=== PATIENT | female | born 1945 | race Caucasian/White ===

== ENCOUNTER 2018-05-26 11:12 | Outpatient (REF) | payer OTHER, SELFPAY | END 2018-05-26 11:32 | LOC: NCHCN 11:12 | PROVIDERS: PCP Family Medicine; Visit Provider Family Medicine | DX: R23.8 Other skin changes (principal); Z76.89 Persons encountering health services in other specified circumstances | CPT/HCPCS: 85014; 85018 ==

== ENCOUNTER 2018-11-09 11:53 | Inpatient (IN) | payer OTHER, SELFPAY ==
[2018-11-09] VITALS (68 sets, daily range): BP systolic 92–149; BP diastolic 47–102; PULSE 81–126; RESP 2–36; TEMP 36–37.6; O2SAT 84–99
--- NOTE | 2018-11-09 12:09 | DI.CT_ITS ---
SYMPTOMS/DIAGNOSIS: COUGH, HEMOPTYSIS, HYPOXIC, ? PE OR DISSECTION CT ANGIOGRAPHY OF THE CHEST: CT angiography was performed with multi slice acquisition and multi planar and 3D reconstruction. The pulmonary arteries, as well as aorta, are well opacified with IV contrast. There is no evidence of pulmonary emboli or aortic dissection. There are atherosclerotic changes of the thoracic aorta as well as upper abdominal aorta. There is mural thrombus seen in the abdominal aortic region. No pleural or pericardial effusions are seen. There is biatrial enlargement. There is an area of spiculation peripherally in the right upper lobe measuring roughly 3 x 2.2 x 1.2 cm. There is slight adjacent pleural thickening. No additional nodules are identified. There is a right inferior hilar lymph node measuring 1.8 cm in greatest dimension and a left inferior hilar lymph node measuring 1.2 cm. There are underlying changes of mild to moderate central lobular emphysema, greatest in the upper lobes. There are multiple areas of bony sclerosis within the thoracic spine as well as at the sternomanubrial junction, which may be related to degenerative changes. The findings do not appear significantly changed when compared with the chest CT from 2013. Surgical clips are seen in the right upper quadrant. There is calcification at the proximal left internal carotid artery and severe stenosis. This was seen on a previous carotid ultrasound from 2010. IMPRESSION: Spiculated area measuring 3 cm in the right upper lobe suspicious for lung carcinoma. Mildly enlarged bilateral hilar lymph nodes are seen.
[2018-11-09] MEDS: Normal Saline 500 ML 1000 ML IV (12:10)
--- NOTE | 2018-11-09 12:11 | W.ED.GENAD ---
Discharge Plan Disposition Patient Disposition: [facility] INPATIENT Condition: Stable Discharge Details Chief Complaint: SOB Clinical Impression: Lung mass, Hypoxemia, Hemoptysis Primary Care Provider: Sherwin Ceja ED Provider: Arnulfo Gonsalves Home Meds and New Rx's Prescriptions: No Action atorvastatin [Lipitor] 80 mg Tablet 80 mg PO QPM RF: 0 cromolyn 4 % Drops 1 drp OPHTHALMIC (EYE) QID PRNRF: 0 amlodipine 2.5 mg Tablet 2.5 mg PO DAILY RF: 0 warfarin [Coumadin] 2 mg Tablet 2 mg PO DAILY RF: 0 warfarin 5 mg Tablet 5 mg PO DAILY RF: 0 albuterol sulfate [ProAir HFA] 90 mcg/actuation Hfa Aerosol Inhaler 2 puff INHALATION QID PRNRF: 0 Medical Decision Making This is a very pleasant 73-year-old female with a past medical history of A. fib on Coumadin, COPD, high cholesterol and hypertension who presents with 3 days of cough, shortness of breath and a small amount of hemoptysis. She is normally not on oxygen, she has had worsening of her symptoms over the last 24-48 hours. She went to her PCP where she was noted to be in the high 70s to low 80s, and here in the ER on arrival she was in the mid to low 80s. Physical exam demonstrates crackles and mild wheezes. Concern for potential PE with this less likely being on Coumadin, malignancy, dissection, bronchitis, Jocelyne's granulomatosis. We will evaluate for any significant abnormality, supratherapeutic INR, and significant lung pathology. 2:[address] scan has returned and shows evidence of a spiculated mass concerning for malignancy. Hemoglobin is stable, troponin normal, platelets stable, INR 2.8. Calcium is within normal limits. Patient is hemodynamically stable aside for her mild hypoxemia, she has not had any hemoptysis here during her stay. I did contact [facility] and spoke with Dr. Ding, and at this time they also do agree with the need for PET scan, E bus, and bronchoscopy however they do not currently have any bed availability. He did go back and talk to the patient about contacting the [facility] the patient has made it extremely clear that she does not want any transfer to any other facility, and that the only thing that she would be willing to do would be to stay overnight here. I made it clear to her that we do not have any definitive management capabilities and the patient understands this, she shows clear decision-making capacity, and understands the risks and benefits of this. Because of the patient's hypoxemia, I do feel the need she needs pulmonary function testing and outpatient oxygen therapy. With no evidence of preethi hemoptysis, otherwise currently stable assessment, I do think it would be reasonable but not ideal to keep her overnight for PET scan, setting up oxygen, and getting follow-up at [facility]. We have contacted [facility] and they will start this follow-up process at this time. 4:28 PM We have reached out to the [facility], they do think that they will have a room available for the patient tomorrow for further management of the patient's medical issue. We have contacted the hospitalist here and Dr Wesley has agreed to accept the patient for admission. I have extensively reviewed the treatment plan with the patient. I have addressed all patient concerns at this time. I have also discussed the plan with the admitting physician and they agree with the current assessment and plan and have agreed to assume responsibility for the patient. All parties demonstrate verbal understanding and agreement with our assessment and plan at this time. EKG 12: 02 Rate 108, atrial fibrillation, intervals normal, no significant ST elevations or depression, no T wave inversions. No significant Q waves CT ANGIOGRAPHY OF THE CHEST: CT angiography was performed with multi slice acquisition and multi planar and 3D reconstruction. The pulmonary arteries, as well as aorta, are well opacified with IV contrast. There is no evidence of pulmonary emboli or aortic dissection. There are atherosclerotic changes of the thoracic aorta as well as upper abdominal aorta. There is mural thrombus seen in the abdominal aortic region. No pleural or pericardial effusions are seen. There is biatrial enlargement. There is an area of spiculation peripherally in the right upper lobe measuring roughly 3 x 2.2 x 1.2 cm. There is slight adjacent pleural thickening. No additional nodules are identified. There is a right inferior hilar lymph node measuring 1.8 cm in greatest dimension and a left inferior hilar lymph node measuring 1.2 cm. There are underlying changes of mild to moderate central lobular emphysema, greatest in the upper lobes. There are multiple areas of bony sclerosis within the thoracic spine as well as at the sternomanubrial junction, which may be related to degenerative changes. The findings do not appear significantly changed when compared with the chest CT from 2013. Surgical clips are seen in the right upper quadrant. There is calcification at the proximal left internal carotid artery and severe stenosis. This was seen on a previous carotid ultrasound from 2010. IMPRESSION: Spiculated area measuring 3 cm in the right upper lobe suspicious for lung carcinoma. Mildly enlarged bilateral hilar lymph nodes are seen. [id number]: Total DLP = 0.00 mGy-cm HPI General Date/Time Provider Initiated Documentation: 11/09/18 12:02. HPI Narrative: 73-year-old female with a past medical history of COPD, high cholesterol, A. fib on Coumadin, and hypertension who presents today with 3 days of cough and shortness of breath. She has had associated small amount of hemoptysis with this cough over the last 3 days. She feels like there is something stuck in her chest. She denies any significant pleuritic chest pain, chest pain in general, arm neck or shoulder pain. She denies any fever or chills. She denies any history of cardiac disease, malignancy, but does have a strong history of tobacco use. She denies any history of [place] or stroke. She denies any other complaints at this time. She is not on home oxygen. She denies any fever, chills. She denies any other sick contacts. She denies any episodes like this in the past. Related Data Home Medications Medication Instructions Recorded Confirmed albuterol sulfate [ProAir HFA] 2 puff INHALATION QID PRN 11/09/18 11/09/18 amlodipine 2.5 mg PO DAILY 11/09/18 11/09/18 atorvastatin [Lipitor] 80 mg PO QPM 11/09/18 11/09/18 cromolyn 1 drp OPHTHALMIC (EYE) QID PRN 11/09/18 11/09/18 warfarin 5 mg PO DAILY 11/09/18 11/09/18 warfarin [Coumadin] 2 mg PO DAILY 11/09/18 11/09/18 Allergies Allergy/AdvReac Type Severity Reaction Status Date / Time No Known Allergies Allergy Unverified 11/09/18 12:09 General Stated Complaint: SOB BOGDAN: 2 Review of Systems Review of Systems All systems reviewed & are unremarkable except as noted in HPI and below PFSH Social History Smoking and Tabacco status: Current every day Exam Narrative Exam Narrative: 1.Const: Well-nourished, Well-developed, appearing stated age 2.Eyes: PERRL, no conjunctival injection, and symmetrical lids. 3.ENT: Atraumatic external nose and ears. Moist MM. Neck: Symmetric, trachea midline, No thyromegaly. 4.CVS: +S1/S2, No murmurs or gallops. Peripheral pulses 2+ and equal in all extremities. Brisk capillary refill in all extremities. 5.RESP: Unlabored respiratory effort. Notable crackles throughout, mild wheeze, minimal rhonchi. 6.GI: Soft, Nontender/Nondistended, No hepatosplenomegaly. No guarding or rebound. 7.MSK: Normocephalic/Atraumatic, Extremities w/o deformity or ttp No cyanosis or clubbing, Normal movement of all extremities 8.Skin: Warm, Dry. No rashes or lesions. 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 Sensation grossly intact, no focal neurologic deficits. 10.Psych: (AAO) x3. Appropriate mood and affect Course Vital Signs Pulse Oximetry 84 L 11/09/18 12:00 Temperature 37.2 C 11/09/18 12:07 Temperature Source Oral 11/09/18 12:07 Pulse 102 H 11/09/18 12:01 Respiratory Rate 25 H 11/09/18 12:01 Respiratory Effort Accessory Muscle Use 11/09/18 12:04 Blood Pressure 134/60 11/09/18 12:01 Blood Pressure Position Supine 11/09/18 12:01 Pulse Oximetry 84 L 11/09/18 12:01 Oxygen Delivery Method Room Air 11/09/18 12:01 Oxygen Flow Rate 0 11/09/18 12:01 Pain Level 0 11/09/18 12:01
--- NOTE | 2018-11-09 12:15 | ED.GENADUL_ITS ---
Discharge Plan Disposition Patient Disposition: [facility] INPATIENT Condition: Stable Discharge Details Chief Complaint: SOB Clinical Impression: Lung mass, Hypoxemia, Hemoptysis Primary Care Provider: Sherwin Ceja ED Provider: Arnulfo Gonsalves Home Meds and New Rx's Prescriptions: No Action atorvastatin [Lipitor] 80 mg Tablet 80 mg PO QPM RF: 0 cromolyn 4 % Drops 1 drp OPHTHALMIC (EYE) QID PRNRF: 0 amlodipine 2.5 mg Tablet 2.5 mg PO DAILY RF: 0 warfarin [Coumadin] 2 mg Tablet 2 mg PO DAILY RF: 0 warfarin 5 mg Tablet 5 mg PO DAILY RF: 0 albuterol sulfate [ProAir HFA] 90 mcg/actuation Hfa Aerosol Inhaler 2 puff INHALATION QID PRNRF: 0 Medical Decision Making This is a very pleasant 73-year-old female with a past medical history of A. fib on Coumadin, COPD, high cholesterol and hypertension who presents with 3 days of cough, shortness of breath and a small amount of hemoptysis. She is normally not on oxygen, she has had worsening of her symptoms over the last 24- 48 hours. She went to her PCP where she was noted to be in the high 70s to low 80s, and here in the ER on arrival she was in the mid to low 80s. Physical exam demonstrates crackles and mild wheezes. Concern for potential PE with this less likely being on Coumadin, malignancy, dissection, bronchitis, Jocelyne's granulomatosis. We will evaluate for any significant abnormality, supr atherapeutic INR, and significant lung pathology. 2:[address] scan has returned and shows evidence of a spiculated mass concerning for malignancy. Hemoglobin is stable, troponin normal, platelets stable, INR 2.8. Calcium is within normal limits. Patient is hemodynamically stable aside for her mild hypoxemia, she has not had any hemoptysis here during her stay. I did contact [facility] and spoke with Dr. Ding, and at this time they also do agree with the need for PET scan, E bus, and bronchoscopy however they do not currently have any bed availability. He did go back and talk to the patient about contacting the [facility] the patient has made it extremely clear that she does not want any transfer to any other facility, and that the only thing that she would be willing to do would be to stay overnight here. I made it clear to her that we do not have any definitive management capabilities and the patient understands this, she shows clear decision-making capacity, and understands the risks and benefits of this. Because of the patient's hypoxemia, I do feel the need she needs pulmonary function testing and outpatient oxygen therapy. With no evidence of preethi hemoptysis, otherwise currently stable assessment, I do think it would be reasonable but not ideal to keep her overnight for PET scan, setting up oxygen, and getting follow-up at [facility]. We have contacted [facility] and they will start this follow-up process at this time. 4:28 PM We have reached out to the [facility], they do think that they will have a room available for the patient tomorrow for further management of the patient's medical issue. We have contacted the hospitalist here and Dr Wesley has agreed to accept the patient for admission. I have extensively reviewed the treatment plan with the patient. I have addressed all patient concerns at this time. I have also discussed the plan with the admitting physician and they agree with the current assessment and plan and have agreed to assume responsibility for the patient. All parties demonstrate verbal understanding and agreement with our assessment and plan at this time. EKG 12: 02 Rate 108, atrial fibrillation, intervals normal, no significant ST elevations or depression, no T wave inversions. No significant Q waves CT ANGIOGRAPHY OF THE CHEST: CT angiography was performed with multi slice acquisition and multi planar and 3D reconstruction. The pulmonary arteries, as well as aorta, are well opacified with IV contrast. There is no evidence of pulmonary emboli or aortic dissection. There are atherosclerotic changes of the thoracic aorta as well as upper abdominal aorta. There is mural thrombus seen in the abdominal aortic region. No pleural or pericardial effusions are seen. There is biatrial enlargement. There is an area of spiculation peripherally in the right upper lobe measuring roughly 3 x 2.2 x 1.2 cm. There is slight adjacent pleural thickening. No additional nodules are identified. There is a right inferior hilar lymph node measuring 1.8 cm in greatest dimension and a left inferior hilar lymph node measuring 1.2 cm. There are underlying changes of mild to moderate central lobular emphysema, greatest in the upper lobes. There are multiple areas of bony sclerosis within the thoracic spine as well as at the sternomanubrial junction, which may be related to degenerative changes. The findings do not appear significantly changed when compared with the chest CT from 2013. Surgical clips are seen in the right upper quadrant. There is calcification at the proximal left internal carotid artery and severe stenosis. This was seen on a previous carotid ultrasound from 2010. IMPRESSION: Spiculated area measuring 3 cm in the right upper lobe suspicious for lung carcinoma. Mildly enlarged bilateral hilar lymph nodes are seen. [id number]: Total DLP = 0.00 mGy-cm HPI General Date/Time Provider Initiated Documentation: 11/09/18 12:02 . HPI Narrative: 73-year-old female with a past medical history of COPD, high cholesterol, A. fib on Coumadin, and hypertension who presents today with 3 days of cough and shortness of breath. She has had associated small amount of hemoptysis with this cough over the last 3 days. She feels like there is something stuck in her chest. She denies any significant pleuritic chest pain, chest pain in general, arm neck or shoulder pain. She denies any fever or chills. She denies any history of cardiac disease, malignancy, but does have a strong history of tobacco use. She denies any history of [place] or stroke. She denies any other complaints at this time. She is not on home oxygen. She denie s any fever, chills. She denies any other sick contacts. She denies any episodes like this in the past. Related Data Home Medications Medication Instructions Recorded Confirmed albuterol sulfate [ProAir HFA] 2 puff INHALATION QID PRN 11/09/18 11/09/18 amlodipine 2.5 mg PO DAILY 11/09/18 11/09/18 atorvastatin [Lipitor] 80 mg PO QPM 11/09/18 11/09/18 cromolyn 1 drp OPHTHALMIC (EYE) QID PRN 11/09/18 11/09/18 warfarin 5 mg PO DAILY 11/09/18 11/09/18 warfarin [Coumadin] 2 mg PO DAILY 11/09/18 11/09/18 Allergies Allergy/AdvReac Type Severity Reaction Status Date / Time No Known Allergies Allergy Unverified 11/09/18 12:09 General Stated Complaint: SOB BOGDAN: 2 Review of Systems Review of Systems All systems reviewed & are unremarkable except as noted in HPI and below PFSH Social History Smoking and Tabacco status: Current every day Exam Narrative Exam Narrative: 1.Const: Well-nourished, Well-developed, appearing stated age 2.Eyes: PERRL, no conjunctival injection, and symmetrical lids. 3.ENT: Atraumatic external nose and ears. Moist MM. Neck: Symmetric, trachea midline, No thyromegaly. 4.CVS: +S1/S2, No murmurs or gallops. Peripheral pulses 2+ and equal in all extremities. Brisk capillary refill in all extremities. 5.RESP: Unlabored respiratory effort. Notable crackles throughout, mild wheeze, minimal rhonchi. 6.GI: Soft, Nontender/Nondistended, No hepatosplenomegaly. No guarding or rebound. 7.MSK: Normocephalic/Atraumatic, Extremities w/o deformity or ttp No cyanosis or clubbing, Normal movement of all extremities 8.Skin: Warm, Dry. No rashes or lesions. 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 Sensation grossly intact, no focal neurologic deficits. 10.Psych: (AAO) x3. Appropriate mood and affect Course Vital Signs Pulse Oximetry 84 L 11/09/18 12:00 Temperature 37.2 C 11/09/18 12:07 Temperature Source Oral 11/09/18 12:07 Pulse 102 H 11/09/18 12:01 Respiratory Rate 25 H 11/09/18 12:01 Respiratory Effort Accessory Muscle Use 11/09/18 12:04 Blood Pressure 134/60 11/09/18 12:01 Blood Pressure Position Supine 11/09/18 12:01 Pulse Oximetry 84 L 11/09/18 12:01 Oxygen Delivery Method Room Air 11/09/18 12:01 Oxygen Flow Rate 0 11/09/18 12:01 Pain Level 0 11/09/18 12:01
[2018-11-09 12:22] LABS: Abs Immature Grans 0.02 k/cumm (0.0-0.09); Absolute Basophil Count 0.03 k/cumm (0.0-0.2); Absolute Monocyte Count 0.89 k/cumm (0.11-0.7); Absolute Neutrophil Count 5.16 k/cumm (1.2-6.7); Basophils % 0.4; HCT 47.9 % (36.0-46.0); HGB 15.8 g/dL (12.0-15.5); Immature Grans % 0.3; Lymphocytes % 20.8; Mean Corpuscular Hemoglobin 31.7 pg (27.0-33.0); Monocytes % 11.6; Neutrophils % 66.9; Platelet Count 143 x1000/uL (130-400); RBC 4.99 m/cumm (4.00-5.20); RBC Distribution Width 15.1 % (11.7-14.6)
[2018-11-09 12:45] LABS: INR 2.8 (0.9-1.1); PTT Activated 36.1 sec (21.0-31.4); Prothrombin Time 28.2 sec (9.3-11.0)
[2018-11-09 12:58] LABS: ALT 17 U/L (12-78); AST 19 U/L (15-37); Albumin 2.9 g/dL (3.4-5.0); Alkaline Phosphatase 69 U/L (46-116); Anion Gap 2.1 mmol/L (3-11); BUN 12 mg/dL (7-18); Bilirubin, Total 0.4 mg/dL (0.2-1.0); CO2 33.9 mmol/L (21.0-32.0); CREATININE 0.73 mg/dL (0.55-1.02); Calcium 8.6 mg/dL (8.5-10.1); Chloride 101 mmol/L (98-107); Glucose 121 mg/dL (70-100); Potassium 3.7 mmol/L (3.5-5.1); Sodium 137 mmol/L (136-145); Total Protein 6.4 g/dL (6.4-8.2)
[2018-11-09] MEDS: Albuterol/Ipratropium 3 ML UPD VIAL UPD ×3 (13:00→23:17)
[2018-11-09 13:04] LABS: Troponin I < 0.02 ng/mL (0.00-0.06)
[2018-11-09] MEDS: Omnipaque 350 MG/ML 100 ML BTL IV (13:38)
[2018-11-09] MEDS: methylPREDNISolone SUCC 125 MG VIAL IVP (16:35)
--- NOTE | 2018-11-09 17:56 | W.PM.HP.N ---
Date of service: 11/09/18 Time of Service: 17:56 Assessment and Plan (1) COPD (chronic obstructive pulmonary disease): Current visit: Yes Status: Chronic With worsening dyspnea, increased sputum production, hemoptysis and spiculated mass noted on CT scan. Initiate IV Levaquin, steroids, scheduled nebulizer treatments and supplemental oxygen. Encourage smoking cessation. (2) Lung mass: Current visit: Yes Status: Acute Chest CT with Spiculated area measuring 3 cm in the right upper lobe suspicious for lung carcinoma and mildly enlarged bilateral hilar lymph nodes. She has been accepted at [facility] pending bed availability. Contact [facility] tomorrow to determine if a bed is available. Treat COPD exacerbation as above. (3) Smoker: Current visit: Yes Status: Acute With approximately 50 pack year history of smoking and lung mass on CT. Encourage smoking cessation. Nicotine replacement with patch and nicotrol inhaler. (4) Atrial fibrillation: Current visit: Yes Status: Chronic INR 2.8. Hold coumadin in the setting of hemoptysis. Monitor INR. Monitor heart rate. (5) HTN (hypertension): Current visit: Yes Status: Chronic Continue amlodipine per home dose. Continue to monitor BP. (6) Hypercholesteremia: Current visit: Yes Status: Acute Continue high dose Lipitor per home dose. Her medical record indicates that she may have had a cardiac cath in 2013 at [facility]- she was transferred from the ED, there is no documentation on the chart in regard to the outcome. (7) DVT prophylaxis: Current visit: Yes Status: Acute SCDs, hold on chemical prophylaxis including coumadin in the setting of hemoptysis. (8) Discharge planning issues: Current visit: Yes Status: Acute She is a DNR/DNI. She has been accepted at [facility], she will transfer when a bed becomes available. This case was discussed with Dr. Wesley who is in agreement. History of Present Illness Chief Complaint: Shortness of breath, hemoptysis Narrative: Siomara Quinones is a very pleasant 73 year old female with a past medical history significant for COPD, hypercholesterolemia, hypertension and atrial fibrillation on Coumadin who presented to the ED after being seen in her PCP office for progressively worsening SOB, wheezing and a cough with hemoptysis x3 days. She was found to have oxygen saturations in the 70s-80s in the PCP office. In the ED, she was found to be hypoxic with oxygen saturation in the 80s as well. She was afebrile and without leukocycosis. She was referred for chest CT which showed a Spiculated area measuring 3 cm in the right upper lobe suspicious for lung carcinoma and mildly enlarged bilateral hilar lymph nodes. She received IV steroids and nebulizer treatments and was placed on oxygen. Dr. Gonsalves, emergency department attending, contacted [facility] and discussed her case with Dr. Ding who agrees that the patient does need a PET scan and bronchoscopy with biopsy, however, they do not have any beds available at this time. The [facility] was contacted and has accepted the patient, they do not have any beds open at this time, however, they expect to have bed availability tomorrow. She is admitted to the [facility] floor, she will be treated for COPD exacerbation with plans to transfer her to [facility] tomorrow when a bed becomes available. The patient denies any chest pain/pressure, palpitations, she has not been eating and drinking well for the past couple of days due to feeling poorly and a decreased appetite. She denies nausea, vomiting, diarrhea. Her bowels and bladder are functioning normally, she had a normal bowel movement today. She denies dysuria or hematuria. Denies pain, no edema. Review of Systems Review of Systems All systems reviewed & are unremarkable except as noted in HPI and below PFSH Medical History Lung mass (Acute) Smoker (Acute) Atrial fibrillation (Chronic) COPD (chronic obstructive pulmonary disease) (Chronic) HTN (hypertension) (Chronic) Family History Father Hemochromatosis Cirrhosis due to hemochromatosis Diabetes Daughter Heart disease Social History Smoking and Tabacco status: Current every day alcohol intake: never substance use type: does not use Meds Home Medications Medication Instructions Recorded Confirmed Type albuterol sulfate [ProAir HFA] 2 puff INHALATION QID PRN 11/09/18 11/09/18 History amlodipine 2.5 mg PO DAILY 11/09/18 11/09/18 History atorvastatin [Lipitor] 80 mg PO QPM 11/09/18 11/09/18 History cromolyn 1 drp OPHTHALMIC (EYE) QID PRN 11/09/18 11/09/18 History warfarin 5 mg PO DAILY 11/09/18 11/09/18 History warfarin [Coumadin] 2 mg PO DAILY 11/09/18 11/09/18 History Allergies Allergy/AdvReac Type Severity Reaction Status Date / Time No Known Allergies Allergy Unverified 11/09/18 12:09 Exam Narrative Exam Narrative: General: chronically ill appearing 73 year old female, sitting up in bed, appears to be in mild respiratory distress. HEENT: face flushed, mucous membranes slightly dry, pupils equal and round. Neck: supple, no JVD. Cardiovascular: regular rate and rhythm, no murmur appreciated over lung sounds. Respiratory: Able to speak in complete sentences, appears mildly short of breath at rest. Lung sounds diminished throughout, with rales to bilateral bases and wheezing throughout. Abdomen: + bowel sounds throughout, nontender on palpation, no masses appreciated. Extremities: well perfused without clubbing, cyanosis or edema. Results Labs : 11/09/18 12:10 11/09/18 12:35 Laboratory Results - last 24 hr 11/09/18 11/09/18 11/09/18 12:10 12:10 12:10 WBC 7.70 RBC 4.99 Hgb 15.8 H Hct 47.9 H MCV 96.0 H MCH 31.7 MCHC 33.0 RDW 15.1 H Plt Count 143 MPV 11.0 Immature Gran % 0.3 Neutrophils % 66.9 Lymphocytes % 20.8 Monocytes % 11.6 Eosinophils % 0.0 Basophils % 0.4 Absolute Neutrophils 5.16 Absolute Lymphocytes 1.60 Absolute Monocytes 0.89 H Absolute Eosinophils 0.00 Absolute Basophils 0.03 PT 28.2 H INR 2.8 H APTT 36.1 H Sodium Cancelled Potassium Cancelled Chloride Cancelled Carbon Dioxide Cancelled Anion Gap Cancelled BUN Cancelled Creatinine Cancelled Estimated GFR/1.73 m2 Cancelled Glucose Cancelled Calcium Cancelled Total Bilirubin Cancelled AST Cancelled ALT Cancelled Alkaline Phosphatase Cancelled Troponin I Total Protein Cancelled Albumin Cancelled 11/09/18 12:35 WBC RBC Hgb Hct MCV MCH MCHC RDW Plt Count MPV Immature Gran % Neutrophils % Lymphocytes % Monocytes % Eosinophils % Basophils % Absolute Neutrophils Absolute Lymphocytes Absolute Monocytes Absolute Eosinophils Absolute Basophils PT INR APTT Sodium 137 Potassium 3.7 Chloride 101 Carbon Dioxide 33.9 H Anion Gap 2.1 L BUN 12 Creatinine 0.73 Estimated GFR/1.73 m2 >= 60.00 Glucose 121 H Calcium 8.6 Total Bilirubin 0.4 AST 19 ALT 17 Alkaline Phosphatase 69 Troponin I < 0.02 Total Protein 6.4 Albumin 2.9 L Last Vital Signs Temp 37.2 C 11/09/18 12:07 Pulse 89 11/09/18 17:46 Resp 21 11/09/18 17:46 BP 108/83 11/09/18 17:46 Pulse Ox 94 L 11/09/18 17:46
--- NOTE | 2018-11-09 18:05 | HPE_ITS ---
Date of service: 11/09/18 Time of Service: 17:56 Assessment and Plan (1) COPD (chronic obstructive pulmonary disease): Current visit: Yes Status: Chronic With worsening dyspnea, increased sputum production, hemoptysis and spiculated mass noted on CT scan. Initiate IV Levaquin, steroids, scheduled nebulizer treatments and supplemental oxygen. Encourage smoking cessation. (2) Lung mass: Current visit: Yes Status: Acute Chest CT with Spiculated area measuring 3 cm in the right upper lobe suspicious for lung carcinoma and mildly enlarged bilateral hilar lymph nodes. She has been accepted at [facility] pending bed availability. Contact [facility] tomorrow to determine if a bed is available. Treat COPD exacerbation as above. (3) Smoker: Current visit: Yes Status: Acute With approximately 50 pack year history of smoking and lung mass on CT. Encourage smoking cessation. Nicotine replacement with patch and nicotrol inhaler. (4) Atrial fibrillation: Current visit: Yes Status: Chronic INR 2.8. Hold coumadin in the setting of hemoptysis. Monitor INR. Monitor heart rate. (5) HTN (hypertension): Current visit: Yes Status: Chronic Continue amlodipine per home dose. Continue to monitor BP. (6) Hypercholesteremia: Current visit: Yes Status: Acute Continue high dose Lipitor per home dose. Her medical record indicates that she may have had a cardiac cath in 2013 at [facility] [place]- she was transferred from the ED, there is no documentation on the chart in regard to the outcome. (7) DVT prophylaxis: Current visit: Yes Status: Acute SCDs, hold on chemical prophylaxis including coumadin in the setting of hemoptysis. (8) Discharge planning issues: Current visit: Yes Status: Acute She is a DNR/DNI. She has been accepted at [facility], she will transfer when a bed becomes available. This case was discussed with Dr. Wesley who is in agreement. History of Present Illness Chief Complaint: Shortness of breath, hemoptysis Narrative: Siomara Quinones is a very pleasant 73 year old female with a past medical history significant for COPD, hypercholesterolemia, hypertension and atrial fibrillation on Coumadin who presented to the ED after being seen in her PCP office for progressively worsening SOB, wheezing and a cough with hemoptysis x3 days. She was found to have oxygen saturations in the 70s-80s in the PCP office. In the ED, she was found to be hypoxic with oxygen saturation in the 80s as well. She was afebrile and without leukocycosis. She was referred for chest CT which showed a Spiculated area measuring 3 cm in the right upper lobe suspicious for lung carcinoma and mildly enlarged bilateral hilar lymph nodes. She received IV steroids and nebulizer treatments and was placed on oxygen. Dr. Gonsalves, emergency department attending, contacted [facility] [place] and discussed her case with Dr. Ding who agrees that the patient does need a PET scan and bronchoscopy with biopsy, however, they do not have any beds available at this time. The [facility] was contacted and has accepted the patient, they do not have any beds open at this time, however, they expect to have bed availability tomorrow. She is admitted to the [facility] floor, she will be treated for COPD exacerbation with plans to transfer her to [facility] tomorrow when a bed becomes available. The patient denies any chest pain/pressure, palpitations, she has not been eating and drinking well for the past couple of days due to feeling poorly and a decreased appetite. She denies nausea, vomiting, diarrhea. Her bowels and bladder are functioning normally, she had a normal bowel movement today. She denies dysuria or hematuria. Denies pain, no edema. Review of Systems Review of Systems All systems reviewed & are unremarkable except as noted in HPI and below PFSH Medical History Lung mass (Acute) Smoker (Acute) Atrial fibrillation (Chronic) COPD (chronic obstructive pulmonary disease) (Chronic) HTN (hypertension) (Chronic) Family History Father Hemochromatosis Cirrhosis due to hemochromatosis Diabetes Daughter Heart disease Social History Smoking and Tabacco status: Current every day alcohol intake: never substance use type: does not use Meds Home Medications Medication Instructions Recorded Confirmed Type albuterol sulfate [ProAir HFA] 2 puff INHALATION QID PRN 11/09/18 11/09/18 History amlodipine 2.5 mg PO DAILY 11/09/18 11/09/18 History atorvastatin [Lipitor] 80 mg PO QPM 11/09/18 11/09/18 History cromolyn 1 drp OPHTHALMIC (EYE) QID PRN 11/09/18 11/09/18 History warfarin 5 mg PO DAILY 11/09/18 11/09/18 History warfarin [Coumadin] 2 mg PO DAILY 11/09/18 11/09/18 History Allergies Allergy/AdvReac Type Severity Reaction Status Date / Time No Known Allergies Allergy Unverified 11/09/18 12:09 Exam Narrative Exam Narrative: General: chronically ill appearing 73 year old female, sitting up in bed, appears to be in mild respiratory distress. HEENT: face flushed, mucous membranes slightly dry, pupils equal and round. Neck: supple, no JVD. Cardiovascular: regular rate and rhythm, no murmur appreciated over lung sounds. Respiratory: Able to speak in complete sentences, appears mildly short of breath at rest. Lung sounds diminished throughout, with rales to bilateral bases and wheezing throughout. Abdomen: + bowel sounds throughout, nontender on palpation, no masses appreciated. Extremities: well perfused without clubbing, cyanosis or edema. Results Labs : 11/09/18 12:10 11/09/18 12:35 Laboratory Results - last 24 hr 11/09/18 11/09/18 11/09/18 12:10 12:10 12:10 WBC 7.70 RBC 4.99 Hgb 15.8 H Hct 47.9 H MCV 96.0 H MCH 31.7 MCHC 33.0 RDW 15.1 H Plt Count 143 MPV 11.0 Immature Gran % 0.3 Neutrophils % 66.9 Lymphocytes % 20.8 Monocytes % 11.6 Eosinophils % 0.0 Basophils % 0.4 Absolute Neutrophils 5.16 Absolute Lymphocytes 1.60 Absolute Monocytes 0.89 H Absolute Eosinophils 0.00 Absolute Basophils 0.03 PT 28.2 H INR 2.8 H APTT 36.1 H Sodium Cancelled Potassium Cancelled Chloride Cancelled Carbon Dioxide Cancelled Anion Gap Cancelled BUN Cancelled Creatinine Cancelled Estimated GFR/1.73 m2 Cancelled Glucose Cancelled Calcium Cancelled Total Bilirubin Cancelled AST Cancelled ALT Cancelled Alkaline Phosphatase Cancelled Troponin I Total Protein Cancelled Albumin Cancelled 11/09/18 12:35 WBC RBC Hgb Hct MCV MCH MCHC RDW Plt Count MPV Immature Gran % Neutrophils % Lymphocytes % Monocytes % Eosinophils % Basophils % Absolute Neutrophils Absolute Lymphocytes Absolute Monocytes Absolute Eosinophils Absolute Basophils PT INR APTT Sodium 137 Potassium 3.7 Chloride 101 Carbon Dioxide 33.9 H Anion Gap 2.1 L BUN 12 Creatinine 0.73 Estimated GFR/1.73 m2 >= 60.00 Glucose 121 H Calcium 8.6 Total Bilirubin 0.4 AST 19 ALT 17 Alkaline Phosphatase 69 Troponin I < 0.02 Total Protein 6.4 Albumin 2.9 L Last Vital Signs Temp 37.2 C 11/09/18 12:07 Pulse 89 11/09/18 17:46 Resp 21 11/09/18 17:46 BP 108/83 11/09/18 17:46 Pulse Ox 94 L 11/09/18 17:46
[2018-11-09] MEDS: Atorvastatin 40 MG TAB 80 MG PO (20:27)
[2018-11-09] MEDS: Normal Saline 500 ML 20 ML IV (23:16)
[2018-11-09] MEDS: Normal Saline Flush 10 ML SYR IVP (23:16)
[2018-11-09] MEDS: methylPREDNISolone SUCC 125 MG VIAL 80 MG IVP (23:17)
[2018-11-09] MEDS: LEVOFLOXACIN 750 MG/150 ML BAG 100 MG IVPB (23:17)
[2018-11-09] MEDS: Normal Saline 1,000 ML 75 ML IV (23:28)
[2018-11-10] VITALS (18 sets, daily range): BP systolic 90–118; BP diastolic 52–70; PULSE 50–128; RESP 4–24; TEMP 36–37.2; O2SAT 92–98
[2018-11-10] MEDS: Albuterol/Ipratropium 3 ML UPD VIAL UPD ×3 (06:04→17:21)
[2018-11-10 07:16] LABS: Abs Immature Grans 0.01 k/cumm (0.0-0.09); Absolute Basophil Count 0.01 k/cumm (0.0-0.2); Absolute Monocyte Count 0.12 k/cumm (0.11-0.7); Absolute Neutrophil Count 5.47 k/cumm (1.2-6.7); Basophils % 0.2; HCT 46.1 % (36.0-46.0); HGB 14.8 g/dL (12.0-15.5); Immature Grans % 0.2; Lymphocytes % 8.2; Mean Corp. HGB Concentration 32.1 g/dL (32.0-36.0); Mean Corpuscular Hemoglobin 31.7 pg (27.0-33.0); Mean Corpuscular Volume 98.7 fL (80-95); Mean Platelet Volume 11.2 fL (8.0-11.0); Neutrophils % 89.4; Platelet Count 128 x1000/uL (130-400); RBC 4.67 m/cumm (4.00-5.20); RBC Distribution Width 14.7 % (11.7-14.6); White Blood Cell Count 6.11 k/cumm (4.4-10.8)
[2018-11-10 07:25] LABS: Prothrombin Time 30.8 sec (9.3-11.0)
[2018-11-10 07:42] LABS: Anion Gap 4.1 mmol/L (3-11); BUN 17 mg/dL (7-18); CO2 33.9 mmol/L (21.0-32.0); CREATININE 0.82 mg/dL (0.55-1.02); Calcium 9.1 mg/dL (8.5-10.1); Chloride 101 mmol/L (98-107); Glucose 147 mg/dL (70-100); Magnesium 1.9 mg/dL (1.8-2.4); Potassium 4.6 mmol/L (3.5-5.1); Sodium 139 mmol/L (136-145)
[2018-11-10] MEDS: methylPREDNISolone SUCC 125 MG VIAL 80 MG IVP ×2 (08:53→16:03)
[2018-11-10] MEDS: Normal Saline Flush 10 ML SYR IVP ×3 (08:54→21:13)
[2018-11-10] MEDS: amLODIPine 2.5 MG TAB PO (09:01)
--- NOTE | 2018-11-10 11:09 | PHARADMIT ---
Admission Pharmacy Clinical Review HEMOPTYSIS, LUNG MASS, HYPOXIA Code Status DNR/DNI Current Weight Wgt- 63.4 kg Renally Cleared and Narrow Therapeutic Index Meds CrCl~52 mL/min Meds-OK QTc Value / Action Taken QTc-429 na BP Control, Fever BP- 93/52 Tmax- 36.1C Electrolytes reviewed Na-139 K+4.6 Mag- 1.9 DVT Prophylaxis No (Warfarin held INR-3.0) has SCDs Opiate Usage / Scheduled Bowel Regimen Ordered No Yes Plt/SCr for Heparin / Enoxaparin Plts- 128 SCr- 0.82 INR for Warfarin INR-3.0 H/H stable, WBC/Bands H&H- 14.8/46.1 WBC- 6.11 Antibiotic appropriateness Levaquin, Cultures and Sensitivities na Surgical ABX d/c within 24 hr na DM control / Insulin Dosing BG- 147 Heart Failure (Check EF%) (ANGEL's, B-Block, Diuretics) Norvasc, IV to PO Switch No Home Meds Reviewed Yes Home Meds Not Ordered Warfarin (held) Comments Anne-Marie Raymundo (non_formulary)
--- NOTE | 2018-11-10 14:12 | PDOC.CMIN ---
- If Service Date Differs Date of service: 11/10/18 Time of Service: 14:12 Care Management Initial Assess REASON FOR HOSPITALIZATION:: COPD, Lung Mass PAST MEDICAL HISTORY/PAST SURGICAL HISTORY:: Lung mass (Acute). Smoker (Acute). Atrial fibrillation (Chronic). COPD (chronic obstructive pulmonary disease) (Chronic). HTN (hypertension) (Chronic) PREVIOUS FUNCTIONAL STATUS/SOCIAL/FAMILY SUPPORTS:: Siomara lives alone in [facility], she states that has multiple family members locally whom are supportive. Siomara reports that she is independent at baseline, she drives, and manages ADL's. Siomara remains active at this time, and states that she continues to snowblow her driveway in the winter. CURRENT FUNCTIONAL STATUS:: Currently Siomara is sitting up in her chair eating lunch. She has multiple family members in the room offering support. ADVANCE DIRECTIVES:: On file - Shakira Quinones and Hayden Quinones are alternates. Has patient been provided with information about the portal?: Yes Did the patient sign up for the portal?: No CODE STATUS:: DNR/DNI INSURANCE COVERAGE / FINANCIAL ISSUES:: [facility] CURRENT HOME/COMMUNITY SERVICES/EQUIPMENT:: Currently Siomara has no services or medical equipment in the community. PRIMARY CARE PHYSICIAN:: Dr. Ceja POTENTIAL DISCHARGE NEEDS:: F/U appointment with PCP. F/U appointment with Tech Intern PATIENT/FAMILY EDUCATION NEEDS:: Review DC instructions, any limitations, and ongoing DC planning discussion. Discuss 'Ask Me three' ANTICIPATED BARRIERS TO DISCHARGE:: None identified at this time. TRANSPORTATION:: Via private vehicle with family PLAN:: Siomara was originally slated to transfer to [facility], however at this time [facility] is stating that they will not accept her at this time. Siomara will need to F/U with a Tech Intern at time of DC, as well as her PCP. Siomara states that she will not require services at time of DC, and her family will transport her home.
[2018-11-10] MEDS: Normal Saline 1,000 ML 75 ML IV (14:13)
--- NOTE | 2018-11-10 14:25 | INITIAL_ITS ---
- If Service Date Differs Date of service: 11/10/18 Time of Service: 14:12 Care Management Initial Assess REASON FOR HOSPITALIZATION:: COPD, Lung Mass PAST MEDICAL HISTORY/PAST SURGICAL HISTORY:: Lung mass (Acute). Smoker (Acute). Atrial fibrillation (Chronic). COPD (chronic obstructive pulmonary disease) (Chronic). HTN (hypertension) (Chronic) PREVIOUS FUNCTIONAL STATUS/SOCIAL/FAMILY SUPPORTS:: Siomara lives alone in [facility], she states that has multiple family members locally whom are supportive. Siomara reports that she is independent at baseline, she drives, and manages ADL's. Siomara remains active at this time, and states that she continues to snowblow her driveway in the winter. CURRENT FUNCTIONAL STATUS:: Currently Siomara is sitting up in her chair eating lunch. She has multiple family members in the room offering support. ADVANCE DIRECTIVES:: On file - Shakira Quinones and Hayden Quinones are alternates. Has patient been provided with information about the portal?: Yes Did the patient sign up for the portal?: No CODE STATUS:: DNR/DNI INSURANCE COVERAGE / FINANCIAL ISSUES:: [facility] CURRENT HOME/COMMUNITY SERVICES/EQUIPMENT:: Currently Siomara has no services or medical equipment in the community. PRIMARY CARE PHYSICIAN:: Dr. Ceja POTENTIAL DISCHARGE NEEDS:: F/U appointment with PCP. F/U appointment with [facility] PATIENT/FAMILY EDUCATION NEEDS:: Review DC instructions, any limitations, and ongoing DC planning discussion. Discuss 'Ask Me three' ANTICIPATED BARRIERS TO DISCHARGE:: None identified at this time. TRANSPORTATION:: Via private vehicle with family PLAN:: Siomara was originally slated to transfer to [facility], however at this time [facility] is stating that they will not accept her at this time. Siomara will need to F/U with a [facility] at time of DC, as well as her PCP. Siomara states that she will not require services at time of DC, and her family will transport her home.
--- NOTE | 2018-11-10 14:38 | CHAPLAIN ---
Siomara was in bed when I visited. She said she has had many visitors and that is tiring her out. Siomara's Zachary two years go, and until yesterday, Siomara said she thought she was doing fine. She was snowblowing her driveway two days ago. She may be transferred to [facility], but was waiting to have that confirmed. Siomara is listed as [employer] on our roster, but said she has not attended the [employer] in many years. Zachary was the school custodian at the [employer] in [facility], and Siomara said she is more affiliated with [facility], but was not interested in having me contact the [employer] for her.
--- NOTE | 2018-11-10 16:56 | PGE_ITS ---
Date of Service Date of service: 11/10/18 Time of Service: 16:38 Assessment and Plan (1) COPD (chronic obstructive pulmonary disease): Current visit: Yes Status: Chronic stable and improved. will continue scheduled duonebs, IV steroids taper as needed, and levaquin day 2/5. can have albuterol prn. wean oxygen as able, not on home oxygen (2) Lung mass: Current visit: Yes Status: Acute Chest CT with Spiculated area measuring 3 cm in the right upper lobe suspicious for lung carcinoma and mildly enlarged bilateral hilar lymph nodes. will need outpatient follow up, case discussed with hematology/oncology at [facility] who does not recommend transfer for evaluation but rather to schedule outpatient work up. (3) Smoker: Current visit: Yes Status: Acute continue nicotine replacement with patch and inhaler (4) Atrial fibrillation: Current visit: Yes Status: Chronic rate controlled. will continue to hold coumadin secondary to hemoptysis. (5) HTN (hypertension): Current visit: Yes Status: Chronic blood pressures controlled. continue amlodipine and monitor (6) Hypercholesteremia: Current visit: Yes Status: Acute on high dose lipitor, continue (7) DVT prophylaxis: Current visit: Yes Status: Acute SCD's, is fully anticoagulated on coumadin which has been placed on hold for hemoptysis. (8) Discharge planning issues: Current visit: Yes Status: Acute hoping for a discharge to home tomorrow if stable. will need to wean oxygen as she does not have home oxygen. no new services recommended. will need close and expedited follow up for further work up of suspected lung carcinoma Subjective Patient reports: no new complaints and feels better Interval history since last seen: appetite improved, drinking well. has ongoing cough but no longer raising sputum. still has oxygen requirements. states bowels and bladder functioning well. Exam Const General: cooperative, no acute distress and other (older appearing than stated age.) Nutritional Appearance: average body habitus Orientation: alert, awake and oriented x3 HENMT Mouth: oral mucosa abnormal (slightly dry) and tongue abnormal with white coating Chest Chest: normal inspection of the chest Resp Effort & Inspection: normal respiratory effort and able to speak in complete sentences Auscultation: wheezes expiratory wheezes and scattered wheezes Cardio Rate: regular rate Rhythm: regular rhythm GI Inspection: normal to inspection Palpation: soft Auscultation: normal bowel sounds Skin General skin exam: other (checks with red rash consistent with rosacea ) Neuro General: alert, awake and oriented x3 Cognition: normal cognition Speech: speech normal Extrem General: normal to inspection and full ROM Objective Objective Clinical Data: Abnormal lab results 11/10/18 11/10/18 11/10/18 Range/Units 06:50 06:50 06:50 Hct 46.1 H (36.0-46.0) % MCV 98.7 H (80-95) fL RDW 14.7 H (11.7-14.6) % Plt Count 128 L (130-400) x1000/uL MPV 11.2 H (8.0-11.0) fL Absolute Lymphocytes 0.50 L (1.2-3.4) k/cumm PT 30.8 H (9.3-11.0) sec INR 3.0 H (0.9-1.1) Carbon Dioxide 33.9 H (21.0-32.0) mmol/L Glucose 147 H (70-100) mg/dL Vital Signs Temperature 36.8 C 11/10/18 16:09 Temperature Source Tympanic 11/10/18 16:09 Pulse 105 H 11/10/18 16:09 Pulse Rhythm Irregular 11/10/18 07:30 Pulse 115 H 11/09/18 17:46 Respiratory Rate 18 11/10/18 16:09 Respiratory Effort Non-Labored 11/10/18 07:30 Respiratory Depth Normal 11/10/18 07:30 Respiratory Pattern Normal 11/10/18 07:30 Blood Pressure 105/61 11/10/18 16:09 Blood Pressure Mean 89 11/09/18 17:46 Blood Pressure Position Supine 11/09/18 12:01 Pulse Oximetry 94 L 11/10/18 16:33 Oxygen Delivery Method Nasal Cannula 11/10/18 16:33 Oxygen Flow Rate 4 11/10/18 16:33 Pain Level 0 11/10/18 07:45 Intake & Output 11/09/18 11/10/18 11/10/18 23:59 11:59 23:59 Intake Total 744 / 744 400 / 1430 1030 / 1430 Output Total 250 / 250 Balance 744 / 744 150 / 1180 1030 / 1180 Weight 64.2 kg 63.4 kg Intake: IV 504 / 504 40 / 1070 1030 / 1070 Oral 240 / 240 360 / 360 Output: Urine 250 / 250 Other: Urine Color Yellow Urine Appearance Clear Comment Void x 1 in toilet Voiding Methods Toilet Toilet Laboratory Results WBC 6.11 k/cumm (4.4-10.8) 11/10/18 06:50 RBC 4.67 m/cumm (4.00-5.20) 11/10/18 06:50 Hgb 14.8 g/dL (12.0-15.5) 11/10/18 06:50 Hct 46.1 % (36.0-46.0) H 11/10/18 06:50 MCV 98.7 fL (80-95) H 11/10/18 06:50 MCH 31.7 pg (27.0-33.0) 11/10/18 06:50 MCHC 32.1 g/dL (32.0-36.0) 11/10/18 06:50 RDW 14.7 % (11.7-14.6) H 11/10/18 06:50 Plt Count 128 x1000/uL (130-400) L 11/10/18 06:50 MPV 11.2 fL (8.0-11.0) H 11/10/18 06:50 Immature Gran % 0.2 11/10/18 06:50 Neutrophils % 89.4 11/10/18 06:50 Lymphocytes % 8.2 11/10/18 06:50 Monocytes % 2.0 11/10/18 06:50 Eosinophils % 0.0 11/10/18 06:50 Basophils % 0.2 11/10/18 06:50 Absolute Neutrophils 5.47 k/cumm (1.2-6.7) 11/10/18 06:50 Absolute Lymphocytes 0.50 k/cumm (1.2-3.4) L 11/10/18 06:50 Absolute Monocytes 0.12 k/cumm (0.11-0.7) 11/10/18 06:50 Absolute Eosinophils 0.00 k/cumm (0.0-0.7) 11/10/18 06:50 Absolute Basophils 0.01 k/cumm (0.0-0.2) 11/10/18 06:50 PT 30.8 sec (9.3-11.0) H 11/10/18 06:50 INR 3.0 (0.9-1.1) H 11/10/18 06:50 APTT 36.1 sec (21.0-31.4) H 11/09/18 12:10 Sodium 139 mmol/L (136-145) 11/10/18 06:50 Potassium 4.6 mmol/L (3.5-5.1) D 11/10/18 06:50 Chloride 101 mmol/L (98-107) 11/10/18 06:50 Carbon Dioxide 33.9 mmol/L (21.0-32.0) H 11/10/18 06:50 Anion Gap 4.1 mmol/L (3-11) 11/10/18 06:50 BUN 17 mg/dL (7-18) 11/10/18 06:50 Creatinine 0.82 mg/dL (0.55-1.02) 11/10/18 06:50 Estimated GFR/1.73 m2 >= 60.00 (mL/min/1.73m2) 11/10/18 06:50 Glucose 147 mg/dL (70-100) H 11/10/18 06:50 Calcium 9.1 mg/dL (8.5-10.1) 11/10/18 06:50 Magnesium 1.9 mg/dL (1.8-2.4) 11/10/18 06:50 Total Bilirubin 0.4 mg/dL (0.2-1.0) 11/09/18 12:35 AST 19 U/L (15-37) 11/09/18 12:35 ALT 17 U/L (12-78) 11/09/18 12:35 Alkaline Phosphatase 69 U/L (46-116) 11/09/18 12:35 Troponin I < 0.02 ng/mL (0.00-0.06) 11/09/18 12:35 Total Protein 6.4 g/dL (6.4-8.2) 11/09/18 12:35 Albumin 2.9 g/dL (3.4-5.0) L 11/09/18 12:35
[2018-11-10] MEDS: Atorvastatin 40 MG TAB 80 MG PO (20:05)
[2018-11-10] MEDS: guaiFENesin 600 MG TABCR PO (20:05)
[2018-11-10] MEDS: Metoprolol 12.5 MG TAB PO (20:28)
[2018-11-10] MEDS: LEVOFLOXACIN 750 MG/150 ML BAG 100 MG IVPB (21:13)
[2018-11-11] VITALS (19 sets, daily range): BP systolic 100–148; BP diastolic 61–89; PULSE 80–98; RESP 1–20; TEMP 36–37.1; O2SAT 87–97
[2018-11-11] MEDS: Albuterol/Ipratropium 3 ML UPD VIAL UPD ×5 (00:04→23:39)
[2018-11-11] MEDS: methylPREDNISolone SUCC 125 MG VIAL 80 MG IVP ×3 (00:05→17:09)
[2018-11-11] MEDS: Metoprolol 12.5 MG TAB PO ×3 (02:16→13:53)
[2018-11-11 07:23] LABS: Abs Immature Grans 0.04 k/cumm (0.0-0.09); Absolute Lymphocyte Count 0.64 k/cumm (1.2-3.4); Absolute Monocyte Count 0.59 k/cumm (0.11-0.7); Absolute Neutrophil Count 15.59 k/cumm (1.2-6.7); Basophils % 0.1; HCT 44.8 % (36.0-46.0); HGB 14.2 g/dL (12.0-15.5); Immature Grans % 0.2; Lymphocytes % 3.8; Mean Corp. HGB Concentration 31.7 g/dL (32.0-36.0); Mean Corpuscular Hemoglobin 31.3 pg (27.0-33.0); Mean Corpuscular Volume 98.7 fL (80-95); Mean Platelet Volume 11.3 fL (8.0-11.0); Monocytes % 3.5; Neutrophils % 92.4; Platelet Count 141 x1000/uL (130-400); RBC 4.54 m/cumm (4.00-5.20); RBC Distribution Width 14.7 % (11.7-14.6); White Blood Cell Count 16.87 k/cumm (4.4-10.8)
[2018-11-11 07:36] LABS: Absolute Basophil Count 0.02 k/cumm (0.0-0.2)
[2018-11-11 07:37] LABS: INR 2.3 (0.9-1.1); Prothrombin Time 23.6 sec (9.3-11.0)
[2018-11-11 07:40] LABS: Anion Gap 1.5 mmol/L (3-11); BUN 24 mg/dL (7-18); CO2 34.5 mmol/L (21.0-32.0); CREATININE 0.71 mg/dL (0.55-1.02); Calcium 9.4 mg/dL (8.5-10.1); Chloride 100 mmol/L (98-107); Glucose 158 mg/dL (70-100); Potassium 4.7 mmol/L (3.5-5.1); Sodium 136 mmol/L (136-145)
[2018-11-11] MEDS: guaiFENesin 600 MG TABCR PO ×2 (09:24→19:49)
[2018-11-11] MEDS: Normal Saline Flush 10 ML SYR IVP ×4 (09:24→22:02)
[2018-11-11] MEDS: amLODIPine 2.5 MG TAB PO (09:25)
--- NOTE | 2018-11-11 12:14 | PDOC.CMPRO ---
- If Service Date Differs Date of service: 11/11/18 Time of Service: 12:14 Care Management Progress Note S/O: Siomara is lying in bed this morning when this field underwriter visits, she is pleasant and receptive to discussion. Siomara continues on telemetry monitoring, as well as IV steroids, IV antibiotics, and nebs at this time. No change in DC plan. A: 73 y/o female admitted 11/09/18 for Hempotysis, Lung Mass P: Siomara will return home when medically cleared with no anticipated services. She will F/U with PCP and pulmonology at time of DC. Family to transport when ready.
--- NOTE | 2018-11-11 12:24 | CMPROGNOTE_ITS ---
- If Service Date Differs Date of service: 11/11/18 Time of Service: 12:14 Care Management Progress Note S/O: Siomara is lying in bed this morning when this proposal lead writer visits, she is pleasant and receptive to discussion. Siomara continues on telemetry monitoring, as well as IV steroids, IV antibiotics, and nebs at this time. No change in DC plan. A: 73 y/o female admitted 11/09/18 for Hempotysis, Lung Mass P: Siomara will return home when medically cleared with no anticipated services. She will F/U with PCP and pulmonology at time of DC. Family to transport when ready.
--- NOTE | 2018-11-11 17:27 | W.PM.PROGNOT ---
Date of Service Date of service: 11/11/18 Time of Service: 17:28 Assessment and Plan (1) Atrial fibrillation: Current visit: Yes Status: Chronic With RVR. Increase metoprolol. Holding coumadin in light of hemoptysis earlier on this admission. INR 2.3 (2) COPD (chronic obstructive pulmonary disease): Current visit: Yes Status: Chronic Improving. Hemoptysis has resolved. Start to taper steroids and continue to wean O2. Continue empiric levofloxacin, scheduled nebulizer treatments. Encourage smoking cessation. (3) Lung mass: Current visit: Yes Status: Acute Chest CT with Spiculated area measuring 3 cm in the right upper lobe suspicious for lung carcinoma and mildly enlarged bilateral hilar lymph nodes. Will need outpatient follow up with [facility] [place] for workup of this mass. [facility] transfer cancelled prior to me taking over service. (4) Smoker: Current visit: Yes Status: Acute With approximately 50 pack year history of smoking and lung mass on CT. Encourage smoking cessation. Nicotine replacement with patch and nicotrol inhaler. (5) HTN (hypertension): Current visit: Yes Status: Chronic Continue amlodipine per home dose. Continue to monitor BP. (6) Hypercholesteremia: Current visit: Yes Status: Acute Continue high dose Lipitor per home dose. Her medical record indicates that she may have had a cardiac cath in 2013 at [facility] [place] from the ED, there is no documentation on the chart in regard to the outcome. (7) DVT prophylaxis: Current visit: Yes Status: Acute SCDs, hold on chemical prophylaxis including coumadin in the setting of hemoptysis. (8) Discharge planning issues: Current visit: Yes Status: Acute She is a DNR/DNI. Transfer to [facility] [place] is no longer being planned. Will need outpatient follow up. (9) CHF (congestive heart failure): Current visit: Yes Status: Chronic ?rate dependent Control rate and resume diuresis. Qualifiers: Heart failure type: unspecified Heart failure chronicity: acute Qualified Code(s): I50.9 - Heart failure, unspecified Subjective Interval history since last seen: Feels a little better today. States she must go home today, but is reasonable and is willing to stay another day or two to get her heart rate under control. HR went up to 150's overnight (Afib), so the patient was initiated on low dose PO lopressor, with rates now in 90s-110's. Complains of feeling lightheaded when ambulating, but denies chest pain/pressure/palpitations. Complains of cough productive of clear sputum. Things her legs are more swollen today - she has never seen them like this. Oxygen is now at 1.5 L with O2 sats around 89-90%. Exam Narrative Exam Narrative: General: Anxious elderly female, sitting in a chair, no dyspnea while talking to me HEENT: EOMI, MMM Heart: irregularly irregular rhythm, no m/r/g Lungs: no wheezing; coarse breath sounds B GI: abdomen is soft, nontender, nondistended Extremities: Trace edema BLE's, no clubbing/cyanosis, trace pedal pulses B Objective Objective Clinical Data: Abnormal lab results 11/11/18 11/11/18 11/11/18 Range/Units 07:00 07:00 07:00 WBC 16.87 H D (4.4-10.8) k/cumm MCV 98.7 H (80-95) fL MCHC 31.7 L (32.0-36.0) g/dL RDW 14.7 H (11.7-14.6) % MPV 11.3 H (8.0-11.0) fL Absolute Neutrophils 15.59 H (1.2-6.7) k/cumm Absolute Lymphocytes 0.64 L (1.2-3.4) k/cumm PT 23.6 H D (9.3-11.0) sec INR 2.3 H D (0.9-1.1) Carbon Dioxide 34.5 H (21.0-32.0) mmol/L Anion Gap 1.5 L (3-11) mmol/L BUN 24 H (7-18) mg/dL Glucose 158 H (70-100) mg/dL Vital Signs Temperature 36.2 C L 11/11/18 12:00 Temperature Source Tympanic 11/11/18 12:00 Pulse 92 H 11/11/18 16:44 Pulse Rhythm Irregular 11/11/18 16:55 Pulse 115 H 11/09/18 17:46 Respiratory Rate 20 11/11/18 12:00 Respiratory Effort Non-Labored 11/11/18 14:25 Respiratory Depth Normal 11/11/18 14:25 Respiratory Pattern Normal 11/11/18 14:25 Blood Pressure 124/76 11/11/18 12:00 Blood Pressure Mean 89 11/09/18 17:46 Blood Pressure Position Supine 11/09/18 12:01 Pulse Oximetry 95 11/11/18 12:00 Oxygen Delivery Method Nasal Cannula 11/11/18 12:00 Oxygen Flow Rate 2 11/11/18 12:00 Pain Level 0 11/11/18 12:00 Comment 11/11/18 11:50 Intake & Output 11/10/18 11/11/18 11/11/18 23:59 11:59 23:59 Intake Total 1583.75 / 2133.75 890 / 1520 630 / 1520 Balance 1583.75 / 1883.75 890 / 1520 630 / 1520 Weight 66.8 kg Intake: IV 1343.75 / 1533.75 40 / 190 150 / 190 Oral 240 / 600 850 / 1330 480 / 1330 Other: Urine Appearance Clear Comment Void x 1 in toilet Voiding Methods Toilet Toilet Laboratory Results WBC 16.87 k/cumm (4.4-10.8) H D 11/11/18 07:00 RBC 4.54 m/cumm (4.00-5.20) 11/11/18 07:00 Hgb 14.2 g/dL (12.0-15.5) 11/11/18 07:00 Hct 44.8 % (36.0-46.0) 11/11/18 07:00 MCV 98.7 fL (80-95) H 11/11/18 07:00 MCH 31.3 pg (27.0-33.0) 11/11/18 07:00 MCHC 31.7 g/dL (32.0-36.0) L 11/11/18 07:00 RDW 14.7 % (11.7-14.6) H 11/11/18 07:00 Plt Count 141 x1000/uL (130-400) 11/11/18 07:00 MPV 11.3 fL (8.0-11.0) H 11/11/18 07:00 Immature Gran % 0.2 11/11/18 07:00 Neutrophils % 92.4 11/11/18 07:00 Lymphocytes % 3.8 11/11/18 07:00 Monocytes % 3.5 11/11/18 07:00 Eosinophils % 0.0 11/11/18 07:00 Basophils % 0.1 11/11/18 07:00 Absolute Neutrophils 15.59 k/cumm (1.2-6.7) H 11/11/18 07:00 Absolute Lymphocytes 0.64 k/cumm (1.2-3.4) L 11/11/18 07:00 Absolute Monocytes 0.59 k/cumm (0.11-0.7) 11/11/18 07:00 Absolute Eosinophils 0.00 k/cumm (0.0-0.7) 11/11/18 07:00 Absolute Basophils 0.02 k/cumm (0.0-0.2) 11/11/18 07:00 PT 23.6 sec (9.3-11.0) H D 11/11/18 07:00 INR 2.3 (0.9-1.1) H D 11/11/18 07:00 APTT 36.1 sec (21.0-31.4) H 11/09/18 12:10 Sodium 136 mmol/L (136-145) 11/11/18 07:00 Potassium 4.7 mmol/L (3.5-5.1) 11/11/18 07:00 Chloride 100 mmol/L (98-107) 11/11/18 07:00 Carbon Dioxide 34.5 mmol/L (21.0-32.0) H 11/11/18 07:00 Anion Gap 1.5 mmol/L (3-11) L 11/11/18 07:00 BUN 24 mg/dL (7-18) H 11/11/18 07:00 Creatinine 0.71 mg/dL (0.55-1.02) 11/11/18 07:00 Estimated GFR/1.73 m2 >= 60.00 (mL/min/1.73m2) 11/11/18 07:00 Glucose 158 mg/dL (70-100) H 11/11/18 07:00 Calcium 9.4 mg/dL (8.5-10.1) 11/11/18 07:00 Magnesium 1.9 mg/dL (1.8-2.4) 11/10/18 06:50 Total Bilirubin 0.4 mg/dL (0.2-1.0) 11/09/18 12:35 AST 19 U/L (15-37) 11/09/18 12:35 ALT 17 U/L (12-78) 11/09/18 12:35 Alkaline Phosphatase 69 U/L (46-116) 11/09/18 12:35 Troponin I < 0.02 ng/mL (0.00-0.06) 11/09/18 12:35 Total Protein 6.4 g/dL (6.4-8.2) 11/09/18 12:35 Albumin 2.9 g/dL (3.4-5.0) L 11/09/18 12:35
--- NOTE | 2018-11-11 17:37 | PGE_ITS ---
Date of Service Date of service: 11/11/18 Time of Service: 17:28 Assessment and Plan (1) Atrial fibrillation: Current visit: Yes Status: Chronic With RVR. Increase metoprolol. Holding coumadin in light of hemoptysis earlier on this admission. INR 2.3 (2) COPD (chronic obstructive pulmonary disease): Current visit: Yes Status: Chronic Improving. Hemoptysis has resolved. Start to taper steroids and continue to wean O2. Continue empiric levofloxacin, scheduled nebulizer treatments. Encourage smoking cessation. (3) Lung mass: Current visit: Yes Status: Acute Chest CT with Spiculated area measuring 3 cm in the right upper lobe suspicious for lung carcinoma and mildly enlarged bilateral hilar lymph nodes. Will need outpatient follow up with [facility] for workup of this mass. [facility] transfer cancelled prior to me taking over service. (4) Smoker: Current visit: Yes Status: Acute With approximately 50 pack year history of smoking and lung mass on CT. Encourage smoking cessation. Nicotine replacement with patch and nicotrol inhaler. (5) HTN (hypertension): Current visit: Yes Status: Chronic Continue amlodipine per home dose. Continue to monitor BP. (6) Hypercholesteremia: Current visit: Yes Status: Acute Continue high dose Lipitor per home dose. Her medical record indicates that [place] may [place] [facility] [place], there is no documentation on the chart in regard to the outcome. (7) DVT prophylaxis: Current visit: Yes Status: Acute SCDs, hold on chemical prophylaxis including coumadin in the setting of hemoptysis. (8) Discharge planning issues: Current visit: Yes Status: Acute She is a DNR/DNI. Transfer to [facility] is no longer being planned. Will need outpatient follow up. (9) CHF (congestive heart failure): Current visit: Yes Status: Chronic ?rate dependent Control rate and resume diuresis. Qualifiers: Heart failure type: unspecified Heart failure chronicity: acute Qualified Code(s): I50.9 - Heart failure, unspecified Subjective Interval history since last seen: Feels a little better today. States she must go home today, but is reasonable and is willing to stay another day or two to get her heart rate under control. HR went up to 150's overnight (Afib), so the patient was initiated on low dose PO lopressor, with rates now in 90s-110's. Complains of feeling lightheaded when ambulating, but denies chest pain/pressure/palpitations. Complains of cough productive of clear sputum. Things her legs are more swollen today - she has never seen them like this. Oxygen is now at 1.5 L with O2 sats around 89-90%. Exam Narrative Exam Narrative: General: Anxious elderly female, sitting in a chair, no dyspnea while talking to me HEENT: EOMI, MMM Heart: irregularly irregular rhythm, no m/r/g Lungs: no wheezing; coarse breath sounds B GI: abdomen is soft, nontender, nondistended Extremities: Trace edema BLE's, no clubbing/cyanosis, trace pedal pulses B Objective Objective Clinical Data: Abnormal lab results 11/11/18 11/11/18 11/11/18 Range/Units 07:00 07:00 07:00 WBC 16.87 H D (4.4-10.8) k/cumm MCV 98.7 H (80-95) fL MCHC 31.7 L (32.0-36.0) g/dL RDW 14.7 H (11.7-14.6) % MPV 11.3 H (8.0-11.0) fL Absolute Neutrophils 15.59 H (1.2-6.7) k/cumm Absolute Lymphocytes 0.64 L (1.2-3.4) k/cumm PT 23.6 H D (9.3-11.0) sec INR 2.3 H D (0.9-1.1) Carbon Dioxide 34.5 H (21.0-32.0) mmol/L Anion Gap 1.5 L (3-11) mmol/L BUN 24 H (7-18) mg/dL Glucose 158 H (70-100) mg/dL Vital Signs Temperature 36.2 C L 11/11/18 12:00 Temperature Source Tympanic 11/11/18 12:00 Pulse 92 H 11/11/18 16:44 Pulse Rhythm Irregular 11/11/18 16:55 Pulse 115 H 11/09/18 17:46 Respiratory Rate 20 11/11/18 12:00 Respiratory Effort Non-Labored 11/11/18 14:25 Respiratory Depth Normal 11/11/18 14:25 Respiratory Pattern Normal 11/11/18 14:25 Blood Pressure 124/76 11/11/18 12:00 Blood Pressure Mean 89 11/09/18 17:46 Blood Pressure Position Supine 11/09/18 12:01 Pulse Oximetry 95 11/11/18 12:00 Oxygen Delivery Method Nasal Cannula 11/11/18 12:00 Oxygen Flow Rate 2 11/11/18 12:00 Pain Level 0 11/11/18 12:00 Comment 11/11/18 11:50 Intake & Output 11/10/18 11/11/18 11/11/18 23:59 11:59 23:59 Intake Total 1583.75 / 2133.75 890 / 1520 630 / 1520 Balance 1583.75 / 1883.75 890 / 1520 630 / 1520 Weight 66.8 kg Intake: IV 1343.75 / 1533.75 40 / 190 150 / 190 Oral 240 / 600 850 / 1330 480 / 1330 Other: Urine Appearance Clear Comment Void x 1 in toilet Voiding Methods Toilet Toilet Laboratory Results WBC 16.87 k/cumm (4.4-10.8) H D 11/11/18 07:00 RBC 4.54 m/cumm (4.00-5.20) 11/11/18 07:00 Hgb 14.2 g/dL (12.0-15.5) 11/11/18 07:00 Hct 44.8 % (36.0-46.0) 11/11/18 07:00 MCV 98.7 fL (80-95) H 11/11/18 07:00 MCH 31.3 pg (27.0-33.0) 11/11/18 07:00 MCHC 31.7 g/dL (32.0-36.0) L 11/11/18 07:00 RDW 14.7 % (11.7-14.6) H 11/11/18 07:00 Plt Count 141 x1000/uL (130-400) 11/11/18 07:00 MPV 11.3 fL (8.0-11.0) H 11/11/18 07:00 Immature Gran % 0.2 11/11/18 07:00 Neutrophils % 92.4 11/11/18 07:00 Lymphocytes % 3.8 11/11/18 07:00 Monocytes % 3.5 11/11/18 07:00 Eosinophils % 0.0 11/11/18 07:00 Basophils % 0.1 11/11/18 07:00 Absolute Neutrophils 15.59 k/cumm (1.2-6.7) H 11/11/18 07:00 Absolute Lymphocytes 0.64 k/cumm (1.2-3.4) L 11/11/18 07:00 Absolute Monocytes 0.59 k/cumm (0.11-0.7) 11/11/18 07:00 Absolute Eosinophils 0.00 k/cumm (0.0-0.7) 11/11/18 07:00 Absolute Basophils 0.02 k/cumm (0.0-0.2) 11/11/18 07:00 PT 23.6 sec (9.3-11.0) H D 11/11/18 07:00 INR 2.3 (0.9-1.1) H D 11/11/18 07:00 APTT 36.1 sec (21.0-31.4) H 11/09/18 12:10 Sodium 136 mmol/L (136-145) 11/11/18 07:00 Potassium 4.7 mmol/L (3.5-5.1) 11/11/18 07:00 Chloride 100 mmol/L (98-107) 11/11/18 07:00 Carbon Dioxide 34.5 mmol/L (21.0-32.0) H 11/11/18 07:00 Anion Gap 1.5 mmol/L (3-11) L 11/11/18 07:00 BUN 24 mg/dL (7-18) H 11/11/18 07:00 Creatinine 0.71 mg/dL (0.55-1.02) 11/11/18 07:00 Estimated GFR/1.73 m2 >= 60.00 (mL/min/1.73m2) 11/11/18 07:00 Glucose 158 mg/dL (70-100) H 11/11/18 07:00 Calcium 9.4 mg/dL (8.5-10.1) 11/11/18 07:00 Magnesium 1.9 mg/dL (1.8-2.4) 11/10/18 06:50 Total Bilirubin 0.4 mg/dL (0.2-1.0) 11/09/18 12:35 AST 19 U/L (15-37) 11/09/18 12:35 ALT 17 U/L (12-78) 11/09/18 12:35 Alkaline Phosphatase 69 U/L (46-116) 11/09/18 12:35 Troponin I < 0.02 ng/mL (0.00-0.06) 11/09/18 12:35 Total Protein 6.4 g/dL (6.4-8.2) 11/09/18 12:35 Albumin 2.9 g/dL (3.4-5.0) L 11/09/18 12:35
[2018-11-11] MEDS: Metoprolol 12.5 MG TAB 25 MG PO ×2 (18:00→23:39)
[2018-11-11] MEDS: Furosemide 20 MG/2 ML VIAL IVP (18:01)
[2018-11-11] MEDS: Atorvastatin 40 MG TAB 80 MG PO (19:49)
[2018-11-11] MEDS: LEVOFLOXACIN 750 MG/150 ML BAG 100 MG IVPB (22:02)
[2018-11-12] VITALS (18 sets, daily range): BP systolic 90–121; BP diastolic 61–81; PULSE 79–150; RESP 1–20; TEMP 36.3–37; O2SAT 88–94
[2018-11-12] MEDS: methylPREDNISolone SUCC 125 MG VIAL 60 MG IVP ×2 (01:55→09:54)
[2018-11-12] MEDS: Normal Saline Flush 10 ML SYR IVP ×5 (01:55→21:59)
[2018-11-12] MEDS: Albuterol/Ipratropium 3 ML UPD VIAL UPD ×4 (06:11→23:28)
[2018-11-12 07:03] LABS: Abs Immature Grans 0.02 k/cumm (0.0-0.09); Absolute Basophil Count 0.01 k/cumm (0.0-0.2); Absolute Lymphocyte Count 0.61 k/cumm (1.2-3.4); Basophils % 0.1; HCT 45.5 % (36.0-46.0); HGB 14.5 g/dL (12.0-15.5); Immature Grans % 0.2; Lymphocytes % 4.6; Mean Corp. HGB Concentration 31.9 g/dL (32.0-36.0); Mean Corpuscular Hemoglobin 31.4 pg (27.0-33.0); Mean Corpuscular Volume 98.5 fL (80-95); Mean Platelet Volume 10.9 fL (8.0-11.0); Monocytes % 2.3; Neutrophils % 92.8; Platelet Count 166 x1000/uL (130-400); RBC 4.62 m/cumm (4.00-5.20); White Blood Cell Count 13.31 k/cumm (4.4-10.8)
[2018-11-12 07:12] LABS: Absolute Monocyte Count 0.31 k/cumm (0.11-0.7); Absolute Neutrophil Count 12.35 k/cumm (1.2-6.7)
[2018-11-12 07:18] LABS: INR 1.7 (0.9-1.1); Prothrombin Time 17.1 sec (9.3-11.0)
[2018-11-12 07:32] LABS: Anion Gap 1.7 mmol/L (3-11); BUN 24 mg/dL (7-18); CO2 35.3 mmol/L (21.0-32.0); CREATININE 0.76 mg/dL (0.55-1.02); Calcium 9.5 mg/dL (8.5-10.1); Chloride 102 mmol/L (98-107); Glucose 153 mg/dL (70-100); Magnesium 2.2 mg/dL (1.8-2.4); NT-proBNP 4587 pg/mL; Potassium 5.1 mmol/L (3.5-5.1); Sodium 139 mmol/L (136-145); Troponin I 0.03 ng/mL (0.00-0.06)
[2018-11-12] MEDS: guaiFENesin 600 MG TABCR PO ×2 (07:56→19:22)
[2018-11-12] MEDS: Metoprolol 12.5 MG TAB 25 MG PO (10:30)
[2018-11-12] MEDS: Metoprolol 25 MG TAB PO ×3 (14:15→23:28)
--- NOTE | 2018-11-12 14:18 | CMPROGNOTE_ITS ---
- If Service Date Differs Date of service: 11/12/18 Time of Service: 14:17 Care Management Progress Note S/O:Siomara is doing well when this curriculum writer visits this morning. She states that she would like to return home, and wanted to return home yesterday. Discussed that as Siomara is still requiring oxygen at this time RT will be working with her to try to get her onto room air. No change in DC plan. A: 73 y/o female admitted 11/09/18 for Hempotysis, Lung Mass P: Siomara will return home when medically cleared with no anticipated services. She will F/U with PCP and pulmonology at time of DC. Family to transport when ready.
[2018-11-12] MEDS: Furosemide 20 MG/2 ML VIAL IVP (16:45)
[2018-11-12] MEDS: Docusate Sodium 100 MG CAP PO (16:46)
[2018-11-12] MEDS: Pantoprazole 40 MG TABCR PO (16:46)
--- NOTE | 2018-11-12 17:41 | PGE_ITS ---
Date of Service Date of service: 11/12/18 Time of Service: 16:30 Assessment and Plan (1) Atrial fibrillation: Current visit: Yes Status: Chronic With RVR. Metoprolol was increased to 25 mg PO Q6 hrs last night; this am, there was a report of hypotension of 94/63 - we do not know if it was manual; lopressor was held, but then given again when HR spiked to 120's. Continue lopressor 25 mg PO q6 hours. I have ordered an echo and am questioning whether the lung mass might be triggering her rapid rate. Consider a cardiology consult if having difficulty titrating meds. Continue to hold coumadin (hemoptysis on presentation). (2) CHF (congestive heart failure): Current visit: Yes Status: Chronic ?rate dependent Control rate; continue lasix. Checking echo. Qualifiers: Heart failure type: unspecified Heart failure chronicity: acute Qualified Code(s): I50.9 - Heart failure, unspecified (3) COPD (chronic obstructive pulmonary disease): Current visit: Yes Status: Chronic Improving. Hemoptysis has resolved. Continue steroid taper and continue to wean O2. Continue empiric levofloxacin, scheduled nebulizer treatments. Encourage smoking cessation. (4) Lung mass: Current visit: Yes Status: Acute Chest CT with Spiculated area measuring 3 cm in the right upper lobe suspicious for lung carcinoma and mildly enlarged bilateral hilar lymph nodes. Will need outpatient follow up with [facility] for workup of this mass. [facility] transfer cancelled prior to me taking over service. (5) Smoker: Current visit: Yes Status: Acute With approximately 50 pack year history of smoking and lung mass on CT. Encourage smoking cessation. Nicotine replacement with patch and nicotrol inhaler. (6) HTN (hypertension): Current visit: Yes Status: Chronic Amlodipine d/c'ed as we now need the BP to titrate lopressor up. (7) Hypercholesteremia: Current visit: Yes Status: Acute Continue high dose Lipitor per home dose. Her medical record indicates that she may have had a cardiac cath in 2013 at [facility] [place]- she was transferred from the ED, there is no documentation on the chart in regard to the outcome. (8) DVT prophylaxis: Current visit: Yes Status: Acute SCDs, hold on chemical prophylaxis including coumadin in the setting of hemoptysis. (9) Discharge planning issues: Current visit: Yes Status: Acute She is a DNR/DNI. Transfer to [facility] is no longer being planned. Will need outpatient follow up. Subjective Interval history since last seen: States her breathing is a little bit better. She cannot feel any chest pain or palpitations today, but now does mention having occasional L-sided chest ache like a tootheache at home, sometimes when she is laying down, sometimes when she is crocheting. She is not sure if this is caused by any sort of movement. She denies dizziness, nausea, vomiting. Complains of belching and constipation. Thinks her leg swelling is a little bit better, but that her legs are still more swollen than they are normally. On tele, her HR had been going up to 120's. Exam Narrative Exam Narrative: General: Anxious elderly female, sitting in a chair, no dyspnea while talking to me HEENT: EOMI, MMM Heart: irregularly irregular rhythm, no m/r/g Lungs: no wheezing; coarse breath sounds B - improved GI: abdomen is firm; nontender, nondistended Extremities: Trace edema BLE's, slight improvement; no clubbing/cyanosis, trace pedal pulses B Objective Objective Clinical Data: Abnormal lab results 11/12/18 11/12/18 11/12/18 Range/Units 06:40 06:40 06:40 WBC 13.31 H (4.4-10.8) k/cumm MCV 98.5 H (80-95) fL MCHC 31.9 L (32.0-36.0) g/dL RDW 15.0 H (11.7-14.6) % Absolute Neutrophils 12.35 H (1.2-6.7) k/cumm Absolute Lymphocytes 0.61 L (1.2-3.4) k/cumm PT 17.1 H D (9.3-11.0) sec INR 1.7 H D (0.9-1.1) Carbon Dioxide 35.3 H (21.0-32.0) mmol/L Anion Gap 1.7 L (3-11) mmol/L BUN 24 H (7-18) mg/dL Glucose 153 H (70-100) mg/dL NT-Pro-B Natriuret Pep 4587 H ( - 299) pg/mL Vital Signs Temperature 36.7 C 11/12/18 15:32 Temperature Source Tympanic 11/12/18 15:32 Pulse 91 H 11/12/18 15:32 Pulse Rhythm Irregular 11/12/18 10:10 Pulse 115 H 11/09/18 17:46 Respiratory Rate 18 11/12/18 15:32 Respiratory Effort Non-Labored 11/12/18 10:10 Respiratory Depth Normal 11/12/18 10:10 Respiratory Pattern Normal 11/12/18 10:10 Blood Pressure 121/81 11/12/18 15:32 Blood Pressure Mean 89 11/09/18 17:46 Blood Pressure Position Supine 11/09/18 12:01 Pulse Oximetry 91 L 11/12/18 15:32 Oxygen Delivery Method Nasal Cannula 11/12/18 15:32 Oxygen Flow Rate 1 11/12/18 15:32 Pain Level 0 11/12/18 07:40 Comment 11/12/18 10:04 Intake & Output 11/11/18 11/12/18 11/12/18 23:59 11:59 23:59 Intake Total 1020 / 1910 600 / 600 Output Total 1600 / 1600 900 / 1700 800 / 1700 Balance -580 / 310 -300 / -1100 -800 / -1100 Weight 66.2 kg Intake: IV 300 / 340 Oral 720 / 1570 600 / 600 Output: Urine 1600 / 1600 900 / 1700 800 / 1700 Other: Urine Color Pale Yellow Yellow Urine Appearance Clear Clear Clear Urine Odor None Normal Normal Comment Hat previously not in toilet to measure volume. Pt states she has voided 3-4 times since noon. Voiding Methods Toilet Toilet Toilet Laboratory Results WBC 13.31 k/cumm (4.4-10.8) H 11/12/18 06:40 RBC 4.62 m/cumm (4.00-5.20) 11/12/18 06:40 Hgb 14.5 g/dL (12.0-15.5) 11/12/18 06:40 Hct 45.5 % (36.0-46.0) 11/12/18 06:40 MCV 98.5 fL (80-95) H 11/12/18 06:40 MCH 31.4 pg (27.0-33.0) 11/12/18 06:40 MCHC 31.9 g/dL (32.0-36.0) L 11/12/18 06:40 RDW 15.0 % (11.7-14.6) H 11/12/18 06:40 Plt Count 166 x1000/uL (130-400) 11/12/18 06:40 MPV 10.9 fL (8.0-11.0) 11/12/18 06:40 Immature Gran % 0.2 11/12/18 06:40 Neutrophils % 92.8 11/12/18 06:40 Lymphocytes % 4.6 11/12/18 06:40 Monocytes % 2.3 11/12/18 06:40 Eosinophils % 0.0 11/12/18 06:40 Basophils % 0.1 11/12/18 06:40 Absolute Neutrophils 12.35 k/cumm (1.2-6.7) H 11/12/18 06:40 Absolute Lymphocytes 0.61 k/cumm (1.2-3.4) L 11/12/18 06:40 Absolute Monocytes 0.31 k/cumm (0.11-0.7) 11/12/18 06:40 Absolute Eosinophils 0.00 k/cumm (0.0-0.7) 11/12/18 06:40 Absolute Basophils 0.01 k/cumm (0.0-0.2) 11/12/18 06:40 PT 17.1 sec (9.3-11.0) H D 11/12/18 06:40 INR 1.7 (0.9-1.1) H D 11/12/18 06:40 APTT 36.1 sec (21.0-31.4) H 11/09/18 12:10 Sodium 139 mmol/L (136-145) 11/12/18 06:40 Potassium 5.1 mmol/L (3.5-5.1) 11/12/18 06:40 Chloride 102 mmol/L (98-107) 11/12/18 06:40 Carbon Dioxide 35.3 mmol/L (21.0-32.0) H 11/12/18 06:40 Anion Gap 1.7 mmol/L (3-11) L 11/12/18 06:40 BUN 24 mg/dL (7-18) H 11/12/18 06:40 Creatinine 0.76 mg/dL (0.55-1.02) 11/12/18 06:40 Estimated GFR/1.73 m2 >= 60.00 (mL/min/1.73m2) 11/12/18 06:40 Glucose 153 mg/dL (70-100) H 11/12/18 06:40 Calcium 9.5 mg/dL (8.5-10.1) 11/12/18 06:40 Magnesium 2.2 mg/dL (1.8-2.4) 11/12/18 06:40 Total Bilirubin 0.4 mg/dL (0.2-1.0) 11/09/18 12:35 AST 19 U/L (15-37) 11/09/18 12:35 ALT 17 U/L (12-78) 11/09/18 12:35 Alkaline Phosphatase 69 U/L (46-116) 11/09/18 12:35 Troponin I 0.03 ng/mL (0.00-0.06) 11/12/18 06:40 NT-Pro-B Natriuret Pep 4587 pg/mL (-299) H 11/12/18 06:40 Total Protein 6.4 g/dL (6.4-8.2) 11/09/18 12:35 Albumin 2.9 g/dL (3.4-5.0) L 11/09/18 12:35
[2018-11-12] MEDS: methylPREDNISolone SUCC 125 MG VIAL 40 MG IVP (18:08)
[2018-11-12] MEDS: Atorvastatin 40 MG TAB 80 MG PO (19:22)
[2018-11-12] MEDS: LEVOFLOXACIN 750 MG/150 ML BAG 100 MG IVPB (21:58)
[2018-11-13] VITALS (14 sets, daily range): BP systolic 110–122; BP diastolic 60–71; PULSE 80–154; RESP 2–20; TEMP 36.1–36.4; O2SAT 90–93
[2018-11-13] MEDS: methylPREDNISolone SUCC 125 MG VIAL 40 MG IVP ×3 (02:24→17:19)
[2018-11-13] MEDS: Normal Saline Flush 10 ML SYR IVP ×4 (02:25→17:19)
[2018-11-13] MEDS: Metoprolol 25 MG TAB PO ×4 (05:50→22:23)
[2018-11-13] MEDS: Albuterol/Ipratropium 3 ML UPD VIAL UPD ×3 (05:50→23:44)
[2018-11-13 07:18] LABS: Abs Immature Grans 0.06 k/cumm (0.0-0.09); Absolute Basophil Count 0.01 k/cumm (0.0-0.2); Absolute Lymphocyte Count 0.65 k/cumm (1.2-3.4); Absolute Monocyte Count 0.46 k/cumm (0.11-0.7); Absolute Neutrophil Count 10.05 k/cumm (1.2-6.7); Basophils % 0.1; HCT 46.8 % (36.0-46.0); HGB 15.1 g/dL (12.0-15.5); Immature Grans % 0.5; Lymphocytes % 5.8; Mean Corp. HGB Concentration 32.3 g/dL (32.0-36.0); Mean Corpuscular Hemoglobin 31.5 pg (27.0-33.0); Mean Corpuscular Volume 97.7 fL (80-95); Mean Platelet Volume 11.4 fL (8.0-11.0); Monocytes % 4.1; Neutrophils % 89.5; Platelet Count 180 x1000/uL (130-400); RBC 4.79 m/cumm (4.00-5.20); White Blood Cell Count 11.23 k/cumm (4.4-10.8)
[2018-11-13 07:36] LABS: Anion Gap 0.3 mmol/L (3-11); BUN 27 mg/dL (7-18); CO2 41.7 mmol/L (21.0-32.0); Calcium 9.3 mg/dL (8.5-10.1); Chloride 100 mmol/L (98-107); Cholesterol 124 mg/dL (50-200); Glucose 148 mg/dL (70-100); HDL Cholesterol 42 mg/dL (40-60); LDL CHOLESTEROL 66 mg/dL (<100); Magnesium 1.9 mg/dL (1.8-2.4); Potassium 4.7 mmol/L (3.5-5.1); Sodium 142 mmol/L (136-145); Triglyceride 83 mg/dL (30-150)
[2018-11-13] MEDS: Pantoprazole 40 MG TABCR PO (07:48)
[2018-11-13] MEDS: guaiFENesin 600 MG TABCR PO ×2 (07:48→19:13)
[2018-11-13] MEDS: Docusate Sodium 100 MG CAP PO (07:48)
--- NOTE | 2018-11-13 12:29 | MERGE_ITS ---
*[facility]* *[facility]* [address] [place] [address] Date of study: 11/13/2018 Transthoracic Echocardiography M-mode, complete 2D, complete spectral Doppler, and color Doppler *STUDY CONCLUSIONS* Summary: 1. Left ventricle: The cavity size was normal. Systolic function was normal. The estimated ejection fraction was 60-65%. The study was not technically sufficient to allow evaluation of LV diastolic dysfunction due to atrial fibrillation. There was no evidence of elevated ventricular filling pressure by Doppler parameters. 2. Mitral valve: There was mild regurgitation. 3. Left atrium: The atrium was severely dilated. 4. Right ventricle: The cavity size was mildly dilated. Systolic function was normal. 5. Right atrium: The atrium was severely dilated. 6. Atrial septum: No defect or patent foramen ovale was identified. 7. Tricuspid valve: There was moderate regurgitation. 8. Pulmonic valve: There was moderate regurgitation. 9. Pulmonary arteries: Pulmonary systolic pressure was in the range of 45mm Hg to 55mm Hg. 10. Inferior vena cava: The vessel was patent and normal in size. The respirophasic diameter changes were in the normal range (greater than or equal to 50%), consistent with normal central venous pressure. *PATIENT PRESENTATION* Height: 160cm ((63in) ) S/D Pressure: 110 / 71 Weight: 65.8kg ((144.7lb) ) BSA: 1.72m^2 Test start time: 12:30 PM. Test stop time: 01:15 PM. PERFORMING Unknown PERFORMING [facility] MIXER SLAGMAN RT Viry (R)(CT), RDCS CONSULTING Sherwin Ceja Yelena A REFERRING Kogan, Yelena A *PROCEDURE DATA* Procedure information: The patient was identified by two identifiers. This study was interpreted by [facility]. Pertinent images and digital data are archived for permanent storage and are available for subsequent review. No prior study was available for comparison. Study status: Routine. Transthoracic echocardiography. M-mode, complete 2D, complete spectral Doppler, and color Doppler. A Transthoracic Echocardiogram was performed. Scanning was performed from the parasternal, apical, subcostal, and suprasternal notch acoustic windows. Images were obtained using an [id number] cardiac ultrasound machine. Image quality was adequate. Study completion: The patient tolerated the procedure well. History: PMH: Afib. *CARDIAC ANATOMY* Left ventricle: The cavity size was normal. Systolic function was normal. The estimated ejection fraction was 60-65%. The study was not technically sufficient to allow evaluation of LV diastolic dysfunction due to atrial fibrillation. There was no evidence of elevated ventricular filling pressure by Doppler parameters. Aortic valve: Trileaflet. Doppler: There was no stenosis. There was no regurgitation. VTI ratio of LVOT to aortic valve: 0.63. Valve area (VTI): 1.8cm^2. Indexed valve area (VTI): 1cm^2/m^2. Peak velocity ratio of LVOT to aortic valve: 0.67. Valve area (Vmax): 1.9cm^2. Indexed valve area (Vmax): 1.1cm^2/m^2. Mean velocity ratio of LVOT to aortic valve: 0.69. Valve area (Vmean): 1.9cm^2. Indexed valve area (Vmean): 1.1cm^2/m^2. Mean gradient (S): 3.2mm Hg. Peak gradient (S): 6.1mm Hg. Aorta: Aortic root: The aortic root was normal in size. Ascending aorta: The ascending aorta was normal in size. Mitral valve: Doppler: There was no evidence for stenosis. There was mild regurgitation. Valve area by pressure half-time: 5.6cm^2. Indexed valve area by pressure half-time: 3.3cm^2/m^2. Peak gradient (D): 4.4mm Hg. Left atrium: The atrium was severely dilated. Atrial septum: No defect or patent foramen ovale was identified. Right ventricle: The cavity size was mildly dilated. Systolic function was normal. Pulmonic valve: Doppler: There was no evidence for stenosis. There was moderate regurgitation. Peak gradient (S): 2.3mm Hg. Tricuspid valve: Doppler: There was moderate regurgitation. Pulmonary artery: Poorly visualized. Pulmonary systolic pressure was in the range of 45mm Hg to 55mm Hg. Right atrium: The atrium was severely dilated. Pericardium: There was no pericardial effusion. Systemic veins: Inferior vena cava: Well visualized. The vessel was patent and normal in size. The respirophasic diameter changes were in the normal range (greater than or equal to 50%), consistent with normal central venous pressure. Baseline ECG: Atrial fibrillation. Measurements Left ventricle Value Reference LV ID, ED, PLAX 4.6 cm 3.5 - 6.0 LV ID, ES, PLAX 3.3 cm 2.1 - 4.0 LV PW thickness, ED, PLAX 0.9 cm LV end-diastolic volume, 1-p A2C 48 ml LV ejection fraction, 1-p A2C 55 % LV end-diastolic volume, 1-p A4C 44 ml LV ejection fraction, 1-p A4C 59 % LV e', lateral 0.122 m/sec LV E/e', lateral 9 LV e', medial 0.096 m/sec LV E/e', medial 11 LV e', average 0.109 m/sec LV E/e', average 10 Ventricular septum Value Reference IVS thickness, ED, PLAX 1.2 cm LVOT Value Reference LVOT ID, A-P 1.9 cm LVOT area 2.8 cm^2 LVOT peak velocity, S 0.83 m/sec LVOT mean velocity, S 0.59 m/sec LVOT VTI, S 14.5 cm LVOT peak gradient, S 2.7 mm Hg LVOT mean gradient, S 1.6 mm Hg Stroke volume (SV), LVOT DP 40 ml Stroke index (SV/bsa), LVOT DP 23 ml/m^2 Aortic valve Value Reference Aortic valve peak velocity, S 1.2 m/sec Aortic valve mean velocity, S 0.85 m/sec Aortic valve VTI, S 23.0 cm Aortic mean gradient, S 3.2 mm Hg Aortic peak gradient, S 6.1 mm Hg VTI ratio, LVOT/AV 0.63 Aortic valve area, VTI 1.8 cm^2 Velocity ratio, peak, LVOT/AV 0.67 Aortic valve area, peak velocity 1.9 cm^2 Velocity ratio, mean, LVOT/AV 0.69 Aortic valve area, mean velocity 1.9 cm^2 Aortic valve area/bsa, mean velocity 1.1 cm^2/m^2 Aorta Value Reference Aortic root ID, ED 2.9 cm Ascending aorta ID, A-P, S 2.9 cm Left atrium Value Reference LA ID, A-P, ES 3.9 cm LA ID/bsa, A-P (H) 2.3 cm/m^2 <=2.2 LA area, ES, A4C (H) 25 cm^2 8.8 - 23.4 LA area, ES, A2C 22 cm^2 LA volume/bsa, ES, 1-p A4C 50 ml/m^2 LA volume, ES, 2-p 70 ml LA volume/bsa, ES, 2-p 41 ml/m^2 LA/aortic root ratio 1.36 Mitral valve Value Reference Mitral E-wave peak velocity 1.05 m/sec Mitral deceleration time (L) 135 ms 150 - 230 Mitral pressure half-time 39 ms Mitral peak gradient, D 4.4 mm Hg Mitral valve area, PHT, DP 5.6 cm^2 Tricuspid valve Value Reference Tricuspid regurg peak velocity 3.4 m/sec Tricuspid peak RV-RA gradient 45.7 mm Hg Right atrium Value Reference RA area, ES, A4C (H) 24.9 cm^2 8.3 - 19.5 Pulmonic valve Value Reference Pulmonic peak gradient, S 2.3 mm Hg Legend: (L) and (H) tc values outside specified reference range. I have personally reviewed the images and have reviewed and edited the reported findings. Electronically signed by Patrick Dawson MD 11/13/2018 14:45
--- NOTE | 2018-11-13 14:49 | PDOC.CMPRO ---
- If Service Date Differs Date of service: 11/13/18 Time of Service: 14:49 Care Management Progress Note S/O: Siomara is lying in bed when this movie writer visits this morning. She states that she is hopeful to be able to return home soon, as she wants to be back with her dog. Siomara reports that her family is helping to care for her dog while she is hospitalized. She will have a Cardiology consult today. A: 73 y/o female admitted 11/09/18 for Hempotysis, Lung Mass P: Siomara will return home when medically cleared with no anticipated services. She will F/U with PCP and pulmonology at time of DC. Family to transport when ready.
--- NOTE | 2018-11-13 15:22 | CHAPLAIN ---
Sioamra was sitting up visiting with her son when I stopped in. She is hoping to go home because she doesn't like sitting around here. She said at home she walks up and down her stairs for exercise and she is missing that. Her son seemed to be very supportive.
[2018-11-13] MEDS: Furosemide 20 MG/2 ML VIAL IVP (15:51)
--- NOTE | 2018-11-13 19:00 | W.PM.PROGNOT ---
Date of Service Date of service: 11/13/18 Time of Service: 15:50 Assessment and Plan (1) Atrial fibrillation: Current visit: Yes Status: Chronic With RVR, rate hard to control. Cardizem 30 mg PO Q8 hours added. Continue lopressor 25 mg PO q6 hours. Change albuterol to xopenex. Continue to hold coumadin (hemoptysis on presentation). (2) CHF (congestive heart failure): Current visit: Yes Status: Chronic EF 60-65%, unclear if she has diastolic dysfunction; ?rate dependent Control rate; continue lasix. Qualifiers: Heart failure type: unspecified Heart failure chronicity: acute Qualified Code(s): I50.9 - Heart failure, unspecified (3) COPD (chronic obstructive pulmonary disease): Current visit: Yes Status: Chronic Improving. Hemoptysis has resolved. Continue steroid taper and continue to wean O2. Continue empiric levofloxacin, scheduled nebulizer treatments. Encourage smoking cessation. (4) Lung mass: Current visit: Yes Status: Acute Chest CT with Spiculated area measuring 3 cm in the right upper lobe suspicious for lung carcinoma and mildly enlarged bilateral hilar lymph nodes. Will need outpatient follow up with [facility] for workup of this mass. [facility] transfer cancelled prior to mt taking over service. (5) Smoker: Current visit: Yes Status: Acute With approximately 50 pack year history of smoking and lung mass on CT. Encourage smoking cessation. Nicotine replacement with patch and nicotrol inhaler. (6) HTN (hypertension): Current visit: Yes Status: Chronic Amlodipine d/c'ed as we now need the BP to titrate lopressor up. (7) Hypercholesteremia: Current visit: Yes Status: Acute Continue high dose Lipitor per home dose. Her medical record indicates that she may have had a cardiac cath in 2013 at [facility] [place]- she was transferred from the ED, there is no documentation on the chart in regard to the outcome. (8) DVT prophylaxis: Current visit: Yes Status: Acute SCDs, hold on chemical prophylaxis including coumadin in the setting of hemoptysis. (9) Discharge planning issues: Current visit: Yes Status: Acute She is a DNR/DNI. Transfer to [facility] is no longer being planned. Will need outpatient follow up with oncology, cardiology, etc. Subjective Interval history since last seen: Ms Quinones is not feeling better today. Her wheezing and cough are a little bit worse as is her shortness of breath. Her heart rate has been in 120's-150's on tele. She denies dizziness, chest pain, palpitations, nausea, vomiting. Exam Narrative Exam Narrative: General: Anxious elderly female, sitting in a chair, no dyspnea while talking to me HEENT: EOMI, MMM Heart: irregularly irregular rhythm, no m/r/g Lungs: wheezing on expiration B GI: abdomen is firm; nontender, nondistended Extremities: Trace edema BLE's, slight improvement; no clubbing/cyanosis, trace pedal pulses B Objective Objective Clinical Data: Abnormal lab results 11/13/18 11/13/18 Range/Units 06:45 06:45 WBC 11.23 H (4.4-10.8) k/cumm Hct 46.8 H (36.0-46.0) % MCV 97.7 H (80-95) fL RDW 15.0 H (11.7-14.6) % MPV 11.4 H (8.0-11.0) fL Absolute Neutrophils 10.05 H (1.2-6.7) k/cumm Absolute Lymphocytes 0.65 L (1.2-3.4) k/cumm Carbon Dioxide 41.7 H (21.0-32.0) mmol/L Anion Gap 0.3 L (3-11) mmol/L BUN 27 H (7-18) mg/dL Glucose 148 H (70-100) mg/dL Vital Signs Temperature 36.3 C L 11/13/18 15:35 Temperature Source Tympanic 11/13/18 15:35 Pulse 80 11/13/18 15:35 Pulse Rhythm Irregular 11/13/18 09:25 Pulse 115 H 11/09/18 17:46 Respiratory Rate 18 11/13/18 15:35 Respiratory Effort Non-Labored 11/13/18 09:25 Respiratory Depth Normal 11/13/18 09:25 Respiratory Pattern Normal 11/13/18 09:25 Blood Pressure 113/66 11/13/18 15:35 Blood Pressure Mean 89 11/09/18 17:46 Blood Pressure Position Supine 11/09/18 12:01 Pulse Oximetry 91 L 11/13/18 15:35 Oxygen Delivery Method Nasal Cannula 11/13/18 15:35 Oxygen Flow Rate 1 11/13/18 15:35 Pain Level 0 11/13/18 11:45 Comment 11/12/18 10:04 Intake & Output 11/12/18 11/13/18 11/13/18 23:59 11:59 23:59 Intake Total 1320 / 1920 930 / 1170 240 / 1170 Output Total 1700 / 2600 1300 / 3200 1900 / 3200 Balance -380 / -680 -370 / -2030 -1660 / -2030 Weight 65.2 kg Intake: IV 150 / 150 10 Oral 1170 / 1770 920 / 1160 240 / 1160 Output: Urine 1700 / 2600 1300 / 3200 1900 / 3200 Other: Urine Color Yellow Yellow Yellow Urine Appearance Clear Clear Clear Urine Odor Normal Voiding Methods Toilet Toilet Toilet Laboratory Results WBC 11.23 k/cumm (4.4-10.8) H 11/13/18 06:45 RBC 4.79 m/cumm (4.00-5.20) 11/13/18 06:45 Hgb 15.1 g/dL (12.0-15.5) 11/13/18 06:45 Hct 46.8 % (36.0-46.0) H 11/13/18 06:45 MCV 97.7 fL (80-95) H 11/13/18 06:45 MCH 31.5 pg (27.0-33.0) 11/13/18 06:45 MCHC 32.3 g/dL (32.0-36.0) 11/13/18 06:45 RDW 15.0 % (11.7-14.6) H 11/13/18 06:45 Plt Count 180 x1000/uL (130-400) 11/13/18 06:45 MPV 11.4 fL (8.0-11.0) H 11/13/18 06:45 Immature Gran % 0.5 11/13/18 06:45 Neutrophils % 89.5 11/13/18 06:45 Lymphocytes % 5.8 11/13/18 06:45 Monocytes % 4.1 11/13/18 06:45 Eosinophils % 0.0 11/13/18 06:45 Basophils % 0.1 11/13/18 06:45 Absolute Neutrophils 10.05 k/cumm (1.2-6.7) H 11/13/18 06:45 Absolute Lymphocytes 0.65 k/cumm (1.2-3.4) L 11/13/18 06:45 Absolute Monocytes 0.46 k/cumm (0.11-0.7) 11/13/18 06:45 Absolute Eosinophils 0.00 k/cumm (0.0-0.7) 11/13/18 06:45 Absolute Basophils 0.01 k/cumm (0.0-0.2) 11/13/18 06:45 PT 17.1 sec (9.3-11.0) H D 11/12/18 06:40 INR 1.7 (0.9-1.1) H D 11/12/18 06:40 APTT 36.1 sec (21.0-31.4) H 11/09/18 12:10 Sodium 142 mmol/L (136-145) 11/13/18 06:45 Potassium 4.7 mmol/L (3.5-5.1) 11/13/18 06:45 Chloride 100 mmol/L (98-107) 11/13/18 06:45 Carbon Dioxide 41.7 mmol/L (21.0-32.0) H 11/13/18 06:45 Anion Gap 0.3 mmol/L (3-11) L 11/13/18 06:45 BUN 27 mg/dL (7-18) H 11/13/18 06:45 Creatinine 0.80 mg/dL (0.55-1.02) 11/13/18 06:45 Estimated GFR/1.73 m2 >= 60.00 (mL/min/1.73m2) 11/13/18 06:45 Glucose 148 mg/dL (70-100) H 11/13/18 06:45 Calcium 9.3 mg/dL (8.5-10.1) 11/13/18 06:45 Magnesium 1.9 mg/dL (1.8-2.4) 11/13/18 06:45 Total Bilirubin 0.4 mg/dL (0.2-1.0) 11/09/18 12:35 AST 19 U/L (15-37) 11/09/18 12:35 ALT 17 U/L (12-78) 11/09/18 12:35 Alkaline Phosphatase 69 U/L (46-116) 11/09/18 12:35 Troponin I 0.03 ng/mL (0.00-0.06) 11/12/18 06:40 NT-Pro-B Natriuret Pep 4587 pg/mL (-299) H 11/12/18 06:40 Total Protein 6.4 g/dL (6.4-8.2) 11/09/18 12:35 Albumin 2.9 g/dL (3.4-5.0) L 11/09/18 12:35 Triglycerides 83 mg/dL (30-150) 11/13/18 06:45 Total Cholesterol 124 mg/dL (50-200) 11/13/18 06:45 LDL Cholesterol Direct 66 mg/dL (<100) 11/13/18 06:45 HDL Cholesterol 42 mg/dL (40-60) 11/13/18 06:45 Echo; 1. Left ventricle: The cavity size was normal. Systolic function was normal. The estimated ejection fraction was 60-65%. The study was not technically sufficient to allow evaluation of LV diastolic dysfunction due to atrial fibrillation. There was no evidence of elevated ventricular filling pressure by Doppler parameters. 2. Mitral valve: There was mild regurgitation. 3. Left atrium: The atrium was severely dilated. 4. Right ventricle: The cavity size was mildly dilated. Systolic function was normal. 5. Right atrium: The atrium was severely dilated. 6. Atrial septum: No defect or patent foramen ovale was identified. 7. Tricuspid valve: There was moderate regurgitation. 8. Pulmonic valve: There was moderate regurgitation. 9. Pulmonary arteries: Pulmonary systolic pressure was in the range of 45mm Hg to 55mm Hg. 10. Inferior vena cava: The vessel was patent and normal in size. The respirophasic diameter changes were in the normal range (greater than or equal to 50%), consistent with normal central venous pressure.
[2018-11-13] MEDS: Atorvastatin 40 MG TAB 80 MG PO (19:13)
[2018-11-13] MEDS: LEVOFLOXACIN 750 MG/150 ML BAG 100 MG IVPB (22:23)
[2018-11-14] VITALS (18 sets, daily range): BP systolic 97–123; BP diastolic 60–75; PULSE 60–123; RESP 2–24; TEMP 36.5–36.8; O2SAT 86–98
[2018-11-14] MEDS: Normal Saline Flush 10 ML SYR IVP ×3 (01:18→18:21)
[2018-11-14] MEDS: methylPREDNISolone SUCC 125 MG VIAL 60 MG IVP ×2 (01:18→10:31)
[2018-11-14] MEDS: Metoprolol 25 MG TAB PO ×4 (05:28→23:31)
[2018-11-14] MEDS: Albuterol/Ipratropium 3 ML UPD VIAL UPD ×3 (05:28→17:40)
--- NOTE | 2018-11-14 05:35 | DI.RAD_ITS ---
SYMPTOM/DIAGNOSIS: F/U EXAC OF COPD AND PNEUMONIA PORTABLE AP CHEST: Comparison is made with chest CT dated 11/09/18. The heart is mildly enlarged, unchanged. Vague density is seen projecting over the right clavicle consistent with the mass seen on previous CT. No new infiltrate, effusion or pulmonary edema is seen. IMPRESSION: Right upper lobe mass versus infiltrate, unchanged. No new abnormalities.
[2018-11-14 07:23] LABS: Abs Immature Grans 0.09 k/cumm (0.0-0.09); Absolute Basophil Count 0.01 k/cumm (0.0-0.2); Absolute Monocyte Count 0.36 k/cumm (0.11-0.7); Absolute Neutrophil Count 10.11 k/cumm (1.2-6.7); Basophils % 0.1; HCT 46.6 % (36.0-46.0); HGB 15.2 g/dL (12.0-15.5); Immature Grans % 0.8; Lymphocytes % 5.4; Mean Corp. HGB Concentration 32.6 g/dL (32.0-36.0); Mean Corpuscular Hemoglobin 31.5 pg (27.0-33.0); Mean Corpuscular Volume 96.5 fL (80-95); Mean Platelet Volume 11.6 fL (8.0-11.0); Monocytes % 3.2; Neutrophils % 90.5; Platelet Count 174 x1000/uL (130-400); RBC 4.83 m/cumm (4.00-5.20); RBC Distribution Width 14.9 % (11.7-14.6); White Blood Cell Count 11.17 k/cumm (4.4-10.8)
[2018-11-14] MEDS: Pantoprazole 40 MG TABCR PO (07:39)
[2018-11-14] MEDS: guaiFENesin 600 MG TABCR PO ×2 (07:39→19:28)
[2018-11-14] MEDS: Docusate Sodium 100 MG CAP PO (07:39)
[2018-11-14 07:45] LABS: Anion Gap 2.4 mmol/L (3-11); BUN 25 mg/dL (7-18); CO2 38.6 mmol/L (21.0-32.0); CREATININE 0.74 mg/dL (0.55-1.02); Calcium 9.1 mg/dL (8.5-10.1); Chloride 99 mmol/L (98-107); Glucose 157 mg/dL (70-100); Magnesium 2.2 mg/dL (1.8-2.4); Potassium 4.4 mmol/L (3.5-5.1); Sodium 140 mmol/L (136-145)
--- NOTE | 2018-11-14 09:16 | PDOC.CMPRO ---
- If Service Date Differs Date of service: 11/14/18 Time of Service: 09:16 Care Management Progress Note S/O:CM met with patient at the bedside she is alert and engaged. She continues to be monitored on telemetry. She is not ready for discharge today medications are being adjusted to control heart rate. Jessica states she does not want to go to [facility] for consult of treatment. She intends to go to [facility] and request a referral be faxed to pulmonoligist at [facility]. Jessica states she does not have any appointments scheduled at [facility] and does not want to travel there. CM will fax discharge summary and referral to [facility]. Jessica developed chest pain when CM in the room she states the pain is in her left side of her chest. CM reported the pain to [facility]. A: 73 y/o female admitted 11/09/18 for Hempotysis, Lung Mass P: Siomara will return home when medically cleared with no anticipated services. She will F/U with PCP and pulmonology at [facility]. Family vs RCT transport at time of discharge.
--- NOTE | 2018-11-14 09:17 | CMPROGNOTE_ITS ---
- If Service Date Differs Date of service: 11/14/18 Time of Service: 09:16 Care Management Progress Note S/O:CM met with patient at the bedside she is alert and engaged. She continues to be monitored on telemetry. She is not ready for discharge today medications are being adjusted to control heart rate. Jessica states she does not want to go to [facility] for consult of treatment. She intends to go to [facility] and request a referral be faxed to pulmonoligist at [facility]. Jessica states she does not have any aliya ointments scheduled at [facility] and does not want to travel there. CM will fax discharge summary and referral to [facility]. Jessica developed chest pain when CM in the room she states the pain is in her left side of her chest. CM reported the pain to [facility]. A: 73 y/o female admitted 11/09/18 for Hempotysis, Lung Mass P: Siomara will return home when medically cleared with no anticipated services. She will F/U with PCP and pulmonology at [facility]. Family vs RCT transport at time of discharge.
[2018-11-14] MEDS: Furosemide 20 MG/2 ML VIAL IVP (15:00)
[2018-11-14] MEDS: hydrOXYzine HCL 25 MG TAB PO (15:00)
[2018-11-14] MEDS: methylPREDNISolone SUCC 40 MG VIAL IVP (18:20)
--- NOTE | 2018-11-14 18:50 | W.PM.PROGNOT ---
Date of Service Date of service: 11/14/18 Time of Service: 14:20 Assessment and Plan (1) Atrial fibrillation: Current visit: Yes Status: Chronic With RVR, rate hard to control. Cardizem increased to 60 Q 6 hrs with holding parameters. Continue lopressor 25 mg PO q6 hours. Change albuterol to xopenex. Continue to hold coumadin (hemoptysis on presentation). (2) CHF (congestive heart failure): Current visit: Yes Status: Chronic EF 60-65%, unclear if she has diastolic dysfunction; ?rate dependent Control rate; continue lasix. Qualifiers: Heart failure type: unspecified Heart failure chronicity: acute Qualified Code(s): I50.9 - Heart failure, unspecified (3) COPD (chronic obstructive pulmonary disease): Current visit: Yes Status: Chronic Improving. Hemoptysis has resolved. Continue steroid taper and continue to wean O2. Levofloxacin d/c'ed; make scheduled nebulizer treatments prn. Encourage smoking cessation. (4) Lung mass: Current visit: Yes Status: Acute Chest CT with Spiculated area measuring 3 cm in the right upper lobe suspicious for lung carcinoma and mildly enlarged bilateral hilar lymph nodes. Will need outpatient follow up with [facility] for workup of this mass. [facility] transfer cancelled prior to me taking over service. (5) Smoker: Current visit: Yes Status: Acute With approximately 50 pack year history of smoking and lung mass on CT. Encourage smoking cessation. Nicotine replacement with patch and nicotrol inhaler. (6) HTN (hypertension): Current visit: Yes Status: Chronic Amlodipine d/c'ed as we now need the BP to titrate lopressor and cardizem up. (7) Hypercholesteremia: Current visit: Yes Status: Acute Continue high dose Lipitor per home dose. Her medical record indicates that she may have [place] [facility], there is no documentation on the chart in regard to the outcome. (8) DVT prophylaxis: Current visit: Yes Status: Acute SCDs, hold on chemical prophylaxis including coumadin in the setting of hemoptysis. (9) Discharge planning issues: Current visit: Yes Status: Acute She is a DNR/DNI. Transfer to [facility] is no longer being planned. Will need outpatient follow up with oncology, cardiology, etc. Hoping to be able to discharge patient home tomorrow. Subjective Interval history since last seen: Remains in rapid Afib/flutter with HR up to 130's. States legs are less swollen and breathing is better. Continues to require oxygen, saturating 88% on RA. Denies dizziness, chest pain, nausea, vomiting. Cannot wait to get home. Exam Narrative Exam Narrative: General: Anxious elderly female, sitting in a chair, no dyspnea while talking to me HEENT: EOMI, MMM Heart: irregularly irregular rhythm, no m/r/g Lungs: improved wheezing on expiration B GI: abdomen is firm; nontender, nondistended Extremities: Trace edema BLE's, improved; no clubbing/cyanosis, trace pedal pulses B Objective Objective Clinical Data: Abnormal lab results 11/14/18 11/14/18 Range/Units 06:28 06:28 WBC 11.17 H (4.4-10.8) k/cumm Hct 46.6 H (36.0-46.0) % MCV 96.5 H (80-95) fL RDW 14.9 H (11.7-14.6) % MPV 11.6 H (8.0-11.0) fL Absolute Neutrophils 10.11 H (1.2-6.7) k/cumm Absolute Lymphocytes 0.60 L (1.2-3.4) k/cumm Carbon Dioxide 38.6 H (21.0-32.0) mmol/L Anion Gap 2.4 L (3-11) mmol/L BUN 25 H (7-18) mg/dL Glucose 157 H (70-100) mg/dL Vital Signs Temperature 36.5 C 11/14/18 16:36 Temperature Source Skin 11/14/18 16:36 Pulse 94 H 11/14/18 18:19 Pulse Rhythm Irregular 11/14/18 07:56 Pulse 115 H 11/09/18 17:46 Respiratory Rate 20 11/14/18 16:36 Respiratory Effort Pursed Lip 11/14/18 07:56 Respiratory Depth Deep 11/14/18 07:56 Respiratory Pattern Irregular 11/14/18 07:56 Blood Pressure 101/68 11/14/18 18:19 Blood Pressure Mean 89 11/09/18 17:46 Blood Pressure Position Supine 11/09/18 12:01 Pulse Oximetry 91 L 11/14/18 16:36 Oxygen Delivery Method Nasal Cannula 11/14/18 16:36 Oxygen Flow Rate 1 11/14/18 16:36 Pain Level 0 11/14/18 08:18 Comment 11/14/18 09:58 Intake & Output 11/13/18 11/14/18 11/14/18 23:59 11:59 23:59 Intake Total 240 / 1170 0 / 1989 1180 / 1989 Output Total 1900 / 3200 1350 / 1900 550 / 1900 Balance -1660 / -540 / 90 630 / 90 Weight 64.7 kg Intake: IV 150 / 150 Oral 240 / 1160 660 / 1840 1180 / 1840 Output: Urine 1900 / 3200 1350 / 1900 550 / 1900 Other: Urine Color Yellow Pale Yellow Yellow Urine Appearance Clear Clear Clear Urine Odor None Normal Voiding Methods Toilet Toilet Toilet Laboratory Results WBC 11.17 k/cumm (4.4-10.8) H 11/14/18 06:28 RBC 4.83 m/cumm (4.00-5.20) 11/14/18 06:28 Hgb 15.2 g/dL (12.0-15.5) 11/14/18 06:28 Hct 46.6 % (36.0-46.0) H 11/14/18 06:28 MCV 96.5 fL (80-95) H 11/14/18 06:28 MCH 31.5 pg (27.0-33.0) 11/14/18 06:28 MCHC 32.6 g/dL (32.0-36.0) 11/14/18 06:28 RDW 14.9 % (11.7-14.6) H 11/14/18 06:28 Plt Count 174 x1000/uL (130-400) 11/14/18 06:28 MPV 11.6 fL (8.0-11.0) H 11/14/18 06:28 Immature Gran % 0.8 11/14/18 06:28 Neutrophils % 90.5 11/14/18 06:28 Lymphocytes % 5.4 11/14/18 06:28 Monocytes % 3.2 11/14/18 06:28 Eosinophils % 0.0 11/14/18 06:28 Basophils % 0.1 11/14/18 06:28 Absolute Neutrophils 10.11 k/cumm (1.2-6.7) H 11/14/18 06:28 Absolute Lymphocytes 0.60 k/cumm (1.2-3.4) L 11/14/18 06:28 Absolute Monocytes 0.36 k/cumm (0.11-0.7) 11/14/18 06:28 Absolute Eosinophils 0.00 k/cumm (0.0-0.7) 11/14/18 06:28 Absolute Basophils 0.01 k/cumm (0.0-0.2) 11/14/18 06:28 PT 17.1 sec (9.3-11.0) H D 11/12/18 06:40 INR 1.7 (0.9-1.1) H D 11/12/18 06:40 APTT 36.1 sec (21.0-31.4) H 11/09/18 12:10 Sodium 140 mmol/L (136-145) 11/14/18 06:28 Potassium 4.4 mmol/L (3.5-5.1) 11/14/18 06:28 Chloride 99 mmol/L (98-107) 11/14/18 06:28 Carbon Dioxide 38.6 mmol/L (21.0-32.0) H 11/14/18 06:28 Anion Gap 2.4 mmol/L (3-11) L 11/14/18 06:28 BUN 25 mg/dL (7-18) H 11/14/18 06:28 Creatinine 0.74 mg/dL (0.55-1.02) 11/14/18 06:28 Estimated GFR/1.73 m2 >= 60.00 (mL/min/1.73m2) 11/14/18 06:28 Glucose 157 mg/dL (70-100) H 11/14/18 06:28 Calcium 9.1 mg/dL (8.5-10.1) 11/14/18 06:28 Magnesium 2.2 mg/dL (1.8-2.4) 11/14/18 06:28 Total Bilirubin 0.4 mg/dL (0.2-1.0) 11/09/18 12:35 AST 19 U/L (15-37) 11/09/18 12:35 ALT 17 U/L (12-78) 11/09/18 12:35 Alkaline Phosphatase 69 U/L (46-116) 11/09/18 12:35 Troponin I 0.03 ng/mL (0.00-0.06) 11/12/18 06:40 NT-Pro-B Natriuret Pep 4587 pg/mL (-299) H 11/12/18 06:40 Total Protein 6.4 g/dL (6.4-8.2) 11/09/18 12:35 Albumin 2.9 g/dL (3.4-5.0) L 11/09/18 12:35 Triglycerides 83 mg/dL (30-150) 11/13/18 06:45 Total Cholesterol 124 mg/dL (50-200) 11/13/18 06:45 LDL Cholesterol Direct 66 mg/dL (<100) 11/13/18 06:45 HDL Cholesterol 42 mg/dL (40-60) 11/13/18 06:45
--- NOTE | 2018-11-14 18:55 | PGE_ITS ---
Date of Service Date of service: 11/14/18 Time of Service: 14:20 Assessment and Plan (1) Atrial fibrillation: Current visit: Yes Status: Chronic With RVR, rate hard to control. Cardizem increased to 60 Q 6 hrs with holding parameters. Continue lopressor 25 mg PO q6 hours. Change albuterol to xopenex. Continue to hold coumadin (hemoptysis on presentation). (2) CHF (congestive heart failure): Current visit: Yes Status: Chronic EF 60-65%, unclear if she has diastolic dysfunction; ?rate dependent Control rate; continue lasix. Qualifiers: Heart failure type: unspecified Heart failure chronicity: acute Qualified Code(s): I50.9 - Heart failure, unspecified (3) COPD (chronic obstructive pulmonary disease): Current visit: Yes Status: Chronic Improving. Hemoptysis has resolved. Continue steroid taper and continue to wean O2. Levofloxacin d/c'ed; make scheduled nebulizer treatments prn. Encourage smoking cessation. (4) Lung mass: Current visit: Yes Status: Acute Chest CT with Spiculated area measuring 3 cm in the right upper lobe suspicious for lung carcinoma and mildly enlarged bilateral hilar lymph nodes. Will need outpatient follow up with [facility] for workup of this mass. [facility] transfer cancelled prior to me taking over service. (5) Smoker: Current visit: Yes Status: Acute With approximately 50 pack year history of smoking and lung mass on CT. Encourage smoking cessation. Nicotine replacement with patch and nicotrol inhaler. (6) HTN (hypertension): Current visit: Yes Status: Chronic Amlodipine d/c'ed as we now need the BP to titrate lopressor and cardizem up. (7) Hypercholesteremia: Current visit: Yes Status: Acute Continue high dose Lipitor per home dose. Her medical record indicates that she may have [place] [facility] [place], there is no documentation on the chart in regard to the outcome. (8) DVT prophylaxis: Current visit: Yes Status: Acute SCDs, hold on chemical prophylaxis including coumadin in the setting of hemoptysis. (9) Discharge planning issues: Current visit: Yes Status: Acute She is a DNR/DNI. Transfer to [facility] is no longer being planned. Will need outpatient follow up with oncology, cardiology, etc. Hoping to be able to discharge patient home tomorrow. Subjective Interval history since last seen: Remains in rapid Afib/flutter with HR up to 130's. States legs are less swollen and breathing is better. Continues to require oxygen, saturating 88% on RA. Denies dizziness, chest pain, nausea, vomiting. Cannot wait to get home. Exam Narrative Exam Narrative: General: Anxious elderly female, sitting in a chair, no dyspnea while talking to me HEENT: EOMI, MMM Heart: irregularly irregular rhythm, no m/r/g Lungs: improved wheezing on expiration B GI: abdomen is firm; nontender, nondistended Extremities: Trace edema BLE's, improved; no clubbing/cyanosis, trace pedal pulses B Objective Objective Clinical Data: Abnormal lab results 11/14/18 11/14/18 Range/Units 06:28 06:28 WBC 11.17 H (4.4-10.8) k/cumm Hct 46.6 H (36.0-46.0) % MCV 96.5 H (80-95) fL RDW 14.9 H (11.7-14.6) % MPV 11.6 H (8.0-11.0) fL Absolute Neutrophils 10.11 H (1.2-6.7) k/cumm Absolute Lymphocytes 0.60 L (1.2-3.4) k/cumm Carbon Dioxide 38.6 H (21.0-32.0) mmol/L Anion Gap 2.4 L (3-11) mmol/L BUN 25 H (7-18) mg/dL Glucose 157 H (70-100) mg/dL Vital Signs Temperature 36.5 C 11/14/18 16:36 Temperature Source Skin 11/14/18 16:36 Pulse 94 H 11/14/18 18:19 Pulse Rhythm Irregular 11/14/18 07:56 Pulse 115 H 11/09/18 17:46 Respiratory Rate 20 11/14/18 16:36 Respiratory Effort Pursed Lip 11/14/18 07:56 Respiratory Depth Deep 11/14/18 07:56 Respiratory Pattern Irregular 11/14/18 07:56 Blood Pressure 101/68 11/14/18 18:19 Blood Pressure Mean 89 11/09/18 17:46 Blood Pressure Position Supine 11/09/18 12:01 Pulse Oximetry 91 L 11/14/18 16:36 Oxygen Delivery Method Nasal Cannula 11/14/18 16:36 Oxygen Flow Rate 1 11/14/18 16:36 Pain Level 0 11/14/18 08:18 Comment 11/14/18 09:58 Intake & Output 11/13/18 11/14/18 11/14/18 23:59 11:59 23:59 Intake Total 240 / 1170 0 / 1989 1180 / 1989 Output Total 1900 / 3200 1350 / 1900 550 / 1900 Balance -1660 / -540 / 90 630 / 90 Weight 64.7 kg Intake: IV 150 / 150 Oral 240 / 1160 660 / 1840 1180 / 1840 Output: Urine 1900 / 3200 1350 / 1900 550 / 1900 Other: Urine Color Yellow Pale Yellow Yellow Urine Appearance Clear Clear Clear Urine Odor None Normal Voiding Methods Toilet Toilet Toilet Laboratory Results WBC 11.17 k/cumm (4.4-10.8) H 11/14/18 06:28 RBC 4.83 m/cumm (4.00-5.20) 11/14/18 06:28 Hgb 15.2 g/dL (12.0-15.5) 11/14/18 06:28 Hct 46.6 % (36.0-46.0) H 11/14/18 06:28 MCV 96.5 fL (80-95) H 11/14/18 06:28 MCH 31.5 pg (27.0-33.0) 11/14/18 06:28 MCHC 32.6 g/dL (32.0-36.0) 11/14/18 06:28 RDW 14.9 % (11.7-14.6) H 11/14/18 06:28 Plt Count 174 x1000/uL (130-400) 11/14/18 06:28 MPV 11.6 fL (8.0-11.0) H 11/14/18 06:28 Immature Gran % 0.8 11/14/18 06:28 Neutrophils % 90.5 11/14/18 06:28 Lymphocytes % 5.4 11/14/18 06:28 Monocytes % 3.2 11/14/18 06:28 Eosinophils % 0.0 11/14/18 06:28 Basophils % 0.1 11/14/18 06:28 Absolute Neutrophils 10.11 k/cumm (1.2-6.7) H 11/14/18 06:28 Absolute Lymphocytes 0.60 k/cumm (1.2-3.4) L 11/14/18 06:28 Absolute Monocytes 0.36 k/cumm (0.11-0.7) 11/14/18 06:28 Absolute Eosinophils 0.00 k/cumm (0.0-0.7) 11/14/18 06:28 Absolute Basophils 0.01 k/cumm (0.0-0.2) 11/14/18 06:28 PT 17.1 sec (9.3-11.0) H D 11/12/18 06:40 INR 1.7 (0.9-1.1) H D 11/12/18 06:40 APTT 36.1 sec (21.0-31.4) H 11/09/18 12:10 Sodium 140 mmol/L (136-145) 11/14/18 06:28 Potassium 4.4 mmol/L (3.5-5.1) 11/14/18 06:28 Chloride 99 mmol/L (98-107) 11/14/18 06:28 Carbon Dioxide 38.6 mmol/L (21.0-32.0) H 11/14/18 06:28 Anion Gap 2.4 mmol/L (3-11) L 11/14/18 06:28 BUN 25 mg/dL (7-18) H 11/14/18 06:28 Creatinine 0.74 mg/dL (0.55-1.02) 11/14/18 06:28 Estimated GFR/1.73 m2 >= 60.00 (mL/min/1.73m2) 11/14/18 06:28 Glucose 157 mg/dL (70-100) H 11/14/18 06:28 Calcium 9.1 mg/dL (8.5-10.1) 11/14/18 06:28 Magnesium 2.2 mg/dL (1.8-2.4) 11/14/18 06:28 Total Bilirubin 0.4 mg/dL (0.2-1.0) 11/09/18 12:35 AST 19 U/L (15-37) 11/09/18 12:35 ALT 17 U/L (12-78) 11/09/18 12:35 Alkaline Phosphatase 69 U/L (46-116) 11/09/18 12:35 Troponin I 0.03 ng/mL (0.00-0.06) 11/12/18 06:40 NT-Pro-B Natriuret Pep 4587 pg/mL (-299) H 11/12/18 06:40 Total Protein 6.4 g/dL (6.4-8.2) 11/09/18 12:35 Albumin 2.9 g/dL (3.4-5.0) L 11/09/18 12:35 Triglycerides 83 mg/dL (30-150) 11/13/18 06:45 Total Cholesterol 124 mg/dL (50-200) 11/13/18 06:45 LDL Cholesterol Direct 66 mg/dL (<100) 11/13/18 06:45 HDL Cholesterol 42 mg/dL (40-60) 11/13/18 06:45
[2018-11-14] MEDS: Atorvastatin 40 MG TAB 80 MG PO (19:29)
[2018-11-15] VITALS (12 sets, daily range): BP systolic 116–145; BP diastolic 65–72; PULSE 71–115; RESP 20; TEMP 36.4–37; O2SAT 87–95
[2018-11-15] MEDS: Normal Saline Flush 10 ML SYR IVP ×3 (01:37→17:17)
[2018-11-15] MEDS: methylPREDNISolone SUCC 40 MG VIAL IVP ×3 (01:37→17:17)
[2018-11-15] MEDS: Pantoprazole 40 MG TABCR PO (06:46)
[2018-11-15 07:03] LABS: Abs Immature Grans 0.16 k/cumm (0.0-0.09); Absolute Basophil Count 0.02 k/cumm (0.0-0.2); Absolute Eosinophil Count 0.02 k/cumm (0.0-0.7); Absolute Lymphocyte Count 0.72 k/cumm (1.2-3.4); Absolute Monocyte Count 0.41 k/cumm (0.11-0.7); Absolute Neutrophil Count 9.47 k/cumm (1.2-6.7); Basophils % 0.2; Eosinophils % 0.2; HCT 46.9 % (36.0-46.0); HGB 15.4 g/dL (12.0-15.5); Immature Grans % 1.5; Lymphocytes % 6.7; Mean Corp. HGB Concentration 32.8 g/dL (32.0-36.0); Mean Corpuscular Hemoglobin 31.4 pg (27.0-33.0); Mean Corpuscular Volume 95.7 fL (80-95); Mean Platelet Volume 11.1 fL (8.0-11.0); Monocytes % 3.8; Neutrophils % 87.6; Platelet Count 176 x1000/uL (130-400); RBC Distribution Width 14.9 % (11.7-14.6)
[2018-11-15 07:07] LABS: Anion Gap 0.7 mmol/L (3-11); BUN 31 mg/dL (7-18); CO2 43.3 mmol/L (21.0-32.0); CREATININE 0.81 mg/dL (0.55-1.02); Calcium 9.2 mg/dL (8.5-10.1); Chloride 97 mmol/L (98-107); Glucose 149 mg/dL (70-100); Magnesium 2.4 mg/dL (1.8-2.4); Potassium 4.8 mmol/L (3.5-5.1); Sodium 141 mmol/L (136-145)
[2018-11-15] MEDS: guaiFENesin 600 MG TABCR PO ×2 (09:16→19:28)
[2018-11-15] MEDS: Metoprolol CR 100 MG TABCR PO (11:58)
[2018-11-15 12:25] LABS: Troponin I 0.02 ng/mL (0.00-0.06)
--- NOTE | 2018-11-15 12:52 | W.CARDCONSUL ---
Date of service: 11/15/18 Time of Service: 12:52 Assessment and Plan (1) Atrial fibrillation: Current visit: Yes Status: Chronic Atrial fibrillation with heart rates in the 100's. Asymptomatic. Oral anti-correlation interrupted because of hemoptysis hence no role for mandaen of sinus rhythm at the moment. Reasonable blood pressure, no evidence of overt heart failure or angina. Intensify rate control to achieve resting heart rate of less than 110 beats per minutes ideally in the 70s-90s. Maximum daily dose metoprolol succinate 200 mg daily. Maximum daily dose diltiazem extended release 480 mg daily. Divided daily dose up into morning and evening. Resume oral anticoagulation once safe. History of Present Illness Chief Complaint: Afib with RVR Narrative: 73-year-old woman with ongoing tobacco use, COPD, carotid artery disease, hypertension, hypercholesterolemia and atrial fibrillation. Patient currently admitted because of hypoxic respiratory failure and hemoptysis. Found to have a lung mass concerning for cancer; outpatient pulmonary evaluation for biopsy has been arranged for. Patient is in atrial fibrillation with heart rates ranging from the 100's. She is not aware of the arrhythmia. She does not have documented weekly INRs for the last 4 weeks. Anti-coagulation has been stopped because of hemoptysis. Echocardiogram notable for an EF of 60-65%, diastolic dysfunction, mild mitral regurgitation, mild RV dysfunction, moderate tricuspid regurgitation moderate pulmonic regurgitation and pulmonary hypertension in the range of 45-55 mmHg. Prior to this visit patient did not experience any cardiac symptoms. She was able to perform ADLs and light to moderate housework without cardiopulmonary limitations. Shortness of breath has improved now that she is on oxygen. She has had no recurrent hemoptysis. She denies chest pain, palpitations, edema, syncope, focal deficits, claudication, GI or symptoms. Allergies and medications reviewed. [facility] reviewed; pertinent history as mentioned HPI. Social history: One pack per day smoker, quit the day of admission. No alcohol. Family history: No premature coronary artery disease. DATA: Available records including laboratory studies reviewed. EKGs, telemetry and echocardiogram independently visualized. Consults Consult date: 11/15/18 Requesting physician: Eneida Sahu Review of Systems Review of Systems ROS: 10 point ROS was performed; all pertinent positives as mentioned in HPI, all others negative. [facility] Medical History Lung mass (Acute) Smoker (Acute) Atrial fibrillation (Chronic) COPD (chronic obstructive pulmonary disease) (Chronic) HTN (hypertension) (Chronic) Family History Father Hemochromatosis Cirrhosis due to hemochromatosis Diabetes Daughter Heart disease Social History Smoking and Tabacco status: Current every day alcohol intake: never substance use type: does not use Exam Narrative Exam Narrative: General: pleasant, no acute distress, wearing oxygen HEENT: Anicteric, mucus membranes moist Neck: Supple, normal JVP, brisk carotid upstrokes, no bruits Chest: Non-tender Lungs: Bronchial breath sounds and scattered expiratory wheezes throughout Cardiac: Tachycardic, irregular rhythm, normal S1S2, no murmurs Abdomen: Soft, non-tender, bowel sounds present Extremities: No clubbing, cyanosis or edema, equal pulses in all 4 extremities Skin: Warm and dry, no rashes Neuro: Alert and oriented x3, grossly intact Results Last Vital Signs Temp 36.5 C 11/15/18 07:34 Pulse 110 H 11/15/18 11:59 Resp 20 11/15/18 11:59 BP 141/72 H 11/15/18 11:59 Pulse Ox 88 L 11/15/18 11:59 Labs : 11/15/18 06:30 11/15/18 06:30 Laboratory Results - last 24 hr 11/15/18 11/15/18 06:30 06:30 WBC 10.80 RBC 4.90 Hgb 15.4 Hct 46.9 H MCV 95.7 H MCH 31.4 MCHC 32.8 RDW 14.9 H Plt Count 176 MPV 11.1 H Immature Gran % 1.5 Neutrophils % 87.6 Lymphocytes % 6.7 Monocytes % 3.8 Eosinophils % 0.2 Basophils % 0.2 Absolute Neutrophils 9.47 H Absolute Lymphocytes 0.72 L Absolute Monocytes 0.41 Absolute Eosinophils 0.02 Absolute Basophils 0.02 Sodium 141 Potassium 4.8 Chloride 97 L Carbon Dioxide 43.3 H Anion Gap 0.7 L BUN 31 H Creatinine 0.81 Estimated GFR/1.73 m2 >= 60.00 Glucose 149 H Calcium 9.2 Magnesium 2.4 Troponin I 0.02
--- NOTE | 2018-11-15 12:57 | CCONE_ITS ---
Date of service: 11/15/18 Time of Service: 12:52 Assessment and Plan (1) Atrial fibrillation: Current visit: Yes Status: Chronic Atrial fibrillation with heart rates in the 100's. Asymptomatic. Oral anti-correlation interrupted because of hemoptysis hence no role for orthodoxy of sinus rhythm at the moment. Reasonable blood pressure, no evidence of overt heart failure or angina. Intensify rate control to achieve resting heart rate of less than 110 beats per minutes ideally in the 70s-90s. Maximum daily dose metoprolol succinate 200 mg daily. Maximum daily dose diltiazem extended release 480 mg daily. Divided daily dose up into morning and evening. Resume oral anticoagulation once safe. History of Present Illness Chief Complaint: Afib with RVR Narrative: 73-year-old woman with ongoing tobacco use, COPD, carotid artery disease, hypertension, hypercholesterolemia and atrial fibrillation. Patient currently admitted because of hypoxic respiratory failure and hemoptysis. Found to have a lung mass concerning for cancer; outpatient pulmonary evaluation for biopsy has been arranged for. Patient is in atrial fibrillation with heart rates ranging from the 100's. She is not aware of the arrhythmia. She does not have documented weekly INRs for the last 4 weeks. Anti-coagulation has been stopped because of hemoptysis. Echocardiogram notable for an EF of 60-65%, diastolic dysfunction, mild mitral regurgitation, mild RV dysfunction, moderate tricuspid regurgitation moderate pulmonic regurgitation and pulmonary hypertension in the range of 45-55 mmHg. Prior to this visit patient did not experience any cardiac symptoms. She was able to perform ADLs and light to moderate housework without cardiopulmonary limitations. Shortness of breath has improved now that she is on oxygen. She has had no recurrent hemoptysis. She denies chest pain, palpitations, edema, syncope, focal deficits, claudication, GI or symptoms. Allergies and medications reviewed. [facility] reviewed; pertinent history as mentioned HPI. Social history: One pack per day smoker, quit the day of admission. No alcohol. Family history: No premature coronary artery disease. DATA: Available records including laboratory studies reviewed. EKGs, telemetry and echocardiogram independently visualized. Consults Consult date: 11/15/18 Requesting physician: Eneida Sahu Review of Systems Review of Systems ROS: 10 point ROS was performed; all pertinent positives as mentioned in HPI, all others negative. [facility] Medical History Lung mass (Acute) Smoker (Acute) Atrial fibrillation (Chronic) COPD (chronic obstructive pulmonary disease) (Chronic) HTN (hypertension) (Chronic) Family History Father Hemochromatosis Cirrhosis due to hemochromatosis Diabetes Daughter Heart disease Social History Smoking and Tabacco status: Current every day alcohol intake: never substance use type: does not use Exam Narrative Exam Narrative: General: pleasant, no acute distress, wearing oxygen HEENT: Anicteric, mucus membranes moist Neck: Supple, normal JVP, brisk carotid upstrokes, no bruits Chest: Non-tender Lungs: Bronchial breath sounds and scattered expiratory wheezes throughout Cardiac: Tachycardic, irregular rhythm, normal S1S2, no murmurs Abdomen: Soft, non-tender, bowel sounds present Extremities: No clubbing, cyanosis or edema, equal pulses in all 4 extremities Skin: Warm and dry, no rashes Neuro: Alert and oriented x3, grossly intact Results Last Vital Signs Temp 36.5 C 11/15/18 07:34 Pulse 110 H 11/15/18 11:59 Resp 20 11/15/18 11:59 BP 141/72 H 11/15/18 11:59 Pulse Ox 88 L 11/15/18 11:59 Labs : 11/15/18 06:30 11/15/18 06:30 Laboratory Results - last 24 hr 11/15/18 11/15/18 06:30 06:30 WBC 10.80 RBC 4.90 Hgb 15.4 Hct 46.9 H MCV 95.7 H MCH 31.4 MCHC 32.8 RDW 14.9 H Plt Count 176 MPV 11.1 H Immature Gran % 1.5 Neutrophils % 87.6 Lymphocytes % 6.7 Monocytes % 3.8 Eosinophils % 0.2 Basophils % 0.2 Absolute Neutrophils 9.47 H Absolute Lymphocytes 0.72 L Absolute Monocytes 0.41 Absolute Eosinophils 0.02 Absolute Basophils 0.02 Sodium 141 Potassium 4.8 Chloride 97 L Carbon Dioxide 43.3 H Anion Gap 0.7 L BUN 31 H Creatinine 0.81 Estimated GFR/1.73 m2 >= 60.00 Glucose 149 H Calcium 9.2 Magnesium 2.4 Troponin I 0.02
--- NOTE | 2018-11-15 14:17 | PDOC.CMPRO ---
- If Service Date Differs Date of service: 11/15/18 Time of Service: 14:17 Care Management Progress Note S/O: Siomara is sitting up in her chair when this automatic typewriter inspector visits this morning, she is receptive to discussion. Siomara continues on telemetry monitoring at this time. She will have a exercise oximetry done today. Siomara reports that she wants to return home, and that she is tired of being hospitalized at this time. A: 73 y/o female admitted 11/09/18 for Hempotysis, Lung Mass P: Siomara will return home when medically cleared with no anticipated services. She will F/U with PCP and pulmonology at [facility]. Family vs RCT transport at time of discharge.
[2018-11-15] MEDS: Atorvastatin 40 MG TAB 80 MG PO (19:28)
--- NOTE | 2018-11-15 19:54 | W.PM.PROGNOT ---
Date of Service Date of service: 11/15/18 Time of Service: 14:30 Assessment and Plan (1) Atrial fibrillation: Current visit: Yes Status: Chronic Rate finally controlled on toprol xl 100 mg PO daily and cardizem 60 mg PO Q 8 hrs Convert cardizem to long acting. Suspect patient can be discharged home tomorrow on these 2 medications without anticoagulation, should rate remain controlled. (2) CHF (congestive heart failure): Current visit: Yes Status: Chronic EF 60-65%, unclear if she has diastolic dysfunction; ?rate dependent Control rate; continue lasix. Qualifiers: Heart failure type: unspecified Heart failure chronicity: acute Qualified Code(s): I50.9 - Heart failure, unspecified (3) COPD (chronic obstructive pulmonary disease): Current visit: Yes Status: Chronic Improving. Hemoptysis has resolved. Continue steroid taper and continue to wean O2. Levofloxacin d/c'ed; make scheduled nebulizer treatments prn. Encourage smoking cessation. (4) Lung mass: Current visit: Yes Status: Acute Chest CT with Spiculated area measuring 3 cm in the right upper lobe suspicious for lung carcinoma and mildly enlarged bilateral hilar lymph nodes. Will need outpatient follow up - but would like to follow up with [facility] [place], which we will arrange. (5) Smoker: Current visit: Yes Status: Acute With approximately 50 pack year history of smoking and lung mass on CT. Encourage smoking cessation. Nicotine replacement with patch and nicotrol inhaler. (6) HTN (hypertension): Current visit: Yes Status: Chronic Amlodipine d/c'ed as we now need the BP to titrate lopressor and cardizem up. (7) Hypercholesteremia: Current visit: Yes Status: Acute Continue high dose Lipitor per home dose. Her medical record indicates that she may have had a cardiac cath in 2013 at [facility] [place]- she was transferred from the ED, there is no documentation on the chart in regard to the outcome. (8) DVT prophylaxis: Current visit: Yes Status: Acute SCDs, hold on chemical prophylaxis including coumadin in the setting of hemoptysis. (9) Discharge planning issues: Current visit: Yes Status: Acute She is a DNR/DNI. Will need outpatient follow up with pulmonary, oncology, cardiology, etc. Hoping to be able to discharge patient home tomorrow. Subjective Interval history since last seen: Feels better today. States that the cough is still productive, but very little comes out. She is no longer requiring oxygen. She is now rate controlled on telemetry. She denies dizziness, chest pain, shortness of breath, nausea, vomiting. She would really like to go home tomorrow. Exam Narrative Exam Narrative: General: Anxious elderly female, sitting in a chair, no dyspnea while talking to me HEENT: EOMI, MMM Heart: irregularly irregular rhythm, no m/r/g, rate is better controlled today Lungs: improved wheezing on expiration B GI: abdomen is firm; nontender, nondistended Extremities: Trace edema BLE's, improved; no clubbing/cyanosis, trace pedal pulses B Objective Objective Clinical Data: Abnormal lab results 11/15/18 11/15/18 Range/Units 06:30 06:30 Hct 46.9 H (36.0-46.0) % MCV 95.7 H (80-95) fL RDW 14.9 H (11.7-14.6) % MPV 11.1 H (8.0-11.0) fL Absolute Neutrophils 9.47 H (1.2-6.7) k/cumm Absolute Lymphocytes 0.72 L (1.2-3.4) k/cumm Chloride 97 L (98-107) mmol/L Carbon Dioxide 43.3 H (21.0-32.0) mmol/L Anion Gap 0.7 L (3-11) mmol/L BUN 31 H (7-18) mg/dL Glucose 149 H (70-100) mg/dL Vital Signs Temperature 36.7 C 11/15/18 19:00 Temperature Source Temporal Artery Scan 11/15/18 19:00 Pulse 82 11/15/18 19:00 Pulse Rhythm Irregular 11/15/18 07:40 Pulse 115 H 11/09/18 17:46 Respiratory Rate 20 11/15/18 19:00 Respiratory Effort Non-Labored 11/15/18 07:40 Respiratory Depth Normal 11/15/18 07:40 Respiratory Pattern Normal 11/15/18 07:40 Blood Pressure 116/66 11/15/18 19:00 Blood Pressure Mean 89 11/09/18 17:46 Blood Pressure Position Supine 11/09/18 12:01 Pulse Oximetry 93 L 11/15/18 19:00 Oxygen Delivery Method Room Air 11/15/18 19:00 Oxygen Flow Rate 0 11/15/18 19:00 Fraction of Inspired Oxygen (FIO2) 1 11/14/18 20:32 Pain Level 0 11/15/18 15:45 Comment 11/15/18 11:59 Intake & Output 11/14/18 11/15/18 11/15/18 23:59 11:59 23:59 Intake Total 1450 / 2260 1710 / 2960 1250 / 2960 Output Total 1400 / 2750 1700 / 2425 725 / 2425 Balance 50 / -490 10 / 535 525 / 535 Weight 63.8 kg Intake: IV 30 / 180 30 / 30 Oral 1420 / 2080 1680 / 2930 1250 / 2930 Output: Urine 1400 / 2750 1700 / 2425 725 / 2425 Other: Urine Color Yellow Yellow Yellow Urine Appearance Clear Clear Clear Urine Odor Normal Normal Voiding Methods Toilet Toilet Toilet Laboratory Results WBC 10.80 k/cumm (4.4-10.8) 11/15/18 06:30 RBC 4.90 m/cumm (4.00-5.20) 11/15/18 06:30 Hgb 15.4 g/dL (12.0-15.5) 11/15/18 06:30 Hct 46.9 % (36.0-46.0) H 11/15/18 06:30 MCV 95.7 fL (80-95) H 11/15/18 06:30 MCH 31.4 pg (27.0-33.0) 11/15/18 06:30 MCHC 32.8 g/dL (32.0-36.0) 11/15/18 06:30 RDW 14.9 % (11.7-14.6) H 11/15/18 06:30 Plt Count 176 x1000/uL (130-400) 11/15/18 06:30 MPV 11.1 fL (8.0-11.0) H 11/15/18 06:30 Immature Gran % 1.5 11/15/18 06:30 Neutrophils % 87.6 11/15/18 06:30 Lymphocytes % 6.7 11/15/18 06:30 Monocytes % 3.8 11/15/18 06:30 Eosinophils % 0.2 11/15/18 06:30 Basophils % 0.2 11/15/18 06:30 Absolute Neutrophils 9.47 k/cumm (1.2-6.7) H 11/15/18 06:30 Absolute Lymphocytes 0.72 k/cumm (1.2-3.4) L 11/15/18 06:30 Absolute Monocytes 0.41 k/cumm (0.11-0.7) 11/15/18 06:30 Absolute Eosinophils 0.02 k/cumm (0.0-0.7) 11/15/18 06:30 Absolute Basophils 0.02 k/cumm (0.0-0.2) 11/15/18 06:30 PT 17.1 sec (9.3-11.0) H D 11/12/18 06:40 INR 1.7 (0.9-1.1) H D 11/12/18 06:40 APTT 36.1 sec (21.0-31.4) H 11/09/18 12:10 Sodium 141 mmol/L (136-145) 11/15/18 06:30 Potassium 4.8 mmol/L (3.5-5.1) 11/15/18 06:30 Chloride 97 mmol/L (98-107) L 11/15/18 06:30 Carbon Dioxide 43.3 mmol/L (21.0-32.0) H 11/15/18 06:30 Anion Gap 0.7 mmol/L (3-11) L 11/15/18 06:30 BUN 31 mg/dL (7-18) H 11/15/18 06:30 Creatinine 0.81 mg/dL (0.55-1.02) 11/15/18 06:30 Estimated GFR/1.73 m2 >= 60.00 (mL/min/1.73m2) 11/15/18 06:30 Glucose 149 mg/dL (70-100) H 11/15/18 06:30 Calcium 9.2 mg/dL (8.5-10.1) 11/15/18 06:30 Magnesium 2.4 mg/dL (1.8-2.4) 11/15/18 06:30 Total Bilirubin 0.4 mg/dL (0.2-1.0) 11/09/18 12:35 AST 19 U/L (15-37) 11/09/18 12:35 ALT 17 U/L (12-78) 11/09/18 12:35 Alkaline Phosphatase 69 U/L (46-116) 11/09/18 12:35 Troponin I 0.02 ng/mL (0.00-0.06) 11/15/18 06:30 NT-Pro-B Natriuret Pep 4587 pg/mL (-299) H 11/12/18 06:40 Total Protein 6.4 g/dL (6.4-8.2) 11/09/18 12:35 Albumin 2.9 g/dL (3.4-5.0) L 11/09/18 12:35 Triglycerides 83 mg/dL (30-150) 11/13/18 06:45 Total Cholesterol 124 mg/dL (50-200) 11/13/18 06:45 LDL Cholesterol Direct 66 mg/dL (<100) 11/13/18 06:45 HDL Cholesterol 42 mg/dL (40-60) 11/13/18 06:45
[2018-11-16] VITALS (8 sets, daily range): BP systolic 100–120; BP diastolic 58–64; PULSE 66–85; RESP 16–20; TEMP 35–36.5; O2SAT 87–93
[2018-11-16] MEDS: Pantoprazole 40 MG TABCR PO (06:37)
[2018-11-16] MEDS: Normal Saline Flush 10 ML SYR IVP (07:23)
[2018-11-16 07:51] LABS: HCT 50.8 % (36.0-46.0); HGB 16.7 g/dL (12.0-15.5); Mean Corp. HGB Concentration 32.9 g/dL (32.0-36.0); Mean Corpuscular Hemoglobin 31.1 pg (27.0-33.0); Mean Corpuscular Volume 94.6 fL (80-95); Mean Platelet Volume 11.3 fL (8.0-11.0); Platelet Count 235 x1000/uL (130-400); RBC 5.37 m/cumm (4.00-5.20); RBC Distribution Width 14.8 % (11.7-14.6); White Blood Cell Count 15.02 k/cumm (4.4-10.8)
[2018-11-16 08:00] LABS: Anion Gap 1.4 mmol/L (3-11); BUN 30 mg/dL (7-18); CO2 39.6 mmol/L (21.0-32.0); CREATININE 0.77 mg/dL (0.55-1.02); Chloride 98 mmol/L (98-107); Glucose 123 mg/dL (70-100); Magnesium 2.4 mg/dL (1.8-2.4); Potassium 4.6 mmol/L (3.5-5.1); Sodium 139 mmol/L (136-145)
[2018-11-16 08:26] LABS: Absolute Neutrophil Count 13.22 k/cumm (1.2-6.7)
[2018-11-16 08:27] LABS: Absolute Lymphocyte Count 1.05 k/cumm (1.2-3.4); Absolute Monocyte Count 0.75 k/cumm (0.11-0.7); Atypical Lymphocytes % 1; Diff Comment Manual Differential; RBC Morphology Normal
[2018-11-16] MEDS: predniSONE 20 MG TAB 40 MG PO (08:44)
[2018-11-16] MEDS: Furosemide 20 MG TAB PO (08:44)
[2018-11-16] MEDS: guaiFENesin 600 MG TABCR PO (08:44)
[2018-11-16] MEDS: Metoprolol CR 100 MG TABCR PO (08:45)
--- NOTE | 2018-11-16 11:39 | DI.RAD_ITS ---
SYMPTOMS/DIAGNOSIS: WORSENING LEUKOCYTOSIS, F/U PNEUMONIA PORTABLE AP CHEST: Comparison 11/14/18. Comparison CT scan is 11/09/18. The opacity seen in the right upper lobe appears stable consistent with a spiculated mass seen on the CT scan from 11/09/18. No infiltrates, effusions or pneumothoraces are identified. The heart is mildly enlarged and unchanged. IMPRESSION: Stable right upper lobe opacity seen on chest x-ray and CT scans from October and November 2018. No new infiltrates, effusions or pneumothoraces are identified.
--- NOTE | 2018-11-16 13:03 | PDOC.CMDIS ---
- If Service Date Differs Date of service: 11/16/18 Time of Service: 13:03 LACE Index Scoring Tool - Questions: Length of Stay (in days): 7 - 13 Acuity (Admit via E.D.?): Yes Comorbidities: Chronic Pulmonary Disease, Any Tumor E.D. Visits: 1 - Answers: Total Score: 14 Risk of Readmission: High Risk Care Management Discharge Reason for Hospitalization: COPD, Lung Mass Discharge Plan: Siomara will return home today with no services. She will F/U with PCP and pointer helper outpatient. Siomara's family to transport today. Patient/Family Education Needs: Review DC instructions, any limitations, and ongoing DC planning discussion. Discuss 'Ask Me Three'
--- NOTE | 2018-11-16 13:08 | CMDISCH_ITS ---
- If Service Date Differs Date of service: 11/16/18 Time of Service: 13:03 LACE Index Scoring Tool - Questions: Length of Stay (in days): 7 - 13 Acuity (Admit via E.D.?): Yes Comorbidities: Chronic Pulmonary Disease, Any Tumor E.D. Visits: 1 - Answers: Total Score: 14 Risk of Readmission: High Risk Care Management Discharge Reason for Hospitalization: COPD, Lung Mass Discharge Plan: Siomara will return home today with no services. She will F/U with PCP and ground equipment mechanic outpatient. Siomara's family to transport today. Patient/Family Education Needs: Review DC instructions, any limitations, and ongoing DC planning discussion. Discuss 'Ask Me Three'
[2018-11-16 13:28] LABS: Bilirubin Negative (Negative); Blood Negative (Negative); Clarity Clear; Glucose Negative (Negative); Ketones Negative (Negative); Leukocyte Esterase Negative (Negative); Nitrite Negative (Negative); Specific Gravity <= 1.005 (1.005-1.025); Urobilinogen 0.2 EU/dL (Up TO 0.2); pH 5.5 (5-8)
--- NOTE | 2018-11-16 14:49 | W.PM.DS.N ---
Date of service: 11/16/18 Time of Service: 14:50 DS: Diagnosis Discharge Diagnosis (1) Atrial fibrillation: Status: Chronic (2) CHF (congestive heart failure): Status: Chronic (3) COPD (chronic obstructive pulmonary disease): Status: Chronic (4) Lung mass: Status: Acute (5) Smoker: Status: Acute (6) HTN (hypertension): Status: Chronic (7) Hypercholesteremia: Status: Acute (8) Hemoptysis: Status: Resolved Discharge Plan Disposition Patient Disposition: HOME Condition: Stable Discharge Details Reason For Visit: HEMOPTYSIS, LUNG MASS, HYPOXIA Admit Date/Time: 11/09/18 16:30 Admit Provider: Adam Wesley Attending Provider: Adam Wesley Primary Care Provider: Sherwin Ceja [facility] Course Hospital Course: Ms Quinones is 73 year old female with PMHx of COPD, Afib previously on coumadin, hypertension, hypercholesterolemia, admitted to [facility] on 11/09/18 with hemoptysis, acute exacerbation of COPD and a new diagnosis of 3 cm RUL lung mass. She did have hypoxia, which resolved by the time of discharge, and patient's ambulatory pulse oximetry remains >90% on room air. There was no evidence of pneumonia on her lung imagine (either CXR or CT of the chest). Hemoptysis was self-limited and resolved with cessation of coumadin. Her Afib did go into rapid ventricular response and had features of Aflutter as well. It was eventually controlled with combination of metoprolol and cardizem, long acting version of which she was able to tolerate prior to discharge. She is currently on toprol XL 100 mg and cardizem CD 180 mg. She did go into CHF on this admission, likely rate dependent, as her EF is 60-65% on echo and it is unclear if she has a diastolic dysfunction. She was diuresed and is euvolemic at the time of discharge, but will receive a prescription for prn lasix. Her anticoagulation remains on hold. She finished her antibiotics and will finish her steroid taper at home. She will need to follow up with pulmonology at [facility] [place] for further workup of her lung mass. (Initially, the patient was pre-accepted to [facility] pending bed availability, but as her condition improved, this transfer was cancelled, and she would like to pursue her workup at [facility] [place] at this time). She is medically stable for discharge with HR in the 70-80 range, continued mild rhonchi, counseling on tobacco cessation. She is to follow up with her PCP as well as with cardiology. Home Meds and New Rx's Prescriptions: New diltiazem HCl 180 mg Capsule,Extended Release 24hr 180 mg PO DAILY Qty: 30 RF: 0 furosemide 20 mg Tablet 20 mg PO Q OTHER DAY PRN (Reason: edema) Qty: 10 RF: 0 guaifenesin [Mucinex] 600 mg Tablet Extended Release 12hr 600 mg PO BID PRN PRN (Reason: cough) Qty: 30 RF: 0 prednisone 20 mg Tablet See Rx Instructions .ROUTE .COMPLEX Qty: 14 RF: 0 metoprolol succinate 100 mg Tablet Extended Release 24 Hr 100 mg PO DAILY Qty: 30 RF: 0 pantoprazole 40 mg Tablet,Delayed Release (Dr/Ec) 40 mg PO DAILY@0730 Qty: 30 RF: 0 hydroxyzine HCl 25 mg Tablet 25 mg PO QID PRN PRN (Reason: anxiety) Qty: 30 RF: 0 ipratropium-albuterol 0.5 mg-3 mg(2.5 mg base)/3 mL Solution For Nebulization 3 ml UPD Q6H PRN PRN (Reason: shortness of breath or wheezing) Qty: 180 RF: 0 Continued atorvastatin [Lipitor] 80 mg Tablet 80 mg PO QPM RF: 0 cromolyn 4 % Drops 1 drp OPHTHALMIC (EYE) QID PRNRF: 0 amlodipine 2.5 mg Tablet 2.5 mg PO DAILY RF: 0 warfarin 5 mg Tablet 5 mg PO DAILY RF: 0 albuterol sulfate [ProAir HFA] 90 mcg/actuation Hfa Aerosol Inhaler 2 puff INHALATION QID PRNRF: 0 Discontinued warfarin [Coumadin] 2 mg Tablet 2 mg PO DAILY RF: 0 Discharge Instructions Instructions: Atrial Fibrillation (DC), Chronic Bronchitis (DC), Hemoptysis (GEN) Additional Instructions: Finish your steroid taper as prescribed. Return to the hospital with any fever, any more bleeding, chest pain, shortness of breath. Do not take NSAIDs (advil, aleve, aspirin). Do not take warfarin/coumadin. Follow up with PCP, pulmonary, and cardiology. Stand Alone Forms: Nursing Discharge Form Referrals: PULMONOLOGY,[facility] [place] [OTHER] - Jonathon Barron MD [MD CONSULTING PHYSICIAN] - Sherwin Ceja [Primary Care Provider] - 12/01/18 2:30 pm Activity:: Activity as Tolerated Equipment/Supplies:: nebulizer machine Diet:: As Tolerated Exam Narrative Exam Narrative: General: Anxious elderly female, sitting in a chair, no dyspnea while talking to me HEENT: EOMI, MMM Heart: irregularly irregular rhythm, no m/r/g Lungs: improved wheezing on expiration B GI: abdomen is firm; nontender, nondistended Extremities: No BLE's, improved; no clubbing/cyanosis, trace pedal pulses B DS: Data Vitals/I&O Vitals and I&O: Vital Signs Temperature 36.4 C L 11/16/18 11:12 Temperature Source Tympanic 11/16/18 11:12 Pulse 67 11/16/18 11:12 Pulse Rhythm Irregular 11/16/18 07:30 Pulse 115 H 11/09/18 17:46 Respiratory Rate 20 11/16/18 11:12 Respiratory Effort 11/16/18 07:30 Respiratory Depth Shallow 11/16/18 07:30 Respiratory Pattern Normal 11/16/18 07:30 Blood Pressure 118/58 L 11/16/18 11:12 Blood Pressure Mean 89 11/09/18 17:46 Blood Pressure Position Supine 11/09/18 12:01 Pulse Oximetry 92 L 11/16/18 11:12 Oxygen Delivery Method Room Air 11/16/18 11:12 Oxygen Flow Rate 0 11/16/18 11:12 Fraction of Inspired Oxygen (FIO2) 1 11/14/18 20:32 Pain Level 0 11/16/18 03:40 Comment 11/16/18 03:40 Intake & Output 11/15/18 11/16/18 11/16/18 23:59 11:59 23:59 Intake Total 1250 / 2960 900 / 1000 100 / 1000 Output Total 725 / 2425 550 / 550 Balance 525 / 535 350 / 450 100 / 450 Weight 64.9 kg Intake: Oral 1250 / 2930 900 / 1000 100 / 1000 Output: Urine 725 / 2425 550 / 550 Other: Urine Color Yellow Yellow Urine Appearance Clear Clear Urine Odor Normal Voiding Methods Toilet Toilet Completed studies during hospitalization [Text1]: CTA chest 11/09/18: Spiculated area measuring 3 cm in the right upper lobe suspicious for lung carcinoma. Mildly enlarged bilateral hilar lymph nodes are seen. Echo 11/13/18: 1. Left ventricle: The cavity size was normal. Systolic function was normal. The estimated ejection fraction was 60-65%. The study was not technically sufficient to allow evaluation of LV diastolic dysfunction due to atrial fibrillation. There was no evidence of elevated ventricular filling pressure by Doppler parameters. 2. Mitral valve: There was mild regurgitation. 3. Left atrium: The atrium was severely dilated. 4. Right ventricle: The cavity size was mildly dilated. Systolic function was normal. 5. Right atrium: The atrium was severely dilated. 6. Atrial septum: No defect or patent foramen ovale was identified. 7. Tricuspid valve: There was moderate regurgitation. 8. Pulmonic valve: There was moderate regurgitation. 9. Pulmonary arteries: Pulmonary systolic pressure was in the range of 45mm Hg to 55mm Hg. 10. Inferior vena cava: The vessel was patent and normal in size. The respirophasic diameter changes were in the normal range (greater than or equal to 50%), consistent with normal central venous pressure. CXR 11/14/18, 11/16/18: Right upper lobe mass versus infiltrate, unchanged. No new abnormalities. Labs on day of discharge: Labs from last 24 hours 11/16/18 11/16/18 11/16/18 13:15 07:06 07:06 WBC 15.02 H D RBC 5.37 H Hgb 16.7 H Hct 50.8 H MCV 94.6 MCH 31.1 MCHC 32.9 RDW 14.8 H Plt Count 235 MPV 11.3 H Immature Gran % 0.0 Neutrophils % 86.0 Band Neutrophils % 2.0 Lymphocytes % 6.0 Atypical Lymphs % 1 Monocytes % 5.0 Eosinophils % 0.0 Basophils % 0.0 Absolute Neutrophils 13.22 H Absolute Lymphocytes 1.05 L Absolute Monocytes 0.75 H Absolute Eosinophils 0.00 Absolute Basophils 0.00 Differential Comment Manual differential RBC Morphology Normal Sodium 139 Potassium 4.6 Chloride 98 Carbon Dioxide 39.6 H Anion Gap 1.4 L BUN 30 H Creatinine 0.77 Estimated GFR/1.73 m2 >= 60.00 Glucose 123 H Calcium 9.0 Magnesium 2.4 Urine Color Yellow Urine Clarity Clear Urine pH 5.5 Ur Specific [place] <= 1.005 Urine Protein Negative Urine Ketones Negative Urine Blood Negative Urine Nitrite Negative Urine Bilirubin Negative Urine Urobilinogen 0.2 Ur Leukocyte Esterase Negative Urine Glucose Negative [facility] Medical History Lung mass (Acute) Smoker (Acute) Atrial fibrillation (Chronic) COPD (chronic obstructive pulmonary disease) (Chronic) HTN (hypertension) (Chronic) Family History Father Hemochromatosis Cirrhosis due to hemochromatosis Diabetes Daughter Heart disease Social History Smoking and Tabacco status: Current every day alcohol intake: never substance use type: does not use
--- NOTE | 2018-11-16 14:55 | DSE_ITS ---
Date of service: 11/16/18 Time of Service: 14:50 DS: Diagnosis Discharge Diagnosis (1) Atrial fibrillation: Status: Chronic (2) CHF (congestive heart failure): Status: Chronic (3) COPD (chronic obstructive pulmonary disease): Status: Chronic (4) Lung mass: Status: Acute (5) Smoker: Status: Acute (6) HTN (hypertension): Status: Chronic (7) Hypercholesteremia: Status: Acute (8) Hemoptysis: Status: Resolved Discharge Plan Disposition Patient Disposition: HOME Condition: Stable Discharge Details Reason For Visit: HEMOPTYSIS, LUNG MASS, HYPOXIA Admit Date/Time: 11/09/18 16:30 Admit Provider: Adam Wesley Attending Provider: Adam Wesley Primary Care Provider: Sherwin Ceja [facility] Hospital Course Hospital Course: Ms Quinones is 73 year old female with PMHx of COPD, Afib previously on coumadin, hypertension, hypercholesterolemia, admitted to [facility] on 11/09/18 with hemoptysis, acute exacerbation of COPD and a new diagnosis of 3 cm RUL lung mass. She did have hypoxia, which resolved by the time of discharge, and patient's ambulatory pulse oximetry remains >90% on room air. There was no evidence of pneumonia on her lung imagine (either CXR or CT of the chest). Hemoptysis was self-limited and resolved with cessation of coumadin. Her Afib did go into rapid ventricular response and had features of Aflutter as well. It was eventually controlled with combination of metoprolol and cardizem, long acting version of which she was able to tolerate prior to discharge. She is currently on toprol XL 100 mg and cardizem CD 180 mg. She did go into CHF on this admission, likely rate dependent, as her EF is 60-65% on echo and it is unclear if she has a diastolic dysfunction. She was diuresed and is euvolemic at the time of discharge, but will receive a prescription for prn lasix. Her anticoagulation remains on hold. She finished her antibiotics and will finish her steroid taper at home. She will need to follow up with pulmonology at [facility] for further workup of her lung mass. (Initially, the patient was pre-accepted to [facility] pending bed availability, but as her condition improved, this transfer was cancelled, and she would like to pursue her workup at [facility] at this time). She is medically stable for discharge with HR in the 70-80 range, continued mild rhonchi, counseling on tobacco cessation. She is to follow up with her PCP as well as with cardiology. Home Meds and New Rx's Prescriptions: New diltiazem HCl 180 mg Capsule,Extended Release 24hr 180 mg PO DAILY Qty: 30 RF: 0 furosemide 20 mg Tablet 20 mg PO Q OTHER DAY PRN (Reason: edema) Qty: 10 RF: 0 guaifenesin [Mucinex] 600 mg Tablet Extended Release 12hr 600 mg PO BID PRN PRN (Reason: cough) Qty: 30 RF: 0 prednisone 20 mg Tablet See Rx Instructions .ROUTE .COMPLEX Qty: 14 RF: 0 metoprolol succinate 100 mg Tablet Extended Release 24 Hr 100 mg PO DAILY Qty: 30 RF: 0 pantoprazole 40 mg Tablet,Delayed Release (Dr/Ec) 40 mg PO DAILY@0730 Qty: 30 RF: 0 hydroxyzine HCl 25 mg Tablet 25 mg PO QID PRN PRN (Reason: anxiety) Qty: 30 RF: 0 ipratropium-albuterol 0.5 mg-3 mg(2.5 mg base)/3 mL Solution For Nebulization 3 ml UPD Q6H PRN PRN (Reason: shortness of breath or wheezing) Qty: 180 RF: 0 Continued atorvastatin [Lipitor] 80 mg Tablet 80 mg PO QPM RF: 0 cromolyn 4 % Drops 1 drp OPHTHALMIC (EYE) QID PRNRF: 0 amlodipine 2.5 mg Tablet 2.5 mg PO DAILY RF: 0 warfarin 5 mg Tablet 5 mg PO DAILY RF: 0 albuterol sulfate [ProAir HFA] 90 mcg/actuation Hfa Aerosol Inhaler 2 puff INHALATION QID PRNRF: 0 Discontinued warfarin [Coumadin] 2 mg Tablet 2 mg PO DAILY RF: 0 Discharge Instructions Instructions: Atrial Fibrillation (DC), Chronic Bronchitis (DC), Hemoptysis (GEN) Additional Instructions: Finish your steroid taper as prescribed. Return to the hospital with any fever, any more bleeding, chest pain, shortness of breath. Do not take NSAIDs (advil, aleve, aspirin). Do not take warfarin/coumadin. Follow up with PCP, pulmonary, and cardiology. Stand Alone Forms: Nursing Discharge Form Referrals: PULMONOLOGY,[facility] [OTHER] - Jonathon Barron MD [MD CONSULTING PHYSICIAN] - Sherwin Ceja [Primary Care Provider] - 12/01/18 2:30 pm Activity:: Activity as Tolerated Equipment/Supplies:: nebulizer machine Diet:: As Tolerated Exam Narrative Exam Narrative: General: Anxious elderly female, sitting in a chair, no dyspnea while talking to me HEENT: EOMI, MMM Heart: irregularly irregular rhythm, no m/r/g Lungs: improved wheezing on expiration B GI: abdomen is firm; nontender, nondistended Extremities: No BLE's, improved; no clubbing/cyanosis, trace pedal pulses B DS: Data Vitals/I&O Vitals and I&O: Vital Signs Temperature 36.4 C L 11/16/18 11:12 Temperature Source Tympanic 11/16/18 11:12 Pulse 67 11/16/18 11:12 Pulse Rhythm Irregular 11/16/18 07:30 Pulse 115 H 11/09/18 17:46 Respiratory Rate 20 11/16/18 11:12 Respiratory Effort 11/16/18 07:30 Respiratory Depth Shallow 11/16/18 07:30 Respiratory Pattern Normal 11/16/18 07:30 Blood Pressure 118/58 L 11/16/18 11:12 Blood Pressure Mean 89 11/09/18 17:46 Blood Pressure Position Supine 11/09/18 12:01 Pulse Oximetry 92 L 11/16/18 11:12 Oxygen Delivery Method Room Air 11/16/18 11:12 Oxygen Flow Rate 0 11/16/18 11:12 Fraction of Inspired Oxygen (FIO2) 1 11/14/18 20:32 Pain Level 0 11/16/18 03:40 Comment 11/16/18 03:40 Intake & Output 11/15/18 11/16/18 11/16/18 23:59 11:59 23:59 Intake Total 1250 / 2960 900 / 1000 100 / 1000 Output Total 725 / 2425 550 / 550 Balance 525 / 535 350 / 450 100 / 450 Weight 64.9 kg Intake: Oral 1250 / 2930 900 / 1000 100 / 1000 Output: Urine 725 / 2425 550 / 550 Other: Urine Color Yellow Yellow Urine Appearance Clear Clear Urine Odor Normal Voiding Methods Toilet Toilet Completed studies during hospitalization [Text1]: CTA chest 11/09/18: Spiculated area measuring 3 cm in the right upper lobe suspicious for lung carcinoma. Mildly enlarged bilateral hilar lymph nodes are seen. Echo 11/13/18: 1. Left ventricle: The cavity size was normal. Systolic function was normal. The estimated ejection fraction was 60-65%. The study was not technically sufficient to allow evaluation of LV diastolic dysfunction due to atrial fibrillation. There was no evidence of elevated ventricular filling pressure by Doppler parameters. 2. Mitral valve: There was mild regurgitation. 3. Left atrium: The atrium was severely dilated. 4. Right ventricle: The cavity size was mildly dilated. Systolic function was normal. 5. Right atrium: The atrium was severely dilated. 6. Atrial septum: No defect or patent foramen ovale was identified. 7. Tricuspid valve: There was moderate regurgitation. 8. Pulmonic valve: There was moderate regurgitation. 9. Pulmonary arteries: Pulmonary systolic pressure was in the range of 45mm Hg to 55mm Hg. 10. Inferior vena cava: The vessel was patent and normal in size. The respirophasic diameter changes were in the normal range (greater than or equal to 50%), consistent with normal central venous pressure. CXR 11/14/18, 11/16/18: Right upper lobe mass versus infiltrate, unchanged. No new abnormalities. Labs on day of discharge: Labs from last 24 hours 11/16/18 11/16/18 11/16/18 13:15 07:06 07:06 WBC 15.02 H D RBC 5.37 H Hgb 16.7 H Hct 50.8 H MCV 94.6 MCH 31.1 MCHC 32.9 RDW 14.8 H Plt Count 235 MPV 11.3 H Immature Gran % 0.0 Neutrophils % 86.0 Band Neutrophils % 2.0 Lymphocytes % 6.0 Atypical Lymphs % 1 Monocytes % 5.0 Eosinophils % 0.0 Basophils % 0.0 Absolute Neutrophils 13.22 H Absolute Lymphocytes 1.05 L Absolute Monocytes 0.75 H Absolute Eosinophils 0.00 Absolute Basophils 0.00 Differential Comment Manual differential RBC Morphology Normal Sodium 139 Potassium 4.6 Chloride 98 Carbon Dioxide 39.6 H Anion Gap 1.4 L BUN 30 H Creatinine 0.77 Estimated GFR/1.73 m2 >= 60.00 Glucose 123 H Calcium 9.0 Magnesium 2.4 Urine Color Yellow Urine Clarity Clear Urine pH 5.5 Ur Specific Platter <= 1.005 Urine Protein Negative Urine Ketones Negative Urine Blood Negative Urine Nitrite Negative Urine Bilirubin Negative Urine Urobilinogen 0.2 Ur Leukocyte Esterase Negative Urine Glucose Negative [facility] Medical History Lung mass (Acute) Smoker (Acute) Atrial fibrillation (Chronic) COPD (chronic obstructive pulmonary disease) (Chronic) HTN (hypertension) (Chronic) Family History Father Hemochromatosis Cirrhosis due to hemochromatosis Diabetes Daughter Heart disease Social History Smoking and Tabacco status: Current every day alcohol intake: never substance use type: does not use
== END 2018-11-16 16:25 | disposition home or self-care (01) | DRG 190 ==
LOC: ER 17:08 → MS 18:02
PROVIDERS: Nurse Practitioner; Nurse Practitioner Acute Care; Admitting Provider Internal Medicine; Emergency Provider Student in an Organized Health Care Education/Training Program; PCP Family Medicine; Visit Provider Internal Medicine
DX: J44.1 Chronic obstructive pulmonary disease with (acute) exacerbation (principal); I50.33 Acute on chronic diastolic (congestive) heart failure; R04.2 Hemoptysis; D68.32 Hemorrhagic disorder due to extrinsic circulating anticoagulants; R91.8 Other nonspecific abnormal finding of lung field; T45.515A Adverse effect of anticoagulants, initial encounter; Z79.01 Long term (current) use of anticoagulants; I48.91 Unspecified atrial fibrillation; F17.210 Nicotine dependence, cigarettes, uncomplicated; R59.0 Localized enlarged lymph nodes; E78.00 Pure hypercholesterolemia, unspecified; I08.3 Combined rheumatic disorders of mitral, aortic and tricuspid valves
CPT/HCPCS: 36415; 71275; 80048; 80053; 80061; 83721; 93005; 93306; 94618; 94640; 96361; 96374; 99222; 99223; 99232; 99233; 99239; 99254; 99285; 71045; 81003; 83735; 83880; 84484; 85025; 85610; 85730; 87070; 87205; 93010; J1941; J1956; J2930; J3490; J7512; J7620

== ENCOUNTER → 2018-11-15 12:28 | Outpatient (BNVA) | payer OTHER, SELFPAY | PROVIDERS: PCP Family Medicine; Visit Provider Student in an Organized Health Care Education/Training Program | DX: R69 Illness, unspecified (principal) ==

== ENCOUNTER 2018-12-07 00:31 | Outpatient (CLI) | payer OTHER, SELFPAY ==
--- NOTE | 2018-12-07 14:54 | DI.CT_ITS ---
SYMPTOM/DIAGNOSIS: F93.89, F/U ABNL FINDINGS ON XRAY, SPICULATED AREA MEASURING [address] CM[address] RUL CHEST CT: CT examination of the chest was performed without contrast administration. Images obtained through the upper abdomen show somewhat nodular appearance of the left adrenal gland which is nonspecific and probably unchanged from previous CT of 11/09/18. The previously described spiculated 3 cm. right apical mass identified on the previous examination is again seen and is grossly unchanged in appearance in comparison with the previous study. There is a new right pleural effusion and tiny left pleural effusion is present as well. There are new areas of poorly defined nodularity seen in the left lower lobe posteriorly, the largest measuring up to about 6 mm. in diameter and these were not present on previous examination. Additionally, lingular, poorly defined area of nodularity is present which was not present on the previous examination. No new right lung mass is seen. Right hilar node measures about 17 mm. in diameter and was questionably present on the previous examination. Aortopulmonary window yue enlargement is more easily seen than on the previous examination although this may have been present previously. Pretracheal node measures roughly 19 mm. in greatest diameter and appears to have increased in size since the previous examination. There is sclerosis of the medial end of the right clavicle which is a nonspecific finding and is probably old, clavicle xrays of 02/2014 showed a similar appearance. Thoracic spine has somewhat mottled bony appearance, the possibility of metastatic disease not excluded on the basis of this examination, you may wish to consider obtaining a bone scan or thoracic spine MRI for further evaluation. No gross supraclavicular or axillary adenopathy identified. Visualized portions of the liver, spleen and pancreas are unremarkable. Heterogeneous appearance of the thyroid noted consistent with multi nodular goiter. CONCLUSION: 1. No gross interval change in size of approximately 3 cm. spiculated, irregular right apical lung mass. 2. New bilateral pleural effusions, right greater than left. 3. Multiple new intrapulmonary nodules in the left lung. 4. Apparent interval increase in mediastinal adenopathy as described.
== END 2018-12-07 00:51 ==
PROVIDERS: PCP Family Medicine; Visit Provider Internal Medicine
DX: R91.1 Solitary pulmonary nodule (principal); J90 Pleural effusion, not elsewhere classified
CPT/HCPCS: 71250

== ENCOUNTER 2018-12-08 14:22 | Outpatient (CLI) | payer OTHER, SELFPAY ==
[2018-12-08 15:07] LABS: Abs Immature Grans 0.04 k/cumm (0.0-0.09); Absolute Basophil Count 0.02 k/cumm (0.0-0.2); Absolute Eosinophil Count 0.15 k/cumm (0.0-0.7); Absolute Monocyte Count 0.59 k/cumm (0.11-0.7); Absolute Neutrophil Count 3.24 k/cumm (1.2-6.7); Basophils % 0.3; Eosinophils % 2.5; HCT 43.5 % (36.0-46.0); HGB 14.2 g/dL (12.0-15.5); Immature Grans % 0.7; Mean Corp. HGB Concentration 32.6 g/dL (32.0-36.0); Mean Corpuscular Hemoglobin 31.5 pg (27.0-33.0); Mean Corpuscular Volume 96.5 fL (80-95); Mean Platelet Volume 9.6 fL (8.0-11.0); Monocytes % 9.9; Neutrophils % 54.6; Platelet Count 301 x1000/uL (130-400); RBC 4.51 m/cumm (4.00-5.20); RBC Distribution Width 15.4 % (11.7-14.6); White Blood Cell Count 5.94 k/cumm (4.4-10.8)
[2018-12-08 15:17] LABS: Prothrombin Time 9.9 sec (9.3-11.0)
[2018-12-08 15:58] LABS: CREATININE 0.64 mg/dL (0.55-1.02)
== END 2018-12-08 14:42 ==
PROVIDERS: PCP Family Medicine; Visit Provider Internal Medicine
DX: R93.89 Abnormal findings on diagnostic imaging of other specified body structures (principal)
CPT/HCPCS: 36415; 82565; 85025; 85610

== ENCOUNTER → 2018-12-13 13:43 | Outpatient (BNVA) | payer OTHER, SELFPAY | PROVIDERS: PCP Family Medicine; Visit Provider Student in an Organized Health Care Education/Training Program | DX: R69 Illness, unspecified (principal) ==

== ENCOUNTER 2018-12-13 13:51 | Outpatient (CLI) | payer OTHER, SELFPAY | END 2018-12-13 14:11 | PROVIDERS: PCP Family Medicine; Visit Provider Student in an Organized Health Care Education/Training Program | DX: I48.91 Unspecified atrial fibrillation (principal); E78.00 Pure hypercholesterolemia, unspecified; I11.0 Hypertensive heart disease with heart failure; I40.9 Acute myocarditis, unspecified; I65.23 Occlusion and stenosis of bilateral carotid arteries; I27.20 Pulmonary hypertension, unspecified | CPT/HCPCS: 99204; 99214; 93005; 93010 ==

== ENCOUNTER 2019-01-09 00:37 | Outpatient (CLI) | payer OTHER, SELFPAY ==
[2019-01-09] MEDS: Gadoterate meglumine 20 ML VIAL 13 ML IVP (09:46)
[2019-01-09] MEDS: Normal Saline Flush 10 ML SYR IVP (09:47)
--- NOTE | 2019-01-09 10:15 | DI.MRI_ITS ---
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 On the FLAIR and T 2 weighted images, there are several scattered tiny foci of hyperintense T 2 signal within the white matter. These areas show no enhancement. These likely reflect small vessel ischemic disease. The ventricles and sulci are consistent with the patient's age. There is no acute midline shift or mass effect. The diffusion weighted images have a normal appearance. No intracranial hemorrhage is present. No intracranial mass or enhancing lesion is identified. No mass or abnormal enhancement is seen in the region of the internal auditory canals or cerebellar pontine angles. There is a normal flow void in the [place] of Self. The pituitary gland appears grossly unremarkable. The visualized paranasal sinuses are clear. IMPRESSION: 1. No evidence of an intracranial mass or enhancing lesion to suggest intracranial metastatic disease. 2. No evidence of an acute infarct. 3. Foci of hyperintense signal seen within the white matter most likely reflecting small vessel ischemic disease.
== END 2019-01-09 00:57 ==
PROVIDERS: PCP Family Medicine; Visit Provider Internal Medicine
DX: C34.90 Malignant neoplasm of unspecified part of unspecified bronchus or lung (principal); R42 Dizziness and giddiness; R51 Headache; I67.9 Cerebrovascular disease, unspecified
CPT/HCPCS: 70553

== ENCOUNTER → 2019-03-14 11:37 | Outpatient (BNVA) | payer OTHER, SELFPAY | PROVIDERS: PCP Family Medicine; Visit Provider Student in an Organized Health Care Education/Training Program | DX: I48.2 Chronic atrial fibrillation (principal); E78.00 Pure hypercholesterolemia, unspecified; I11.0 Hypertensive heart disease with heart failure; I50.32 Chronic diastolic (congestive) heart failure; I77.1 Stricture of artery; J44.9 Chronic obstructive pulmonary disease, unspecified; F17.210 Nicotine dependence, cigarettes, uncomplicated | CPT/HCPCS: 99215 ==

== ENCOUNTER 2019-05-31 00:24 | Outpatient (CLI) | payer OTHER, SELFPAY ==
[2019-05-31 13:08] LABS: CREATININE 0.82 mg/dL (0.55-1.02)
[2019-05-31] MEDS: Omnipaque 350 MG/ML 100 ML BTL IJ (13:38)
--- NOTE | 2019-05-31 13:39 | DI.CT_ITS ---
EXAM: CT CHEST W CLINICAL HISTORY: RUL LUNG CA,C34.11,RESTAGING EXAM,S/P TREATMENT TECHNIQUE: Imaging Protocol: Axial computed tomography images with coronal and sagittal reformatted images were created and reviewed CONTRAST MATERIAL: Intravenous: Omnipaque 350 Contrast volume:structured data in ml Contrast route:I V - Oral: No COMPARISON: ABD PELVIS WITH CONTRAST from 03/17/2017 CT CHEST WO from 12/07/2018 FINDINGS: Tracheobronchial tree: Patent where visualized. Mediastinum and Shameka: The previously noted right hilar lymph node has decreased in size. The pretrac heal lymph node is stable in size. No new of thoracic adenopathy is appreciated. There are again se en multiple nodules within the thyroid gland which appear stable. Pulmonary parenchyma: The spiculated right upper lobe arm mass currently measures 1.5 cm x 1 cm. Thi s compares to 2.1 by 1.2 cm using similar measuring techniques. The nodules previously seen in the l eft lingula and left lower lobe are no longer visualized. No new pulmonary nodules are present. Pleura: No effusion or pneumothorax. Heart/Aorta: Thoracic aorta non-dilated. The heart is not dilated. Coronary artery calcifications are present. No pericardial effusion is present. Upper abdomen: Unremarkable. There are unchanged areas of sclerosis seen in the bones which appears stable. Metastases cannot be excluded. IMPRESSION: 1. Interval decrease in size of right upper lobe pulmonary mass. 2. Interval resolution of the pleural effusions and pulmonary nodules. 3. Interval decrease in size of thoracic adenopathy. DATA REPOSITORY: All CT scans at this facility are submitted to the National Radiology Data Registry (NRDR) Dose Index Registry (DIR) with the [employer] (ACR). RADIATION OPTIMIZATION: All CT scans at this facility use at least one of these dose optimization te chniques: automated exposure control; mA and/or kV adjustment per patient size (includes targeted exa ms where dose is matched to clinical indication); or iterative reconstruction.
== END 2019-05-31 00:44 ==
PROVIDERS: Thoracic Surgery (Cardiothoracic Vascular Surgery); PCP Family Medicine; Visit Provider Radiology Radiation Oncology
DX: C34.11 Malignant neoplasm of upper lobe, right bronchus or lung (principal)
CPT/HCPCS: 36415; 71260; 82565; J3490

== ENCOUNTER 2019-09-14 09:22 | Outpatient (CLI) | payer OTHER, SELFPAY ==
[2019-09-14 09:56] LABS: Abs Immature Grans 0.01 k/cumm (0.0-0.09); Absolute Basophil Count 0.03 k/cumm (0.0-0.2); Absolute Eosinophil Count 0.06 k/cumm (0.0-0.7); Absolute Lymphocyte Count 1.27 k/cumm (1.2-3.4); Absolute Monocyte Count 0.48 k/cumm (0.11-0.7); Absolute Neutrophil Count 4.57 k/cumm (1.2-6.7); Basophils % 0.5; Eosinophils % 0.9; HCT 47.4 % (36.0-46.0); HGB 15.6 g/dL (12.0-15.5); Immature Grans % 0.2 %; Lymphocytes % 19.8; Mean Corp. HGB Concentration 32.9 g/dL (32.0-36.0); Mean Corpuscular Hemoglobin 31.6 pg (27.0-33.0); Mean Corpuscular Volume 96.1 fL (80-95); Mean Platelet Volume 10.5 fL (8.0-11.0); Monocytes % 7.5; Neutrophils % 71.1; Platelet Count 169 x1000/uL (130-400); RBC 4.93 m/cumm (4.00-5.20); RBC Distribution Width 15.4 % (11.7-14.6); White Blood Cell Count 6.42 k/cumm (4.4-10.8)
[2019-09-14 10:18] LABS: ALT 20 U/L (14-59); AST 15 U/L (15-37); Albumin 3.4 g/dL (3.4-5.0); Alkaline Phosphatase 85 U/L (46-116); Anion Gap 2.7 mmol/L (3-11); BUN 8 mg/dL (7-18); Bilirubin, Total 0.6 mg/dL (0.2-1.0); CO2 35.3 mmol/L (21.0-32.0); CREATININE 0.68 mg/dL (0.55-1.02); Calcium 9.3 mg/dL (8.5-10.1); Chloride 104 mmol/L (98-107); Glucose 123 mg/dL (74-106); Potassium 4.7 mmol/L (3.5-5.1); Sodium 142 mmol/L (136-145); Total Protein 6.6 g/dL (6.4-8.2)
== END 2019-09-14 09:42 ==
PROVIDERS: PCP Family Medicine; Visit Provider Nurse Practitioner
DX: C34.11 Malignant neoplasm of upper lobe, right bronchus or lung (principal)
CPT/HCPCS: 36415; 80053; 85025

== ENCOUNTER → 2019-09-21 09:56 | Outpatient (BNVA) | payer OTHER, SELFPAY | PROVIDERS: PCP Family Medicine; Referring Provider Family Medicine; Visit Provider Internal Medicine Cardiovascular Disease | DX: I50.32 Chronic diastolic (congestive) heart failure (principal); I48.2 Chronic atrial fibrillation; I65.29 Occlusion and stenosis of unspecified carotid artery; I11.0 Hypertensive heart disease with heart failure; J44.9 Chronic obstructive pulmonary disease, unspecified; F17.210 Nicotine dependence, cigarettes, uncomplicated | CPT/HCPCS: 99204; 99215 ==

== ENCOUNTER 2019-09-25 01:30 | Outpatient (CLI) | payer OTHER, SELFPAY ==
--- NOTE | 2019-09-25 13:45 | DI.CT_ITS ---
EXAM: CT CHEST WO CLINICAL HISTORY: MALIGNANT NEOPLASM UPPER LOBE RT LUNG, ASSESS FOR DISEASE PROGRESSION. TECHNIQUE: Imaging protocol: Axial computed tomography images were obtained and coronal and sagittal reformatted images were created and reviewed. COMPARISON: CT CHEST W from 05/31/2019 FINDINGS: Tracheobronchial tree: Patent where visualized. Mediastinum and Shameka: No change in the mediastinal adenopathy. Pulmonary parenchyma: There has been no change in size of the right upper lobe pulmonary mass. Centr ilobular emphysematous changes are seen in the lungs. There is again seen scarring in the left lingu la. No new pulmonary nodules or infiltrates are present. Pleura: No effusion or pneumothorax. Heart: The heart is not dilated. Coronary artery calcifications are present. No pericardial effusion is seen. Aorta: Atherosclerosis. No aneurysmal dilatation. Upper abdomen: Status post cholecystectomy. 3 cm abdominal aortic aneurysm. Lymph nodes: Stable. Bones:Stable sclerotic foci. Thyroid: Stable thyroid nodules IMPRESSION: No significant change in appearance of this CT scan of the chest since 05/31/2019 DATA REPOSITORY: All CT scans at this facility are submitted to the National Radiology Data Registry (NRDR) Dose Index Registry (DIR) with the [employer] (ACR). RADIATION OPTIMIZATION: All CT scans at this facility use at least one of these dose optimization te chniques: automated exposure control; mA and/or kV adjustment per patient size (includes targeted exa ms where dose is matched to clinical indication); or iterative reconstruction.
== END 2019-09-25 01:50 ==
PROVIDERS: PCP Family Medicine; Visit Provider Nurse Practitioner
DX: C34.11 Malignant neoplasm of upper lobe, right bronchus or lung (principal); R59.0 Localized enlarged lymph nodes; I71.4 Abdominal aortic aneurysm, without rupture
CPT/HCPCS: 71250

== ENCOUNTER 2020-02-13 13:17 | Outpatient (REF) | payer OTHER, SELFPAY ==
--- NOTE | 2020-02-13 09:15 | SKI_PTH ---
PATIENT: Siomara Quinones LOC: [facility] U#:[id number] AGE/SX: 74/F ROOM: RE02/13/[address]: Sherwin Ceja : 1945 BED: DIS: 02/13/2020 SPEC #: [id number] RECD: 02/13/20 14:52 STATUS: OLIVIA ONEIL #: [id number] HODA: 02/13/20 09:[address]: Sherwin Ceja DEPT: Surgical Specimen RECD BY: Malissa Waldron Tissues: 1 - SKIN BIOPSY(SHAVE/PUNCH) Procedures: SKIN LEVEL 4 Comments: [id number]
== END 2020-02-13 13:37 ==
LOC: NCHCN 13:17
PROVIDERS: PCP Family Medicine; Visit Provider Family Medicine
DX: C44.629 Squamous cell carcinoma of skin of left upper limb, including shoulder (principal)
CPT/HCPCS: 88305

== ENCOUNTER 2020-02-21 01:31 | Outpatient (CLI) | payer OTHER, SELFPAY ==
--- NOTE | 2020-02-21 | DI.CT_ITS ---
EXAM: CT CHEST W CLINICAL HISTORY: NON-SMALL CELL LUNG CA, C34.90,PAIN RT SHOULDER/AXILLA/CHEST WALL,[id number] TECHNIQUE: Imaging Protocol: Axial computed tomography images with coronal and sagittal reformatted images were created and reviewed CONTRAST MATERIAL: Intravenous: Omnipaque 350 Contrast volume:70 mL. COMPARISON: CT CT CHEST WO from 09/25/2019 FINDINGS: Tracheobronchial tree: Patent where visualized. Mediastinum and Shameka: No dominant adenopathy or fluid collection. Pulmonary parenchyma: Centrilobular emphysema. There has been no change in the right upper lobe pulm onary mass. Stable scarring in the left lingula. No new pulmonary infiltrates or nodules. Pleura: No effusion or pneumothorax. Heart: Cardiomegaly. Mild coronary artery calcification. No pericardial effusion. Aorta: Thoracic aorta non-dilated. Atherosclerosis. Upper abdomen: Stable nodularity of the left adrenal gland. Status post cholecystectomy. Lymph nodes: Within normal limits. Bones: Sclerotic foci are again seen in the bones. No acute fracture or subluxation. IMPRESSION: No change in appearance of the CT scan of the chest since 09/25/2019. RADIATION DOSE DELIVERED: 426.42mGy.cm Total DLP DATA REPOSITORY: All CT scans at this facility are submitted to the National Radiology Data Registry (NRDR) Dose Index Registry (DIR) with the [employer] (ACR). RADIATION OPTIMIZATION: All CT scans at this facility use at least one of these dose optimization te chniques: automated exposure control; mA and/or kV adjustment per patient size (includes targeted exa ms where dose is matched to clinical indication); or iterative reconstruction.
[2020-02-21] MEDS: Omnipaque 350 MG/ML 100 ML BTL IJ (14:20)
[2020-02-21] MEDS: Normal Saline - Diluent 50 ML VIAL IV (14:21)
[2020-02-21] MEDS: Normal Saline Flush 10 ML SYR IVP (14:22)
== END 2020-02-21 01:51 ==
PROVIDERS: PCP Family Medicine; Visit Provider Family Medicine
DX: M25.511 Pain in right shoulder (principal); C34.11 Malignant neoplasm of upper lobe, right bronchus or lung; J43.8 Other emphysema
CPT/HCPCS: 71260; 82565; J3490

== ENCOUNTER → 2020-03-18 09:32 | Outpatient (BNVA) | payer OTHER, SELFPAY | PROVIDERS: PCP Family Medicine; Referring Provider Family Medicine; Visit Provider Internal Medicine Cardiovascular Disease | DX: I48.20 Chronic atrial fibrillation, unspecified (principal); I11.0 Hypertensive heart disease with heart failure; J44.9 Chronic obstructive pulmonary disease, unspecified; F17.210 Nicotine dependence, cigarettes, uncomplicated; I50.9 Heart failure, unspecified | CPT/HCPCS: 99214 ==

== ENCOUNTER 2020-07-03 02:14 | Outpatient (CLI) | payer OTHER, SELFPAY ==
--- NOTE | 2020-07-03 | DI.US_ITS ---
EXAM: US THYROID CLINICAL HISTORY: F/U MULTINODULAR GOITER, NODULE, E04.2. TECHNIQUE: Ultrasound thyroid performed using standard protocol. COMPARISON: US CAROTID ULTRASOUND from 07/30/2011 US RIGHT BREAST ULTRASOUND from 09/19/2013 US CAROTID ULTRASOUND from 03/31/2015 US THYROID ULTRASOUND from 01/24/[address] CHEST W from 02/21/2020 FINDINGS: ISTHMUS: 5 mm RIGHT LOBE: Size: 4.4 x 2.5 x 1.9 cm Echogenicity: Heterogeneous Vascularity: Normal. Nodules: Numerous. Largest nodule at the lower pole measures 2.1 cm in greatest dimension. It appea rs unchanged in appearance. LEFT LOBE: Size: 5.0 x 2.2 x 1.9 cm Echogenicity: Heterogeneous Vascularity: Normal. Nodules: Numerous. The largest at the lower pole measures 2.2 cm in greatest dimension. It does not appear significantly changed in appearance. OTHER FINDINGS: None. IMPRESSION: Stable appearance of multinodular thyroid. Two largest nodules are TI-RADS category 3. DATA REPOSITORY:
== END 2020-07-03 02:34 ==
PROVIDERS: PCP Family Medicine; Visit Provider Family Medicine
DX: E04.2 Nontoxic multinodular goiter (principal)
CPT/HCPCS: 76536

== ENCOUNTER 2020-08-25 00:55 | Outpatient (CLI) | payer OTHER, SELFPAY ==
--- NOTE | 2020-08-25 13:46 | DI.CT_ITS ---
EXAM: CT CHEST WO CLINICAL HISTORY: H/O RUL LUNG CA,C34.11,S/P TREATMENT, ? STATUS OF DISEASE. TECHNIQUE: Multi planar reconstructions were performed. CONTRAST MATERIAL: None COMPARISON: CT CT CHEST W from 02/21/2020 FINDINGS: CHEST: LUNGS:. Spiculated nodule in the lateral aspect of the sub apical right upper lobe exhibits minimal if any significant change.. No new significant right lung findings nor pleural effusion. g no new si gnificant focal findings in the opposite-left lung. Infiltrate in the lingular segment is unchanged. No pleural effusions no new focal findings in the trachea and mainstem bronchi. MEDIASTINUM: No new obvious hilar nor mediastinal adenopathy, realizing the limitations of a non few study. Abnormal thyroid which contains calcified and noncalcified nodules bilaterally, similar to e previous study.. CARDIAC: Heart size is normal. There is no pericardial effusion.Caliber of the thoracic aorta is 3.4 centimetres. VISUALIZED UPPER ABDOMEN:There are no significant adrenal masses. Upper most aspect of the dilated a bdominal aorta is noted, measuring diameter of 2.8 centimetres. The gallbladder surgically absent. OSSEOUS: Stable sclerotic foci.. IMPRESSION: 1. As above but without significant change when compared to the prior CT scan of September 2019 and Feb. 2. Aortic findings as above, also stable. 3. No pleural effusions. RADIATION DOSE DELIVERED: 460.93mGy.cm Total DLP DATA REPOSITORY: All CT scans at this facility are submitted to the National Radiology Data Registry (NRDR) Dose Index Registry (DIR) with the [employer] (ACR). RADIATION OPTIMIZATION: All CT scans at this facility use at least one of these dose optimization te chniques: automated exposure control; mA and/or kV adjustment per patient size (includes targeted exa ms where dose is matched to clinical indication); or iterative reconstruction.
== END 2020-08-25 01:15 ==
PROVIDERS: PCP Family Medicine; Visit Provider Nurse Practitioner Family
DX: C34.11 Malignant neoplasm of upper lobe, right bronchus or lung (principal); E04.2 Nontoxic multinodular goiter; I77.811 Abdominal aortic ectasia
CPT/HCPCS: 71250

== ENCOUNTER → 2020-09-11 08:55 | Outpatient (BNVA) | payer OTHER, SELFPAY | PROVIDERS: PCP Family Medicine; Referring Provider Family Medicine; Visit Provider Internal Medicine Cardiovascular Disease | DX: I48.21 Permanent atrial fibrillation (principal); I11.0 Hypertensive heart disease with heart failure; J44.9 Chronic obstructive pulmonary disease, unspecified; F17.210 Nicotine dependence, cigarettes, uncomplicated; Z79.01 Long term (current) use of anticoagulants; I50.9 Heart failure, unspecified | CPT/HCPCS: 99213 ==

== ENCOUNTER 2020-09-15 17:13 | Outpatient (REF) | payer OTHER, SELFPAY ==
[2020-09-15 18:57] LABS: Anion Gap 3.1 mmol/L (3-11); BUN 11 mg/dL (7-18); CO2 33.9 mmol/L (21.0-32.0); CREATININE 0.65 mg/dL (0.55-1.02); Calcium 9.3 mg/dL (8.5-10.1); Chloride 103 mmol/L (98-107); Glucose 95 mg/dL (74-106); Potassium 4.4 mmol/L (3.5-5.1); Sodium 140 mmol/L (136-145)
== END 2020-09-15 17:33 ==
LOC: NCHCN 17:13
PROVIDERS: PCP Family Medicine; Visit Provider Family Medicine
DX: I10 Essential (primary) hypertension (principal)
CPT/HCPCS: 80048

== ENCOUNTER 2021-01-13 01:26 | Outpatient (CLI) | payer OTHER, SELFPAY ==
--- NOTE | 2021-01-13 | DI.CT_ITS ---
Exam(s) CT CHEST W EXAM: CT CHEST W CLINICAL HISTORY: H/O LUNG CA,S/P TREATMENT,? STATUS OF DISEASE TECHNIQUE: Imaging Protocol: Axial computed tomography images with coronal and sagittal reformatted images were created and reviewed CONTRAST MATERIAL: Intravenous: Omnipaque 350 Contrast volume:70 mL. COMPARISON: CT CT CHEST WO from 08/25/2020 FINDINGS: Tracheobronchial tree: Patent where visualized. Mediastinum and Shameka: No dominant adenopathy or fluid collection. Stable thyroid nodules. Pulmonary parenchyma: Stable spiculated nodule in the lateral aspect of the right lung apex. Mild ce ntrilobular emphysematous changes. Stable scarring in the left lingula. No acute focal consolidatin g infiltrates. No new pulmonary nodules are present. Pleura: No effusion or pneumothorax. Heart: Cardiomegaly. Mild coronary artery calcification. No pericardial effusion. Aorta: Thoracic aorta non-dilated. Atherosclerosis. Upper abdomen: A 3.2 cm infrarenal abdominal aortic aneurysm is incompletely imaged on the upper abd ominal views. Status post cholecystectomy. Lymph nodes: Within normal limits. Bones: Stable osseous findings in the thoracic spine and sternum. Soft tissues: Unremarkable. IMPRESSION: 1. Stable area of spiculation in the right lung apex. 2. 3.2 cm infrarenal abdominal aortic aneurysm incompletely imaged. 3. Stable centrilobular emphysema and left lingular scarring. Incidental Findings RADIATION DOSE DELIVERED: 411.09mGy.cm Total DLP DATA REPOSITORY: All CT scans at this facility are submitted to the National Radiology Data Registry (NRDR) Dose Index Registry (DIR) with the [employer] (ACR). RADIATION OPTIMIZATION: All CT scans at this facility use at least one of these dose optimization te chniques: automated exposure control; mA and/or kV adjustment per patient size (includes targeted exa ms where dose is matched to clinical indication); or iterative reconstruction.
[2021-01-13 09:48] LABS: CREATININE 0.7 mg/dL (0.55-1.02)
[2021-01-13] MEDS: Normal Saline - Diluent 50 ML VIAL IV (10:47)
[2021-01-13] MEDS: Omnipaque 350 MG/ML 100 ML BTL IJ (10:47)
[2021-01-13] MEDS: Normal Saline Flush 10 ML SYR IVP (10:48)
== END 2021-01-13 01:46 ==
PROVIDERS: PCP Family Medicine; Visit Provider Nurse Practitioner Family
DX: R91.8 Other nonspecific abnormal finding of lung field (principal); I71.4 Abdominal aortic aneurysm, without rupture; J43.8 Other emphysema; J98.4 Other disorders of lung; C34.11 Malignant neoplasm of upper lobe, right bronchus or lung; Z01.812 Encounter for preprocedural laboratory examination
CPT/HCPCS: 71260; 82565; J3490

== ENCOUNTER 2021-03-18 16:10 | Outpatient (REF) | payer OTHER, SELFPAY ==
[2021-03-18 16:04] LABS: HGB 16.4 g/dL (11.2-15.7); MCH 31.2 pg (27.0-33.0); MCHC 31.5 % (32.0-36.0); MCV 98.9 fL (80-95); MPV 11.5 fL (8.0-11.0); Platelet Count 169 10^3/uL (130-400); RBC 5.26 10^6/uL (3.93-5.22); RDW 15.1 % (11.7-14.6); RDW-SD 55.4 fL; WBC 6.21 10^3/uL (4.4-10.8)
[2021-03-18 16:06] LABS: TSH (W/Ref FT4) 0.91 uIU/mL (0.36-3.74)
== END 2021-03-18 16:11 | disposition home or self-care (01) ==
LOC: NCHCN 16:10
PROVIDERS: PCP Family Medicine; Visit Provider Family Medicine
DX: E04.2 Nontoxic multinodular goiter (principal); R53.83 Other fatigue
CPT/HCPCS: 85027; 84443

== ENCOUNTER → 2021-04-24 03:18 | Outpatient (CLI) | payer OTHER, SELFPAY ==
--- NOTE | 2021-04-24 | DI.US_ITS ---
Exam(s) US THYROID EXAM: US THYROID CLINICAL HISTORY: MULTI NODULAR THYROID GOITER,E04.2,F/U 2 NODULES. TECHNIQUE: Ultrasound thyroid performed using standard protocol. COMPARISON: US US THYROID from 07/03/2020 FINDINGS: ISTHMUS: 13 mm RIGHT LOBE: Size: 5 x 2.5 x 2.3 cm Echogenicity: Normal. Vascularity: Normal. Nodules: There is a multinodular right lobe of the thyroid gland. The largest on the right measures 2.7 x 2.1 cm. Comparing the prior examination images it is unchanged in size. [facility] are all stable in size and appearance. There are punctate echogenic foci seen in several of the nodules. This was present on prior examinations. This does make them TI-RADS level 4 nodules. LEFT LOBE: Size: 4.8 x 2.2 x 1.9 cm Echogenicity: Normal. Vascularity: Normal. Nodules: Multiple thyroid nodules. The largest measures 2.5 x 2.1 cm. Using similar techniques on t he prior examination there has been no significant change in size. This is a TI-RADS level 3 nodule. OTHER FINDINGS: None. IMPRESSION: There has been no change in appearance or size of the nodules in the thyroid gland since 07/03/2020. DATA REPOSITORY:
== END ==
PROVIDERS: PCP Family Medicine; Visit Provider Family Medicine
DX: E04.2 Nontoxic multinodular goiter (principal)
CPT/HCPCS: 76536

== ENCOUNTER 2021-08-17 15:11 | Observation (INO) | payer MEDICARE, SELFPAY ==
[2021-08-17] VITALS (25 sets, daily range): BP systolic 117–150; BP diastolic 64–86; PULSE 64–81; RESP 8–25; TEMP 36.6–36.7; O2SAT 81–100
--- NOTE | 2021-08-17 15:00 | RT.EKG_ITS ---
APPROVED REPORT Exam: Resting ECG Reason for Exam: sob Patient Location: E HR:77 bpm ECG Measurements Heart Rate 77 AXIS ID [id number] P [id number] QRSd 79 QRS 102 QT 391 T 9 QTc 444 Conclusion Atrial fibrillation...V-rate 60- 85, irreg A-activity Anterior infarct, old...Q >40mS, abnormal ST-T, V2-V5
--- NOTE | 2021-08-17 15:30 | ED.GENADUL_ITS ---
Discharge Plan Disposition Patient Disposition: [facility] INPATIENT Condition: Stable Discharge Details Chief Complaint: SOB Clinical Impression: COPD (chronic obstructive pulmonary disease), Hypoxia, Shortness of breath Primary Care Provider: Sherwin Ceja ED Provider: Patrick Tamez Home Meds and New Rx's Prescriptions: No Action Xarelto 20 mg tablet 20 mg PO QPM Qty: 30 RF: 11 diltiazem HCl 120 mg capsule,extended release 24hr 120 mg PO DAILY RF: 0 lisinopril 10 mg tablet 5 mg PO DAILY RF: 0 atorvastatin [Lipitor] 80 mg Tablet 80 mg PO QPM RF: 0 albuterol sulfate [ProAir HFA] 90 mcg/actuation Hfa Aerosol Inhaler 2 puff INHALATION QID PRNRF: 0 ipratropium-albuterol 0.5 mg-3 mg(2.5 mg base)/3 mL Solution For Nebulization 3 ml UPD Q6H PRN PRN (Reason: shortness of breath or wheezing) Qty: 180 RF: 0 Medical Decision Making 76 yo female with hx of copd and smoker, afib, htn, who comes in with ems who comes in with shortness of breath for 2-3 days and cough. She states when she does have a cough she feels some discomfort in the anterior chest. She has had her vaccinations including booster for covid. She denies fevers, chills, abdominal pain. She was noted to be 84% on room air and on 4L [place] is 98%. She has diffuse wheezing on exam in both lung moses, no jvd, no murmurs, no leg swelling or calf tenderness. I suspect her symptoms could be due to her copd, will treat with neb and solumedrol. Will also evaluate for possible cardiac etiology with ecg and troponin. Given her hypoxia will obtain CTA to evaluate for PE vs pneumonia and also obtain covid test labs unremarkable, covid negative, CTA shows no PE though does have small bilateral pleural effusions, consolidation in right lower lobe and cardiomegaly. She is still requiring oxygen and was very dyspneic going to the commode. Will treat with lasix, ceftriaxone/azithromycin and discuss with hospitalist about admission Differential Diagnosis Differential Diagnosis: copd, pe, pneumonia, nstemi Medical Records Medical records reviewed: Yes I reviewed the patient's medical records. Imaging Data Radiologic Study: Attestation: I personally reviewed and interpreted this imaging study as follows: Imaging: CT Scan Radiologist's impression: IMPRESSION: 1. No pulmonary embolism identified 2. Small bilateral pleural effusions 3. Consolidation and volume loss in the right lower lobe posteriorly 4. Cardiomegaly with right atrial enlargement, progressed since 01/13/2021 5. New prominent right hilar lymph node. Lab Data Lab results reviewed: Yes I reviewed the patient's lab results. ECG Data Attestation: I personally reviewed and interpreted this ECG (s) as follows: Prior ECG tracings: available for review Interpretation: afib rate of [address] t wave ischemic findings HPI General Mode of arrival: EMS . Date/Time Provider Initiated Documentation: 08/17/21 15:13 . Limitations to Documentation: no limitations . Information obtained by: patient . History of Present Illness 76 year old F presents to the emergency department with the chief complaint of shortness of breath, described as moderate, Patient started experiencing this day(s) (3) and it has been constant. Rest improves symptom(s), Movement worsens symptoms . Patient notes cough. Patient did receive the following treatments prior to arrival, none Related Data Home Medications Medication Instructions Recorded Confirmed albuterol sulfate [ProAir HFA] 2 puff INHALATION QID PRN 11/09/18 08/17/21 atorvastatin [Lipitor] 80 mg PO QPM 11/09/18 08/17/21 ipratropium-albuterol 3 ml UPD Q6H PRN PRN #180 ml 11/16/18 08/17/21 rivaroxaban 20 mg tablet 20 mg PO QPM #30 tab 03/14/19 08/17/21 diltiazem HCl 120 mg 120 mg PO DAILY 09/21/19 08/17/21 capsule,extended release 24 hr lisinopril 10 mg tablet 5 mg PO DAILY tab 03/18/20 08/17/21 Previous Rx's Medication Instructions Recorded ipratropium-albuterol 3 ml UPD Q6H PRN PRN #180 ml 11/16/18 rivaroxaban 20 mg tablet 20 mg PO QPM #30 tab 03/14/19 Allergies Allergy/AdvReac Type Severity Reaction Status Date / Time No Known Allergies Allergy Unverified 08/17/21 15:25 General Stated Complaint: SOB BOGDAN: 2 Review of Systems All systems reviewed & are unremarkable except as noted in HPI and below Constitutional Constitutional: Denies chills and Denies fever(s) ENT Ears, Nose, Mouth, and Throat: Denies change in voice Cardiovascular Cardiovascular: Denies chest pain Gastrointestinal Gastrointestinal: Denies abdominal pain, Denies nausea and Denies vomiting Musculoskeletal Musculoskeletal: Denies joint swelling Psychiatric Psychiatric: Denies depression [facility] Active Problem List (Updated 08/17/21 @ 19:00 by Patrick Tamez MD) Hypoxia (Acute) Shortness of breath (Acute) CHF (congestive heart failure) (Chronic) DVT prophylaxis (Acute) Discharge planning issues (Acute) HTN (hypertension) (Chronic) Atrial fibrillation (Chronic) Smoker (Acute) COPD (chronic obstructive pulmonary disease) (Chronic) Lung mass (Acute) Medical History Atrial fibrillation COPD (chronic obstructive pulmonary disease) HTN (hypertension) Hypercholesteremia Lung cancer Lung mass Smoker Family History Father Hemochromatosis Cirrhosis due to hemochromatosis Diabetes Daughter Heart disease [place] in 40s Social History Smoking/Tobacco Use Status: Current every day Tobacco Type: cigarettes Years smoked: 50 Quit status: considering quitting Counseling given: patient declined Smoking risk assessment performed?: Yes Alcohol Intake: never Drug use: Never Substance use type: does not use What type of physical activity do you participate in: none Exam Const General: no acute distress Orientation: alert HENMT Head: normal to inspection Ears: external ears normal General nose exam: external nose normal Mouth: moist mucous membranes Eyes General: appearance normal, both eyes and all related structures Neck Neck: normal visual inspection Resp Effort & Inspection: audible wheezes and cough Cardio Rate: regular rate Skin General skin exam: no rashes or lesions noted Neuro General: patient alert and patient oriented x3 Extrem General: normal to inspection Psych Mental Status: mental status grossly normal Course Vital Signs Vital signs: Vital Signs Temperature 36.6 C 08/17/21 15:22 Pulse 72 08/17/21 15:22 Respiratory Rate 21 08/17/21 15:22 Blood Pressure 150/86 H 08/17/21 15:22 Pulse Oximetry 84 L 08/17/21 15:22 Temperature 36.6 C 08/17/21 15:22 Temperature Source Skin 08/17/21 15:22 Pulse 72 08/17/21 15:22 Respiratory Rate 21 08/17/21 15:22 Respiratory Effort 08/17/21 15:22 Blood Pressure 150/86 H 08/17/21 15:22 Blood Pressure Position Supine 08/17/21 15:22 Pulse Oximetry 99 08/17/21 15:29 Oxygen Delivery Method Nasal Cannula 08/17/21 15:29 Oxygen Flow Rate 3 08/17/21 15:29 Lab/Test Results Lab/Test Results: 08/17/21 15:29 Blood Blood Culture - Pending 08/17/21 15:29 Blood Blood Culture - Pending
--- NOTE | 2021-08-17 15:30 | DI.CT_ITS ---
Exam(s) CT CHEST PE CTA EXAM: CT CHEST PE CTA CLINICAL HISTORY: dyspnea and hypoxia. TECHNIQUE: Imaging Protocol: Axial CT angiography was performed with multi-slice acquisition and mu lti-planar and/or 3D reconstructions. CONTRAST MATERIAL: Intravenous: Omnipaque 350 Contrast volume:75 mL COMPARISON: US US THYROID from 07/03/[address] CHEST W from 01/13/2021 FINDINGS: Tracheobronchial tree: Patent where visualized. Pulmonary parenchyma: No consolidation or dominant measurable mass. Mild centrilobular emphysematous changes. There is mild diffuse interstitial thickening. There are small bilateral pleural effusions with subjacent infiltrates. These are new. There is again seen scarring and/or atelectasis in the left lingula. There is persistent spiculation in the lateral aspect of the right upper lobe. Pulmonary Arteries: No evidence of filling defect to suggest pulmonary emboli. Mediastinum and Shameka: No dominant adenopathy or fluid collection. The esophagus is unremarkable. The re is a stable right hilar lymph node. Visualized thyroid gland: There is a multinodular thyroid gland. The largest nodule visualized measu res 1.5 cm. The patient has had a prior thyroid ultrasound from 07/03/2020 which showed multinodular thyroid gland. Pleura: New small bilateral pleural effusions. No pneumothorax. Heart: Cardiomegaly. Coronary artery calcification. No pericardial effusion. Aorta: Thoracic aorta non-dilated. No evidence of dissection. Atherosclerosis. Upper abdomen: Unremarkable. Contrast is seen in the IVC. Soft tissues: Unremarkable. Bones: Within normal limits for the patient's age.No change in appearance of the thoracic spine. IMPRESSION: 1. No evidence of pulmonary embolism, thoracic aortic dissection or aneurysm. 2. Cardiomegaly, bilateral pleural effusions and interstitial prominence suspicious for congestive he art failure. Please correlate clinically. 3. Subjacent infiltrate in the lower lobes bilaterally which may represent atelectasis. Pneumonia can not be entirely excluded. RADIATION DOSE DELIVERED: 270.1mGy.cm Total DLP DATA REPOSITORY: All CT scans at this facility are submitted to the National Radiology Data Registry (NRDR) Dose Index Registry (DIR) with the [employer] (ACR). RADIATION OPTIMIZATION: All CT scans at this facility use at least one of these dose optimization te chniques: automated exposure control; mA and/or kV adjustment per patient size (includes targeted exa ms where dose is matched to clinical indication); or iterative reconstruction.
[2021-08-17 15:44] LABS: BE (Venous) 10 mmol/L (-2-3); HCO3 (Venous) 36 mmol/L (23-28); O2 Sat (Venous) 83 %; TCO2 (Venous) 32 mmol/L (24-29); pO2 (Venous) 51 mmHg
[2021-08-17 15:47] LABS: Abs Immature Grans 0.03 10^3/uL (0.0-0.06); Absolute Basophil Count 0.06 10^3/uL (0.0-0.2); Absolute Eosinophil Count 0.04 10^3/uL (0.0-0.7); Absolute Lymphocyte Count 1.56 10^3/uL (1.2-3.4); Absolute Monocyte Count 0.68 10^3/uL (0.1-0.8); Absolute Neutrophil Count 4.02 10^3/uL (1.2-6.7); Basophils % 0.9; Eosinophils % 0.6; HCT 49.2 % (36.0-46.0); HGB 15.7 g/dL (11.2-15.7); Immature Grans % 0.5; Lymphocytes % 24.4; MCH 31.6 pg (27.0-33.0); MCHC 31.9 % (32.0-36.0); Monocytes % 10.6; Nucleated RBC 0 %; Platelet Count 176 10^3/uL (130-400); RBC 4.97 10^6/uL (3.93-5.22); RDW 16.2 % (11.7-14.6); WBC 6.39 10^3/uL (4.4-10.8)
[2021-08-17 15:48] LABS: pCO2 (Venous) 73 mmHg (41-51)
[2021-08-17 16:01] LABS: Source Nasal/Nares
[2021-08-17] MEDS: methylPREDNISolone SUCC 125 MG VIAL IVP (16:15)
[2021-08-17 16:16] LABS: ALT 30 U/L (14-59); AST 22 U/L (15-37); Albumin 3.2 g/dL (3.4-5.0); Alkaline Phosphatase 106 U/L (46-116); Anion Gap 3.4 mmol/L (3-11); BUN 12 mg/dL (7-18); Bilirubin, Total 0.5 mg/dL (0.2-1.0); CO2 34.6 mmol/L (21.0-32.0); CREATININE 0.6 mg/dL (0.55-1.02); Calcium 8.7 mg/dL (8.5-10.1); Chloride 103 mmol/L (98-107); Glucose 103 mg/dL (74-106); Magnesium 2.1 mg/dL (1.8-2.4); Potassium 4.3 mmol/L (3.5-5.1); Sodium 141 mmol/L (136-145); Total Protein 6.8 g/dL (6.4-8.2)
[2021-08-17 16:17] LABS: Troponin I < 0.05 ng/mL (<0.06)
[2021-08-17] MEDS: Normal Saline Flush 10 ML SYR IVP ×2 (16:17→19:31)
[2021-08-17 16:25] LABS: NT-proBNP 4065 pg/mL (<300); TSH (W/Ref FT4) 2.02 uIU/mL (0.36-3.74)
[2021-08-17] MEDS: Albuterol/Ipratropium 3 ML UPD VIAL UPD (16:33)
[2021-08-17 17:07] LABS: INR 1.3 (0.9-1.1); PTT Activated 28.5 sec (21.0-27.5); Prothrombin Time 13.4 sec (9.3-11.0)
[2021-08-17 17:20] LABS: COVID-19 PCR Negative (Negative)
[2021-08-17] MEDS: Omnipaque 350 MG/ML 100 ML BTL IJ (17:21)
--- NOTE | 2021-08-17 18:34 | DI.VRAD_ITS ---
PROCEDURE INFORMATION: Exam: CTA Chest With Contrast Exam date and time: 08/17/2021 3:39 PM Age: 76 years old Clinical indication: Dyspnea and other: Hypoxia; Patient HX: Dyspnea, hypoxia TECHNIQUE: Imaging protocol: Computed tomographic angiography of the chest with contrast. 3D rendering (Not supervised by radiologist): MIP and/or 3D reconstructed images were created by the technologist. COMPARISON: CT chest PE CTA 11/09/2018 1:24 PM FINDINGS: Pulmonary arteries: Normal. No pulmonary emboli. Aorta: Unremarkable. No aortic aneurysm. No aortic dissection. Thyroid: Stable multinodular thyroid and a 1.6 cm calcified left thyroid nodule. Lungs: Diffuse bilateral interstitial prominence likely due to edema.. Mild diffuse bronchial wall thickening. Area of consolidation in the right lung base posterolaterally. Dependent atelectasis in both lungs. Volume loss in the lingula. Pleural spaces: Stable focal scarring with pleural thickening and and pulmonary retraction in the right apex. Changes of emphysema. Small bilateral pleural effusions. Heart: Cardiomegaly. Enlarged right atrium. Lymph nodes: Prominent right hilar lymph node measuring approximately 1.8 cm best seen axial series 4, image 32. 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 Soft tissues: Unremarkable. Other findings: Vascular calcifications. IMPRESSION: 1. No pulmonary embolism identified 2. Small bilateral pleural effusions 3. Consolidation and volume loss in the right lower lobe posteriorly 4. Cardiomegaly with right atrial enlargement, progressed since 01/13/2021 5. New prominent right hilar lymph node. Dictated and Authenticated by: Bety Walton MD. Ordering:DONOVAN Nguyen MD
--- NOTE | 2021-08-17 19:17 | HPE_ITS ---
Date of service: 08/17/21 Time of Service: 19:17 Assessment and Plan Assessment and plan (1) COPD (chronic obstructive pulmonary disease): Status: Chronic Assessment and plan: COPD exacerbation, with also apparent pneumonia (though w/o fever or leukocytosis). Modest respiratory insufficiency by VBG (t celso no priors), but clinically she appears much improved regardless. Will continue steroids, updrafts and abx. May also be an element of CHF by BNP and small pleural effusions, but clinically this appears not to be a substantial factor and I don't think will need to push diuresis further at present moment. 1. COPD/pneumonia: as above 2. CHF: as above 3. AF: rate control and DOAC as is 4. HTN: CCB and ANGEL as is Reviewed ADs, requests DNR History of Present Illness History of Present Illness Chief Complaint: SOB Narrative: 76 female with h/o COPD, continues to smoke, CHF, AF -- here with 3 days of cough productive of clear sputum (with occ blood streaking) and LAMBERT. No CP, no ankle swelling, no orthopnea. In ER findings of note for RA sats in 80s, no fever, diffuse wheezing; no leukocytosis; and CTA neg PE but with RLL consolidation along with small pleural effusions. COVID negative. VBG shows pH 7.30, pCO2 70; BNP 4065. Patient given Steroids, updrafts, Lasix 20 IV, and Rocephin/Zithro. Initially stated she wanted to leave but then agrees to stay. I was asked to evaluate for admission. Patient states she is feeling much better, though has not been up to ambulate. States she is willing to stay for one night. Review of Systems All systems reviewed & are unremarkable except as noted in HPI and below PFSH Active Problem List Hypoxia (Acute) Shortness of breath (Acute) CHF (congestive heart failure) (Chronic) DVT prophylaxis (Acute) Discharge planning issues (Acute) HTN (hypertension) (Chronic) Atrial fibrillation (Chronic) Smoker (Acute) COPD (chronic obstructive pulmonary disease) (Chronic) Lung mass (Acute) Medical History Atrial fibrillation COPD (chronic obstructive pulmonary disease) HTN (hypertension) Hypercholesteremia Lung cancer Lung mass Smoker Family History Father Hemochromatosis Cirrhosis due to hemochromatosis Diabetes Daughter Heart disease [place] in 40s Social History Smoking/Tobacco Use Status: Current every day Tobacco Type: cigarettes Years smoked: 50 Quit status: considering quitting Counseling given: patient declined Smoking risk assessment performed?: Yes Alcohol Intake: never Drug use: Never Substance use type: does not use What type of physical activity do you participate in: none Meds Allergies and Home Medications Allergies Allergy/AdvReac Type Severity Reaction Status Date / Time No Known Allergies Allergy Unverified 08/17/21 15:25 Home Medications Medication Instructions Recorded Confirmed Type albuterol sulfate [ProAir HFA] 2 puff INHALATION QID PRN 11/09/18 08/17/21 History atorvastatin [Lipitor] 80 mg PO QPM 11/09/18 08/17/21 History ipratropium-albuterol 3 ml UPD Q6H PRN PRN #180 ml 11/16/18 08/17/21 Rx rivaroxaban 20 mg tablet 20 mg PO QPM #30 tab 03/14/19 08/17/21 Rx diltiazem HCl 120 mg 120 mg PO DAILY 09/21/19 08/17/21 History capsule,extended release 24 hr lisinopril 10 mg tablet 5 mg PO DAILY tab 03/18/20 08/17/21 History Exam Narrative Exam Narrative: 129/76, 78, 36.6, 17, 87% RA (initially, 97% 2L during visit. I turn down to 1L and sat 94%). HEENT atraumatic; neck supple; lungs diminished, scattered wheeze, rales right base; heart irr/irr; abdomen soft and NT; extremities w/o edema; neuro Ox3, lucid, moves all 4s Results Labs Result diagrams: 08/17/21 14:57 08/17/21 14:57 Labs: Laboratory Results - last 24 hr 08/17/21 08/17/21 08/17/21 14:57 14:57 14:57 WBC RBC Hgb Hct MCV MCH MCHC RDW Plt Count MPV Immature Gran % Neutrophils % Lymphocytes % Monocytes % Eosinophils % Basophils % Nucleated RBC % Absolute Neutrophils Absolute Lymphocytes Absolute Monocytes Absolute Eosinophils Absolute Basophils PT INR APTT VBG pH 7.30 L VBG pCO2 73 H* VBG pO2 51 VBG HCO3 36 H VBG Total CO2 32 H VBG O2 Saturation 83 VBG Base Excess 10 H Sodium 141 Potassium 4.3 Chloride 103 Carbon Dioxide 34.6 H Anion Gap 3.4 BUN 12 Creatinine 0.6 Estimated GFR/1.73 m2 >= 60.00 Glucose 103 Calcium 8.7 Magnesium 2.1 Total Bilirubin 0.5 AST 22 ALT 30 Alkaline Phosphatase 106 Troponin I < 0.05 NT-Pro-B Natriuret Pep 4065 H Total Protein 6.8 Albumin 3.2 L TSH 2.02 COVID-19 Source SARS-CoV-2 (PCR) 08/17/21 08/17/21 08/17/21 14:57 15:40 16:40 WBC 6.39 RBC 4.97 Hgb 15.7 Hct 49.2 H MCV 99.0 H MCH 31.6 MCHC 31.9 L RDW 16.2 H Plt Count 176 MPV 11.0 Immature Gran % 0.5 Neutrophils % 63.0 Lymphocytes % 24.4 Monocytes % 10.6 Eosinophils % 0.6 Basophils % 0.9 Nucleated RBC % 0 Absolute Neutrophils 4.02 Absolute Lymphocytes 1.56 Absolute Monocytes 0.68 Absolute Eosinophils 0.04 Absolute Basophils 0.06 PT 13.4 H INR 1.3 H APTT 28.5 H VBG pH VBG pCO2 VBG pO2 VBG HCO3 VBG Total CO2 VBG O2 Saturation VBG Base Excess Sodium Potassium Chloride Carbon Dioxide Anion Gap BUN Creatinine Estimated GFR/1.73 m2 Glucose Calcium Magnesium Total Bilirubin AST ALT Alkaline Phosphatase Troponin I NT-Pro-B Natriuret Pep Total Protein Albumin TSH COVID-19 Source Nasal/Nares SARS-CoV-2 (PCR) Negative Last Vital Signs Temp 36.6 C 08/17/21 15:22 Pulse 78 08/17/21 18:02 Resp 17 08/17/21 18:02 BP 129/76 08/17/21 18:02 Pulse Ox 87 L 08/17/21 18:06
[2021-08-17] MEDS: Furosemide 20 MG/2 ML VIAL IVP (19:27)
[2021-08-17] MEDS: cefTRIAXone 2 GM/50 ML BAG IVPB (19:31)
[2021-08-17] MEDS: AZITHROMYCIN 500 MG in Normal Saline 250 ML 250 MG IVPB (19:32)
[2021-08-17 19:34] LABS: Troponin I < 0.05 ng/mL (<0.06)
[2021-08-18] MEDS: methylPREDNISolone SUCC 40 MG VIAL IVP ×2 (00:10→08:27)
[2021-08-18 00:11] VITALS: RESP 2
[2021-08-18] MEDS: Normal Saline Flush 10 ML SYR IVP ×2 (00:11→08:28)
[2021-08-18] MEDS: Albuterol/Ipratropium 3 ML UPD VIAL UPD ×3 (00:11→12:07)
[2021-08-18 00:41] VITALS: RESP 2
[2021-08-18 05:23] VITALS: BP 131/74; PULSE 74; RESP 20; TEMP 36.2; O2SAT 90
[2021-08-18 05:29] VITALS: RESP 2; RESP 4
[2021-08-18 08:12] VITALS: BP 105/62; PULSE 71; RESP 17; TEMP 36.9; O2SAT 95
[2021-08-18] MEDS: Lisinopril 10 MG TAB 5 MG PO (08:15)
[2021-08-18] MEDS: dilTIAZem CD 120 MG CAPCR PO (08:15)
[2021-08-18 12:07] VITALS: O2SAT 95
--- NOTE | 2021-08-18 13:41 | DSE_ITS ---
Date of service: 08/18/21 Time of Service: 13:41 DS: Diagnosis Discharge Diagnosis (1) COPD (chronic obstructive pulmonary disease): Status: Chronic Discharge Plan Disposition Patient Disposition: AGAINST MEDICAL ADVICE Condition: Stable Discharge Details Reason For Visit: COPD Admit Date/Time: 08/17/21 19:36 Admit Provider: Hayden Corcoran Attending Provider: Hayden Corcoran Primary Care Provider: Sherwin Ceja [facility] Hospital Course Hospital Course: This is a 76 yo female with history of COPD and smoker, atrial fibrillation anticoagulated on xarelto, hypertension, who comes to the ED at [facility] via EMS with c/o shortness of breath for 2-3 days and cough. She has had her vaccinations including booster for covid, her PCR is negative. She was noted to be 84% on room air and on 4L [place] is 98%. Her work up also included a CTA to evaluate for PE vs pneumonia. Her labs were unremarkable, covid negative, CTA shows no PE though does have small bilateral pleural effusions, consolidation in right lower lobe and cardiomegaly. She was still requiring oxygen and was very dyspneic with activity. She received lasix, ceftriaxone/azithromycin in addition to steriods and was admitted to hospitalist services for observation. overnight she remained stable and felt much improved. She was weaned off her oxygen while at rest but with ambulation was desatting into the 70's. She qualifies for home oxygen but adamantly refused to have respiratory set it up upon discharge. I did evaluate her after hearing this and she was able to tell me how her walk test went, desatting, and what the effects of hypoxia were and the recommendations to have home oxygen and ongoing hospitalization for now. She is alert and oriented and demonstrates capacity, and able to verbalize risks and benefits and still declines oxygen and further hospitalization. Her prescriptions have been called into [facility]. She is being discharged to home against medical advice. Dr Sahu notified of her AMA departure. Home Meds and New Rx's Prescriptions: New prednisone 20 mg tablet 40 mg PO DAILY Qty: 10 RF: 0 azithromycin 250 mg tablet 250 mg PO DAILY 4 Days Qty: 4 RF: 0 cefpodoxime 200 mg tablet 200 mg PO BID Qty: 7 RF: 0 Continued Xarelto 20 mg tablet 20 mg PO QPM Qty: 30 RF: 11 diltiazem HCl 120 mg capsule,extended release 24hr 120 mg PO DAILY RF: 0 lisinopril 10 mg tablet 5 mg PO DAILY RF: 0 atorvastatin [Lipitor] 80 mg Tablet 80 mg PO QPM RF: 0 albuterol sulfate [ProAir HFA] 90 mcg/actuation Hfa Aerosol Inhaler 2 puff INHALATION QID PRNRF: 0 ipratropium-albuterol 0.5 mg-3 mg(2.5 mg base)/3 mL Solution For Nebulization 3 ml UPD Q6H PRN PRN (Reason: shortness of breath or wheezing) Qty: 180 RF: 0 Discharge Instructions Instructions: COPD (Chronic Obstructive Pulmonary Disease) (DC) Additional Instructions: continue your antibiotics as directed. you need a dose of both tonight. complete prescription as prescribed even if you feel better drink 6-8 glasses of water to stay well hydrated. return for new or worsening symptoms. You qualify for home oxygen, which you decline at this time. Without adequate oxygen your organs can be damaged. The organs most affected by hypoxia (low oxygen levels) are the brain, the heart, and the liver. If the hypoxia or low oxygen is severe, irreversible damage can begin within as little four minutes of the onset. Coma, seizures, and may occur in severe cases. Chronic, milder hypoxia can also cause damage to the major organs of the body. You are leaving against advice as your oxygen levels are not safe for discharge at this time. you have been provided a pulse oximeter, please check sats daily and when short of breath and report sustained sats below 88% stop smoking. Referrals: Sherwin Ceja [Primary Care Provider] - Activity:: Activity as Tolerated Equipment/Supplies:: No Equipment Needed Diet:: As Tolerated Discharge Orders Discharge Orders: Discharge Order (Routine); Ordered 08/18/21 Ordered By: Tanesha Corral Discharge Data Discharge Date/Time-TO BE ENTERED AT DEPARTURE: 08/18/21 15:13 DS: Summary Time Spent with Patient providing and/or coordinating discharge services: Greater than 30 minutes Status at Discharge Functional status at discharge: independent ambulation Overall status at discharge: patient is not back to baseline Mental Status: mental status grossly normal Speech and Movement: speech and movement normal Mood: congruent mood Affect: normal affect Exam Const General: cooperative, frail appearing and ill appearing (older than stated age) chronically Nutritional Appearance: thin Other: face with significant [place] HENMT Head: normal to inspection, normocephalic and atraumatic Mouth: moist mucous membranes abnormal (slightly dry) Resp Effort & Inspection: abnormal respiratory effort (dyspneic with activity. ) and cough Quality of cough: wet Auscultation: wheezes (diminished througout) Cardio Rate: regular rate Rhythm: regular rhythm Neuro General: patient alert, patient awake, patient oriented x3 and not confused Psych Appearance: grossly normal Mental Status: mental status grossly normal Speech and Movement: speech and movement normal Mood: congruent mood Affect: normal affect Attitude: cooperative Thought Process: normal Thought Content: normal Insight: fair Judgment: fair DS: Data Vitals/I&O Vitals and I&O: Vital Signs Temperature 36.9 C 08/18/21 08:12 Temperature Source Tympanic 08/18/21 08:12 Pulse 71 08/18/21 08:12 Pulse Rhythm Irregular 08/18/21 08:40 Pulse 79 08/17/21 20:00 Respiratory Rate 17 08/18/21 08:12 Respiratory Effort Non-Labored 08/18/21 08:40 Respiratory Depth Normal 08/18/21 08:40 Respiratory Pattern Normal 08/18/21 08:40 Blood Pressure 105/62 08/18/21 08:12 Blood Pressure Mean 95 08/17/21 19:00 Blood Pressure Position Supine 08/17/21 15:22 Pulse Oximetry 95 08/18/21 12:07 Oxygen Delivery Method Nasal Cannula 08/18/21 12:07 Oxygen Flow Rate 1 08/18/21 12:07 Pain Level 0 08/18/21 08:12 Intake & Output 08/17/21 08/18/21 08/18/21 23:59 11:59 23:59 Intake Total 520 / 520 820 / 820 Output Total 300 / 300 550 / 550 Balance 220 / 220 270 / 270 Weight 61.235 kg Intake: IV 320 / 320 20 / 20 Oral 200 / 200 800 / 800 Output: Urine 300 / 300 550 / 550 Other: Urine Color Yellow Yellow Urine Appearance Clear Clear Urine Odor Normal Normal Stool Size Moderate Voiding Methods Toilet Toilet Data Completed and Pending Labs on day of discharge: Labs from last 24 hours 08/17/21 08/17/21 08/17/21 19:00 16:40 15:40 WBC RBC Hgb Hct MCV MCH MCHC RDW Plt Count MPV Immature Gran % Neutrophils % Lymphocytes % Monocytes % Eosinophils % Basophils % Nucleated RBC % Absolute Neutrophils Absolute Lymphocytes Absolute Monocytes Absolute Eosinophils Absolute Basophils PT 13.4 H INR 1.3 H APTT 28.5 H VBG pH VBG pCO2 VBG pO2 VBG HCO3 VBG Total CO2 VBG O2 Saturation VBG Base Excess Sodium Potassium Chloride Carbon Dioxide Anion Gap BUN Creatinine Estimated GFR/1.73 m2 Glucose Calcium Magnesium Total Bilirubin AST ALT Alkaline Phosphatase Troponin I < 0.05 NT-Pro-B Natriuret Pep Total Protein Albumin TSH Urine Color Urine Clarity Urine pH Ur Specific [place] Urine Protein Urine Ketones Urine Blood Urine Nitrite Urine Bilirubin Urine Urobilinogen Ur Leukocyte Esterase Urine Glucose COVID-19 Source Nasal/Nares SARS-CoV-2 (PCR) Negative 08/17/21 08/17/21 08/17/21 15:35 14:57 14:57 WBC 6.39 RBC 4.97 Hgb 15.7 Hct 49.2 H MCV 99.0 H MCH 31.6 MCHC 31.9 L RDW 16.2 H Plt Count 176 MPV 11.0 Immature Gran % 0.5 Neutrophils % 63.0 Lymphocytes % 24.4 Monocytes % 10.6 Eosinophils % 0.6 Basophils % 0.9 Nucleated RBC % 0 Absolute Neutrophils 4.02 Absolute Lymphocytes 1.56 Absolute Monocytes 0.68 Absolute Eosinophils 0.04 Absolute Basophils 0.06 PT INR APTT VBG pH VBG pCO2 VBG pO2 VBG HCO3 VBG Total CO2 VBG O2 Saturation VBG Base Excess Sodium Potassium Chloride Carbon Dioxide Anion Gap BUN Creatinine Estimated GFR/1.73 m2 Glucose Calcium Magnesium Total Bilirubin AST ALT Alkaline Phosphatase Troponin I NT-Pro-B Natriuret Pep 4065 H Total Protein Albumin TSH 2.02 Urine Color Pending Urine Clarity Pending Urine pH Pending Ur Specific [place] Pending Urine Protein Pending Urine Ketones Pending Urine Blood Pending Urine Nitrite Pending Urine Bilirubin Pending Urine Urobilinogen Pending Ur Leukocyte Esterase Pending Urine Glucose Pending COVID-19 Source SARS-CoV-2 (PCR) 08/17/21 08/17/21 14:57 14:57 WBC RBC Hgb Hct MCV MCH MCHC RDW Plt Count MPV Immature Gran % Neutrophils % Lymphocytes % Monocytes % Eosinophils % Basophils % Nucleated RBC % Absolute Neutrophils Absolute Lymphocytes Absolute Monocytes Absolute Eosinophils Absolute Basophils PT INR APTT VBG pH 7.30 L VBG pCO2 73 H* VBG pO2 51 VBG HCO3 36 H VBG Total CO2 32 H VBG O2 Saturation 83 VBG Base Excess 10 H Sodium 141 Potassium 4.3 Chloride 103 Carbon Dioxide 34.6 H Anion Gap 3.4 BUN 12 Creatinine 0.6 Estimated GFR/1.73 m2 >= 60.00 Glucose 103 Calcium 8.7 Magnesium 2.1 Total Bilirubin 0.5 AST 22 ALT 30 Alkaline Phosphatase 106 Troponin I < 0.05 NT-Pro-B Natriuret Pep Total Protein 6.8 Albumin 3.2 L TSH Urine Color Urine Clarity Urine pH Ur Specific [place] Urine Protein Urine Ketones Urine Blood Urine Nitrite Urine Bilirubin Urine Urobilinogen Ur Leukocyte Esterase Urine Glucose COVID-19 Source SARS-CoV-2 (PCR) 08/17/21 16:30 Blood Blood Culture - Pending 08/17/21 16:40 Blood Blood Culture - Pending Preliminary micro results at discharge 08/17/21 16:30 Blood Culture - Pending Blood 08/17/21 16:40 Blood Culture - Pending Blood [facility] Active Problem List Hypoxia (Acute) Shortness of breath (Acute) CHF (congestive heart failure) (Chronic) DVT prophylaxis (Acute) Discharge planning issues (Acute) HTN (hypertension) (Chronic) Atrial fibrillation (Chronic) Smoker (Acute) COPD (chronic obstructive pulmonary disease) (Chronic) Lung mass (Acute) Medical History Atrial fibrillation COPD (chronic obstructive pulmonary disease) HTN (hypertension) Hypercholesteremia Lung cancer Lung mass Smoker Family History Father Hemochromatosis Cirrhosis due to hemochromatosis Diabetes Daughter Heart disease [place] in 40s Social History Smoking/Tobacco Use Status: Current every day Tobacco Type: cigarettes Years smoked: 50 Quit status: considering quitting Counseling given: patient declined Smoking risk assessment performed?: Yes Alcohol Intake: never Drug use: Never Substance use type: does not use What type of physical activity do you participate in: none
[2021-08-18 14:24] LABS: Procalcitonin < 0.1 ng/mL
--- NOTE | 2021-08-18 15:52 | RESPIRATORY ---
RT performed exercise oximetry test on patient. Patient normally does not use any O2 at home. During walk, pt did a total of about 350 feet and desaturated to 78% on room air. Nurse and provider were made aware of results. Pt was made aware of her need for O2 therapy and the benefits it could provide her. O2 setup in the home was refused at this time. RT advised patient that if she changed her mind in the future, she could contact her PCP to set up oxygen therapy in the home, and that they could perform a similar test to this to qualify her with a [employer]. Pt was understanding of this.
--- NOTE | 2021-08-18 18:30 | PDOC.CMPRO ---
- If Service Date Differs Date of service: 08/18/21 Time of Service: 18:31 Care Management Progress Note S/O: Siomara was sitting up in her chair when CM met with her. She reported that she is feeling much better today and is hoping to return home. She stated that she is expecting to be discharged today. She told CM that she lives alone, as her years ago, but she has family that visits often, especially her grand daughter, who is looking after her two pugs today. She stated that she has two children, seven grand children, and five great grand children. She is retired, but worked several different occupations over the years, keeping busy. She reported that she is independent at baseline, and is able to care for herself, declining home health services. Later, LEATHA was informed that Siomara was leaving AMA. CM met with Siomara again, to determine if her needs are being met at [facility]. She stated that she is not interested in home O2 (which was recommended by RT), and she feels that she is well enough to be home. Siomara left AMA, but stated that she would return if she felt it necessary. A: Siomara is a 76 year old female admitted to [facility] on 08/17/21 for COPD. P: Siomara left AMA today. Her grand daughter picked her up via private vehicle. She will follow up with her PCP and discharge plan of care.
== END 2021-08-18 15:13 | disposition left against medical advice (07) ==
LOC: ER 19:44 → MS 08-18 10:51
PROVIDERS: Nurse Practitioner Acute Care; Admitting Provider General Practice; Emergency Provider Emergency Medicine; PCP Family Medicine; Visit Provider General Practice
DX: J44.0 Chronic obstructive pulmonary disease with (acute) lower respiratory infection (principal); J44.1 Chronic obstructive pulmonary disease with (acute) exacerbation; J18.9 Pneumonia, unspecified organism; Z66 Do not resuscitate; I11.0 Hypertensive heart disease with heart failure; I50.9 Heart failure, unspecified; I48.91 Unspecified atrial fibrillation; F17.210 Nicotine dependence, cigarettes, uncomplicated; R09.02 Hypoxemia; E78.00 Pure hypercholesterolemia, unspecified; C34.90 Malignant neoplasm of unspecified part of unspecified bronchus or lung; Z20.822 Contact with and (suspected) exposure to COVID-19
CPT/HCPCS: 36415; 71275; 80053; 82805; 84145; 87040; 87635; 93005; 94640; 96365; 96368; 96375; 99285; 81003; 83735; 83880; 84443; 84484; 85025; 85610; 85730; 93010; 99217; 99219; G0378; J0456; J1941; J2930; J3490; J7620

== ENCOUNTER 2021-08-19 17:06 | Inpatient (IN) | payer MEDICARE, SELFPAY ==
[2021-08-19] VITALS (25 sets, daily range): BP systolic 48–174; BP diastolic 20–78; PULSE 72–93; RESP 2–43; TEMP 36.9–37; O2SAT 86–100
--- NOTE | 2021-08-19 17:21 | ED.GENADUL_ITS ---
Discharge Plan Disposition Patient Disposition: [facility] INPATIENT Condition: Stable Discharge Details Clinical Impression: Acute exacerbation of chronic obstructive pulmonary disease, Hypoxia, Acute exacerbation of congestive heart failure, Requires supplemental oxygen Admit Date/Time: 08/19/21 18:53 Admit Provider: Maninder Haskins Attending Provider: Maninder Haskins Primary Care Provider: Sherwin Ceja ED Provider: Karin Brooks Discharge Data Discharge Date/Time-TO BE ENTERED AT DEPARTURE: 08/19/21 20:56 Medical Decision Making 76-year-old female with a history of atrial fibrillation on Xarelto, COPD, CHF, hypertension, hyperlipidemia, chronic tobacco smoker presents after referred from the [facility] office for worsening dyspnea on exertion and hypoxia with oxygen saturation mid 70s on room air. Patient was admitted 2 days ago for COPD/CHF exacerbation and possible pneumonia but must on the floor yesterday AMA and declined oxygen for home. Patient states she does not recall declining oxygen for home. Her oxygen sat uration here is mid 80s on room air, increases to 93% on 2 L. She has wet breath sounds and diffuse wheezing and crackles throughout. No lower extremity edema. Patient reports that she is a full code. Differential diagnosis includes COPD versus CHF exacerbation, worsening pneumonia, coronavirus. Will place an IV, screening labs, check x-ray, Covid swab and give duo nebs, steroids and Lasix an d reassess. Labs and imaging reviewed. White blood cell count 11. Hemoglobin 16. Potassium 5.2. Troponin negative. BNP 2778 which is decreased compared to 4065 two days ago. Chest x-ray notes small bilateral pleural effusions. EKG noted a rate of 83, A. fib, no STEMI and no significant change from previous. Lasix will likely help with hyperkalemia. As there are no EKG changes, do not see an additional treatment for hypokalemia. Case discussed with hospitalist who accepts patient for admission for neb, steroids and as she is requiring supplemental oxygen and likely will require oxygen for home. Medical Records Medical records reviewed: Yes I reviewed the patient's medical records. Imaging Data Radiologic Study: Radiologist's impression: XR Chest Exam date and time: 08/19/2021 5:39 PM Age: 76 years old Clinical indication: Patient HX: Cough; SOB TECHNIQUE: Imaging protocol: XR of the chest. Views: 2 views. COMPARISON: CT CHEST PE CTA 08/17/2021 5:22 PM FINDINGS: Lungs: Band like opacity left mid lung likely represent atelectasis or scar. No convincing consolidation. Pleural spaces: Small bilateral pleural effusions. No pneumothorax. Heart/Mediastinum: Cardiomediastinal silhouette within normal limits. Bones/joints: Osteopenia. No acute displaced fracture. IMPRESSION: Small bilateral pleural effusions. Lab Data Lab results reviewed: Yes I reviewed the patient's lab results. Labs: Laboratory Tests Range/Units 08/19/21 08/19/21 08/19/21 17:45 17:48 17:48 WBC (4.4-10.8) 10^3/uL 11.74 H RBC (3.93-5.22) 10^6/uL 5.25 H Hgb (11.2-15.7) g/dL 16.0 H Hct (36.0-46.0) % 51.6 H MCV (80-95) fL 98.3 H MCH (27.0-33.0) pg 30.5 MCHC (32.0-36.0) % 31.0 L RDW (11.7-14.6) % 16.1 H Plt Count (130-400) 10^3/uL 190 MPV (8.0-11.0) fL 10.4 Immature Gran % 0.3 Neutrophils % 93.9 Lymphocytes % 3.2 Monocytes % 2.4 Eosinophils % 0.1 Basophils % 0.1 Nucleated RBC % % 0 Absolute Neutrophils (1.2-6.7) 10^3/uL 11.02 H Absolute Lymphocytes (1.2-3.4) 10^3/uL 0.38 L Absolute Monocytes (0.1-0.8) 10^3/uL 0.28 Absolute Eosinophils (0.0-0.7) 10^3/uL 0.01 Absolute Basophils (0.0-0.2) 10^3/uL 0.01 Sodium (136-145) mmol/L 137 Potassium (3.5-5.1) mmol/L 5.2 H D Chloride (98-107) mmol/L 98 Carbon Dioxide (21.0-32.0) mmol/L 38.3 H Anion Gap (3-11) mmol/L 0.7 L BUN (7-18) mg/dL 27 H D Creatinine (0.55-1.02) mg/dL 0.7 Estimated GFR/1.73 m2 (mL/min/1.73m2) >= 60.00 Glucose (74-106) mg/dL 124 H Calcium (8.5-10.1) mg/dL 9.3 Magnesium (1.8-2.4) mg/dL 2.3 Total Bilirubin (0.2-1.0) mg/dL 0.6 AST (15-37) U/L 18 ALT (14-59) U/L 25 Alkaline Phosphatase (46-116) U/L 95 Troponin I (<0.06) ng/mL < 0.05 NT-Pro-B Natriuret Pep (<300) pg/mL 2778 H Total Protein (6.4-8.2) g/dL 7.1 Albumin (3.4-5.0) g/dL 3.7 COVID-19 Source Nasal/Nares ECG Data Attestation: I personally reviewed and interpreted this ECG (s) as follows: Interpretation: Rate of 83, A. fib, no STEMI. No significant change from previous. HPI General Mode of arrival: ambulatory . Date/Time Provider Initiated Documentation: 08/19/21 17:06 . Limitations to Documentation: no limitations . Information obtained by: patient . HPI Narrative: Patient is a 76-year-old female with a history of atrial fibrillation on Xarelto, CHF, COPD, smoker presents for reevaluation per Dr. Ceja for shortness of breath after she left AMA from the floor yesterday for a COPD/CHF exacerbation and possible pneumonia. Dr. Ceja reported that her O2 sat was 76 on room air in the office and 70s on room air at home. Her Covid was negative at that time. Her CT chest was negative for PE but did note bilateral pleural effusions suspicious for chf and a questionable RLL pneumonia. Patient states she thought she was feeling better yesterday so she left AMA. She states she does not recall being offered oxygen upon leaving AMA but the discharge summary notes that patient declined oxygen for home. She was sent with 2 antibiotic prescriptions and a steroid prescription which she states she has been taking. She states her shortness of breath is worse with exertion. She admits to a productive cough which is occasionally blood-tinged. She denies any fever and states she has had a normal appetite. Patient states she has been unable to smoke any cigarettes for the past 4 days. Related Data Home Medications Medication Instructions Recorded Confirmed albuterol sulfate [ProAir HFA] 2 puff INHALATION QID PRN 11/09/18 08/19/21 atorvastatin [Lipitor] 80 mg PO QPM 11/09/18 08/19/21 ipratropium-albuterol 3 ml UPD Q6H PRN PRN #180 ml 11/16/18 08/19/21 rivaroxaban 20 mg tablet 20 mg PO QPM #30 tab 03/14/19 08/19/21 diltiazem HCl 120 mg 120 mg PO DAILY 09/21/19 08/19/21 capsule,extended release 24 hr lisinopril 10 mg tablet 5 mg PO DAILY tab 03/18/20 08/19/21 azithromycin 250 mg PO DAILY 4 Days #4 tab 08/18/21 08/19/21 prednisone 40 mg PO DAILY #10 tab 08/18/21 08/19/21 cefpodoxime 200 mg PO BID #14 tab 08/21/21 furosemide [Lasix] 20 mg PO DAILY@1400 #30 tab 08/21/21 pantoprazole 40 mg PO DAILY@0730 #30 tab 08/21/21 Previous Rx's Medication Instructions Recorded ipratropium-albuterol 3 ml UPD Q6H PRN PRN #180 ml 11/16/18 rivaroxaban 20 mg tablet 20 mg PO QPM #30 tab 03/14/19 azithromycin 250 mg PO DAILY 4 Days #4 tab 08/18/21 prednisone 40 mg PO DAILY #10 tab 08/18/21 cefpodoxime 200 mg PO BID #14 tab 08/21/21 furosemide [Lasix] 20 mg PO DAILY@1400 #30 tab 08/21/21 pantoprazole 40 mg PO DAILY@0730 #30 tab 08/21/21 Allergies Allergy/AdvReac Type Severity Reaction Status Date / Time No Known Allergies Allergy Unverified 08/19/21 18:05 General Stated Complaint: RespSymp BOGDAN: 2 Review of Systems All systems reviewed & are unremarkable except as noted in HPI and below Constitutional Constitutional: Reports as per HPI, Denies chills and Denies fever(s) Eyes Eyes: Denies blurry vision ENT Ears, Nose, Mouth, and Throat: Denies dizziness, Denies sore throat and Denies throat swelling Cardiovascular Cardiovascular: Denies chest pain and Reports dyspnea Respiratory Respiratory: Reports cough and Reports dyspnea Gastrointestinal Gastrointestinal: Denies abdominal pain, Denies diarrhea and Denies vomiting Genitourinary Genitourinary: Denies hematuria and Denies dysuria Musculoskeletal Musculoskeletal: Denies back pain and Denies numbness Integumentary/Breasts Skin/Breast: Denies lesions and Denies rash Neurologic Neurologic: Denies dizziness, Denies localized weakness and Denies numbness Allergic/Immunologic Allergic/Immunologic: Denies throat swelling PFSH Medical History Atrial fibrillation COPD (chronic obstructive pulmonary disease) HTN (hypertension) Hypercholesteremia Lung cancer Lung mass Smoker Family History Father Hemochromatosis Cirrhosis due to hemochromatosis Diabetes Daughter Heart disease [place] in 40s Social History Smoking/Tobacco Use Status: Current every day Tobacco Type: cigarettes Years smoked: 50 Quit status: considering quitting Counseling given: patient declined Smoking risk assessment performed?: Yes Alcohol Intake: never Drug use: Never Substance use type: does not use What type of physical activity do you participate in: none Do you feel safe at home: Yes Do you feel safe in your relationship?: Yes Exam Const General: cooperative and no acute distress HENMT Head: normal to inspection Face and sinus: normal facial exam Mouth: mucous membranes dry Eyes General: appearance normal, both eyes and all related structures Pupils: PERRL EOM: EOM intact bilaterally Neck Neck: normal visual inspection and No submandibular swelling Lymphatic: no lymphadenopathy noted Chest Chest: normal inspection of the chest and no tenderness Resp Effort & Inspection: normal respiratory effort and able to speak in complete sentences Auscultation: crackles bilaterally throughout, rhonchi upper bilaterally and lower bilaterally and wheezes expiratory wheezes and inspiratory wheezes Cardio Rate: regular rate Rhythm: regular rhythm GI Inspection: normal to inspection Palpation: soft, not firm, not rigid and nontender Auscultation: no hypoactive bowel sounds Skin General skin exam: no rashes or lesions noted Neuro General: patient alert, patient awake and patient oriented x3 Cognition: normal cognition Speech: speech normal Motor: muscle tone normal throughout Sensory Exam: no sensory deficits noted Extrem General: normal to inspection, full ROM, capillary refill normal, no calf tenderness bilaterally and no edema Psych Appearance: grossly normal Mental Status: mental status grossly normal Speech and Movement: speech and movement normal Affect: normal affect Course Vital Signs Vital signs: Vital Signs Temperature 98.6 F 08/19/21 17:14 Pulse 87 08/19/21 17:14 Blood Pressure 174/67 H 08/19/21 17:14 Pulse Oximetry 86 L 08/19/21 17:14 Temperature 98.6 F 08/19/21 17:14 Temperature Source Temporal Artery Scan 08/19/21 17:14 Pulse 87 08/19/21 17:14 Blood Pressure 174/67 H 08/19/21 17:14 Blood Pressure Position Sitting 08/19/21 17:14 Pulse Oximetry 86 L 08/19/21 17:14 Oxygen Delivery Method Room Air 08/19/21 17:14 Oxygen Flow Rate 0 08/19/21 17:14 Pain Level 0 08/19/21 17:14
--- NOTE | 2021-08-19 17:30 | DI.RAD_ITS ---
Exam(s) XR CHEST 2V PA LATERAL EXAM: XR CHEST 2V PA LATERAL CLINICAL HISTORY: cough, sob, r/o acute disease. TECHNIQUE: 2D digital imaging was performed. COMPARISON: CR XR PORTABLE CHEST AP from 11/16/2018 FINDINGS: There is mild cardiomegaly again noted. Calcified aortic arch again noted. No mediastinal widening. Right lung is clear. Platelike atelectasis noted in the mid left lung field. Also blunting of both costophrenic angles consistent with small bilateral pleural effusions, not previously present. IMPRESSION: Small bilateral pleural effusions.Platelike atelectasis in the mid left lung, more so than previous. DATA REPOSITORY: RADIATION DOSE DELIVERED:
--- NOTE | 2021-08-19 17:45 | RT.EKG_ITS ---
APPROVED REPORT Exam: Resting ECG Reason for Exam: shortness of breath Patient Location: E HR:83 bpm ECG Measurements Heart Rate 83 AXIS WI [id number] P [id number] QRSd 75 QRS 84 QT 384 T 27 QTc 453 Conclusion Atrial fibrillation...V-rate 72- 99, irreg A-activity Anterior infarct, old...Q >40mS, abnormal ST-T, V2-V5. Afib. No significant change from previous. No STEMI. I have reviewed and interpreted ECG and agree with software generated interpretation.
[2021-08-19 17:53] LABS: Source Nasal/Nares
[2021-08-19 18:05] LABS: Abs Immature Grans 0.03 10^3/uL (0.0-0.06); Absolute Basophil Count 0.01 10^3/uL (0.0-0.2); Absolute Eosinophil Count 0.01 10^3/uL (0.0-0.7); Absolute Lymphocyte Count 0.38 10^3/uL (1.2-3.4); Absolute Monocyte Count 0.28 10^3/uL (0.1-0.8); Basophils % 0.1; Eosinophils % 0.1; HCT 51.6 % (36.0-46.0); Immature Grans % 0.3; Lymphocytes % 3.2; MCH 30.5 pg (27.0-33.0); MCV 98.3 fL (80-95); MPV 10.4 fL (8.0-11.0); Monocytes % 2.4; Neutrophils % 93.9; Nucleated RBC 0 %; Platelet Count 190 10^3/uL (130-400); RBC 5.25 10^6/uL (3.93-5.22); RDW 16.1 % (11.7-14.6); WBC 11.74 10^3/uL (4.4-10.8)
[2021-08-19 18:07] LABS: Absolute Neutrophil Count 11.02 10^3/uL (1.2-6.7)
[2021-08-19 18:22] LABS: ALT 25 U/L (14-59); AST 18 U/L (15-37); Albumin 3.7 g/dL (3.4-5.0); Alkaline Phosphatase 95 U/L (46-116); Anion Gap 0.7 mmol/L (3-11); BUN 27 mg/dL (7-18); Bilirubin, Total 0.6 mg/dL (0.2-1.0); CO2 38.3 mmol/L (21.0-32.0); CREATININE 0.7 mg/dL (0.55-1.02); Calcium 9.3 mg/dL (8.5-10.1); Chloride 98 mmol/L (98-107); Glucose 124 mg/dL (74-106); Magnesium 2.3 mg/dL (1.8-2.4); NT-proBNP 2778 pg/mL (<300); Potassium 5.2 mmol/L (3.5-5.1); Sodium 137 mmol/L (136-145); Total Protein 7.1 g/dL (6.4-8.2)
[2021-08-19] MEDS: Furosemide 40 MG/4 ML VIAL IVP (18:23)
[2021-08-19 18:24] LABS: Troponin I < 0.05 ng/mL (<0.06)
[2021-08-19] MEDS: Albuterol/Ipratropium 3 ML UPD VIAL UPD ×2 (18:24→21:40)
[2021-08-19] MEDS: methylPREDNISolone SUCC 125 MG VIAL IVP (18:26)
--- NOTE | 2021-08-19 18:27 | DI.VRAD_ITS ---
PROCEDURE INFORMATION: Exam: XR Chest Exam date and time: 08/19/2021 5:39 PM Age: 76 years old Clinical indication: Patient HX: Cough; SOB TECHNIQUE: Imaging protocol: XR of the chest. Views: 2 views. COMPARISON: CT CHEST PE CTA 08/17/2021 5:22 PM FINDINGS: Lungs: Band like opacity left mid lung likely represent atelectasis or scar. No convincing consolidation. Pleural spaces: Small bilateral pleural effusions. No pneumothorax. Heart/Mediastinum: Cardiomediastinal silhouette within normal limits. Bones/joints: Osteopenia. No acute displaced fracture. IMPRESSION: Small bilateral pleural effusions. Dictated and Authenticated by: Holden Burnett MD. Ordering:SREE Frazier MD
[2021-08-19 20:28] LABS: COVID-19 PCR Negative (Negative)
[2021-08-19] MEDS: Azithromycin 250 MG TAB PO (20:37)
--- NOTE | 2021-08-19 21:00 | W.PM.HP.N ---
Date of service: 08/19/21 Time of Service: 21:00 Assessment and Plan Assessment and plan (1) Acute exacerbation of chronic obstructive pulmonary disease: Status: Acute Assessment and plan: Exacerbated by ongoing smoking and possibly pneumonia. Cont antibiotics initiated during recent admission; azithromycin 250mg daily and cefpodoxime 200mg BID. Duonebs Q6H and prn nebulized albuterol. Given solumedrol 125mg IV in the ED. Cont prednisone 40mg po daily starting in the AM. Consider LABB/steroid combination. (2) Acute exacerbation of congestive heart failure: Status: Acute Assessment and plan: Improved NTProBNP compared to 08/17/21. Given lasix 40mg IV in the ED. Will cont 40mg daily for short term with decision to be made to continue or not. . Low NA diet. Echocardiogram ordered. Last Echo in [facility] records was on 11/13/18: EF of 60-65%. Mild mitral regurgitation. Severely dilated R and L atrium. Pulmonary systolic pressure in the range of 45mmHg to 55mmHg (3) Acute respiratory failure with hypoxia and hypercapnia: Status: Acute Assessment and plan: Requiring supplemental O2 particularly with exertion. Monitor and admust. (4) HTN (hypertension): Status: Chronic Assessment and plan: On Diltiazem and Lisinopril. Hold lisinopril for short run d/t mild hyperkalemia. Hyperkalemia not noted at last admission. Will likely lower with diuretic. Monitor. Qualifiers: Hypertension type: essential hypertension Qualified Code(s): I10 - Essential (primary) hypertension (5) Atrial fibrillation: Status: Chronic Assessment and plan: Rate controlled on Diltiazem. Cont Xarelto for AC. Telemetry. Qualifiers: Atrial fibrillation type: permanent Qualified Code(s): I48.2 - Chronic atrial fibrillation (6) Smoker: Status: Acute Assessment and plan: NIcotine replacement offered. Encourage cessation. (7) Hyperkalemia: Status: Acute Assessment and plan: No previous hyperkalemia noted in [facility] records. LIkely will respond to lasix. Monitor. (8) Weakness of both legs: Status: Acute Assessment and plan: Concerning for PAD. Recommend outpt w/u beginning with REHANA's. Risk factors for atherosclerotic disease; smoking, HTN. Nuc Med stress test in 2014; No perfusion defects. Stress ECG was borderline. Repeat Nuc Med stress testing would be appropriate as well. History of Present Illness History of Present Illness Chief Complaint: Shortness of breath Narrative: This is a 76 yo female with a PMH of COPD, tobacco abuse disorder, atrial fibrillation on Xarelto, HFpEF, HTN. She poresented to the ED from her PCP, Dr. Ceja's officefor ongoing shortness of breath. She was admitted to [facility] on 08/17/21 for COPD/CHF exacerbations as well as possible pneumonia. She left AMA but was given prescriptions for prednisone and antibiotics. In Dr Ceja's office her RA O2 saturations was 76% which coincided with what she reported from home. Her previous workup included a negative COVID test and a CT chest that was negative for pulmonary emboli. She did have bilateral pleural effusions and a questionable RLL pneumonia. She reportedly refused home O2. Her resting O2 saturations were normal but with activity it decreased into the 70's. In the ED at time of this presentation her O2 saturations on RA were in the mid 80's. On 2L her sat. increaed to 93%. She was noted to have diffuse wheezes and crackles throughout. No pedal edema noted. WBC count of 11.0. Troponin neg. BNP 2778; down from 4065 2 days prior. CXR showed small bilateral pleural effusions. EKG showed afib with rate in the 80's. K elevated at 5.2. Oral lasix, nebulizer txs and IV solumedrol 125mg administered. She denied CP/palpitations, sputum, N/V/abd pain. No fever/chills/joint or muscle aches. She does report easily fatiguable BLEs; has to stop and rest periodically when ambulating. Review of Systems All systems reviewed & are unremarkable except as noted in HPI and below [facility] Active Problem List (Updated 08/19/21 @ 21:35 by Maninder Haskins MD) Weakness of both legs (Acute) Hyperkalemia (Acute) Acute respiratory failure with hypoxia and hypercapnia (Acute) Acute exacerbation of chronic obstructive pulmonary disease (Acute) Hypoxia (Acute) Acute exacerbation of congestive heart failure (Acute) Requires supplemental oxygen (Acute) Hypoxia (Acute) Shortness of breath (Acute) CHF (congestive heart failure) (Chronic) DVT prophylaxis (Acute) Discharge planning issues (Acute) HTN (hypertension) (Chronic) Atrial fibrillation (Chronic) Smoker (Acute) COPD (chronic obstructive pulmonary disease) (Chronic) Lung mass (Acute) Medical History Atrial fibrillation COPD (chronic obstructive pulmonary disease) HTN (hypertension) Hypercholesteremia Lung cancer Lung mass Smoker Family History Father Hemochromatosis Cirrhosis due to hemochromatosis Diabetes Daughter Heart disease [place] in 40s Social History Smoking/Tobacco Use Status: Current every day Tobacco Type: cigarettes Years smoked: 50 Quit status: considering quitting Counseling given: patient declined Smoking risk assessment performed?: Yes Alcohol Intake: never Drug use: Never Substance use type: does not use What type of physical activity do you participate in: none Do you feel safe at home: Yes Do you feel safe in your relationship?: Yes Meds Allergies and Home Medications Allergies Allergy/AdvReac Type Severity Reaction Status Date / Time No Known Allergies Allergy Unverified 08/19/21 18:05 Home Medications Medication Instructions Recorded Confirmed Type albuterol sulfate [ProAir HFA] 2 puff INHALATION QID PRN 11/09/18 08/19/21 History atorvastatin [Lipitor] 80 mg PO QPM 11/09/18 08/19/21 History ipratropium-albuterol 3 ml UPD Q6H PRN PRN #180 ml 11/16/18 08/19/21 Rx rivaroxaban 20 mg tablet 20 mg PO QPM #30 tab 03/14/19 08/19/21 Rx diltiazem HCl 120 mg 120 mg PO DAILY 09/21/19 08/19/21 History capsule,extended release 24 hr lisinopril 10 mg tablet 5 mg PO DAILY tab 03/18/20 08/19/21 History azithromycin 250 mg PO DAILY 4 Days #4 tab 08/18/21 08/19/21 Rx cefpodoxime 200 mg PO BID #7 tab 08/18/21 08/19/21 Rx prednisone 40 mg PO DAILY #10 tab 08/18/21 08/19/21 Rx Exam Narrative Exam Narrative: Somewhat frail appearing female sitting on edge of bed. Pleasant and conversant. Const General: cooperative, no acute distress and not diaphoretic Nutritional Appearance: average body habitus Orientation: alert and oriented x3 HENMT Head: normocephalic and atraumatic Ears: hearing grossly normal bilaterally Mouth: oral mucosae normal Eyes Sclera: sclerae normal Pupils: PERRL Neck Neck: normal visual inspection and no JVD Resp Effort & Inspection: normal respiratory effort Auscultation: wheezes expiratory wheezes (Coarse) Cardio Rate: regular rate Rhythm: abnormal rhythm irregularly irregular GI Palpation: soft and nontender Skin General skin exam: no rashes or lesions noted Extrem General: no pedal edema, no calf tenderness and cyanosis (distal lower exts/feet) Psych Appearance: grossly normal Mental Status: mental status grossly normal Speech and Movement: speech and movement normal Affect: normal affect Results Labs Result diagrams: 08/19/21 17:48 08/19/21 17:48 Labs: Laboratory Results - last 24 hr 08/19/21 08/19/21 08/19/21 17:45 17:48 17:48 WBC 11.74 H RBC 5.25 H Hgb 16.0 H Hct 51.6 H MCV 98.3 H MCH 30.5 MCHC 31.0 L RDW 16.1 H Plt Count 190 MPV 10.4 Immature Gran % 0.3 Neutrophils % 93.9 Lymphocytes % 3.2 Monocytes % 2.4 Eosinophils % 0.1 Basophils % 0.1 Nucleated RBC % 0 Absolute Neutrophils 11.02 H Absolute Lymphocytes 0.38 L Absolute Monocytes 0.28 Absolute Eosinophils 0.01 Absolute Basophils 0.01 Sodium 137 Potassium 5.2 H D Chloride 98 Carbon Dioxide 38.3 H Anion Gap 0.7 L BUN 27 H D Creatinine 0.7 Estimated GFR/1.73 m2 >= 60.00 Glucose 124 H Calcium 9.3 Magnesium 2.3 Total Bilirubin 0.6 AST 18 ALT 25 Alkaline Phosphatase 95 Troponin I < 0.05 NT-Pro-B Natriuret Pep 2778 H Total Protein 7.1 Albumin 3.7 COVID-19 Source Nasal/Nares SARS-CoV-2 (PCR) Negative Last Vital Signs Temp 37.0 C 08/19/21 17:14 Pulse 75 08/19/21 20:16 Resp 23 08/19/21 20:16 BP 138/58 L 08/19/21 20:16 Pulse Ox 98 08/19/21 20:16
[2021-08-19] MEDS: Cefpodoxime 200 MG TAB PO (22:09)
[2021-08-20] VITALS (11 sets, daily range): BP systolic 99–134; BP diastolic 63–79; PULSE 50–81; RESP 1–18; TEMP 36–36.9; O2SAT 84–96
[2021-08-20] MEDS: Albuterol/Ipratropium 3 ML UPD VIAL UPD ×4 (04:19→21:11)
[2021-08-20 07:45] LABS: Abs Immature Grans 0.02 10^3/uL (0.0-0.06); Absolute Basophil Count 0.01 10^3/uL (0.0-0.2); Absolute Lymphocyte Count 0.33 10^3/uL (1.2-3.4); Absolute Monocyte Count 0.17 10^3/uL (0.1-0.8); Absolute Neutrophil Count 7.41 10^3/uL (1.2-6.7); Basophils % 0.1; HCT 52.1 % (36.0-46.0); HGB 16.1 g/dL (11.2-15.7); Immature Grans % 0.3; Lymphocytes % 4.2; MCH 30.8 pg (27.0-33.0); MCHC 30.9 % (32.0-36.0); MCV 99.6 fL (80-95); MPV 11.1 fL (8.0-11.0); Monocytes % 2.1; Neutrophils % 93.3; Nucleated RBC 0 %; Platelet Count 179 10^3/uL (130-400); RBC 5.23 10^6/uL (3.93-5.22); RDW-SD 59.7 fL; WBC 7.94 10^3/uL (4.4-10.8)
[2021-08-20] MEDS: Furosemide 40 MG/4 ML VIAL IVP (08:10)
[2021-08-20] MEDS: predniSONE 20 MG TAB 40 MG PO (08:10)
[2021-08-20] MEDS: Azithromycin 250 MG TAB PO (08:10)
[2021-08-20 08:21] LABS: Anion Gap 0.4 mmol/L (3-11); BUN 25 mg/dL (7-18); CO2 41.6 mmol/L (21.0-32.0); CREATININE 0.6 mg/dL (0.55-1.02); Calcium 9.1 mg/dL (8.5-10.1); Chloride 98 mmol/L (98-107); Glucose 127 mg/dL (74-106); Potassium 4.9 mmol/L (3.5-5.1); Sodium 140 mmol/L (136-145)
--- NOTE | 2021-08-20 08:30 | DI.US_ITS ---
APPROVED REPORT EXAM: Comprehensive 2D, Doppler, and color-flow Echocardiogram Patient Location: In-Patient Pharmacist Hospital: [facility] ([facility]) Indications: CHF, Acute respiratory failure Other Information Study Quality: Adequate Conclusion Normal left ventricular wall thickness and chamber size. Estimated ejection fraction is 60%. There are no segmental wall motion abnormalities The right ventricle is mildly dilated. Right ventricular systolic function appears normal The left atrium is mildly to moderately dilated. The right atrium is severely dilated. Trileaflet aortic valve without stenosis or regurgitation Mild mitral annular calcification. Mild mitral regurgitation Normal tricuspid valve with moderate regurgitation. Estimated right ventricular systolic pressure is 63 mmHg Normal pulmonic valve with moderate regurgitation Wall motion Left Ventricle The left ventricle is normal size. The left ventricular systolic function is normal. The left ventric ular ejection fraction is within the normal range. There is normal left ventricular wall thickness. T here is normal LV segmental wall motion. There is no ventricular septal defect visualized. LVEF is 60 %. Right Ventricle Right ventricle is mildly dilated. The right ventricular systolic function is normal. The RVSP is 62. 7 mmHg. Atria Left atrium is mild to moderately dilated. Right atrium is severely dilated. The interatrial septum i s intact with no evidence for an atrial septal defect. Aortic Valve The aortic valve is normal in structure. Aortic valve is trileaflet. There is no aortic valvular sten osis. No aortic regurgitation is present. Mitral Valve Mild mitral annular calcification. No evidence of mitral valve stenosis. Mild mitral regurgitation. Tricuspid Valve The tricuspid valve is normal in structure. There is no tricuspid valve stenosis. Moderate tricuspid regurgitation. Pulmonic Valve The pulmonary valve is normal in structure. There is no pulmonic valvular stenosis. Moderate pulmonic regurgitation. Great Vessels The aortic root is normal in size. The ascending aorta is normal in size. Aortic arch is not well vis ualized. The IVC collapses <50% with inspiration. Pericardium There is no pericardial effusion. 2D Dimensions IVSD d PLAX 0.89 cm F: 0.6-1.0 LV Vol A2C d MOD 70.5 mL LVPW d PLAX 0.88 cm F: 0.6 - 1.0 LV Vol A4C d MOD 76.6 mL LVID d PLAX 4.52 cm F: 3.8 - 5.2 LA vol/ BSA A2C s A-L 39.2 mL/m2 LVDs 3.05 cm F: 2.2 - 3.5 LA vol/ BSA A4C s A-L 56.7 mL/m2 Ao Root d 2.54 cm F: 2.7 - 3.3 LA Vol/ BSA Biplane s A-L 50.8 mL/m2 RA Area A4C 21.19 cm2 LA Area A4C s MOD 26.93 cm2 RA Vol/ BSA A4C s A-L 41.7 mL/m2 LA Area A2C s MOD 20.76 cm2 Ao Asc Diam d 3.09 cm F: 2.3 - 3.1 LV EF A4C MOD 61.9 % LV EF Teichholz 60.1 % LV EF A2C MOD 60.5 % LVEF (Lanier's) 59.72 % F: 54 - 74 LV EF Biplane MOD 59.7 % LV Volume 59.29 mL F: 46 - 106 SV 43.79 mL LV Volume Index 36.59 mL/m2 F: 29 - 61 SV Index 27.02 mL/m2 LV Vol Biplane MOD 73.3 mL FS 31.90 % M-Mode TAPSE 1.59 cm (M/F) >1.7 LV Diastology MV E' medial 0.106 (>0.07 m/s) MV E Vmax 1.04 (0.4-1.3 m/s) LV E/e MED 9.70 (<14) MV E' lateral 0.097 (>0.1 m/s) LV E/e LAT 10.70 (<14) MV E/E' medial 9.75 MV E/E' lateral 10.73 Aortic Valve LVOT Area 2.97 cm2 AoV Area Vmax 2.17 cm2 LVOT Vmax 0.87 m/s AoV Area/ BSA (Vmax) 1.34 cm2/m2 LVOT Mean Bismark. 0.49 m/s TAMMIE Mean Bismark. 1.81 cm2 LVOT Peak Grad 3.1 mmHg TAMMIE Mean [place]. Index 1.12 cm2/m2 LVOT Mean Grad 1.2 mmHg LVOT VTI 0.135 m LVOT Diam s 1.90 cm AoV Vmax 1.20 m/s Velocity Ratio 0.72 AoV Mean [place]. 0.80 m/s AoV Peak Grad 5.7 mmHg LVOT SV 40.06 mL AoV Mean Grad 3.0 mmHg AoV VTI 0.261 m AoV Area VTI 1.53 cm2 AoV Area/ BSA (VTI) 0.95 cm/m2 Mitral Valve MV DT 186 (160-240 msec) MV PHT 54 msec MV Area PHT 4.07 cm2 MV VTI 0.202 m MV Area VTI 1.98 (4.0-6.0 cm2) Pulmonary Valve PV Vmax 0.83 (0.5-1.5 m/s) RVOT Peak Gr. 1.55 mmHg PV Peak Grad 2.8 mmHg RVOT Mean Gr. 0.75 mmHg PV Mean Grad 1.4 mmHg RVOT VTI 0.136 m PV VTI 0.176 m RVOT Vmax 0.62 m/s Tricuspid Valve TR Peak Grad 54.6 mmHg TR Vmax 3.70 m/s RA Pressure 8.00 mmHg RVSP (TR) 62.7 mmHg
--- NOTE | 2021-08-20 08:59 | INITIAL_ITS ---
- If Service Date Differs Date of service: 08/20/21 Time of Service: 08:59 Care Management Initial Assess REASON FOR HOSPITALIZATION:: Acute respiratory failure, CHF PAST MEDICAL HISTORY/PAST SURGICAL HISTORY:: Active Problem List (Updated 08/19/21 @ 21:35 by Maninder Haskins MD). Weakness of both legs (Acute). Hyperkalemia (Acute). Acute respiratory failure with hypoxia and hypercapnia (Acute). Acute exacerbation of chronic obstructive pulmonary disease (Acute). Hypoxia (Acute). Acute exacerbation of congestive heart failure (Acute). Requires supplemental oxygen (Acute). Hypoxia (Acute). Shortness of breath (Acute). CHF (congestive heart failure) (Chronic). DVT prophylaxis (Acute). Discharge planning issues (Acute). HTN (hypertension) (Chronic). Atrial fibrillation (Chronic). Smoker (Acute). COPD (chronic obstructive pulmonary disease) (Chronic). Lung mass (Acute). Medical History. Atrial fibrillation. COPD (chronic obstructive pulmonary disease). HTN (hypertension). Hypercholesteremia. Lung cancer. Lung mass. Smoker PREVIOUS FUNCTIONAL STATUS/SOCIAL/FAMILY SUPPORTS:: Siomara lives alone in [facility]. She is independent at baseline and drives. Her grandson and granddaughter live closeby and are supportive of her healthcare needs. CURRENT FUNCTIONAL STATUS:: Siomara was lying in bed when CM met with her. She was pleasant and easily engaged in conversation. She reported that she was just here on Tuesday but needed to leave AMA after becoming anxious. She did not want home oxygen at that time, but now recognises that she needs it. Per patient RT is working on getting her home O2 supplies through [facility] [place]. ADVANCE DIRECTIVES:: On file. HCA is yoli Quinones Has patient been provided with info about the portal/API?: Yes Did the patient sign up for the portal?: No CODE STATUS:: Full Code INSURANCE COVERAGE / FINANCIAL ISSUES:: AARP/UN.HLTH [employer] Replacement. CMR CURRENT HOME/COMMUNITY SERVICES/EQUIPMENT:: None at this time. PRIMARY CARE PHYSICIAN:: Dr. Sherwin Ceja POTENTIAL DISCHARGE NEEDS:: [place] [facility]2, through [facility] [place] PATIENT/FAMILY EDUCATION NEEDS:: Review discharge instructions, limitations and plan to follow up with community providers. ask me three. TRANSPORTATION:: Via private vehicle with family. PLAN:: Anticipate Siomara will be discharged home with [place] [facility] when medically cleared by provider. She will transport via private vehicle with family. She will follow up with her community providers and discharge plan of care as prescribed.
[2021-08-20] MEDS: Normal Saline Flush 10 ML SYR IVP ×2 (09:42→14:53)
[2021-08-20] MEDS: Cefpodoxime 200 MG TAB PO ×2 (09:42→19:34)
--- NOTE | 2021-08-20 09:44 | IN_ITS ---
Date of service: 08/20/21 Time of Service: 09:44 PT Notes Visit Reasons: Acute Respiratory Failure,Congestive Heart Failure Physical Therapy Inpatient Initial Evaluation Date: 08/20/2021 Referring Doctor: Eneida Sahu MD PT Orders: PT CONSULT: Limited ABility Precautions: Fall. Standard. Activity as tolerated. Patient Profile/Admitting Diagnosis: Patient is a 76-year-old female who presented to the ED on 08/19/2021 due to increasing shortness of breath and decreased activity tolerance. She is diagnosed with COPD exacerbation, CHF exacerbation, acute respiratory failure, hypertension, atrial fibrillation, hyperkalemia, weakness of B LE. PMHX: Active Problem List (Updated 08/17/21 @ 19:00 by Patrick Tamez MD) Hypoxia (Acute) Shortness of breath (Acute) CHF (congestive heart failure) (Chronic) DVT prophylaxis (Acute) Discharge planning issues (Acute) HTN (hypertension) (Chronic) Atrial fibrillation (Chronic) Smoker (Acute) COPD (chronic obstructive pulmonary disease) (Chronic) Lung mass (Acute) Medical History (Updated 08/17/21 @ 19:00 by Patrick Tamez MD) Atrial fibrillation COPD (chronic obstructive pulmonary disease) HTN (hypertension) Hypercholesteremia Lung cancer Lung mass Smoker Social History/Home Situation: Lives alone in a private home with 4 steps and a 1 rail. Independent with all activities of daily living with all aspects of ADLs, rarely uses her single point cane. Has 13 steps to her basement. Equipment Owned/DME: SPC Subjective: Wanted to try and see how she walks using no assistive device first and see if having a walker will be needed. Firm that she has been able to manage home alone without an assitive device. Objective: General Observation: Seated on chair. On 2L of oxygen/minute continuous. Bluish/purplish discoloration in face. Mental Status: Alert and oriented as to person, place, time, and purpose. Able to pay attention, focus, and respond appropriately. Pain: 0/10 Vital Signs: Desaturated to 83% on 2L, PT needed to increase oxygen supplementation to 4L/min to stay above 88% with plethysmograph reading well. ROM: Right Upper Extremity: Shoulder Flexion WFL. Shoulder abduction WFL. Elbow flexion WFL. Wrist flexion WFL. Functional opening and closing of hand WFL. Left Upper Extremity: Shoulder Flexion WFL. Shoulder abduction WFL. Elbow flexion WFL. Wrist flexion WFL. Functional opening and closing of hand WFL. Right Lower Extremity: Hip flexion WFL. Hip abduction WFL. Knee flexion WFL. Ankle dorsiflexion WFL. Ankle plantarflexion WFL. Left Lower Extremity: Hip flexion WFL. Hip abduction WFL. Knee flexion WFL. Ankle dorsiflexion WFL. Ankle plantarflexion WFL. Strength: Right Upper Extremity: Shoulder flexors 4-/5. Shoulder abductors 4-/5. Elbow flexors 4-/5. Elbow extensors 4-/5. Wardrobe Specialty Worker strong. Left Upper Extremity: Shoulder flexors 4-/5. Shoulder abductors 4-/5. Elbow flexors 4-/5. Elbow extensors 4-/5. Wardrobe Specialty Worker strong. Right Lower Extremity: Hip flexors 4/5. Hip abductors 4/5. Knee flexors 5/5. Knee extensors 4/5. Ankle dorsiflexors 4/5. Ankle plantarflexors 4/5. Left Lower Extremity: Hip flexors 4/5. Hip abductors 4/5. Knee flexors 5/5. Knee extensors 4/5. Ankle dorsiflexors 4/5. Ankle plantarflexors 4/5. Bed Mobility/Transfers: Rolling independent Supine to sit independent Sit to supine independent Sit to stand independent Stand to sit independent Bed to reclining chair supervision Gait: Instructed patient with level surface ambulation of 230 feet requiring stand by assist. Cynthia decreased. Mild path deviation with patient stating that she has walked this far since admission. Holding onto wall and rails along the way. Desaturated to 83% on 2L needing increase of oxygen supplementation to 4L to maintain oxygen level above 88%. Balance: Static Sitting: Normal Dynamic Sitting: Normal Static Standing: Good Dynamic Standing: Fair Special Tests: Mobility Limitations Standardized Measure [facility] AM-PAC 6 clicks Basic Mobility Inpatient Short Form: Raw Score: 22 CMS Score: 21% deficit 4-Stage Balance Test: Unable to maintain all three positions for 10 seconds but is able to put feet together for 10 seconds. Informed Consent/Education: Patient was instructed in purpose of PT consult and plan of care. Agreeable to proceed with established PT POC to achieve personal goals. Assessment: Agreeable to trying out the cane this afternoon to see how stable she will be and how much her oxygen saturation will be helped with the added energy conservation device. Patient presents with clinical signs and symptoms consistent with current/admitting diagnoses that have resulted to mobility limitations, gait instability, generalized weakness, and overall ADL decline as demonstrated by the following impairment level findings: 1. Impaired standing balance 2. Impaired activity tolerance 3. Shortness of breath Impairments are contributing to the following functional limitations: 1. Decline in bed mobility skills 2. Decline in transfer skills 3. Difficulty with ambulation without assistive device and physical assistance 4. Increased completion time for mobility ADL performance 5. Increased risk for falls 6. Difficulty with managing steps alone safely Patient is assessed [place] a 97402 moderate complexity based on the following: History: 76-year-old female with past medical history as indicated above Examination: Demonstrable impairment in strength, balance, and mobility level with underlying impairments and functional limitations as exhibited above as well as deficit score of 21% utilizing the [facility] Mobility Inpatient Short Form Presentation: Evolving Decision Makin moderate complexity Goals: Goals X1 week 1. Supine-Sit independent 2. Sit-Supine independent 3. Sit-Stand independent 4. Stand-Sit independent with no AD 5. Bed-Chair independent with no AD 6. Chair-Bed independent with no AD 7. Independent gait on level surface with use of no AD for at least 500 feet without report of pain nor dyspnea 8. Independent stair negotiation while holding onto 1 rail for at least 15 steps without report of pain nor dyspnea 9. Independent with home exercise program 10. Good static and dynamic standing balance/tolerance Plan of Care/Treatment Plan: 1-2x/day, 7 days/week x 1 week. Plan of care has been reviewed with the [employer] providing the service under Physical Therapy direction. Initiate Physical Therapy intervention for pain management as needed, strengthening, bed mobility, transfers, gait, stairs, balance training, and use of assistive device. DISCHARGE RECOMMENDATIONS: [X] Home with no services. Home when medically cleared by hospitalist. Reinforced use of SPC to conserve energy and increase stability of walking by reducing dependence on mark and furnitures at home. [] Home with services [specify] [] Home with outpatient PT [] [] SNF for continued rehabilitation [] [] Senior Care Care [] [] SNF versus LTC based on ability to participate and progress [] TREATMENT CODE/TIME: 23484 x 20 minutes, 45086 x 9 minutes beginning at 9:44 AM. Thank you for the opportunity to participate in the care of this patient. Andressa Cartagena PT, DPT, CLT [facility] [place], [place]
--- NOTE | 2021-08-20 11:56 | PHA.REVIEW ---
Pharmacy Admission Review - Admission Clinical Review Weakness of both legs (Acute) Hyperkalemia (Acute) Acute respiratory failure with hypoxia and hypercapnia (Acute) Acute exacerbation of chronic obstructive pulmonary disease (Acute) Hypoxia (Acute) Acute exacerbation of congestive heart failure (Acute) Requires supplemental oxygen (Acute) Smoker (Acute) No Known Allergies Allergy (Unverified 08/19/21 18:05) Resuscitation Status Full Code Height 5 ft 3 in Weight 56.8 kg - Renal Dosing Renal Dosing: BUN 25 mg/dL (7-18) H 08/20/21 07:10 Creatinine 0.6 mg/dL (0.55-1.02) 08/20/21 07:10 Medications needing adjustments: Reviewed (SCr: 0.6, CrCl~51.03mL/min. All medications dosed appropriately.) - Anticoagulation Anticoagulation: Hgb 16.1 g/dL (11.2-15.7) H 08/20/21 07:15 Hct 52.1 % (36.0-46.0) H 08/20/21 07:15 Plt Count 179 10^3/uL (130-400) 08/20/21 07:15 Creatinine 0.6 mg/dL (0.55-1.02) 08/20/21 07:10 Therapeutic Anticoagulation: Reviewed Medications: Rivaroxaban (Rivaroxaban 20mg daily (continued from home)) - Opiate Usage Evaluate Pain Scale/Pains Meds: N/A - Relevant Labs Sodium 140 mmol/L (136-145) 08/20/21 07:10 Potassium 4.9 mmol/L (3.5-5.1) 08/20/21 07:10 Chloride 98 mmol/L (98-107) 08/20/21 07:10 Magnesium 2.3 mg/dL (1.8-2.4) 08/19/21 17:48 Electrolytes, C-Reactive P, ESR: Reviewed (Potassium was high on admission (5.2), Lisinopril held, Furosemide IVP - now 4.9.) - DM Control DM Control: Glucose 127 mg/dL (74-106) H 08/20/21 07:10 Insulin Dosing: N/A - Heart Failure/PR Heart Failure/PR: Troponin I < 0.05 ng/mL (<0.06) 08/19/21 17:48 NT-Pro-B Natriuret Pep 2778 pg/mL (<300) H 08/19/21 17:48 EF%, ANGEL's, B-Blockers, Diuretics: Reviewed (EF 60-65%. Furosemide 40mg IVP daily, Lisinopril 5mg daily (held currently due to hyperkalemia).) - BP Control BP Control: Blood Pressure 120/73 Blood Pressure 108/70 If elevated: Reviewed (Blood pressure elevated.) - Qtc Review If Elevated: N/A (QTc 453 on admission.) - IV to PO Switch IV Medications: Reviewed - Home Meds Home Med List reviewed: Intervened (Diltiazem CD 120mg daily not ordered.) - Current meds Current Medication Order Review: Reviewed - Comments Comments/Follow Ups: Continue to monitor potassium, vitals, labs and for medication changes. Antibiotic Activity - Pharmacy Antibiotic Review Pharmacy Antibiotic Activity: Reviewed, no change (Azithromycin 250mg daily and Cefpodoxime 200mg BID continued from last discharge on 08/17/21.)
--- NOTE | 2021-08-20 14:53 | W.PM.PROGNOT ---
Date of Service Date of service: 08/20/21 Time of Service: 14:53 Assessment and Plan Assessment and plan (1) Acute exacerbation of chronic obstructive pulmonary disease: Status: Acute Assessment and plan: Exacerbated by ongoing smoking and possibly pneumonia. Cont antibiotics initiated during recent admission; azithromycin 250mg daily and cefpodoxime 200mg BID. Duonebs Q6H and prn nebulized albuterol. Given solumedrol 125mg IV in the ED. Cont prednisone 40mg po daily starting in the AM. Consider LABB/steroid combination. (2) Acute exacerbation of congestive heart failure: Status: Acute Assessment and plan: Improved NTProBNP compared to 08/17/21. Given lasix 40mg IV in the ED. Will cont 40mg daily for short term with decision to be made to continue or not. . Low NA diet. Echocardiogram ordered. Last Echo in [facility] records was on 11/13/18: EF of 60-65%. Mild mitral regurgitation. Severely dilated R and L atrium. Pulmonary systolic pressure in the range of 45mmHg to 55mmHg (3) Acute respiratory failure with hypoxia and hypercapnia: Status: Acute Assessment and plan: Requiring supplemental O2 particularly with exertion. Monitor and admust. (4) HTN (hypertension): Status: Chronic Assessment and plan: On Diltiazem and Lisinopril. Hold lisinopril for short run d/t mild hyperkalemia. Hyperkalemia not noted at last admission. Will likely lower with diuretic. Monitor. Qualifiers: Hypertension type: essential hypertension Qualified Code(s): I10 - Essential (primary) hypertension (5) Atrial fibrillation: Status: Chronic Assessment and plan: Rate controlled on Diltiazem. Cont Xarelto for AC. Telemetry. Qualifiers: Atrial fibrillation type: permanent Qualified Code(s): I48.2 - Chronic atrial fibrillation (6) Smoker: Status: Acute Assessment and plan: NIcotine replacement offered. Encourage cessation. (7) Hyperkalemia: Status: Acute Assessment and plan: No previous hyperkalemia noted in [facility] records. LIkely will respond to lasix. Monitor. (8) Weakness of both legs: Status: Acute Assessment and plan: Concerning for PAD. Recommend outpt w/u beginning with REHANA's. Risk factors for atherosclerotic disease; smoking, HTN. Nuc Med stress test in 2014; No perfusion defects. Stress ECG was borderline. Repeat Nuc Med stress testing would be appropriate as well. (9) Discharge planning issues: Status: Acute Assessment and plan: plan to discharge to home on oxygen case management following discussed with Dr Sahu Subjective Subjective Patient reports: no new complaints, feels better, tolerating liquids well, tolerating a regular diet, shortness of breath and afebrile Exam Const General: cooperative and no acute distress HENMT Head: normal to inspection Face and sinus: normal facial exam Mouth: mucous membranes dry Eyes General: appearance normal, both eyes and all related structures Pupils: PERRL EOM: EOM intact bilaterally Neck Neck: normal visual inspection Chest Chest: normal inspection of the chest Resp Effort & Inspection: normal respiratory effort and able to speak in complete sentences Auscultation: crackles bilaterally throughout and wheezes expiratory wheezes and inspiratory wheezes Cardio Rate: regular rate Rhythm: regular rhythm GI Inspection: normal to inspection Palpation: soft and nontender Auscultation: no hypoactive bowel sounds Skin General skin exam: no rashes or lesions noted Neuro General: patient alert, patient awake and patient oriented x3 Cognition: normal cognition Speech: speech normal Motor: muscle tone normal throughout Sensory Exam: no sensory deficits noted Extrem General: normal to inspection, full ROM, capillary refill normal, no calf tenderness bilaterally and no edema Psych Appearance: grossly normal Mental Status: mental status grossly normal Speech and Movement: speech and movement normal Affect: normal affect Objective Last Vital Signs Temp 36.9 C 08/20/21 12:11 Pulse 78 08/20/21 12:11 Resp 17 08/20/21 12:11 BP 105/63 08/20/21 12:11 Pulse Ox 92 08/20/21 12:11 Laboratory Results - last 24 hr 08/19/21 08/19/21 08/19/21 17:45 17:48 17:48 WBC 11.74 H RBC 5.25 H Hgb 16.0 H Hct 51.6 H MCV 98.3 H MCH 30.5 MCHC 31.0 L RDW 16.1 H Plt Count 190 MPV 10.4 Immature Gran % 0.3 Neutrophils % 93.9 Lymphocytes % 3.2 Monocytes % 2.4 Eosinophils % 0.1 Basophils % 0.1 Nucleated RBC % 0 Absolute Neutrophils 11.02 H Absolute Lymphocytes 0.38 L Absolute Monocytes 0.28 Absolute Eosinophils 0.01 Absolute Basophils 0.01 Sodium 137 Potassium 5.2 H D Chloride 98 Carbon Dioxide 38.3 H Anion Gap 0.7 L BUN 27 H D Creatinine 0.7 Estimated GFR/1.73 m2 >= 60.00 Glucose 124 H Calcium 9.3 Magnesium 2.3 Total Bilirubin 0.6 AST 18 ALT 25 Alkaline Phosphatase 95 Troponin I < 0.05 NT-Pro-B Natriuret Pep 2778 H Total Protein 7.1 Albumin 3.7 COVID-19 Source Nasal/Nares SARS-CoV-2 (PCR) Negative 08/20/21 08/20/21 07:10 07:15 WBC 7.94 D RBC 5.23 H Hgb 16.1 H Hct 52.1 H MCV 99.6 H MCH 30.8 MCHC 30.9 L RDW 16.0 H Plt Count 179 MPV 11.1 H Immature Gran % 0.3 Neutrophils % 93.3 Lymphocytes % 4.2 Monocytes % 2.1 Eosinophils % 0.0 Basophils % 0.1 Nucleated RBC % 0 Absolute Neutrophils 7.41 H Absolute Lymphocytes 0.33 L Absolute Monocytes 0.17 Absolute Eosinophils 0.00 Absolute Basophils 0.01 Sodium 140 Potassium 4.9 Chloride 98 Carbon Dioxide 41.6 H Anion Gap 0.4 L BUN 25 H Creatinine 0.6 Estimated GFR/1.73 m2 >= 60.00 Glucose 127 H Calcium 9.1 Magnesium Total Bilirubin AST ALT Alkaline Phosphatase Troponin I NT-Pro-B Natriuret Pep Total Protein Albumin COVID-19 Source SARS-CoV-2 (PCR)
--- NOTE | 2021-08-20 15:25 | PT.INTREAT ---
Date of service: 08/20/21 Time of Service: 12:43 PT Notes Visit Reasons: Acute Respiratory Failure,Congestive Heart Failure Inpatient Physical Therapy Treatment Note [facility] Date: 08/20/2021 PRECAUTIONS: Monitor SaO2 SUBJECTIVE: Siomara is pleasant and agreeable to participating in PT. She states that she has agreed to stay one more night. She reports that she has been transferring and ambulating independently in her room all day and that she feels safe doing so. OBJECTIVE: PAIN: No c/o pain BED MOBILITY/TRANSFERS Supine-sit: I with HOB flat Sit-supine: I with HOB flat Sit-stand: I Stand-sit: I Bed-Chair: I Chair-bed: I GAIT Assistive Device: Quadcane No AD Weight bearing: Full Assist: S with quadcane I without AD Distance: 200' with quadcane 650' without AD Deviation: Mild SOB STAIRS: Up/down 9x4 and 6x6 using U rail and a step-over pattern independently ASSESSMENT: Patient tolerated session without complaint. She demonstrates independence with ambulation over level surface without use of assistive device. She ambulates on 2L O2 without signs of SOB. PLAN: Patient is cleared to be independent within her room. Discharge from PT services as patient is at functional baseline. TREATMENT CODE/TIME: 25 minutes; [id number] x2 (12:43)
[2021-08-20] MEDS: dilTIAZem CD 120 MG CAPCR PO (16:41)
--- NOTE | 2021-08-20 16:56 | CHAPLAIN ---
Siomara was sitting up in the recliner when I visited. She was here a day or two ago, and then readmitted last night for more shortness of breath. She lives at home with a granddaughter and greatgranddaughter. Her , Zachary, a few years ago of lung cancer, and Siomara took care of him at home on hospice. I will continue to visit.
[2021-08-20] MEDS: Atorvastatin 40 MG TAB 80 MG PO (19:34)
[2021-08-20] MEDS: Rivaroxaban 10 MG TABLET 20 MG PO (19:34)
[2021-08-21] VITALS (7 sets, daily range): BP systolic 100–135; BP diastolic 65–75; PULSE 74–99; RESP 1–24; TEMP 36.4–36.8; O2SAT 84–95
[2021-08-21] MEDS: Albuterol/Ipratropium 3 ML UPD VIAL UPD ×2 (03:40→10:13)
[2021-08-21 07:45] LABS: Anion Gap -0.9 mmol/L (3-11); BUN 28 mg/dL (7-18); CO2 41.9 mmol/L (21.0-32.0); CREATININE 0.7 mg/dL (0.55-1.02); Calcium 9.1 mg/dL (8.5-10.1); Chloride 99 mmol/L (98-107); Glucose 97 mg/dL (74-106); Magnesium 2.4 mg/dL (1.8-2.4); Potassium 4.4 mmol/L (3.5-5.1); Sodium 140 mmol/L (136-145)
[2021-08-21] MEDS: dilTIAZem CD 120 MG CAPCR PO (08:30)
[2021-08-21] MEDS: predniSONE 20 MG TAB 40 MG PO (08:30)
[2021-08-21] MEDS: Azithromycin 250 MG TAB PO (08:30)
[2021-08-21] MEDS: Cefpodoxime 200 MG TAB PO (08:30)
[2021-08-21] MEDS: Furosemide 40 MG/4 ML VIAL IVP (08:31)
[2021-08-21] MEDS: Normal Saline Flush 10 ML SYR IVP (08:31)
--- NOTE | 2021-08-21 08:52 | PT.INDS ---
Date of service: 08/21/21 Time of Service: 08:52 PT Notes Visit Reasons: Acute Respiratory Failure,Congestive Heart Failure Physical Therapy Inpatient Initial Evaluation Date: 08/20/2021 Referring Doctor: Eneida Sahu MD PT Orders: PT CONSULT: Limited ABility Precautions: Fall. Standard. Activity as tolerated. Patient Profile/Admitting Diagnosis: Patient is a 76-year-old female who presented to the ED on 08/19/2021 due to increasing shortness of breath and decreased activity tolerance. She is diagnosed with COPD exacerbation, CHF exacerbation, acute respiratory failure, hypertension, atrial fibrillation, hyperkalemia, weakness of B LE. PMHX: Active Problem List (Updated 08/17/21 @ 19:00 by Patrick aTmez MD) Hypoxia (Acute) Shortness of breath (Acute) CHF (congestive heart failure) (Chronic) DVT prophylaxis (Acute) Discharge planning issues (Acute) HTN (hypertension) (Chronic) Atrial fibrillation (Chronic) Smoker (Acute) COPD (chronic obstructive pulmonary disease) (Chronic) Lung mass (Acute) Medical History (Updated 08/17/21 @ 19:00 by Patrick Tamez MD) Atrial fibrillation COPD (chronic obstructive pulmonary disease) HTN (hypertension) Hypercholesteremia Lung cancer Lung mass Smoker Social History/Home Situation: [] Equipment Owned/DME: [] Subjective: [] Objective: [] General Observation: [] Mental Status: Alert and oriented as to person, place, time, and purpose. Able to pay attention, focus, and respond appropriately. Pain: []/10 in [] [] Vital Signs: [] ROM: Right Upper Extremity: Shoulder Flexion WFL. Shoulder abduction WFL. Elbow flexion WFL. Wrist flexion WFL. Functional opening and closing of hand WFL. Left Upper Extremity: Shoulder Flexion WFL. Shoulder abduction WFL. Elbow flexion WFL. Wrist flexion WFL. Functional opening and closing of hand WFL. Right Lower Extremity: Hip flexion WFL. Hip abduction WFL. Knee flexion WFL. Ankle dorsiflexion WFL. Ankle plantarflexion WFL. Left Lower Extremity: Hip flexion WFL. Hip abduction WFL. Knee flexion WFL. Ankle dorsiflexion WFL. Ankle plantarflexion WFL. Strength: Right Upper Extremity: Shoulder flexors 5/5. Shoulder abductors 5/5. Elbow flexors 5/5. Elbow extensors 5/5. Spreader Operator strong. Left Upper Extremity: Shoulder flexors 5/5. Shoulder abductors 5/5. Elbow flexors 5/5. Elbow extensors 5/5. Spreader Operator strong. Right Lower Extremity: Hip flexors 5/5. Hip abductors 5/5. Knee flexors 5/5. Knee extensors 5/5. Ankle dorsiflexors 5/5. Ankle plantarflexors 5/5. Left Lower Extremity: Hip flexors 5/5. Hip abductors 5/5. Knee flexors 5/5. Knee extensors 5/5. Ankle dorsiflexors 5/5. Ankle plantarflexors 5/5. Bed Mobility/Transfers: Rolling with [] cues for safe/correct technique Supine to sit with [] cues for safe/correct technique Sit to supine with [] cues for safe/correct technique Sit to stand with [] with [] cues for safe/correct technique Stand to sit with [] with [] cues for safe/correct technique Bed to bedside commode with [] with [] cues for safe/correct technique Bedside commode to bed with [] with [] cues for safe/correct technique Bed to reclining chair with [] with [] cues for safe/correct technique Reclining chair to bed with [] with [] cues for safe/correct technique Gait: Instructed patient with level surface ambulation of [] feet requiring [] assist. Cynthia []. Step height []. Step length []. Balance: Static Sitting: [] Dynamic Sitting: [] Static Standing: [] Dynamic Standing: [] Special Tests: Mobility Limitations [facility] Basic Mobility Inpatient Short Form: Raw Score: [] CMS Score: []% deficit Informed Consent/Education: Patient was instructed in purpose of PT consult and plan of care. Agreeable to proceed with established PT POC to achieve personal goals. Assessment: Patient presents with clinical signs and symptoms consistent with current/admitting diagnoses that have resulted to mobility limitations, gait instability, generalized weakness, and overall ADL decline as demonstrated by the following impairment level findings: 1. Decreased strength to [] [] major muscle groups 2. Impaired sitting/standing balance 3. Impaired activity tolerance 4. Limitation of joint range of motion in [] 5. Shortness of breath 6. Swelling Impairments are contributing to the following functional limitations: 1. Decline in bed mobility skills 2. Decline in transfer skills 3. Difficulty with ambulation without assistive device and physical assistance 4. Increased completion time for mobility ADL performance 5. Increased risk for falls 6. Difficulty with managing steps alone safely Patient is assessed as a [] complexity based on the following: History: []-year-old [] with past medical history as indicated above Examination: Demonstrable impairment in strength, balance, and mobility level with underlying impairments and functional limitations as exhibited above as well as deficit score of []% utilizing the [facility] Mobility Inpatient Short Form Presentation: [] Decision Making: [] complexity Goals: Goals X1 week 1. Supine-Sit independent 2. Sit-Supine independent 3. Sit-Stand independent 4. Stand-Sit independent with [] 5. Bed-Chair independent with [] 6. Chair-Bed independent with [] 7. Independent gait on level surface with use of [] for at least [] feet without report of pain nor dyspnea 8. Independent stair negotiation while holding onto [] rails for at least [] steps without report of pain nor dyspnea 9. Independent with home exercise program 10. Good static and dynamic standing balance/tolerance Plan of Care/Treatment Plan: 1-2x/day, 7 days/week x 1 week. Plan of care has been reviewed with the MANAGER MASSAGE DEPARTMENT providing the service under Physical Therapy direction. Initiate Physical Therapy intervention for pain management as needed, strengthening, bed mobility, transfers, gait, stairs, balance training, and use of assistive device. DISCHARGE RECOMMENDATIONS: [] TREATMENT CODE/TIME: [] Thank you for the opportunity to participate in the care of this patient. Andressa Cartagena PT, DPT, CLT [facility] [place], [place]
--- NOTE | 2021-08-21 09:07 | CMPROGNOTE_ITS ---
- If Service Date Differs Date of service: 08/21/21 Time of Service: 09:07 Care Management Progress Note S/O: Siomara remains inpatient, CM continues to follow. A: 76 year old female admitted to [facility] P: Siomara will be discharged home with new Home O2-coordinated by RT when medically cleared by provider. She will transport via private vehicle with family. She will follow up with her community providers and discharge plan of care as prescribed.
--- NOTE | 2021-08-21 09:30 | INDS_ITS ---
Date of service: 08/20/21 Time of Service: 09:31 PT Notes Visit Reasons: Acute Respiratory Failure,Congestive Heart Failure Physical Therapy Inpatient Discharge Summary Date: 08/21/2021 Dates of Service: 08/20/2021 only This is a clinical summary of care provided for the duration of dates listed above. No charge was made in the completion of this documentation. Referring Doctor: Eneida Sahu MD PT Orders: PT CONSULT: Limited ABility Precautions: Fall. Standard. Activity as tolerated. Patient Profile/Admitting Diagnosis: Patient is a 76-year-old female who presented to the ED on 08/19/2021 due to increasing shortness of breath and decreased activity tolerance. She is diagnosed with COPD exacerbation, CHF exacerbation, acute respiratory failure, hypertension, atrial fibrillation, hyperkalemia, weakness of B LE. PMHX: Active Problem List (Updated 08/17/21 @ 19:00 by Patrick Tamez MD) Hypoxia (Acute) Shortness of breath (Acute) CHF (congestive heart failure) (Chronic) DVT prophylaxis (Acute) Discharge planning issues (Acute) HTN (hypertension) (Chronic) Atrial fibrillation (Chronic) Smoker (Acute) COPD (chronic obstructive pulmonary disease) (Chronic) Lung mass (Acute) Medical History (Updated 08/17/21 @ 19:00 by Patrick Tamez MD) Atrial fibrillation COPD (chronic obstructive pulmonary disease) HTN (hypertension) Hypercholesteremia Lung cancer Lung mass Smoker Social History/Home Situation: Lives alone in a private home with 4 steps and a 1 rail. Independent with all activities of daily living with all aspects of ADLs, rarely uses her single point cane. Has 13 steps to her basement. Equipment Owned/DME: SPC Subjective: NT. See most recent SYSTEMS ADMINISTRATOR notes. Objective: General Observation: NT. See most recent SYSTEMS ADMINISTRATOR notes. Mental Status: NT. See most recent SYSTEMS ADMINISTRATOR notes. Pain: NT. See most recent SYSTEMS ADMINISTRATOR notes. Vital Signs: NT. See most recent SYSTEMS ADMINISTRATOR notes. ROM: Right Upper Extremity: Shoulder Flexion WFL. Shoulder abduction WFL. Elbow flexion WFL. Wrist flexion WFL. Functional opening and closing of hand WFL. Left Upper Extremity: Shoulder Flexion WFL. Shoulder abduction WFL. Elbow flexion WFL. Wrist flexion WFL. Functional opening and closing of hand WFL. Right Lower Extremity: Hip flexion WFL. Hip abduction WFL. Knee flexion WFL. Ankle dorsiflexion WFL. Ankle plantarflexion WFL. Left Lower Extremity: Hip flexion WFL. Hip abduction WFL. Knee flexion WFL. Ankle dorsiflexion WFL. Ankle plantarflexion WFL. Strength: Right Upper Extremity: Shoulder flexors 4-/5. Shoulder abductors 4-/5. Elbow flexors 4-/5. Elbow extensors 4-/5. Clinical Data Programmer strong. Left Upper Extremity: Shoulder flexors 4-/5. Shoulder abductors 4-/5. Elbow flexors 4-/5. Elbow extensors 4-/5. Clinical Data Programmer strong. Right Lower Extremity: Hip flexors 4/5. Hip abductors 4/5. Knee flexors 5/5. Knee extensors 4/5. Ankle dorsiflexors 4/5. Ankle plantarflexors 4/5. Left Lower Extremity: Hip flexors 4/5. Hip abductors 4/5. Knee flexors 5/5. Knee extensors 4/5. Ankle dorsiflexors 4/5. Ankle plantarflexors 4/5. Bed Mobility/Transfers: Rolling independent Supine to sit independent Sit to supine independent Sit to stand independent Stand to sit independent Bed to reclining chair independent Gait: Able to walk independently without AD for up to 600 feet with minimal shortness of breath that subsided with rest. Stairs: Up and down 9 x4 inch steps and 6 x 6 inch steps while holding onto unilateral rail with step-over step pattern independently. Balance: Static Sitting: Normal Dynamic Sitting: Normal Static Standing: Good Dynamic Standing: Fair Assessment: Patient performed significantly better for SYSTEMS ADMINISTRATOR during the afternoon session using no assistive device with no increase in shortness of breath. Patient did not appear to need the single point cane nor did she need to hold onto mark/rails like she did earlier in the morning. Patient is discontinued from skilled services at independent level using no assistive device. Patient is agreeable and is confident about going home with no services at this time. Goals: Goals X1 week 1. Supine-Sit independent MET 2. Sit-Supine independent MET 3. Sit-Stand independent MET 4. Stand-Sit independent with no AD MET 5. Bed-Chair independent with no AD MET 6. Chair-Bed independent with no AD MET 7. Independent gait on level surface with use of no AD for at least 500 feet without report of pain nor dyspnea MET 8. Independent stair negotiation while holding onto 1 rail for at least 15 steps without report of pain nor dyspnea MET 9. Independent with home exercise program MET 10. Good static and dynamic standing balance/tolerance MET DISCHARGE RECOMMENDATIONS: [X] Home with no services. Home when medically cleared by hospitalist. Reinforced use of SPC to conserve energy and increase stability of walking by reducing dependence on mark and furnitures at home. [] Home with services [specify] [] Home with outpatient PT [] [] SNF for continued rehabilitation [] [] Fixed Route Bus Operator Care [] [] SNF versus LTC based on ability to participate and progress [] TREATMENT CODE/TIME: [place] Thank you for the opportunity to participate in the care of this patient. Andressa Cartagena PT, DPT, CLT [facility] [place], [place]
[2021-08-21] MEDS: Pantoprazole 40 MG TABCR PO (10:13)
--- NOTE | 2021-08-21 12:52 | W.PM.DS.N ---
Date of service: 08/21/21 Time of Service: 12:54 DS: Diagnosis Discharge Diagnosis (1) Acute exacerbation of chronic obstructive pulmonary disease: Start date: 08/21/21 Start time: 12:54 Status: Acute Asessment and Plan: Improved. Requiring oxygen, 3 liters with activity and 2 litters at rest. She is agreeable to wear the oxygen at home. She has also agreed to palliative care consult with outpatient visit Will need follow up with PCP in [address] Montanez for respriatory failure Complete antibiotics and steroids Oxygen will be set up at home she is agreeable to plan, If she does not wear oxygen she will fail at home. (2) Acute exacerbation of congestive heart failure: Start date: 08/21/21 Start time: 13:08 Status: Acute Asessment and Plan: Lasix PO Improved NTProBNP compared to 08/17/21. Given lasix 40mg IV in the ED. Will cont 40mg daily for short term with decision to be made to continue or not. . Low NA diet. Conclusion Normal left ventricular wall thickness and chamber size. Estimated ejection fraction is 60%. There are no segmental wall motion abnormalities The right ventricle is mildly dilated. Right ventricular systolic function appears normal The left atrium is mildly to moderately dilated. The right atrium is severely dilated. Trileaflet aortic valve without stenosis or regurgitation Mild mitral annular calcification. Mild mitral regurgitation Normal tricuspid valve with moderate regurgitation. Estimated right ventricular systolic pressure is 63 mmHg Normal pulmonic valve with moderate regurgitation (3) Acute respiratory failure with hypoxia and hypercapnia: Start date: 08/21/21 Start time: 13:10 Status: Resolved Asessment and Plan: Severe PHTN with COPD requires oxygen at all times. As above (4) HTN (hypertension): Start date: 08/21/21 Start time: 13:11 Status: Chronic Asessment and Plan: On Diltiazem and Lisinopril. Hold lisinopril for short run d/t mild hyperkalemia. Hyperkalemia not noted at last admission. resolved at this time. Will likely lower with diuretic. Will resume on discharge and start lasix (5) Atrial fibrillation: Start date: 08/21/21 Start time: 13:12 Status: Chronic Asessment and Plan: NSR at this time. continue dilt (6) Smoker: Start date: 08/21/21 Start time: 13:13 Status: Acute Asessment and Plan: Recommend smoking cessation escpecially in setting of oxygen use. Discussed with patient. (7) Hyperkalemia: Start date: 08/21/21 Start time: 13:13 Status: Resolved Asessment and Plan: Likely in setting of diuretics (8) Weakness of both legs: Start date: 08/21/21 Start time: 13:13 Status: Acute Asessment and Plan: This is likely due to hypoxia as she stated that she needed to rest several times while doing simple tasks PT evaluated and does not feel she meets criteria for services. discussed with Dr. Sahu Discharge Plan Disposition Patient Disposition: HOME Condition: Stable Discharge Details Reason For Visit: Acute Respiratory Failure,Congestive Heart Failure Admit Date/Time: 08/19/21 18:53 Admit Provider: Maninder Haskins Attending Provider: Maninder Haskins Primary Care Provider: Sherwin Ceja [facility] Hospital Course: This is a 76 yo female with a PMH of COPD, tobacco abuse disorder, atrial fibrillation on Xarelto, HFpEF, HTN. She presented to the ED from her PCP, Dr. Ceja's office d/t ongoing shortness of breath. She was admitted to [facility] on 08/17/21 for COPD/CHF exacerbations as well as possible pneumonia. She left AMA but was given prescriptions for prednisone and antibiotics. In Dr Ceja's office her RA O2 saturations was 76% which coincided with what she reported from home. Her previous workup included a negative COVID test and a CT chest that was negative for pulmonary emboli. She did have bilateral pleural effusions and a questionable RLL pneumonia. She reportedly refused home O2. Her resting O2 saturations were normal but with activity it decreased into the 70's. In the ED at time of this presentation her O2 saturations on RA were in the mid 80's. On 2L her sat. increaed to 93%. She was noted to have diffuse wheezes and crackles throughout. No pedal edema noted. WBC count of 11.0. Troponin neg. BNP 2778; down from 4065 2 days prior. CXR showed small bilateral pleural effusions. EKG showed afib with rate in the 80's. K elevated at 5.2. Oral lasix, nebulizer txs and IV solumedrol 125mg administered. Over course of treatment oxygen needs improved however she is still requiring oxygen, she likely will need life long, oxygen. She has diminished lung sounds. she was treated with antibiotics and steroids. she worked with PT they don't recommend any services she is being sent home with Palliative consult, oxygen and antibiotics. BC negative. Continue IS and Acapella Home Meds and New Rx's Prescriptions: New cefpodoxime 200 mg Tablet 200 mg PO BID Qty: 14 RF: 0 pantoprazole 40 mg Tablet,Delayed Release (Dr/Ec) 40 mg PO DAILY@0730 Qty: 30 RF: 0 furosemide [Lasix] 20 mg tablet 20 mg PO DAILY@1400 Qty: 30 RF: 0 Continued Xarelto 20 mg tablet 20 mg PO QPM Qty: 30 RF: 11 diltiazem HCl 120 mg capsule,extended release 24hr 120 mg PO DAILY RF: 0 lisinopril 10 mg tablet 5 mg PO DAILY RF: 0 prednisone 20 mg tablet 40 mg PO DAILY Qty: 10 RF: 0 azithromycin 250 mg tablet 250 mg PO DAILY 4 Days Qty: 4 RF: 0 atorvastatin [Lipitor] 80 mg Tablet 80 mg PO QPM RF: 0 albuterol sulfate [ProAir HFA] 90 mcg/actuation Hfa Aerosol Inhaler 2 puff INHALATION QID PRNRF: 0 ipratropium-albuterol 0.5 mg-3 mg(2.5 mg base)/3 mL Solution For Nebulization 3 ml UPD Q6H PRN PRN (Reason: shortness of breath or wheezing) Qty: 180 RF: 0 Discontinued cefpodoxime 200 mg tablet 200 mg PO BID Qty: 7 RF: 0 Discharge Instructions Instructions: Using Oxygen at Home (DC), Hypoxia (GEN), How Your Lungs Work (DC), Chronic Lung Disease and Infection Prevention (DC) Additional Instructions: Continue azithromycin from home and steroids. I have increased you cefpodoxime this is an increase so a new script Continue to use oxygen at all times 2 liters at rest and 3 liter with amblation F/u with PCP as scheduled F/u with our store lead Dr. Nelson Continue to use your incentive spirometer and acapella Stand Alone Forms: Nursing Discharge Form Activity:: Activity as Tolerated Equipment/Supplies:: Oxygen (L/min Below) Diet:: Low Sodium Discharge Orders Discharge Orders: Discharge Order (Routine); Ordered 08/21/21 Ordered By: Caroline Curiel DS: Summary Time Spent with Patient providing and/or coordinating discharge services: Greater than 30 minutes Status at Discharge Functional status at discharge: independent ambulation Overall status at discharge: patient is not back to baseline Mental Status: mental status grossly normal Speech and Movement: speech and movement normal Mood: congruent mood Affect: normal affect Exam Narrative Exam Narrative: Somewhat frail appearing female sitting on edge of bed. Pleasant and conversant. Const General: cooperative, no acute distress and not diaphoretic Nutritional Appearance: average body habitus Orientation: alert and oriented x3 HENMT Head: normal to inspection, normocephalic and atraumatic Ears: hearing grossly normal bilaterally Face and sinus: normal facial exam Mouth: oral mucosae normal and mucous membranes dry Eyes General: appearance normal, both eyes and all related structures Sclera: sclerae normal Pupils: PERRL EOM: EOM intact bilaterally Neck Neck: normal visual inspection and no JVD Lymphatic: no lymphadenopathy noted Chest Chest: normal inspection of the chest Resp Effort & Inspection: normal respiratory effort and able to speak in complete sentences Auscultation: diminished lung sounds Cardio Rate: regular rate Rhythm: regular rhythm GI Inspection: normal to inspection Palpation: soft and nontender Auscultation: no hypoactive bowel sounds Skin General skin exam: no rashes or lesions noted Neuro General: patient alert, patient awake and patient oriented x3 Cognition: normal cognition Speech: speech normal Motor: muscle tone normal throughout Sensory Exam: no sensory deficits noted Extrem General: normal to inspection, full ROM, capillary refill normal, no pedal edema, no calf tenderness, no calf tenderness bilaterally, cyanosis (distal lower exts/feet) and no edema Psych Appearance: grossly normal Mental Status: mental status grossly normal Speech and Movement: speech and movement normal Mood: congruent mood Affect: normal affect DS: Data Vitals/I&O Vitals and I&O: Vital Signs Temperature 36.4 C L 08/21/21 11:37 Temperature Source Tympanic 08/21/21 11:37 Pulse 85 08/21/21 11:37 Pulse Rhythm Irregular 08/21/21 10:19 Pulse 74 08/19/21 20:16 Respiratory Rate 18 08/21/21 11:37 Respiratory Effort 08/21/21 10:19 Respiratory Depth Normal 08/21/21 10:19 Respiratory Pattern Normal 08/21/21 10:19 Blood Pressure 108/67 08/21/21 11:37 Blood Pressure Mean 80 08/19/21 20:16 Blood Pressure Position Sitting 08/19/21 17:14 Pulse Oximetry 90 L 08/21/21 11:37 Oxygen Delivery Method Nasal Cannula 08/21/21 11:37 Oxygen Flow Rate 2 08/21/21 11:37 Pain Level 0 08/21/21 11:37 Intake & Output 08/20/21 08/21/21 08/21/21 23:59 11:59 23:59 Intake Total 240 / 600 510 / 510 Output Total 1250 / 2150 2375 / 2375 Balance -1010 / -1550 -1865 / -1865 Weight 56.8 kg Intake: IV Oral 240 / 600 500 / 500 Output: Urine 1250 / 2150 2375 / 2375 Other: Urine Color Pale Pale Yellow Yellow Urine Appearance Clear Clear Urine Odor None Normal Voiding Methods Toilet Toilet Data Completed and Pending Completed studies during hospitalization [Text1]: Exam(s) XR CHEST 2V PA LATERAL EXAM: XR CHEST 2V PA LATERAL CLINICAL HISTORY: cough, sob, r/o acute disease. TECHNIQUE: 2D digital imaging was performed. COMPARISON: CR XR PORTABLE CHEST AP from 11/16/2018 FINDINGS: There is mild cardiomegaly again noted. Calcified aortic arch again noted. No mediastinal widening. Right lung is clear. Platelike atelectasis noted in the mid left lung field. Also blunting of both costophrenic angles consistent with small bilateral pleural effusions, not previously present. IMPRESSION: Small bilateral pleural effusions.Platelike atelectasis in the mid left lung, more so than previous. DATA REPOSITORY: RADIATION DOSE DELIVERED: Ordered By: Karin Brooks DO CC: Exam(s) XR CHEST 2V PA LATERAL EXAM: XR CHEST 2V PA LATERAL CLINICAL HISTORY: cough, sob, r/o acute disease. TECHNIQUE: 2D digital imaging was performed. COMPARISON: CR XR PORTABLE CHEST AP from 11/16/2018 FINDINGS: There is mild cardiomegaly again noted. Calcified aortic arch again noted. No mediastinal widening. Right lung is clear. Platelike atelectasis noted in the mid left lung field. Also blunting of both costophrenic angles consistent with small bilateral pleural effusions, not previously present. IMPRESSION: Small bilateral pleural effusions.Platelike atelectasis in the mid left lung, more so than previous. DATA REPOSITORY: RADIATION DOSE DELIVERED: Ordered By: Karin Brooks DO EXAM: Comprehensive 2D, Doppler, and color-flow Echocardiogram Patient Location: In-Patient Cath Lab Radiology Technician: Shaylee Lorenzana RDCS (AE) Indications: CHF, Acute respiratory failure Other Information Study Quality: Adequate Conclusion Normal left ventricular wall thickness and chamber size. Estimated ejection fraction is 60%. There are no segmental wall motion abnormalities The right ventricle is mildly dilated. Right ventricular systolic function appears normal The left atrium is mildly to moderately dilated. The right atrium is severely dilated. Trileaflet aortic valve without stenosis or regurgitation Mild mitral annular calcification. Mild mitral regurgitation Normal tricuspid valve with moderate regurgitation. Estimated right ventricular systolic pressure is 63 mmHg Normal pulmonic valve with moderate regurgitation CC: Dictated By: Rene Sampson M.D. 08/20/21805 <Electronically signed by Rene Sampson M.D. in [place]> 08/20/21805 Transcribed By: Rene Sampson MD This is privileged, confidential information intended only for the provider named. Any use or distribution by any person other than this provider is strictly prohibited. If you receive this report in error, please notify us immediately at [phone] and return the original report to us at the address above. Thank-you. Dictated By: Rene Sampson M.D. 08/20/21805 <Electronically signed by Rnee Sampson M.D. in [place]> 08/20/21805 Transcribed By: Rene Sampson MD This is privileged, confidential information intended only for the provider named. Any use or distribution by any person other than this provider is strictly prohibited. If you receive this report in error, please notify us immediately at [phone] and return the original report to us at the address above. Thank-you. Labs on day of discharge: Labs from last 24 hours 08/21/21 07:00 Sodium 140 Potassium 4.4 Chloride 99 Carbon Dioxide 41.9 H Anion Gap -0.9 L BUN 28 H Creatinine 0.7 Estimated GFR/1.73 m2 >= 60.00 Glucose 97 Calcium 9.1 Magnesium 2.4 PFSH All Active Problems Weakness of both legs (Acute) Acute exacerbation of chronic obstructive pulmonary disease (Acute) Hypoxia (Acute) Acute exacerbation of congestive heart failure (Acute) Requires supplemental oxygen (Acute) Hypoxia (Acute) Shortness of breath (Acute) CHF (congestive heart failure) (Chronic) DVT prophylaxis (Acute) Discharge planning issues (Acute) HTN (hypertension) (Chronic) Atrial fibrillation (Chronic) Smoker (Acute) COPD (chronic obstructive pulmonary disease) (Chronic) Lung mass (Acute) Medical History Atrial fibrillation COPD (chronic obstructive pulmonary disease) HTN (hypertension) Hypercholesteremia Lung cancer Lung mass Smoker Family History Father Hemochromatosis Cirrhosis due to hemochromatosis Diabetes Daughter Heart disease [place] in 40s Social History Smoking/Tobacco Use Status: Current every day Tobacco Type: cigarettes Years smoked: 50 Quit status: considering quitting Counseling given: patient declined Smoking risk assessment performed?: Yes Alcohol Intake: never Drug use: Never Substance use type: does not use What type of physical activity do you participate in: none Do you feel safe at home: Yes Do you feel safe in your relationship?: Yes
--- NOTE | 2021-08-21 14:09 | PDOC.CMDIS ---
LACE Index Scoring Tool - Questions: Length of Stay (in days): 2 Acuity (Admit via E.D.?): Yes Comorbidities: Congestive Heart Failure, Chronic Pulmonary Disease E.D. Visits: 2 - Answers: Total Score: 12 Risk of Readmission: High Risk Care Management Discharge Reason for Hospitalization: Acute respiratory failure, CHF Discharge Plan: Siomara will be discharged home with new Home O2-coordinated by RT when medically cleared by provider. She will transport via private vehicle with family. She will follow up with her community providers and discharge plan of care as prescribed. Patient/Family Education Needs: Review discharge instructions, discuss Ask Me Three. Services Needed at Discharge: Oxygen Therapy
== END 2021-08-21 14:37 | disposition home or self-care (01) | DRG 193 ==
LOC: ER 19:21 → MS 20:45
PROVIDERS: Internal Medicine; Admitting Provider Family Medicine; Emergency Provider Physician Assistant; PCP Family Medicine; Visit Provider Family Medicine
DX: J18.9 Pneumonia, unspecified organism (principal); J96.02 Acute respiratory failure with hypercapnia; I50.33 Acute on chronic diastolic (congestive) heart failure; J44.0 Chronic obstructive pulmonary disease with (acute) lower respiratory infection; I48.21 Permanent atrial fibrillation; J44.1 Chronic obstructive pulmonary disease with (acute) exacerbation; I11.0 Hypertensive heart disease with heart failure; F17.210 Nicotine dependence, cigarettes, uncomplicated; Z79.01 Long term (current) use of anticoagulants; I34.0 Nonrheumatic mitral (valve) insufficiency; E87.5 Hyperkalemia; R53.1 Weakness; Z20.822 Contact with and (suspected) exposure to COVID-19
CPT/HCPCS: 36415; 80048; 80053; 87635; 93005; 93306; 94618; 94640; 96374; 96375; 97162; 97530; 99285; 71046; 83735; 83880; 84484; 85025; 93010; 94667; 99223; 99233; 99238; J1940; J2930; J7512; J7620

== ENCOUNTER 2021-08-22 19:43 | Inpatient (IN) | payer MEDICARE, SELFPAY ==
[2021-08-22] VITALS (40 sets, daily range): BP systolic 103–154; BP diastolic 43–88; PULSE 69–106; RESP 7–27; TEMP 36.8; O2SAT 81–100
--- NOTE | 2021-08-22 20:00 | RT.EKG_ITS ---
APPROVED REPORT Exam: Resting ECG Reason for Exam: sob Patient Location: E HR:91 bpm ECG Measurements Heart Rate 91 AXIS VA [id number] P [id number] QRSd 78 QRS 72 QT 365 T 2 QTc 449 Conclusion Atrial fibrillation...V-rate 83- 97, irreg A-activity Anterior infarct, old...Q >40mS, abnormal ST-T, V2-V5 There are no significant changes compared to prior EKG performed on 08/19/2021 at 18:30.
--- NOTE | 2021-08-22 20:00 | ED.GENADUL_ITS ---
Discharge Plan Disposition Patient Disposition: [facility] INPATIENT Condition: Serious Discharge Details Clinical Impression: Acute exacerbation of chronic obstructive pulmonary disease, Acute and chronic respiratory failure ([id number]) Primary Care Provider: Sherwin Ceja ED Provider: Diomedes Valdes [place] Meds and New Rx's Prescriptions: No Action Xarelto 20 mg tablet 20 mg PO QPM Qty: 30 RF: 11 diltiazem HCl 120 mg capsule,extended release 24hr 120 mg PO DAILY RF: 0 lisinopril 10 mg tablet 5 mg PO DAILY RF: 0 prednisone 20 mg tablet 40 mg PO DAILY Qty: 10 RF: 0 atorvastatin [Lipitor] 80 mg Tablet 80 mg PO QPM RF: 0 albuterol sulfate [ProAir HFA] 90 mcg/actuation Hfa Aerosol Inhaler 2 puff INHALATION QID PRNRF: 0 ipratropium-albuterol 0.5 mg-3 mg(2.5 mg base)/3 mL Solution For Nebulization 3 ml UPD Q6H PRN PRN (Reason: shortness of breath or wheezing) Qty: 180 RF: 0 cefpodoxime 200 mg Tablet 200 mg PO BID Qty: 14 RF: 0 pantoprazole 40 mg Tablet,Delayed Release (Dr/Ec) 40 mg PO DAILY@0730 Qty: 30 RF: 0 furosemide [Lasix] 20 mg tablet 20 mg PO DAILY@1400 Qty: 30 RF: 0 Medical Decision Making Patient returns to the hospital with worsening shortness of breath despite oxygen, inhaler, steroids, antibiotics, Lasix. She has diffuse wheezing and rhonchi with prolonged expiratory phase. IV established. Continues on 3 L nasal cannula oxygen. Received DuoNeb treatment in route. Will give 5 mg albuterol nebs here. Repeat laboratory studies. Venous gas ordered. Noncontrast CT scan of chest ordered. EKG rate controlled A. fib unchanged from previous. Patient's laboratory studies significant for worsening PCO2 on venous gas. However, she is a chronic retainer as her bicarb is in the mid 40s and pH is 7.31. Troponin negative. BNP continues to trend down. CT chest shows no infiltrate. She has significant air trapping and small airway disease. She has diffuse calcifications through her arterial system. Due to her worsening PCO2 will trial her on BiPAP. Will discuss with hospitalist for ICU admission. Patient is tolerating the BiPAP. Will receive inline neb of albuterol. Should have repeat VBG in about 4 hours to see if BiPAP is helping at all. Medical Records Medical records reviewed: Yes I reviewed the patient's medical records. Lab Data Lab results reviewed: Yes I reviewed the patient's lab results. ECG Data Attestation: I personally reviewed and interpreted this ECG (s) as follows: Prior ECG tracings: available for review Interpretation: See EKG HPI General Mode of arrival: EMS . Date/Time Provider Initiated Documentation: 08/22/21 19:44 . Limitations to Documentation: no limitations . Information obtained by: patient, RN notes reviewed and old records reviewed . HPI Narrative: Patient presents to the ED with worsening shortness of breath despite discharge from hospital yesterday for same. She was discharged home on oxygen, steroids, antibiotics and with albuterol inhaler. She was diagnosed with COPD exacerbation, CHF, possible pneumonia. She reports she has not been smoking since being home. She has been wearing her oxygen as required. She feels that her breathing is getting worse. She denies fever. She did have chest pain earlier. She called EMS this evening to bring her back to the hospital. Related Data Home Medications Medication Instructions Recorded Confirmed albuterol sulfate [ProAir HFA] 2 puff INHALATION QID PRN 11/09/18 08/22/21 atorvastatin [Lipitor] 80 mg PO QPM 11/09/18 08/22/21 ipratropium-albuterol 3 ml UPD Q6H PRN PRN #180 ml 11/16/18 08/19/21 rivaroxaban 20 mg tablet 20 mg PO QPM #30 tab 03/14/19 08/22/21 diltiazem HCl 120 mg 120 mg PO DAILY 09/21/19 08/22/21 capsule,extended release 24 hr lisinopril 10 mg tablet 5 mg PO DAILY tab 03/18/20 08/22/21 prednisone 40 mg PO DAILY #10 tab 08/18/21 08/22/21 cefpodoxime 200 mg PO BID #14 tab 08/21/21 08/22/21 furosemide [Lasix] 20 mg PO DAILY@1400 #30 tab 08/21/21 08/22/21 pantoprazole 40 mg PO DAILY@0730 #30 tab 08/21/21 08/22/21 Previous Rx's Medication Instructions Recorded ipratropium-albuterol 3 ml UPD Q6H PRN PRN #180 ml 11/16/18 rivaroxaban 20 mg tablet 20 mg PO QPM #30 tab 03/14/19 prednisone 40 mg PO DAILY #10 tab 08/18/21 cefpodoxime 200 mg PO BID #14 tab 08/21/21 furosemide [Lasix] 20 mg PO DAILY@1400 #30 tab 08/21/21 pantoprazole 40 mg PO DAILY@0730 #30 tab 08/21/21 Allergies Allergy/AdvReac Type Severity Reaction Status Date / Time No Known Allergies Allergy Unverified 08/22/21 21:02 General Stated Complaint: RespSymp BOGDAN: 2 Review of Systems Narrative: 06/25 Review of Systems completed and is negative except as stated above in HPI (Systems reviewed: Const, Eyes, ENT, Resp, CV, GI, , MSK, Skin, Neuro) PFSH All Active Problems (Updated 08/22/21 @ 23:13 by Diomedes Valdes MD) Acute and chronic respiratory failure ([id number]) (Acute) Weakness of both legs (Acute) Acute exacerbation of chronic obstructive pulmonary disease (Acute) Hypoxia (Acute) Acute exacerbation of congestive heart failure (Acute) Requires supplemental oxygen (Acute) Hypoxia (Acute) Shortness of breath (Acute) CHF (congestive heart failure) (Chronic) DVT prophylaxis (Acute) Discharge planning issues (Acute) HTN (hypertension) (Chronic) Atrial fibrillation (Chronic) Smoker (Acute) COPD (chronic obstructive pulmonary disease) (Chronic) Medical History Atrial fibrillation COPD (chronic obstructive pulmonary disease) HTN (hypertension) Hypercholesteremia Lung cancer Lung mass Smoker Surgical History S/P appendectomy S/P cholecystectomy S/P hysterectomy Family History Father Hemochromatosis Cirrhosis due to hemochromatosis Diabetes Daughter Heart disease [place] in 40s Social History Smoking/Tobacco Use Status: Current every day Tobacco Type: cigarettes Years smoked: 50 Quit status: considering quitting Counseling given: patient declined Smoking risk assessment performed?: Yes Alcohol Intake: never Drug use: Never Substance use type: does not use What type of physical activity do you participate in: none Do you feel safe at home: Yes Do you feel safe in your relationship?: Yes Exam Narrative Exam Narrative: Const: Frail elderly female in NAD. HEENT: NC/AT. Normal facial exam. Eyes: Normal conjunctiva and sclera. Neck: Supple. Trachea midline. Lungs: Tachypneic with increased work of breathing and prolonged expiratory phase. Diffuse wheezing and rhonchi throughout. Cor: Irregularly irregular with murmur at apex. Good radial pulses. GI: Soft. NT/ND. No guarding or rebound. Back: No CVAT Neuro: A+O x 3. Normal speech, mentation, gait. Cranial nerves II - XII grossly intact. No gross motor or sensory deficit. Ext: No C/C/E. Skin: Warm and dry without rash. Dusky appearance. Course Vital Signs Vital signs: Vital Signs Temperature 98.2 F 08/22/21 19:45 Pulse 97 H 08/22/21 19:45 Respiratory Rate 20 08/22/21 19:45 Blood Pressure 134/63 08/22/21 19:45 Pulse Oximetry 88 L 08/22/21 19:45 Temperature 98.2 F 08/22/21 19:45 Temperature Source Skin 08/22/21 19:45 Pulse 97 H 08/22/21 19:45 Respiratory Rate 20 08/22/21 19:45 Respiratory Effort 08/22/21 19:52 Respiratory Depth Normal 08/22/21 19:52 Blood Pressure 134/63 08/22/21 19:45 Blood Pressure Position Sitting 08/22/21 19:45 Pulse Oximetry 88 L 08/22/21 19:45 Oxygen Delivery Method Nasal Cannula 08/22/21 19:45 Oxygen Flow Rate 3 08/22/21 19:45 Pain Level 0 08/22/21 19:45 Critical Care Time Critical Care Time Critical Care Time: Yes Total Critical Care Time: 45 Attestation: Upon my evaluation, this patient had a high probability of imminent or life- threatening deterioration, which required my direct attention, intervention, and personal management. I have personally provided 45 minutes of critical care time exclusive of time spent on separately billable procedures. Time includes review of laboratory data, radiology results, discussion with consultants, and monitoring for potential decompensation. Interventions were performed as documented above.
--- NOTE | 2021-08-22 20:00 | DI.CT_ITS ---
Exam(s) CT CHEST WO EXAM: CT CHEST WO CLINICAL HISTORY: worsening SOB. TECHNIQUE: Imaging protocol: Axial computed tomography images were obtained and coronal and sagittal reformatted images were created and reviewed. COMPARISON: CT CT CHEST PE CTA from 08/17/2021 FINDINGS: The examination is limited due to patient motion artifact. Tracheobronchial tree: Patent where visualized. Pulmonary parenchyma: The spiculation in the lateral aspect of the right upper lobe appears stable. The atelectasis or infiltrate in the left lingula has improved. The basilar infiltrates and intersti tial edema has largely resolved. No architectural distortion. Mediastinum and Shameka: No dominant adenopathy or fluid collection. Stable mediastinal lymph nodes are noted. Thyroid gland: There is again seen a multinodular thyroid gland which is stable. Pleura: The pleural effusions have resolved. No pneumothorax. Heart: Cardiomegaly. Coronary artery calcifications. No pericardial effusion. Aorta: Thoracic aorta non-dilated. Atherosclerosis. Upper abdomen: Status post cholecystectomy. Lymph nodes: Please see above. Soft tissues: Unremarkable. Bones:Within normal limits for the patient's age. IMPRESSION: 1. Improved appearance of the CT scan of the chest since 08/17/2021. 2. Improved interstitial infiltrates and resolved pleural effusions. RADIATION DOSE DELIVERED: 454.32mGy.cm Total DLP 454.32mGy.cm Total DLP DATA REPOSITORY: All CT scans at this facility are submitted to the National Radiology Data Registry (NRDR) Dose Index Registry (DIR) with the [employer] (ACR). RADIATION OPTIMIZATION: All CT scans at this facility use at least one of these dose optimization te chniques: automated exposure control; mA and/or kV adjustment per patient size (includes targeted exa ms where dose is matched to clinical indication); or iterative reconstruction.
[2021-08-22 21:23] LABS: COVID-19 PCR Negative (Negative); Influenza A PCR Negative (Negative); Influenza B PCR Negative (Negative); RSV PCR Negative (Negative)
[2021-08-22 21:34] LABS: HCO3 (Venous) 50 mmol/L (23-28); O2 Sat (Venous) 68 %; TCO2 (Venous) 44 mmol/L (24-29); pH (Venous) 7.31 (7.31-7.41); pO2 (Venous) 39 mmHg
[2021-08-22 21:35] LABS: BE (Venous) > 15 mmol/L (-2-3); pCO2 (Venous) 98 mmHg (41-51)
[2021-08-22 21:39] LABS: Abs Immature Grans 0.02 10^3/uL (0.0-0.06); Absolute Basophil Count 0.01 10^3/uL (0.0-0.2); Absolute Eosinophil Count 0.04 10^3/uL (0.0-0.7); Absolute Lymphocyte Count 0.79 10^3/uL (1.2-3.4); Absolute Monocyte Count 1.06 10^3/uL (0.1-0.8); Absolute Neutrophil Count 6.86 10^3/uL (1.2-6.7); Basophils % 0.1; Eosinophils % 0.5; HCT 52.4 % (36.0-46.0); HGB 15.8 g/dL (11.2-15.7); Immature Grans % 0.2; MCH 30.7 pg (27.0-33.0); MCHC 30.2 % (32.0-36.0); MCV 101.9 fL (80-95); MPV 10.6 fL (8.0-11.0); Monocytes % 12.1; Neutrophils % 78.1; Nucleated RBC 0 %; Platelet Count 154 10^3/uL (130-400); RBC 5.14 10^6/uL (3.93-5.22); RDW 15.6 % (11.7-14.6); RDW-SD 59.5 fL; WBC 8.78 10^3/uL (4.4-10.8)
[2021-08-22] MEDS: Albuterol 2.5 MG/3 ML INH SOLN VIAL 5 MG UPD (21:45)
[2021-08-22 21:54] LABS: BUN 23 mg/dL (7-18); CREATININE 0.6 mg/dL (0.55-1.02); Calcium 8.7 mg/dL (8.5-10.1); Chloride 100 mmol/L (98-107); Glucose 138 mg/dL (74-106); NT-proBNP 1127 pg/mL (<300); Potassium 4.5 mmol/L (3.5-5.1); Sodium 140 mmol/L (136-145)
[2021-08-22 21:55] LABS: CO2 > 45.0 mmol/L (21.0-32.0); Troponin I < 0.05 ng/mL (<0.06)
--- NOTE | 2021-08-22 22:21 | DI.VRAD_ITS ---
PROCEDURE INFORMATION: Exam: CT Chest Without Contrast; Diagnostic Exam date and time: 08/22/2021 8:16 PM Age: 76 years old Clinical indication: Cough TECHNIQUE: Imaging protocol: Diagnostic computed tomography of the chest without contrast. 3D rendering (Not supervised by radiologist): MIP and/or 3D reconstructed images were created by the technologist. COMPARISON: CT CHEST PE CTA 08/17/2021 5:22 PM FINDINGS: Thyroid: Calcified mass seen within the left thyroid lobe small calcified masses present within the right thyroid lobe and isthmus unchanged compared to prior study.There has been a cholecystectomy. Lungs: There is scarring with spiculated mass seen within the right upper lobe of the lung unchanged compared 08/17/2021. There is heterogeneous attenuation of the pulmonary parenchyma, consistent with air trapping from underlying small airways disease. [id number] centrilobular emphysematous changes are present. Mild diffuse interstitial thickening/scarring present. Pleural spaces: No pneumothorax. No pleural effusion. Heart: There is moderate atherosclerotic calcification of the coronary arteries. Aorta: The aorta demonstrates severe atherosclerotic calcification .The peripheral vasculature demonstrates diffuse marked atherosclerotic calcification. Chronic appearing aortic dissection seen within the proximal abdominal aorta unchanged compared to prior study Lymph nodes: Unremarkable. No enlarged lymph nodes. Bones/joints: The skeletal structures and soft tissues show no evidence of fracture or other acute processes Soft tissues: The soft tissues of the extrathoracic region are unremarkable. Other findings: The upper abdominal viscera are unremarkable.. IMPRESSION: 1. There is heterogeneous attenuation of the pulmonary parenchyma, consistent with air trapping from underlying small airways disease. 2. No significant change compared to 08/17/2021. Dictated and Authenticated by: Vincent Lozada MD. Ordering:ANEL Hercules MD
[2021-08-22] MEDS: LORazepam 2 MG/ML VIAL 0.5 MG IVP (23:11)
[2021-08-22] MEDS: Albuterol 2.5 MG/3 ML INH SOLN VIAL (23:15)
[2021-08-22] MEDS: methylPREDNISolone SUCC 125 MG VIAL IVP (23:53)
[2021-08-23] VITALS (49 sets, daily range): BP systolic 94–129; BP diastolic 43–71; PULSE 63–92; RESP 4–23; TEMP 36.1–36.8; O2SAT 74–97
[2021-08-23 00:12] LABS: HCO3 48 mmol/L (22-26); pH 7.35 (7.35-7.45); pO2 52 mmHg (80-105); sO2 85 % (95-98); tCO2 42 mmol/L (23-27)
[2021-08-23 00:14] LABS: BE > 15 mmol/L (-2-3); FIO2 40 %; Site Right Radial; pCO2 86 mmHg (35-45)
--- NOTE | 2021-08-23 01:07 | W.PM.HP.N ---
Date of service: 08/23/21 Time of Service: 01:30 Assessment and Plan Assessment and plan (1) Acute on chronic respiratory failure with hypoxia and hypercapnia: Status: Acute Assessment and plan: Multifactorial, due to COPD exacerbation as well as cor pulmonale. The patient is improving on BiPAP - her pH is now 7.35, up from 7.30. Continue BiPAP. Treat COPD exacerbation (steroids, scheduled/prn nebs, add symbicort). Diurese. Monitor I/O's and daily weights. While the preliminary ready of the CT does not specifically say fluid overload, clinically she sounds like she has it. (2) Acute exacerbation of chronic obstructive pulmonary disease: Status: Acute Assessment and plan: As above Procalcitonin is negative and cough is nonproductive - no role for abx. Obtain pulmonology and palliative care consults. (3) Acute respiratory acidosis: Status: Acute Assessment and plan: As above. Consider adding a few doses of acetazolamide. (4) Cor pulmonale: Status: Acute Assessment and plan: Diurese. RVSP on echo 08/20/21 was 62.7 mmHg. (5) Pulmonary hypertension: Assessment and plan: As above Would benefit from pulmonology consult (6) Atrial fibrillation: Status: Chronic Assessment and plan: Continue home regimen Qualifiers: Atrial fibrillation type: permanent Qualified Code(s): I48.2 - Chronic atrial fibrillation (7) DVT prophylaxis: Status: Acute Assessment and plan: On therapeutic xarelto (8) Discharge planning issues: Status: Acute Assessment and plan: Full code per my discussion with the patient. Admit to the ICU. Total Critical Care time 60 minutes. 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 She reports a nonproductive cough. While the ED note documented chest pain earlier in the day at home, the patient denies this to me, stating that she just couldn't breathe. Our interview is limited due to the patient being on BiPAP. She does state that her granddaughter filled the prescriptions for only some of her medications, but that she did not fill her inhaler. The patient was found to be rhonchorous, hypoxic and hypercapnic by VBG/ABG. She was placed on BIPAP. Hospitalist admission to the ICU was requested. The patient is reporting pain from the BiPAP mask, but her breathing is better. She is currently on BiPAP 08/16 with FiO2 of 40%, saturating in low 90s. The patient stated in the ED as well as in her conversation with me that she would like to be to full code. Review of Systems All systems reviewed & are unremarkable except as noted in HPI and below PFSH All Active Problems (Updated 08/23/21 @ 01:30 by Eneida Sahu MD) Acute respiratory acidosis (Acute) Acute on chronic respiratory failure with hypoxia and hypercapnia (Acute) Cor pulmonale (Acute) Acute and chronic respiratory failure ([id number]) (Acute) Weakness of both legs (Acute) Acute exacerbation of chronic obstructive pulmonary disease (Acute) Hypoxia (Acute) Acute exacerbation of congestive heart failure (Acute) Requires supplemental oxygen (Acute) Hypoxia (Acute) Shortness of breath (Acute) CHF (congestive heart failure) (Chronic) DVT prophylaxis (Acute) Discharge planning issues (Acute) HTN (hypertension) (Chronic) Atrial fibrillation (Chronic) Smoker (Acute) COPD (chronic obstructive pulmonary disease) (Chronic) Medical History Atrial fibrillation Chronic respiratory failure with hypoxia and hypercapnia COPD (chronic obstructive pulmonary disease) HTN (hypertension) Hypercholesteremia Lung cancer Lung mass Pulmonary hypertension Smoker Surgical History S/P appendectomy S/P cholecystectomy S/P hysterectomy Family History Father Hemochromatosis Cirrhosis due to hemochromatosis Diabetes Daughter Heart disease MT in 40s Social History Smoking/Tobacco Use Status: Current every day Tobacco Type: cigarettes Years smoked: 50 Quit status: considering quitting Counseling given: patient declined Smoking risk assessment performed?: Yes Alcohol Intake: never Drug use: Never Substance use type: does not use What type of physical activity do you participate in: none Do you feel safe at home: Yes Do you feel safe in your relationship?: Yes Meds Allergies and Home Medications Allergies Allergy/AdvReac Type Severity Reaction Status Date / Time No Known Allergies Allergy Unverified 08/22/21 21:02 Home Medications Medication Instructions Recorded Confirmed Type albuterol sulfate [ProAir HFA] 2 puff INHALATION QID PRN 11/09/18 08/22/21 History atorvastatin [Lipitor] 80 mg PO QPM 11/09/18 08/22/21 History ipratropium-albuterol 3 ml UPD Q6H PRN PRN #180 ml 11/16/18 08/19/21 Rx rivaroxaban 20 mg tablet 20 mg PO QPM #30 tab 03/14/19 08/22/21 Rx diltiazem HCl 120 mg 120 mg PO DAILY 09/21/19 08/22/21 History capsule,extended release 24 hr lisinopril 10 mg tablet 5 mg PO DAILY tab 03/18/20 08/22/21 History prednisone 40 mg PO DAILY #10 tab 08/18/21 08/22/21 Rx cefpodoxime 200 mg PO BID #14 tab 08/21/21 08/22/21 Rx furosemide [Lasix] 20 mg PO DAILY@1400 #30 tab 08/21/21 08/22/21 Rx pantoprazole 40 mg PO DAILY@0730 #30 tab 08/21/21 08/22/21 Rx Exam Narrative Exam Narrative: General: Anxious frail elderly female who is on BiPAP, restless, A&Ox3 Neurological: A&Ox3, no focal deficits Psychiatric: Restless Skin: visible skin hyperpigmented, intact HEENT: Atraumatic, normocephalic, EOMI, Unable to examine mucuous membranes due to the patient being on BiPAP, no submandibular or cervical lymphadenopathy, no goiter or JVD Cardiovascular: irregularly irregular rhythm, no m/r/g Lungs: Rhonchi and rales throughout B lung moses Gastrointestinal: soft, nontender, nondistended Genitourinary: deferred Extremities: trace edema at B ankles, +1 pedal pulse B Results Imaging Additional studies: EKG: HR 91, Afib, no acute ischemia CTA chest :1. There is heterogeneous attenuation of the pulmonary parenchyma, consistent with air trapping from underlying small airways disease. 2. No significant change compared to 08/17/2021. Labs Result diagrams: 08/22/21 21:25 08/22/21 21:25 Labs: Laboratory Results - last 24 hr 08/22/21 08/22/21 08/22/21 20:00 20:00 20:25 WBC Cancelled RBC Cancelled Hgb Cancelled Hct Cancelled MCV Cancelled MCH Cancelled MCHC Cancelled RDW Cancelled Plt Count Cancelled MPV Cancelled Immature Gran % Cancelled Neutrophils % Cancelled Band Neutrophils % Cancelled Lymphocytes % Cancelled Atypical Lymphs % Cancelled Monocytes % Cancelled Eosinophils % Cancelled Basophils % Cancelled Metamyelocytes % Cancelled Myelocytes % Cancelled Promyelocytes % Cancelled Other Cells % Cancelled Nucleated RBC % Cancelled Absolute Neutrophils Cancelled Absolute Lymphocytes Cancelled Absolute Monocytes Cancelled Absolute Eosinophils Cancelled Absolute Basophils Cancelled RBC Morphology Cancelled Polychromasia Cancelled Hypochromasia Cancelled Poikilocytosis Cancelled Basophilic Stippling Cancelled Anisocytosis Cancelled Microcytosis Cancelled Macrocytosis Cancelled Spherocytes Cancelled Tear Drop Cells Cancelled Ovalocytes Cancelled Stomatocytes Cancelled [place] Bodies Cancelled [place] Cells/Echinocytes Cancelled Acanthocytes (Spur) Cancelled Schistocytes Cancelled ABG Sample Site ABG pH ABG pCO2 ABG pO2 ABG HCO3 ABG Total CO2 ABG O2 Saturation ABG Base Excess VBG pH VBG pCO2 VBG pO2 VBG HCO3 VBG Total CO2 VBG O2 Saturation VBG Base Excess Oxygen Liter Flow FiO2 Sodium Cancelled Potassium Cancelled Chloride Cancelled Carbon Dioxide Cancelled Anion Gap Cancelled BUN Cancelled Creatinine Cancelled Estimated GFR/1.73 m2 Cancelled Glucose Cancelled Calcium Cancelled Troponin I NT-Pro-B Natriuret Pep Cancelled COVID-19 Source NASOPHARYX SARS-CoV-2 (PCR) Negative Influenza Type A (PCR) Negative Influenza Type B (PCR) Negative RSV (PCR) Negative 08/22/21 08/22/21 08/22/21 20:30 20:40 20:40 WBC Cancelled RBC Cancelled Hgb Cancelled Hct Cancelled MCV Cancelled MCH Cancelled MCHC Cancelled RDW Cancelled Plt Count Cancelled MPV Cancelled Immature Gran % Cancelled Neutrophils % Cancelled Band Neutrophils % Cancelled Lymphocytes % Cancelled Atypical Lymphs % Cancelled Monocytes % Cancelled Eosinophils % Cancelled Basophils % Cancelled Metamyelocytes % Cancelled Myelocytes % Cancelled Promyelocytes % Cancelled Other Cells % Cancelled Nucleated RBC % Cancelled Absolute Neutrophils Cancelled Absolute Lymphocytes Cancelled Absolute Monocytes Cancelled Absolute Eosinophils Cancelled Absolute Basophils Cancelled RBC Morphology Cancelled Polychromasia Cancelled Hypochromasia Cancelled Poikilocytosis Cancelled Basophilic Stippling Cancelled Anisocytosis Cancelled Microcytosis Cancelled Macrocytosis Cancelled Spherocytes Cancelled Tear Drop Cells Cancelled Ovalocytes Cancelled Stomatocytes Cancelled [place] Bodies Cancelled [place] Cells/Echinocytes Cancelled Acanthocytes (Spur) Cancelled Schistocytes Cancelled ABG Sample Site ABG pH ABG pCO2 ABG pO2 ABG HCO3 ABG Total CO2 ABG O2 Saturation ABG Base Excess VBG pH Cancelled VBG pCO2 Cancelled VBG pO2 Cancelled VBG HCO3 Cancelled VBG Total CO2 Cancelled VBG O2 Saturation Cancelled VBG Base Excess Cancelled Oxygen Liter Flow FiO2 Sodium Cancelled Potassium Cancelled Chloride Cancelled Carbon Dioxide Cancelled Anion Gap Cancelled BUN Cancelled Creatinine Cancelled Estimated GFR/1.73 m2 Cancelled Glucose Cancelled Calcium Cancelled Troponin I Cancelled NT-Pro-B Natriuret Pep Cancelled COVID-19 Source SARS-CoV-2 (PCR) Influenza Type A (PCR) Influenza Type B (PCR) RSV (PCR) 08/22/21 08/22/21 08/22/21 20:40 21:25 21:25 WBC 8.78 RBC 5.14 Hgb 15.8 H Hct 52.4 H MCV 101.9 H MCH 30.7 MCHC 30.2 L RDW 15.6 H Plt Count 154 MPV 10.6 Immature Gran % 0.2 Neutrophils % 78.1 Band Neutrophils % Lymphocytes % 9.0 Atypical Lymphs % Monocytes % 12.1 Eosinophils % 0.5 Basophils % 0.1 Metamyelocytes % Myelocytes % Promyelocytes % Other Cells % Nucleated RBC % 0 Absolute Neutrophils 6.86 H Absolute Lymphocytes 0.79 L Absolute Monocytes 1.06 H Absolute Eosinophils 0.04 Absolute Basophils 0.01 RBC Morphology Polychromasia Hypochromasia Poikilocytosis Basophilic Stippling Anisocytosis Microcytosis Macrocytosis Spherocytes Tear Drop Cells Ovalocytes Stomatocytes [place] Bodies [place] Cells/Echinocytes Acanthocytes (Spur) Schistocytes ABG Sample Site ABG pH ABG pCO2 ABG pO2 ABG HCO3 ABG Total CO2 ABG O2 Saturation ABG Base Excess VBG pH Cancelled VBG pCO2 Cancelled VBG pO2 Cancelled VBG HCO3 Cancelled VBG Total CO2 Cancelled VBG O2 Saturation Cancelled VBG Base Excess Cancelled Oxygen Liter Flow FiO2 Sodium 140 Potassium 4.5 Chloride 100 Carbon Dioxide > 45.0 H Anion Gap -5.20646 L BUN 23 H Creatinine 0.6 Estimated GFR/1.73 m2 >= 60.00 Glucose 138 H Calcium 8.7 Troponin I < 0.05 NT-Pro-B Natriuret Pep 1127 H COVID-19 Source SARS-CoV-2 (PCR) Influenza Type A (PCR) Influenza Type B (PCR) RSV (PCR) 08/22/21 08/23/21 21:25 00:09 WBC RBC Hgb Hct MCV MCH MCHC RDW Plt Count MPV Immature Gran % Neutrophils % Band Neutrophils % Lymphocytes % Atypical Lymphs % Monocytes % Eosinophils % Basophils % Metamyelocytes % Myelocytes % Promyelocytes % Other Cells % Nucleated RBC % Absolute Neutrophils Absolute Lymphocytes Absolute Monocytes Absolute Eosinophils Absolute Basophils RBC Morphology Polychromasia Hypochromasia Poikilocytosis Basophilic Stippling Anisocytosis Microcytosis Macrocytosis Spherocytes Tear Drop Cells Ovalocytes Stomatocytes [place] Bodies [place]ley Cells/Echinocytes Acanthocytes (Spur) Schistocytes ABG Sample Site Right Radial ABG pH 7.35 ABG pCO2 86 H* ABG pO2 52 L ABG HCO3 48 H ABG Total CO2 42 H ABG O2 Saturation 85 L ABG Base Excess > 15 H VBG pH 7.31 VBG pCO2 98 H* VBG pO2 39 VBG HCO3 50 H VBG Total CO2 44 H VBG O2 Saturation 68 VBG Base Excess > 15 H Oxygen Liter Flow BIPAP 12/5 FiO2 40 Sodium Potassium Chloride Carbon Dioxide Anion Gap BUN Creatinine Estimated GFR/1.73 m2 Glucose Calcium Troponin I NT-Pro-B Natriuret Pep COVID-19 Source SARS-CoV-2 (PCR) Influenza Type A (PCR) Influenza Type B (PCR) RSV (PCR) Last Vital Signs Temp 36.8 C 08/22/21 19:45 Pulse 71 08/23/21 00:40 Resp 18 08/23/21 00:40 BP 137/52 L 08/22/21 21:37 Pulse Ox 91 L 08/23/21 00:40
[2021-08-23 01:30] LABS: Troponin I < 0.05 ng/mL (<0.06)
[2021-08-23] MEDS: Furosemide 40 MG/4 ML VIAL IVP ×3 (01:43→16:44)
[2021-08-23] MEDS: Normal Saline Flush 10 ML SYR IVP ×5 (01:44→20:00)
[2021-08-23] MEDS: LORazepam 2 MG/ML VIAL 0.5 MG IVP (01:44)
[2021-08-23] MEDS: Albuterol/Ipratropium 3 ML UPD VIAL UPD ×2 (07:22→17:55)
[2021-08-23] MEDS: methylPREDNISolone SUCC 125 MG VIAL 60 MG IVP ×2 (08:09→16:44)
[2021-08-23] MEDS: Pantoprazole 40 MG TABCR PO (08:19)
[2021-08-23] MEDS: Budesonide/Formoterol 80/4.5 6.9 GM 60 PUFF INH IH ×2 (08:30→20:00)
--- NOTE | 2021-08-23 08:33 | INITIAL_ITS ---
- If Service Date Differs Date of service: 08/23/21 Time of Service: 16:27 Care Management Initial Assess REASON FOR HOSPITALIZATION:: Acute on chronic combined respiratory failure, COPD PAST MEDICAL HISTORY/PAST SURGICAL HISTORY:: Afib, CHF, chronic respiratory failure with hypoxia and hypercapnia, COPD, HTN, lung cancer, lung mass, pulmonary hypertension, current smoker, appendectomy, cholecystectomy, hysterectomy PREVIOUS FUNCTIONAL STATUS/SOCIAL/FAMILY SUPPORTS:: Siomara resides alone in [facility]. She is independent at baseline with ADLS and transports herself. This is her third admission to [facility] this month and she now has home O2. Her grandson and granddaughter live closeby and are supportive of her healthcare needs. CURRENT FUNCTIONAL STATUS:: Siomara is on BIPAP when CM attempts to meet with her, which makes discussion difficult at this time. CM will continue to follow. ADVANCE DIRECTIVES:: On file at [facility]: agent Bulmaro Quinones. Has patient been provided with info about the portal/API?: Yes Did the patient sign up for the portal?: No CODE STATUS:: Full Code INSURANCE COVERAGE / FINANCIAL ISSUES:: AARP/[email or web address] [employer]. CMR CURRENT HOME/COMMUNITY SERVICES/EQUIPMENT:: Home O2 PRIMARY CARE PHYSICIAN:: Sherwin Ceja POTENTIAL DISCHARGE NEEDS:: Discussion re: re-admissions, potential for increased services. PATIENT/FAMILY EDUCATION NEEDS:: Review discharge instructions, discuss Ask Me Three. ANTICIPATED BARRIERS TO DISCHARGE:: None identifed. TRANSPORTATION:: Via private vehicle with family. PLAN:: Siomara will discharge home with resumption of home O2 when medically cleared by provider. She will transport via private vehicle with family. She will follow up with her community providers and discharge plan of care as prescribed. Readmission - Within the Past 30 Days Yes or No: Y - Date of First Admission Date of 1st Admission: 08/17/21 (Left AMA. Re-admit 08/19-08/21) - Date of this Admission Date of Admission: 08/22/21 This admission was: Through ED - Office Visit Since 1st Admission Have you seen your PCP in the office since discharge?: No Had an appointment Been Scheduled?: No - Speicalist Appointments Have you seen any other specialist since your 1st Admission?: No Date you saw the Specialist: Pulmonology scheduled 10/23/21 - I. Interview patient and/or Family Have you had trouble purchasing/ or taking medication?: Yes Describe barriers fpr purchasing or taking medication: She does state that her granddaughter filled the prescriptions for only some of her medications, but that she did not fill her inhaler. Have you had trouble with getting meals at home?: No Did you feel ready for discharge when you left the last time: Yes Were services received that you thought were set up on disch: Yes What services were received?: Home O2 Did you call your physician beore you came to the ED?: No (SOB ) How do you think you became sick enough to come back?: Worsening SOB - ED visits How many ED visits in the past 12 months: 3 (Since 08/17/21) - Assessment for Readmission Summary of readmission circumstances, based upon interviews: Left AMA 08/18 she attributes to anxiety, refused O2. DC'd again 08/21, re-admitted 08/22 with acute exacerbation of chronic obstructive pulmonary disease, Acute and chronic respiratory failure ([id number]) Patient's laboratory studies significant for worsening PCO2 on venous gas. However, she is a chronic retainer as her bicarb is in the mid 40s and pH is 7.31. Patient returns to the hospital with worsening shortness of breath despite oxygen, inhaler, steroids, antibiotics, Lasix. She has diffuse wheezing and rhonchi with prolonged expiratory phase. IV established. Continues on 3 L nasal cannula oxygen. Received DuoNeb treatment in route. Will give 5 mg albuterol nebs here. The patient was found to be rhonchorous, hypoxic and hypercapnic by VBG/ABG. She was placed on BIPAP. Hospitalist admission to the ICU was requested. The patient is reporting pain from the BiPAP mask, but her breathing is better. She is currently on BiPAP 12/5 with FiO2 of 40%, saturating in low 90s. Smoker with lung mass, lung cancer, hx of non-compliance, AMA discharge, did not fill prescription for inhaler per report.
--- NOTE | 2021-08-23 08:36 | NUR.NOTE ---
Patient taken off BIPAP so that neb could be given, inhaler could be given, medications could be given and breakfast could be eaten.Nursing Note:
--- NOTE | 2021-08-23 09:08 | NUR.NOTE ---
RN offers to get patient out of bed. Patient is quite tired. Patient will be allowed to sleep for awhile and rest. RN will get patient to chair in a couple of hours. Telephonic updates given to family members.Nursing Note:
[2021-08-23 10:18] LABS: HCO3 (Venous) 48 mmol/L (23-28); O2 Sat (Venous) 81 %; TCO2 (Venous) 43 mmol/L (24-29); pH (Venous) 7.35 (7.31-7.41); pO2 (Venous) 47 mmHg
[2021-08-23 10:20] LABS: BE (Venous) > 15 mmol/L (-2-3)
[2021-08-23 10:21] LABS: Abs Immature Grans 0.02 10^3/uL (0.0-0.06); Absolute Lymphocyte Count 0.18 10^3/uL (1.2-3.4); Absolute Monocyte Count 0.05 10^3/uL (0.1-0.8); HCT 51.4 % (36.0-46.0); HGB 15.7 g/dL (11.2-15.7); Immature Grans % 0.3; Lymphocytes % 3.1; MCH 30.6 pg (27.0-33.0); MCHC 30.5 % (32.0-36.0); MCV 100.2 fL (80-95); MPV 10.8 fL (8.0-11.0); Monocytes % 0.9; Neutrophils % 95.7; Nucleated RBC 0 %; RBC 5.13 10^6/uL (3.93-5.22); RDW 15.3 % (11.7-14.6); RDW-SD 57.6 fL; WBC 5.85 10^3/uL (4.4-10.8)
[2021-08-23 10:24] LABS: pCO2 (Venous) 88 mmHg (41-51)
[2021-08-23 10:25] LABS: Platelet Count 123 10^3/uL (130-400)
[2021-08-23 10:28] LABS: BUN 21 mg/dL (7-18); CREATININE 0.8 mg/dL (0.55-1.02); Calcium 8.7 mg/dL (8.5-10.1); Chloride 97 mmol/L (98-107); Glucose 184 mg/dL (74-106); Magnesium 2.1 mg/dL (1.8-2.4); Potassium 4.2 mmol/L (3.5-5.1); Sodium 141 mmol/L (136-145)
[2021-08-23 10:29] LABS: CO2 > 45.0 mmol/L (21.0-32.0)
[2021-08-23] MEDS: Rivaroxaban 10 MG TABLET 20 MG PO (20:00)
[2021-08-24] VITALS (10 sets, daily range): BP systolic 98–126; BP diastolic 60–76; PULSE 72–85; RESP 4–18; TEMP 36.2–36.8; O2SAT 89–92
[2021-08-24] MEDS: methylPREDNISolone SUCC 125 MG VIAL 60 MG IVP ×2 (01:27→09:20)
[2021-08-24] MEDS: Normal Saline Flush 10 ML SYR IVP ×3 (01:29→20:31)
[2021-08-24] MEDS: Albuterol/Ipratropium 3 ML UPD VIAL UPD ×2 (01:30→05:05)
[2021-08-24] MEDS: Milk of Magnesia 30 ML CUP PO (05:05)
[2021-08-24 07:37] LABS: pH (Venous) 7.43 (7.31-7.41)
[2021-08-24 07:38] LABS: BE (Venous) 27 mmol/L (-2-3); HCO3 (Venous) 51 mmol/L (23-28); O2 Sat (Venous) 91 %; TCO2 (Venous) > 50 mmol/l (24-29); pO2 (Venous) 63 mmHg
[2021-08-24 07:40] LABS: pCO2 (Venous) 77 mmHg (41-51)
--- NOTE | 2021-08-24 07:49 | PCNE_ITS ---
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 She reports a nonproductive cough. While the ED note documented chest pain earlier in the day at home, the patient denies this to me, stating that she just couldn't breathe. Our interview is limited due to the patient being on BiPAP. She does state that her granddaughter filled the prescriptions for only some of her medications, but that she did not fill her inhaler. The patient was found to be rhonchorous, hypoxic and hypercapnic by VBG/ABG. She was placed on BIPAP. Hospitalist admission to the ICU was requested. The patient is reporting pain from the BiPAP mask, but her breathing is better. She is currently on BiPAP 08/16 with FiO2 of 40%, saturating in low 90s. The patient stated in the ED as well as in her conversation with me that she would like to be to full code Interim Hx: Siomara stated that after returning to the hospital 3 times in the last week due to shortness of breath she thought she should stay and see what could be done so that she could feel better and remain at home. She was happy because her son Monie rodrigues from [place] did come to visit. She does have a granddaughter who helps her. She is looking forward to getting home and being with her dogs. Staff states that she did well with the BiPAP. She feels it is all she needs to go home his oxygen. Siomara states that she is presently retired. 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 She said recently she use the snowblower to clear her driveway/sidewalk due to the recent snow. She says she is fine at home, can take care of herself, and is looking forward to going back. She continues to smoke. She states that on the most recent admission her legs became very very weak and she became lightheaded. She came to the emergency room because of her increasing shortness of breath. She has had longstanding COPD and CHF. She really did not think that she wanted CPR. She knows she does not want to be intubated and in the ICU. She wants to talk to her son Hayden about this Consults Consult date: 08/24/21 Requesting physician: Eneida Sahu Assessment and Plan Assessment and plan (1) Acute on chronic respiratory failure with hypoxia and hypercapnia: Status: Acute (2) Acute exacerbation of congestive heart failure: Status: Acute (3) Requires supplemental oxygen: Status: Acute (4) Atrial fibrillation: Status: Chronic Qualifiers: Atrial fibrillation type: permanent Qualified Code(s): I48.2 - Chronic atrial fibrillation (5) Smoker: Status: Acute (6) Pulmonary hypertension: Status: Acute (7) Palliative care patient: Status: Acute Assessment and plan: 76-year-old woman with hypercapnic hypoxia, nonsmall cell lung cancer, pulmonary hypertension and congestive heart failure. Although I talked to her about going home with a trilogy machine, she kept telling me that all she needed was supplemental oxygen. She was absolutely certain that she did not need anything but oxygen. I talked to her about her high CO2, she again reiterated that all she needs is oxygen. I did explain that I thought that she would be going home with another machine so that she could better ventilate and keep her oxygen and carbon dioxide level better regulated. She again insisted that all she needed was oxygen. We did discuss CODE STATUS. She did not understand what CPR was initially. She did state that she does not want to be intubated and put into an ICU. She was fairly clear that she did not want extraordinary means of keeping her alive. She was very happy with her care up until this point. She wanted to discuss with her son Hayden regarding her choices of CPR versus DNR. It was decided that I left her the POLST form and recommended that we get together in the future after she has had a chance to talk with Hayden. She was in agreement with this plan. She very much wants to get back to her dogs. Atrial fibrillation?continue on the Xarelto Pneumonia continue with the Zithromax Nonsmall cell lung cancer?uncertain about the present or future treatment at this nak you very much for this consult. I will follow up out patient regarding code status. It would probably be best if her son Hayden was on the phone with us. Review of Systems Narrative: Siomara states that she feels better and wants to go home. She said she has what she needs at home and does have help through her granddaughter. She has been walking around her room and feels strong. She has no chest pain no shortness of breath is considerably less PFSH All Active Problems (Updated 08/24/21 @ 11:28 by Leigha Newton MD) NSCLC of right lung (Acute) Palliative care patient (Acute) Pulmonary hypertension (Acute) Acute respiratory acidosis (Acute) Acute on chronic respiratory failure with hypoxia and hypercapnia (Acute) Cor pulmonale (Acute) Acute and chronic respiratory failure ([id number]) (Acute) Weakness of both legs (Acute) Acute exacerbation of chronic obstructive pulmonary disease (Acute) Hypoxia (Acute) Acute exacerbation of congestive heart failure (Acute) Requires supplemental oxygen (Acute) Hypoxia (Acute) Shortness of breath (Acute) CHF (congestive heart failure) (Chronic) DVT prophylaxis (Acute) Discharge planning issues (Acute) HTN (hypertension) (Chronic) Atrial fibrillation (Chronic) Smoker (Acute) COPD (chronic obstructive pulmonary disease) (Chronic) Medical History Atrial fibrillation Chronic respiratory failure with hypoxia and hypercapnia COPD (chronic obstructive pulmonary disease) HTN (hypertension) Hypercholesteremia Lung cancer Lung mass Pulmonary hypertension Smoker Surgical History S/P appendectomy S/P cholecystectomy S/P hysterectomy Family History Father Hemochromatosis Cirrhosis due to hemochromatosis Diabetes Daughter Heart disease [place] in 40s Social History Smoking/Tobacco Use Status: Current every day Tobacco Type: cigarettes Years sm oked: 50 Quit status: considering quitting Counseling given: patient declined Smoking risk assessment performed?: Yes Alcohol Intake: never Drug use: Never Substance use type: does not use What type of physical activity do you participate in: none Do you feel safe at home: Yes Do you feel safe in your relationship?: Yes Exam Narrative Exam Narrative: She is sitting on her bed. She has oxygen nearby. She is speaking in complete sentences. Her heart is regular. Her abdomen soft nontender. She does not have any lower extremity edema Results Last Vital Signs Temp 97.2 F L 08/24/21 07:43 Pulse 85 08/24/21 07:43 Resp 16 08/24/21 07:43 BP 110/65 08/24/21 07:43 Pulse Ox 91 L 08/24/21 07:43 Laboratory Tests 08/22/21 08/23/21 08/23/21 21:25 10:10 10:10 WBC 5.85 D Hct 51.4 H VBG pH VBG pCO2 98 H* Carbon Dioxide > 45.0 H Creatinine 0.8 08/24/21 07:23 WBC Hct VBG pH 7.43 H VBG pCO2 77 H* Carbon Dioxide Creatinine CT Scan INDINGS: The examination is limited due to patient motion artifact. Tracheobronchial tree: Patent where visualized. Pulmonary parenchyma: The spiculation in the lateral aspect of the right upper lobe appears stable. The atelectasis or infiltrate in the left lingula has improved. The basilar infiltrates and interstitial edema has largely resolved. No architectural distortion. Mediastinum and Shameka: No dominant adenopathy or fluid collection. Stable med iastinal lymph nodes are noted. Thyroid gland: There is again seen a multinodular thyroid gland which is stable. Pleura: The pleural effusions have resolved. No pneumothorax. Heart: Cardiomegaly. Coronary artery calcifications. No pericardial effusion. Aorta: Thoracic aorta non-dilated. Atherosclerosis. Upper abdomen: Status post cholecystectomy. Lymph nodes: Please see above. Soft tissues: Unremarkable. Bones:Within normal limits for the patient's age. IMPRESSION: 1. Improved appearance of the CT scan of the chest since 08/17/2021. 2. Improved interstitial infiltrates and resolved pleural effusions. ECHO Conclusion Normal left ventricular wall thickness and chamber size. Estimated ejection fraction is 60%. There are no segmental wall motion abnormalities The right ventricle is mildly dilated. Right ventricular systolic function appears normal The left atrium is mildly to moderately dilated. The right atrium is severely dilated. Trileaflet aortic valve without stenosis or regurgitation Mild mitral annular calcification. Mild mitral regurgitation Normal tricuspid valve with moderate regurgitation. Estimated right ventricular systolic pressure is 63 mmHg Normal pulmonic valve with moderate regurgitation Labs Result diagrams: 08/23/21 10:10 08/23/21 10:10 Labs: Laboratory Results - last 24 hr 08/23/21 08/23/21 08/23/21 10:10 10:10 10:10 WBC 5.85 D RBC 5.13 Hgb 15.7 Hct 51.4 H MCV 100.2 H MCH 30.6 MCHC 30.5 L RDW 15.3 H Plt Count 123 L MPV 10.8 Immature Gran % 0.3 Neutrophils % 95.7 Lymphocytes % 3.1 Monocytes % 0.9 Eosinophils % 0.0 Basophils % 0.0 Nucleated RBC % 0 Absolute Neutrophils 5.60 Absolute Lymphocytes 0.18 L Absolute Monocytes 0.05 L Absolute Eosinophils 0.00 Absolute Basophils 0.00 VBG pH 7.35 VBG pCO2 88 H* VBG pO2 47 VBG HCO3 48 H VBG Total CO2 43 H VBG O2 Saturation 81 VBG Base Excess > 15 H Sodium 141 Potassium 4.2 Chloride 97 L Carbon Dioxide > 45.0 H Anion Gap BUN 21 H Creatinine 0.8 Estimated GFR/1.73 m2 >= 60.00 Glucose 184 H Calcium 8.7 Magnesium 2.1 08/24/21 07:23 WBC RBC Hgb Hct MCV MCH MCHC RDW Plt Count MPV Immature Gran % Neutrophils % Lymphocytes % Monocytes % Eosinophils % Basophils % Nucleated RBC % Absolute Neutrophils Absolute Lymphocytes Absolute Monocytes Absolute Eosinophils Absolute Basophils VBG pH 7.43 H VBG pCO2 77 H* VBG pO2 63 VBG HCO3 51 H VBG Total CO2 > 50 H VBG O2 Saturation 91 VBG Base Excess 27 H Sodium Potassium Chloride Carbon Dioxide Anion Gap BUN Creatinine Estimated GFR/1.73 m2 Glucose Calcium Magnesium
[2021-08-24] MEDS: Furosemide 40 MG/4 ML VIAL IVP (09:20)
[2021-08-24] MEDS: Pantoprazole 40 MG TABCR PO (09:21)
--- NOTE | 2021-08-24 09:32 | W.PULMCON ---
General Date Of Service Date of service: 08/24/21 Time of Service: 08:15 Reason for Consult: Hypercapnic respiratory failure COPD exacerbation Assessment and Plan Assessment and plan (1) Pulmonary hypertension: Status: Acute (2) Acute on chronic respiratory failure with hypoxia and hypercapnia: Status: Acute (3) Acute exacerbation of chronic obstructive pulmonary disease: Status: Acute (4) Smoker: Status: Acute (5) Atrial fibrillation: Status: Chronic Qualifiers: Atrial fibrillation type: permanent Qualified Code(s): I48.2 - Chronic atrial fibrillation (6) NSCLC of right lung: Status: Acute Assessment and plan: This is a 76 yo female with pHTN, COPD, NSCLC and chronic hypoxic and hypercapnic respiratory failure admitted for a COPD exacerbation and respiratory failure. She has had multiple admissions necessitating BiPAP use. It is medically necessary and beneficial that SHE receive NIV via Trilogy VALENTÍN for outpatient usage due to her chronic respiratory failure with hypoxia secondary to severe COPD. Shakira experiences on going periods of shortness of breath, lethargy, frequent hospitalizations and an overall poor quality of life and her disease process will inevitability worsen. A traditional PAP of BiPAP would not be the most effective device in treating her current chronic issues, TOMASA is not an underlying cause contributing to any of her current complex chronic respiratory issues. Trilogy VALENTÍN will allow for two different NIV prescriptions one to use during the day/wakefulness (MPV) and one to use when sleeping (AVAPS-AE), both of these modes are only found within the Trilogy VALENT[facility]N NIV device. AVAPS-AE will assist her with meeting the demands of a tidal volume and minute ventilation by allowing a longer expiratory time reducing the effects of flow limitation and air trapping, decrease her current work of breathing, decrease CO2 retention, increase her oxygenation and most importantly improve her current quality of life. Mouth piece ventilation (MPV) will allow the patient to Sip and Puff breaths during the daytime periods when she finds herself short of breath and needing extra support. It is medically necessary that she use the NIV via the [employer] VALENTÍN up to 24 hours daily (MPV/AVAPS-AE). The Trilogy operates on a battery so she can use the therapy uninterrupted for medical appointments or even during power outages as a lapse in use may lead to life threatening consequences. Acute on chronic hypoxic and hypercapnic respiratory failure - will work on getting NIV home therapy for her COPD Exacerbation - change IV methylpred to 40mg prednisone daily with the following taper: - 40mg for 7 days, 30mg for 5 days, 20mg for 3 days, 10mg for 3 days, 5mg for 3 days - recommend 5 day course of azithromycin - recommend Symbicort 80-4.5 2 puffs bid - recommend Spiriva 2.5 1 puff daily - recommend albuterol prn - smoking cessation NSCLC - continue to follow with radiation oncology at [facility] History of Present Illness Narrative: This is a 76-year-old female with a history of right upper lobe non-small cell lung cancer status post 5 doses of radiation, smoking (50 pack years), COPD (FEV1 45%) and pulmonary hypertension (RVSP 63mmHg) who has been admitted several times for COPD exacerbation in the last couple of weeks. She was only using albuterol prn at home for management of her COPD. She does continue to smoke but states she has quit 1 week ago. She required BiPAP during this hospitalization for her exacerbation and was also treated with steroids, nebulizers and Symbicort. She last saw heme/onc 1 year ago and per report she was stable with no active signs of malignancy. She was recommended to return to their clinic in 4 months but instead has been following with radiation oncology, with her last visit being 01/22/21 via telehealth. She has also seen Dr. Hooks in the past, with their last visit in 2019. At that time she was supposed to be on Trelegy. Today she is feeling much better since her admission. She feels as though her breathing has improved. We spent a significant amount of time discussing treatment options to keep her out of the hospital, and she is agreeable to getting a mask to wear at night time. Review of imaging and data: Chest CT 08/22/21 IMPRESSION: 1. Improved appearance of the CT scan of the chest since 08/17/2021. 2. Improved interstitial infiltrates and resolved pleural effusions. TTE 08/20/21 Conclusion Normal left ventricular wall thickness and chamber size. Estimated ejection fraction is 60%. There are no segmental wall motion abnormalities The right ventricle is mildly dilated. Right ventricular systolic function appears normal The left atrium is mildly to moderately dilated. The right atrium is severely dilated. Trileaflet aortic valve without stenosis or regurgitation Mild mitral annular calcification. Mild mitral regurgitation Normal tricuspid valve with moderate regurgitation. Estimated right ventricular systolic pressure is 63 mmHg Normal pulmonic valve with moderate regurgitation Chest CT 12/07/18: 3cm spiculated RUL mass New bilateral effusion R>L, multiple new intrapulmonary nodules in left lung, increase in mediastinal LAD PET 12/18/18: Spiculated hypermetabolic 3cm RUL mass. Right hilar and mediastinal lymph nodes demonstrate intermediate avidity. 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 EBUS 01/22/19 4R, 4L, 7, 11R - no carcinoma seen VQ 01/30/19: RUL perfusion 29% of total lung perfusion. Review of Systems All systems reviewed & are unremarkable except as noted in HPI and below PFSH All Active Problems (Updated 08/24/21 @ 11:28 by Leigha Newton MD) NSCLC of right lung (Acute) Palliative care patient (Acute) Pulmonary hypertension (Acute) Acute respiratory acidosis (Acute) Acute on chronic respiratory failure with hypoxia and hypercapnia (Acute) Cor pulmonale (Acute) Acute and chronic respiratory failure ([id number]) (Acute) Weakness of both legs (Acute) Acute exacerbation of chronic obstructive pulmonary disease (Acute) Hypoxia (Acute) Acute exacerbation of congestive heart failure (Acute) Requires supplemental oxygen (Acute) Hypoxia (Acute) Shortness of breath (Acute) CHF (congestive heart failure) (Chronic) DVT prophylaxis (Acute) Discharge planning issues (Acute) HTN (hypertension) (Chronic) Atrial fibrillation (Chronic) Smoker (Acute) COPD (chronic obstructive pulmonary disease) (Chronic) Medical History Atrial fibrillation Chronic respiratory failure with hypoxia and hypercapnia COPD (chronic obstructive pulmonary disease) HTN (hypertension) Hypercholesteremia Lung cancer Lung mass Pulmonary hypertension Smoker Surgical History S/P appendectomy S/P cholecystectomy S/P hysterectomy Family History Father Hemochromatosis Cirrhosis due to hemochromatosis Diabetes Daughter Heart disease [place] in 40s Social History Smoking/Tobacco Use Status: Current every day Tobacco Type: cigarettes Years smoked: 50 Quit status: considering quitting Counseling given: patient declined Smoking risk assessment performed?: Yes Alcohol Intake: never Drug use: Never Substance use type: does not use What type of physical activity do you participate in: none Do you feel safe at home: Yes Do you feel safe in your relationship?: Yes Visit Medication and Allergies Active Medications Generic Name Dose Route Start Last Admin Trade Name Freq PRN Reason Stop Dose Admin Acetaminophen 0 mg 08/22/21 23:34 Acetaminophen 325 Mg Tab PO Q4H PRN PRN Al Hydrox/Mg Hydrox/Simethicone 30 ml 08/22/21 23:34 Mylanta Suspension 30 Ml Cup PO Q2H PRN PRN Albuterol Sulfate 2.5 mg 08/22/21 23:34 Albuterol 2.5 Mg/3 Ml Inh Soln Vial UPD Q2H PRN PRN Albuterol/Ipratropium 3 ml 08/23/21 06:00 08/24/21 05:05 Albuterol/Ipratropium 3 Ml Upd Vial UPD 3 ml Q6H MAURA Administration Budesonide/Formoterol Fumarate 2 puff 08/23/21 08:30 08/23/21 20:00 Budesonide/Formoterol 80/4.5 6.9 Gm 60 Puff Inh IH 2 puffs BID MAURA Administration Device 1 each 08/22/21 23:45 Inhaler, Assist Device DIRECTED MAURA Dimethicone/Zinc Oxide 0 gm 08/22/21 23:34 Curt Protect Cream 142 Gm Tube TP PRN PRN Docusate Sodium 100 mg 08/22/21 23:34 Docusate Sodium 100 Mg Cap PO TID PRN PRN Furosemide 40 mg 08/23/21 08:00 08/24/21 09:20 Furosemide 40 Mg/4 Ml Vial IVP 40 mg BID@0800,1600 MAURA Administration Sodium Chloride 500 mls @ 0 mls/hr 08/22/21 20:13 Saline 500ml Bag IV PRN PRN As Directed Sodium Chloride 50 mls @ 0 mls/hr 08/23/21 10:36 Saline 50ml Bag IVPB PRN PRN As Directed IV Miscellaneous Supplies 1 each 08/22/21 20:15 Iv Access IV DIRECTED MAURA Lorazepam 0.5 mg 08/23/21 01:04 08/23/21 01:44 Lorazepam 2 Mg/Ml Vial IVP 0.5 mg Q4H PRN PRN Administration Magnesium Hydroxide 30 ml 08/22/21 23:34 08/24/21 05:05 Milk Of Magnesia 30 Ml Cup PO 30 ml DAILY PRN PRN Administration Methylprednisolone Sodium Succinate 60 mg 08/23/21 08:00 08/24/21 09:20 Methylprednisolone Succ 125 Mg Vial IVP 60 mg Q8H MAUAR Administration Pantoprazole Sodium 40 mg 08/23/21 07:30 08/24/21 09:21 Pantoprazole 40 Mg Tabcr PO 40 mg DAILY@0730 MAURA Administration Rivaroxaban 20 mg 08/23/21 20:00 08/23/21 20:00 Rivaroxaban 10 Mg Tablet PO 20 mg QPM MAURA Administration Sodium Chloride 0 ml 08/22/21 20:13 08/23/21 20:00 Normal Saline Flush 10 Ml Syr IVP 10 ml PRN PRN Administration Sodium Chloride 0 ml 08/23/21 10:45 08/24/21 01:29 Normal Saline Flush 10 Ml Syr IVP 10 ml Q8H MAURA Administration Allergies No Known Allergies Allergy (Unverified 08/22/21 21:02) Exam Const General: no acute distress Nutritional Appearance: well nourished [facility] Head: normocephalic Ears: external ears normal and no periauricular adenopathy General nose exam: nasal mucous membranes and turbinates normal Face and sinus: sinuses nontender Mouth: oropharynx normal and moist mucous membranes Teeth and gingiva: dentition normal Eyes General: appearance normal, both eyes and all related structures Pupils: PERRL Neck Neck: normal visual inspection and no lymphadenopathy Chest Chest: normal inspection of the chest Resp Effort & Inspection: normal respiratory effort Auscultation: abnormal I/E ratio, diminished lung sounds, no rales, no rhonchi and no wheezes Cardio Rate: regular rate Rhythm: regular rhythm Heart Sounds: S1 normal, S2 normal and no murmurs Pulses: radial pulses present bilaterally GI Inspection: normal to inspection Palpation: soft Skin General skin exam: no rashes or lesions noted Neuro General: patient alert, patient awake and patient oriented x3 Extrem General: no clubbing, cyanosis or edema Psych Mental Status: mental status grossly normal Affect: normal affect Attitude: cooperative Results Last Vital Signs Temp 36.2 C L 08/24/21 07:43 Pulse 85 08/24/21 07:43 Resp 16 08/24/21 07:43 BP 110/65 08/24/21 07:43 Pulse Ox 91 L 08/24/21 07:43 Labs Result diagrams: 08/23/21 10:10 08/23/21 10:10 Labs: Laboratory Results - last 24 hr 08/23/21 08/23/21 08/23/21 10:10 10:10 10:10 WBC 5.85 D RBC 5.13 Hgb 15.7 Hct 51.4 H MCV 100.2 H MCH 30.6 MCHC 30.5 L RDW 15.3 H Plt Count 123 L MPV 10.8 Immature Gran % 0.3 Neutrophils % 95.7 Lymphocytes % 3.1 Monocytes % 0.9 Eosinophils % 0.0 Basophils % 0.0 Nucleated RBC % 0 Absolute Neutrophils 5.60 Absolute Lymphocytes 0.18 L Absolute Monocytes 0.05 L Absolute Eosinophils 0.00 Absolute Basophils 0.00 VBG pH 7.35 VBG pCO2 88 H* VBG pO2 47 VBG HCO3 48 H VBG Total CO2 43 H VBG O2 Saturation 81 VBG Base Excess > 15 H Sodium 141 Potassium 4.2 Chloride 97 L Carbon Dioxide > 45.0 H Anion Gap BUN 21 H Creatinine 0.8 Estimated GFR/1.73 m2 >= 60.00 Glucose 184 H Calcium 8.7 Magnesium 2.1 08/24/21 07:23 WBC RBC Hgb Hct MCV MCH MCHC RDW Plt Count MPV Immature Gran % Neutrophils % Lymphocytes % Monocytes % Eosinophils % Basophils % Nucleated RBC % Absolute Neutrophils Absolute Lymphocytes Absolute Monocytes Absolute Eosinophils Absolute Basophils VBG pH 7.43 H VBG pCO2 77 H* VBG pO2 63 VBG HCO3 51 H VBG Total CO2 > 50 H VBG O2 Saturation 91 VBG Base Excess 27 H Sodium Potassium Chloride Carbon Dioxide Anion Gap BUN Creatinine Estimated GFR/1.73 m2 Glucose Calcium Magnesium
--- NOTE | 2021-08-24 10:55 | PDOC.CMPRO ---
- If Service Date Differs Date of service: 08/24/21 Time of Service: 10:55 Care Management Progress Note S/O: Siomara was lying in bed visiting with her son when CM met with her. Siomara shared that she was recently discharged from our facility (on 08/21/21) and returned to [facility] ED the following day complaining of worsening shortness of breath. Pulmonary is currently working on getting NIV VALENT[facility]N home therapy for her. Palliative consult is ordered. CM will continue to support discharge planning needs. A: 76 year old female admitted to [facility] on 08/22/21 for Acute on chronic combined respiratory failure, COPD P: Anticipate Siomara will be discharged home with new [facility] services when medically cleared by provider. Pulmonology is working on getting her NIV VALENT[facility]N home therapy. She will transport via private vehicle with family. She will follow up with her community providers and discharge plan of care as prescribed.
[2021-08-24] MEDS: Budesonide/Formoterol 80/4.5 6.9 GM 60 PUFF INH IH ×2 (11:26→20:31)
--- NOTE | 2021-08-24 12:20 | W.PM.PROGNOT ---
Date of Service Date of service: 08/24/21 Time of Service: 12:20 Assessment and Plan Assessment and plan (1) Acute on chronic respiratory failure with hypoxia and hypercapnia: Status: Acute Assessment and plan: Multifactorial, due to COPD exacerbation as well as cor pulmonale. The patient is improving on BiPAP - her pH is now 7.43 on VBG. Pulmonary evaluated. Trilogy VALENTÍN device ordered. Treat COPD exacerbation (steroids, scheduled/prn nebs, symbicort, spiriva). Azithromycin x 5 days. Diuresed well. Wt is down. Monitor I/O's and daily weights. (2) Atrial fibrillation: Status: Chronic Assessment and plan: Continue home regimen Qualifiers: Atrial fibrillation type: permanent Qualified Code(s): I48.2 - Chronic atrial fibrillation (3) Smoker: Status: Acute Assessment and plan: Smoking cessation highly recommended. (4) Pulmonary hypertension: Status: Acute Assessment and plan: Est RVSP of 63mmHg Controlling COPD/hypoxia and smoking cessation. (5) Palliative care patient: Status: Acute Assessment and plan: Will continue to follow her as outpt given her significant chronic conditions. (6) Acute exacerbation of chronic obstructive pulmonary disease: Status: Acute Assessment and plan: See Resp failure Subjective Subjective Patient reports: no new complaints, feels better and afebrile; denies nausea and vomiting Interval history since last seen: Did well on BiPAP overnight Feels more rested. Exam Narrative Exam Narrative: General: Anxious frail elderly female who is on BiPAP, restless, A&Ox3 Neurological: A&Ox3, no focal deficits Psychiatric: Restless Skin: visible skin hyperpigmented, intact HEENT: Atraumatic, normocephalic, EOMI, Unable to examine mucuous membranes due to the patient being on BiPAP, no submandibular or cervical lymphadenopathy, no goiter or JVD Cardiovascular: irregularly irregular rhythm, no m/r/g Lungs: Rhonchi and rales throughout B lung moses Gastrointestinal: soft, nontender, nondistended Genitourinary: deferred Extremities: trace edema at B ankles, +1 pedal pulse B Const General: cooperative, disheveled and frail appearing Orientation: alert and oriented x3 Neck Neck: full ROM and no JVD Resp Effort & Inspection: normal respiratory effort Auscultation: clear to auscultation bilaterally and diminished lung sounds Cardio Rate: regular rate Rhythm: abnormal rhythm irregularly irregular GI Palpation: soft and nontender Skin General skin exam: no rashes or lesions noted Extrem General: no pedal edema and no calf tenderness Psych Appearance: grossly normal Mental Status: mental status grossly normal Affect: anxious affect Objective Last Vital Signs Temp 36.4 C L 08/24/21 10:55 Pulse 77 08/24/21 10:55 Resp 18 08/24/21 10:55 BP 107/69 08/24/21 10:55 Pulse Ox 91 L 08/24/21 11:30 Laboratory Results - last 24 hr 08/24/21 07:23 VBG pH 7.43 H VBG pCO2 77 H* VBG pO2 63 VBG HCO3 51 H VBG Total CO2 > 50 H VBG O2 Saturation 91 VBG Base Excess 27 H
[2021-08-24] MEDS: Rivaroxaban 10 MG TABLET 20 MG PO (20:30)
[2021-08-24] MEDS: LORazepam 0.5 MG TAB PO (20:31)
[2021-08-24] MEDS: Docusate Sodium 100 MG CAP PO (20:31)
[2021-08-24] MEDS: Acetaminophen 325 MG TAB PO (20:31)
[2021-08-25] VITALS (8 sets, daily range): BP systolic 105–125; BP diastolic 55–78; PULSE 67–87; RESP 4–20; TEMP 36–36.9; O2SAT 90–93
--- NOTE | 2021-08-25 07:18 | PGE_ITS ---
Assessment and Plan Assessment and plan (1) Pulmonary hypertension: Status: Acute (2) Acute on chronic respiratory failure with hypoxia and hypercapnia: Status: Acute (3) Acute exacerbation of chronic obstructive pulmonary disease: Status: Acute (4) Smoker: Status: Acute (5) Atrial fibrillation: Status: Chronic Qualifiers: Atrial fibrillation type: permanent Qualified Code(s): I48.2 - Chronic atrial fibrillation (6) NSCLC of right lung: Status: Acute Assessment and plan: This is a 76 yo female with pHTN, COPD, NSCLC and chronic hypoxic and hypercapnic respiratory failure admitted for a COPD exacerbation and respiratory failure. She has had multiple admissions necessitating BiPAP use. It is medically necessary and beneficial that she receive NIV via Trilogy VALENTÍN for outpatient usage due to her chronic respiratory failure with hypoxia secondary to severe COPD. The Rx for the device has been submitted and we are waiting for it to be set up with her. I believe this will prevent her readmissions and help with many of her chronic issues. Acute on chronic hypoxic and hypercapnic respiratory failure - will work on getting NIV home therapy for her COPD Exacerbation - prednisone 40mg for 7 days, 30mg for 5 days, 20mg for 3 days, 10mg for 3 days, 5mg for 3 days - recommend 5 day course of azithromycin - recommend Symbicort 80-4.5 2 puffs bid - recommend Spiriva 2.5 1 puff daily - recommend albuterol prn - smoking cessation NSCLC - continue to follow with radiation oncology at [facility] Date Of Service Date of service: 08/25/21 Time of Service: 07:18 Requesting physician: Eneida Sahu Subjective Note Note: Siomara says she is doing well today and feels as though her breathing is much improved. She is anxious to return home. We did discuss getting the trilogy EPO for her to prevent her from requiring readmission and help with her mortality given her complex pulmonary diseases. With me she understands the potential benefits of this machine and is willing to use it. Exam Const General: no acute distress Nutritional Appearance: well nourished [facility] Head: normocephalic Ears: external ears normal and no periauricular adenopathy General nose exam: nasal mucous membranes and turbinates normal Face and sinus: sinuses nontender Mouth: oropharynx normal and moist mucous membranes Teeth and gingiva: dentition normal Eyes General: appearance normal, both eyes and all related structures Pupils: PERRL Neck Neck: normal visual inspection and no lymphadenopathy Chest Chest: normal inspection of the chest Resp Effort & Inspection: normal respiratory effort Auscultation: abnormal I/E ratio, diminished lung sounds, no rales, no rhonchi and no wheezes Cardio Rate: regular rate Rhythm: regular rhythm Heart Sounds: S1 normal, S2 normal and no murmurs Pulses: radial pulses present bilaterally GI Inspection: normal to inspection Palpation: soft Skin General skin exam: no rashes or lesions noted Neuro General: patient alert, patient awake and patient oriented x3 Extrem General: no clubbing, cyanosis or edema Psych Mental Status: mental status grossly normal Affect: normal affect Attitude: cooperative Objective Last Vital Signs Temp 36.5 C 08/25/21 03:21 Pulse 75 08/25/21 03:21 Resp 18 08/25/21 03:21 BP 125/74 08/25/21 03:21 Pulse Ox 92 08/25/21 03:21 Laboratory Results - last 24 hr 08/24/21 07:23 VBG pH 7.43 H VBG pCO2 77 H* VBG pO2 63 VBG HCO3 51 H VBG Total CO2 > 50 H VBG O2 Saturation 91 VBG Base Excess 27 H Results Medications Medications: Active Medications Generic Name Dose Route Start Last Admin Trade Name Freq PRN Reason Stop Dose Admin Acetaminophen 0 mg 08/22/21 23:34 08/24/21 20:31 Acetaminophen 325 Mg Tab PO 650 mg Q4H PRN PRN Administration Al Hydrox/Mg Hydrox/Simethicone 30 ml 08/22/21 23:34 Mylanta Suspension 30 Ml Cup PO Q2H PRN PRN Albuterol Sulfate 2.5 mg 08/22/21 23:34 Albuterol 2.5 Mg/3 Ml Inh Soln Vial UPD Q2H PRN PRN Albuterol/Ipratropium 3 ml 08/24/21 10:28 Albuterol/Ipratropium 3 Ml Upd Vial UPD Q6H PRN PRN Azithromycin 250 mg 08/25/21 08:30 Azithromycin 250 Mg Tab PO DAILY MAURA Budesonide/Formoterol Fumarate 2 puff 08/23/21 08:30 08/24/21 20:31 Budesonide/Formoterol 80/4.5 6.9 Gm 60 Puff Inh IH 2 puffs BID MAURA Administration Device 1 each 08/22/21 23:45 Inhaler, Assist Device MC DIRECTED MAURA Dimethicone/Zinc Oxide 0 gm 08/22/21 23:34 Curt Protect Cream 142 Gm Tube TP PRN PRN Docusate Sodium 100 mg 08/22/21 23:34 08/24/21 20:31 Docusate Sodium 100 Mg Cap PO 100 mg TID PRN PRN Administration Furosemide 40 mg 08/25/21 08:30 Furosemide 40 Mg/4 Ml Vial IVP DAILY MAURA Sodium Chloride 500 mls @ 0 mls/hr 08/22/21 20:13 Saline 500ml Bag IV PRN PRN As Directed Sodium Chloride 50 mls @ 0 mls/hr 08/23/21 10:36 Saline 50ml Bag IVPB PRN PRN As Directed IV Miscellaneous Supplies 1 each 08/22/21 20:15 Iv Access IV DIRECTED [facility] Lorazepam 0.5 mg 08/24/21 20:08 08/24/21 20:31 Lorazepam 0.5 Mg Tab PO 0.5 mg QID PRN PRN Administration Magnesium Hydroxide 30 ml 08/22/21 23:34 08/24/21 05:05 Milk Of Magnesia 30 Ml Cup PO 30 ml DAILY PRN PRN Administration Pantoprazole Sodium 40 mg 08/23/21 07:30 08/24/21 09:21 Pantoprazole 40 Mg Tabcr PO 40 mg DAILY@0730 MAURA Administration Prednisone 40 mg 08/25/21 08:30 Prednisone 20 Mg Tab PO DAILY [facility] Rivaroxaban 20 mg 08/23/21 20:00 08/24/21 20:30 Rivaroxaban 10 Mg Tablet PO 20 mg QPM MAURA Administration Sodium Chloride 0 ml 08/22/21 20:13 08/23/21 20:00 Normal Saline Flush 10 Ml Syr IVP 10 ml PRN PRN Administration Tiotropium [place] 2 puff 08/25/21 08:30 Tiotropium [place]-Respimat 10 Puff Inh IH DAILY [facility] Allergies No Known Allergies Allergy (Unverified 08/22/21 21:02) Labs Result Diagrams: 08/23/21 10:10 08/25/21 07:25 Labs: Laboratory Tests Range/Units 08/22/21 08/22/21 08/22/21 20:00 20:00 20:25 WBC Cancelled RBC Cancelled Hgb Cancelled Hct Cancelled MCV Cancelled MCH Cancelled MCHC Cancelled RDW Cancelled Plt Count Cancelled MPV Cancelled Immature Gran % Cancelled Neutrophils % Cancelled Band Neutrophils % Cancelled Lymphocytes % Cancelled Atypical Lymphs % Cancelled Monocytes % Cancelled Eosinophils % Cancelled Basophils % Cancelled Metamyelocytes % Cancelled Myelocytes % Cancelled Promyelocytes % Cancelled Other Cells % Cancelled Nucleated RBC % Cancelled Absolute Neutrophils Cancelled Absolute Lymphocytes Cancelled Absolute Monocytes Cancelled Absolute Eosinophils Cancelled Absolute Basophils Cancelled RBC Morphology Cancelled Polychromasia Cancelled Hypochromasia Cancelled Poikilocytosis Cancelled Basophilic Stippling Cancelled Anisocytosis Cancelled Microcytosis Cancelled Macrocytosis Cancelled Spherocytes Cancelled Tear Drop Cells Cancelled Ovalocytes Cancelled Stomatocytes Cancelled [place] Bodies Cancelled Charley Cells/Echinocytes Cancelled Acanthocytes (Spur) Cancelled Schistocytes Cancelled ABG Sample Site ABG pH (7.35-7.45) ABG pCO2 (35-45) mmHg ABG pO2 (80-105) mmHg ABG HCO3 (22-26) mmol/L ABG Total CO2 (23-27) mmol/L ABG O2 Saturation (95-98) % ABG Base Excess (-2-3) mmol/L VBG pH VBG pCO2 VBG pO2 VBG HCO3 VBG Total CO2 VBG O2 Saturation VBG Base Excess Oxygen Liter Flow L FiO2 % Sodium Cancelled Potassium Cancelled Chloride Cancelled Carbon Dioxide Cancelled Anion Gap Cancelled BUN Cancelled Creatinine Cancelled Estimated GFR/1.73 m2 Cancelled Glucose Cancelled Calcium Cancelled Magnesium (1.8-2.4) mg/dL Troponin I NT-Pro-B Natriuret Pep Cancelled COVID-19 Source NASOPHARYX SARS-CoV-2 (PCR) (Negative) Negative Influenza Type A (PCR) (Negative) Negative Influenza Type B (PCR) (Negative) Negative RSV (PCR) (Negative) Negative Range/Units 08/22/21 08/22/21 08/22/21 20:30 20:40 20:40 WBC Cancelled RBC Cancelled Hgb Cancelled Hct Cancelled MCV Cancelled MCH Cancelled MCHC Cancelled RDW Cancelled Plt Count Cancelled MPV Cancelled Immature Gran % Cancelled Neutrophils % Cancelled Band Neutrophils % Cancelled Lymphocytes % Cancelled Atypical Lymphs % Cancelled Monocytes % Cancelled Eosinophils % Cancelled Basophils % Cancelled Metamyelocytes % Cancelled Myelocytes % Cancelled Promyelocytes % Cancelled Other Cells % Cancelled Nucleated RBC % Cancelled Absolute Neutrophils Cancelled Absolute Lymphocytes Cancelled Absolute Monocytes Cancelled Absolute Eosinophils Cancelled Absolute Basophils Cancelled RBC Morphology Cancelled Polychromasia Cancelled Hypochromasia Cancelled Poikilocytosis Cancelled Basophilic Stippling Cancelled Anisocytosis Cancelled Microcytosis Cancelled Macrocytosis Cancelled Spherocytes Cancelled Tear Drop Cells Cancelled Ovalocytes Cancelled Stomatocytes Cancelled [place] Bodies Cancelled Charley Cells/Echinocytes Cancelled Acanthocytes (Spur) Cancelled Schistocytes Cancelled ABG Sample Site ABG pH (7.35-7.45) ABG pCO2 (35-45) mmHg ABG pO2 (80-105) mmHg ABG HCO3 (22-26) mmol/L ABG Total CO2 (23-27) mmol/L ABG O2 Saturation (95-98) % ABG Base Excess (-2-3) mmol/L VBG pH Cancelled VBG pCO2 Cancelled VBG pO2 Cancelled VBG HCO3 Cancelled VBG Total CO2 Cancelled VBG O2 Saturation Cancelled VBG Base Excess Cancelled Oxygen Liter Flow L FiO2 % Sodium Cancelled Potassium Cancelled Chloride Cancelled Carbon Dioxide Cancelled Anion Gap Cancelled BUN Cancelled Creatinine Cancelled Estimated GFR/1.73 m2 Cancelled Glucose Cancelled Calcium Cancelled Magnesium (1.8-2.4) mg/dL Troponin I Cancelled NT-Pro-B Natriuret Pep Cancelled COVID-19 Source SARS-CoV-2 (PCR) (Negative) Influenza Type A (PCR) (Negative) Influenza Type B (PCR) (Negative) RSV (PCR) (Negative) Range/Units 08/22/21 08/22/21 08/22/21 20:40 21:25 21:25 WBC 8.78 RBC 5.14 Hgb 15.8 H Hct 52.4 H MCV 101.9 H MCH 30.7 MCHC 30.2 L RDW 15.6 H Plt Count 154 MPV 10.6 Immature Gran % 0.2 Neutrophils % 78.1 Band Neutrophils % Lymphocytes % 9.0 Atypical Lymphs % Monocytes % 12.1 Eosinophils % 0.5 Basophils % 0.1 Metamyelocytes % Myelocytes % Promyelocytes % Other Cells % Nucleated RBC % 0 Absolute Neutrophils 6.86 H Absolute Lymphocytes 0.79 L Absolute Monocytes 1.06 H Absolute Eosinophils 0.04 Absolute Basophils 0.01 RBC Morphology Polychromasia Hypochromasia Poikilocytosis Basophilic Stippling Anisocytosis Microcytosis Macrocytosis Spherocytes Tear Drop Cells Ovalocytes Stomatocytes [place] Bodies [place] Cells/Echinocytes Acanthocytes (Spur) Schistocytes ABG Sample Site ABG pH (7.35-7.45) ABG pCO2 (35-45) mmHg ABG pO2 (80-105) mmHg ABG HCO3 (22-26) mmol/L ABG Total CO2 (23-27) mmol/L ABG O2 Saturation (95-98) % ABG Base Excess (-2-3) mmol/L VBG pH Cancelled VBG pCO2 Cancelled VBG pO2 Cancelled VBG HCO3 Cancelled VBG Total CO2 Cancelled VBG O2 Saturation Cancelled VBG Base Excess Cancelled Oxygen Liter Flow L FiO2 % Sodium 140 Potassium 4.5 Chloride 100 Carbon Dioxide > 45.0 H Anion Gap -5.33489 L BUN 23 H Creatinine 0.6 Estimated GFR/1.73 m2 >= 60.00 Glucose 138 H Calcium 8.7 Magnesium (1.8-2.4) mg/dL Troponin I < 0.05 NT-Pro-B Natriuret Pep 1127 H COVID-19 Source SARS-CoV-2 (PCR) (Negative) Influenza Type A (PCR) (Negative) Influenza Type B (PCR) (Negative) RSV (PCR) (Negative) Range/Units 08/22/21 08/23/21 08/23/21 21:25 00:09 01:00 WBC RBC Hgb Hct MCV MCH MCHC RDW Plt Count MPV Immature Gran % Neutrophils % Band Neutrophils % Lymphocytes % Atypical Lymphs % Monocytes % Eosinophils % Basophils % Metamyelocytes % Myelocytes % Promyelocytes % Other Cells % Nucleated RBC % Absolute Neutrophils Absolute Lymphocytes Absolute Monocytes Absolute Eosinophils Absolute Basophils RBC Morphology Polychromasia Hypochromasia Poikilocytosis Basophilic Stippling Anisocytosis Microcytosis Macrocytosis Spherocytes Tear Drop Cells Ovalocytes Stomatocytes [place] Bodies [place] Cells/Echinocytes Acanthocytes (Spur) Schistocytes ABG Sample Site Right Radial ABG pH (7.35-7.45) 7.35 ABG pCO2 (35-45) mmHg 86 H* ABG pO2 (80-105) mmHg 52 L ABG HCO3 (22-26) mmol/L 48 H ABG Total CO2 (23-27) mmol/L 42 H ABG O2 Saturation (95-98) % 85 L ABG Base Excess (-2-3) mmol/L > 15 H VBG pH 7.31 VBG pCO2 98 H* VBG pO2 39 VBG HCO3 50 H VBG Total CO2 44 H VBG O2 Saturation 68 VBG Base Excess > 15 H Oxygen Liter Flow L BIPAP 12/5 FiO2 % 40 Sodium Potassium Chloride Carbon Dioxide Anion Gap BUN Creatinine Estimated GFR/1.73 m2 Glucose Calcium Magnesium (1.8-2.4) mg/dL Troponin I < 0.05 NT-Pro-B Natriuret Pep COVID-19 Source SARS-CoV-2 (PCR) (Negative) Influenza Type A (PCR) (Negative) Influenza Type B (PCR) (Negative) RSV (PCR) (Negative) Range/Units 08/23/21 08/23/21 08/23/21 10:10 10:10 10:10 WBC 5.85 D RBC 5.13 Hgb 15.7 Hct 51.4 H MCV 100.2 H MCH 30.6 MCHC 30.5 L RDW 15.3 H Plt Count 123 L MPV 10.8 Immature Gran % 0.3 Neutrophils % 95.7 Band Neutrophils % Lymphocytes % 3.1 Atypical Lymphs % Monocytes % 0.9 Eosinophils % 0.0 Basophils % 0.0 Metamyelocytes % Myelocytes % Promyelocytes % Other Cells % Nucleated RBC % 0 Absolute Neutrophils 5.60 Absolute Lymphocytes 0.18 L Absolute Monocytes 0.05 L Absolute Eosinophils 0.00 Absolute Basophils 0.00 RBC Morphology Polychromasia Hypochromasia Poikilocytosis Basophilic Stippling Anisocytosis Microcytosis Macrocytosis Spherocytes Tear Drop Cells Ovalocytes Stomatocytes [place] Bodies Charley Cells/Echinocytes Acanthocytes (Spur) Schistocytes ABG Sample Site ABG pH (7.35-7.45) ABG pCO2 (35-45) mmHg ABG pO2 (80-105) mmHg ABG HCO3 (22-26) mmol/L ABG Total CO2 (23-27) mmol/L ABG O2 Saturation (95-98) % ABG Base Excess (-2-3) mmol/L VBG pH 7.35 VBG pCO2 88 H* VBG pO2 47 VBG HCO3 48 H VBG Total CO2 43 H VBG O2 Saturation 81 VBG Base Excess > 15 H Oxygen Liter Flow L FiO2 % Sodium 141 Potassium 4.2 Chloride 97 L Carbon Dioxide > 45.0 H Anion Gap BUN 21 H Creatinine 0.8 Estimated GFR/1.73 m2 >= 60.00 Glucose 184 H Calcium 8.7 Magnesium (1.8-2.4) mg/dL 2.1 Troponin I NT-Pro-B [facility] [place] COVID-19 Source SARS-CoV-2 (PCR) (Negative) Influenza Type A (PCR) (Negative) Influenza Type B (PCR) (Negative) RSV (PCR) (Negative) Range/Units 08/24/21 07:23 WBC RBC Hgb Hct MCV MCH MCHC RDW Plt Count MPV Immature Gran % Neutrophils % Band Neutrophils % Lymphocytes % Atypical Lymphs % Monocytes % Eosinophils % Basophils % Metamyelocytes % Myelocytes % Promyelocytes % Other Cells % Nucleated RBC % Absolute Neutrophils Absolute Lymphocytes Absolute Monocytes Absolute Eosinophils Absolute Basophils RBC Morphology Polychromasia Hypochromasia Poikilocytosis Basophilic Stippling Anisocytosis Microcytosis Macrocytosis Spherocytes Tear Drop Cells Ovalocytes Stomatocytes [place] Bodies Charley Cells/Echinocytes Acanthocytes (Spur) Schistocytes ABG Sample Site ABG pH (7.35-7.45) ABG pCO2 (35-45) mmHg ABG pO2 (80-105) mmHg ABG HCO3 (22-26) mmol/L ABG Total CO2 (23-27) mmol/L ABG O2 Saturation (95-98) % ABG Base Excess (-2-3) mmol/L VBG pH 7.43 H VBG pCO2 77 H* VBG pO2 63 VBG HCO3 51 H VBG Total CO2 > 50 H VBG O2 Saturation 91 VBG Base Excess 27 H Oxygen Liter Flow L FiO2 % Sodium Potassium Chloride Carbon Dioxide Anion Gap BUN Creatinine Estimated GFR/1.73 m2 Glucose Calcium Magnesium (1.8-2.4) mg/dL Troponin I NT-Pro-B [facility] Pep COVID-19 Source SARS-CoV-2 (PCR) (Negative) Influenza Type A (PCR) (Negative) Influenza Type B (PCR) (Negative) RSV (PCR) (Negative)
[2021-08-25 08:20] LABS: BUN 32 mg/dL (7-18); CREATININE 0.6 mg/dL (0.55-1.02); Calcium 8.9 mg/dL (8.5-10.1); Chloride 94 mmol/L (98-107); Glucose 92 mg/dL (74-106); Potassium 4.6 mmol/L (3.5-5.1); Sodium 138 mmol/L (136-145)
[2021-08-25 08:22] LABS: CO2 > 45.0 mmol/L (21.0-32.0)
--- NOTE | 2021-08-25 09:44 | CMPROGNOTE_ITS ---
- If Service Date Differs Date of service: 08/25/21 Time of Service: 09:44 Care Management Progress Note S/O: Siomara was lying in bed when CM met with her. She was pleasant and easily engaged in conversation. She is hopeful that her NIV equipment will be delivered soon so she can discharge home sometime tomorrow. Siomara shared that she was recently discharged from our facility (on 08/21/21) and returned to [facility] ED the following day complaining of worsening shortness of breath. Pulmonary is currently working on getting NIV VALENTÍN home therapy for her. Palliative consult is ordered. CM will continue to support discharge planning needs. A: 76 year old female admitted to [facility] on 08/22/21 for Acute on chronic combined respiratory failure, COPD P: Anticipate Siomara will be discharged home with new [facility] services when medically cleared by provider. Pulmonology is working on getting her NIV VALENTÍN home therapy. She will transport via private vehicle with family. She will follow up with her community providers and discharge plan of care as prescribed.
[2021-08-25] MEDS: Furosemide 40 MG/4 ML VIAL IVP (10:35)
[2021-08-25] MEDS: Azithromycin 250 MG TAB PO (10:36)
[2021-08-25] MEDS: predniSONE 20 MG TAB 40 MG PO (10:36)
[2021-08-25] MEDS: Pantoprazole 40 MG TABCR PO (10:36)
[2021-08-25] MEDS: Budesonide/Formoterol 80/4.5 6.9 GM 60 PUFF INH IH ×2 (10:57→19:45)
--- NOTE | 2021-08-25 14:35 | W.PM.PROGNOT ---
Date of Service Date of service: 08/25/21 Time of Service: 14:35 Assessment and Plan Assessment and plan (1) Acute on chronic respiratory failure with hypoxia and hypercapnia: Status: Acute Assessment and plan: Multifactorial, due to COPD exacerbation as well as cor pulmonale. The patient is improving Pulmonary evaluated. Trilogy VALENTÍN device (NIV) ordered. Treat COPD exacerbation (scheduled/prn nebs, symbicort, spiriva). High dose steroid taper. Bactrim daily while on high dose steroid of 20mg or >. Azithromycin x 5 days. Diuresed well. Wt is down. Monitor I/O's and daily weights. (2) Atrial fibrillation: Status: Chronic Assessment and plan: Continue home regimen Qualifiers: Atrial fibrillation type: permanent Qualified Code(s): I48.2 - Chronic atrial fibrillation (3) Smoker: Status: Acute Assessment and plan: Smoking cessation highly recommended. (4) Pulmonary hypertension: Status: Acute Assessment and plan: Est RVSP of 63mmHg Controlling COPD/hypoxia and smoking cessation. (5) Palliative care patient: Status: Acute Assessment and plan: Will continue to follow her as outpt given her significant chronic conditions. (6) Acute exacerbation of chronic obstructive pulmonary disease: Status: Acute Assessment and plan: See Resp failure Subjective Subjective Patient reports: no new complaints, feels better and afebrile; denies nausea and vomiting Interval history since last seen: Pt is equivocal on whether she thinks she will use the NIV (Acapella) that has been ordered. Waiting for it to be delivered so it can first be used here so she can be assisted in it's use. Exam Const General: cooperative, disheveled and frail appearing Orientation: alert and oriented x3 Neck Neck: full ROM and no JVD Resp Effort & Inspection: normal respiratory effort Auscultation: clear to auscultation bilaterally, abnormal I/E ratio and diminished lung sounds Cardio Rate: regular rate Rhythm: abnormal rhythm irregularly irregular GI Palpation: soft and nontender Skin General skin exam: no rashes or lesions noted Extrem General: no pedal edema and no calf tenderness Psych Appearance: grossly normal Mental Status: mental status grossly normal Affect: anxious affect Objective Last Vital Signs Temp 36.6 C 08/25/21 12:00 Pulse 76 08/25/21 12:00 Resp 20 08/25/21 12:00 BP 112/71 08/25/21 12:00 Pulse Ox 90 L 08/25/21 12:00 Laboratory Results - last 24 hr 08/22/21 08/25/21 21:25 07:25 Sodium 138 Potassium 4.6 Chloride 94 L Carbon Dioxide > 45.0 H Anion Gap BUN 32 H D Creatinine 0.6 Estimated GFR/1.73 m2 >= 60.00 Glucose 92 D Calcium 8.9
[2021-08-25] MEDS: Normal Saline Flush 10 ML SYR IVP (19:44)
[2021-08-25] MEDS: Albuterol/Ipratropium 3 ML UPD VIAL UPD (19:45)
[2021-08-25] MEDS: Rivaroxaban 10 MG TABLET 20 MG PO (19:46)
[2021-08-25] MEDS: Acetaminophen 325 MG TAB PO (19:46)
[2021-08-25] MEDS: LORazepam 0.5 MG TAB PO (19:47)
[2021-08-26] VITALS (7 sets, daily range): BP systolic 94–143; BP diastolic 56–83; PULSE 66–84; RESP 4–20; TEMP 36–36.6; O2SAT 90–91
[2021-08-26] MEDS: predniSONE 20 MG TAB 40 MG PO (07:47)
[2021-08-26] MEDS: Azithromycin 250 MG TAB PO (07:47)
[2021-08-26] MEDS: Pantoprazole 40 MG TABCR PO (07:47)
[2021-08-26] MEDS: Sulfameth/Trimeth DS TAB 1 TAB PO (07:47)
[2021-08-26] MEDS: Tiotropium Bromide-Respimat 10 PUFF INH 2 PUFF IH (08:22)
[2021-08-26] MEDS: Budesonide/Formoterol 80/4.5 6.9 GM 60 PUFF INH IH ×2 (08:22→20:09)
[2021-08-26] MEDS: Normal Saline Flush 10 ML SYR IVP (10:03)
[2021-08-26] MEDS: Furosemide 40 MG TAB PO (10:22)
--- NOTE | 2021-08-26 10:44 | PDOC.CMPRO ---
- If Service Date Differs Date of service: 08/26/21 Time of Service: 10:44 Care Management Progress Note S/O: Siomara was lying in bed when CM met with her. She is getting frustrated in regards to the length of her stay and wants to be home. Her pulmonary equipment has not arrived yet. She shared with CM that she is willing to wait for the equipment one more night but will be leaving tomorrow with or without it. CM will continue to support discharge planning needs. A: 76 year old female admitted to [facility] on 08/22/21 for Acute on chronic combined respiratory failure, COPD P: Anticipate Siomara will be discharged home with new [facility] services when medically cleared by provider. Pulmonology is working on getting her NIV VALENTÍN home therapy, however it needed to be ordered and has not arrived yet. She will transport via private vehicle with family. She will follow up with her community providers and discharge plan of care as prescribed.
--- NOTE | 2021-08-26 13:43 | W.PM.PROGNOT ---
Date of Service Date of service: 08/26/21 Time of Service: 13:44 Assessment and Plan Assessment and plan (1) Acute on chronic respiratory failure with hypoxia and hypercapnia: Status: Acute Assessment and plan: Multifactorial, due to COPD exacerbation as well as cor pulmonale. The patient is improving Pulmonary evaluated. Trilogy VALENTÍN device (NIV) ordered. Treat COPD exacerbation (scheduled/prn nebs, symbicort, spiriva). High dose steroid taper. Bactrim daily while on high dose steroid of 20mg or >. Azithromycin x 5 days. Diuresed well. Wt is down. Monitor I/O's and daily weights. (2) Atrial fibrillation: Status: Chronic Assessment and plan: Continue home regimen Qualifiers: Atrial fibrillation type: permanent Qualified Code(s): I48.2 - Chronic atrial fibrillation (3) Smoker: Status: Acute Assessment and plan: Smoking cessation highly recommended. (4) Pulmonary hypertension: Status: Acute Assessment and plan: Est RVSP of 63mmHg Controlling COPD/hypoxia and smoking cessation. (5) Palliative care patient: Status: Acute Assessment and plan: Will continue to follow her as outpt given her significant chronic conditions. (6) Acute exacerbation of chronic obstructive pulmonary disease: Status: Acute Assessment and plan: See Resp failure Subjective Subjective Patient reports: no new complaints, shortness of breath (Improved, but still with exertion. ) and afebrile; denies diarrhea, nausea and vomiting Interval history since last seen: Pt voices frustration that she may not leave today; waiting for delivery of NVI device. Exam Const General: cooperative, frail appearing and other (Appears more rested. Less anxious. ) Orientation: alert and oriented x3 Neck Neck: full ROM and no JVD Resp Effort & Inspection: normal respiratory effort Auscultation: clear to auscultation bilaterally, abnormal I/E ratio and diminished lung sounds Cardio Rate: regular rate Rhythm: abnormal rhythm irregularly irregular GI Palpation: soft and nontender Skin General skin exam: no rashes or lesions noted Extrem General: no pedal edema and no calf tenderness Psych Appearance: grossly normal Mental Status: mental status grossly normal Affect: anxious affect Objective Last Vital Signs Temp 36.6 C 08/26/21 11:10 Pulse 73 08/26/21 11:10 Resp 20 08/26/21 11:10 BP 104/58 L 08/26/21 11:10 Pulse Ox 91 L 08/26/21 11:10
[2021-08-26] MEDS: Rivaroxaban 10 MG TABLET 20 MG PO (20:10)
[2021-08-26] MEDS: Albuterol/Ipratropium 3 ML UPD VIAL UPD (20:10)
[2021-08-26] MEDS: Acetaminophen 325 MG TAB PO (20:10)
[2021-08-27 03:08] VITALS: BP 125/76; PULSE 76; RESP 18; TEMP 36.3; O2SAT 91
--- NOTE | 2021-08-27 07:21 | W.PM.DS.N ---
Date of service: 08/27/21 Time of Service: 07:21 DS: Diagnosis Discharge Diagnosis (1) Acute on chronic respiratory failure with hypoxia and hypercapnia: Status: Acute (2) Atrial fibrillation: Status: Chronic (3) Smoker: Status: Acute (4) Pulmonary hypertension: Status: Acute (5) Palliative care patient: Status: Acute (6) Acute exacerbation of chronic obstructive pulmonary disease: Status: Acute Discharge Plan Disposition Patient Disposition: HOME W/HOME HEALTH SERVICE Condition: Improving Discharge Details Reason For Visit: Acute on Chronic Combined Respiratory Failure,COPD Admit Date/Time: 08/22/21 23:35 Admit Provider: Eneida Sahu Attending Provider: Eneida Sahu 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 ED the following day complaining of worsening shortness of breath. She reports a nonproductive cough. While the ED note documented chest pain earlier in the day at home, the patient denies this to me, stating that she just couldn't breathe. Our interview is limited due to the patient being on BiPAP. She does state that her granddaughter filled the prescriptions for only some of her medications, but that she did not fill her inhaler. The patient was found to be rhonchorous, hypoxic and hypercapnic by VBG/ABG. She was placed on BIPAP. Hospitalist admission to the ICU was requested. The patient is reporting pain from the BiPAP mask, but her breathing is better. She is currently on BiPAP 08/16 with FiO2 of 40%, saturating in low 90s. The patient stated in the ED as well as in her conversation with me that she would like to be to full code. The COPD exacerbation component of her current illness treated with steroids, nebs and Symbicort and Spiriva. Azithromax 250mg po daily administered. Pulmonary medicine consulted. Her echocardiogram on 08/20/21 showed a RVSP of 62.7 %. Given her chronic CO2 retention and improvement with BiPAP, a NIV device for home therapy was ordered and will be delivered to her home upon d/c with a company quality audit representative there to instruct her on it's use. Smoking cessation encouraged. She will continue a long prednisone taper of 40 mg daily for 7 days (initiated in the hospital) then 30mg daily for 5 days, 20mg for 3 days, 10 mg daily for 3 days then 5 g daily for 3 days. Home Health nursing for assistance with medications and new NIV device. F/U with PCP in 1-2 weeks. Appt being scheduled for f/u with Dr Newton, pulmonary medicine. Home Meds and New Rx's Prescriptions: New azithromycin 250 mg Tablet 250 mg PO DAILY Qty: 2 RF: 0 budesonide-formoterol [Symbicort] 80-4.5 mcg/actuation Hfa Aerosol Inhaler 2 puff inhalation BID Qty: 10.2 RF: 0 sulfamethoxazole-trimethoprim 800-160 mg Tablet 1 tab PO DAILY Qty: 14 RF: 0 Spiriva Respimat 2.5 mcg/actuation Mist 2 puff inhalation DAILY Qty: 4 RF: 0 Inhaler, Assist Devices [Pocket Chamber] 1 ea miscellaneous DIRECTED Qty: 0 RF: 0 prednisone 10 mg tablet See Rx Instructions .ROUTE .COMPLEX Qty: 42 RF: 0 Continued Xarelto 20 mg tablet 20 mg PO QPM Qty: 30 RF: 11 diltiazem HCl 120 mg capsule,extended release 24hr 120 mg PO DAILY RF: 0 lisinopril 10 mg tablet 5 mg PO DAILY RF: 0 atorvastatin [Lipitor] 80 mg Tablet 80 mg PO QPM RF: 0 albuterol sulfate [ProAir HFA] 90 mcg/actuation Hfa Aerosol Inhaler 2 puff INHALATION QID PRNRF: 0 ipratropium-albuterol 0.5 mg-3 mg(2.5 mg base)/3 mL Solution For Nebulization 3 ml UPD Q6H PRN PRN (Reason: shortness of breath or wheezing) Qty: 180 RF: 0 pantoprazole 40 mg Tablet,Delayed Release (Dr/Ec) 40 mg PO DAILY@0730 Qty: 30 RF: 0 furosemide [Lasix] 20 mg tablet 20 mg PO DAILY@1400 Qty: 30 RF: 0 Discontinued prednisone 20 mg tablet 40 mg PO DAILY Qty: 10 RF: 0 cefpodoxime 200 mg Tablet 200 mg PO BID Qty: 14 RF: 0 Discharge Instructions Instructions: COPD (Chronic Obstructive Pulmonary Disease) (DC), Acute Respiratory Failure (GEN) Stand Alone Forms: Nursing Discharge Form Referrals: Leigha Newton MD [ [facility] STAFF PHYSICIAN] - 09/30/21 2:00 pm Sherwin Ceja [Primary Care Provider] - (Please call to make a follow up appointment) Activity:: Activity as Tolerated Equipment/Supplies:: NIV has been delivered. Diet:: Low Sodium Discharge Orders Discharge Orders: Discharge Order (Routine); Ordered 08/27/21 Ordered By: Maninder Haskins Discharge Data Discharge Date/Time-TO BE ENTERED AT DEPARTURE: 08/27/21 09:09 DS: Summary Time Spent with Patient providing and/or coordinating discharge services: Greater than 30 minutes Status at Discharge Functional status at discharge: independent ambulation Overall status at discharge: patient is back to baseline Mental Status: mental status grossly normal Speech and Movement: speech and movement normal Mood: congruent mood Affect: normal affect and anxious affect Exam Narrative Exam Narrative: General: Anxious frail elderly female who is on BiPAP, restless, A&Ox3 Neurological: A&Ox3, no focal deficits Psychiatric: Restless Skin: visible skin hyperpigmented, intact HEENT: Atraumatic, normocephalic, EOMI, Unable to examine mucuous membranes due to the patient being on BiPAP, no submandibular or cervical lymphadenopathy, no goiter or JVD Cardiovascular: irregularly irregular rhythm, no m/r/g Lungs: Rhonchi and rales throughout B lung moses Gastrointestinal: soft, nontender, nondistended Genitourinary: deferred Extremities: trace edema at B ankles, +1 pedal pulse B Const General: cooperative, frail appearing and other (Appears more rested. Less anxious. ) Orientation: alert and oriented x3 Neck Neck: full ROM and no JVD Resp Effort & Inspection: normal respiratory effort Auscultation: clear to auscultation bilaterally, abnormal I/E ratio and diminished lung sounds Cardio Rate: regular rate Rhythm: abnormal rhythm irregularly irregular GI Palpation: soft and nontender Skin General skin exam: no rashes or lesions noted Extrem General: no pedal edema and no calf tenderness Psych Appearance: grossly normal Mental Status: mental status grossly normal Speech and Movement: speech and movement normal Mood: congruent mood Affect: normal affect and anxious affect DS: Data Vitals/I&O Vitals and I&O: Vital Signs Temperature 36.3 C L 08/27/21 03:08 Temperature Source Skin 08/27/21 03:08 Pulse 76 08/27/21 03:08 Pulse Rhythm Regular 08/27/21 05:56 Pulse 80 08/23/21 06:10 Respiratory Rate 18 08/27/21 03:08 Respiratory Effort Non-Labored 08/27/21 05:56 Respiratory Depth Normal 08/27/21 05:56 Respiratory Pattern Normal 08/27/21 05:56 Blood Pressure 125/76 08/27/21 03:08 Blood Pressure Mean 82 08/23/21 08:39 Blood Pressure Position Sitting 08/23/21 08:39 Pulse Oximetry 91 L 08/27/21 03:08 Oxygen Delivery Method Nasal Cannula 08/27/21 03:08 Oxygen Flow Rate 1 08/27/21 03:08 Fraction of Inspired Oxygen (FIO2) 40 08/23/21 20:05 Pain Level 0 08/27/21 03:08 Comment 08/24/21 19:33 Intake & Output 08/26/21 08/26/21 08/27/21 11:59 23:59 11:59 Intake Total 480 / 840 360 / 840 240 / 240 Output Total 750 / 1525 775 / 1525 650 / 650 Balance -270 / -685 -415 / -685 -410 / -410 Weight 54.5 kg Intake: Oral 480 / 840 360 / 840 240 / 240 Output: Urine 750 / 1525 775 / 1525 650 / 650 Other: Urine Color Dark Jennifer Light Jennifer Yellow Urine Appearance Cloudy Clear Cloudy PFSH All Active Problems NSCLC of right lung (Acute) Palliative care patient (Acute) Pulmonary hypertension (Acute) Acute respiratory acidosis (Acute) Acute on chronic respiratory failure with hypoxia and hypercapnia (Acute) Cor pulmonale (Acute) Acute and chronic respiratory failure ([id number]) (Acute) Weakness of both legs (Acute) Acute exacerbation of chronic obstructive pulmonary disease (Acute) Hypoxia (Acute) Acute exacerbation of congestive heart failure (Acute) Requires supplemental oxygen (Acute) Hypoxia (Acute) Shortness of breath (Acute) CHF (congestive heart failure) (Chronic) DVT prophylaxis (Acute) Discharge planning issues (Acute) HTN (hypertension) (Chronic) Atrial fibrillation (Chronic) Smoker (Acute) COPD (chronic obstructive pulmonary disease) (Chronic) Medical History Atrial fibrillation Chronic respiratory failure with hypoxia and hypercapnia COPD (chronic obstructive pulmonary disease) HTN (hypertension) Hypercholesteremia Lung cancer Lung mass Pulmonary hypertension Smoker Surgical History S/P appendectomy S/P cholecystectomy S/P hysterectomy Family History Father Hemochromatosis Cirrhosis due to hemochromatosis Diabetes Daughter Heart disease DC in 40s Social History Smoking/Tobacco Use Status: Current every day Tobacco Type: cigarettes Years smoked: 50 Quit status: considering quitting Counseling given: patient declined Smoking risk assessment performed?: Yes Alcohol Intake: never Drug use: Never Substance use type: does not use What type of physical activity do you participate in: none Do you feel safe at home: Yes Do you feel safe in your relationship?: Yes
[2021-08-27] MEDS: Budesonide/Formoterol 80/4.5 6.9 GM 60 PUFF INH IH (07:36)
[2021-08-27] MEDS: Tiotropium Bromide-Respimat 10 PUFF INH 2 PUFF IH (07:36)
[2021-08-27] MEDS: predniSONE 20 MG TAB 40 MG PO (07:51)
[2021-08-27] MEDS: Sulfameth/Trimeth DS TAB 1 TAB PO (07:51)
[2021-08-27] MEDS: Pantoprazole 40 MG TABCR PO (07:51)
[2021-08-27] MEDS: Azithromycin 250 MG TAB PO (07:51)
--- NOTE | 2021-08-27 08:20 | PDOC.CMPRO ---
- If Service Date Differs Date of service: 08/27/21 Time of Service: 08:20 Care Management Progress Note S/O: Siomara us getting frustrated in regards to the length of her stay and wants to be home. Her pulmonary equipment has not arrived yet. She shared with CM that she wants to leave today with or without her equipment. CM will continue to support discharge planning needs. A: 76 year old female admitted to [facility] on 08/22/21 for Acute on chronic combined respiratory failure, COPD P: Anticipate Siomara will be discharged home with new [facility] services when medically cleared by provider. Pulmonology is working on getting her NIV VALENTÍN home therapy, however it needed to be ordered and has not arrived yet. She will transport via private vehicle with family. She will follow up with her community providers and discharge plan of care as prescribed.
[2021-08-27 08:26] VITALS: BP 128/85; PULSE 66; RESP 18; TEMP 36.6; O2SAT 90
--- NOTE | 2021-08-27 08:55 | PDOC.HHF2F_ITS ---
Home Health Certification Home Health Certification: 1. Encounter Date and Reason I certify that Siomara Quinones was seen by Maninder Haskins MD on 08/27/21 and that I had a [id number] encounter with this patient that meets the physician face to face encounter requirements. 2. Clinical Findings Supporting Skilled Need and Homebound Status I certify that home health services are medically necessary, include either intermittent prison and/or physical/speech therapy, and that this pa tient is homebound in that absences from the home require considerable and taxing effort and are infrequent or of short duration, or are attributable to the need to receive medical care. [X] (a) Attached documentation from encounter provides clinical findings supporting skilled need and homebound status (including what assistance patient requires to leave the home). The encounter with the patient was in whole, or in part, for the following medical condition, which is the primary reason for home health care: Acute on Chronic Combined Respiratory Failure,COPD Prison: Physical Therapy: Speech Therapy: Homebound: 3. Certification and Authentication I certify that I composed the above information based on my clinical judgement relating to this patient's medical condition and, if applicable, clinical findings communicated to me by the NPP or inpatient physician who performed the Home Health Referral. All further orders will be obtained through (Community Based Physician - PCP)
--- NOTE | 2021-08-27 08:57 | PDOC.HHF2F_ITS ---
Home Health Certification Home Health Certification: 1. Encounter Date and Reason I certify that Siomara Quinones was seen by Maninder Haskins MD on 08/27/21 and that I had a [id number]-biic encounter with this patient that meets the physician face to face encounter requirements. 2. Clinical Findings Supporting Skilled Need and Homebound Status I certify that home health services are medically necessary, include either intermittent nursing home and/or physical/speech therapy, and that this pa tient is homebound in that absences from the home require considerable and taxing effort and are infrequent or of short duration, or are attributable to the need to receive medical care. [X] (a) Attached documentation from encounter provides clinical findings supporting skilled need and homebound status (including what assistance patient requires to leave the home). The encounter with the patient was in whole, or in part, for the following medical condition, which is the primary reason for home health care: Acute on Chronic Combined Respiratory Failure,COPD Alf:Monitor medications; new medications prescribed. Monitor use of new Non-invasive ventilation device. Physical Therapy: Speech Therapy: Homebound:Requires assistance out side of the home d/t acute and chronic conditions. 3. Certification and Authentication I certify that I composed the above information based on my clinical judgement relating to this patient's medical condition and, if applicable, clinical findings communicated to me by the NPP or inpatient physician who performed the Home Health Referral. All further orders will be obtained through Sherwin Ceja (Community Based Physician - PCP)
--- NOTE | 2021-08-27 09:18 | RESPIRATORY ---
Pt was discharged home today on home O2 with [employer], as well as a new VALENTÍN setup with [employer]. Pt was told about the process as well as the $150 copay for the VALENTÍN machine. Pt was informed that the [employer] RT will be arriving at her house around noon to help setup the machine and walk the patient through operation, use, and trouble-shooting. Pt is agreeable and understands the plan.
--- NOTE | 2021-08-27 15:23 | PDOC.CMDIS ---
- If Service Date Differs Date of service: 08/27/21 Time of Service: 15:23 LACE Index Scoring Tool - Questions: Length of Stay (in days): 4 - 6 Acuity (Admit via E.D.?): Yes Comorbidities: Congestive Heart Failure, Chronic Pulmonary Disease, Any Tumor E.D. Visits: 3 - Answers: Total Score: 15 Risk of Readmission: High Risk Care Management Discharge Reason for Hospitalization: Acute on chronic combined respiratory failure, COPD Discharge Plan: Discharge home with new [facility] RN services via private vehicle with family. New NIV device was delivered prior to discharge. Siomara will follow up with her PCP, Pulmonology and discharge plan of care as prescribed. Patient/Family Education Needs: Review discharge instructions, limitations and plan to follow up with community providers. ask me three. Services Needed at Discharge: Home Health Care Services ([facility] RN, CM notified.)
== END 2021-08-27 09:09 | disposition home health service (06) | DRG 189 ==
LOC: ER 08-23 00:27 → ICU 08-23 00:41 → MS 08-23 10:14
PROVIDERS: Family Medicine; Admitting Provider Internal Medicine; Emergency Provider Emergency Medicine; PCP Family Medicine; Visit Provider Internal Medicine
DX: J96.21 Acute and chronic respiratory failure with hypoxia (principal); J44.1 Chronic obstructive pulmonary disease with (acute) exacerbation; E87.2 Acidosis; I48.20 Chronic atrial fibrillation, unspecified; C34.91 Malignant neoplasm of unspecified part of right bronchus or lung; J96.22 Acute and chronic respiratory failure with hypercapnia; I27.81 Cor pulmonale (chronic); F17.210 Nicotine dependence, cigarettes, uncomplicated; I27.29 Other secondary pulmonary hypertension; Z79.01 Long term (current) use of anticoagulants; I50.9 Heart failure, unspecified; I11.0 Hypertensive heart disease with heart failure; R53.1 Weakness; E78.00 Pure hypercholesterolemia, unspecified
CPT/HCPCS: 36415; 51702; 71250; 80048; 82805; 87637; 93005; 94640; 96374; 96375; 99291; 36600; 83735; 83880; 84484; 85025; 93010; 94660; 99232; 99233; 99239; J1940; J2060; J2930; J7512; J7613; J7620

== ENCOUNTER 2021-09-16 19:37 | Outpatient (REF) | payer MEDICARE, SELFPAY ==
[2021-09-16 19:33] LABS: HGB 14.5 g/dL (11.2-15.7); MCH 30.3 pg (27.0-33.0); MCHC 31.5 % (32.0-36.0); MCV 96.2 fL (80-95); Platelet Count 157 10^3/uL (130-400); RBC 4.78 10^6/uL (3.93-5.22); RDW 14.9 % (11.7-14.6); RDW-SD 53.4 fL
== END 2021-09-16 19:38 | disposition home or self-care (01) ==
LOC: NCHCN 19:37
PROVIDERS: PCP Family Medicine; Visit Provider Family Medicine
DX: D69.6 Thrombocytopenia, unspecified (principal)
CPT/HCPCS: 85027

== ENCOUNTER 2022-02-15 10:38 | Outpatient (REF) | payer MEDICARE, SELFPAY ==
[2022-02-15 16:20] LABS: BUN 15 mg/dL (7-18); Calcium 8.9 mg/dL (8.5-10.1); Chloride 101 mmol/L (98-107); Glucose 133 mg/dL (74-106); Potassium 4.6 mmol/L (3.5-5.1); Sodium 141 mmol/L (136-145)
== END 2022-02-15 10:39 | disposition home or self-care (01) ==
LOC: NCHCN 10:38
PROVIDERS: PCP Family Medicine; Visit Provider Family Medicine
DX: I10 Essential (primary) hypertension (principal)
CPT/HCPCS: 80048

== ENCOUNTER 2022-02-26 00:08 | Outpatient (CLI) | payer MEDICARE, SELFPAY ==
--- NOTE | 2022-02-26 | DI.CT_ITS ---
Exam(s) CT CHEST WO EXAM: CT CHEST WO CLINICAL HISTORY: LUNG CANCER C34.11 ASSESS TREATMENT RESPONSE TECHNIQUE: COMPARISON: CT CT CHEST WO from 08/22/2021 FINDINGS: Noncontrast CT examination of the chest was performed. Current examination is compared with prior ex amination of August 22, 2021. Images obtained through the upper abdomen show some prominence of the left adrenal gland, this is not ideally visualized. Additional evaluation with adrenal MRI may be considered if clinically indicate d. There is new left hydronephrosis. There is note again made of an abdominal aortic aneurysm measuring about 33 millimeters in diameter. Areas of pleural thickening in the right lung apex are grossly unchanged from prior examination. The re are markedly increased areas of patchy consolidative opacity in the left upper lobe adjacent to th e inner lobar fissure and peripheral ground-glass opacity is noted in the left lung apex, these findi ngs are new. Minimal new streaky opacities may also be present in the left lower lobe at the lung ba se. There is no gross mediastinal adenopathy. No pleural effusion or pneumothorax. The IMPRESSION: New left hydronephrosis, of unexplained etiology. Abdominal and pelvic CT suggested for further eval uation. Question left adrenal mass, adrenal MRI may be obtained if clinically indicated. Multiple areas of new opacity in the left lung, infectious process versus metastatic disease. RADIATION DOSE DELIVERED: 442.16mGy.cm Total DLP !Error CTDIvol RADIATION OPTIMIZATION: All CT scans at this facility use at least one of these dose optimization te chniques: automated exposure control; mA and/or kV adjustment per patient size (includes targeted exa ms where dose is matched to clinical indication); or iterative reconstruction.
--- OUTSIDE RECORDS SUMMARY | 2022-02-26 00:10 | XMS_ITS ---
:1945 Author Care Team Providers Name Role Phone DR. ZANA MANJARREZ Primary Care Provider [phone] DR. ZANA MANJARREZ Referring Provider [phone] Allergies Code Code System Name Reaction Severity Status Onset NKDA ? Medications Name Status Start Date Stop Date ? ? amlodipine 2.5 mg tablet Active ? Not michell ilable Take 1 tablet every day by oral route. atorvastatin 80 mg tablet Active ? Not av ailable Take 1 tablet every day by oral route. Cromolyn Sodium (Ophth) 4 % eye solution Active ? Not available INSTILL 1-2 DROPS INTO AFFECTED EYE(S) BY OPHTHALMIC ROUTE 4 TIMES PER DAY PRN ProAir HFA 90 mcg/actuation aerosol inhaler Active ? Not available Inhale 2 puffs every 4 hours by inhalation route as needed. warfarin 2 mg tablet Active ? Not availab le Take 1 tablet every day by oral route. warfarin 5 mg tablet Completed ? 03/22/2018 Take 0.5 tablets every day by oral route. Problems Name Status Onset Date Source ? Multinodular Goiter Active ? ? Vitamin D Deficiency Active ? ? Hyperlipidemia Active ? ? Chronic Anxiety Active ? ? Tobacco Dependence Syndrome Active ? ? Chronic Depression Active ? ? Allergic Conjunctivitis Active ? ? Hypertensive Disorder Active ? ? Atrial Fibrillation Active ? ? Peripheral Arterial Occlusive Disease Active ? ? Chronic Obstructive Lung Disease Active ? ? Gastroesophageal Reflux Disease Active ? ? Notes: anticoagulatoin management Procedures Date Name Performed by ? ? Egd Information not avai lable ? Appendectomy Information not avai lable ? Hysterectomy Information not avai lable ? Cholecystectomy Information not avai lable 12/22/2018 US, Thyroid Xray [facility] [address] [place], [place] [address] (Work Place) Results Lab Results None recorded. Past Encounters None recorded. Social History Tobacco Smoking Status Current Every Day Smoker Notes: 1 p pd Vaccine List None recorded. Plan of Care Reminders Provider Appointments None recorded. ? ? Lab None recorded. ? ? Referral None recorded. ? ? Procedures None recorded. ? ? Surgeries None recorded. ? ? Imaging None recorded. ? ? Vitals Height Weight BMI Blood Pressure 162.56 cm 64.41 kg 24.4 kg/m2 100/64 mm[Hg]
== END 2022-02-26 00:28 ==
LOC: DI 00:08
PROVIDERS: PCP Family Medicine; Visit Provider Nurse Practitioner Family
DX: C34.11 Malignant neoplasm of upper lobe, right bronchus or lung (principal); N13.30 Unspecified hydronephrosis; R91.8 Other nonspecific abnormal finding of lung field
CPT/HCPCS: 71250; 80053

== ENCOUNTER 2022-02-26 14:12 | Outpatient (CLI) | payer MEDICARE, SELFPAY ==
[2022-02-26 14:20] LABS: ALT 9 U/L (14-59); AST 9 U/L (15-37); Albumin 3.1 g/dL (3.4-5.0); Alkaline Phosphatase 93 U/L (46-116); Anion Gap 4.9 mmol/L (3-11); BUN 18 mg/dL (7-18); Bilirubin, Total 0.6 mg/dL (0.2-1.0); CO2 32.1 mmol/L (21.0-32.0); Calcium 9.2 mg/dL (8.5-10.1); Chloride 102 mmol/L (98-107); Glucose 108 mg/dL (74-106); Potassium 4.1 mmol/L (3.5-5.1); Sodium 139 mmol/L (136-145); Total Protein 6.7 g/dL (6.4-8.2)
== END 2022-02-26 14:13 | disposition home or self-care (01) ==
LOC: LBO 14:17
PROVIDERS: PCP Family Medicine; Visit Provider Nurse Practitioner Family
DX: C34.11 Malignant neoplasm of upper lobe, right bronchus or lung (principal)
CPT/HCPCS: 36415; 80053

== ENCOUNTER 2022-03-16 09:58 | Outpatient (REF) | payer MEDICARE, SELFPAY ==
[2022-03-16 10:17] LABS: Source Nasal/Nares
[2022-03-16 16:45] LABS: COVID-19 PCR Negative (Negative)
== END 2022-03-16 09:59 | disposition home or self-care (01) ==
LOC: LBN 09:58
PROVIDERS: PCP Family Medicine; Visit Provider Student in an Organized Health Care Education/Training Program
DX: Z20.822 Contact with and (suspected) exposure to COVID-19 (principal); Z01.818 Encounter for other preprocedural examination
CPT/HCPCS: 87635

== ENCOUNTER 2022-03-19 06:07 | Day surgery (SDC) | payer MEDICARE, SELFPAY ==
[2022-03-19] VITALS (19 sets, daily range): BP systolic 72–131; BP diastolic 42–80; PULSE 50–71; RESP 14–20; TEMP 36.1–36.5; O2SAT 83–97; BMI 21.9
--- NOTE | 2022-03-19 06:06 | ANES.PREOP_ITS ---
General Info Date of Service Date Performed: 03/19/22 Height: 5 ft 2.99 in Weight: 56.245 kg Body Mass Index (BMI): 21.9 Surgical Procedure: Operation Date: 03/19/22 07:40 Proposed Procedure Side Surgeon p Bronchoscopy Leigha Newton MD Meds Allergies and Home Medications Allergies Allergy/AdvReac Type Severity Reaction Status Date / Time No Known Allergies Allergy Unverified 03/19/22 06:39 Home Medication Medication Instructions Recorded albuterol sulfate 90 mcg/actuation 2 puff inhalation QID PRN 11/09/18 aerosol inhaler (ProAir HFA) atorvastatin 80 mg tablet (Lipitor) 80 mg PO QPM 11/09/18 ipratropium 0.5 mg-albuterol 3 mg 3 ml UPD Q6H PRN PRN shortness of 11/16/18 (2.5 mg base)/3 mL nebulization breath or wheezing #180 mL soln rivaroxaban 20 mg tablet (Xarelto) 20 mg PO QPM #30 tabs 03/14/19 diltiazem HCl 120 mg 120 mg PO HS 09/21/19 capsule,extended release 24 hr Inhaler, Assist Devices [Pocket 1 ea miscellaneous DIRECTED ##0 08/27/21 Chamber] tiotropium 2.5 mcg-olodaterol 2.5 2 spray inhalation DAILY 03/17/22 mcg/actuation mist for inhalation (Stiolto Respimat) Current Visit Medications: Current Medications Generic Name Dose Route Start Last Admin Trade Name Freq PRN Reason Stop Dose Admin IV Miscellaneous Supplies 1 each 03/19/22 06:00 Iv Access IV 04/17/22 23:59 DIRECTED MAURA Sodium Chloride 0 ml 03/19/22 06:00 Normal Saline Flush 10 Ml Syr IV 04/17/22 23:59 PRN PRN Sodium Chloride 0 ml 03/19/22 06:00 Normal Saline 10 Ml Vial IJ 04/17/22 23:59 DIRECTED PRN Sterile Water 0 ml 03/19/22 06:00 Water,Injection,Sterile 10 Ml Vial IJ 04/17/22 23:59 DIRECTED PRN PFSH Active Problems Active Problems: Problem Status Onset Code Encounter for screening for COVID-19 Z11.52 Respiratory failure with hypoxia and hypercapnia J96.91, J96.92 NSCLC of right lung C34.91 Palliative care patient Z51.5 Pulmonary hypertension I27.20 Cor pulmonale I27.81 Weakness of both legs R29.898 Hypoxia R09.02 Requires supplemental oxygen Z99.81 Hypoxia R09.02 Shortness of breath R06.02 CHF (congestive heart failure) I50.9 Hemoptysis R04.2 DVT prophylaxis Discharge planning issues Z02.9 HTN (hypertension) I10 Atrial fibrillation I48.91 Smoker F17.200 COPD (chronic obstructive pulmonary disease) J44.9 Medical History Medical History Acute and chronic respiratory failure ([id number]) Acute exacerbation of chronic obstructive pulmonary disease Acute exacerbation of congestive heart failure Acute on chronic respiratory failure with hypoxia and hypercapnia Acute respiratory acidosis Acute respiratory failure with hypoxia and hypercapnia Atrial fibrillation Chronic respiratory failure with hypoxia and hypercapnia COPD (chronic obstructive pulmonary disease) HTN (hypertension) Hypercholesteremia Lung cancer Lung mass Pulmonary hypertension Smoker Surgical History Surgical History S/P appendectomy S/P cholecystectomy S/P hysterectomy Tobacco Smoking/Tobacco Use Status: Current every day Tobacco Type: cigarettes Years smoked: 50 Counseling given: patient declined Alcohol Alcohol Intake: never Substance Use Substance use: Never Substance use type: does not use Vital Signs and Lab Results Lab Results Blood Type / Crossmatch: No Data to Display Complete Blood Count: No Data to Display Complete Metabolic Panel: Sodium Level 139 mmol/L (136-145) 02/26/22 13:55 Potassium Level 4.1 mmol/L (3.5-5.1) 02/26/22 13:55 Chloride Level 102 mmol/L (98-107) 02/26/22 13:55 Carbon Dioxide Level 32.1 mmol/L (21.0-32.0) H 02/26/22 13:55 Blood Urea Nitrogen 18 mg/dL (7-18) 02/26/22 13:55 Creatinine 1.0 mg/dL (0.55-1.02) 02/26/22 13:55 Estimated GFR/1.73 m2 54.20 (mL/min/1.73m2) 02/26/22 13:55 Calcium Level 9.2 mg/dL (8.5-10.1) 02/26/22 13:55 Albumin 3.1 g/dL (3.4-5.0) L 02/26/22 13:55 Glucose Level 108 mg/dL (74-106) H 02/26/22 13:55 Liver Function Panel: Alanine Aminotransferase (ALT/SGPT) 9 U/L (14-59) L 02/26/22 13 :55 Aspartate Amino Transf (AST/SGOT) 9 U/L (15-37) L 02/26/22 13:5 5 Coagulation Panel: No Data to Display Cardiac Panel: No Data to Display Arterial Blood Gas: No Data to Display Venous Blood Gas: No Data to Display Pancreas Panel: No Data to Display Thyroid Panel: No Data to Display Infectious Disease: Coronavirus (COVID-19)(PCR) Negative (Negative) 03/16/22 09:30 Coronavirus 2019 Source Nasal/Nares 03/16/22 09:30 Blood Cultures: No Data to Display Toxicology Panel: No Data to Display Imaging and Studies Imaging and Studies Study information below may be from another EMR and interpreted by another provider. Please see original notes in EMR for more complete details. EKG Summary: 08/2021: a fib, old AMI. Stress Test Summary: 2015: normal. LVEF 65% Echocardiogram Summary: 08/2021: LVEF 60%, RVfxn normal, LA mod dilation, right atrium severe dilation. mild MR. moderate TR. RSVP 63 mmhg. moderate MO. Carotid Artery Summary:: 2015: critical left ICA. Anesthesia Assessment and Plan Anesthesia History Personal History: No History of Anesthesia Complications Family History: No Family History of Anesthesia Complications Exercise Tolerance Exercise Tolerance: Metabolic Equivalents>4 Cardiac & Pulmonary Exam Cardiac Exam: Normal S1/S2 Heart Sounds Pulmonary Exam: Clear Bilateral Breath Sounds Implantable Cardiac Device Does patient have a Pacemaker or an ICD?: No Airway Exam Known Difficult Airway: No Mallampati Class: 3 Mouth Opening: Narrow (< 3cm) Thyromental Distance: Less than 3 cm Neck Range of Motion: Full ROM Neck Circumference: Normal Teeth Condition: Edentulous ASA Classification ASA Score: ASA 3 Emergency Case?: No NPO Status NPO Status: NPO Clears >2 hours, Solids >8 hours Anesthesia Plan Resuscitation Status: Full Code Anesthesia Technique: MAC Anesthesia Airway Planned: Natural Airway Monitors Used: Standard Monitors Preoperative Comments:: 76 yo female with complicated medical history for bronch. Sig PMHx: COPD/pHTN/smoker, NSCLC, chronic hypoxic and hypercapnic respiratory failure, HTN, afib (dilt/ribaroxaban - held due to hemoptysis)). Discussed plan of primary topical for her anesthesia for the bronch with a small amount of sedation. she understands and agrees to the plan.
[2022-03-19] MEDS: Lactated Ringers 1,000 ML 30 ML IV (07:32)
[2022-03-19] MEDS: Lidocaine 1% Pres-Free 30 ML VIAL (08:05)
[2022-03-19] MEDS: Lidocaine 2% Multi-Dose 50 ML VIAL (08:05)
--- NOTE | 2022-03-19 08:23 | PAPNONF_PTH ---
PATIENT: Siomara Quinones LOC: [facility] U#:[id number] AGE/SX: 76/F ROOM: RE03/19/[address]: Leigha Newton MD : 1945 BED: DIS: 03/19/2022 SPEC #: [id number] RECD: 03/19/22 08:58 STATUS: OLIVIA REEstefania #: [id number] HODA: 03/19/22 08:[address]: Leigha Newton DEPT: [facility] Cytology RECD BY: Demetria Maxwell ENTERED: 03/19/22 09:00 SP TYPE: PAPGRECIA GARCIA DR: Sherwin Ceja Tissues: 1 - BODY FLUID CYTO(NOT S/U/N/EM)[facility] 2 - BODY FLUID CYTO(NOT S/U/N/EM)[facility] Procedures: BODY FLUID CYTO(NOT SPU/UR/NIP/ENDOM)[facility] Comments: [id number] (REFRIGERATED)
--- NOTE | 2022-03-19 09:10 | W.PM.OP ---
Date of service: 03/19/22 Time of Service: 07:45 Operative Note Operative Note PRE-OP DIAGNOSIS: Pulmonary infiltrate POST-OP DIAGNOSIS: same PROCEDURE: Flexible Bronchoscopy Refer to Anesthesia Record Procedure Description: Bronchoscopy Indication:Known lung cancer with ner pulmonary consolidations Procedure performed: Flexible bronchoscopy with BAL and bronchial washings Sedation plan: Conscious sedation Medications used: see anesthesia record Informed consent was obtained after the risks and benefits or the procedure were discussed. The patient?s nasal passage was numbed with 2% topical lidocaine using cotton swabs. The patient also gurgled 2% lidocaine twice. A proper and complete OR compliant time out was performed. The therapeutic 6.2mm Olympus bronchoscope was inserted through the left nares and the vocal cords were visualized. The vocal cords were normal in appearance and normal in function. 3cc of 2% topical lidocaine was used to anesthetize the vocal cords. The bronchoscope was inserted into the airways, were 4cc in total of 1% topical lidocaine was used the anesthetize the airways. The trachea was midline and without lesion or injury. The mucosa appeared normal and there were no signs of tracheomalacia. The koko was sharp. All bronchial subsegments were visualized within each lobe and showed normal appearance with minimal secretions, with the exception of the lingula take off which was erythematous in nature with thick white secretions present. The secretions were suctioned where able. A bronchoalveolar lavage was performed in the lingula. A total of 120 cc of saline was administered with a return of 15 cc. The fluid was slightly cloudy in appearance with cellular debris mixed with some blood. The BAL was technically challenging due to easy collapsibility with application of small amount of negative pressure. After the BAL there was further irritation tothe airways with some oozing. I treated this with 10cc of cold normal saline which resolved the bleeding. The bronchoscope was then removed and the case terminated. The patient was taken to PACU in stable condition. Samples collected:BAL and bronchial washings Testing ordered:cytopathology, bacterial and fungal cultures, cell diff. Complications:None The findings are consistent with a pneumonia on exam and so will send a Rx for an antibiotic (Augmentin) for treatment. Leigha Newton MD Pulmonary & Critical Care Medicine
[2022-03-19] MEDS: Albuterol 2.5 MG/3 ML INH SOLN VIAL (12:18)
[2022-03-21 13:55] LABS: Gram Smear Result Neutrophils Present
[2022-03-23 08:51] LABS: Lymphocytes Fluid Relative 6 %; Mono/Macrophage Fluid Relative 9 %; Neutrophils Fluid Relative 85 %
--- NOTE | 2022-03-23 11:01 | W.ANESPOSTOP ---
Postoperative Evaluation Date, Time and Location Date Performed: 03/23/22 Time Performed: 11:01 Patient Location: Day Surgery Unit Vital Signs Most Recent Imported Vital Signs: Most Recent Vital Signs Temp Pulse Resp BP Pulse Ox 36.2 C L 71 18 108/61 88 L 03/19/22 09:22 03/19/22 12:42 03/19/22 12:42 03/19/22 12:42 03/19/22 12:42 Pain Score Most Recent Pain Score: Most Recent Pain Score Pain Level 0 03/19/22 09:22 Assessment Mental Status: Other Airway and Respiratory Function: Other Cardiovascular Function: Other Hydration Status: Adequately Hydrated Nausea & Vomiting: No Nausea or Vomiting Pain: Other Peripheral Nerve Block: Other Postoperative Comments:: Please refer to 03/20/22 @ 3142 for actual post op note,
[2022-04-16 12:34] LABS: Fungus Smear No Fungi Seen
[2022-04-16 12:38] LABS: Fungus Smear No Fungi Seen
== END 2022-03-19 13:40 | disposition home or self-care (01) ==
PROVIDERS: PCP Family Medicine; Visit Provider Student in an Organized Health Care Education/Training Program
PROC: 0BJ08ZZ Inspection of Tracheobronchial Tree, Via Natural or Artificial Opening Endoscopic (ICD-10-PCS; CPT 31622; principal; 2022-03-19 07:30)
DX: C34.91 Malignant neoplasm of unspecified part of right bronchus or lung (principal); J44.9 Chronic obstructive pulmonary disease, unspecified; F17.210 Nicotine dependence, cigarettes, uncomplicated; Z79.899 Other long term (current) drug therapy; R84.6 Abnormal cytological findings in specimens from respiratory organs and thorax
CPT/HCPCS: 31624; 80162; 87070; 87077; 87102; 87186; 87205; 87206; 88104; J2250; J2405; J3010; J7613

== ENCOUNTER 2022-03-19 15:53 | Inpatient (IN) | payer MEDICARE, SELFPAY ==
[2022-03-19] VITALS (38 sets, daily range): BP systolic 96–160; BP diastolic 41–144; PULSE 61–102; RESP 16–30; TEMP 36.3–37.2; O2SAT 67–97
--- NOTE | 2022-03-19 15:45 | RT.EKG_ITS ---
APPROVED REPORT Exam: Resting ECG Reason for Exam: DYSPNEA Patient Location: E HR:77 bpm ECG Measurements Heart Rate 77 AXIS MN [id number] P [id number] QRSd 77 QRS 12 QT 377 T -7 QTc 426 Conclusion Atrial fibrillation...V-rate 63- 84, irreg A-activity Ventricular premature complex...V complex w/ short R-R interval Probable anterior infarct, age indeterminate...Q >35mS, T neg, V2-V5 sinus rhythm, 1st degree av block, normal axis, non inschemic
--- NOTE | 2022-03-19 16:00 | DI.RAD_ITS ---
Exam(s) XR PORTABLE CHEST AP EXAM: XR PORTABLE CHEST AP CLINICAL HISTORY: bronch today, concern for pneumothorax TECHNIQUE: 2D digital imaging was performed. COMPARISON: CR,XR XR CHEST 2V PA LATERAL from 08/19/2021 FINDINGS: LUNGS: Infiltrate left lower lobe. Scarring right upper lobe. No effusion or pneumothorax. HEART: Normal. No pneumomediastinum. AORTA: Calcified BONES: Unremarkable for age. Soft tissues: Unremarkable. IMPRESSION: Left lower lobe pneumonia. DATA REPOSITORY: RADIATION DOSE DELIVERED:
[2022-03-19 16:33] LABS: Abs Immature Grans 0.04 10^3/uL (0.0-0.06); Absolute Lymphocyte Count 0.85 10^3/uL (1.2-3.4); Absolute Monocyte Count 0.64 10^3/uL (0.1-0.8); Basophils % 0.4; Eosinophils % 0.1; HCT 44.3 % (36.0-46.0); HGB 14.1 g/dL (11.2-15.7); Immature Grans % 0.3; Lymphocytes % 6.2; MCH 30.9 pg (27.0-33.0); MCHC 31.8 % (32.0-36.0); MCV 97 fL (80-95); Monocytes % 4.7; Neutrophils % 88.3; Platelet Count 235 10^3/uL (130-400); RBC 4.56 10^6/uL (3.93-5.22); RDW 15.9 % (11.7-14.6); RDW-SD 57.5 fL; WBC 13.71 10^3/uL (4.4-10.8)
[2022-03-19 16:35] LABS: Absolute Basophil Count 0.05 10^3/uL (0.0-0.2); Absolute Eosinophil Count 0.01 10^3/uL (0.0-0.7); Absolute Neutrophil Count 12.11 10^3/uL (1.2-6.7)
--- NOTE | 2022-03-19 16:45 | DI.CT_ITS ---
Exam(s) CT CHEST PE CTA EXAM: CT CHEST PE CTA CLINICAL HISTORY: bronch today, hypoxia; pneumo v hemo v PE. TECHNIQUE: Imaging Protocol: CT angiography of the chest was performed using pulmonary embolus kiara col. Multi planar reconstructions were performed. CONTRAST MATERIAL: Intravenous: Omnipaque 350 Contrast volume: 100 cc COMPARISON: CT CT CHEST WO from 02/26/2022 FINDINGS: Study performed 03/19/2022 submitted to me for interpretation on today's date, Tuesday03/22/2022. Fi rst read by [facility] on 03/19/2022. CHEST: PULMONARY ARTERIES: There is an intra arterial filling defect in the right upper lobe sub apical ruth on. LUNGS: Nodular infiltrate the anterior segment of the left upper lobe again noted. Also on the prese nt study is increased infiltrate in the apical posterior segment of the left upper lobe. This extend s down to involve the entire lingular segment. Also involves the basal segments of the left lower lo be and there is a small left pleural effusion now evident. In the opposite-right lung there is pleur al based infiltrate in the sub apical right upper lobe again noted. No new right lung infiltrate. N o pleural effusion on the right side MEDIASTINUM: There is no hilar nor mediastinal adenopathy. 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 The largest calcified nodule is in the left lobe. CARDIAC: Cardiomegaly. There is no pericardial effusion. Ventricular ratio is 1: 1. Minimal reflux of contrast into the intrahepatic IVC. No prominent shift of the interventricular septum evident.Ca liber of the ascending thoracic aorta is upper normal. Diameter of the aortic arch is upper normal. Diameter of the descending thoracic aorta is upper normal. There is no evidence of aortic dissectio n. Lowermost images of this study reveal an abdominal aortic aneurysm which exhibits diameter of 3.3 cm but not completely included in the field of view of this chest study. PARTIALLY VISUALIZED UPPERMOST ABDOMEN: Abdominal aortic aneurysm. Gallbladder surgically absent. N o splenomegaly. Left kidney may be hydronephrotic. Only small amount of fluid in the field of view. OSSEOUS: Sclerotic involvement of the right sided pedicle of T7 vertebral body. Similar but lesser f inding seen above this in the T5-6 level.. IMPRESSION: 1. Subtle suggestion of subsegmental pulmonary emboli within the right upper lobe.. 2. Increased confluent infiltrate in the left upper lobe apical posterior segment and extending down to involve the entire lingular segment. Also small left pleural effusion now evident. 3. Unchanged lateral infiltrate in the right upper lobe, possibly chronic scarring. 4. There is mild cardiomegaly and right ventricular to left ventricular ratio is 1.0, mildly elevate d. RADIATION DOSE DELIVERED: 286.68mGy.cm Total DLP DATA REPOSITORY: All CT scans at this facility are submitted to the National Radiology Data Registry (NRDR) Dose Index Registry (DIR) with the [employer] (A[employer]). RADIATION OPTIMIZATION: All CT scans at this facility use at least one of these dose optimization te chniques: automated exposure control; mA and/or kV adjustment per patient size (includes targeted exa ms where dose is matched to clinical indication); or iterative reconstruction.
--- NOTE | 2022-03-19 16:47 | ED.GENADUL_ITS ---
Discharge Plan Disposition Patient Disposition: [facility] INPATIENT Condition: Fair Discharge Details Chief Complaint: RespSymp Clinical Impression: Pulmonary emboli, Pneumonia Primary Care Provider: Sherwin Ceja ED Provider: Maninder Martinez Home Meds and New Rx's Prescriptions: No Action Xarelto 20 mg tablet 20 mg PO QPM Qty: 30 11RF Rx Instructions: must administer with evening meal diltiazem HCl 120 mg capsule,extended release 24hr 120 mg PO HS atorvastatin [Lipitor] 80 mg Tablet 80 mg PO QPM albuterol sulfate [ProAir HFA] 90 mcg/actuation Hfa Aerosol Inhaler 2 puff INHALATION QID PRN ipratropium-albuterol 0.5 mg-3 mg(2.5 mg base)/3 mL Solution For Nebulization 3 ml UPD Q6H PRN PRN (Reason: shortness of breath or wheezing) Qty: 180 0RF Inhaler, Assist Devices [Pocket Chamber] 1 ea miscellaneous DIRECTED Qty: 0 0RF Stiolto Respimat 2.5-2.5 mcg/actuation mist 2 spray INHALATION DAILY Label Comments: Inhale 2 puff as directed once a day Medical Decision Making 76-year-old female active lung cancer, history of COPD, presents with shortness of breath and left-sided chest pain, underwent bronchioloalveolar lavage earlier this morning, likely underlying pneumonia, must consider pneumothorax versus hemothorax versus PE versus effusion versus less likely ACS or aortic pathology. Screening labs imaging nebs, oxygenation went from the 70s to the mid 90s on 3 L nasal cannula. Close reassessment of symptomatology disposition admission likely 19: 20 persistent pneumonia, evidence of bilateral subsegmental PE, one-to-one RV LV ratio however patient does have a history of pulmonary hypertension, currently stable, still on supplemental O2, spoke with waterway traffic checker Dr. Richards who is okay with patient restarting her Xarelto. We will admit for close observation of respiratory status. HPI General Date/Time Provider Initiated Documentation: 03/19/22 16:00 . HPI Narrative: 76-year-old female history of COPD, lung cancer, recent bronchial alveolar lavage this morning discharged from PACU, presents with left-sided chest pain and shortness of breath oxygen saturations in the mid 70s at home. There is left-sided chest pain worse with breathing. Related Data Home Medications Medication Instructions Recorded Confirmed albuterol sulfate 90 mcg/actuation 2 puff inhalation QID PRN 11/09/18 03/19/22 aerosol inhaler (ProAir HFA) atorvastatin 80 mg tablet (Lipitor) 80 mg PO QPM 11/09/18 03/19/22 ipratropium 0.5 mg-albuterol 3 mg 3 ml UPD Q6H PRN PRN shortness of 11/16/18 03/19/22 (2.5 mg base)/3 mL nebulization breath or wheezing #180 mL soln rivaroxaban 20 mg tablet (Xarelto) 20 mg PO QPM #30 tabs 03/14/19 03/19/22 diltiazem HCl 120 mg 120 mg PO HS 09/21/19 03/19/22 capsule,extended release 24 hr Inhaler, Assist Devices [Pocket 1 ea miscellaneous DIRECTED ##0 08/27/21 03/19/22 Chamber] tiotropium 2.5 mcg-olodaterol 2.5 2 spray inhalation DAILY 03/17/22 03/19/22 mcg/actuation mist for inhalation (Stiolto Respimat) Previous Rx's Medication Instructions Recorded ipratropium 0.5 mg-albuterol 3 mg 3 ml UPD Q6H PRN PRN shortness of 11/16/18 (2.5 mg base)/3 mL nebulization breath or wheezing #180 mL soln rivaroxaban 20 mg tablet (Xarelto) 20 mg PO QPM #30 tabs 03/14/19 Inhaler, Assist Devices [Pocket 1 ea miscellaneous DIRECTED ##0 08/27/21 Chamber] Allergies Allergy/AdvReac Type Severity Reaction Status Date / Time No Known Allergies Allergy Unverified 03/19/22 16:10 General Stated Complaint: RespSymp BOGDAN: 2 Review of Systems Narrative: Review of Systems Constitutional: negative Eyes: negative ENT: negative Cardiovascular: Left-sided chest discomfort Respiratory: Shortness of breath Gastrointestinal: negative : negative Musculoskeletal: negative Skin: negative Neurologic: negative Psych: negative PFSH All Active Problems (Updated 03/19/22 @ 19:24 by Maninder Martinez MD) Pulmonary emboli (Chronic) Pneumonia (Acute) Encounter for screening for COVID-19 (Acute) Respiratory failure with hypoxia and hypercapnia (Acute) NSCLC of right lung (Acute) Palliative care patient (Acute) Pulmonary hypertension (Acute) Cor pulmonale (Acute) Weakness of both legs (Acute) Hypoxia (Acute) Requires supplemental oxygen (Acute) Hypoxia (Acute) Shortness of breath (Acute) CHF (congestive heart failure) (Chronic) Hemoptysis (Acute) DVT prophylaxis (Acute) Discharge planning issues (Acute) HTN (hypertension) (Chronic) Atrial fibrillation (Chronic) Smoker (Acute) COPD (chronic obstructive pulmonary disease) (Chronic) Medical History Acute and chronic respiratory failure ([id number]) Acute exacerbation of chronic obstructive pulmonary disease Acute exacerbation of congestive heart failure Acute on chronic respiratory failure with hypoxia and hypercapnia Acute respiratory acidosis Acute respiratory failure with hypoxia and hypercapnia Atrial fibrillation Chronic respiratory failure with hypoxia and hypercapnia COPD (chronic obstructive pulmonary disease) HTN (hypertension) Hypercholesteremia Lung cancer Lung mass Pulmonary hypertension Smoker Surgical History S/P appendectomy S/P cholecystectomy S/P hysterectomy Family History Father Hemochromatosis Cirrhosis due to hemochromatosis Diabetes Daughter Heart disease [place] in 40s Social History Smoking/Tobacco Use Status: Current every day Tobacco Type: cigarettes Years smoked: 50 Quit status: considering quitting Counseling given: patient declined Smoking risk assessment performed?: Yes Alcohol Intake: never Drug use: Never Substance use type: does not use What type of physical activity do you participate in: none Do you feel safe at home: Yes Do you feel safe in your relationship?: Yes Additional Social history: lives alone Exam Narrative Exam Narrative: Physical Examination General: alert, awake, cooperative, resting comfortably, no acute distress HEENT: normocephalic, atraumatic; PERRL, EOM intact, conjunctiva normal; no nasal discharge; moist mucous membranes, oral and pharyngeal mucosa normal, tolerating secretions Neck: supple, trachea midline; full ROM Chest: normal to inspection, no chest wall crepitus Respiratory: normal respiratory effort, speaking in full sentences, slight crackles bilaterally, present lung sounds on the left however less clear than on the right, no chest wall crepitus Cardiac: regular rate, regular rhythm, S1S2 intact, no murmurs rubs or gallops GI: abdomen soft, non-tender, non-distended; no palpable mass or hepatosplenomegaly Skin: no lesions, rashes or trauma appreciated Neuro: AAOx3, normal speech, moving all extremities Psych: Appropriate mood and affect Course Vital Signs Vital signs: Vital Signs Temperature 36.3 C L 03/19/22 15:58 Pulse 79 03/19/22 15:58 Respiratory Rate 24 03/19/22 15:58 Blood Pressure 117/48 L 03/19/22 15:58 Pulse Oximetry 80 L 03/19/22 15:58 Temperature 36.3 C L 03/19/22 15:58 Temperature Source Temporal Artery Scan 03/19/22 15:58 Pulse 79 03/19/22 15:58 Respiratory Rate 24 03/19/22 15:58 Respiratory Effort 03/19/22 16:08 Respiratory Depth Normal 03/19/22 16:07 Blood Pressure 117/48 L 03/19/22 15:58 Blood Pressure Position Sitting 03/19/22 15:58 Pulse Oximetry 97 03/19/22 16:24 Oxygen Delivery Method Nasal Cannula 03/19/22 16:24 Oxygen Flow Rate 3 03/19/22 16:24 Lab/Test Results Lab/Test Results: Laboratory Tests Range/Units 03/19/22 16:22 WBC (4.4-10.8) 10^3/uL 13.71 H RBC (3.93-5.22) 10^6/uL 4.56 Hgb (11.2-15.7) g/dL 14.1 Hct (36.0-46.0) % 44.3 MCV (80-95) fL 97 H MCH (27.0-33.0) pg 30.9 MCHC (32.0-36.0) % 31.8 L RDW (11.7-14.6) % 15.9 H Plt Count (130-400) 10^3/uL 235 MPV (8.0-11.0) fL 10.0 Immature Gran % 0.3 Neutrophils % 88.3 Lymphocytes % 6.2 Monocytes % 4.7 Eosinophils % 0.1 Basophils % 0.4 Nucleated RBC % (0.0-0.3) % 0.0 Absolute Neutrophils (1.2-6.7) 10^3/uL 12.11 H Absolute Lymphocytes (1.2-3.4) 10^3/uL 0.85 L Absolute Monocytes (0.1-0.8) 10^3/uL 0.64 Absolute Eosinophils (0.0-0.7) 10^3/uL 0.01 Absolute Basophils (0.0-0.2) 10^3/uL 0.05
[2022-03-19 16:51] LABS: ALT 14 U/L (14-59); AST 17 U/L (15-37); Albumin 3.4 g/dL (3.4-5.0); Alkaline Phosphatase 110 U/L (46-116); Anion Gap 6.8 mmol/L (3-11); BUN 17 mg/dL (7-18); Bilirubin, Total 0.5 mg/dL (0.2-1.0); CO2 34.2 mmol/L (21.0-32.0); CREATININE 0.8 mg/dL (0.55-1.02); Calcium 8.9 mg/dL (8.5-10.1); Chloride 96 mmol/L (98-107); Glucose 124 mg/dL (74-106); Potassium 4.1 mmol/L (3.5-5.1); Sodium 137 mmol/L (136-145); Total Protein 7.2 g/dL (6.4-8.2)
[2022-03-19 16:52] LABS: PTT Activated 23.8 sec (21.0-27.5); Prothrombin Time 10.4 sec (9.3-11.0)
[2022-03-19] MEDS: Ipratropium 0.5 MG/2.5 ML UPD VIAL UPD (17:00)
[2022-03-19] MEDS: Levalbuterol 1.25 MG/3 ML UPD VIAL UPD (17:14)
[2022-03-19] MEDS: Omnipaque 350 MG/ML 100 ML BTL 60 ML IJ (18:04)
[2022-03-19 18:13] LABS: NT-proBNP 3391 pg/mL (<300)
[2022-03-19 18:20] LABS: Troponin I < 50 ng/L (<or=60)
[2022-03-19] MEDS: Ketorolac 15 MG/ML VIAL IVP (18:33)
--- NOTE | 2022-03-19 18:53 | DI.VRAD_ITS ---
PROCEDURE INFORMATION: Exam: CTA Chest With Contrast Exam date and time: 03/19/2022 5:53 PM Age: 76 years old Clinical indication: Other: Bronch today, hypoxia, pneumo v hemo v pe TECHNIQUE: Imaging protocol: Computed tomographic angiography of the chest with contrast. 3D rendering (Not supervised by radiologist): MIP and/or 3D reconstructed images were created by the technologist. Contrast material: 350; Contrast volume: 60 ml; Contrast route: INTRAVENOUS (IV); COMPARISON: 02/26/2022. FINDINGS: Pulmonary arteries: There are subsegmental acute pulmonary emboli within the apical segment of the right upper lobe on images 144 and 119, series 7. There is also a subsegmental pulmonary embolism within the superior segment of the left lower lobe on image 275, series 7. Aorta: There is a partially imaged fusiform abdominal aortic aneurysm measuring at least 3.2 x 3.5 cm, without clear change from prior study. There is moderate to severe atherosclerotic calcification throughout the thoracic aorta without evidence for aneurysm or dissection. Thyroid: Again noted are multiple small heterogeneous low-dense thyroid lesions, some which contain calcifications, without clear change. Lungs: There is increased patchy and confluent airspace opacity within the left upper lobe, mostly within the lingular segment as well as the posterior aspect of the apicoposterior segment, with mild surrounding ground-glass opacity, suggesting pneumonia. There is increased basilar left lower lobe airspace opacity as well, some of which represents atelectasis but cannot exclude pneumonia in this region. Again noted is focal wedge-shaped lateral apical right upper lobe opacity around image 90, series 7, suggesting chronic scarring/atelectasis. There is also increased atelectasis within the base of the right lower lobe posteriorly. There is increased mucous plugging within the bronchus intermedius as well as within the lingular segment of the left upper lobe and within the left lower lobe. Pleural spaces: There is a small freely layering left pleural effusion which is increased in size since prior study. The pleural fluid demonstrates simple fluid attenuation. Heart: There is mild cardiomegaly. The right ventricular to left ventricular ratio is 1.0, which is mildly elevated. Lymph nodes: There are scattered prominent subcentimeter mediastinal and hilar lymph nodes, unchanged, likely reactive. Liver: There is a sub cm low-dense lesion within the left hepatic lobe which is too small to characterize but likely represents a benign cyst or biliary hamartoma. Gallbladder and bile ducts: There has been a cholecystectomy. Adrenal glands: There is diffuse bilateral nonspecific mild adrenal enlargement, suggesting hyperplasia. Kidneys and ureters: Again noted is [id number] left hydronephrosis, without clear change, although only the upper pole the left kidney is imaged on this exam, limiting evaluation. Bones/joints: Unremarkable. No acute fracture. Soft tissues: Unremarkable. IMPRESSION: 1. Three acute subsegmental pulmonary emboli. 2. The right ventricular to left ventricular ratio is 1.0, which is mildly elevated suggesting mild right heart strain. 3. Increased patchy and confluent airspace opacity within the left upper lobe with regions of surrounding ground-glass opacity, suggesting pneumonia. 4. Increased airspace opacity within the base of the left lower lobe, most of which likely represents atelectasis. 5. Increased mucous plugging within the central airways as described above. 6. Increased small freely layering simple left pleural effusion. 7. Mild cardiomegaly. 8. [id number] left hydronephrosis, as on prior study, only partially imaged on this exam. Findings suggest obstructive process involving the left ureter or bladder. Further evaluation with abdominopelvic CT could be obtained. 9. Multiple small low-dense thyroid lesions, stable since prior study. Recommend further evaluation with thyroid ultrasound. COMMENT: THIS REPORT CONTAINS FINDINGS THAT MAY BE CRITICAL TO PATIENT CARE. The exam findings were verbally communicated by me to Maninder Martinez via telephone conference at 6:50 PM EDT on 03/19/2022. The findings were acknowledged and understood. Dictated and Authenticated by: hSerwin Morris MD. Ordering:GEO Dickens MD
[2022-03-19 20:33] LABS: Source Nasal/Nares
[2022-03-19 21:22] LABS: COVID-19 PCR Negative (Negative)
--- NOTE | 2022-03-19 22:26 | HPE_ITS ---
Date of service: 03/19/22 Time of Service: 22:26 Assessment and Plan Assessment and plan (1) Pneumonia: Status: Acute Assessment and plan: Bronchoscopy findings consistent with pneumonia, also seen more clearly on imaging. No antibiotics started in the ED. Will treat with ceftriaxone and doxycycline. BAL already done today with cultures pendings. (2) Pulmonary emboli: Status: Chronic Assessment and plan: New pulmonary emboli, with possible strain on CT scan. We are resuming rivar oxaban therapy (on this rather than apixaban as she is able to afford it as outpatient). Hemoptysis may get worse but we will monitor. (3) Atrial fibrillation: Status: Chronic Assessment and plan: Rate control with diltiazam. She is resuming anticoagulation. Unfortunately there is a possible interaction of these two meds that can increase rivaroxaban. We could consider transition to beta surinder retirement. Qualifiers: Atrial fibrillation type: permanent Qualified Code(s): I48.2 - Chronic atrial fibrillation (4) Smoker: Status: Acute Assessment and plan: Contemplative. Can use NRT prn. encouraged. (5) COPD (chronic obstructive pulmonary disease): Status: Chronic Assessment and plan: Continue outpatient inhalers (she didn't like Trelegy but is using stiolto). I don't think she is having an exacerbation right now so I did not start steroids. (6) NSCLC of right lung: Status: Acute Assessment and plan: The had been quiescent, but some new concerning findings on CT in February. Cytology was sent from BAL. PET pending, but with hydronephrosis we should get CT A/P now. (7) DVT prophylaxis: Status: Acute Assessment and plan: on rivaroxaban (8) Cor pulmonale: Status: Acute Assessment and plan: As above no signs of CHF now on exam. Monitor. (9) Hydronephrosis: Status: Acute Assessment and plan: unclear etiology, but concern for obstruction. Get CT A/P. (10) Discharge planning issues: Status: Acute Assessment and plan: STable on medical floor. SHe is a palliative patient so will consult. History of Present Illness History of Present Illness Chief Complaint: chest pain after bronchoscopy Narrative: 76 yo F with COPD, smoker, NSC lung cancer, and history of HFpEF with cor pulmonale, and Afib who had a diagnostic bronchoscopy with bronchioaviolar lav age this morning with Dr. Newton. She returned to the hospital in the afternoon with new left sided chest pain and worse shortness of breath and O2 saturations in the mid 70s at home. She felt okay immediately after her bronchoscopy, was hungry and went home. While at home developed left sided l ower chest to flank pain that radiated up to the left shoulder. It is associated with some shortness of breath. No dizziness, fever, diaphoresis, nausea, or syncope. She does have some blood in sputum, but this has been chronic. Bronchoscopy was done to evaluated new infiltrates seen on 02/26/22 that were not present on imaging 08/2021. She was felt too high risk for transbronchial biopsy but had bronchioaviolar lavage. Findings were consistent with infection and cytology and cultures were sent. Dr. Newton prescribed Augmentin but the patient had not picked it up. Of note, she had been off her rivaroxaban that she takes for chronic atrial fibrillation since her 03/04/[address] Newton, due to concern of hemoptysis and pending bronchoscopy. Review of Systems Constitutional Constitutional: Denies chills, Denies fever(s), Denies headache(s), Reports lethargy, Denies weakness and Reports weight loss (slow weight loss) Eyes Eyes: Denies change in vision and Denies irritation ENT Ears, Nose, Mouth, and Throat: Denies dysphagia, Denies dizziness, Denies headache(s), Denies nasal congestion, Denies nasal discharge and Denies sore throat Cardiovascular Cardiovascular: Denies lightheadedness, Denies palpitations and Denies orthopnea Respiratory Respiratory: Reports hemoptysis, Reports excessive phlegm production and Reports wheezing Gastrointestinal Gastrointestinal: Denies abdominal pain, Denies constipation, Denies dysphagia, Denies heartburn, Denies diarrhea and Denies vomiting Genitourinary Genitourinary: Denies hematuria, Denies dysuria and Denies urinary incontinence Integumentary/Breasts Skin/Breast: Denies rash and Denies skin ulcer Neurologic Neurologic: Denies dizziness, Denies headache(s), Denies sensory deficit and Denies weakness Psychiatric Psychiatric: Denies mood swings Endocrine Endocrine: Denies palpitations Hematologic/Lymphatic Hematologic/Lymphatic: Denies easy bleeding Allergic/Immunologic Allergic/Immunologic: Reports wheezing [facility] Active Problems (Updated 03/19/22 @ 23:26 by Sherwin Ceja) Hydronephrosis (Acute) Pulmonary emboli (Chronic) Pneumonia (Acute) Respiratory failure with hypoxia and hypercapnia (Acute) NSCLC of right lung (Acute) Palliative care patient (Acute) Pulmonary hypertension (Acute) Cor pulmonale (Acute) Weakness of both legs (Acute) Hypoxia (Acute) Requires supplemental oxygen (Acute) Hypoxia (Acute) Shortness of breath (Acute) CHF (congestive heart failure) (Chronic) Hemoptysis (Acute) DVT prophylaxis (Acute) Discharge planning issues (Acute) HTN (hypertension) (Chronic) Atrial fibrillation (Chronic) Smoker (Acute) COPD (chronic obstructive pulmonary disease) (Chronic) Medical History Acute and chronic respiratory failure ([id number]) Acute exacerbation of chronic obstructive pulmonary disease Acute exacerbation of congestive heart failure Acute on chronic respiratory failure with hypoxia and hypercapnia Acute respiratory acidosis Acute respiratory failure with hypoxia and hypercapnia Atrial fibrillation Chronic respiratory failure with hypoxia and hypercapnia COPD (chronic obstructive pulmonary disease) HTN (hypertension) Hypercholesteremia Lung cancer Lung mass Pulmonary hypertension Smoker Surgical History S/P appendectomy S/P cholecystectomy S/P hysterectomy Family History (Updated 03/19/22 @ 23:17 by Sherwin Ceja) Father Hemochromatosis Cirrhosis due to hemochromatosis Diabetes Daughter Heart disease [place] in 40s Social History (Updated 03/19/22 @ 23:16 by Sherwin Ceja) Smoking/Tobacco Use Status: Current every day Tobacco Type: cigarettes Years smoked: 50 Quit status: considering quitting Counseling given: patient declined Smoking risk assessment performed?: Yes Alcohol Intake: never Drug use: Never Substance use type: does not use What type of physical activity do you participate in: none Do you feel safe at home: Yes Do you feel safe in your relationship?: Yes Additional Social history: lives alone, but a lot of family in the area. of lung cancer Meds Allergies and Home Medications Allergies Allergy/AdvReac Type Severity Reaction Status Date / Time No Known Allergies Allergy Unverified 03/19/22 16:10 Home Medications Medication Instructions Recorded Confirmed Type albuterol sulfate 90 mcg/actuation 2 puff inhalation QID PRN 11/09/18 03/19/22 History aerosol inhaler (ProAir HFA) atorvastatin 80 mg tablet (Lipitor) 80 mg PO QPM 11/09/18 03/19/22 History ipratropium 0.5 mg-albuterol 3 mg 3 ml UPD Q6H PRN PRN shortness of 11/16/18 03/19/22 Rx (2.5 mg base)/3 mL nebulization breath or wheezing #180 mL soln rivaroxaban 20 mg tablet (Xarelto) 20 mg PO QPM #30 tabs 03/14/19 03/19/22 Rx diltiazem HCl 120 mg 120 mg PO HS 09/21/19 03/19/22 History capsule,extended release 24 hr Inhaler, Assist Devices [Pocket 1 ea miscellaneous DIRECTED ##0 08/27/21 03/19/22 Rx Chamber] tiotropium 2.5 mcg-olodaterol 2.5 2 spray inhalation DAILY 03/17/22 03/19/22 History mcg/actuation mist for inhalation (Stiolto Respimat) Exam Narrative Exam Narrative: GEN: Alert and oriented, pleasant and cooperative, gives linear history. No acute distress at rest, though appears tired. HEENT: Head atraumatic. Conjunctiva clear, no icterus. PEERL, EOMI. no rhinorrhea. MMM, OP benign. Neck is supple with no masses or lymphadenopathy, trachea midline LUNGS: diffuse course breath sounds with rhochi of varying intensities in peripheral lung field. Breath sounds audible throughout. Mildly increased effort, on 5L via NC. CV: irregularly irregular with no murmurs, gallops, or rubs. ABD: +BS, soft, NT/ND EXT: no cyanosis, clubbing, or edema. legs not tender to palpation MSK: No joint redness or swelling NEURO: CN 2-12 grossly intact. Normal movement of 4 extremities. Normal speech and coordination SKIN: Somewhat flushed in the face, but no rashs or open wounds. PSYCH: normal mood and affect Results Imaging Chest x-ray: report reviewed (Left lower lobe pneumonia. ) CT scan - chest: report reviewed (IMPRESSION: 1. Three acute subsegmental pulmonary emboli. 2. The right ventricular to left ventricular ratio is 1.0, which is mildly elevated suggesting mild right heart strain. 3. Increased patchy and confluent airspace opacity within the left upper lobe with regions of surrou nding ground-glass opa) Labs Result diagrams: 03/19/22 16:22 03/19/22 16:22 Labs: Laboratory Results - last 24 hr 03/19/22 03/19/22 03/19/22 16:22 16:22 16:22 WBC 13.71 H RBC 4.56 Hgb 14.1 Hct 44.3 MCV 97 H MCH 30.9 MCHC 31.8 L RDW 15.9 H Plt Count 235 MPV 10.0 Immature Gran % 0.3 Neutrophils % 88.3 Lymphocytes % 6.2 Monocytes % 4.7 Eosinophils % 0.1 Basophils % 0.4 Nucleated RBC % 0.0 Absolute Neutrophils 12.11 H Absolute Lymphocytes 0.85 L Absolute Monocytes 0.64 Absolute Eosinophils 0.01 Absolute Basophils 0.05 PT 10.4 INR 1.0 APTT 23.8 Sodium 137 Potassium 4.1 Chloride 96 L Carbon Dioxide 34.2 H Anion Gap 6.8 BUN 17 Creatinine 0.8 Estimated GFR/1.73 m2 >= 60.00 Glucose 124 H Calcium 8.9 Total Bilirubin 0.5 AST 17 ALT 14 Alkaline Phosphatase 110 Troponin I NT-Pro-B Natriuret Pep Total Protein 7.2 Albumin 3.4 COVID-19 Source SARS-CoV-2 (PCR) 03/19/22 03/19/22 03/19/22 16:22 16:22 20:30 WBC RBC Hgb Hct MCV MCH MCHC RDW Plt Count MPV Immature Gran % Neutrophils % Lymphocytes % Monocytes % Eosinophils % Basophils % Nucleated RBC % Absolute Neutrophils Absolute Lymphocytes Absolute Monocytes Absolute Eosinophils Absolute Basophils PT INR APTT Sodium Potassium Chloride Carbon Dioxide Anion Gap BUN Creatinine Estimated GFR/1.73 m2 Glucose Calcium Total Bilirubin AST ALT Alkaline Phosphatase Troponin I < 50 NT-Pro-B Natriuret Pep 3391 H Total Protein Albumin COVID-19 Source Nasal/Nares SARS-CoV-2 (PCR) Negative Last Vital Signs Temp 37.2 C 03/19/22 21:02 Pulse 97 H 03/19/22 21:02 Resp 16 03/19/22 21:02 BP 107/68 03/19/22 21:02 Pulse Ox 90 L 03/19/22 21:02
[2022-03-20] VITALS (9 sets, daily range): BP systolic 105–126; BP diastolic 64–75; PULSE 65–93; RESP 4–23; TEMP 36.6–37.4; O2SAT 91–97
[2022-03-20] MEDS: cefTRIAXone 2 GM/50 ML BAG IVPB ×2 (00:27→23:24)
[2022-03-20] MEDS: DOXYCYCLINE 100 MG in Normal Saline 100 ML IVPB ×3 (00:34→21:31)
[2022-03-20] MEDS: Rivaroxaban 10 MG TABLET 20 MG PO (00:44)
--- NOTE | 2022-03-20 07:00 | DI.CT_ITS ---
Exam(s) CT ABDOMEN PELVIS W EXAM: CT ABDOMEN PELVIS W CLINICAL HISTORY: lung cancer, new hydronephrosis left, adrenal mass TECHNIQUE: Imaging Protocol: Axial computed tomography images with coronal and sagittal reformatted images were created and reviewed CONTRAST MATERIAL: Intravenous: Omnipaque 350 Contrast volume:80 mL Oral: No COMPARISON: CT ABD PELVIS WITH CONTRAST from 03/08/[address] chest PE CTA from 11/09/[address] CHEST PE CTA from 03/19/2022 FINDINGS: ABDOMEN: Lung Bases: There has been no change in appearance of the lung bases compared to the CT scan from the day prior. Liver: Normal density. No discrete mass is identified. There is a simple cyst tiny cyst in the left lobe of the liver. Portal, Superior Mesenteric, and Splenic Veins: Unremarkable. Gallbladder and Biliary Tract: Status post cholecystectomy. Mild dilatation of the bile ducts is not ed. This is likely reflective of the post cholecystectomy state. Pancreas: Normal density, no abnormal calcifications or inflammatory process. Spleen: Normal. Adrenals: There is mild nodularity of the left adrenal gland. This was present on the CT examination from 2018. The right adrenal gland is unremarkable. Kidneys: Normal size, contour and axis. No calculi are seen. There is hydronephrosis on the left wit h a delayed nephrogram. There is a of left renal cysts. There is confluency soft tissue in the left retroperitoneal region measuring approximately 4.3 x 2.0 cm. Appears to encase the left ureter caus ing hydronephrosis. It began just above the level of the aortic bifurcation and extends to the level of the iliac bifurcation. It abuts a portion of the descending colon. Abdominal Aorta: There is a 3.3 cm infrarenal abdominal aortic aneurysm. Extensive atherosclerosis i s present. No acute dissection is identified. Bowel: No obstruction or bowel wall thickening. No evidence of appendicitis. There is a moderate tirso unt of stool throughout the colon. There is colonic diverticulosis, but no evidence of acute diverti culitis. Peritoneal Cavity: There is a small amount of free fluid in the pelvis. No free air. Lymph Nodes: Within normal limits. Bones: Within normal limits for the patient's age. Soft Tissues: Unremarkable. PELVIS: Bladder: Symmetric distention, no gross wall thickening. Reproductive Organs: Status post hysterectomy. Lymph Nodes: Within normal limits. Bones: Within normal limits for the patient's age. IMPRESSION: 1. Pulmonary findings which appears stable compared to the CT scan from the day prior. 2. Nodular thickening of the left adrenal gland without discrete mass. 3. Moderate left hydronephrosis which appears to be caused by compliant soft tissue mass in the left retroperitoneal space. Adenopathy, spasm such as a sarcoma or neoplasm related to the adjacent desce nding colon should be considered. 4. Infrarenal abdominal aortic aneurysm. RADIATION DOSE DELIVERED: 949.48mGy.cm Total DLP DATA REPOSITORY: All CT scans at this facility are submitted to the National Radiology Data Registry (NRDR) Dose Index Registry (DIR) with the [employer] (A[employer]). RADIATION OPTIMIZATION: All CT scans at this facility use at least one of these dose optimization te chniques: automated exposure control; mA and/or kV adjustment per patient size (includes targeted exa ms where dose is matched to clinical indication); or iterative reconstruction.
[2022-03-20] MEDS: Tiotropium/Olodaterol 10 PUFF INHALER 2 PUFF IH (08:26)
--- NOTE | 2022-03-20 08:43 | W.ANESPOSTOP ---
Postoperative Evaluation Date, Time and Location Date Performed: 03/19/22 Time Performed: 13:00 Patient Location: Day Surgery Unit Vital Signs Most Recent Imported Vital Signs: Most Recent Vital Signs Temp Pulse Resp BP Pulse Ox 36.8 C 93 H 20 106/64 91 L 03/20/22 07:25 03/20/22 07:25 03/20/22 07:25 03/20/22 07:25 03/20/22 07:25 Pain Score Most Recent Pain Score: Most Recent Pain Score Pain Level [Left Posterior 4 03/20/22 01:51 Back] Pain Level 0 03/20/22 01:51 Assessment Mental Status: Awake (Alert & Oriented to Patient Baseline) Airway and Respiratory Function: Other Cardiovascular Function: Hemodynamically Stable Hydration Status: Adequately Hydrated Nausea & Vomiting: No Nausea or Vomiting Pain: Pt. Denies Any Pain Peripheral Nerve Block: Patient did not receive a nerve block Postoperative Comments:: Decreased SPO2 while in DSU, neb was ordered, cough/deep breathing/IS was encouraged. Pt states she feels good. DSU RNs discussed with
[2022-03-20] MEDS: Omnipaque 350 MG/ML 100 ML BTL 60 ML IJ (09:51)
--- NOTE | 2022-03-20 10:22 | DI.VRAD_ITS ---
PROCEDURE INFORMATION: Exam: CT Abdomen And Pelvis With Contrast Exam date and time: 03/20/2022 9:44 AM Age: 76 years old Clinical indication: Other: Lung cancer, new hydronephrosis left, adrenal mass TECHNIQUE: Imaging protocol: Computed tomography of the abdomen and pelvis with contrast. Contrast material: OMNIPAQUE 350; Contrast volume: 80 ml; Contrast route: INTRAVENOUS (IV); COMPARISON: US AAA SCREENING 03/31/2015 2:57 PM FINDINGS: Lungs: There is left basilar atelectasis. Pleural spaces: There is a small left pleural effusion. Liver: Normal. No mass. Gallbladder and bile ducts: There are clips in the gallbladder fossa, post cholecystectomy. Pancreas: Normal. Spleen: Normal. No splenomegaly. Adrenal glands: There is nodular thickening of the left adrenal gland to 1.2 cm, with no discrete mass. The right adrenal gland is normal. Kidneys and ureters: There is a 7 mm upper pole right renal cyst. There is moderate left hydronephrosis, with a delayed nephrogram. Stomach and bowel: Unremarkable. No obstruction. No mucosal thickening. Appendix: The appendix is not visualized. Intraperitoneal space: Unremarkable. No free air. No significant fluid collection. Retroperitoneal space: There is confluent soft tissue density in the left retroperitoneal space in the pelvis, approximately where the left common iliac artery divides, measuring 4.3 x 2.0 cm, possibly confluent lymphadenopathy. Vasculature: There is an infrarenal abdominal aortic aneurysm, 3.3 cm in diameter, which does not extend to the iliac arteries. Lymph nodes: As above. A 2.9 x 1.7 cm soft tissue density in the left pelvis may represent the residual left ovary or enlarged lymph node. Urinary bladder: Unremarkable as visualized. Reproductive: The uterus is surgically absent. Bones/joints: Unremarkable. No acute fracture. Soft tissues: Unremarkable. IMPRESSION: 1. Small left pleural effusion. 2. Nodular thickening of the left adrenal gland. 3. Moderate left hydronephrosis. 4. Confluent 4.3 cm soft tissue density in the left retroperitoneal pelvis, possibly confluent lymphadenopathy. 5. 3.3 cm infrarenal abdominal aortic aneurysm. Follow-up imaging in 3 years is recommended. 6. Subcentimeter right renal cyst. No further follow-up is recommended. 7. Post cholecystectomy, hysterectomy. Dictated and Authenticated by: Yunier Grant MD. Ordering:ASHLEY Courtney MD
[2022-03-20] MEDS: Normal Saline 500 ML 30 ML IV (10:23)
--- NOTE | 2022-03-20 13:34 | PDOC.CMIN ---
- If Service Date Differs Date of service: 03/20/22 Time of Service: 13:37 Care Management Initial Assess REASON FOR HOSPITALIZATION:: PE, Pneumonia PAST MEDICAL HISTORY/PAST SURGICAL HISTORY:: All Active Problems. Hydronephrosis (Acute). Pulmonary emboli (Chronic). Pneumonia (Acute). Respiratory failure with hypoxia and hypercapnia (Acute). NSCLC of right lung (Acute). Palliative care patient (Acute). Pulmonary hypertension (Acute). Cor pulmonale (Acute). Weakness of both legs (Acute). Hypoxia (Acute). Requires supplemental oxygen (Acute). Hypoxia (Acute). Shortness of breath (Acute). CHF (congestive heart failure) (Chronic). Hemoptysis (Acute). DVT prophylaxis (Acute). Discharge planning issues (Acute). HTN (hypertension) (Chronic). Atrial fibrillation (Chronic). Smoker (Acute). COPD (chronic obstructive pulmonary disease) (Chronic). Medical History. Acute and chronic respiratory failure ([id number]). Acute exacerbation of chronic obstructive pulmonary disease. Acute exacerbation of congestive heart failure. Acute on chronic respiratory failure with hypoxia and hypercapnia. Acute respiratory acidosis. Acute respiratory failure with hypoxia and hypercapnia. Atrial fibrillation. Chronic respiratory failure with hypoxia and hypercapnia. COPD (chronic obstructive pulmonary disease). HTN (hypertension). Hypercholesteremia. Lung cancer. Lung mass. Pulmonary hypertension. Smoker. Surgical History. S/P appendectomy. S/P cholecystectomy. S/P hysterectomy PREVIOUS FUNCTIONAL STATUS/SOCIAL/FAMILY SUPPORTS:: Siomara resides alone in [facility]. She is independent at baseline with ADLS and transports herself. Her grandson and granddaughter live closeby and are supportive of her healthcare needs. CURRENT FUNCTIONAL STATUS:: Siomara was sitting up in her chair when CM met with her. She stated that she is feeling a little better today. She reported that she is not on O2 at home, and is hoping to wean off of it prior to discharge. She stated that although she lives alone, she has a lot of support from family who live nearby. Her grand daughter visits her at home every day. She reports that she is still very independent, drives and completes all ADL's independently. She does not anticipate the need for services upon discharge. CM will continue to follow. ADVANCE DIRECTIVES:: On file at [facility]: agent Bulmaro Quinones. Shakira and Hayden Quinones listed as alternates. Has patient been provided with info about the portal/API?: Yes Did the patient sign up for the portal?: No CODE STATUS:: Full Code INSURANCE COVERAGE / FINANCIAL ISSUES:: AARP/[id number].HLTH Mc[employer] Replacement CURRENT HOME/COMMUNITY SERVICES/EQUIPMENT:: None PRIMARY CARE PHYSICIAN:: Sherwin Ceja POTENTIAL DISCHARGE NEEDS:: Discussion re: re-admissions, potential for increased services. PATIENT/FAMILY EDUCATION NEEDS:: Review discharge instructions, discuss Ask Me Three. ANTICIPATED BARRIERS TO DISCHARGE:: None identified. TRANSPORTATION:: Via private vehicle with family. PLAN:: Siomara will discharge home when medically cleared by provider. She will transport via private vehicle with family. She will follow up with her community providers and discharge plan of care as prescribed. CM will continue to follow.
--- NOTE | 2022-03-20 15:33 | PGE_ITS ---
Date of Service Date of service: 03/20/22 Time of Service: 15:33 Assessment and Plan Assessment and plan (1) Pneumonia: Status: Acute Assessment and plan: Bronchoscopy findings consistent with pneumonia, also seen more clearly on imaging. Cont. ceftriaxone and doxycycline. BAL performed but d/t small amount of fluid collected, no culture was able to be obtained. (2) Pulmonary emboli: Status: Chronic Assessment and plan: New pulmonary emboli, with possible strain on CT scan. We are resuming rivaroxaban therapy (on this rather than apixaban as she is able to afford it as outpatient). Scant amount of blood-tinged sputum; no preethi hemopysis since admission. Echo to assess for heart strain. (3) Atrial fibrillation: Status: Chronic Assessment and plan: Rate control with diltiazam. She is resuming anticoagulation. Unfortunately there is a possible interaction of these two meds that can increase rivaroxaban. We could consider transition to beta [facility] senior living. Qualifiers: Atrial fibrillation type: permanent Qualified Code(s): I48.2 - Chronic atrial fibrillation (4) Smoker: Status: Acute Assessment and plan: Contemplative. Can use NRT prn. encouraged. (5) COPD (chronic obstructive pulmonary disease): Status: Chronic Assessment and plan: Continue outpatient inhalers (she didn't like Trelegy but is using stiolto). (6) NSCLC of right lung: Status: Acute Assessment and plan: The had been quiescent, but some new concerning findings on CT in February. Cytology was sent from BAL. PET pending, but with hydronephrosis. CT abd/pelvis: Moderate left hydronephrosis which appears to be caused by compliant soft tissue mass in the left retroperitoneal space.? Adenopathy, spasm such as a sarcoma or neoplasm related to the adjacent descending colon should be considered. (7) DVT prophylaxis: Status: Acute Assessment and plan: on rivaroxaban (8) Cor pulmonale: Status: Acute Assessment and plan: As above no signs of CHF now on exam. Monitor. (9) Hydronephrosis: Status: Acute Assessment and plan: See above. (10) Discharge planning issues: Status: Acute Assessment and plan: STable on medical floor. SHe is a palliative patient so will consult. Subjective Subjective Patient reports: no new complaints, tolerating a regular diet (Poor appetite) and shortness of breath; denies nausea or vomiting Interval history since last seen: Intermittent cough with small amount of sputum; blood tinged at times. Exam Narrative Exam Narrative: Sitting in chair with NC in place. Granddaughter is present. Const General: cooperative and no acute distress Nutritional Appearance: thin Orientation: alert and oriented x3 HENMT Head: normal to inspection and normocephalic Eyes General: appearance normal, both eyes and all related structures Sclera: sclerae normal Resp Effort & Inspection: normal respiratory effort Auscultation: diminished lung sounds and rhonchi Cardio Rhythm: abnormal rhythm irregularly irregular Extrem General: no pedal edema and no calf tenderness Psych Appearance: grossly normal Mental Status: mental status grossly normal Speech and Movement: speech clear Mood: congruent mood Affect: normal affect Objective Last Vital Signs Temp 36.8 C 03/20/22 07:25 Pulse 93 H 03/20/22 07:25 Resp 20 03/20/22 07:25 BP 106/64 03/20/22 07:25 Pulse Ox 91 L 03/20/22 07:25 Laboratory Results - last 24 hr 03/19/22 03/19/22 03/19/22 16:22 16:22 16:22 WBC 13.71 H RBC 4.56 Hgb 14.1 Hct 44.3 MCV 97 H MCH 30.9 MCHC 31.8 L RDW 15.9 H Plt Count 235 MPV 10.0 Immature Gran % 0.3 Neutrophils % 88.3 Lymphocytes % 6.2 Monocytes % 4.7 Eosinophils % 0.1 Basophils % 0.4 Nucleated RBC % 0.0 Absolute Neutrophils 12.11 H Absolute Lymphocytes 0.85 L Absolute Monocytes 0.64 Absolute Eosinophils 0.01 Absolute Basophils 0.05 PT 10.4 INR 1.0 APTT 23.8 Sodium 137 Potassium 4.1 Chloride 96 L Carbon Dioxide 34.2 H Anion Gap 6.8 BUN 17 Creatinine 0.8 Estimated GFR/1.73 m2 >= 60.00 Glucose 124 H Calcium 8.9 Total Bilirubin 0.5 AST 17 ALT 14 Alkaline Phosphatase 110 Troponin I NT-Pro-B Natriuret Pep Total Protein 7.2 Albumin 3.4 COVID-19 Source SARS-CoV-2 (PCR) 03/19/22 03/19/22 03/19/22 16:22 16:22 20:30 WBC RBC Hgb Hct MCV MCH MCHC RDW Plt Count MPV Immature Gran % Neutrophils % Lymphocytes % Monocytes % Eosinophils % Basophils % Nucleated RBC % Absolute Neutrophils Absolute Lymphocytes Absolute Monocytes Absolute Eosinophils Absolute Basophils PT INR APTT Sodium Potassium Chloride Carbon Dioxide Anion Gap BUN Creatinine Estimated GFR/1.73 m2 Glucose Calcium Total Bilirubin AST ALT Alkaline Phosphatase Troponin I < 50 NT-Pro-B Natriuret Pep 3391 H Total Protein Albumin COVID-19 Source Nasal/Nares SARS-CoV-2 (PCR) Negative
[2022-03-20] MEDS: Atorvastatin 40 MG TAB 80 MG PO (19:42)
[2022-03-20] MEDS: Albuterol/Ipratropium 3 ML UPD VIAL UPD (19:43)
[2022-03-20] MEDS: Normal Saline Flush 10 ML SYR IVP ×2 (19:43→21:31)
[2022-03-20] MEDS: dilTIAZem CD 120 MG CAPCR PO (21:30)
[2022-03-21] VITALS (10 sets, daily range): BP systolic 104–139; BP diastolic 60–78; PULSE 75–89; RESP 1–24; TEMP 36.4–37.1; O2SAT 90–96
[2022-03-21] MEDS: Albuterol/Ipratropium 3 ML UPD VIAL UPD ×3 (00:45→21:39)
[2022-03-21 06:49] LABS: Abs Immature Grans 0.05 10^3/uL (0.0-0.06); Absolute Basophil Count 0.02 10^3/uL (0.0-0.2); Absolute Eosinophil Count 0.01 10^3/uL (0.0-0.7); Absolute Monocyte Count 0.93 10^3/uL (0.1-0.8); Absolute Neutrophil Count 8.48 10^3/uL (1.2-6.7); Basophils % 0.2; Eosinophils % 0.1; HCT 37.6 % (36.0-46.0); HGB 11.9 g/dL (11.2-15.7); Immature Grans % 0.5; Lymphocytes % 8.7; MCH 30.8 pg (27.0-33.0); MCHC 31.6 % (32.0-36.0); MCV 97 fL (80-95); MPV 10.8 fL (8.0-11.0); Neutrophils % 81.5; Platelet Count 160 10^3/uL (130-400); RBC 3.86 10^6/uL (3.93-5.22); RDW 15.7 % (11.7-14.6); WBC 10.39 10^3/uL (4.4-10.8)
[2022-03-21] MEDS: Tiotropium/Olodaterol 10 PUFF INHALER 2 PUFF IH (07:41)
[2022-03-21] MEDS: Doxycycline Hyclate 100 MG CAP PO ×2 (10:11→20:15)
--- NOTE | 2022-03-21 14:15 | W.PM.PROGNOT ---
Date of Service Date of service: 03/21/22 Time of Service: 14:15 Assessment and Plan Assessment and plan (1) Pneumonia: Status: Acute Assessment and plan: Bronchoscopy findings consistent with pneumonia, also seen more clearly on imaging. Cont. ceftriaxone and doxycycline. BAL performed but d/t small amount of fluid collected, no culture was able to be obtained. Improving resp status. Still requiring supplemental O2 but decreased need from 3L to 2L. (2) Pulmonary emboli: Status: Chronic Assessment and plan: New pulmonary emboli, with possible strain on CT scan. Resumed rivaroxaban therapy (on this rather than apixaban as she is able to afford it as outpatient). Scant amount of blood-tinged sputum; no preethi hemopysis since admission. Echo to assess for heart strain. (3) Atrial fibrillation: Status: Chronic Assessment and plan: Rate control with diltiazam. She has resumed anticoagulation. Unfortunately there is a possible interaction of these two meds that can increase rivaroxaban. 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 Qualifiers: Atrial fibrillation type: permanent Qualified Code(s): I48.2 - Chronic atrial fibrillation (4) Smoker: Status: Acute Assessment and plan: Contemplative. Can use NRT prn. encouraged. (5) COPD (chronic obstructive pulmonary disease): Status: Chronic Assessment and plan: Continue outpatient inhalers (she didn't like Trelegy but is using stiolto). (6) NSCLC of right lung: Status: Acute Assessment and plan: The had been quiescent, but some new concerning findings on CT in February. Cytology was sent from BAL. Outpt PET scan per recent pulmonary note; in 2 mos from time of that visit in February. CT abd/pelvis: Moderate left hydronephrosis which appears to be caused by soft tissue mass in the left retroperitoneal space.? Adenopathy, spasm such as a sarcoma or neoplasm related to the adjacent descending colon should be considered. (7) DVT prophylaxis: Status: Acute Assessment and plan: on rivaroxaban (8) Cor pulmonale: Status: Acute Assessment and plan: As above no signs of CHF now on exam. Monitor. (9) Hydronephrosis: Status: Acute Assessment and plan: See above. (10) Discharge planning issues: Status: Acute Assessment and plan: Stable on medical floor. SHe is a palliative patient so will consult. Subjective Subjective Patient reports: feels better, tolerating a regular diet, shortness of breath (with activity) and afebrile; denies nausea or vomiting Interval history since last seen: No longer experiencing left sided pleuritic pain. Cough improved. Scant sputum at times. Exam Narrative Exam Narrative: Lying in bed. Converts to a sitting position on side of bed readily w/o difficulty. Const General: cooperative and no acute distress Nutritional Appearance: thin Orientation: alert and oriented x3 HENMT Head: normal to inspection and normocephalic Eyes General: appearance normal, both eyes and all related structures Sclera: sclerae normal Resp Effort & Inspection: normal respiratory effort Auscultation: clear to auscultation bilaterally and diminished lung sounds Cardio Rhythm: abnormal rhythm irregularly irregular Extrem General: no pedal edema and no calf tenderness Psych Appearance: grossly normal Mental Status: mental status grossly normal Speech and Movement: speech clear Mood: congruent mood Affect: normal affect Objective Last Vital Signs Temp 37.1 C 03/21/22 12:05 Pulse 88 03/21/22 12:05 Resp 20 03/21/22 12:05 BP 123/60 03/21/22 12:05 Pulse Ox 92 03/21/22 13:16 Laboratory Results - last 24 hr 03/21/22 06:24 WBC 10.39 RBC 3.86 L Hgb 11.9 D Hct 37.6 MCV 97 H MCH 30.8 MCHC 31.6 L RDW 15.7 H Plt Count 160 MPV 10.8 Immature Gran % 0.5 Neutrophils % 81.5 Lymphocytes % 8.7 Monocytes % 9.0 Eosinophils % 0.1 Basophils % 0.2 Nucleated RBC % 0.0 Absolute Neutrophils 8.48 H Absolute Lymphocytes 0.90 L Absolute Monocytes 0.93 H Absolute Eosinophils 0.01 Absolute Basophils 0.02
[2022-03-21] MEDS: Rivaroxaban 10 MG TABLET 20 MG PO (16:53)
[2022-03-21] MEDS: Normal Saline Flush 10 ML SYR IVP (20:15)
[2022-03-21] MEDS: Atorvastatin 40 MG TAB 80 MG PO (20:15)
[2022-03-21] MEDS: dilTIAZem CD 120 MG CAPCR PO (21:32)
[2022-03-21] MEDS: cefTRIAXone 2 GM/50 ML BAG IVPB (23:18)
[2022-03-21] MEDS: Normal Saline 500 ML 30 ML IV (23:19)
[2022-03-22] MEDS: Tiotropium/Olodaterol 10 PUFF INHALER 2 PUFF IH (07:53)
--- NOTE | 2022-03-22 08:00 | DI.US_ITS ---
APPROVED REPORT EXAM: Comprehensive 2D, Doppler, and color-flow Echocardiogram Patient Location: In-Patient Room/Bed: 214 Passenger Service Agent: Shaylee Lorenzana RDCS (AE) Indications: Pulmonary Embolism Other Information Study Quality: Adequate Conclusion Normal left ventricular chamber size and wall thickness. Estimated ejection fraction is 60%. Wall m otion is normal Normal right ventricular size and systolic function Both atria are moderately dilated The aortic valve is trileaflet and mildly sclerotic without stenosis or regurgitation Mild mitral annular calcification. Mild to moderate mitral regurgitation Normal tricuspid valve with mild to moderate regurgitation. Estimated right ventricular systolic pre ssure is 58 mmHg, severe pulmonary hypertension Wall motion Left Ventricle The left ventricle is normal size. The left ventricular systolic function is normal. The left ventric ular ejection fraction is within the normal range. There is normal left ventricular wall thickness. T here is normal LV segmental wall motion. There is no ventricular septal defect visualized. LVEF is 60 %. Right Ventricle The right ventricle is normal size. The right ventricular systolic function is normal. The RVSP is 58 .2mmHg. Atria Left atrium is moderately dilated. Right atrium is moderately dilated. The interatrial septum is inta ct with no evidence for an atrial septal defect. Aortic Valve The aortic valve is mildly sclerotic Aortic valve is trileaflet. There is no aortic valvular stenosis . No aortic regurgitation is present. Mitral Valve Mild mitral annular calcification. No evidence of mitral valve stenosis. Mild to moderate mitral regu rgitation. Tricuspid Valve The tricuspid valve is normal in structure. There is no tricuspid valve stenosis. Mild to moderate tr icuspid regurgitation. Pulmonic Valve The pulmonary valve is normal in structure. There is no pulmonic valvular stenosis. Moderate pulmonic regurgitation. Great Vessels The aortic root is normal in size. The ascending aorta is normal in size. Aortic arch is normal in ca liber. IVC is normal in size and collapses >50% with inspiration. Pericardium There is no pericardial effusion. 2D Dimensions IVSD d PLAX 1.04 cm F: 0.6-1.0 LV Vol A2C d MOD 101.0 mL LVPW d PLAX 1.04 cm F: 0.6 - 1.0 LV Vol A4C d MOD 64.1 mL LVID d PLAX 4.62 cm F: 3.8 - 5.2 LA vol/ BSA A2C s A-L 66.5 mL/m2 LVDs 3.15 cm F: 2.2 - 3.5 LA vol/ BSA A4C s A-L 47.2 mL/m2 Ao Root d 2.76 cm F: 2.7 - 3.3 LA Vol/ BSA Biplane s A-L 56.8 mL/m2 RA Area A4C 22.58 cm2 LA Area A4C s MOD 24.09 cm2 RA Vol/ BSA A4C s A-L 47.0 mL/m2 LA Area A2C s MOD 28.19 cm2 Ao Asc Diam d 3.19 cm F: 2.3 - 3.1 LV EF A4C MOD 60.4 % LV EF Teichholz 59.1 % LV EF A2C MOD 59.6 % LVEF (Lanier's) 59.66 % F: 54 - 74 LV EF Biplane MOD 59.7 % LV Volume 67.65 mL F: 46 - 106 SV 49.42 mL LV Volume Index 43.08 mL/m2 F: 29 - 61 SV Index 31.31 mL/m2 LV Vol Biplane MOD 82.8 mL FS 31.25 % M-Mode TAPSE 1.52 cm (M/F) >1.7 LV Diastology MV E' medial 0.109 (>0.07 m/s) MV E Vmax 1.31 (0.4-1.3 m/s) LV E/e MED 12.05 (<14) MV E' lateral 0.110 (>0.1 m/s) LV E/e LAT 11.90 (<14) MV E/E' medial 12.07 MV E/E' lateral 11.94 Aortic Valve LVOT Area 2.97 cm2 AoV Area Vmax 2.50 cm2 LVOT Vmax 1.09 m/s AoV Area/ BSA (Vmax) 1.59 cm2/m2 LVOT Mean [place]. 0.63 m/s TAMMIE Mean [place]. 2.10 cm2 LVOT Peak Grad 4.8 mmHg TAMMIE Mean [place]. Index 1.33 cm2/m2 LVOT Mean Grad 2.0 mmHg LVOT VTI 0.193 m LVOT Diam s 1.90 cm AoV Vmax 1.30 m/s Velocity Ratio 0.83 AoV Mean [place]. 0.89 m/s AoV Peak Grad 6.7 mmHg LVOT SV 57.48 mL AoV Mean Grad 3.5 mmHg AoV VTI 0.259 m AoV Area VTI 2.22 cm2 AoV Area/ BSA (VTI) 1.41 cm/m2 Mitral Valve MV DT 91 (160-240 msec) MR Vmax 5.11 m/s MV PHT 26 msec MR VTI 1.617 m MV Area PHT 8.37 cm2 MR Peak Grad 104.4 mmHg MV VTI 0.305 m MR Mean Grad 75.5 mmHg MV Area VTI 1.89 (4.0-6.0 cm2) Pulmonary Valve PV Vmax 0.99 (0.5-1.5 m/s) RVOT Peak Gr. 1.47 mmHg PV Peak Grad 3.9 mmHg RVOT Mean Gr. 0.65 mmHg PV Mean Grad 1.7 mmHg RVOT VTI 0.102 m PV VTI 0.164 m RVOT Vmax 0.61 m/s Tricuspid Valve TR Peak Grad 55.2 mmHg TR Vmax 3.72 m/s RA Pressure 3.00 mmHg RVSP (TR) 58.2 mmHg
[2022-03-22 08:49] VITALS: BP 113/68; PULSE 87; RESP 20; TEMP 36.6; O2SAT 92
--- NOTE | 2022-03-22 08:54 | PUCON_ITS ---
General Date Of Service Date of service: 03/22/22 Time of Service: 08:54 Reason for Consult: PE, COPD, s/p bronch, NSCLC Assessment and Plan Assessment and plan (1) Pulmonary emboli: Status: Chronic (2) Pneumonia: Status: Acute (3) Respiratory failure with hypoxia and hypercapnia: Status: Acute (4) NSCLC of right lung: Status: Acute (5) Pulmonary hypertension: Status: Acute (6) Hemoptysis: Status: Acute (7) COPD (chronic obstructive pulmonary disease): Status: Chronic Assessment and plan: This is a 76 yo woman well known to me with COPD, active smoking, NSCLC (thought to be in remission) and recently diagnosed pneumonia who is admitted for subsegmental PE's. She is improving with therapies but is still requiring oxygen. She has been restarted on Xarelto and still does have some blood streaked sputum but not preethi hemoptysis. She should continue on the Xarelto. She was started on ceftriaxone and doxy when admitted (I had sent a Rx for Augmentin after the bronchoscopy). Unfortunately a soft tissue density was found in the left retroperitoneal pelvis that will need further assessment. VIRGILIO pneumonia - can give a total of 10 days of antibiotics - can switch to Augmentin on discharge - await BAL results - minimal sample collected COPD - continue Stiolto - prn albuterol Hypoxic and hypercapnic respiratory failure - refused Trilogy in past - on O2 now - would recommend sending home with O2 and I will reassess in the future NSCLC - will order for a PET scan to be done given soft tissue density seen Subsegmental PE - continue Xarelto - constinue to monitor hemoptysis - echo TBD today History of Present Illness Narrative: This is a 76 yo woman with COPD (still smoking), chronic hypercapnic respiratory failure (refuses Trilogy) and NSCLC thought to be in remission who is admitted for PE. I completed a bronchoscopy on her to assess a new area of nodular infiltrates and after returning home developed sharp left sided chest pains and hypoxis (to 70's). I instructed her to go to the ED. My concern was for a PNX given her story but she instead was found to have PE. I held her Xarelto in the setting of hemoptysis that was worsening and unfortunately she was found to have subsegmental PE's. She also had her abdomen scanned which found a soft tissue density that seemed to be causing hydronephrosis. Today she is feeling well and anxious to go home. She is planned for an echo this morning. She is still requiring oxygen and so I did discuss this with her (she has refused oxygen therapy in the past). She does not want home O2, but I told her this may be just for a month or two and then we could potentially get rid of it. She seemed agreeable to this. She continues to cough up white to yellow sputum with blood streaking (but less than she previously was). Review of Systems All systems reviewed & are unremarkable except as noted in HPI and below PFSH All Active Problems (Updated 03/19/22 @ 23:26 by Sherwin Ceja) Hydronephrosis (Acute) Pulmonary emboli (Chronic) Pneumonia (Acute) Respiratory failure with hypoxia and hypercapnia (Acute) NSCLC of right lung (Acute) Palliative care patient (Acute) Pulmonary hypertension (Acute) Cor pulmonale (Acute) Weakness of both legs (Acute) Hypoxia (Acute) Requires supplemental oxygen (Acute) Hypoxia (Acute) Shortness of breath (Acute) CHF (congestive heart failure) (Chronic) Hemoptysis (Acute) DVT prophylaxis (Acute) Discharge planning issues (Acute) HTN (hypertension) (Chronic) Atrial fibrillation (Chronic) Smoker (Acute) COPD (chronic obstructive pulmonary disease) (Chronic) Medical History Acute and chronic respiratory failure ([id number]) Acute exacerbation of chronic obstructive pulmonary disease Acute exacerbation of congestive heart failure Acute on chronic respiratory failure with hypoxia and hypercapnia Acute respiratory acidosis Acute respiratory failure with hypoxia and hypercapnia Atrial fibrillation Chronic respiratory failure with hypoxia and hypercapnia COPD (chronic obstructive pulmonary disease) HTN (hypertension) Hypercholesteremia Lung cancer Lung mass Pulmonary hypertension Smoker Surgical History S/P appendectomy S/P cholecystectomy S/P hysterectomy Family History (Updated 03/19/22 @ 23:17 by Sherwin Ceja) Father Hemochromatosis Cirrhosis due to hemochromatosis Diabetes Daughter Heart disease [place] in 40s Social History (Updated 03/19/22 @ 23:16 by Sherwin Ceja) Smoking/Tobacco Use Status: Current every day Tobacco Type: cigarettes Years smoked: 50 Quit status: considering quitting Counseling given: patient declined Smoking risk assessment performed?: Yes Alcohol Intake: never Drug use: Never Substance use type: does not use What type of physical activity do you participate in: none Do you feel safe at home: Yes Do you feel safe in your relationship?: Yes Additional Social history: lives alone, but a lot of family in the area. of lung cancer Visit Medication and Allergies Active Medications Generic Name Dose Route Start Last Admin Trade Name Freq PRN Reason Stop Dose Admin Acetaminophen 325 - 650 mg 03/19/22 22:18 Acetaminophen 325 Mg Tab PO Q4H PRN PRN Albuterol Sulfate 2 puff 03/19/22 22:24 Albuterol Hfa 8 Gm 60 Puff Inh IH QID PRN PRN Albuterol/Ipratropium 3 ml 03/19/22 22:24 03/21/22 21:39 Albuterol/Ipratropium 3 Ml Upd Vial UPD 3 ml Q6H PRN PRN Administration shortness of breath or wheezing Atorvastatin Calcium 80 mg 03/20/22 20:00 03/21/22 20:15 Atorvastatin 40 Mg Tab PO 80 mg QPM MAURA Administration Device 1 each 03/19/22 23:00 Inhaler, Assist Device MC DIRECTED MAURA Diltiazem HCl 120 mg 03/20/22 22:00 03/21/22 21:32 Diltiazem Cd 120 Mg Capcr PO 120 mg HS MAURA Administration Dimethicone/Zinc Oxide 0 gm 03/19/22 22:18 Curt Protect Cream 142 Gm Tube TP PRN PRN Doxycycline Hyclate 100 mg 03/21/22 09:20 03/21/22 20:15 Doxycycline Hyclate 100 Mg Cap PO 100 mg BID MAURA Administration Sodium Chloride 500 mls @ 0 mls/hr 03/19/22 19:18 03/21/22 23:50 Saline 500ml Bag IV 0 mls/hr PRN PRN Infusion As Directed Ceftriaxone Sodium/Dextrose 2 gm in 50 mls @ 100 mls/hr 03/20/22 22:00 03/21/22 23:50 Rocephin IVPB Infused Q24H MAURA Infusion IV Miscellaneous Supplies 1 each 03/19/22 19:30 Iv Access IV DIRECTED MAURA Rivaroxaban 20 mg 03/21/22 17:00 03/21/22 16:53 Rivaroxaban 10 Mg Tablet PO 20 mg DAILY@1700 MAURA Administration Sodium Chloride 250 ml 03/19/22 18:15 03/20/22 09:45 Normal Saline 250 Ml Bag IJ 50 ml DIRECTED MAURA Administration Sodium Chloride 0 ml 03/19/22 19:18 03/21/22 20:15 Normal Saline Flush 10 Ml Syr IVP 10 ml PRN PRN Administration Tiotropium [place]/Olodaterol 2 puff 03/20/22 08:30 03/22/22 07:53 Tiotropium/Olodaterol 10 Puff Inhaler IH 2 puffs DAILY MAURA Administration Allergies No Known Allergies Allergy (Unverified 03/19/22 16:10) Exam Narrative Exam Narrative: Gen: NAD, normal respiratory effort, well-nourished HENT: PERRL Chest: No respiratory distress, normal appearance of chest, diffuse wet crackles that clear and migrate with cough, no wheezes, normal inspiratory effort Heart: regular rate and rhythym, no murmurs, rubs or gallops Abdomen: Non-distended, soft, non tender Extremities: No clubbing, edema, cyanosis, rashes Neuro: AAOx3 , non focal Psych: cooperative, appropriate mental affect Results Last Vital Signs Temp 36.6 C 03/22/22 08:49 Pulse 87 03/22/22 08:49 Resp 20 03/22/22 08:49 BP 113/68 03/22/22 08:49 Pulse Ox 92 03/22/22 08:49 Labs Result diagrams: 03/21/22 06:24 03/19/22 16:[address] scan report/results: report reviewed CT scan - chest: report reviewed and image reviewed
[2022-03-22] MEDS: Doxycycline Hyclate 100 MG CAP PO (08:59)
--- NOTE | 2022-03-22 09:28 | W.PM.DS.N ---
Date of service: 03/22/22 Time of Service: 09:28 DS: Diagnosis Discharge Diagnosis (1) Pneumonia: Status: Acute (2) Pulmonary emboli: Status: Chronic (3) Atrial fibrillation: Status: Chronic (4) Smoker: Status: Acute (5) COPD (chronic obstructive pulmonary disease): Status: Chronic (6) NSCLC of right lung: Status: Acute (7) DVT prophylaxis: Status: Acute (8) Cor pulmonale: Status: Acute (9) Hydronephrosis: Status: Acute (10) Discharge planning issues: Status: Acute Discharge Plan Disposition Patient Disposition: HOME Condition: Fair Discharge Details Reason For Visit: PE, Pneumonia Admit Date/Time: 03/19/22 19:18 Admit Provider: Sherwin Ceja Attending Provider: Sherwin Ceja Primary Care Provider: Sherwin Ceja [facility] Hospital Course: This is a 76 yo F with COPD, smoker, NSC lung cancer, and history of HFpEF with cor pulmonale, and Afib who had a diagnostic bronchoscopy with bronchioaviolar lavage the morning of admission with Dr. Newton.? She returned to the hospital in the afternoon with new left sided chest pain and worse shortness of breath and O2 saturations in the mid 70s at home.? She felt okay immediately after her bronchoscopy, was hungry and went home.? While at home developed left sided lower chest to flank pain that radiated up to the left shoulder.? It is associated with some shortness of breath.? No dizziness, fever, diaphoresis, nausea, or syncope.? She does have some blood in sputum, but this has been chronic.? Bronchoscopy was done to evaluated new infiltrates seen on 02/26/22 that were not present on imaging 08/2021.? She was felt too high risk for transbronchial biopsy but had bronchioaviolar lavage.? Findings were consistent with infection and cytology and cultures were sent.? Dr. Newton prescribed Augmentin but the patient had not picked it up. ED evaluation showed an elevated WBC count of 13. CTA chest showed bilateral subsegmental pulmonary emboli and possible right heart strain. Of note, she had been off her rivaroxaban that she takes for chronic atrial fibrillation since her 03/04/[address] Newton, due to concern of hemoptysis and pending bronchoscopy. ? Rocephin and doxycycline initiated. She was started back on her Rivaroxaban. On day of discharge her BAL culture results were available and showed strep pneumoniae resistant to ceftriaxone; susceptible to penicillin. She continued to require supplemental O2 and will d/c with home O2. A PET scan will be arranged by Dr Newton to evaluate for concerns of metastatic cancer; findings of hydronephrosis that appears to be related to a soft density noted on imaging. Echocardiogram performed on day of discharge; result pending at the time. Follow up with PCP in 1-2 weeks. Follow up with Dr Newton as per her recommendation. Home Meds and New Rx's Prescriptions: New doxycycline hyclate 100 mg Capsule 100 mg PO BID Qty: 5 0RF amoxicillin-pot clavulanate 875-125 mg tablet 1 tab PO BID Qty: 10 0RF Rx Instructions: First dose the night of 03/22/22 guaifenesin 600 mg tablet extended release 12hr 600 mg PO BID Qty: 30 0RF Continued Xarelto 20 mg tablet 20 mg PO QPM Qty: 30 11RF Rx Instructions: must administer with evening meal diltiazem HCl 120 mg capsule,extended release 24hr 120 mg PO HS atorvastatin [Lipitor] 80 mg Tablet 80 mg PO QPM albuterol sulfate [ProAir HFA] 90 mcg/actuation Hfa Aerosol Inhaler 2 puff INHALATION QID PRN ipratropium-albuterol 0.5 mg-3 mg(2.5 mg base)/3 mL Solution For Nebulization 3 ml UPD Q6H PRN PRN (Reason: shortness of breath or wheezing) Qty: 180 0RF Inhaler, Assist Devices [Pocket Chamber] 1 ea miscellaneous DIRECTED Qty: 0 0RF Stiolto Respimat 2.5-2.5 mcg/actuation mist 2 spray INHALATION DAILY Label Comments: Inhale 2 puff as directed once a day Discharge Instructions Instructions: Community Acquired Pneumonia (DC) Stand Alone Forms: Nursing Discharge Form Referrals: Leigha Newton MD [ [facility] STAFF PHYSICIAN] - 04/16/22 2:00 pm Sherwin Ceja [Primary Care Provider] - 03/29/22 1:30 pm Activity:: Activity as Tolerated Equipment/Supplies:: Oxygen (L/min Below) Diet:: Resume usual home diet Discharge Orders Discharge Orders: Discharge Order (Routine); Ordered 03/22/22 Ordered By: Maninder Haskins DS: Summary Time Spent with Patient providing and/or coordinating discharge services: Greater than 30 minutes Status at Discharge Functional status at discharge: independent ambulation Overall status at discharge: patient is progressing back to baseline Mental Status: mental status grossly normal Speech and Movement: speech clear Mood: congruent mood Affect: normal affect Exam Narrative Exam Narrative: Lying in bed. Converts to a sitting position on side of bed readily w/o difficulty. Const General: cooperative and no acute distress Nutritional Appearance: thin Orientation: alert and oriented x3 HENMT Head: normal to inspection and normocephalic Eyes General: appearance normal, both eyes and all related structures Sclera: sclerae normal Resp Effort & Inspection: normal respiratory effort Auscultation: diminished lung sounds and rales (lessen with cough) Cardio Rhythm: abnormal rhythm irregularly irregular Extrem General: no pedal edema and no calf tenderness Psych Appearance: grossly normal Mental Status: mental status grossly normal Speech and Movement: speech clear Mood: congruent mood Affect: normal affect DS: Data Vitals/I&O Vitals and I&O: Vital Signs Temperature 36.6 C 03/22/22 08:49 Temperature Source Tympanic 03/22/22 08:49 Pulse 87 03/22/22 08:49 Pulse Rhythm Irregular 03/22/22 09:16 Pulse 84 03/19/22 20:16 Respiratory Rate 20 03/22/22 08:49 Respiratory Effort 03/22/22 09:16 Respiratory Depth Normal 03/22/22 09:16 Respiratory Pattern Normal 03/22/22 09:16 Blood Pressure 113/68 03/22/22 08:49 Blood Pressure Mean 52 03/19/22 20:16 Blood Pressure Position Sitting 03/19/22 15:58 Pulse Oximetry 92 03/22/22 08:49 Oxygen Delivery Method Nasal Cannula 03/22/22 08:49 Oxygen Flow Rate 2 03/22/22 08:49 Pain Level 0 03/22/22 08:49 Comment 03/21/22 13:16 Intake & Output 03/21/22 03/21/22 03/22/22 11:59 23:59 11:59 Intake Total 540 / 1774.5 1234.5 / 1774.5 Output Total 1050 / 2450 1400 / 2450 500 / 500 Balance -510 / -675.5 -165.5 / -675.5 -500 / -500 Weight 56.4 kg Intake: IV 50 / 554.5 504.5 / 554.5 Oral 490 / 1220 730 / 1220 Output: Urine 1050 / 2450 1400 / 2450 500 / 500 Other: Urine Color Yellow Yellow Dark Jennifer Urine Appearance Clear Clear Clear Urine Odor Normal Normal Comment two voids. Voiding Methods Toilet Toilet Toilet PFS All Active Problems Hydronephrosis (Acute) Pulmonary emboli (Chronic) Pneumonia (Acute) Respiratory failure with hypoxia and hypercapnia (Acute) NSCLC of right lung (Acute) Palliative care patient (Acute) Pulmonary hypertension (Acute) Cor pulmonale (Acute) Weakness of both legs (Acute) Hypoxia (Acute) Requires supplemental oxygen (Acute) Hypoxia (Acute) Shortness of breath (Acute) CHF (congestive heart failure) (Chronic) Hemoptysis (Acute) DVT prophylaxis (Acute) Discharge planning issues (Acute) HTN (hypertension) (Chronic) Atrial fibrillation (Chronic) Smoker (Acute) COPD (chronic obstructive pulmonary disease) (Chronic) Medical History Acute and chronic respiratory failure ([id number]) Acute exacerbation of chronic obstructive pulmonary disease Acute exacerbation of congestive heart failure Acute on chronic respiratory failure with hypoxia and hypercapnia Acute respiratory acidosis Acute respiratory failure with hypoxia and hypercapnia Atrial fibrillation Chronic respiratory failure with hypoxia and hypercapnia COPD (chronic obstructive pulmonary disease) HTN (hypertension) Hypercholesteremia Lung cancer Lung mass Pulmonary hypertension Smoker Surgical History S/P appendectomy S/P cholecystectomy S/P hysterectomy Family History Father Hemochromatosis Cirrhosis due to hemochromatosis Diabetes Daughter Heart disease DC in 40s Social History Smoking/Tobacco Use Status: Current every day Tobacco Type: cigarettes Years smoked: 50 Quit status: considering quitting Counseling given: patient declined Smoking risk assessment performed?: Yes Alcohol Intake: never Drug use: Never Substance use type: does not use What type of physical activity do you participate in: none Do you feel safe at home: Yes Do you feel safe in your relationship?: Yes Additional Social history: lives alone, but a lot of family in the area. of lung cancer
--- NOTE | 2022-03-22 09:46 | RESPIRATORY ---
Respiratory Therapist found patient on room air with an SpO2 of 72%. Patient was placed back on 2lpm of oxygen and was able to recover to 90% after two minutes.
[2022-03-22] MEDS: Amoxicillin 875/Clav. 125 TAB PO (10:27)
[2022-03-22 13:44] VITALS: O2SAT 89
--- NOTE | 2022-03-22 16:15 | PDOC.CMDIS ---
- If Service Date Differs Date of service: 03/22/22 Time of Service: 16:15 LACE Index Scoring Tool - Questions: Length of Stay (in days): 3 Acuity (Admit via E.D.?): Yes Comorbidities: Congestive Heart Failure, Chronic Pulmonary Disease, Any Tumor E.D. Visits: 4 - Answers: Total Score: 15 Risk of Readmission: High Risk Care Management Discharge Reason for Hospitalization: PE, Pneumonia Discharge Plan: Siomara will discharge home when medically cleared by provider. She will transport via private vehicle with family. She will follow up with her community providers and discharge plan of care as prescribed. Patient/Family Education Needs: Review discharge instructions, discuss Ask Me Three.
== END 2022-03-22 13:41 | disposition home or self-care (01) | DRG 175 ==
LOC: ER 19:24 → MS 20:43
PROVIDERS: Family Medicine; Admitting Provider Family Medicine; Emergency Provider Emergency Medicine; PCP Family Medicine; Visit Provider Family Medicine
DX: I26.09 Other pulmonary embolism with acute cor pulmonale (principal); J13 Pneumonia due to Streptococcus pneumoniae; J96.01 Acute respiratory failure with hypoxia; J96.22 Acute and chronic respiratory failure with hypercapnia; I48.21 Permanent atrial fibrillation; J44.0 Chronic obstructive pulmonary disease with (acute) lower respiratory infection; C34.91 Malignant neoplasm of unspecified part of right bronchus or lung; I50.32 Chronic diastolic (congestive) heart failure; N13.30 Unspecified hydronephrosis; R04.2 Hemoptysis; I11.0 Hypertensive heart disease with heart failure; F17.210 Nicotine dependence, cigarettes, uncomplicated; R53.1 Weakness
CPT/HCPCS: 36415; 71275; 80053; 87635; 93005; 93306; 94640; 96374; 99285; 71045; 74177; 83880; 84484; 85025; 85610; 85730; 93010; 99232; 99233; 99239; J1885; J3490; J7614; J7620; J7644

== ENCOUNTER 2022-05-18 19:45 | Outpatient (REF) | payer MEDICARE, SELFPAY ==
[2022-05-18 19:14] LABS: Abs Immature Grans 0.02 10^3/uL (0.0-0.06); Absolute Basophil Count 0.04 10^3/uL (0.0-0.2); Absolute Eosinophil Count 0.05 10^3/uL (0.0-0.7); Absolute Lymphocyte Count 0.81 10^3/uL (1.2-3.4); Absolute Monocyte Count 0.75 10^3/uL (0.1-0.8); Absolute Neutrophil Count 6.81 10^3/uL (1.2-6.7); Basophils % 0.5; Eosinophils % 0.6; HGB 13.9 g/dL (11.2-15.7); Immature Grans % 0.2; Lymphocytes % 9.6; MCH 30.3 pg (27.0-33.0); MCHC 33.9 % (32.0-36.0); MCV 89 fL (80-95); MPV 10.6 fL (8.0-11.0); Monocytes % 8.8; Neutrophils % 80.3; Platelet Count 215 10^3/uL (130-400); RBC 4.59 10^6/uL (3.93-5.22); RDW 14.4 % (11.7-14.6); RDW-SD 47.2 fL; WBC 8.48 10^3/uL (4.4-10.8)
== END 2022-05-18 19:46 | disposition home or self-care (01) ==
LOC: NCHCN 19:45
PROVIDERS: PCP Family Medicine; Visit Provider Family Medicine
DX: R53.83 Other fatigue (principal); K68.9 Other disorders of retroperitoneum; Z79.01 Long term (current) use of anticoagulants
CPT/HCPCS: 85025

== ENCOUNTER 2022-05-19 14:49 | Outpatient (REF) | payer MEDICARE, SELFPAY ==
[2022-05-19 22:46] LABS: Anion Gap 9.3 mmol/L (3-11); BUN 63 mg/dL (7-18); CO2 26.7 mmol/L (21.0-32.0); Calcium 8.9 mg/dL (8.5-10.1); Chloride 101 mmol/L (98-107); Estimated GFR 7.94 (mL/min/1.73m2); Glucose 107 mg/dL (74-106); Potassium 4.9 mmol/L (3.5-5.1); Sodium 137 mmol/L (136-145)
[2022-05-19 23:30] LABS: CREATININE 5.3 mg/dL (0.55-1.02)
== END 2022-05-19 14:50 | disposition home or self-care (01) ==
LOC: LBN 14:49
PROVIDERS: PCP Family Medicine; Visit Provider Family Medicine
DX: R10.30 Lower abdominal pain, unspecified (principal); R31.9 Hematuria, unspecified; N13.30 Unspecified hydronephrosis
CPT/HCPCS: 80048

== ENCOUNTER 2022-05-20 00:19 | Inpatient (IN) | payer MEDICARE, SELFPAY ==
[2022-05-20] VITALS (126 sets, daily range): BP systolic 114–165; BP diastolic 59–92; PULSE 49–93; RESP 9–31; TEMP 36.2–36.7; O2SAT 88–99; BMI 20.9
[2022-05-20 01:09] LABS: Abs Immature Grans 0.02 10^3/uL (0.0-0.06); Absolute Basophil Count 0.06 10^3/uL (0.0-0.2); Absolute Eosinophil Count 0.12 10^3/uL (0.0-0.7); Absolute Lymphocyte Count 0.95 10^3/uL (1.2-3.4); Absolute Monocyte Count 0.67 10^3/uL (0.1-0.8); Absolute Neutrophil Count 6.26 10^3/uL (1.2-6.7); Basophils % 0.7; Eosinophils % 1.5; HCT 34.8 % (36.0-46.0); HGB 11.7 g/dL (11.2-15.7); Immature Grans % 0.2; Lymphocytes % 11.8; MCH 30.5 pg (27.0-33.0); MCHC 33.6 % (32.0-36.0); MCV 91 fL (80-95); MPV 10.1 fL (8.0-11.0); Monocytes % 8.3; Neutrophils % 77.5; Platelet Count 173 10^3/uL (130-400); RBC 3.84 10^6/uL (3.93-5.22); RDW 14.6 % (11.7-14.6); RDW-SD 48.2 fL; WBC 8.08 10^3/uL (4.4-10.8)
[2022-05-20 01:23] LABS: ALT 11 U/L (14-59); AST 15 U/L (15-37); Albumin 3.1 g/dL (3.4-5.0); Alkaline Phosphatase 78 U/L (46-116); Anion Gap 8.3 mmol/L (3-11); BUN 64 mg/dL (7-18); Bilirubin, Total 0.5 mg/dL (0.2-1.0); CO2 25.7 mmol/L (21.0-32.0); Calcium 8.8 mg/dL (8.5-10.1); Chloride 101 mmol/L (98-107); Estimated GFR 7.43 (mL/min/1.73m2); Glucose 101 mg/dL (74-106); Sodium 135 mmol/L (136-145); Total Protein 6.6 g/dL (6.4-8.2)
[2022-05-20 01:23] LABS: Bilirubin Small (Negative); Blood Large (Negative); Clarity Cloudy (Clear); Glucose Negative (Negative); Ketones Negative (Negative); Leukocyte Esterase Negative (Negative); Nitrite Negative (Negative); Specific Gravity 1.015 (1.005-1.025); Urobilinogen 0.2 EU/dL (Up TO 0.2)
[2022-05-20 01:29] LABS: CREATININE 5.6 mg/dL (0.55-1.02)
--- NOTE | 2022-05-20 01:30 | DI.CT_ITS ---
Exam(s) CT RENAL COLIC WO EXAM: CT RENAL COLIC WO CLINICAL HISTORY: nell, known obstructive process, worsening cr. TECHNIQUE: Imaging Protocol: Axial computed tomography images with coronal and sagittal reformatted images were created and reviewed. COMPARISON: CT CT ABDOMEN PELVIS W from 03/20/2022 CT,PT NM PET CT STANDARD SKULL BASE TO MID-THIGH from 04/29/2022 FINDINGS: ABDOMEN: Lung Bases: There is a persistent small to moderate size left pleural effusion. Liver: Normal density. No measurable mass. Gallbladder and biliary tract: Status post cholecystectomy. No significant biliary ductal dilatation . Pancreas: Normal density, no abnormal calcifications or inflammatory process. Spleen: Normal. Kidneys: Normal size, contour and axis.No nephrolithiasis. There is marked bilateral hydronephrosis. The dilatation extends into the pelvis just proximal to the ureter. This is unchanged compared to the CT-PET examination from 04/29/2022. No masses seen. Adrenal glands: No mass is seen. Lymph nodes: There is again seen a retroperitoneal soft tissue at the level of the pelvic inlet which appears to encase both the right and left ureters. Abdominal Aorta: There is again seen a 3.3 x 3.5 cm infrarenal abdominal aortic aneurysm. Extensive atherosclerosis is present. PELVIS: Bladder:Symmetric distention, no gross wall thickening. Bowel: No obstruction or bowel wall thickening. No evidence of appendicitis. There is diverticulosis seen in the colon but no evidence of acute diverticulitis. Peritoneal cavity: There is a small amount of pelvic ascites. No free air. Reproductive organs: Status post hysterectomy. Bones: Unchanged appearance of the bones. Soft Tissues: Within normal limits. IMPRESSION: 1. Persistent bilateral hydronephrosis which appears to be secondary to the retroperitoneal soft tiss ue compression/encasing both ureters. This was present on the PET-CT from 04/29/2022. This may repre sent fibrosis or confluency adenopathy. 2. Stable 3.3 x 3.5 cm infrarenal abdominal aortic aneurysm. 3. Small amount of pelvic ascites. RADIATION DOSE DELIVERED: 516.44mGy.cm Total DLP DATA REPOSITORY: All CT scans at this facility are submitted to the National Radiology Data Registry (NRDR) Dose Index Registry (DIR) with the [employer] ([employer]). RADIATION OPTIMIZATION: All CT scans at this facility use at least one of these dose optimization te chniques: automated exposure control; mA and/or kV adjustment per patient size (includes targeted exa ms where dose is matched to clinical indication); or iterative reconstruction.
[2022-05-20 01:33] LABS: C & S Indicated? No; RBC >50 HPF (0-2)
--- NOTE | 2022-05-20 01:41 | W.ED.GENAD ---
Discharge Plan Disposition Patient Disposition: [facility] INPATIENT Condition: Serious Discharge Details Chief Complaint: GenMedical Clinical Impression: LORENE (acute kidney injury), Hydronephrosis, Extrinsic ureteral obstruction Primary Care Provider: Sherwin Ceja ED Provider: Ky Mccormick Home Meds and New Rx's Prescriptions: No Action Xarelto 20 mg tablet 20 mg PO QPM Qty: 30 11RF Rx Instructions: must administer with evening meal diltiazem HCl 120 mg capsule,extended release 24hr 120 mg PO HS atorvastatin [Lipitor] 80 mg Tablet 80 mg PO QPM albuterol sulfate [ProAir HFA] 90 mcg/actuation Hfa Aerosol Inhaler 2 puff INHALATION QID PRN ipratropium-albuterol 0.5 mg-3 mg(2.5 mg base)/3 mL Solution For Nebulization 3 ml UPD Q6H PRN PRN (Reason: shortness of breath or wheezing) Qty: 180 0RF Inhaler, Assist Devices [Pocket Chamber] 1 ea miscellaneous DIRECTED Qty: 0 0RF Stiolto Respimat 2.5-2.5 mcg/actuation mist 2 spray INHALATION DAILY Label Comments: Inhale 2 puff as directed once a day guaifenesin 600 mg tablet extended release 12hr 600 mg PO BID PRN Medical Decision Making 149??77-year-old female with multiple medical problems here with increased fatigue and decreased appetite, found to have retroperitoneal mass causing obstructive urinary process, now with acute kidney injury and significant elevation of creatinine from baseline of 0.8 in March to now 5.6. Plan to obtain CT of the abdomen pelvis to assess for progression of disease and acute surgical process. Patient has plan for outpatient stenting scheduled 05/28/2022 at [facility]. I called [facility] transfer center to request emergent transfer and this was denied due to capacity. Spoke with hospitalist on-call, Dr. Richards, she recommends empiric treatment with Zosyn and to discuss potential transfer with [facility] given complexity of disease. --CT of the abdomen pelvis was interpreted by radiology: I called [facility] transfer center to request transfer, awaiting callback. [phone]--I received call from [facility] transfer center - they refuse to accept patient in transfer secondary to capacity. I called and spoke with Dr. Richards, updated her as to the ED course, she will admit the patient and request bridging orders be placed to the ICU. Lab Data Lab results reviewed: Yes I reviewed the patient's lab results. Labs: Laboratory Tests Range/Units 05/20/22 05/20/22 05/20/22 01:03 01:03 01:20 WBC (4.4-10.8) 10^3/uL 8.08 RBC (3.93-5.22) 10^6/uL 3.84 L Hgb (11.2-15.7) g/dL 11.7 D Hct (36.0-46.0) % 34.8 L MCV (80-95) fL 91 MCH (27.0-33.0) pg 30.5 MCHC (32.0-36.0) % 33.6 RDW (11.7-14.6) % 14.6 Plt Count (130-400) 10^3/uL 173 MPV (8.0-11.0) fL 10.1 Immature Gran % 0.2 Neutrophils % 77.5 Lymphocytes % 11.8 Monocytes % 8.3 Eosinophils % 1.5 Basophils % 0.7 Nucleated RBC % (0.0-0.3) % 0.0 Absolute Neutrophils (1.2-6.7) 10^3/uL 6.26 Absolute Lymphocytes (1.2-3.4) 10^3/uL 0.95 L Absolute Monocytes (0.1-0.8) 10^3/uL 0.67 Absolute Eosinophils (0.0-0.7) 10^3/uL 0.12 Absolute Basophils (0.0-0.2) 10^3/uL 0.06 Sodium (136-145) mmol/L 135 L Potassium (3.5-5.1) mmol/L 5.0 Chloride (98-107) mmol/L 101 Carbon Dioxide (21.0-32.0) mmol/L 25.7 Anion Gap (3-11) mmol/L 8.3 BUN (7-18) mg/dL 64 H Creatinine (0.55-1.02) mg/dL 5.6 H* Est GFR (CKD-EPI 2020) (mL/min/1.73m2) 7.43 Glucose (74-106) mg/dL 101 Calcium (8.5-10.1) mg/dL 8.8 Total Bilirubin (0.2-1.0) mg/dL 0.5 AST (15-37) U/L 15 ALT (14-59) U/L 11 L Alkaline Phosphatase (46-116) U/L 78 Total Protein (6.4-8.2) g/dL 6.6 Albumin (3.4-5.0) g/dL 3.1 L Urine Color (Yellow) Red Urine Clarity (Clear) Cloudy Urine pH (5-8) 6.0 Ur Specific Townsend (1.005-1.025) 1.015 Urine Protein (Negative) mg/dL 100 H Urine Ketones (Negative) mg/dL Negative Urine Blood (Negative) Large H Urine Nitrite (Negative) Negative Urine Bilirubin (Negative) Small H Urine Urobilinogen (Up TO 0.2) EU/dL 0.2 Ur Leukocyte Esterase (Negative) Negative Urine RBC (0-2) HPF >50 H Urine WBC (0-5) HPF Ur Epithelial Cells (Negative) HPF Urine Crystals (Negative) HPF Urine Bacteria (Negative) HPF Urine Mucus (Negative) Ur Culture Indicated? No Urine Glucose (Negative) mg/dL Negative HPI General Mode of arrival: ambulatory. Date/Time Provider Initiated Documentation: 05/20/22 00:53. Limitations to Documentation: no limitations. Information obtained by: patient and family. HPI Narrative: 77-year-old female with multiple medical problems including history of atrial fibrillation, COPD, hypertension, hypercholesterolemia, lung cancer in remission, found to have obstructive mass in the left adnexal area on CT 03/20/2022, referred to [facility] urology with plan for renal stenting to be performed on 05/28/2022. Patient had seen her PCP this week for increased fatigue and decreased appetite, had routine labs done earlier today that demonstrate acute kidney injury with significant elevation of her creatinine to 5 from a baseline of less than 1. Patient does does note pink urine intermittently over the last month and more continuously over the past few days. Symptoms are moderate with no modifiers. She denies associated dysuria. No fever. She does have some associated right lower abdominal/pelvic pain. Patient is continuing to make urine. Related Data Home Medications Medication Instructions Recorded Confirmed albuterol sulfate 90 mcg/actuation 2 puff inhalation QID PRN 11/09/18 05/20/22 aerosol inhaler (ProAir HFA) atorvastatin 80 mg tablet (Lipitor) 80 mg PO QPM 11/09/18 05/20/22 ipratropium 0.5 mg-albuterol 3 mg 3 ml UPD Q6H PRN PRN shortness of 11/16/18 05/20/22 (2.5 mg base)/3 mL nebulization breath or wheezing #180 mL soln rivaroxaban 20 mg tablet (Xarelto) 20 mg PO QPM #30 tabs 03/14/19 05/20/22 diltiazem HCl 120 mg 120 mg PO HS 09/21/19 05/20/22 capsule,extended release 24 hr Inhaler, Assist Devices [Pocket 1 ea miscellaneous DIRECTED ##0 08/27/21 04/16/22 Chamber] tiotropium 2.5 mcg-olodaterol 2.5 2 spray inhalation DAILY 03/17/22 05/20/22 mcg/actuation mist for inhalation (Stiolto Respimat) guaifenesin 600 mg tablet, 600 mg PO BID PRN 05/20/22 05/20/22 extended release 12 hr Previous Rx's Medication Instructions Recorded ipratropium 0.5 mg-albuterol 3 mg 3 ml UPD Q6H PRN PRN shortness of 11/16/18 (2.5 mg base)/3 mL nebulization breath or wheezing #180 mL soln rivaroxaban 20 mg tablet (Xarelto) 20 mg PO QPM #30 tabs 03/14/19 Inhaler, Assist Devices [Pocket 1 ea miscellaneous DIRECTED ##0 08/27/21 Chamber] Allergies Allergy/AdvReac Type Severity Reaction Status Date / Time No Known Allergies Allergy Unverified 05/20/22 00:32 General Stated Complaint: GenMedical BOGDAN: 3 Review of Systems All systems reviewed & are unremarkable except as noted in HPI and below Constitutional Constitutional: Denies fever(s), Reports lethargy and Reports poor appetite Cardiovascular Cardiovascular: Denies dyspnea Respiratory Respiratory: Denies dyspnea Gastrointestinal Gastrointestinal: Reports as per HPI Genitourinary Genitourinary: Reports as per HPI PFSH All Active Problems (Updated 05/20/22 @ 05:20 by Ky Mccormick MD) LORENE (acute kidney injury) (Acute) Hydronephrosis (Acute) Extrinsic ureteral obstruction (Acute) AAA (abdominal aortic aneurysm) (Acute) Bilateral hydronephrosis (Acute) Hydronephrosis (Acute) Pulmonary emboli (Chronic) Pneumonia (Acute) Respiratory failure with hypoxia and hypercapnia (Acute) NSCLC of right lung (Acute) Palliative care patient (Acute) Pulmonary hypertension (Acute) Cor pulmonale (Acute) Weakness of both legs (Acute) Hypoxia (Acute) Requires supplemental oxygen (Acute) Hypoxia (Acute) Shortness of breath (Acute) CHF (congestive heart failure) (Chronic) Hemoptysis (Acute) HTN (hypertension) (Chronic) Atrial fibrillation (Chronic) Smoker (Acute) COPD (chronic obstructive pulmonary disease) (Chronic) Medical History Acute and chronic respiratory failure ([id number]) Acute exacerbation of chronic obstructive pulmonary disease Acute exacerbation of congestive heart failure Acute on chronic respiratory failure with hypoxia and hypercapnia Acute respiratory acidosis Acute respiratory failure with hypoxia and hypercapnia Atrial fibrillation Chronic respiratory failure with hypoxia and hypercapnia COPD (chronic obstructive pulmonary disease) HTN (hypertension) Hypercholesteremia Lung cancer Lung mass Pulmonary hypertension Smoker Surgical History S/P appendectomy S/P cholecystectomy S/P hysterectomy Family History Father Hemochromatosis Cirrhosis due to hemochromatosis Diabetes Daughter Heart disease MO in 40s Social History Smoking/Tobacco Use Status: Current-Occasional Tobacco Type: cigarettes Years smoked: 50 Quit status: considering quitting Counseling given: patient declined Smoking risk assessment performed?: Yes Alcohol Intake: never Drug use: Never Substance use type: does not use What type of physical activity do you participate in: none Do you feel safe at home: Yes Do you feel safe in your relationship?: Yes Additional Social history: lives alone, but a lot of family in the area. of lung cancer Exam Const General: cooperative and no acute distress HENMT Mouth: moist mucous membranes Eyes Conjunctivae: normal conjunctivae Sclera: normal sclerae Neck Neck: trachea midline Resp Auscultation: clear to auscultation bilaterally, no rales, no rhonchi and no wheezes Cardio Rate: regular rate and not tachycardic Rhythm: regular rhythm GI Palpation: soft, not firm, no guarding, no masses, not rigid and tender in the RUQ (rt suprapubic); with no rebound tenderness Skin General skin exam: no rashes or lesions noted Neuro General: patient alert, patient awake, patient oriented x3 and tone normal Extrem General: no edema Psych Appearance: grossly normal Mental Status: mental status grossly normal Speech and Movement: speech and movement normal Course Vital Signs Vital signs: Vital Signs Temperature 36.7 C 05/20/22 00:28 Pulse 70 05/20/22 00:28 Respiratory Rate 22 05/20/22 00:28 Blood Pressure 150/73 H 05/20/22 00:28 Pulse Oximetry 95 05/20/22 00:28 Temperature 36.7 C 05/20/22 00:28 Temperature Source Skin 05/20/22 00:28 Pulse 61 05/20/22 01:15 Pulse 57 L 05/20/22 01:20 Respiratory Rate 22 05/20/22 01:20 Respiratory Effort 05/20/22 00:35 Respiratory Depth Normal 05/20/22 00:35 Respiratory Pattern Normal 05/20/22 00:35 Blood Pressure 145/75 H 05/20/22 01:15 Blood Pressure Mean 92 05/20/22 01:15 Blood Pressure Position Supine 05/20/22 00:28 Pulse Oximetry 96 05/20/22 01:20 Oxygen Delivery Method Room Air 05/20/22 00:28 Oxygen Flow Rate 0 05/20/22 00:28 Pain Level 0 05/20/22 00:28 Lab/Test Results Lab/Test Results: Laboratory Tests Range/Units 05/20/22 05/20/22 05/20/22 01:03 01:03 01:20 WBC (4.4-10.8) 10^3/uL 8.08 RBC (3.93-5.22) 10^6/uL 3.84 L Hgb (11.2-15.7) g/dL 11.7 D Hct (36.0-46.0) % 34.8 L MCV (80-95) fL 91 MCH (27.0-33.0) pg 30.5 MCHC (32.0-36.0) % 33.6 RDW (11.7-14.6) % 14.6 Plt Count (130-400) 10^3/uL 173 MPV (8.0-11.0) fL 10.1 Immature Gran % 0.2 Neutrophils % 77.5 Lymphocytes % 11.8 Monocytes % 8.3 Eosinophils % 1.5 Basophils % 0.7 Nucleated RBC % (0.0-0.3) % 0.0 Absolute Neutrophils (1.2-6.7) 10^3/uL 6.26 Absolute Lymphocytes (1.2-3.4) 10^3/uL 0.95 L Absolute Monocytes (0.1-0.8) 10^3/uL 0.67 Absolute Eosinophils (0.0-0.7) 10^3/uL 0.12 Absolute Basophils (0.0-0.2) 10^3/uL 0.06 Sodium (136-145) mmol/L 135 L Potassium (3.5-5.1) mmol/L 5.0 Chloride (98-107) mmol/L 101 Carbon Dioxide (21.0-32.0) mmol/L 25.7 Anion Gap (3-11) mmol/L 8.3 BUN (7-18) mg/dL 64 H Creatinine (0.55-1.02) mg/dL 5.6 H* Est GFR (CKD-EPI 2020) (mL/min/1.73m2) 7.43 Glucose (74-106) mg/dL 101 Calcium (8.5-10.1) mg/dL 8.8 Total Bilirubin (0.2-1.0) mg/dL 0.5 AST (15-37) U/L 15 ALT (14-59) U/L 11 L Alkaline Phosphatase (46-116) U/L 78 Total Protein (6.4-8.2) g/dL 6.6 Albumin (3.4-5.0) g/dL 3.1 L Urine Color (Yellow) Red Urine Clarity (Clear) Cloudy Urine pH (5-8) 6.0 Ur Specific Townsend (1.005-1.025) 1.015 Urine Protein (Negative) mg/dL 100 H Urine Ketones (Negative) mg/dL Negative Urine Blood (Negative) Large H Urine Nitrite (Negative) Negative Urine Bilirubin (Negative) Small H Urine Urobilinogen (Up TO 0.2) EU/dL 0.2 Ur Leukocyte Esterase (Negative) Negative Urine RBC (0-2) HPF >50 H Urine WBC (0-5) HPF Ur Epithelial Cells (Negative) HPF Urine Crystals (Negative) HPF Urine Bacteria (Negative) HPF Urine Mucus (Negative) Ur Culture Indicated? No Urine Glucose (Negative) mg/dL Negative
[2022-05-20] MEDS: PIPERACILLIN/TAZO 3.375 GM in Normal Saline 50 ML IVPB (01:47)
--- NOTE | 2022-05-20 03:51 | DI.VRAD_ITS ---
PROCEDURE INFORMATION: Exam: CT Abdomen And Pelvis Without Contrast Exam date and time: 05/20/2022 1:53 AM Age: 77 years old Clinical indication: Other: Foreign, known obstructive process, worsening CR; Prior surgery; Surgery date: 6+ months; Surgery type: Appendectomy, cholecystectomy TECHNIQUE: Imaging protocol: Computed tomography of the abdomen and pelvis without contrast. Radiation optimization: All CT scans at this facility use at least one of these dose optimization techniques: automated exposure control; mA and/or kV adjustment per patient size (includes targeted exams where dose is matched to clinical indication); or iterative reconstruction. COMPARISON: 1. PT NM PET CT STANDARD SKULL BASE TO MID-THIGH 04/29/2022 9:[address] Abdomen/Pelvis With Contrast 03/20/2022 9:00 AM FINDINGS: Lungs: Mild left basilar atelectatic changes. Pleural spaces: There is a small left pleural effusion. Liver: Normal size and homogeneous density. In the left liver lobe, there is a 5 mm hypodensity, too small to characterize.. Gallbladder and bile ducts: There has been a cholecystectomy. There is no evidence of biliary ductal dilation. Pancreas: Normal size and homogeneous density. No ductal dilation. Spleen: Normal. No splenomegaly. Adrenal glands: There is a poorly delineated nodule left adrenal consistent with metastatic disease. Kidneys and ureters: There is severe bilateral hydronephrosis, worse than on 03/20/2022. No renal or ureteral calculi identified. There is vascular calcification in the left kidney. There is increased soft tissue density in the retroperitoneum at the level of the pelvic inlet that may be secondary to fibrosis or confluent adenopathy. This is causing extrinsic compression of the ureters. Stomach and bowel: Thickening of the gastric wall that may be secondary to gastritis or underdistension. There are multiple air-fluid levels in small bowel and colon without significant distention or is a zone of transition, suggestive of a diarrheal state. Appendix: No evidence of appendicitis. Intraperitoneal space: There is no evidence of free air in the peritoneal cavity. No fluid collections identified. Vasculature: There is a calcified aneurysm of the infrarenal abdominal aorta measuring 3.4 cm in diameter with calcified mural thrombus. Lymph nodes: Possible confluent retroperitoneal lymph nodes versus fibrosis. Urinary bladder: The bladder is moderately distended. There is thickening of the bladder wall. Reproductive: Unremarkable as visualized. Bones/joints: There is diffuse osseous demineralization. Mottled appearance of multiple vertebral bodies is suspicious for metastatic disease. Soft tissues: Anasarca of the abdominal wall and mesentery. IMPRESSION: 1. Interval worsening of bilateral hydronephrosis without obstructive calculi. Findings are likely secondary to extrinsic compression of the ureters by retroperitoneal tissue that may represent fibrosis or confluent adenopathy. 2. Thickening of the gastric wall that may be secondary to gastritis or underdistension. 3. 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 4. Fluid throughout the small bowel and colon without significant distention suggestive of a diarrheal state. 5. Diffuse mottling of the visualized vertebral bodies suggesting metastatic disease versus diffuse osseous demineralization. 6. Additional non emergent findings as above. Dictated and Authenticated by: Ozzy Steel MD. Ordering:EZEQUIEL Mcpherson MD
[2022-05-20 04:11] LABS: Source Nasal/Nares
[2022-05-20 04:47] LABS: COVID-19 PCR Negative (Negative)
--- NOTE | 2022-05-20 07:02 | HPE_ITS ---
Date of service: 05/20/22 Time of Service: 05:30 Assessment and Plan Assessment and plan (1) Acute renal failure: Status: Acute Assessment and plan: This is obstructive in etiology and is largely due to extrinsic compression from this retroperitoneal fibrosis versus mass versus confluent adenopathy. This has worened since prior imaging in March. Her creatinine has acutely worsened since her April labs at [facility] [place] [place]. She is still producing urine but it does seem as though she more urgently needs stenting to relieve the obstruction than previously planned as an outpatient. Transfer to [facility] [place] [place] was refused overnight despite her being established there and planned for procedure. - no need for IVF - NPO for now given possible pending procedure - Urology consultation - monitor urine output (2) Bilateral hydronephrosis: Status: Acute Assessment and plan: Again extrinsic compression. We will have Dr. Go see the patient and see if he thinks he can stent her here. Of note, she is anticoagulated on Xarelto for recent PE, but in my opinion this can be held short term to facilitate this proc edure if needed. Additionally she has significant pulmonary hypertension and would be high risk for general anesthesia. That being said I did bronch her earlier this sumemr with conscious sedation and she tolerated the procedure well. - Urology consultation - planned for OR for stent placement today (3) Extrinsic ureteral obstruction: Status: Acute Assessment and plan: As above (4) Pulmonary emboli: Status: Chronic Assessment and plan: - Xarelto held for now - would restart this tomorrow if bleeding is at a reasonable risk (5) Pulmonary hypertension: Status: Acute Assessment and plan: Chronic - discussed sedation plan with anesthesia (6) COPD (chronic obstructive pulmonary disease): Status: Chronic Assessment and plan: - conitnue home Stiolto, prn albuterol and nebs (7) Anemia: Status: Chronic Assessment and plan: Will closely monitor Hb (8) Retroperitoneal mass: Status: Acute Assessment and plan: Will need further work up - biopsies etc when patient is more stable -IgG4 ordered (9) AAA (abdominal aortic aneurysm): Status: Acute (10) Aortic mural thrombus: Status: Acute Assessment and plan: A total of 90 minutes was spent on critical care with this patient including discussing care with patient, nursing, consultants and other medical staff, coordination of care, review of chart and documentation. History of Present Illness Narrative: This is a 77 yo female with a history of RUL NSCLC, COPD with a 50 pack year smoking history, recent PE on Xarelto who is admitted for acute renal failure. The past few months of her course has been somewhat active: 02/17/22 - lung cancer screening CT finds new opacity in left lung, infection versus metastatic disease, new left hydronephrosis 03/04/22 - I recommend holding Xarelto for worsening hemoptysis and we plan for bronchoscopy and future PET scan as I believe this to be infection in the lungs 03/19/22 - bronchoscopy performed, impression is pneumonia - I prescribe Augmentin. Patient goes home but clinically has chest pain and dyspnea - I have her return to ED - she is found to have PE - restarted on Xarelto. CT chest again notes hydro, CT abdo/pelvis obtain and verifies this hydronephrosis 03/22/22 - discharged home on home Xarelto and Augmentin 04/29/22 - called by [facility] [place] [place] radiology about PET scan results - development of severe bilateral hydronephrosis and possible retroperitoneal fibrosis as well as a CT urogram showing severe but not complete obstruction. Patients PCP was out of office and [facility] urology was on vacation so I called [facility] [place] [place] urology and discussed urgency and case with them Her Cr at the time was not overly elevated and the patient was asymptomatic so plan for short term outpatient follow up was made. 05/10/22 - Patient sees [facility] [place] [place] urology: Cr 1.07, she is now having gross hematuria. Plan is made for cystoscopy with bilateral RPG's, stent placement, possible ureteroscopy with biopsy and ureteral washing. This procedure was scheduled for 05/28/22 05/18/22 - Calls to [facility] [place] [place] urology stating Siomara is having more weakness, loss of appetite, weight loss, much more blood in urine. Instructed to get blood work with PCP. This is completed, which prompts ED trip given very elevated creatinine. On my assessment today Jessica is feeling well. Her breathing is at baseline. She is tired and weak. She has lost weight in the last 6 months - used to be 135lbs, now 118lbs. She has some mild low abdominal pain, but no back pain. She endorses alot of blood in her urine to the point of needing to her a pad. Review of Systems All systems reviewed & are unremarkable except as noted in HPI and below PFSH All Active Problems (Updated 05/20/22 @ 07:57 by Leigha Newton MD) Aortic mural thrombus (Acute) Retroperitoneal mass (Acute) Anemia (Chronic) Bilateral hydronephrosis (Acute) Acute renal failure (Acute) Extrinsic ureteral obstruction (Acute) AAA (abdominal aortic aneurysm) (Acute) Pulmonary emboli (Chronic) Pneumonia (Acute) Respiratory failure with hypoxia and hypercapnia (Acute) NSCLC of right lung (Acute) Palliative care patient (Acute) Pulmonary hypertension (Acute) Cor pulmonale (Acute) Weakness of both legs (Acute) Hypoxia (Acute) Requires supplemental oxygen (Acute) Hypoxia (Acute) Shortness of breath (Acute) CHF (congestive heart failure) (Chronic) HTN (hypertension) (Chronic) Atrial fibrillation (Chronic) Smoker (Acute) COPD (chronic obstructive pulmonary disease) (Chronic) Medical History Acute and chronic respiratory failure ([id number]) Acute exacerbation of chronic obstructive pulmonary disease Acute exacerbation of congestive heart failure Acute on chronic respiratory failure with hypoxia and hypercapnia Acute respiratory acidosis Acute respiratory failure with hypoxia and hypercapnia LORENE (acute kidney injury) Atrial fibrillation Bilateral hydronephrosis Chronic respiratory failure with hypoxia and hypercapnia COPD (chronic obstructive pulmonary disease) Hemoptysis HTN (hypertension) Hydronephrosis Hydronephrosis Hypercholesteremia Lung cancer Lung mass Pulmonary hypertension Smoker Surgical History S/P appendectomy S/P cholecystectomy S/P hysterectomy Family History Father Hemochromatosis Cirrhosis due to hemochromatosis Diabetes Daughter Heart disease [place] in 40s Social History Smoking/Tobacco Use Status: Current-Occasional Tobacco Type: cigarettes Years smoked: 50 Quit status: considering quitting Counseling given: patient declined Smoking risk assessment performed?: Yes Alcohol Intake: never Drug use: Never Substance use type: does not use What type of physical activity do you participate in: none Do you feel safe at home: Yes Do you feel safe in your relationship?: Yes Additional Social history: lives alone, but a lot of family in the area. of lung cancer Meds Allergies and Home Medications Allergies Allergy/AdvReac Type Severity Reaction Status Date / Time No Known Allergies Allergy Unverified 05/20/22 00:32 Home Medications Medication Instructions Recorded Confirmed Type albuterol sulfate 90 mcg/actuation 2 puff inhalation QID PRN 11/09/18 05/20/22 History aerosol inhaler (ProAir HFA) atorvastatin 80 mg tablet (Lipitor) 80 mg PO QPM 11/09/18 05/20/22 History ipratropium 0.5 mg-albuterol 3 mg 3 ml UPD Q6H PRN PRN shortness of 11/16/18 05/20/22 Rx (2.5 mg base)/3 mL nebulization breath or wheezing #180 mL soln rivaroxaban 20 mg tablet (Xarelto) 20 mg PO QPM #30 tabs 03/14/19 05/20/22 Rx diltiazem HCl 120 mg 120 mg PO HS 09/21/19 05/20/22 History capsule,extended release 24 hr Inhaler, Assist Devices [Pocket 1 ea miscellaneous DIRECTED ##0 08/27/21 04/16/22 Rx Chamber] tiotropium 2.5 mcg-olodaterol 2.5 2 spray inhalation DAILY 03/17/22 05/20/22 History mcg/actuation mist for inhalation (Stiolto Respimat) guaifenesin 600 mg tablet, 600 mg PO BID PRN 05/20/22 05/20/22 History extended release 12 hr Exam Narrative Exam Narrative: Gen: NAD, normal respiratory effort, well-nourished HENT: PERRL, nasal turbinates normal without erythema or inflammation, moist oral mucosa, Mallampati 2, No LAD or JVD Chest: No respiratory distress, normal appearance of chest, clear to auscultation bilaterally, no crackles or wheezes, normal inspiratory effort Heart: regular rate and rhythym, no murmurs, rubs or gallops Abdomen: Non-distended, soft, mild lower abdominal tenderness Extremities: No clubbing, edema, cyanosis, rashes Neuro: AAOx3 , non focal Psych: cooperative, appropriate mental affect Results Labs Result diagrams: 05/20/22 01:03 05/20/22 01:03 Labs: Laboratory Results - last 24 hr 05/20/22 05/20/22 05/20/22 01:03 01:03 01:20 WBC 8.08 RBC 3.84 L Hgb 11.7 D Hct 34.8 L MCV 91 MCH 30.5 MCHC 33.6 RDW 14.6 Plt Count 173 MPV 10.1 Immature Gran % 0.2 Neutrophils % 77.5 Lymphocytes % 11.8 Monocytes % 8.3 Eosinophils % 1.5 Basophils % 0.7 Nucleated RBC % 0.0 Absolute Neutrophils 6.26 Absolute Lymphocytes 0.95 L Absolute Monocytes 0.67 Absolute Eosinophils 0.12 Absolute Basophils 0.06 Sodium 135 L Potassium 5.0 Chloride 101 Carbon Dioxide 25.7 Anion Gap 8.3 BUN 64 H Creatinine 5.6 H* Est GFR (CKD-EPI 2020) 7.43 Glucose 101 Calcium 8.8 Total Bilirubin 0.5 AST 15 ALT 11 L Alkaline Phosphatase 78 Total Protein 6.6 Albumin 3.1 L Urine Color Red Urine Clarity Cloudy Urine pH 6.0 Ur Specific [place] 1.015 Urine Protein 100 H Urine Ketones Negative Urine Blood Large H Urine Nitrite Negative Urine Bilirubin Small H Urine Urobilinogen 0.2 Ur Leukocyte Esterase Negative Urine RBC >50 H Urine WBC Ur Epithelial Cells Urine Crystals Urine Bacteria Urine Mucus Ur Culture Indicated? No Urine Glucose Negative COVID-19 Source SARS-CoV-2 (PCR) 05/20/22 04:09 WBC RBC Hgb Hct MCV MCH MCHC RDW Plt Count MPV Immature Gran % Neutrophils % Lymphocytes % Monocytes % Eosinophils % Basophils % Nucleated RBC % Absolute Neutrophils Absolute Lymphocytes Absolute Monocytes Absolute Eosinophils Absolute Basophils Sodium Potassium Chloride Carbon Dioxide Anion Gap BUN Creatinine Est GFR (CKD-EPI 2020) Glucose Calcium Total Bilirubin AST ALT Alkaline Phosphatase Total Protein Albumin Urine Color Urine Clarity Urine pH Ur Specific [place] Urine Protein Urine Ketones Urine Blood Urine Nitrite Urine Bilirubin Urine Urobilinogen Ur Leukocyte Esterase Urine RBC Urine WBC Ur Epithelial Cells Urine Crystals Urine Bacteria Urine Mucus Ur Culture Indicated? Urine Glucose COVID-19 Source Nasal/Nares SARS-CoV-2 (PCR) Negative Last Vital Signs Temp 36.7 C 05/20/22 06:35 Pulse 57 L 05/20/22 06:35 Resp 25 H 05/20/22 06:35 BP 149/74 H 05/20/22 06:35 Pulse Ox 93 05/20/22 06:35
--- NOTE | 2022-05-20 08:15 | DI.RAD_ITS ---
Exam(s) XR RETROGRADE IN OR EXAM: XR RETROGRADE IN OR CLINICAL HISTORY: Acute renal failure TECHNIQUE: 2D and realtime digital imaging was performed. CONTRAST MATERIAL: Refer to procedure report. COMPARISON: No exams were available for comparison FINDINGS: Fluoroscopy was provided for Dr. Go during the performance of a retrograde evaluation of the ekta l collecting system.. Please refer to the procedure report for complete details. Ka,r=4.2 mGy IMPRESSION: RADIATION DOSE DELIVERED:
--- NOTE | 2022-05-20 08:41 | PDOC.CMIN ---
- If Service Date Differs Date of service: 05/20/22 Time of Service: 08:41 Care Management Initial Assess REASON FOR HOSPITALIZATION:: Bilateral hydronephrosis, Acute renal failure, Extrinsic ureteral obstruction PAST MEDICAL HISTORY/PAST SURGICAL HISTORY:: All Active Problems (Updated 05/20/22 @ 07:57 by Leigha Newton MD). Aortic mural thrombus (Acute). Retroperitoneal mass (Acute). Anemia (Chronic). Bilateral hydronephrosis (Acute). Acute renal failure (Acute). Extrinsic ureteral obstruction (Acute). AAA (abdominal aortic aneurysm) (Acute). Pulmonary emboli (Chronic). Pneumonia (Acute). Respiratory failure with hypoxia and hypercapnia (Acute). NSCLC of right lung (Acute). Palliative care patient (Acute). Pulmonary hypertension (Acute). Cor pulmonale (Acute). Weakness of both legs (Acute). Hypoxia (Acute). Requires supplemental oxygen (Acute). Hypoxia (Acute). Shortness of breath (Acute). CHF (congestive heart failure) (Chronic). HTN (hypertension) (Chronic). Atrial fibrillation (Chronic). Smoker (Acute). COPD (chronic obstructive pulmonary disease) (Chronic). Medical History. Acute and chronic respiratory failure ([id number]). Acute exacerbation of chronic obstructive pulmonary disease. Acute exacerbation of congestive heart failure. Acute on chronic respiratory failure with hypoxia and hypercapnia. Acute respiratory acidosis. Acute respiratory failure with hypoxia and hypercapnia. LORENE (acute kidney injury). Atrial fibrillation. Bilateral hydronephrosis. Chronic respiratory failure with hypoxia and hypercapnia. COPD (chronic obstructive pulmonary disease). Hemoptysis. HTN (hypertension). Hydronephrosis. Hydronephrosis. Hypercholesteremia. Lung cancer. Lung mass. Pulmonary hypertension. Smoker. Surgical History . S/P appendectomy. S/P cholecystectomy. S/P hysterectomy PREVIOUS FUNCTIONAL STATUS/SOCIAL/FAMILY SUPPORTS:: Siomara is and lives in [facility] alone with her 2 dogs. Her Granddaughter Yolette is taking care of them during her admission. Siomara identifies Yolette as being her primary support and point person to contact. Siomara is retired, drives and is independent at baseline. CURRENT FUNCTIONAL STATUS:: Simoara was lying in bed when CM met with her. She is alert, oriented and easy to engage in conversation. She met with Dr. Go this morning and is planning on going to the OR soon. Per Siomara she has been experiencing pelvic discomfort for a few weeks, she denies pain at this time. ADVANCE DIRECTIVES:: On File, [facility] is [facility] Shakira Ferris David Nelson Has patient been provided with info about the portal/API?: Yes Did the patient sign up for the portal?: No CODE STATUS:: Full Code INSURANCE COVERAGE / FINANCIAL ISSUES:: AARP/Medicare CURRENT HOME/COMMUNITY SERVICES/EQUIPMENT:: Social Security PRIMARY CARE PHYSICIAN:: Sherwin Ceja PATIENT/FAMILY EDUCATION NEEDS:: Review discharge instructions, limitations, medications and plan to follow up with community providers. ask me three. TRANSPORTATION:: Via private vehicle with family. PLAN:: Anticipate, Siomara will discharge home via private vehicle with family when medically ready. She will follow up with her community providers and discharge plan of care as prescribed. New services will be ordered, if needed. CM will continue to support discharge planning.
--- NOTE | 2022-05-20 08:53 | UCONE_ITS ---
Date of service: 05/20/22 Time of Service: 08:53 Assessment and Plan Assessment and plan (1) Bilateral hydronephrosis: Status: Acute Assessment and plan: We will plan to arrange cystoscopy with bilateral retrograde pyelogram and place bilateral ureteral stents to unblock her kidneys. If I am unable to place stents in a retrograde manner, we will likely need to have nephrostomy tubes placed by interventional radiology. (2) Smoker: Status: Acute (3) Gross hematuria: Status: Acute History of Present Illness History of Present Illness Chief Complaint: Bilateral hydronephrosis Narrative: This is a 77-year-old woman who was identified as having bilateral hydronephrosis on a CT urogram last month. She has had intermittent gross hematuria and has been a smoker over the years. She was seen by the urology service at [facility]. Her renal function was relative ly normal with a creatinine of 1.07 ng/mL she was scheduled for an elective cystoscopy with bilateral stent placement. She presented to our emergency department with anorexia nausea and vomiting. She has progressive weight loss. Her serum creatinine has risen to 5.6 ng/mL. A repeat noncontrast CT scan shows persistent bilateral hydronephrosis. There were no available beds at our tertiary care centers, so she was admitted to our intensive care unit overnight. I have been asked to see her regarding stent placement. [facility] All Active Problems (Updated 05/20/22 @ 09:00 by Marquise Go MD) Gross hematuria (Acute) Aortic mural thrombus (Acute) Retroperitoneal mass (Acute) Anemia (Chronic) Bilateral hydronephrosis (Acute) Acute renal failure (Acute) Extrinsic ureteral obstruction (Acute) AAA (abdominal aortic aneurysm) (Acute) Pulmonary emboli (Chronic) Pneumonia (Acute) Respiratory failure with hypoxia and hypercapnia (Acute) NSCLC of right lung (Acute) Palliative care patient (Acute) Pulmonary hypertension (Acute) Cor pulmonale (Acute) Weakness of both legs (Acute) Hypoxia (Acute) Requires supplemental oxygen (Acute) Hypoxia (Acute) Shortness of breath (Acute) CHF (congestive heart failure) (Chronic) HTN (hypertension) (Chronic) Atrial fibrillation (Chronic) Smoker (Acute) COPD (chronic obstructive pulmonary disease) (Chronic) Medical History Acute and chronic respiratory failure ([id number]) Acute exacerbation of chronic obstructive pulmonary disease Acute exacerbation of congestive heart failure Acute on chronic respiratory failure with hypoxia and hypercapnia Acute respiratory acidosis Acute respiratory failure with hypoxia and hypercapnia LORENE (acute kidney injury) Atrial fibrillation Bilateral hydronephrosis Chronic respiratory failure with hypoxia and hypercapnia COPD (chronic obstructive pulmonary disease) Hemoptysis HTN (hypertension) Hydronephrosis Hydronephrosis Hypercholesteremia Lung cancer Lung mass Pulmonary hypertension Smoker Surgical History S/P appendectomy S/P cholecystectomy S/P hysterectomy Family History Father Hemochromatosis Cirrhosis due to hemochromatosis Diabetes Daughter Heart disease CT in 40s Social History Smoking/Tobacco Use Status: Current-Occasional Tobacco Type: cigarettes Years smoked: 50 Quit status: considering quitting Counseling given: patient declined Smoking risk assessment performed?: Yes Alcohol Intake: never Drug use: Never Substance use type: does not use What type of physical activity do you participate in: none Do you feel safe at home: Yes Do you feel safe in your relationship?: Yes Additional Social history: lives alone, but a lot of family in the area. of lung cancer Exam Narrative Exam Narrative: He is a frail appearing woman. She does not appear septic or toxic Her vital signs are documented elsewhere She is not short of breath at rest Her abdomen is soft with no massd She is awake and alert Results Last Vital Signs Temp 36.3 C L 05/20/22 07:47 Pulse 66 05/20/22 07:47 Resp 9 L 05/20/22 07:47 BP 153/78 H 05/20/22 07:47 Pulse Ox 93 05/20/22 07:47 Labs Result diagrams: 05/20/22 01:03 05/20/22 01:03 Labs: Laboratory Results - last 24 hr 05/20/22 05/20/22 05/20/22 01:03 01:03 01:20 WBC 8.08 RBC 3.84 L Hgb 11.7 D Hct 34.8 L MCV 91 MCH 30.5 MCHC 33.6 RDW 14.6 Plt Count 173 MPV 10.1 Immature Gran % 0.2 Neutrophils % 77.5 Lymphocytes % 11.8 Monocytes % 8.3 Eosinophils % 1.5 Basophils % 0.7 Nucleated RBC % 0.0 Absolute Neutrophils 6.26 Absolute Lymphocytes 0.95 L Absolute Monocytes 0.67 Absolute Eosinophils 0.12 Absolute Basophils 0.06 Sodium 135 L Potassium 5.0 Chloride 101 Carbon Dioxide 25.7 Anion Gap 8.3 BUN 64 H Creatinine 5.6 H* Est GFR (CKD-EPI 2020) 7.43 Glucose 101 Calcium 8.8 Total Bilirubin 0.5 AST 15 ALT 11 L Alkaline Phosphatase 78 Total Protein 6.6 Albumin 3.1 L Urine Color Red Urine Clarity Cloudy Urine pH 6.0 Ur Specific [place] 1.015 Urine Protein 100 H Urine Ketones Negative Urine Blood Large H Urine Nitrite Negative Urine Bilirubin Small H Urine Urobilinogen 0.2 Ur Leukocyte Esterase Negative Urine RBC >50 H Urine WBC Ur Epithelial Cells Urine Crystals Urine Bacteria Urine Mucus Ur Culture Indicated? No Urine Glucose Negative COVID-19 Source SARS-CoV-2 (PCR) 05/20/22 04:09 WBC RBC Hgb Hct MCV MCH MCHC RDW Plt Count MPV Immature Gran % Neutrophils % Lymphocytes % Monocytes % Eosinophils % Basophils % Nucleated RBC % Absolute Neutrophils Absolute Lymphocytes Absolute Monocytes Absolute Eosinophils Absolute Basophils Sodium Potassium Chloride Carbon Dioxide Anion Gap BUN Creatinine Est GFR (CKD-EPI 2020) Glucose Calcium Total Bilirubin AST ALT Alkaline Phosphatase Total Protein Albumin Urine Color Urine Clarity Urine pH Ur Specific [place] Pos Urine Protein Urine Ketones Urine Blood Urine Nitrite Urine Bilirubin Urine Urobilinogen Ur Leukocyte Esterase Urine RBC Urine WBC Ur Epithelial Cells Urine Crystals Urine Bacteria Urine Mucus Ur Culture Indicated? Urine Glucose COVID-19 Source Nasal/Nares SARS-CoV-2 (PCR) Negative
--- NOTE | 2022-05-20 09:22 | W.ANESPRE ---
General Info Date of Service Date Performed: 05/20/22 Height: 5 ft 3 in Weight: 53.7 kg Body Mass Index (BMI): 20.9 Surgical Procedure: Operation Date: 05/20/22 11:10 Proposed Procedure Side Surgeon p Cystoscopy/Retrograde/Stent Placement Bilateral Marquise Go MD Meds Allergies and Home Medications Allergies Allergy/AdvReac Type Severity Reaction Status Date / Time No Known Allergies Allergy Unverified 05/20/22 00:32 Home Medication Medication Instructions Recorded albuterol sulfate 90 mcg/actuation 2 puff inhalation QID PRN 11/09/18 aerosol inhaler (ProAir HFA) atorvastatin 80 mg tablet (Lipitor) 80 mg PO QPM 11/09/18 ipratropium 0.5 mg-albuterol 3 mg 3 ml UPD Q6H PRN PRN shortness of 11/16/18 (2.5 mg base)/3 mL nebulization breath or wheezing #180 mL soln rivaroxaban 20 mg tablet (Xarelto) 20 mg PO QPM #30 tabs 03/14/19 diltiazem HCl 120 mg 120 mg PO HS 09/21/19 capsule,extended release 24 hr Inhaler, Assist Devices [Pocket 1 ea miscellaneous DIRECTED ##0 08/27/21 Chamber] tiotropium 2.5 mcg-olodaterol 2.5 2 spray inhalation DAILY 03/17/22 mcg/actuation mist for inhalation (Stiolto Respimat) guaifenesin 600 mg tablet, 600 mg PO BID PRN 05/20/22 extended release 12 hr Current Visit Medications: Current Medications Generic Name Dose Route Start Last Admin Trade Name Freq PRN Reason Stop Dose Admin Acetaminophen 650 mg 05/20/22 06:49 Acetaminophen 650 Mg Supp VT Q4H PRN PRN Albuterol Sulfate 2 puff 05/20/22 07:30 Albuterol Hfa 8 Gm 60 Puff Inh IH QID PRN PRN Albuterol/Ipratropium 3 ml 05/20/22 07:30 Albuterol/Ipratropium 3 Ml Upd Vial UPD Q6H PRN PRN shortness of breath or wheezing Atorvastatin Calcium 80 mg 05/20/22 20:00 Atorvastatin 40 Mg Tab PO QPM MAURA Device 1 each 05/20/22 08:00 Inhaler, Assist Device DIRECTED [facility] Diltiazem HCl 120 mg 05/20/22 22:00 Diltiazem Cd 120 Mg Capcr PO HS [facility] Dimethicone/Zinc Oxide 0 gm 05/20/22 06:49 Curt Protect Cream 142 Gm Tube TP PRN PRN Guaifenesin 600 mg 05/20/22 07:30 Guaifenesin 600 Mg Tabcr PO BID PRN PRN Sodium Chloride 500 mls @ 0 mls/hr 05/20/22 00:53 Saline 500ml Bag IV PRN PRN As Directed Piperacillin Sod/Tazobactam 50 mls @ 100 mls/hr 05/20/22 10:00 Sod 2.25 gm/ Sodium Chloride IVPB Q8H [facility] Protocol IV Miscellaneous Supplies 1 each 05/20/22 01:00 Iv Access IV DIRECTED [facility] Polyethylene Glycol 17 gm 05/20/22 06:49 Polyethylene Glycol 3350 17 Gm Packet PO DAILY PRN PRN Constipation Sodium Chloride 0 ml 05/20/22 00:53 Normal Saline Flush 10 Ml Syr IVP PRN PRN Tiotropium [place]/Olodaterol 2 puff 05/20/22 08:30 Tiotropium/Olodaterol 10 Puff Inhaler IH DAILY [facility] PFSH Active Problems Active Problems: Problem Status Onset Code Gross hematuria R31.0 Aortic mural thrombus I74.10 Retroperitoneal mass R19.00 Anemia D64.9 Bilateral hydronephrosis N13.30 Acute renal failure N17.9 Extrinsic ureteral obstruction N13.5 AAA (abdominal aortic aneurysm) I71.4 Pulmonary emboli I26.99 Pneumonia J18.9 Respiratory failure with hypoxia and hypercapnia J96.91, J96.92 NSCLC of right lung C34.91 Palliative care patient Z51.5 Pulmonary hypertension I27.20 Cor pulmonale I27.81 Weakness of both legs R29.898 Hypoxia R09.02 Requires supplemental oxygen Z99.81 Hypoxia R09.02 Shortness of breath R06.02 CHF (congestive heart failure) I50.9 HTN (hypertension) I10 Atrial fibrillation I48.91 Smoker F17.200 COPD (chronic obstructive pulmonary disease) J44.9 Medical History Medical History Acute and chronic respiratory failure ([id number]) Acute exacerbation of chronic obstructive pulmonary disease Acute exacerbation of congestive heart failure Acute on chronic respiratory failure with hypoxia and hypercapnia Acute respiratory acidosis Acute respiratory failure with hypoxia and hypercapnia LORENE (acute kidney injury) Atrial fibrillation Bilateral hydronephrosis Chronic respiratory failure with hypoxia and hypercapnia COPD (chronic obstructive pulmonary disease) Hemoptysis HTN (hypertension) Hydronephrosis Hydronephrosis Hypercholesteremia Lung cancer Lung mass Pulmonary hypertension Smoker Surgical History Surgical History S/P appendectomy S/P cholecystectomy S/P hysterectomy Tobacco Smoking/Tobacco Use Status: Current-Occasional Tobacco Type: cigarettes Smoking cigarettes per day: 2 Years smoked: 50 Counseling given: patient declined Alcohol Alcohol Intake: never Substance Use Substance use: Never Substance use type: does not use Vital Signs and Lab Results Vital Signs Most Recent Vital Signs in EMR: Most Recent Vital Signs Temp Pulse Resp BP Pulse Ox 36.3 C L 66 9 L 153/78 H 93 05/20/22 07:47 05/20/22 07:47 05/20/22 07:47 05/20/22 07:47 05/20/22 07:47 Lab Results Result Diagrams: 05/20/22 01:03 05/20/22 01:03 Blood Type / Crossmatch: No Data to Display Complete Blood Count: White Blood Count 8.08 10^3/uL (4.4-10.8) 05/20/22 01:03 Red Blood Count 3.84 10^6/uL (3.93-5.22) L 05/20/22 01:03 Hemoglobin 11.7 g/dL (11.2-15.7) 05/20/22 01:03 Hematocrit 34.8 % (36.0-46.0) L 05/20/22 01:03 Platelet Count 173 10^3/uL (130-400) 05/20/22 01:03 Complete Metabolic Panel: Sodium Level 135 mmol/L (136-145) L 05/20/22 01:03 Potassium Level 5.0 mmol/L (3.5-5.1) 05/20/22 01:03 Chloride Level 101 mmol/L (98-107) 05/20/22 01:03 Carbon Dioxide Level 25.7 mmol/L (21.0-32.0) 05/20/22 01:03 Blood Urea Nitrogen 64 mg/dL (7-18) H 05/20/22 01:03 Creatinine 5.6 mg/dL (0.55-1.02) H* 05/20/22 01:03 Calcium Level 8.8 mg/dL (8.5-10.1) 05/20/22 01:03 Albumin 3.1 g/dL (3.4-5.0) L 05/20/22 01:03 Glucose Level 101 mg/dL (74-106) 05/20/22 01:03 Liver Function Panel: Alanine Aminotransferase (ALT/SGPT) 11 U/L (14-59) L 05/20/22 01:03 Aspartate Amino Transf (AST/SGOT) 15 U/L (15-37) 05/20/22 01:03 Coagulation Panel: No Data to Display Cardiac Panel: No Data to Display Arterial Blood Gas: No Data to Display Venous Blood Gas: No Data to Display Pancreas Panel: No Data to Display Thyroid Panel: No Data to Display Infectious Disease: Coronavirus (COVID-19)(PCR) Negative (Negative) 05/20/22 04:09 Coronavirus 2019 Source Nasal/Nares 05/20/22 04:09 Blood Cultures: No Data to Display Toxicology Panel: No Data to Display Imaging and Studies Imaging and Studies Study information below may be from another EMR and interpreted by another provider. Please see original notes in EMR for more complete details. EKG Summary: 08/2021: a fib, old AMI. Stress Test Summary: 2014: normal. LVEF 65% Echocardiogram Summary: 08/2021: LVEF 60%, RVfxn normal, LA mod dilation, right atrium severe dilation. mild MR. moderate TR. RSVP 63 mmhg. moderate VT. Carotid Artery Summary:: 2015: critical left ICA. Anesthesia Assessment and Plan Anesthesia History Personal History: No History of Anesthesia Complications Family History: No Family History of Anesthesia Complications Exercise Tolerance Exercise Tolerance: Metabolic Equivalents>4 Pertinent Negatives Pertinent Negatives: No Symptoms of GERD and No History of CVA/TIA Cardiac & Pulmonary Exam Cardiac Exam: Normal S1/S2 Heart Sounds Pulmonary Exam: Wheezing Present (expiratory) Implantable Cardiac Device Does patient have a Pacemaker or an ICD?: No Airway Exam Known Difficult Airway: No Mallampati Class: 3 Mouth Opening: Narrow (< 3cm) Thyromental Distance: Less than 3 cm Neck Range of Motion: Full ROM Neck Circumference: Normal Teeth Condition: Removable Dentures/Plates Upper (left in at this time) and Edentulous ASA Classification ASA Score: ASA 3 Emergency Case?: Yes NPO Status NPO Status: NPO Clears >2 hours, Solids >8 hours Anesthesia Plan Resuscitation Status: Full Code Anesthesia Technique: MAC Anesthesia Airway Planned: Natural Airway Monitors Used: Standard Monitors
--- NOTE | 2022-05-20 09:48 | W.PM.PROGNOT ---
Date of Service Date of service: 05/20/22 Time of Service: 09:49 Subjective Subjective Interval history since last seen: Ms Quinones will be undergoing a cystoscopy today. She denies any pain, dizziness, shortness of breath, nausea. She does report her chronic productive cough. IS and acapella are now prescribed. She is agreeable to having a procedure today. Discussed with pulmonology and anesthesia. Objective Last Vital Signs Temp 36.3 C L 05/20/22 07:47 Pulse 66 05/20/22 07:47 Resp 9 L 05/20/22 07:47 BP 153/78 H 05/20/22 07:47 Pulse Ox 93 05/20/22 07:47 Laboratory Results - last 24 hr 05/20/22 05/20/22 05/20/22 01:03 01:03 01:20 WBC 8.08 RBC 3.84 L Hgb 11.7 D Hct 34.8 L MCV 91 MCH 30.5 MCHC 33.6 RDW 14.6 Plt Count 173 MPV 10.1 Immature Gran % 0.2 Neutrophils % 77.5 Lymphocytes % 11.8 Monocytes % 8.3 Eosinophils % 1.5 Basophils % 0.7 Nucleated RBC % 0.0 Absolute Neutrophils 6.26 Absolute Lymphocytes 0.95 L Absolute Monocytes 0.67 Absolute Eosinophils 0.12 Absolute Basophils 0.06 Sodium 135 L Potassium 5.0 Chloride 101 Carbon Dioxide 25.7 Anion Gap 8.3 BUN 64 H Creatinine 5.6 H* Est GFR (CKD-EPI 2020) 7.43 Glucose 101 Calcium 8.8 Total Bilirubin 0.5 AST 15 ALT 11 L Alkaline Phosphatase 78 Total Protein 6.6 Albumin 3.1 L Urine Color Red Urine Clarity Cloudy Urine pH 6.0 Ur Specific [place] 1.015 Urine Protein 100 H Urine Ketones Negative Urine Blood Large H Urine Nitrite Negative Urine Bilirubin Small H Urine Urobilinogen 0.2 Ur Leukocyte Esterase Negative Urine RBC >50 H Urine WBC Ur Epithelial Cells Urine Crystals Urine Bacteria Urine Mucus Ur Culture Indicated? No Urine Glucose Negative COVID-19 Source SARS-CoV-2 (PCR) 05/20/22 04:09 WBC RBC Hgb Hct MCV MCH MCHC RDW Plt Count MPV Immature Gran % Neutrophils % Lymphocytes % Monocytes % Eosinophils % Basophils % Nucleated RBC % Absolute Neutrophils Absolute Lymphocytes Absolute Monocytes Absolute Eosinophils Absolute Basophils Sodium Potassium Chloride Carbon Dioxide Anion Gap BUN Creatinine Est GFR (CKD-EPI 2020) Glucose Calcium Total Bilirubin AST ALT Alkaline Phosphatase Total Protein Albumin Urine Color Urine Clarity Urine pH Ur Specific [place] Urine Protein Urine Ketones Urine Blood Urine Nitrite Urine Bilirubin Urine Urobilinogen Ur Leukocyte Esterase Urine RBC Urine WBC Ur Epithelial Cells Urine Crystals Urine Bacteria Urine Mucus Ur Culture Indicated? Urine Glucose COVID-19 Source Nasal/Nares SARS-CoV-2 (PCR) Negative
[2022-05-20] MEDS: Tiotropium/Olodaterol 10 PUFF INHALER 2 PUFF IH (09:57)
[2022-05-20] MEDS: PIPERACILLIN/TAZO 2.25 GM in Normal Saline 50 ML IVPB ×2 (10:33→18:03)
[2022-05-20] MEDS: Lactated Ringers 1,000 ML 30 ML IV (11:06)
[2022-05-20] MEDS: Lidocaine 2% Jelly 6 ML SYR (11:26)
--- NOTE | 2022-05-20 11:45 | W.PM.OP ---
Date of service: 05/20/22 Time of Service: 11:45 Operative Note Operative Note DATE OF PROCEDURE: 05/20/22 PRE-OP DIAGNOSIS: Bilateral hydronephrosis POST-OP DIAGNOSIS: same PROCEDURE: cystoscopy with bilateral retrograde pyelograms, insert bilateral ureteral stents SURGEON: Marquise Go ANESTHESIA TYPE: Local By Surgeon and MAC Refer to Anesthesia Record ESTIMATED BLOOD LOSS: 5 PATHOLOGY: none sent COMPLICATIONS: None Patient was transported to: ICU Patient's condition: stable Implants/Explants Operation Date: 05/20/22 11:10 bilateral 7 Brazilian by 22 to 30 cm ureteral stents 16 Brazilian rosario catheter with 10 cc sterile water in balloon Indications: This is a 77-year-old woman who has a history of non-squamous cell carcinoma of the lung. She has been having gross hematuria and was found to have bilateral hydronephrosis on CT urogram. Plans were made for cystoscopy with retrograde pyelograms ureteroscopy and possible biopsies by the providers at [facility]. The procedure was scheduled for next week. In the interim, she presented to our facility with worsening weakness, nausea, anorexia. Her creatinine worsened from 1.07 up to 5.6 mg/dL. A repeat CT scan without contrast confirmed bilateral hydronephrosis. She presents now for stent placement. Findings: Bilateral hydronephrosis Clear urine from right kidney Blood tinged urine from left kidney Bullous nodular mucosal changes posterior bladder wall Procedure Description: Ole was brought to the operating room on 05/20/2022. She was given a dose of preoperative IV antibiotics. After successful induction of monitored anesthesia care, she was placed in the dorsal lithotomy position. Her genitalia was prepped and draped. 2% Xylocaine jelly was instilled into the urethra to act as a local anesthetic. A 22 Brazilian rigid cystoscope was passed through the urethra into the bladder. The bladder was inspected with the 30 degree lens. On the posterior bladder wall, there were mucosal changes that had the appearance of bullous edema. I did not visualize any specific papillary lesions. Each ureteral orifice was identified. I was able to cannulate each orifice with a 6 Brazilian access catheter, but I was unable to advance the catheter initially. I passed a Glidewire through the lumen of the catheter and was then able to advance the catheter into the mid ureter. The wire was removed and a retrograde pyelogram was then obtained by injecting Omnipaque through the access catheter. The ureters were dilated all the way up to the kidneys. I then replaced the wire and removed the access catheter. On each side, I was able to pass a 7 Brazilian variable length stent over the wire. Each stent was positioned with the proximal end curled in the renal pelvis and the distal end curled in the bladder. The positioning of each stent was confirmed both fluoroscopically and cystoscopically. When I initially placed the wire up of the right ureter, clear urine with a hydronephrotic drip was obtained. On the left side, bloody urine was obtained with a hydronephrotic drip. The patient was still anticoagulated and is not a general anesthesia candidate at our facility, so no additional diagnostic measures such as ureteroscopy or biopsy were taken. These additional procedures will need to be done back down at [facility] once her renal function normalizes.
--- NOTE | 2022-05-20 12:07 | NUR.NOTE ---
Nursing Note: Per Patient request called Pt's granddaughter Yolette to let her know that she had returned from surgery.
--- NOTE | 2022-05-20 12:11 | W.ANESPOSTOP ---
Postoperative Evaluation Date, Time and Location Date Performed: 05/20/22 Time Performed: 12:11 Patient Location: Intensive Care Unit Vital Signs Most Recent Imported Vital Signs: Most Recent Vital Signs Temp Pulse Resp BP Pulse Ox 36.3 C L 50 L 17 116/64 97 05/20/22 07:47 05/20/22 12:00 05/20/22 12:01 05/20/22 12:00 05/20/22 12:01 Pain Score Most Recent Pain Score: Most Recent Pain Score Pain Level 0 05/20/22 07:47 Assessment Mental Status: Awake (Alert & Oriented to Patient Baseline) Airway and Respiratory Function: Patent airway with normal (patient baseline) respiratory exam Cardiovascular Function: Hemodynamically Stable Hydration Status: Adequately Hydrated Nausea & Vomiting: No Nausea or Vomiting Pain: Pt. Denies Any Pain Peripheral Nerve Block: Patient did not receive a nerve block
[2022-05-20] MEDS: Omnipaque 240 MG/ML 50 ML BTL IJ (13:02)
--- NOTE | 2022-05-20 13:52 | NUR.NOTE ---
Nursing Note: Pt's daughter Shakira called for an update. Shakira informed that procedure went as planned and pt is resting comfortably at this time.
[2022-05-20] MEDS: Normal Saline Flush 10 ML SYR IVP (18:03)
[2022-05-20] MEDS: dilTIAZem CD 120 MG CAPCR PO (21:21)
[2022-05-20] MEDS: Atorvastatin 40 MG TAB 80 MG PO (21:21)
--- NOTE | 2022-05-20 23:53 | NUR.NOTE ---
Nursing Note: Accepted transfer at 2200 from ICU. Pt settled in bed and rosario flushed with 120ml of NS.
[2022-05-21] VITALS (14 sets, daily range): BP systolic 108–130; BP diastolic 66–78; PULSE 66–125; RESP 16–22; TEMP 35.7–36.9; O2SAT 84–95
[2022-05-21] MEDS: PIPERACILLIN/TAZO 2.25 GM in Normal Saline 50 ML IVPB ×3 (02:05→17:18)
--- NOTE | 2022-05-21 06:38 | PGE_ITS ---
Date of Service Date of service: 05/21/22 Time of Service: 06:38 Assessment and Plan Assessment and plan (1) Bilateral hydronephrosis: Status: Acute Assessment and plan: I would expect that her serum creatinine improves as her kidneys are now clearing. I explained to the patient that she will still need a procedure done [place] at [facility] as we are unable to give her a full general anesthetic here at our facility. I will contact her provider at [facility] and bring them up-to-date with her condition. There may be a change in the scheduling now that her ureteral stents are in place. With no clot retention, the Guardado catheter can be removed if it is no longer needed for I/O measurements. Subjective Subjective Interval history since last seen: The patient feels well with no flank pain. She does have a sensation of needing to void which is not unexpected given the presence of 2 ureteral stents and a Guardado catheter. While her urine has been blood-tinged, she has not had any clot retention. Exam Narrative Exam Narrative: She appears comfortable. The vital signs are documented elsewhere in the chart Her urine is draining pink-tinged urine She has had over 3 liters of urine out since ureteral stents placed yesterday This morning serum creatinine level is pending Objective Last Vital Signs Temp 36.8 C 05/21/22 03:24 Pulse 73 05/21/22 03:24 Resp 18 05/21/22 03:24 BP 115/66 05/21/22 03:24 Pulse Ox 94 05/21/22 03:24
[2022-05-21 07:17] LABS: Abs Immature Grans 0.05 10^3/uL (0.0-0.06); Absolute Basophil Count 0.05 10^3/uL (0.0-0.2); Absolute Eosinophil Count 0.09 10^3/uL (0.0-0.7); Absolute Lymphocyte Count 0.74 10^3/uL (1.2-3.4); Absolute Monocyte Count 0.59 10^3/uL (0.1-0.8); Absolute Neutrophil Count 6.12 10^3/uL (1.2-6.7); Basophils % 0.7; Eosinophils % 1.2; HCT 37.5 % (36.0-46.0); HGB 12.5 g/dL (11.2-15.7); Immature Grans % 0.7; Lymphocytes % 9.7; MCH 30.5 pg (27.0-33.0); MCHC 33.3 % (32.0-36.0); MCV 92 fL (80-95); MPV 10.6 fL (8.0-11.0); Monocytes % 7.7; Platelet Count 197 10^3/uL (130-400); RDW 14.4 % (11.7-14.6); RDW-SD 48.4 fL; WBC 7.64 10^3/uL (4.4-10.8)
[2022-05-21 07:26] LABS: Prothrombin Time 10.2 sec (9.3-11.0)
[2022-05-21 07:33] LABS: Anion Gap 10.8 mmol/L (3-11); BUN 62 mg/dL (7-18); CO2 27.2 mmol/L (21.0-32.0); Chloride 102 mmol/L (98-107); Estimated GFR 10.21 (mL/min/1.73m2); Glucose 92 mg/dL (74-106); Magnesium 1.8 mg/dL (1.8-2.4); Potassium 4.8 mmol/L (3.5-5.1); Sodium 140 mmol/L (136-145)
[2022-05-21 07:39] LABS: CREATININE 4.3 mg/dL (0.55-1.02)
[2022-05-21] MEDS: Tiotropium/Olodaterol 10 PUFF INHALER 2 PUFF IH (08:16)
--- NOTE | 2022-05-21 10:09 | RESPIRATORY ---
Pt would benefit from oxygen with ambulation. Pt refused to use oxygen during her exercise walk test. Pt stated that, No matter what, I'm not taking oxygen home. Pt was advised by RT that her oxygen does in fact drop when she is moving around, and it is recommended that she consider using supplemental O2 at home.
--- NOTE | 2022-05-21 10:48 | PDOC.CMPRO ---
- If Service Date Differs Date of service: 05/21/22 Time of Service: 10:48 Care Management Progress Note S/O: Siomara was lying in bed when CM met with her. She is #1 day s/p ureteral stent placement with [facility] and is feeling well. Siomara walked with RT this morning, and declined supplemental O2 even through her SATS dropped to 84% on RA with activity. Per pt, she is going to defer recommendation for New home O2, if recommended at time of discharge. Per Siomara, she's had Home O2 before and only needed it for 2 weeks, it's expensive and it raises her electricity bill. A: 77 year old female admitted to [facility] on 05/20/22 for Bilateral hydronephrosis, Acute renal failure, Extrinsic ureteral obstruction P: Anticipate, Siomara will discharge home via private vehicle with family when medically ready. She will follow up with her community providers and discharge plan of care as prescribed. [place] O2 may be recommended at time of discharge, anticipate pt will defer. New [facility] RN/PT services will be ordered, if needed. CM will continue to support discharge planning.
--- NOTE | 2022-05-21 14:06 | W.PALLCONSUL ---
Date of service: 05/21/22 Time of Service: 14:06 History of Present Illness Narrative: Siomara was seen in her hospital room, she was alone at the time of the visit. She reports that she is feeling much better. She no longer has low abdominal pressure. She is s/p bilateral ureteral stent placement for bilateral hydronephrosis secondary to retroperitoneal mass. 05/28- scheduled for Bx at [facility], urology will let her know if her appointment is moved up based on this hospital admission. Her weight is down, her appetite is better today. 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 Discussed what she would want/not want if the retroperitoneal mass is found to be cancer. She wants the Bx results and will decide after. She thinks she would be open to radiation, she is not sure she wants to have chemo. She will need to weigh options. She had radiation 3-4 yrs ago for RUL NSCLC. Reviewed AD. Her was her health care agent. She elected to change her agents to her granddaughter, Yolette Mullins and her , Diomedes Mullins. Reviewed CODE status. She is a DNR/DNI. COLST completed. Her granddaughter, Yolette Leonardo is planning to move in with her as well as Yolette's , Diomedes and their 2y.o. child. Assessment and Plan Assessment and plan (1) Bilateral hydronephrosis: Status: Acute (2) Extrinsic ureteral obstruction: Status: Acute (3) Retroperitoneal mass: Status: Acute (4) Gross hematuria: Status: Acute (5) Acute renal failure: Status: Acute (6) Pulmonary emboli: Status: Chronic (7) Aortic mural thrombus: Status: Acute (8) AAA (abdominal aortic aneurysm): Status: Acute (9) NSCLC of right lung: Status: Acute (10) COPD (chronic obstructive pulmonary disease): Status: Chronic (11) Palliative care patient: Status: Acute Assessment and plan: Jessica is a very pleasant 77 y.o. female who is currently admitted to the hospital for bilateral hydronephrosis secondary to retroperitoneal mass, she is s/p bilateral ureteral stent placement by Dr. Go. She was previously scheduled to have Bx at [facility] on 05/31. She also has Hx of COPD and RUL NSCLC and recent PE. Palliative was consulted to discuss goals of care. Discussed CODE status. She is a DNR/DNI, COLST completed. AD updated to name her granddaughter, Yolette Mullins and her , Diomedes Mullins to be her healthcare agents. Yolette Leonardo and Diomedes are moving in with her to help support her at home. In regard to the retroperitoneal mass, she feels that she needs to have bx results and options presented to her before she can state how she would wish to treat it if it is cancerous. She thinks she would be open to radiation, not sure about chemo. She will benefit from f/u with Palliative care. She agrees to f/u, will have office contact her at home. Review of Systems All systems reviewed & are unremarkable except as noted in HPI and below PFSH All Active Problems Gross hematuria (Acute) Aortic mural thrombus (Acute) Retroperitoneal mass (Acute) Anemia (Chronic) Bilateral hydronephrosis (Acute) Acute renal failure (Acute) Extrinsic ureteral obstruction (Acute) AAA (abdominal aortic aneurysm) (Acute) Pulmonary emboli (Chronic) Pneumonia (Acute) Respiratory failure with hypoxia and hypercapnia (Acute) NSCLC of right lung (Acute) Palliative care patient (Acute) Pulmonary hypertension (Acute) Cor pulmonale (Acute) Weakness of both legs (Acute) Hypoxia (Acute) Requires supplemental oxygen (Acute) Hypoxia (Acute) Shortness of breath (Acute) CHF (congestive heart failure) (Chronic) HTN (hypertension) (Chronic) Atrial fibrillation (Chronic) Smoker (Acute) COPD (chronic obstructive pulmonary disease) (Chronic) Medical History Acute and chronic respiratory failure ([id number]) Acute exacerbation of chronic obstructive pulmonary disease Acute exacerbation of congestive heart failure Acute on chronic respiratory failure with hypoxia and hypercapnia Acute respiratory acidosis Acute respiratory failure with hypoxia and hypercapnia LORENE (acute kidney injury) Atrial fibrillation Bilateral hydronephrosis Chronic respiratory failure with hypoxia and hypercapnia COPD (chronic obstructive pulmonary disease) Hemoptysis HTN (hypertension) Hydronephrosis Hydronephrosis Hypercholesteremia Lung cancer Lung mass Pulmonary hypertension Smoker Surgical History S/P appendectomy S/P cholecystectomy S/P hysterectomy Family History Father Hemochromatosis Cirrhosis due to hemochromatosis Diabetes Daughter Heart disease [place] in 40s Social History Smoking/Tobacco Use Status: Current-Occasional Tobacco Type: cigarettes Years smoked: 50 Quit status: considering quitting Counseling given: patient declined Smoking risk assessment performed?: Yes Alcohol Intake: never Drug use: Never Substance use type: does not use What type of physical activity do you participate in: none Do you feel safe at home: Yes Do you feel safe in your relationship?: Yes Additional Social history: lives alone, but a lot of family in the area. of lung cancer Exam Narrative Exam Narrative: General: very pleasant, chronically ill appearing female, sitting up in bed, she is awake and alert, talkative. She answers questions appropriately. HEENT: normocephalic, atraumatic, EOMI, +telangiectasias on cheeks and nose. Neck: supple, no JVD. Respiratory: respirations appear even and unlabored at rest. : rosario draining bloody urine. Extremities: moves all 4 extremities freely, no edema. Results Last Vital Signs Temp 36.9 C 05/21/22 11:13 Pulse 74 05/21/22 11:13 Resp 16 05/21/22 11:13 BP 108/66 05/21/22 11:13 Pulse Ox 93 05/21/22 11:13 Labs Result diagrams: 05/21/22 06:30 05/21/22 06:30 Labs: Laboratory Results - last 24 hr 05/21/22 05/21/22 05/21/22 06:30 06:30 06:30 WBC 7.64 RBC 4.10 Hgb 12.5 Hct 37.5 MCV 92 MCH 30.5 MCHC 33.3 RDW 14.4 Plt Count 197 MPV 10.6 Immature Gran % 0.7 Neutrophils % 80.0 Lymphocytes % 9.7 Monocytes % 7.7 Eosinophils % 1.2 Basophils % 0.7 Nucleated RBC % 0.0 Absolute Neutrophils 6.12 Absolute Lymphocytes 0.74 L Absolute Monocytes 0.59 Absolute Eosinophils 0.09 Absolute Basophils 0.05 PT 10.2 INR 1.0 Sodium 140 Potassium 4.8 Chloride 102 Carbon Dioxide 27.2 Anion Gap 10.8 BUN 62 H Creatinine 4.3 H* Est GFR (CKD-EPI 2020) 10.21 Glucose 92 Calcium 9.0 Magnesium 1.8
--- NOTE | 2022-05-21 14:23 | W.NUTCONSULT ---
Date of service: 05/21/22 Time of Service: 14:23 Nutritional Consult ASSESSMENT: Pt asleep at time of visit. Siomara was admitted with LORENE, s/p uretal stenting. PMH: CHF, COPD, HTN. BMI low for age, significant weight loss noted in last 30 days. Diet changed from Heart Healthy to Regular for increased high calorie options. PO intake has been suboptimal since admit. At nutritional risk in view of 6% weight loss in last 30 days. Estimated Needs: 8355-9479 kcal, 55-65 g protein, 1500 ml fluid NUTRITIONAL DIAGNOSIS: moderate malnutrition in view of low BMI and significant weight loss in last 30 days INTERVENTION: Diet changed to Regular for increased options. Will provide ensure supplementation as needed MONITORING AND EVALUATION: wt, po intake, labs Time Spent in Nutritional Counseling and Treatment: 0
[2022-05-21 14:58] LABS: Albumin, Urine % 25.5 %; Albumin, Urine mg/dL 44 mg/dL; Globulins, Urine % 74.5 %; Globulins, Urine mg/dL 127 mg/dL; Total Protein Urine 171 mg/dL (See Note)
--- NOTE | 2022-05-21 19:03 | PGE_ITS ---
Date of Service Date of service: 05/21/22 Time of Service: 17:50 Assessment and Plan Assessment and plan (1) Acute renal failure: Status: Acute Assessment and plan: Obstructive due to extrinsic compression by an unclear entity, possibly a malignancy, possibly fibrosis, s/p cysto/B ureteral stents 05/20/22 with improvement of Cr. Keep rosario in, given some clot retention today. Continue to monitor UOP. Recheck Cr in am. Needs to follow up with urology at [facility]. (2) Bilateral hydronephrosis: Status: Acute Assessment and plan: as above (3) Extrinsic ureteral obstruction: Status: Acute Assessment and plan: As above (4) Pulmonary emboli: Status: Chronic Assessment and plan: - Xarelto remains on hold - would resume tomorrow if hematuria permits - would need to be renally dosed. (5) Pulmonary hypertension: Status: Chronic Assessment and plan: Chronic, making the patient too high risk for anesthesia at our facility. The patient does require oxygen on ambulation, but refuses it primarily due to cost concerns. Seen by palliative care and signed a COLST form. (6) COPD (chronic obstructive pulmonary disease): Status: Chronic Assessment and plan: Continue Stiolto, bronchodilators. (7) Anemia: Status: Chronic Assessment and plan: Hgb actually better than yesterday, despite hematuria. Continue to monitor. (8) Retroperitoneal mass: Status: Acute Assessment and plan: -will need cytology - will attempt to order this here. -Also checking CA125 and CEA. -IgG4 pending (9) AAA (abdominal aortic aneurysm): Status: Chronic Assessment and plan: F/u as outpatient (10) Aortic mural thrombus: Status: Chronic Assessment and plan: F/u as outpatient. (11) DVT prophylaxis: Status: Acute Assessment and plan: SCDs (12) Discharge planning issues: Status: Acute Assessment and plan: DNR/DNI as discussed with palliative care - COLST form filled out Possible discharge home tomorrow. Subjective Subjective Interval history since last seen: Siomara states she is feeling better. She does state that the catheter hurts. There have been some clots in her rosario catheter today which did obstruct the catheter. She denies dizziness, chest pain, shortness of breath, nausea. Requires oxygen on ambulation by refuses it. Met with palliative care and signed a COLST form. Exam Narrative Exam Narrative: General: Pleasant elderly female who is A&Ox3, NAD, on RA HEENT: EOMI, MMM Heart: irregularly irregular rhythm Lungs: CTAB Abdomen: soft, nontender, nondistended : has a rosario with babcock red urine Extremities: no edema BLEs Objective Last Vital Signs Temp 36.6 C 05/21/22 15:48 Pulse 74 05/21/22 15:48 Resp 20 05/21/22 15:48 BP 124/71 05/21/22 15:48 Pulse Ox 90 L 05/21/22 15:48 Laboratory Results - last 24 hr 05/20/22 05/21/22 05/21/22 01:20 06:30 06:30 WBC 7.64 RBC 4.10 Hgb 12.5 Hct 37.5 MCV 92 MCH 30.5 MCHC 33.3 RDW 14.4 Plt Count 197 MPV 10.6 Immature Gran % 0.7 Neutrophils % 80.0 Lymphocytes % 9.7 Monocytes % 7.7 Eosinophils % 1.2 Basophils % 0.7 Nucleated RBC % 0.0 Absolute Neutrophils 6.12 Absolute Lymphocytes 0.74 L Absolute Monocytes 0.59 Absolute Eosinophils 0.09 Absolute Basophils 0.05 PT INR Sodium 140 Potassium 4.8 Chloride 102 Carbon Dioxide 27.2 Anion Gap 10.8 BUN 62 H Creatinine 4.3 H* Est GFR (CKD-EPI 2020) 10.21 Glucose 92 Calcium 9.0 Magnesium 1.8 Ur Random Albumin % 25.5 U Random Total Protein 171 Urine Albumin (PEP) 44 Urine Globulin EP 127 U Random Gamma Glob % 74.5 U PEP M-Ben Not Applicable U PEP M-Ben % Not Applicable Urine Random PEP Note See Comment Urine Immunofixation SEE BELOW 05/21/22 06:30 WBC RBC Hgb Hct MCV MCH MCHC RDW Plt Count MPV Immature Gran % Neutrophils % Lymphocytes % Monocytes % Eosinophils % Basophils % Nucleated RBC % Absolute Neutrophils Absolute Lymphocytes Absolute Monocytes Absolute Eosinophils Absolute Basophils PT 10.2 INR 1.0 Sodium Potassium Chloride Carbon Dioxide Anion Gap BUN Creatinine Est GFR (CKD-EPI 2020) Glucose Calcium Magnesium Ur Random Albumin % U Random Total Protein Urine Albumin (PEP) Urine Globulin EP U Random Gamma Glob % U PEP M-Ben U PEP M-Ben % Urine Random PEP Note Urine Immunofixation
[2022-05-21] MEDS: guaiFENesin 600 MG TABCR PO (19:27)
[2022-05-21] MEDS: Atorvastatin 40 MG TAB 80 MG PO (19:27)
[2022-05-21 20:43] LABS: CEA 5.8 ng/mL (See Note)
[2022-05-21] MEDS: Acetaminophen 325 MG TAB 650 MG PO (23:13)
[2022-05-21] MEDS: dilTIAZem CD 120 MG CAPCR PO (23:14)
[2022-05-22] MEDS: PIPERACILLIN/TAZO 2.25 GM in Normal Saline 50 ML IVPB (02:01)
[2022-05-22 02:03] VITALS: BP 112/70; PULSE 82; RESP 16; TEMP 36.5; O2SAT 92
--- NOTE | 2022-05-22 06:26 | PAPNONF_PTH ---
PATIENT: Siomara Quinones LOC: [place] [facility]#:[id number] AGE/SX: 77/F ROOM: RE05/20/[address]: Patrick Sabillon : 1945 BED: A DIS: 05/22/2022 SPEC #: [id number] RECD: 05/24/22 13:16 STATUS: OLIVIA REEstefania #: [id number] HODA: 05/22/22 06:[address]: Patrick Sabillon DEPT: [facility] Cytology RECD BY: Malissa Waldron ENTERED: 05/24/22 13:17 SP TYPE: KEGEAN GARCIA DR: MD Marcial Leong John Tissues: 1 - BODY FLUID CYTO(SPUTUM/URINE)[facility] Procedures: BODY FLUID CYTO(URINE/SPUTUM) Comments: [id number] (TOTAL VOLUME = 50 ml) (50 ml URINE & 50 ml CYTOLYT)
[2022-05-22] MEDS: Tiotropium/Olodaterol 10 PUFF INHALER 2 PUFF IH (07:40)
[2022-05-22 08:00] VITALS: BP 99/65; PULSE 67; PULSE 73; RESP 16; TEMP 36.3; O2SAT 93
[2022-05-22 09:20] LABS: Anion Gap 6.3 mmol/L (3-11); BUN 60 mg/dL (7-18); CO2 31.7 mmol/L (21.0-32.0); Calcium 8.8 mg/dL (8.5-10.1); Chloride 95 mmol/L (98-107); Estimated GFR 15.72 (mL/min/1.73m2); Glucose 132 mg/dL (74-106); Sodium 133 mmol/L (136-145)
[2022-05-22 10:14] LABS: Abs Immature Grans 0.02 10^3/uL (0.0-0.06); Absolute Basophil Count 0.07 10^3/uL (0.0-0.2); Absolute Eosinophil Count 0.14 10^3/uL (0.0-0.7); Absolute Lymphocyte Count 0.57 10^3/uL (1.2-3.4); Absolute Monocyte Count 0.48 10^3/uL (0.1-0.8); Absolute Neutrophil Count 6.93 10^3/uL (1.2-6.7); Basophils % 0.9; Eosinophils % 1.7; HCT 37.6 % (36.0-46.0); HGB 12.7 g/dL (11.2-15.7); Immature Grans % 0.2; Lymphocytes % 6.9; MCH 30.8 pg (27.0-33.0); MCHC 33.8 % (32.0-36.0); MCV 91 fL (80-95); MPV 10.3 fL (8.0-11.0); Monocytes % 5.8; Neutrophils % 84.5; Platelet Count 205 10^3/uL (130-400); RBC 4.13 10^6/uL (3.93-5.22); RDW 14.5 % (11.7-14.6); RDW-SD 48.4 fL; WBC 8.21 10^3/uL (4.4-10.8)
--- NOTE | 2022-05-22 11:25 | DSE_ITS ---
Date of service: 05/22/22 Time of Service: 11:25 DS: Diagnosis Discharge Diagnosis (1) Acute renal failure: Status: Acute (2) Bilateral hydronephrosis: Status: Acute (3) Extrinsic ureteral obstruction: Status: Acute (4) Pulmonary emboli: Status: Chronic (5) Pulmonary hypertension: Status: Chronic (6) COPD (chronic obstructive pulmonary disease): Status: Chronic (7) Anemia: Status: Chronic (8) Retroperitoneal mass: Status: Acute (9) AAA (abdominal aortic aneurysm): Status: Chronic (10) Aortic mural thrombus: Status: Chronic Discharge Plan Disposition Patient Disposition: HOME W/HOME HEALTH SERVICE Condition: Stable Discharge Details Reason For Visit: Hydronephrosis, LORENE Admit Date/Time: 05/20/22 05:15 Admit Provider: Patrick Sabillon Attending Provider: Patrick Sabillon Primary Care Provider: Sherwin Ceja [facility] Course: This is a 77 year old female with history of right upper lobe NSCLC, recent PE on xarelto, COPD with history of tobacco abuse who presented to the ED with acute renal failure obstructive in etiology and largely due to extrinsic compression from this retroperitoneal fibrosis versus mass versus confluent adenopathy that has worsened since prior imaging in March. Her creatinine has acutely worsened since her April labs at [facility]. She is still producing urine but it does seem as though she more urgently needs stenting to relieve the obstruction than previously planned as an outpatient. Transfer to [facility] was refused overnight despite her being established there and planned for procedure. she was admitted here under hospitalist services with urology consulted. She was brought to the OR for bilateral STENT placement on May 20. She was observed overnight for hematuria, which is essential unchanged since prior to admission. she had no fever and remained hemodynamically stable. Her H&H remained stable and was 12.7/37.6 at discharge. Plan is discharge to home with home health services and resumption of her xarelto. she should be monitored closely for blood loss anemia. discussed with DR Haskins. Home Meds and New Rx's Prescriptions: Continued Xarelto 20 mg tablet 20 mg PO QPM Qty: 30 11RF Rx Instructions: must administer with evening meal diltiazem HCl 120 mg capsule,extended release 24hr 120 mg PO HS atorvastatin [Lipitor] 80 mg Tablet 80 mg PO QPM albuterol sulfate [ProAir HFA] 90 mcg/actuation Hfa Aerosol Inhaler 2 puff INHALATION QID PRN ipratropium-albuterol 0.5 mg-3 mg(2.5 mg base)/3 mL Solution For Nebulization 3 ml UPD Q6H PRN PRN (Reason: shortness of breath or wheezing) Qty: 180 0RF Inhaler, Assist Devices [Pocket Chamber] 1 ea miscellaneous DIRECTED Qty: 0 0RF Stiolto Respimat 2.5-2.5 mcg/actuation mist 2 spray INHALATION DAILY Label Comments: Inhale 2 puff as directed once a day guaifenesin 600 mg tablet extended release 12hr 600 mg PO BID PRN Discharge Instructions Instructions: Rosario Catheter Placement and Care (DC), Acute Urinary Retention in Women (ED), Urinary Leg Bag (GEN), How to Change a Catheter Drainage Bag (DC) Additional Instructions: notify your doctor immediately for abdominal pain, no urine draining from your rosario, fevers, worsening blood from rosario, lightheadedness or concerns. keep follow up appointment as scheduled. Stand Alone Forms: Nursing Discharge Form Referrals: Sherwin Ceja [Primary Care Provider] - (PLEASE CALL TUESDAY FOR FOLLOW UP APPOINTMENT) Activity:: Activity as Tolerated Equipment/Supplies:: No Equipment Needed Diet:: As Tolerated Discharge Orders Discharge Orders: Discharge Order (Routine); Ordered 05/22/22 Ordered By: Tanesha Corral Other Ambulatory Orders: Basic Metabolic Panel (Routine) Timeframe: 20220524 Location: None Selected Ordered By: Tanesha Corral Complete Blood Count w/Diff (Routine) Timeframe: 20220524 Location: None Selected Ordered By: Tanesha Corral Discharge Data Discharge Date/Time-TO BE ENTERED AT DEPARTURE: 05/22/22 12:11 DS: Summary Time Spent with Patient providing and/or coordinating discharge services: Greater than 30 minutes Status at Discharge Functional status at discharge: independent ambulation Overall status at discharge: patient is not back to baseline Mental Status: mental status grossly normal Speech and Movement: speech and movement normal Mood: congruent mood Affect: normal affect Exam Const General: cooperative and no acute distress HENMT Mouth: moist mucous membranes Eyes Conjunctivae: normal conjunctivae Sclera: normal sclerae Neck Neck: trachea midline Resp Auscultation: clear to auscultation bilaterally Cardio Rate: regular rate and not tachycardic Rhythm: regular rhythm GI Palpation: soft, no guarding and no masses Skin General skin exam: no rashes or lesions noted Neuro General: patient alert, patient awake, patient oriented x3 and tone normal Extrem General: no edema Psych Appearance: grossly normal Mental Status: mental status grossly normal Speech and Movement: speech and movement normal Mood: congruent mood Affect: normal affect DS: Data Vitals/I&O Vitals and I&O: Vital Signs Temperature 36.3 C L 05/22/22 08:00 Temperature Source Tympanic 05/22/22 08:00 Pulse 67 05/22/22 08:00 Pulse Rhythm Irregular 05/22/22 02:00 Pulse 74 05/20/22 20:00 Respiratory Rate 16 05/22/22 08:00 Respiratory Effort Non-Labored 05/22/22 02:00 Respiratory Depth Normal 05/22/22 02:00 Respiratory Pattern Normal 05/22/22 02:00 Blood Pressure 99/65 L 05/22/22 08:00 Blood Pressure Mean 79 05/20/22 20:00 Blood Pressure Position Supine 05/20/22 07:47 Pulse Oximetry 93 05/22/22 08:00 Oxygen Delivery Method Room Air 05/22/22 08:00 Oxygen Flow Rate 0 05/22/22 08:00 Pain Level 0 05/22/22 08:00 Comment 05/21/22 23:00 Intake & Output 05/21/22 05/21/22 05/22/22 11:59 23:59 11:59 Intake Total 540 / 1190 650 / 1190 50 / 50 Output Total 1350 / 3750 2400 / 3750 1025 / 1025 Balance -810 / -2560 -1750 / -2560 -975 / -975 Weight 50.8 kg 51.2 kg Intake: IV 100 / 150 50 / 150 50 / 50 Oral 440 / 1040 600 / 1040 Output: Urine 1350 / 3750 2400 / 3750 1025 / 1025 Other: Urine Color Fritz Dark Red Fritz Urine Appearance Hematuria Clear Clear Hematuria Hematuria Clots Clots Comment RN requested to get a bladder scan, scanned three times and got Zero all three times. Stool Size Small Stool Characteristics Hard Brown Data Completed and Pending Labs on day of discharge: Labs from last 24 hours 05/22/22 05/22/22 05/21/22 09:00 09:00 06:30 WBC 8.21 RBC 4.13 Hgb 12.7 Hct 37.6 MCV 91 MCH 30.8 MCHC 33.8 RDW 14.5 Plt Count 205 MPV 10.3 Immature Gran % 0.2 Neutrophils % 84.5 Lymphocytes % 6.9 Monocytes % 5.8 Eosinophils % 1.7 Basophils % 0.9 Nucleated RBC % 0.0 Absolute Neutrophils 6.93 H Absolute Lymphocytes 0.57 L Absolute Monocytes 0.48 Absolute Eosinophils 0.14 Absolute Basophils 0.07 Sodium 133 L Potassium 4.0 Chloride 95 L Carbon Dioxide 31.7 Anion Gap 6.3 BUN 60 H Creatinine 3.0 H D Est GFR (CKD-EPI 2020) 15.72 Glucose 132 H Calcium 8.8 Carcinoembryonic Ag 5.8 Ur Random Albumin % U Random Total Protein Urine Albumin (PEP) Urine Globulin EP U Random Gamma Glob % U PEP M-Ben U PEP M-Ben % Urine Random PEP Note Urine Immunofixation 05/20/22 01:20 WBC RBC Hgb Hct MCV MCH MCHC RDW Plt Count MPV Immature Gran % Neutrophils % Lymphocytes % Monocytes % Eosinophils % Basophils % Nucleated RBC % Absolute Neutrophils Absolute Lymphocytes Absolute Monocytes Absolute Eosinophils Absolute Basophils Sodium Potassium Chloride Carbon Dioxide Anion Gap BUN Creatinine Est GFR (CKD-EPI 2020) Glucose Calcium Carcinoembryonic Ag Ur Random Albumin % 25.5 U Random Total Protein 171 Urine Albumin (PEP) 44 Urine Globulin EP 127 U Random Gamma Glob % 74.5 U PEP M-Ben Not Applicable U PEP M-Bne % Not Applicable Urine Random PEP Note See Comment Urine Immunofixation SEE BELOW PFSH All Active Problems (Updated 05/21/22 @ 19:17 by Eneida Sahu MD) Discharge planning issues (Acute) DVT prophylaxis (Acute) Gross hematuria (Acute) 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) Anemia (Chronic) Bilateral hydronephrosis (Acute) Acute renal failure (Acute) Extrinsic ureteral obstruction (Acute) AAA (abdominal aortic aneurysm) (Chronic) Pulmonary emboli (Chronic) Pneumonia (Acute) Respiratory failure with hypoxia and hypercapnia (Acute) NSCLC of right lung (Acute) Palliative care patient (Acute) Pulmonary hypertension (Chronic) Cor pulmonale (Acute) Weakness of both legs (Acute) Hypoxia (Acute) Requires supplemental oxygen (Acute) Hypoxia (Acute) Shortness of breath (Acute) CHF (congestive heart failure) (Chronic) HTN (hypertension) (Chronic) Atrial fibrillation (Chronic) Smoker (Acute) COPD (chronic obstructive pulmonary disease) (Chronic) Medical History Acute and chronic respiratory failure ([id number]) Acute exacerbation of chronic obstructive pulmonary disease Acute exacerbation of congestive heart failure Acute on chronic respiratory failure with hypoxia and hypercapnia Acute respiratory acidosis Acute respiratory failure with hypoxia and hypercapnia LORENE (acute kidney injury) Atrial fibrillation Bilateral hydronephrosis Chronic respiratory failure with hypoxia and hypercapnia COPD (chronic obstructive pulmonary disease) Hemoptysis HTN (hypertension) Hydronephrosis Hydronephrosis Hypercholesteremia Lung cancer Lung mass Pulmonary hypertension Smoker Surgical History S/P appendectomy S/P cholecystectomy S/P hysterectomy Family History Father Hemochromatosis Cirrhosis due to hemochromatosis Diabetes Daughter Heart disease [place] in 40s Social History Smoking/Tobacco Use Status: Current-Occasional Tobacco Type: cigarettes Years smoked: 50 Quit status: considering quitting Counseling given: patient declined Smoking risk assessment performed?: Yes Alcohol Intake: never Drug use: Never Substance use type: does not use What type of physical activity do you participate in: none Do you feel safe at home: Yes Do you feel safe in your relationship?: Yes Additional Social history: lives alone, but a lot of family in the area. of lung cancer
--- NOTE | 2022-05-22 11:30 | PDOC.HHF2F ---
Home Health Certification Home Health Certification: 1. Encounter Date and Reason I certify that Siomara Quinones was seen by Tanesha Corral on 05/22/22 and that I had a [id number] encounter with this patient that meets the physician face to face encounter requirements. 2. Clinical Findings Supporting Skilled Need and Homebound Status I certify that home health services are medically necessary, include either intermittent penitentiary and/or physical/speech therapy, and that this patient is homebound in that absences from the home require considerable and taxing effort and are infrequent or of short duration, or are attributable to the need to receive medical care. [X] (a) Attached documentation from encounter provides clinical findings supporting skilled need and homebound status (including what assistance patient requires to leave the home). The encounter with the patient was in whole, or in part, for the following medical condition, which is the primary reason for home health care: Hydronephrosis, LORENE Custodial: needed to monitor symptoms of hematuria and with symptomatic blood loss. rosario catheter management and teaching. Homebound: patient is unable to safely leave the house unattended d/t limited ambulation 3. Certification and Authentication I certify that I composed the above information based on my clinical judgement relating to this patient's medical condition and, if applicable, clinical findings communicated to me by the NPP or inpatient physician who performed the Home Health Referral. All further orders will be obtained through _Sherwin Ceja MD_(Community Based Physician - PCP)
[2022-05-24 08:43] LABS: CA 125 65 U/mL (<30)
[2022-05-24 11:38] LABS: Immunoglobulin Subclass IgG4 21.6 mg/dL
== END 2022-05-22 12:11 | disposition home health service (06) | DRG 683 ==
LOC: ER 06:05 → ICU 06:41 → MS 21:56
PROVIDERS: Family Medicine; Internal Medicine; Nurse Practitioner Acute Care; Student in an Organized Health Care Education/Training Program; Urology; Admitting Provider Family Medicine; Emergency Provider Student in an Organized Health Care Education/Training Program; PCP Family Medicine; Visit Provider Family Medicine
PROC: 0T9880Z Drainage of Bilateral Ureters with Drainage Device, Via Natural or Artificial Opening Endoscopic (ICD-10-PCS; CPT 52332; principal; 2022-05-20 11:00)
DX: N17.9 Acute kidney failure, unspecified (principal); I27.82 Chronic pulmonary embolism; I74.19 Embolism and thrombosis of other parts of aorta; N13.1 Hydronephrosis with ureteral stricture, not elsewhere classified; I27.20 Pulmonary hypertension, unspecified; J44.9 Chronic obstructive pulmonary disease, unspecified; I71.4 Abdominal aortic aneurysm, without rupture; D64.9 Anemia, unspecified; I50.9 Heart failure, unspecified; F17.210 Nicotine dependence, cigarettes, uncomplicated; I11.0 Hypertensive heart disease with heart failure; I48.91 Unspecified atrial fibrillation; R19.09 Other intra-abdominal and pelvic swelling, mass and lump; Z66 Do not resuscitate; Z85.118 Personal history of other malignant neoplasm of bronchus and lung; R31.0 Gross hematuria; Z79.01 Long term (current) use of anticoagulants
CPT/HCPCS: 52332; 36415; 80048; 80053; 82787; 84156; 84166; 86304; 86335; 87635; 94618; 94640; 96361; 96365; 99222; 99232; 99285; 74176; 74420; 81003; 81015; 82378; 83735; 85025; 85610; 88104; 94667; 99217; 99223; 99238; G0378; J2250; J2405; J2543; J3010; Q9967

== ENCOUNTER 2022-06-15 18:13 | Outpatient (REF) | payer MEDICARE, SELFPAY ==
[2022-06-15 18:42] LABS: Abs Immature Grans 0.08 10^3/uL (0.0-0.06); Absolute Basophil Count 0.03 10^3/uL (0.0-0.2); Absolute Lymphocyte Count 0.21 10^3/uL (1.2-3.4); Absolute Monocyte Count 0.85 10^3/uL (0.1-0.8); Basophils % 0.2; HCT 30.3 % (36.0-46.0); HGB 10.3 g/dL (11.2-15.7); Immature Grans % 0.6; Lymphocytes % 1.7; MCH 30.7 pg (27.0-33.0); MCV 90 fL (80-95); MPV 11.3 fL (8.0-11.0); Monocytes % 6.7; Neutrophils % 90.8; Platelet Count 227 10^3/uL (130-400); RBC 3.35 10^6/uL (3.93-5.22); RDW 14.9 % (11.7-14.6); RDW-SD 49.9 fL; WBC 12.64 10^3/uL (4.4-10.8)
[2022-06-15 18:47] LABS: Absolute Neutrophil Count 11.48 10^3/uL (1.2-6.7)
[2022-06-15 19:07] LABS: ALT 31 U/L (14-59); AST 29 U/L (15-37); Albumin 2.5 g/dL (3.4-5.0); Alkaline Phosphatase 99 U/L (46-116); Anion Gap 6.3 mmol/L (3-11); BUN 62 mg/dL (7-18); Bilirubin, Total 0.3 mg/dL (0.2-1.0); CO2 30.7 mmol/L (21.0-32.0); CREATININE 1.7 mg/dL (0.55-1.02); Calcium 9.3 mg/dL (8.5-10.1); Chloride 95 mmol/L (98-107); Estimated GFR 31.08 (mL/min/1.73m2); Glucose 133 mg/dL (74-106); Potassium 3.9 mmol/L (3.5-5.1); Sodium 132 mmol/L (136-145); Total Protein 6.2 g/dL (6.4-8.2)
== END 2022-06-15 18:14 | disposition home or self-care (01) ==
LOC: NCHCN 18:13
PROVIDERS: PCP Family Medicine; Visit Provider Family Medicine
DX: N13.9 Obstructive and reflux uropathy, unspecified (principal); R53.83 Other fatigue; R10.30 Lower abdominal pain, unspecified
CPT/HCPCS: 80053; 85025

== ENCOUNTER 2022-06-28 11:50 | Inpatient (IN) | payer MEDICARE, SELFPAY ==
[2022-06-28] VITALS (27 sets, daily range): BP systolic 90–126; BP diastolic 54–74; PULSE 76–108; RESP 4–39; TEMP 36.3–36.8; O2SAT 44–99
--- NOTE | 2022-06-28 12:15 | DI.RAD_ITS ---
Exam(s) XR CHEST 2V PA LATERAL EXAM: XR CHEST 2V PA LATERAL CLINICAL HISTORY: weakness TECHNIQUE: 2D digital imaging was performed of the chest. Two images were obtained. PA and lateral views were obtained. COMPARISON: CR,XR XR CHEST 2V PA LATERAL from 08/19/2021 CR XR PORTABLE CHEST AP from 03/19/[address] RENAL COLIC WO from 05/20/2022 FINDINGS: MEDIASTINUM: Normal. HEART: Normal. PULMONARY VASCULATURE: Normal. LUNGS: There is an infiltrate in the left lower lobe. PLEURAL SPACE: There is a small left pleural effusion. BONE:Within normal limits for the patient's age. OTHER FINDINGS:Normal. IMPRESSION: Left basilar infiltrate which may represent pneumonia. Small left pleural effusion. DATA REPOSITORY: RADIATION DOSE DELIVERED:
--- NOTE | 2022-06-28 12:15 | RT.EKG_ITS ---
APPROVED REPORT Exam: Resting ECG Reason for Exam: weakness Patient Location: E HR:81 bpm ECG Measurements Heart Rate 81 AXIS OH [id number] P [id number] QRSd 69 QRS 18 QT 353 T 10 QTc 410 Conclusion Atrial fibrillation...V-rate 66- 97, irreg A-activity Low voltage, extremity leads...all extremity leads <0.5mV Anteroseptal infarct, old...Q >40mS, V1-V2 no STEMI, non-diagnostic EKG I have reviewed and interpreted ECG and agree with software generated interpretation.
--- NOTE | 2022-06-28 12:19 | ED.GENADUL_ITS ---
Discharge Plan Disposition Patient Disposition: STILL A PATIENT Condition: Stable Discharge Details Chief Complaint: GenMedical Clinical Impression: Weakness, Pneumonia Primary Care Provider: Sherwin Ceja ED Provider: Clinton Martinez Home Meds and New Rx's Prescriptions: No Action Xarelto 20 mg tablet 20 mg PO QPM Qty: 30 11RF Rx Instructions: must administer with evening meal diltiazem HCl 120 mg capsule,extended release 24hr 120 mg PO HS atorvastatin [Lipitor] 80 mg Tablet 80 mg PO QPM albuterol sulfate [ProAir HFA] 90 mcg/actuation Hfa Aerosol Inhaler 2 puff INHALATION QID PRN ipratropium-albuterol 0.5 mg-3 mg(2.5 mg base)/3 mL Solution For Nebulization 3 ml UPD Q6H PRN PRN (Reason: shortness of breath or wheezing) Qty: 180 0RF Inhaler, Assist Devices [Pocket Chamber] 1 ea miscellaneous DIRECTED Qty: 0 0RF Stiolto Respimat 2.5-2.5 mcg/actuation mist 2 spray INHALATION DAILY Label Comments: Inhale 2 puff as directed once a day guaifenesin 600 mg tablet extended release 12hr 600 mg PO BID PRN Medical Decision Making 77-year-old female with a past medical history that includes renal sufficiency, COPD, hypertension, CHF, A. fib, anticoagulated, pulmonary hypertension, former smoker, presents for generalized weakness, decreased p.o. intake over the past few weeks. Clinically she appears dry. EMS noted that she was hypotensive. She is mentating without difficulty. Plan is to obtain routine screening laboratory values, give 2 L IV fluid and reassess the situation. Laboratory values reveal a white blood cell count of 15.09, hemoglobin 10.2 hematocrit 31.4 platelet 221 lactate of 0.9 sodium 138 potassium 5.3 anion gap 4.8 BUN 109, creatinine 2.3 magnesium 2.2 troponin less than 50 COVID-negative Given the leukocytosis, will obtain blood cultures. Awaiting chest x-ray and urinalysis. Clinically patient appears dry. Blood pressures improving with IV IV fluid, 115/74. Chest x-ray reveals a small left pleural effusion. Left basilar infiltrate which may represent pneumonia. Patient to receive another liter of IV fluid and will repeat CBC and CMP. Awaiting urinalysis and blood cultures to initiate antibiotics. This documentation was generated using [employer] system, please disregard any oddities of phrase or misspellings. Medical Records Medical records reviewed: Yes I reviewed the patient's medical records. Imaging Data Radiologic Study: Attestation: I personally reviewed and interpreted this imaging study as follows: Imaging: X-Ray Radiologist's impression: Exam(s) XR CHEST 2V PA LATERAL EXAM: XR CHEST 2V PA LATERAL CLINICAL HISTORY: weakness TECHNIQUE: 2D digital imaging was performed of the chest. Two images were obtained. PA and lateral views were obtained. COMPARISON: CR,XR XR CHEST 2V PA LATERAL from 08/19/2021 CR XR PORTABLE CHEST AP from 03/19/[address] RENAL COLIC WO from 05/20/2022 FINDINGS: MEDIASTINUM: Normal. HEART: Normal. PULMONARY VASCULATURE: Normal. LUNGS: There is an infiltrate in the left lower lobe. PLEURAL SPACE: There is a small left pleural effusion. BONE:Within normal limits for the patient's age. OTHER FINDINGS:Normal. IMPRESSION: Left basilar infiltrate which may represent pneumonia. Small left pleural effusion. Lab Data Lab results reviewed: Yes I reviewed the patient's lab results. Labs: 06/28/22 15:30 Blood Blood Culture - Pending 06/28/22 15:25 Blood Blood Culture - Pending Laboratory Tests Range/Units 06/28/22 06/28/22 06/28/22 12:35 12:35 12:35 WBC (4.4-10.8) 10^3/uL 15.09 H RBC (3.93-5.22) 10^6/uL 3.47 L Hgb (11.2-15.7) g/dL 10.2 L Hct (36.0-46.0) % 31.4 L MCV (80-95) fL 91 MCH (27.0-33.0) pg 29.4 MCHC (32.0-36.0) % 32.5 RDW (11.7-14.6) % 15.3 H Plt Count (130-400) 10^3/uL 221 MPV (8.0-11.0) fL 11.1 H Immature Gran % 0.7 Neutrophils % 92.0 Lymphocytes % 2.5 Monocytes % 4.6 Eosinophils % 0.1 Basophils % 0.1 Nucleated RBC % (0.0-0.3) % 0.0 Absolute Neutrophils (1.2-6.7) 10^3/uL 13.88 H Absolute Lymphocytes (1.2-3.4) 10^3/uL 0.38 L Absolute Monocytes (0.1-0.8) 10^3/uL 0.69 Absolute Eosinophils (0.0-0.7) 10^3/uL 0.02 Absolute Basophils (0.0-0.2) 10^3/uL 0.02 PT (9.3-11.0) sec 11.6 H INR (0.9-1.1) 1.2 H APTT (21.0-27.5) sec 24.4 VBG Lactate (0.6-1.4) mmol/L Sodium (136-145) mmol/L 138 Potassium (3.5-5.1) mmol/L 5.3 H Chloride (98-107) mmol/L 101 Carbon Dioxide (21.0-32.0) mmol/L 32.2 H Anion Gap (3-11) mmol/L 4.8 BUN (7-18) mg/dL 109 H* Creatinine (0.55-1.02) mg/dL 2.3 H Est GFR (CKD-EPI 2020) (mL/min/1.73m2) 21.62 Glucose (74-106) mg/dL 147 H Calcium (8.5-10.1) mg/dL 8.8 Magnesium (1.8-2.4) mg/dL 2.2 Total Bilirubin (0.2-1.0) mg/dL 0.4 AST (15-37) U/L 27 ALT (14-59) U/L 36 Alkaline Phosphatase (46-116) U/L 119 H Troponin I (<or=60) ng/L < 50 Total Protein (6.4-8.2) g/dL 6.2 L Albumin (3.4-5.0) g/dL 2.0 L COVID-19 Source SARS-CoV-2 (PCR) (Negative) Range/Units 06/28/22 06/28/22 13:12 13:22 WBC (4.4-10.8) 10^3/uL RBC (3.93-5.22) 10^6/uL Hgb (11.2-15.7) g/dL Hct (36.0-46.0) % MCV (80-95) fL MCH (27.0-33.0) pg MCHC (32.0-36.0) % RDW (11.7-14.6) % Plt Count (130-400) 10^3/uL MPV (8.0-11.0) fL Immature Gran % Neutrophils % Lymphocytes % Monocytes % Eosinophils % Basophils % Nucleated RBC % (0.0-0.3) % Absolute Neutrophils (1.2-6.7) 10^3/uL Absolute Lymphocytes (1.2-3.4) 10^3/uL Absolute Monocytes (0.1-0.8) 10^3/uL Absolute Eosinophils (0.0-0.7) 10^3/uL Absolute Basophils (0.0-0.2) 10^3/uL PT (9.3-11.0) sec INR (0.9-1.1) APTT (21.0-27.5) sec VBG Lactate (0.6-1.4) mmol/L 0.9 Sodium (136-145) mmol/L Potassium (3.5-5.1) mmol/L Chloride (98-107) mmol/L Carbon Dioxide (21.0-32.0) mmol/L Anion Gap (3-11) mmol/L BUN (7-18) mg/dL Creatinine (0.55-1.02) mg/dL Est GFR (CKD-EPI 2020) (mL/min/1.73m2) Glucose (74-106) mg/dL Calcium (8.5-10.1) mg/dL Magnesium (1.8-2.4) mg/dL Total Bilirubin (0.2-1.0) mg/dL AST (15-37) U/L ALT (14-59) U/L Alkaline Phosphatase (46-116) U/L Troponin I (<or=60) ng/L Total Protein (6.4-8.2) g/dL Albumin (3.4-5.0) g/dL COVID-19 Source Nasal/Nares SARS-CoV-2 (PCR) (Negative) Negative ECG Data Attestation: I personally reviewed and interpreted this ECG (s) as follows: Interpretation: A. fib, ventricular rate of 81, no STEMI HPI General Mode of arrival: EMS . Date/Time Provider Initiated Documentation: 06/28/22 12:19 . Limitations to Documentation: no limitations . Information obtained by: patient and EMS . HPI Narrative: This is a 77-year-old female with a past medical history that includes COPD, CHF, A. fib, hypertension, pulmonary hypertension, former smoker, renal insufficiency, on Xarelto, presenting to the ER for generalized weakness, decreased p.o. intake. Patient reports that she quit smoking approximately 2-3 months ago and since that time has had little appetite, reports generalized weakness acute on chronic, concern for dehydration. She denies recent illness or trauma. Denies headache, chest pain, nausea, vomiting, change in bowel or bladder function, leg swelling, skin rash. She tells me that she has been compliant with her typical medications. Related Data Home Medications Medication Instructions Recorded Confirmed albuterol sulfate 90 mcg/actuation 2 puff inhalation QID PRN 11/09/18 05/20/22 aerosol inhaler (ProAir HFA) atorvastatin 80 mg tablet (Lipitor) 80 mg PO QPM 11/09/18 05/20/22 ipratropium 0.5 mg-albuterol 3 mg 3 ml UPD Q6H PRN PRN shortness of 11/16/18 05/20/22 (2.5 mg base)/3 mL nebulization breath or wheezing #180 mL soln rivaroxaban 20 mg tablet (Xarelto) 20 mg PO QPM #30 tabs 03/14/19 05/20/22 diltiazem HCl 120 mg 120 mg PO HS 09/21/19 05/20/22 capsule,extended release 24 hr Inhaler, Assist Devices [Pocket 1 ea miscellaneous DIRECTED ##0 08/27/21 04/16/22 Chamber] tiotropium 2.5 mcg-olodaterol 2.5 2 spray inhalation DAILY 03/17/22 05/20/22 mcg/actuation mist for inhalation (Stiolto Respimat) guaifenesin 600 mg tablet, 600 mg PO BID PRN 05/20/22 05/20/22 extended release 12 hr Previous Rx's Medication Instructions Recorded ipratropium 0.5 mg-albuterol 3 mg 3 ml UPD Q6H PRN PRN shortness of 11/16/18 (2.5 mg base)/3 mL nebulization breath or wheezing #180 mL soln rivaroxaban 20 mg tablet (Xarelto) 20 mg PO QPM #30 tabs 03/14/19 Inhaler, Assist Devices [Pocket 1 ea miscellaneous DIRECTED ##0 08/27/21 Chamber] Allergies Allergy/AdvReac Type Severity Reaction Status Date / Time No Known Allergies Allergy Unverified 05/20/22 00:32 General Stated Complaint: GenMedical BOGDAN: 3 Review of Systems Constitutional Constitutional: Denies fever(s) and Reports weakness Eyes Eyes: Denies change in vision ENT Ears, Nose, Mouth, and Throat: Denies neck pain Cardiovascular Cardiovascular: Denies chest pain and Denies dyspnea Respiratory Respiratory: Reports cough (chronic) and Denies dyspnea Gastrointestinal Gastrointestinal: Denies abdominal pain, Denies nausea and Denies vomiting Genitourinary Genitourinary: Denies dysuria Musculoskeletal Musculoskeletal: Denies back pain and Denies neck pain Integumentary/Breasts Skin/Breast: Denies rash Neurologic Neurologic: Reports weakness Hematologic/Lymphatic Hematologic/Lymphatic: Reports easy bleeding and Reports easy bruising PFSH All Active Problems (Updated 06/28/22 @ 15:39 by REYNA Hernandez) Weakness (Acute) Pneumonia (Acute) Gross hematuria (Acute) 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) Anemia (Chronic) Bilateral hydronephrosis (Acute) Acute renal failure (Acute) Extrinsic ureteral obstruction (Acute) AAA (abdominal aortic aneurysm) (Chronic) Pulmonary emboli (Chronic) Pneumonia (Acute) Respiratory failure with hypoxia and hypercapnia (Acute) NSCLC of right lung (Acute) Palliative care patient (Acute) Pulmonary hypertension (Chronic) Cor pulmonale (Acute) Weakness of both legs (Acute) Hypoxia (Acute) Requires supplemental oxygen (Acute) Hypoxia (Acute) Shortness of breath (Acute) CHF (congestive heart failure) (Chronic) HTN (hypertension) (Chronic) Atrial fibrillation (Chronic) Smoker (Acute) COPD (chronic obstructive pulmonary disease) (Chronic) Medical History Acute and chronic respiratory failure ([id number]) Acute exacerbation of chronic obstructive pulmonary disease Acute exacerbation of congestive heart failure Acute on chronic respiratory failure with hypoxia and hypercapnia Acute respiratory acidosis Acute respiratory failure with hypoxia and hypercapnia LORENE (acute kidney injury) Atrial fibrillation Bilateral hydronephrosis Chronic respiratory failure with hypoxia and hypercapnia COPD (chronic obstructive pulmonary disease) Hemoptysis HTN (hypertension) Hydronephrosis Hydronephrosis Hypercholesteremia Lung cancer Lung mass Pulmonary hypertension Smoker Surgical History S/P appendectomy S/P cholecystectomy S/P hysterectomy Family History Father Hemochromatosis Cirrhosis due to hemochromatosis Diabetes Daughter Heart disease AR in 40s Social History Smoking/Tobacco Use Status: Current-Occasional Tobacco Type: cigarettes Years smoked: 50 Quit status: considering quitting Counseling given: patient declined Smoking risk assessment performed?: Yes Alcohol Intake: never Drug use: Never Substance use type: does not use What type of physical activity do you participate in: none Do you feel safe at home: Yes Do you feel safe in your relationship?: Yes Additional Social history: lives alone, but a lot of family in the area. of lung cancer Exam Const General: cooperative, comfortable and no acute distress Orientation: alert, awake and oriented x3 HENMT Head: normal to inspection, normocephalic and atraumatic Mouth: moist mucous membranes abnormal (dry) Eyes General: appearance normal, both eyes and all related structures Conjunctivae: conjunctivae normal Neck Neck: normal visual inspection, full ROM, no meningeal signs, trachea midline and supple Resp Effort & Inspection: normal respiratory effort and able to speak in complete sentences Auscultation: diminished lung sounds bilaterally in the lower lung moses and wheezes (Occasionally scattered throughout, partially clear with cough) Cardio Rate: regular rate Rhythm: abnormal rhythm irregularly irregular GI Palpation: soft, not firm, no guarding and nontender Auscultation: normal bowel sounds Back/Spine/Pelvis Back: no CVA tenderness and No back tenderness Skin General skin exam: no rashes or lesions noted Neuro General: patient alert, patient awake, patient oriented x3, moves all extremities and no focal motor deficits Cognition: normal cognition Speech: speech normal Gait: normal gait Motor: muscle tone normal throughout Sensory Exam: no sensory deficits noted Extrem General: normal to inspection, full ROM, capillary refill normal, no pedal edema and no calf tenderness Psych Appearance: grossly normal Mental Status: mental status grossly normal Course Vital Signs Vital signs: Vital Signs Temperature 36.8 C 06/28/22 11:24 Pulse 90 06/28/22 11:24 Respiratory Rate 15 06/28/22 11:24 Blood Pressure 99/56 L 06/28/22 11:24 Pulse Oximetry 96 06/28/22 11:24 Temperature 36.6 C 06/28/22 11:45 Temperature Source Oral 06/28/22 11:24 Pulse 90 06/28/22 11:45 Respiratory Rate 18 06/28/22 11:45 Respiratory Effort 06/28/22 11:38 Respiratory Depth Normal 06/28/22 11:38 Respiratory Pattern Normal 06/28/22 11:38 Blood Pressure 99/56 L 06/28/22 11:45 Blood Pressure Position Sitting 06/28/22 11:24 Pulse Oximetry 96 06/28/22 11:24 Oxygen Delivery Method Room Air 06/28/22 11:45 Oxygen Flow Rate 0 06/28/22 11:45 Pain Level 0 06/28/22 11:45 Comment 06/28/22 11:45
[2022-06-28] MEDS: Normal Saline 1,000 ML 1000 ML IV ×2 (12:45→14:45)
[2022-06-28 12:56] LABS: Absolute Eosinophil Count 0.02 10^3/uL (0.0-0.7); Absolute Lymphocyte Count 0.38 10^3/uL (1.2-3.4); Absolute Monocyte Count 0.69 10^3/uL (0.1-0.8); Basophils % 0.1; Eosinophils % 0.1; HCT 31.4 % (36.0-46.0); HGB 10.2 g/dL (11.2-15.7); Immature Grans % 0.7; Lymphocytes % 2.5; MCH 29.4 pg (27.0-33.0); MCHC 32.5 % (32.0-36.0); MCV 91 fL (80-95); MPV 11.1 fL (8.0-11.0); Monocytes % 4.6; Platelet Count 221 10^3/uL (130-400); RBC 3.47 10^6/uL (3.93-5.22); RDW 15.3 % (11.7-14.6); RDW-SD 51.2 fL; WBC 15.09 10^3/uL (4.4-10.8)
[2022-06-28 12:58] LABS: Absolute Basophil Count 0.02 10^3/uL (0.0-0.2); Absolute Neutrophil Count 13.88 10^3/uL (1.2-6.7)
[2022-06-28 13:10] LABS: INR 1.2 (0.9-1.1); PTT Activated 24.4 sec (21.0-27.5); Prothrombin Time 11.6 sec (9.3-11.0)
[2022-06-28 13:17] LABS: ALT 36 U/L (14-59); AST 27 U/L (15-37); Alkaline Phosphatase 119 U/L (46-116); Anion Gap 4.8 mmol/L (3-11); Bilirubin, Total 0.4 mg/dL (0.2-1.0); CO2 32.2 mmol/L (21.0-32.0); CREATININE 2.3 mg/dL (0.55-1.02); Calcium 8.8 mg/dL (8.5-10.1); Chloride 101 mmol/L (98-107); Estimated GFR 21.62 (mL/min/1.73m2); Glucose 147 mg/dL (74-106); Magnesium 2.2 mg/dL (1.8-2.4); Potassium 5.3 mmol/L (3.5-5.1); Sodium 138 mmol/L (136-145); Total Protein 6.2 g/dL (6.4-8.2); Troponin I < 50 ng/L (<or=60)
[2022-06-28 13:17] LABS: Lactate 0.9 mmol/L (0.6-1.4)
[2022-06-28 13:21] LABS: BUN 109 mg/dL (7-18)
[2022-06-28 13:25] LABS: Source Nasal/Nares
[2022-06-28 14:02] LABS: COVID-19 PCR Negative (Negative)
--- NOTE | 2022-06-28 14:37 | NUR.NOTE ---
Nursing Note: initial IV placement recorded in error (wrong location)
[2022-06-28 15:40] LABS: Troponin I < 50 ng/L (<or=60)
[2022-06-28 15:40] LABS: Bilirubin Negative (Negative); Blood Large (Negative); Clarity Turbid (Clear); Glucose Negative (Negative); Ketones Negative (Negative); Leukocyte Esterase Large (Negative); Nitrite Positive (Negative); pH 8.5 (5-8)
[2022-06-28 15:52] LABS: C & S Indicated? Yes; WBC >50 HPF (0-5)
--- NOTE | 2022-06-28 16:30 | W.EDPROG ---
Date of service: 06/28/22 Time of Service: 15:45 Medical Decision Making 3665-care of patient assumed by REYNA Go. Patient pending reassessment and labs after 2 L of fluids, patient still pending urinalysis, and question of possible subtle pneumonia in left lower lobe. Received urinalysis and patient does have urinary tract infection. Given that patient has a BUN of 109, subtle but suspicious pneumonia, and urinary tract infection with speaking to granddaughter patient has failure to thrive recently with difficulty even performing normal ADLs due to lack of motivation. Given all of this I do feel that patient would benefit from admission. Called and spoke with hospitalist who agreed with plan of care. Patient to be started on Levaquin and will cancel liter of LR and repeat labs. patient is also in agreement with this plan. This documentation was generated using [employer] system, please disregard any oddities of phrase or misspellings. Lab Data Lab results reviewed: Yes I reviewed the patient's lab results. Exam Const General: cooperative, no acute distress and not ill appearing Orientation: alert, awake and oriented x3 Resp Effort & Inspection: normal respiratory effort, able to speak in complete sentences and no respiratory distress Neuro General: patient alert, patient awake and patient oriented x3 Sign Out Sign Out Data: Sign Out Comment: Generalized weakness, dehydration, pneumonia. Awaiting urinalysis and blood cultures and then will need antibiotics. Awaiting IV fluid and a repeat CBC and CMP. Will need final reassessment and disposition based upon her response to IV fluids and repeat laboratory values. Last updated by Clinton Martinez PA at 06/28/22 15:40 Discharge Plan Disposition Patient Disposition: [facility] INPATIENT Condition: Stable Discharge Details Clinical Impression: Acute uremia, Weakness, Pneumonia, Acute UTI Admit Date/Time: 06/28/22 16:29 Admit Provider: Maninder Haskins Attending Provider: Maninder Haskins Primary Care Provider: Sherwin Ceja ED Provider: Nish Sun
--- NOTE | 2022-06-28 16:42 | W.PM.HP.N ---
Date of service: 06/28/22 Time of Service: 16:42 Assessment and Plan Assessment and plan (1) Acute UTI: Status: Acute Assessment and plan: cultures pending continue levaquin until I&D and sensitivities returned (2) Pneumonia: Status: Acute Assessment and plan: should be covered with Levaquin continue pulmonary toilet inhalers (3) Weakness: Status: Acute Assessment and plan: PT/OT (4) Atrial fibrillation: Status: Chronic Assessment and plan: rate controlled anticoagulated on xarelto discussed with DR Cabrera. Qualifiers: Atrial fibrillation type: permanent Qualified Code(s): I48.2 - Chronic atrial fibrillation History of Present Illness History of Present Illness Chief Complaint: weakness Narrative: presents to the ED with several weeks of declining, poor po intake, work up in the ED shows UTI and suspicion of pneumonia. She was given IV antibiotics and hospitalist request for admission for further management Review of Systems All systems reviewed & are unremarkable except as noted in HPI and below PFSH All Active Problems (Updated 06/28/22 @ 16:34 by Nish Sun NP) Weakness (Acute) Pneumonia (Acute) Acute uremia (Acute) Acute UTI (Acute) Gross hematuria (Acute) 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) Anemia (Chronic) Bilateral hydronephrosis (Acute) Acute renal failure (Acute) Extrinsic ureteral obstruction (Acute) AAA (abdominal aortic aneurysm) (Chronic) Pulmonary emboli (Chronic) Pneumonia (Acute) Respiratory failure with hypoxia and hypercapnia (Acute) NSCLC of right lung (Acute) Palliative care patient (Acute) Pulmonary hypertension (Chronic) Cor pulmonale (Acute) Weakness of both legs (Acute) Hypoxia (Acute) Requires supplemental oxygen (Acute) Hypoxia (Acute) Shortness of breath (Acute) CHF (congestive heart failure) (Chronic) HTN (hypertension) (Chronic) Atrial fibrillation (Chronic) Smoker (Acute) COPD (chronic obstructive pulmonary disease) (Chronic) Medical History Acute and chronic respiratory failure ([id number]) Acute exacerbation of chronic obstructive pulmonary disease Acute exacerbation of congestive heart failure Acute on chronic respiratory failure with hypoxia and hypercapnia Acute respiratory acidosis Acute respiratory failure with hypoxia and hypercapnia LORENE (acute kidney injury) Atrial fibrillation Bilateral hydronephrosis Chronic respiratory failure with hypoxia and hypercapnia COPD (chronic obstructive pulmonary disease) Hemoptysis HTN (hypertension) Hydronephrosis Hydronephrosis Hypercholesteremia Lung cancer Lung mass Pulmonary hypertension Smoker Surgical History S/P appendectomy S/P cholecystectomy S/P hysterectomy Family History Father Hemochromatosis Cirrhosis due to hemochromatosis Diabetes Daughter Heart disease [place] in 40s Social History Smoking/Tobacco Use Status: Current-Occasional Tobacco Type: cigarettes Years smoked: 50 Quit status: considering quitting Counseling given: patient declined Smoking risk assessment performed?: Yes Alcohol Intake: never Drug use: Never Substance use type: does not use What type of physical activity do you participate in: none Do you feel safe at home: Yes Do you feel safe in your relationship?: Yes Additional Social history: lives alone, but a lot of family in the area. of lung cancer Meds Allergies and Home Medications Allergies Allergy/AdvReac Type Severity Reaction Status Date / Time No Known Allergies Allergy Unverified 06/28/22 17:03 Home Medications Medication Instructions Recorded Confirmed Type albuterol sulfate 90 mcg/actuation 2 puff inhalation QID PRN 11/09/18 06/28/22 History aerosol inhaler (ProAir HFA) atorvastatin 80 mg tablet (Lipitor) 80 mg PO QPM 11/09/18 06/28/22 History ipratropium 0.5 mg-albuterol 3 mg 3 ml UPD Q6H PRN PRN shortness of 11/16/18 06/28/22 Rx (2.5 mg base)/3 mL nebulization breath or wheezing #180 mL soln rivaroxaban 20 mg tablet (Xarelto) 20 mg PO QPM #30 tabs 03/14/19 06/28/22 Rx diltiazem HCl 120 mg 120 mg PO HS 09/21/19 06/28/22 History capsule,extended release 24 hr Inhaler, Assist Devices [Pocket 1 ea miscellaneous DIRECTED ##0 08/27/21 06/28/22 Rx Chamber] tiotropium 2.5 mcg-olodaterol 2.5 2 spray inhalation DAILY 03/17/22 06/28/22 History mcg/actuation mist for inhalation (Stiolto Respimat) guaifenesin 600 mg tablet, 600 mg PO BID PRN 05/20/22 06/28/22 History extended release 12 hr Exam Const General: cooperative, comfortable and no acute distress Orientation: alert, awake and oriented x3 HENHI Head: normal to inspection, normocephalic and atraumatic Mouth: moist mucous membranes abnormal (dry) Eyes General: appearance normal, both eyes and all related structures Conjunctivae: conjunctivae normal Neck Neck: normal visual inspection, full ROM and trachea midline Resp Effort & Inspection: normal respiratory effort and able to speak in complete sentences Auscultation: diminished lung sounds bilaterally in the lower lung moses and wheezes (Occasionally scattered throughout, partially clear with cough) Cardio Rate: regular rate Rhythm: abnormal rhythm irregularly irregular GI Palpation: soft, no guarding and nontender Auscultation: normal bowel sounds Back/Spine/Pelvis Back: No back tenderness Skin General skin exam: no rashes or lesions noted Neuro General: patient alert, patient awake, patient oriented x3 and moves all extremities Cognition: normal cognition Speech: speech normal Gait: normal gait Motor: muscle tone normal throughout Extrem General: normal to inspection, full ROM, capillary refill normal, no pedal edema and no calf tenderness Psych Appearance: grossly normal Mental Status: mental status grossly normal Results Labs Result diagrams: 06/29/22 05:50 06/29/22 05:50 Labs: Laboratory Results - last 24 hr 06/28/22 06/28/22 06/28/22 12:35 12:35 12:35 WBC 15.09 H RBC 3.47 L Hgb 10.2 L Hct 31.4 L MCV 91 MCH 29.4 MCHC 32.5 RDW 15.3 H Plt Count 221 MPV 11.1 H Immature Gran % 0.7 Neutrophils % 92.0 Band Neutrophils % Lymphocytes % 2.5 Atypical Lymphs % Monocytes % 4.6 Eosinophils % 0.1 Basophils % 0.1 Metamyelocytes % Myelocytes % Promyelocytes % Other Cells % Nucleated RBC % 0.0 Absolute Neutrophils 13.88 H Absolute Lymphocytes 0.38 L Absolute Monocytes 0.69 Absolute Eosinophils 0.02 Absolute Basophils 0.02 RBC Morphology Polychromasia Hypochromasia Poikilocytosis Basophilic Stippling Anisocytosis Microcytosis Macrocytosis Spherocytes Tear Drop Cells Ovalocytes Stomatocytes [place] Bodies [place] Cells/Echinocytes Acanthocytes (Spur) Schistocytes PT 11.6 H INR 1.2 H APTT 24.4 VBG Lactate Sodium 138 Potassium 5.3 H Chloride 101 Carbon Dioxide 32.2 H Anion Gap 4.8 BUN 109 H* Creatinine 2.3 H Est GFR (CKD-EPI 2020) 21.62 Glucose 147 H Calcium 8.8 Magnesium 2.2 Total Bilirubin 0.4 AST 27 ALT 36 Alkaline Phosphatase 119 H Troponin I < 50 Total Protein 6.2 L Albumin 2.0 L Urine Color Urine Clarity Urine pH Ur Specific [place] Urine Protein Urine Ketones Urine Blood Urine Nitrite Urine Bilirubin Urine Urobilinogen Ur Leukocyte Esterase Urine RBC Urine WBC Ur Epithelial Cells Urine Crystals Urine Bacteria Urine Mucus Ur Culture Indicated? Urine Glucose COVID-19 Source SARS-CoV-2 (PCR) 06/28/22 06/28/22 06/28/22 13:12 13:22 15:05 WBC RBC Hgb Hct MCV MCH MCHC RDW Plt Count MPV Immature Gran % Neutrophils % Band Neutrophils % Lymphocytes % Atypical Lymphs % Monocytes % Eosinophils % Basophils % Metamyelocytes % Myelocytes % Promyelocytes % Other Cells % Nucleated RBC % Absolute Neutrophils Absolute Lymphocytes Absolute Monocytes Absolute Eosinophils Absolute Basophils RBC Morphology Polychromasia Hypochromasia Poikilocytosis Basophilic Stippling Anisocytosis Microcytosis Macrocytosis Spherocytes Tear Drop Cells Ovalocytes Stomatocytes [place] Bodies [place] Cells/Echinocytes Acanthocytes (Spur) Schistocytes PT INR APTT VBG Lactate 0.9 Sodium Potassium Chloride Carbon Dioxide Anion Gap BUN Creatinine Est GFR (CKD-EPI 2020) Glucose Calcium Magnesium Total Bilirubin AST ALT Alkaline Phosphatase Troponin I Total Protein Albumin Urine Color Dark Yellow Urine Clarity Turbid Urine pH 8.5 H Ur Specific [place] 1.020 Urine Protein 100 H Urine Ketones Negative Urine Blood Large H Urine Nitrite Positive H Urine Bilirubin Negative Urine Urobilinogen 1.0 H Ur Leukocyte Esterase Large H Urine RBC Not Applicable Urine WBC >50 H Ur Epithelial Cells Not Applicable Urine Crystals Not Applicable Urine Bacteria Not Applicable Urine Mucus Not Applicable Ur Culture Indicated? Yes Urine Glucose Negative COVID-19 Source Nasal/Nares SARS-CoV-2 (PCR) Negative 06/28/22 06/28/22 06/28/22 15:13 15:23 15:23 WBC Cancelled RBC Cancelled Hgb Cancelled Hct Cancelled MCV Cancelled MCH Cancelled MCHC Cancelled RDW Cancelled Plt Count Cancelled MPV Cancelled Immature Gran % Cancelled Neutrophils % Cancelled Band Neutrophils % Cancelled Lymphocytes % Cancelled Atypical Lymphs % Cancelled Monocytes % Cancelled Eosinophils % Cancelled Basophils % Cancelled Metamyelocytes % Cancelled Myelocytes % Cancelled Promyelocytes % Cancelled Other Cells % Cancelled Nucleated RBC % Cancelled Absolute Neutrophils Cancelled Absolute Lymphocytes Cancelled Absolute Monocytes Cancelled Absolute Eosinophils Cancelled Absolute Basophils Cancelled RBC Morphology Cancelled Polychromasia Cancelled Hypochromasia Cancelled Poikilocytosis Cancelled Basophilic Stippling Cancelled Anisocytosis Cancelled Microcytosis Cancelled Macrocytosis Cancelled Spherocytes Cancelled Tear Drop Cells Cancelled Ovalocytes Cancelled Stomatocytes Cancelled [place] Bodies Cancelled Charley Cells/Echinocytes Cancelled Acanthocytes (Spur) Cancelled Schistocytes Cancelled PT INR APTT VBG Lactate Sodium Cancelled Potassium Cancelled Chloride Cancelled Carbon Dioxide Cancelled Anion Gap Cancelled BUN Cancelled Creatinine Cancelled Est GFR (CKD-EPI 2020) Cancelled Glucose Cancelled Calcium Cancelled Magnesium Total Bilirubin Cancelled AST Cancelled ALT Cancelled Alkaline Phosphatase Cancelled Troponin I < 50 Total Protein Cancelled Albumin Cancelled Urine Color Urine Clarity Urine pH Ur Specific [place] Urine Protein Urine Ketones Urine Blood Urine Nitrite Urine Bilirubin Urine Urobilinogen Ur Leukocyte Esterase Urine RBC Urine WBC Ur Epithelial Cells Urine Crystals Urine Bacteria Urine Mucus Ur Culture Indicated? Urine Glucose COVID-19 Source SARS-CoV-2 (PCR) Last Vital Signs Temp 36.6 C 06/28/22 14:45 Pulse 79 06/28/22 14:46 Resp 39 H 06/28/22 14:46 BP 104/66 06/28/22 14:46 Pulse Ox 95 06/28/22 14:45
[2022-06-28] MEDS: levoFLOXacin 750 MG/150 ML BAG 100 MG IVPB (16:46)
--- NOTE | 2022-06-28 17:22 | NUR.NOTE ---
Nursing Note:Call to Medical Surgical unit, Ailin RN received handoff report, Ailin ready to receive pt, pt assigned 230..
[2022-06-28] MEDS: Normal Saline 1,000 ML 75 ML IV (18:37)
[2022-06-28] MEDS: Albuterol/Ipratropium 3 ML UPD VIAL UPD (18:56)
[2022-06-28] MEDS: guaiFENesin 600 MG TABCR PO (19:31)
[2022-06-28] MEDS: Atorvastatin 40 MG TAB 80 MG PO (19:31)
[2022-06-28] MEDS: dilTIAZem CD 120 MG CAPCR PO (22:03)
[2022-06-29 06:23] LABS: Abs Immature Grans 0.08 10^3/uL (0.0-0.06); Absolute Eosinophil Count 0.01 10^3/uL (0.0-0.7); Absolute Lymphocyte Count 0.34 10^3/uL (1.2-3.4); Absolute Monocyte Count 0.53 10^3/uL (0.1-0.8); Basophils % 0.2; Eosinophils % 0.1; HCT 27.2 % (36.0-46.0); HGB 8.7 g/dL (11.2-15.7); Immature Grans % 0.6; Lymphocytes % 2.6; MCH 29.1 pg (27.0-33.0); MCV 91 fL (80-95); MPV 10.6 fL (8.0-11.0); Neutrophils % 92.5; Platelet Count 185 10^3/uL (130-400); RBC 2.99 10^6/uL (3.93-5.22); RDW 15.3 % (11.7-14.6); RDW-SD 50.8 fL; WBC 13.14 10^3/uL (4.4-10.8)
[2022-06-29 06:40] LABS: Absolute Basophil Count 0.03 10^3/uL (0.0-0.2); Absolute Neutrophil Count 12.15 10^3/uL (1.2-6.7)
[2022-06-29 06:53] LABS: Anion Gap 7.1 mmol/L (3-11); CO2 25.9 mmol/L (21.0-32.0); CREATININE 2.1 mg/dL (0.55-1.02); Calcium 8.1 mg/dL (8.5-10.1); Chloride 106 mmol/L (98-107); Estimated GFR 24.12 (mL/min/1.73m2); Glucose 89 mg/dL (74-106); Potassium 4.8 mmol/L (3.5-5.1); Sodium 139 mmol/L (136-145)
[2022-06-29 06:59] LABS: BUN 89 mg/dL (7-18)
[2022-06-29] MEDS: Normal Saline 1,000 ML 75 ML IV (07:51)
[2022-06-29] MEDS: guaiFENesin 600 MG TABCR PO ×2 (07:51→19:38)
[2022-06-29 07:57] LABS: Diff Comment RBC Morph Reviewed; Polychromasia Present
[2022-06-29 07:58] LABS: Poikilocytes 2+
[2022-06-29 08:25] VITALS: BP 70/48; PULSE 76; RESP 22; TEMP 36.6; O2SAT 90
[2022-06-29 08:39] VITALS: BP 82/54
[2022-06-29 08:59] VITALS: BP 102/60; O2SAT 96
[2022-06-29] MEDS: Normal Saline 250 ML 500 ML IV (09:10)
--- NOTE | 2022-06-29 09:50 | W.NUTCONSULT ---
Date of service: 06/29/22 Time of Service: 09:50 Nutritional Consult ASSESSMENT: Siomara admitted with UTI and PNA after several weeks of decline and poor intake. Unintentional weight loss of 11% noted in last 30 days considered significant and of concern. BMI indicates underweight status. At high nutritional risk in view of weight loss/decline, poor intake and low BMI. At risk for skin breakdown. Estimated Needs: 6345-4253 kcal, 54-65 g protein. Will need to complete > 75% of meals to meet macronutrient needs for weight regain. NUTRITIONAL DIAGNOSIS: Moderate malnutrition in setting of acute/chronic illness as evidenced by significant weight loss and poor intake INTERVENTION: Continue current diet order Provide ensure clear TID to supplement po intake. MONITORING AND EVALUATION: weight, po intake, labs Time Spent in Nutritional Counseling and Treatment: 0
--- NOTE | 2022-06-29 11:03 | PT.INIE ---
Date of service: 06/29/22 Time of Service: 10: PT Notes Visit Reasons: UTI,Pneumonia Physical Therapy Inpatient Initial Evaluation Date: 06/29/2022 Referring Doctor: Tanesha Corral NP PT Orders: PT CONSULT: Eval/Treat Precautions: Fall. Standard. Activity as tolerated. Patient Profile/Admitting Diagnosis: Patient is a 77-year-old female who presented to the ED on 06/28/2022 with diagnoses of acute UTI, pneumonia, generalized weakness, and AF. PMHX: All Active Problems?(Updated 06/28/22 @ 16:34 by Nish Sun NP) Weakness (Acute) Pneumonia (Acute) Acute uremia (Acute) Acute UTI (Acute) Gross hematuria (Acute) 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) Anemia (Chronic) Bilateral hydronephrosis (Acute) Acute renal failure (Acute) Extrinsic ureteral obstruction (Acute) AAA (abdominal aortic aneurysm) (Chronic) Pulmonary emboli (Chronic) Pneumonia (Acute) Respiratory failure with hypoxia and hypercapnia (Acute) NSCLC of right lung (Acute) Palliative care patient (Acute) Pulmonary hypertension (Chronic) Cor pulmonale (Acute) Weakness of both legs (Acute) Hypoxia (Acute) Requires supplemental oxygen (Acute) Hypoxia (Acute) Shortness of breath (Acute) CHF (congestive heart failure) (Chronic) HTN (hypertension) (Chronic) Atrial fibrillation (Chronic) Smoker (Acute) COPD (chronic obstructive pulmonary disease) (Chronic) Medical History Acute and chronic respiratory failure ([id number]) Acute exacerbation of chronic obstructive pulmonary disease Acute exacerbation of congestive heart failure Acute on chronic respiratory failure with hypoxia and hypercapnia Acute respiratory acidosis Acute respiratory failure with hypoxia and hypercapnia LORENE (acute kidney injury) Atrial fibrillation Bilateral hydronephrosis Chronic respiratory failure with hypoxia and hypercapnia COPD (chronic obstructive pulmonary disease) Hemoptysis HTN (hypertension) Hydronephrosis Hydronephrosis Hypercholesteremia Lung cancer Lung mass Pulmonary hypertension Smoker Surgical History? S/P appendectomy S/P cholecystectomy S/P hysterectomy Social History/Home Situation: Lives alone in a private home with 4 steps to enter with rails on B sides. Independent with no AD with all aspects of ADLs. Still drives. Equipment Owned/DME: FWW, SPC Subjective: Reported dizziness at initiation of ambulation activity. Objective: General Observation: Supine in bed. IV in the L UE. Mental Status: Alert and oriented as to person, place, time, and purpose. Able to pay attention, focus, and respond appropriately. Pain: Denies Vital Signs: WNL as closely monitored by ROM: Right Upper Extremity: Shoulder Flexion WFL. Shoulder abduction WFL. Elbow flexion WFL. Wrist flexion WFL. Functional opening and closing of hand WFL. Left Upper Extremity: Shoulder Flexion WFL. Shoulder abduction WFL. Elbow flexion WFL. Wrist flexion WFL. Functional opening and closing of hand WFL. Right Lower Extremity: Hip flexion WFL. Hip abduction WFL. Knee flexion WFL. Ankle dorsiflexion WFL. Ankle plantarflexion WFL. Left Lower Extremity: Hip flexion WFL. Hip abduction WFL. Knee flexion WFL. Ankle dorsiflexion WFL. Ankle plantarflexion WFL. Strength: Right Upper Extremity: Shoulder flexors 3+/5. Shoulder abductors 4/5. Elbow flexors 4/5. Elbow extensors 4/5. Veterinary Anatomist strong. Left Upper Extremity: Shoulder flexors 3+/5. Shoulder abductors 4/5. Elbow flexors 4/5. Elbow extensors 4/5. Veterinary Anatomist strong. Right Lower Extremity: Hip flexors 4-/5. Hip abductors 4-/5. Knee flexors 4-/5. Knee extensors 4-/5. Ankle dorsiflexors 4-/5. Ankle plantarflexors 4-/5. Left Lower Extremity: Hip flexors 4-/5. Hip abductors 4-/5. Knee flexors 4-/5. Knee extensors 4-/5. Ankle dorsiflexors 4-/5. Ankle plantarflexors 4-/5. Bed Mobility/Transfers: Supine to sit stand by assist Sit to supine contact guard assist Sit to stand contact guard assist Stand to sit contact guard assist Bed to bedside commode contact guard assist Bedside commode to bed contact guard assist Bed to reclining chair contact guard assist Reclining chair to bed contact guard assist Gait: Instructed patient with level surface ambulation of 15 feet + 20 feet requiring contact guard assist. Cynthia decreased. Step height decreased. Step length decreased. Reported fatigue and requested to sit down to rest. Minimal shortness of breath that subsided with rest. Balance: Static Sitting: Normal Dynamic Sitting: Normal Static Standing: Fair Dynamic Standing: Fair Special Tests: Mobility Limitations Standardized Measure [facility] AM-PAC 6 clicks Basic Mobility Inpatient Short Form: Raw Score: 18 CMS Score: 47% deficit Informed Consent/Education: Patient was instructed in purpose of PT consult and plan of care. Agreeable to proceed with established PT POC to achieve personal goals. Assessment: Patient presents with clinical signs and symptoms consistent with current/admitting diagnoses that have resulted to mobility limitations, gait instability, generalized weakness, and overall ADL decline as demonstrated by the following impairment level findings: 1. Decreased strength to B UE/LE major muscle groups 2. Impaired sitting/standing balance 3. Impaired activity tolerance 4. Shortness of breath 5. Swelling Impairments are contributing to the following functional limitations: 1. Decline in bed mobility skills 2. Decline in transfer skills 3. Difficulty with ambulation without assistive device and physical assistance 4. Increased completion time for mobility ADL performance 5. Increased risk for falls 6. Difficulty with managing steps alone safely Patient is assessed as a [id number] moderate complexity based on the following: History: 77-year-old female with past medical history as indicated above Examination: Demonstrable impairment in strength, balance, and mobility level with underlying impairments and functional limitations as exhibited above as well as deficit score of 47% utilizing the [facility] Mobility Inpatient Short Form Presentation: Evolving Decision Makin moderate complexity Goals: Goals X1 week 1. Supine-Sit independent 2. Sit-Supine independent 3. Sit-Stand independent 4. Stand-Sit independent with FWW 5. Bed-Chair independent with FWW 6. Chair-Bed independent with FWW 7. Independent gait on level surface with use of FWW for at least 100 feet without report of pain nor dyspnea 8. Independent stair negotiation while holding onto B rails for at least 5 steps without report of pain nor dyspnea 9. Independent with home exercise program 10. Good static and dynamic standing balance/tolerance Plan of Care/Treatment Plan: 1-2x/day, 7 days/week x 1 week. Plan of care has been reviewed with the WINDOW CLERK providing the service under Physical Therapy direction. Initiate Physical Therapy intervention for pain management as needed, strengthening, bed mobility, transfers, gait, stairs, balance training, and use of assistive device. DISCHARGE RECOMMENDATIONS: [] Home with no services [] [X] Home with services. Patient will benefit from home health PT services in order to progress mobility level using least restrictive assistive ambulatory device, assess home safety, identify additional equipment needs, and establish a functional maintenance program that will increase ability of patient to remain at home. [] Home with outpatient PT [] [] SNF for continued rehabilitation [] [] B[facility] [] [] SNF versus LTC based on ability to participate and progress [] TREATMENT CODE/TIME: 46678 x 20 minutes, 12734 x 18 minutes beginning at 10:22 AM, 10:45 AM, and 11:03 AM. Thank you for the opportunity to participate in the care of this patient. Andressa Cartagena PT, DPT, CLT [facility] [place], [place]
[2022-06-29 11:20] VITALS: BP 117/56; PULSE 74; RESP 18; TEMP 36; O2SAT 90
[2022-06-29] MEDS: Tiotropium/Olodaterol 10 PUFF INHALER 2 PUFF IH (13:00)
--- NOTE | 2022-06-29 14:22 | W.PM.PROGNOT ---
Date of Service Date of service: 06/29/22 Time of Service: 14:23 Assessment and Plan Assessment and plan (1) Acute UTI: Status: Acute Assessment and plan: cultures pending continue levaquin until I&D and sensitivities returned (2) Pneumonia: Status: Acute Assessment and plan: should be covered with Levaquin continue pulmonary toilet inhalers (3) Weakness: Status: Acute Assessment and plan: PT/OT (4) Atrial fibrillation: Status: Chronic Assessment and plan: rate controlled anticoagulated on xarelto discussed with DR Cabrera. Qualifiers: Atrial fibrillation type: permanent Qualified Code(s): I48.2 - Chronic atrial fibrillation Subjective Subjective Patient reports: no new complaints Exam Const General: cooperative, comfortable and no acute distress Orientation: alert, awake and oriented x3 HENMT Head: normal to inspection, normocephalic and atraumatic Mouth: moist mucous membranes abnormal (dry) Eyes General: appearance normal, both eyes and all related structures Conjunctivae: conjunctivae normal Neck Neck: normal visual inspection, full ROM and trachea midline Resp Effort & Inspection: normal respiratory effort and able to speak in complete sentences Auscultation: diminished lung sounds bilaterally in the lower lung moses and wheezes (Occasionally scattered throughout, partially clear with cough) Cardio Rate: regular rate Rhythm: abnormal rhythm irregularly irregular GI Palpation: soft, no guarding and nontender Auscultation: normal bowel sounds Back/Spine/Pelvis Back: No back tenderness Skin General skin exam: no rashes or lesions noted Neuro General: patient alert, patient awake, patient oriented x3 and moves all extremities Cognition: normal cognition Speech: speech normal Gait: normal gait Motor: muscle tone normal throughout Extrem General: normal to inspection, full ROM, capillary refill normal, no pedal edema and no calf tenderness Psych Appearance: grossly normal Mental Status: mental status grossly normal Objective Last Vital Signs Temp 36 C L 06/29/22 11:20 Pulse 74 06/29/22 11:20 Resp 18 06/29/22 11:20 BP 117/56 L 06/29/22 11:20 Pulse Ox 90 L 06/29/22 11:20 Laboratory Results - last 24 hr 06/28/22 06/28/22 06/28/22 15:05 15:13 15:23 WBC RBC Hgb Hct MCV MCH MCHC RDW Plt Count MPV Immature Gran % Neutrophils % Band Neutrophils % Lymphocytes % Atypical Lymphs % Monocytes % Eosinophils % Basophils % Metamyelocytes % Myelocytes % Promyelocytes % Other Cells % Nucleated RBC % Absolute Neutrophils Absolute Lymphocytes Absolute Monocytes Absolute Eosinophils Absolute Basophils RBC Morphology Polychromasia Hypochromasia Poikilocytosis Basophilic Stippling Anisocytosis Microcytosis Macrocytosis Spherocytes Tear Drop Cells Ovalocytes Stomatocytes [place] Bodies [place] Cells/Echinocytes Acanthocytes (Spur) Schistocytes Sodium Cancelled Potassium Cancelled Chloride Cancelled Carbon Dioxide Cancelled Anion Gap Cancelled BUN Cancelled Creatinine Cancelled Est GFR (CKD-EPI 2020) Cancelled Glucose Cancelled Calcium Cancelled Total Bilirubin Cancelled AST Cancelled ALT Cancelled Alkaline Phosphatase Cancelled Troponin I < 50 Total Protein Cancelled Albumin Cancelled Urine Color Dark Yellow Urine Clarity Turbid Urine pH 8.5 H Ur Specific [place] 1.020 Urine Protein 100 H Urine Ketones Negative Urine Blood Large H Urine Nitrite Positive H Urine Bilirubin Negative Urine Urobilinogen 1.0 H Ur Leukocyte Esterase Large H Urine RBC Not Applicable Urine WBC >50 H Ur Epithelial Cells Not Applicable Urine Crystals Not Applicable Urine Bacteria Not Applicable Urine Mucus Not Applicable Ur Culture Indicated? Yes Urine Glucose Negative 06/28/22 06/29/22 06/29/22 15:23 05:50 05:50 WBC Cancelled 13.14 H RBC Cancelled 2.99 L Hgb Cancelled 8.7 L Hct Cancelled 27.2 L MCV Cancelled 91 MCH Cancelled 29.1 MCHC Cancelled 32.0 RDW Cancelled 15.3 H Plt Count Cancelled 185 MPV Cancelled 10.6 Immature Gran % Cancelled 0.6 Neutrophils % Cancelled 92.5 Band Neutrophils % Cancelled Lymphocytes % Cancelled 2.6 Atypical Lymphs % Cancelled Monocytes % Cancelled 4.0 Eosinophils % Cancelled 0.1 Basophils % Cancelled 0.2 Metamyelocytes % Cancelled Myelocytes % Cancelled Promyelocytes % Cancelled Other Cells % Cancelled Nucleated RBC % Cancelled 0.0 Absolute Neutrophils Cancelled 12.15 H Absolute Lymphocytes Cancelled 0.34 L Absolute Monocytes Cancelled 0.53 Absolute Eosinophils Cancelled 0.01 Absolute Basophils Cancelled 0.03 RBC Morphology Cancelled Polychromasia Cancelled Present Hypochromasia Cancelled Poikilocytosis Cancelled 2+ Basophilic Stippling Cancelled Anisocytosis Cancelled Microcytosis Cancelled Macrocytosis Cancelled Spherocytes Cancelled Tear Drop Cells Cancelled Ovalocytes Cancelled Stomatocytes Cancelled [place] Bodies Cancelled [place] Cells/Echinocytes Cancelled Acanthocytes (Spur) Cancelled Schistocytes Cancelled Sodium 139 Potassium 4.8 Chloride 106 Carbon Dioxide 25.9 Anion Gap 7.1 BUN 89 H* Creatinine 2.1 H Est GFR (CKD-EPI 2020) 24.12 Glucose 89 Calcium 8.1 L Total Bilirubin AST ALT Alkaline Phosphatase Troponin I Total Protein Albumin Urine Color Urine Clarity Urine pH Ur Specific [place] Urine Protein Urine Ketones Urine Blood Urine Nitrite Urine Bilirubin Urine Urobilinogen Ur Leukocyte Esterase Urine RBC Urine WBC Ur Epithelial Cells Urine Crystals Urine Bacteria Urine Mucus Ur Culture Indicated? Urine Glucose
--- NOTE | 2022-06-29 15:01 | PDOC.CMIN ---
- If Service Date Differs Date of service: 06/29/22 Time of Service: 15:01 Care Management Initial Assess REASON FOR HOSPITALIZATION:: UTI, Pneumonia PAST MEDICAL HISTORY/PAST SURGICAL HISTORY:: All Active Problems. Weakness (Acute). Pneumonia (Acute). Acute uremia (Acute). Acute UTI (Acute). Gross hematuria (Acute). Aortic mural thrombus (Chronic). Retroperitoneal mass (Acute). Anemia (Chronic). Bilateral hydronephrosis (Acute). Acute renal failure (Acute). Extrinsic ureteral obstruction (Acute). AAA (abdominal aortic aneurysm) (Chronic). Pulmonary emboli (Chronic). Pneumonia (Acute). Respiratory failure with hypoxia and hypercapnia (Acute). NSCLC of right lung (Acute). Palliative care patient (Acute). Pulmonary hypertension (Chronic). Cor pulmonale (Acute). Weakness of both legs (Acute). Hypoxia (Acute). Requires supplemental oxygen (Acute). Hypoxia (Acute). Shortness of breath (Acute). CHF (congestive heart failure) (Chronic). HTN (hypertension) (Chronic). Atrial fibrillation (Chronic). Smoker (Acute). COPD (chronic obstructive pulmonary disease) (Chronic). Medical History. Acute and chronic respiratory failure ([id number]). Acute exacerbation of chronic obstructive pulmonary disease. Acute exacerbation of congestive heart failure. Acute on chronic respiratory failure with hypoxia and hypercapnia. Acute respiratory acidosis. Acute respiratory failure with hypoxia and hypercapnia. LORENE (acute kidney injury). Atrial fibrillation. Bilateral hydronephrosis. Chronic respiratory failure with hypoxia and hypercapnia. COPD (chronic obstructive pulmonary disease). Hemoptysis. HTN (hypertension). Hydronephrosis. Hydronephrosis. Hypercholesteremia. Lung cancer. Lung mass. Pulmonary hypertension. Smoker. Surgical History. S/P appendectomy. S/P cholecystectomy. S/P hysterectomy PREVIOUS FUNCTIONAL STATUS/SOCIAL/FAMILY SUPPORTS:: Siomara is and lives in [facility] alone with her 2 dogs. Her Granddaughter Yolette is taking care of them during her admission. Siomara identifies Yolette as being her primary support and point person to contact. Siomara is retired, drives and is independent at baseline. CURRENT FUNCTIONAL STATUS:: Siomara was working with PT when LEATHA met with her. She stated that per MD, she will be remaining overnight. She stated that she has HH RN currently. CM will meet with her again tomorrow to discuss her needs fully. Per report, she will remain on IV levaquin for an acute UTI while awaiting sensitivities. CM will continue to follow. ADVANCE DIRECTIVES:: On File, [facility] is Madhav Ferris. Hayden Sanchez Has patient been provided with info about the portal/API?: Yes Did the patient sign up for the portal?: No CODE STATUS:: DNR/DNI INSURANCE COVERAGE / FINANCIAL ISSUES:: [facility] MCR replacement CURRENT HOME/COMMUNITY SERVICES/EQUIPMENT:: PRISCA SANTANABUSINESS PROCESS MANAGER PHYSICIAN:: Sherwin Ceja POTENTIAL DISCHARGE NEEDS:: Evaluations for further needs, follow up appointments. PATIENT/FAMILY EDUCATION NEEDS:: Review discharge instructions and limitations, discussion of self care needs including ask me three. ANTICIPATED BARRIERS TO DISCHARGE:: None identified. TRANSPORTATION:: Via private vehicle by family. PLAN:: Siomara is being treated for a UTI, awaiting sensitivities. Once she becomes medically cleared, she will return home with a resumption of services. Her granddaughter will likely drive her home via private vehicle. She will follow up with her PCP and discharge plan of care.
[2022-06-29 15:14] VITALS: BP 93/54; PULSE 53; RESP 23; TEMP 36.1; O2SAT 90
--- NOTE | 2022-06-29 15:49 | PT.INTREAT ---
Date of service: 06/30/22 Time of Service: 15:49 PT Notes Visit Reasons: UTI,Pneumonia Physical Therapy Inpatient Treatment Note Date: 06/29/2022 Precautions: Fall. Standard. Activity as tolerated.? Subjective: Denies dizziness. Feels a lot better now that she has eaten lunch. Objective: General Observation: Seated on chair. On 1 L of oxygen per minute. Mental Status: Alert and oriented as to person, place, time, and purpose. Able to pay attention, focus, and respond appropriately. Pain: Denies Vital Signs: WNL as closely monitored by Bed Mobility/Transfers: Sit to stand contact guard assist Stand to sit contact guard assist Bed to bedside commode contact guard assist Bedside commode to bed contact guard assist Bed to reclining chair contact guard assist Reclining chair to bed contact guard assist Gait: Instructed patient with level surface ambulation of 30 feet x 2 requiring contact guard assist. Cynthia decreased. Step height decreased. Step length decreased.? Reported fatigue and requested to sit down to rest.? Minimal shortness of breath that subsided with rest. Balance: Static Sitting: Normal Dynamic Sitting: Normal Static Standing: Fair Dynamic Standing: Fair Assessment: Did a lot better in the afternoon after having eaten a good lunch. Stlll out of breath and limited by fatigue. May need FWW for support. DISCHARGE RECOMMENDATIONS: [] ? Home with no services [] [X] ? Home with services.? Patient will benefit from home health PT services in order to progress mobility level using least restrictive assistive ambulatory device, assess home safety, identify additional equipment needs, and establish a functional maintenance program that will increase ability of patient to remain at home. [] ? Home with outpatient PT [] [] ? SNF for continued rehabilitation [] [] ? [facility] [facility] [employer] [facility] [] [] ? SNF versus LTC based on ability to participate and progress [] TREATMENT CODE/TIME: 37138 x 47 minutes beginning at 15:49 PM.
--- NOTE | 2022-06-29 17:24 | CHAPLAIN ---
Siomara was up in the chair when I visited. She said she was cold, so I got her another heated one. 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 Siomara took care of him. She lives with a granddaughter and two year-old great grand daughter.
[2022-06-29] MEDS: Rivaroxaban 10 MG TABLET 20 MG PO (19:38)
[2022-06-29] MEDS: Atorvastatin 40 MG TAB 80 MG PO (19:38)
[2022-06-29 22:21] VITALS: BP 90/47; PULSE 71; RESP 22; TEMP 36; O2SAT 96
[2022-06-30 05:06] VITALS: BP 80/54; PULSE 95; RESP 22; O2SAT 96
[2022-06-30 05:20] VITALS: BP 90/56
[2022-06-30] MEDS: Normal Saline 1,000 ML 75 ML IV (05:29)
[2022-06-30 06:30] LABS: Abs Immature Grans 0.28 10^3/uL (0.0-0.06); Absolute Basophil Count 0.01 10^3/uL (0.0-0.2); Absolute Monocyte Count 0.61 10^3/uL (0.1-0.8); Absolute Neutrophil Count 11.45 10^3/uL (1.2-6.7); Basophils % 0.1; Eosinophils % 0.5; HCT 27.2 % (36.0-46.0); HGB 8.7 g/dL (11.2-15.7); Immature Grans % 2.2; Lymphocytes % 2.7; MCH 29.7 pg (27.0-33.0); MCV 93 fL (80-95); MPV 11.1 fL (8.0-11.0); Monocytes % 4.8; Neutrophils % 89.7; Platelet Count 182 10^3/uL (130-400); RBC 2.93 10^6/uL (3.93-5.22); RDW 15.6 % (11.7-14.6); RDW-SD 52.9 fL; WBC 12.77 10^3/uL (4.4-10.8)
[2022-06-30 06:40] LABS: Absolute Eosinophil Count 0.06 10^3/uL (0.0-0.7); Absolute Lymphocyte Count 0.34 10^3/uL (1.2-3.4)
[2022-06-30 07:40] VITALS: BP 100/60; PULSE 87; RESP 18; TEMP 36.3; O2SAT 96
[2022-06-30 07:58] LABS: Anion Gap 8.9 mmol/L (3-11); BUN 78 mg/dL (7-18); CO2 22.1 mmol/L (21.0-32.0); CREATININE 1.9 mg/dL (0.55-1.02); Calcium 8.3 mg/dL (8.5-10.1); Chloride 107 mmol/L (98-107); Glucose 104 mg/dL (74-106); Potassium 4.6 mmol/L (3.5-5.1); Sodium 138 mmol/L (136-145)
[2022-06-30] MEDS: guaiFENesin 600 MG TABCR PO ×2 (08:02→20:10)
[2022-06-30] MEDS: Tiotropium/Olodaterol 10 PUFF INHALER 2 PUFF IH (08:02)
--- NOTE | 2022-06-30 10:07 | CMPROGNOTE_ITS ---
- If Service Date Differs Date of service: 06/30/22 Time of Service: 10:07 Care Management Progress Note S/O: Siomara was sitting up in her chair when CM met with her. Her brother was in the room visiting. She stated that she is feeling ok today, and per provider, she will likely remain for a couple more days. She stated that she does not have oxygen at home, and will refuse it if it is offered. CM asked about a walker, and she stated that she does not want one either, but will work with PT, and may agree to one if it is recommended. Per report, she is being treated empirically while awaiting culture results. CM will continue to follow. A: Siomara is a 77 year old female admitted to [facility] on 06/28/22 for a UTI, pneumonia. P: Siomara is being treated for a UTI, awaiting sensitivities. Once she becomes medically cleared, she will return home with a resumption of services. Her granddaughter will likely drive her home via private vehicle. She will follow up with her PCP and discharge plan of care.
[2022-06-30 15:12] VITALS: BP 108/65; PULSE 79; RESP 19; TEMP 36.5; O2SAT 98
--- NOTE | 2022-06-30 15:34 | W.PM.PROGNOT ---
Date of Service Date of service: 06/30/22 Time of Service: 15:34 Assessment and Plan Assessment and plan (1) Bacteremia due to Klebsiella pneumoniae: Status: Acute Assessment and plan: blood cultures growing gram neg rods, suspect same as in urine repeat cultures drawn this morning and pending. anticipate 2 weeks of levaquin based on urine sensitivities from today if these cultures negative. (2) Acute UTI: Status: Acute Assessment and plan: growing kleb pneum continue levaquin as sensitivities returned, (3) Pneumonia: Status: Acute Assessment and plan: should be covered with Levaquin continue pulmonary toilet inhalers (4) Weakness: Status: Acute Assessment and plan: PT/OT (5) Atrial fibrillation: Status: Chronic Assessment and plan: rate controlled anticoagulated on xarelto discussed with DR Cabrera. Qualifiers: Atrial fibrillation type: permanent Qualified Code(s): I48.2 - Chronic atrial fibrillation Subjective Subjective Patient reports: no new complaints, tolerating liquids well, tolerating a regular diet, voiding w/o difficulty and afebrile; denies shortness of breath Exam Const General: cooperative, comfortable and no acute distress Orientation: alert, awake and oriented x3 HENMT Head: normal to inspection, normocephalic and atraumatic Mouth: moist mucous membranes abnormal (dry) Eyes General: appearance normal, both eyes and all related structures Conjunctivae: conjunctivae normal Neck Neck: normal visual inspection, full ROM and trachea midline Resp Effort & Inspection: normal respiratory effort and able to speak in complete sentences Auscultation: diminished lung sounds bilaterally in the lower lung moses and wheezes (Occasionally scattered throughout, partially clear with cough) Cardio Rate: regular rate Rhythm: abnormal rhythm irregularly irregular GI Palpation: soft, no guarding and nontender Auscultation: normal bowel sounds Back/Spine/Pelvis Back: No back tenderness Skin General skin exam: no rashes or lesions noted Neuro General: patient alert, patient awake, patient oriented x3 and moves all extremities Cognition: normal cognition Speech: speech normal Gait: normal gait Motor: muscle tone normal throughout Extrem General: normal to inspection, full ROM, capillary refill normal, no pedal edema and no calf tenderness Psych Appearance: grossly normal Mental Status: mental status grossly normal Objective Last Vital Signs Temp 36.5 C 06/30/22 15:12 Pulse 79 06/30/22 15:12 Resp 19 06/30/22 15:12 BP 108/65 06/30/22 15:12 Pulse Ox 98 06/30/22 15:12 Laboratory Results - last 24 hr 06/30/22 06/30/22 06:05 06:05 WBC 12.77 H RBC 2.93 L Hgb 8.7 L Hct 27.2 L MCV 93 MCH 29.7 MCHC 32.0 RDW 15.6 H Plt Count 182 MPV 11.1 H Immature Gran % 2.2 Neutrophils % 89.7 Lymphocytes % 2.7 Monocytes % 4.8 Eosinophils % 0.5 Basophils % 0.1 Nucleated RBC % 0.0 Absolute Neutrophils 11.45 H Absolute Lymphocytes 0.34 L Absolute Monocytes 0.61 Absolute Eosinophils 0.06 Absolute Basophils 0.01 Sodium 138 Potassium 4.6 Chloride 107 Carbon Dioxide 22.1 Anion Gap 8.9 BUN 78 H Creatinine 1.9 H Est GFR (CKD-EPI 2020) 27.20 Glucose 104 Calcium 8.3 L
--- NOTE | 2022-06-30 15:41 | PT.INTREAT ---
Date of service: 06/30/22 Time of Service: 10:01 PT Notes Visit Reasons: UTI,Pneumonia Inpatient Physical Therapy Treatment Note [facility] Date: 06/30/2022 PRECAUTIONS: Activity as tolerated SUBJECTIVE: Jessica is pleasant and agreeable to participating in PT. She reports that she feels somewhat weaker compared to her baseline level of function. She reports that she has quite a bit of help at home. OBJECTIVE: PAIN: No c/o pain BED MOBILITY/TRANSFERS Supine-sit: I Sit-stand: SBA Stand-sit: SBA GAIT: Assistive Device: SPC Weight bearing: Full Assistance: CGA - SBA Distance: 40' x2 + 80' in a.m.; 75' x2 in p.m. Deviation: SOB, seated rest x2, LOB with self-correction x3, 1L O2 NC TOILETING: Patient toileted with supervision STAIRS: Up/down 3x4 and 2x6 using U rail/SPC and a step-to pattern with SBA ASSESSMENT: Patient tolerated a progression in gait distance with SPC support, however with several instances of LOB, with self-correction. PLAN: Continue with gait training and general conditioning for improved activity tolerance. TREATMENT CODE/TIME: Session 1: 16 minutes; 44434 (10:01) Session 2: 18 minutes; [id number] (15:46)
[2022-06-30] MEDS: levoFLOXacin 500 MG/100 ML BAG 66.667 MG IVPB (16:09)
[2022-06-30] MEDS: Normal Saline Flush 10 ML SYR (18:06)
[2022-06-30] MEDS: Rivaroxaban 10 MG TABLET 20 MG PO (20:10)
[2022-06-30] MEDS: Atorvastatin 40 MG TAB 80 MG PO (20:10)
[2022-06-30 23:33] VITALS: BP 96/60; PULSE 81; RESP 17; TEMP 37.1; O2SAT 99
[2022-07-01 07:15] VITALS: BP 108/65; PULSE 78; RESP 19; TEMP 36.5; O2SAT 98
[2022-07-01 08:00] VITALS: BP 92/54; PULSE 90; RESP 22; TEMP 36.3; O2SAT 94
[2022-07-01] MEDS: Tiotropium/Olodaterol 10 PUFF INHALER 2 PUFF IH (08:02)
--- NOTE | 2022-07-01 09:01 | NT_ITS ---
Occupational Therapy Notes 07/01/22 OT consult received and pts chart was reviewed. OT attempted to see pt 2x which pt refused consult noting she is not able to get up at this time and that she is tired. OT did explain consult importance to pt and pt agreed to perform consult tomorrow. OT will attempt consult again tomorrow. Ericka Sheldon, OTR/[facility] [place], [place]
[2022-07-01] MEDS: Polyethylene Glycol 3350 17 GM PACKET PO (09:10)
[2022-07-01] MEDS: guaiFENesin 600 MG TABCR PO ×2 (09:11→19:34)
--- NOTE | 2022-07-01 12:19 | CMPROGNOTE_ITS ---
- If Service Date Differs Date of service: 07/01/22 Time of Service: 12:19 Care Management Progress Note S/O: Siomara was lying in bed when CM met with her. She stated that she is not feeling well today. Per report, her abdomen has been tender and distended, and her blood pressure was soft this morning. She is being treated with IV abx currently, awaiting sensitivities. CM will continue to follow. A: Siomara is a 77 year old female admitted to [facility] on 06/28/22 for a UTI, pneumonia. P: Siomara is being treated for a UTI, awaiting sensitivities. Once she becomes medically cleared, she will return home with a resumption of services. Her granddaughter will likely drive her home via private vehicle. She will follow up with her PCP and discharge plan of care.
[2022-07-01] MEDS: Ondansetron O.D.T. 4 MG TABEF PO (12:25)
--- NOTE | 2022-07-01 14:02 | DI.RAD_ITS ---
Exam(s) XR ABDOMEN FLAT UPRIGHT EXAM: XR ABDOMEN FLAT UPRIGHT CLINICAL HISTORY: abdominal pain TECHNIQUE: COMPARISON: CT CT RENAL COLIC WO from 05/20/2022 FINDINGS: Three views were obtained. Left pleural effusion again noted as seen on prior examinations period th ere are bilateral ureteral stents in position. There are multiple vascular clips in the right upper quadrant. There is a moderate amount of gas in the colon. No evidence of obstruction. No gross org anomegaly. IMPRESSION: Left pleural effusion, otherwise no evidence of acute process RADIATION DOSE DELIVERED: Total DLP
--- NOTE | 2022-07-01 14:15 | RT.EKG_ITS ---
APPROVED REPORT Exam: Resting ECG Reason for Exam: IRREGULAR RHYTHM Patient Location: I HR:90 bpm ECG Measurements Heart Rate 90 AXIS VT [id number] P [id number] QRSd 106 QRS 25 QT 336 T 48 QTc 411 Conclusion Atrial fibrillation...V-rate 76- 78, irreg A-activity Low voltage, extremity and precordial leads...extremity<0.5mV, precordial<1.0mV Poor R wave progression
[2022-07-01 14:17] VITALS: BP 90/65; PULSE 104; RESP 16; TEMP 36.6; O2SAT 95
--- NOTE | 2022-07-01 14:57 | NUR.NOTE ---
Nursing Note: Patient returns from X-ray, she feels dizzy, lightheaded , increased nausea. VS take, head to toe assessment taken. Changes, heart rate is elevated and now irregular. Charge nurse updated, Md notified. EkG was taken. Results forwarded to the provider. Granddaughter is present, she is updated. Patient's daughter called during this time frame. Granddaughter stated she will update mother.
--- NOTE | 2022-07-01 16:01 | CHAPLAIN ---
Siomara said she'd had a rough night and was not feeling very well today. She said she is most comfortable when she's left alone to sleep and she doesn't want to be interrupted. Her granddaughter, with whom she lives, visited this morning.
--- NOTE | 2022-07-01 17:19 | W.PM.PROGNOT ---
Date of Service Date of service: 07/01/22 Time of Service: 17:19 Assessment and Plan Assessment and plan (1) Bacteremia due to Klebsiella pneumoniae: Status: Acute Assessment and plan: blood cultures growing gram neg rods, suspect same as in urine repeat cultures negative anticipate 2 weeks of levaquin based on urine sensitivities from today if these cultures negative. (2) Acute UTI: Status: Acute Assessment and plan: growing kleb pneum continue levaquin as sensitivities returned, (3) Pneumonia: Status: Acute Assessment and plan: should be covered with Levaquin continue pulmonary toilet inhalers (4) Weakness: Status: Acute Assessment and plan: PT/OT (5) Atrial fibrillation: Status: Chronic Assessment and plan: rate controlled anticoagulated on xarelto discussed with DR Cabrera. Qualifiers: Atrial fibrillation type: permanent Qualified Code(s): I48.2 - Chronic atrial fibrillation Subjective Subjective Patient reports: no new complaints, feels better and tolerating a regular diet; denies diarrhea, vomiting, shortness of breath or fever Interval history since last seen: Abdominal pain, writhing, 06/21 pain - surgery consulted. Abd xr done. Exam Narrative Exam Narrative: Guarding abdomen, will not allow an exam, writhing. Const General: cooperative, frail appearing, ill appearing and lethargic Nutritional Appearance: cachectic and malnourished Orientation: alert and oriented to place HENMS Head: normal to inspection Other: She has some fine telangiectasias on both cheeks and nose. Eyes General: appearance normal, both eyes and all related structures Neck Neck: no lymphadenopathy, trachea midline, supple and no JVD Thyroid: thyroid normal Lymphatic: no lymphadenopathy noted Resp Effort & Inspection: decreased respiratory effort and no respiratory distress Auscultation: clear to auscultation bilaterally and diminished lung sounds Cardio Rate: regular rate Heart Sounds: S1 normal and S2 normal GI Inspection: normal to inspection, non-distended and scar Palpation: soft, no guarding, no hernias and nontender Percussion: normal to percussion Auscultation: hypoactive bowel sounds Skin General skin exam: turgor decreased Objective Last Vital Signs Temp 36.6 C 07/01/22 14:17 Pulse 104 H 07/01/22 14:17 Resp 16 07/01/22 14:17 BP 90/65 L 07/01/22 14:17 Pulse Ox 95 07/01/22 14:17 Reviewed Pertinent PMH: Yes
[2022-07-01] MEDS: Rivaroxaban 15 MG TABLET PO (19:33)
[2022-07-01] MEDS: Normal Saline 1,000 ML 75 ML IV (19:37)
--- NOTE | 2022-07-01 19:44 | W.SURGCON ---
Date of service: 07/01/22 Time of Service: 14:00 Assessment and Plan Assessment and plan (1) Abdominal pain: Status: Acute Assessment and plan: What ever caused her abdominal pain this morning seems to have resolved. I saw her twice this afternoon, and her abdomen remains soft, and nondistended for me. She is not tender. I suppose a CAT scan of the abdomen and pelvis would be the definitive test to help rule out other potential causes of abdominal pain. Certainly, her surgical history puts her at risk for things like bowel obstructions, but KUB does not really support that diagnosis, nor does the physical exam. I do think it would be reasonable to try to increase her bowel regimen as constipation may have played a role in her discomfort earlier. History of Present Illness History of Present Illness Chief Complaint: Nausea and vomiting Narrative: Siomara is a 77-year-old woman who was admitted to the hospital several days ago with symptoms consistent with failure to thrive. She does not remember how she came to the hospital. Emergency department records indicate she was brought by EMS. Her initial presentation seem consistent with sepsis, and the most likely sources were a urinary tract infection, or possibly left lower lobe pneumonia. She was admitted to the hospital and started on antibiotics. This morning, she had some abdominal distention, and a few episodes of small-volume bilious emesis. By report, at 1 point, she was writhing in pain in the bed. She went to radiology, and underwent a flatplate of her abdomen. There were some air-fluid levels mostly in the large intestine, and the overall report of that abdominal series was negative. I am told that she was writhing in pain when she returned from the x-ray. By the time I was asked to see her, she had fallen asleep. She tells me that she does experience some abdominal pain from time to time. She is not able to identify any specific triggers, or relieving factors. She does not recall specifically having nausea this morning, or the episodes of vomiting. Her history, however, is quite inconsistent and lacks detail. During the time of my evaluation, she does not report any complaints, and she would like to go back to sleep. Consults Consult date: 07/01/22 Requesting physician: Maye Perla Review of Systems Narrative: She denies any significant findings regarding eyes, ears nose throat, cardiovascular, respiratory, and neurologic systems. She does report the occasional abdominal pain. She denies any change in her bowel habits. She also reports that she is felt increasingly tired over the past several weeks. Otherwise, she is not able to participate in a detailed review of systems. FORMERLY [facility] All Active Problems (Updated 07/01/22 @ 19:57 by Pramod Ward MD) Abdominal pain (Acute) Bacteremia due to Klebsiella pneumoniae (Acute) Weakness (Acute) Pneumonia (Acute) Acute uremia (Acute) Acute UTI (Acute) Gross hematuria (Acute) 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) Anemia (Chronic) Bilateral hydronephrosis (Acute) Acute renal failure (Acute) Extrinsic ureteral obstruction (Acute) AAA (abdominal aortic aneurysm) (Chronic) Pulmonary emboli (Chronic) Pneumonia (Acute) Respiratory failure with hypoxia and hypercapnia (Acute) NSCLC of right lung (Acute) Palliative care patient (Acute) Pulmonary hypertension (Chronic) Cor pulmonale (Acute) Weakness of both legs (Acute) Hypoxia (Acute) Requires supplemental oxygen (Acute) Hypoxia (Acute) Shortness of breath (Acute) CHF (congestive heart failure) (Chronic) HTN (hypertension) (Chronic) Atrial fibrillation (Chronic) Smoker (Acute) COPD (chronic obstructive pulmonary disease) (Chronic) Medical History Acute and chronic respiratory failure ([id number]) Acute exacerbation of chronic obstructive pulmonary disease Acute exacerbation of congestive heart failure Acute on chronic respiratory failure with hypoxia and hypercapnia Acute respiratory acidosis Acute respiratory failure with hypoxia and hypercapnia LORENE (acute kidney injury) Atrial fibrillation Bilateral hydronephrosis Chronic respiratory failure with hypoxia and hypercapnia COPD (chronic obstructive pulmonary disease) Hemoptysis HTN (hypertension) Hydronephrosis Hydronephrosis Hypercholesteremia Lung cancer Lung mass Pulmonary hypertension Smoker Surgical History S/P appendectomy S/P cholecystectomy S/P hysterectomy Family History Father Hemochromatosis Cirrhosis due to hemochromatosis Diabetes Daughter Heart disease OK in 40s Social History Smoking/Tobacco Use Status: Current-Occasional Tobacco Type: cigarettes Years smoked: 50 Quit status: considering quitting Counseling given: patient declined Smoking risk assessment performed?: Yes Alcohol Intake: never Drug use: Never Substance use type: does not use What type of physical activity do you participate in: none Do you feel safe at home: Yes Do you feel safe in your relationship?: Yes Additional Social history: lives alone, but a lot of family in the area. of lung cancer Exam Const General: cooperative, frail appearing, ill appearing and lethargic Nutritional Appearance: cachectic and malnourished Orientation: alert and oriented to place HENMT Head: normal to inspection Other: She has some fine telangiectasias on both cheeks and nose. Eyes General: appearance normal, both eyes and all related structures Neck Neck: no lymphadenopathy, trachea midline, supple and no JVD Thyroid: thyroid normal Lymphatic: no lymphadenopathy noted Resp Effort & Inspection: decreased respiratory effort and no respiratory distress Auscultation: clear to auscultation bilaterally and diminished lung sounds Cardio Rate: regular rate Heart Sounds: S1 normal and S2 normal GI Inspection: normal to inspection, non-distended and scar Palpation: soft, no guarding, no hernias and nontender Percussion: normal to percussion Auscultation: hypoactive bowel sounds Skin General skin exam: turgor decreased Results Last Vital Signs Temp 97.9 F 07/01/22 14:17 Pulse 104 H 07/01/22 14:17 Resp 16 07/01/22 14:17 BP 90/65 L 07/01/22 14:17 Pulse Ox 95 07/01/22 14:17 Labs Result diagrams: 06/30/22 06:05 06/30/22 06:05
[2022-07-01] MEDS: Normal Saline Flush 10 ML SYR (19:58)
[2022-07-01 23:34] VITALS: BP 94/52; PULSE 82; RESP 16; TEMP 36.6; O2SAT 97
[2022-07-02 06:18] LABS: Absolute Basophil Count 0.01 10^3/uL (0.0-0.2); Absolute Monocyte Count 0.49 10^3/uL (0.1-0.8); Basophils % 0.1; Eosinophils % 0.1; HCT 28.8 % (36.0-46.0); HGB 9.1 g/dL (11.2-15.7); Immature Grans % 0.7; Lymphocytes % 2.6; MCH 29.8 pg (27.0-33.0); MCHC 31.6 % (32.0-36.0); MCV 94 fL (80-95); MPV 10.5 fL (8.0-11.0); Monocytes % 3.5; Platelet Count 202 10^3/uL (130-400); RBC 3.05 10^6/uL (3.93-5.22); RDW 15.9 % (11.7-14.6); RDW-SD 55.2 fL; WBC 13.98 10^3/uL (4.4-10.8)
[2022-07-02 06:27] LABS: Absolute Eosinophil Count 0.01 10^3/uL (0.0-0.7); Absolute Lymphocyte Count 0.36 10^3/uL (1.2-3.4)
[2022-07-02 06:38] LABS: Anion Gap 8.1 mmol/L (3-11); BUN 65 mg/dL (7-18); CO2 22.9 mmol/L (21.0-32.0); CREATININE 1.7 mg/dL (0.55-1.02); Calcium 8.3 mg/dL (8.5-10.1); Chloride 109 mmol/L (98-107); Estimated GFR 31.08 (mL/min/1.73m2); Glucose 75 mg/dL (74-106); Magnesium 1.6 mg/dL (1.8-2.4); Sodium 140 mmol/L (136-145)
[2022-07-02 06:39] LABS: Potassium 5.7 mmol/L (3.5-5.1)
[2022-07-02] MEDS: Tiotropium/Olodaterol 10 PUFF INHALER 2 PUFF IH (07:53)
[2022-07-02 08:18] VITALS: BP 96/62; PULSE 75; RESP 18; TEMP 35.9; O2SAT 98
--- NOTE | 2022-07-02 08:41 | PDOC.CMPRO ---
- If Service Date Differs Date of service: 07/02/22 Time of Service: 08:41 Care Management Progress Note S/O: Siomara was sitting up in her chair when CM met with her. She reported that she is feeling better today, although still not very well. She reported that she is keeping her family up to date, although she does not always take their calls. She stated that she is hungry and thirsty, and is NPO, waiting for a CT scan. CM will continue to follow. A: Siomara is a 77 year old female admitted to [facility] on 06/28/22 for a UTI, pneumonia. P: Siomara is being treated for a UTI, awaiting sensitivities. Once she becomes medically cleared, she will return home with a resumption of services. Her granddaughter will likely drive her home via private vehicle. She will follow up with her PCP and discharge plan of care.
--- NOTE | 2022-07-02 09:46 | PGE_ITS ---
Date of Service Date of service: 07/02/22 Time of Service: 09:46 Assessment and Plan Assessment and plan (1) Abdominal pain: Status: Acute Assessment and plan: at this time, I don't see any etiology for acute pain. Will start clears Pt does ahve lg amount of stool in right colon- the oral CT contrast should purge this. (2) Bacteremia due to Klebsiella pneumoniae: Status: Acute Assessment and plan: levaquin (3) Retroperitoneal mass: Status: Acute Assessment and plan: Patient is seen by urology and oncology at [facility]. It is unclear exactly what this retroperitoneal mass is that is causing urinary obstruction. They do not feel that it is truly retroperitoneal fibrosis. The location is not amendable to biopsy. She is supposed to be following up with rheumatology for consideration of steroid therapy. -I did review the CT W/ Rads. The fibrosis has not increased in size. Her stents/nephrostomy tubes are functional. she has severe rebal atrophy (4) Aortic mural thrombus: Status: Chronic Assessment and plan: CHRONIC abdominal aortic dissection maintain control of BP STOP smoking (5) Pneumonia: Status: Acute (6) Extrinsic ureteral obstruction: Status: Acute Assessment and plan: see #2 (7) AAA (abdominal aortic aneurysm): Status: Chronic Assessment and plan: see #3 (8) Pulmonary emboli: Status: Chronic Assessment and plan: currently fully anti coag (9) Bilateral hydronephrosis: Status: Acute (10) NSCLC of right lung: Status: Acute Assessment and plan: Deemed not a surgical candidate due to her poor pulmonary functional status with an FEV1 of 45%. She was treated with radiation only. On her follow-up CT post XRT, there were 7 changes that they could not decide if it was consistent with metastatic disease or just postinflammatory change. They are currently in the watching and waiting phase until it is time to do a follow-up PET scan. She continues to smoke. (11) Pulmonary hypertension: Status: Chronic (12) Cor pulmonale: Status: Acute (13) Smoker: Status: Acute (14) COPD (chronic obstructive pulmonary disease): Status: Chronic (15) Atrial fibrillation: Status: Chronic Qualifiers: Atrial fibrillation type: permanent Qualified Code(s): I48.2 - Chronic atrial fibrillation (16) HTN (hypertension): Status: Chronic Qualifiers: Hypertension type: essential hypertension Qualified Code(s): I10 - Essential (primary) hypertension (17) CHF (congestive heart failure): Status: Chronic Qualifiers: Heart failure chronicity: chronic Heart failure type: diastolic Qualified Code(s): I50.32 - Chronic diastolic (congestive) heart failure (18) H/O dissecting abdominal aortic aneurysm repair: Status: Acute Assessment and plan: CHRONIC dissecton high risk on blood thinners. However, she has a. fib and hx of PE. Subjective Subjective Interval history since last seen: Pt is doing well. no headaches. No CP or SOB. no productive cough. no dysuria. no leg pain or swelling. Pt has moved her bowels. She still has some pain, but not like it was. She is hungry and would like to eat. She drank the oral contrast w/ any N/V. She is stil waiting to go down to CT. Exam GI Other: mild distention. + BS. minimal tenderness Objective Last Vital Signs Temp 35.9 C L 07/02/22 08:18 Pulse 75 07/02/22 08:18 Resp 18 07/02/22 08:18 BP 96/62 L 07/02/22 08:18 Pulse Ox 98 07/02/22 08:18 Laboratory Results - last 24 hr 07/02/22 07/02/22 06:03 06:03 WBC 13.98 H RBC 3.05 L Hgb 9.1 L Hct 28.8 L MCV 94 MCH 29.8 MCHC 31.6 L RDW 15.9 H Plt Count 202 MPV 10.5 Immature Gran % 0.7 Neutrophils % 93.0 Lymphocytes % 2.6 Monocytes % 3.5 Eosinophils % 0.1 Basophils % 0.1 Nucleated RBC % 0.0 Absolute Neutrophils 13.00 H Absolute Lymphocytes 0.36 L Absolute Monocytes 0.49 Absolute Eosinophils 0.01 Absolute Basophils 0.01 Sodium 140 Potassium 5.7 H D Chloride 109 H Carbon Dioxide 22.9 Anion Gap 8.1 BUN 65 H Creatinine 1.7 H Est GFR (CKD-EPI 2020) 31.08 Glucose 75 Calcium 8.3 L Magnesium 1.6 L
[2022-07-02] MEDS: Polyethylene Glycol 3350 17 GM PACKET PO ×2 (09:53→19:46)
[2022-07-02] MEDS: guaiFENesin 600 MG TABCR PO ×2 (09:54→19:46)
[2022-07-02] MEDS: Docusate Sodium 100 MG CAP PO ×2 (09:54→19:46)
[2022-07-02] MEDS: Normal Saline 1,000 ML 75 ML IV (09:59)
[2022-07-02] MEDS: Sodium Zirconium Cyclosilicate 10 GM PKT PO (10:51)
--- NOTE | 2022-07-02 12:39 | NUR.NOTE ---
Nursing Note: Patient has consumed 80-90 % of the contrast
--- NOTE | 2022-07-02 13:00 | PT.INTREAT ---
Date of service: 07/02/22 Time of Service: 08:24 PT Notes Visit Reasons: UTI,Pneumonia Inpatient Physical Therapy Treatment Note [facility] Date: 07/02/2022 PRECAUTIONS: Activity as tolerated SUBJECTIVE: Jessica is pleasant and agreeable to participating in PT. She reports that she feels weak and that she is thirsty and hungry because she hasn't eaten in two days. OBJECTIVE: PAIN: No c/o pain BED MOBILITY/TRANSFERS Sit-stand: SBA Stand-sit: SBA GAIT: Assistive Device: FWW Weight bearing: Full Assistance: SBA Distance: 40' + 80' Deviation: SOB, seated rest x1, 1L O2 NC TOILETING: Patient toileted with supervision ASSESSMENT: Patient demonstrates improved safety and stability with use of FWW vs SPC or no AD. She demonstrates decreased activity tolerance today. PLAN: Continue with gait training and general conditioning for improved activity tolerance. TREATMENT CODE/TIME: Session 1: 25 minutes; [id number] x2 (08:24) Session 2: Patient refused
--- NOTE | 2022-07-02 13:28 | DI.CT_ITS ---
Exam(s) CT ABDOMEN PELVIS WO EXAM: CT ABDOMEN PELVIS WO CLINICAL HISTORY: Abdominal pain. TECHNIQUE: Imaging Protocol: Axial computed tomography images with coronal and sagittal reformatted images were created and reviewed CONTRAST MATERIAL: Intravenous: none Oral: Yes COMPARISON: CT CT RENAL COLIC WO from 05/20/2022 FINDINGS: VISUALIZED LUNG BASES: There is a moderate sized left pleural effusion, increased in size from the pr ior study. There is associated volume loss in the basal segments of the left lower lobe. There is a small right pleural effusion now seen, not previously evident. ABDOMEN: There is now mild-moderate ascites. This is predominantly around the liver in the upper abdomen and within the dependent aspect of the pelvis. LIVER: There are no obvious focal hepatic lesions evident of this noninfused study. GALLBLADDER/BILIARY: Gallbladder again noted to be surgically absent. CBD is not dilated. PANCREAS: No evidence of pancreatic mass nor dilatation of the pancreatic duct. SPLEEN: Spleen is not enlarged. No obvious intrasplenic lesions. ADRENALS: There are no significant adrenal masses. KIDNEYS:Bilateral double pigtail ureteral stents are seen. These extend from the renal pelves down i nto the urinary bladder and the amount of hydronephrosis in both kidneys has significantly decreased, presently mild. The ureters are not dilated. Urinary bladder is not distended. No solid renal mas ses evident. ABDOMINAL AORTA: Mild fusiform abdominal aortic aneurysm with maximum external diameter 3.3 cm. Ther e is a chronic dissection in the abdominal aorta with calcified intimal flap again noted from the SMA level down to the aortic bifurcation. Common iliac arteries are calcified but not enlarged. LYMPH NODES: There is no retroperitoneal nor paraaortic adenopathy. ABDOMINAL WALL: No evidence of significant anterior abdominal wall nor inguinal hernia. GI: There is oral contrast in somewhat distended stomach and duodenum. Small bowel loops exhibit upp er normal diameters. The oral contrast does not appear to have appreciably the into the colon althou gh there is some mild hyperdense material in the cecum noted. PELVIS: LYMPH NODES: There is no intrapelvic nor inguinal adenopathy. GI: Appendix not able to be identified.No evidence of sigmoid diverticulitis. URINARY BLADDER: No calculi nor obvious masses evident REPRODUCTIVE: Uterus is atrophic or surgically absent. No obvious abnormal adnexal masses. OSSEOUS: No significant osseous lesions. No fractures. IMPRESSION: 1. Compared to the prior CT scan of 05/20/2022 there has been interval placement of bilat double-pigt ail ureteral stents and some improvement in the amount of bilateral hydronephrosis. Stents appear to be in satisfactory position bilaterally. 2. There is small-moderate amount of ascites which is mostly perihepatic and in the lower pelvis. No ascites was evident on the prior study. In addition, size of the left pleural effusion has increase d and there is now a small right pleural effusion, not previously present. 3. Previous cholecystectomy. No gross dilatation of the biliary tree. 4. Fusiform abdominal aortic aneurysm and chronic aortic dissection with calcified intimal flap thro ughout the length of the abdominal aorta. The maximum diameter of the abdominal aorta is 3.3 cm. 5. Administered oral contrast has not yet reached colon although there does appear to be a small tirso unt of hyperdense material in the lumen of the ascending-right colon. RADIATION DOSE DELIVERED: 628.73mGy.cm Total DLP 628.73mGy.cm Total DLP DATA REPOSITORY: All CT scans at this facility are submitted to the National Radiology Data Registry (NRDR) Dose Index Registry (DIR) with the [employer] (ACR). RADIATION OPTIMIZATION: All CT scans at this facility use at least one of these dose optimization te chniques: automated exposure control; mA and/or kV adjustment per patient size (includes targeted exa ms where dose is matched to clinical indication); or iterative reconstruction.
[2022-07-02 15:30] VITALS: BP 79/53; PULSE 63; RESP 16; TEMP 36.4; O2SAT 93
--- NOTE | 2022-07-02 15:56 | W.PM.PROGNOT ---
Date of Service Date of service: 07/02/22 Time of Service: 15:56 Assessment and Plan Assessment and plan (1) Bacteremia due to Klebsiella pneumoniae: Status: Acute Assessment and plan: blood cultures growing gram neg rods, suspect same as in urine repeat cultures negative anticipate 2 weeks total of levaquin (2) Acute UTI: Status: Acute Assessment and plan: growing kleb pneum continue levaquin it is sensitive to kleb pneu (3) Pneumonia: Status: Acute Assessment and plan: should be covered with Levaquin continue pulmonary toilet inhalers Sputum cx unacceptable and not of value (4) Weakness: Status: Acute Assessment and plan: PT/OT - progressing, should improve after abd pain subsides (5) Atrial fibrillation: Status: Chronic Assessment and plan: rate controlled anticoagulated on xarelto discussed with Dr. Cabrera. Qualifiers: Atrial fibrillation type: permanent Qualified Code(s): I48.2 - Chronic atrial fibrillation Subjective Subjective Patient reports: no new complaints, pain is less, voiding w/o difficulty, bowel movement (large) and afebrile; denies blood in stool, nausea, vomiting or shortness of breath Interval history since last seen: CT abdomen ordered per recommendation of surgery. NPO until after CT and ok per surgery - improved today, did have BM last night. Exam Const General: cooperative, frail appearing, ill appearing and lethargic Nutritional Appearance: cachectic and malnourished Orientation: alert and oriented to place HENMT Head: normal to inspection Other: She has some fine telangiectasias on both cheeks and nose. Eyes General: appearance normal, both eyes and all related structures Neck Neck: no lymphadenopathy, trachea midline, supple and no JVD Thyroid: thyroid normal Lymphatic: no lymphadenopathy noted Resp Effort & Inspection: decreased respiratory effort and no respiratory distress Auscultation: clear to auscultation bilaterally and diminished lung sounds Cardio Rate: regular rate Heart Sounds: S1 normal and S2 normal GI Inspection: normal to inspection and non-distended Palpation: soft, no guarding, no hernias and nontender Percussion: normal to percussion Skin General skin exam: turgor decreased Objective Last Vital Signs Temp 35.9 C L 07/02/22 08:18 Pulse 75 07/02/22 08:18 Resp 18 07/02/22 08:18 BP 96/62 L 07/02/22 08:18 Pulse Ox 98 07/02/22 08:18 Laboratory Results - last 24 hr 07/02/22 07/02/22 06:03 06:03 WBC 13.98 H RBC 3.05 L Hgb 9.1 L Hct 28.8 L MCV 94 MCH 29.8 MCHC 31.6 L RDW 15.9 H Plt Count 202 MPV 10.5 Immature Gran % 0.7 Neutrophils % 93.0 Lymphocytes % 2.6 Monocytes % 3.5 Eosinophils % 0.1 Basophils % 0.1 Nucleated RBC % 0.0 Absolute Neutrophils 13.00 H Absolute Lymphocytes 0.36 L Absolute Monocytes 0.49 Absolute Eosinophils 0.01 Absolute Basophils 0.01 Sodium 140 Potassium 5.7 H D Chloride 109 H Carbon Dioxide 22.9 Anion Gap 8.1 BUN 65 H Creatinine 1.7 H Est GFR (CKD-EPI 2020) 31.08 Glucose 75 Calcium 8.3 L Magnesium 1.6 L Reviewed Pertinent PMH: Yes
[2022-07-02] MEDS: levoFLOXacin 500 MG/100 ML BAG 66.66 MG IVPB (16:23)
[2022-07-02] MEDS: Atorvastatin 40 MG TAB 80 MG PO (19:46)
[2022-07-02] MEDS: Rivaroxaban 15 MG TABLET PO (19:46)
[2022-07-02 20:10] VITALS: BP 98/62; PULSE 72; TEMP 35.7; O2SAT 96
[2022-07-02 23:24] VITALS: BP 102/66; PULSE 76; RESP 20; TEMP 36.6; O2SAT 98
[2022-07-03] VITALS (8 sets, daily range): BP systolic 90–110; BP diastolic 56–64; PULSE 68–87; RESP 17–18; TEMP 35.8–37.5; O2SAT 96–97
[2022-07-03] MEDS: Normal Saline 1,000 ML 75 ML IV ×2 (01:28→16:55)
[2022-07-03] MEDS: Polyethylene Glycol 3350 17 GM PACKET PO ×2 (07:49→19:20)
[2022-07-03] MEDS: Docusate Sodium 100 MG CAP PO ×2 (07:49→19:20)
[2022-07-03] MEDS: guaiFENesin 600 MG TABCR PO ×2 (07:49→19:21)
[2022-07-03] MEDS: Tiotropium/Olodaterol 10 PUFF INHALER 2 PUFF IH (08:53)
[2022-07-03 09:10] LABS: Abs Immature Grans 0.06 10^3/uL (0.0-0.06); Absolute Basophil Count 0.01 10^3/uL (0.0-0.2); Absolute Lymphocyte Count 0.35 10^3/uL (1.2-3.4); Absolute Monocyte Count 0.44 10^3/uL (0.1-0.8); Basophils % 0.1; Eosinophils % 0.3; HCT 28.7 % (36.0-46.0); HGB 8.9 g/dL (11.2-15.7); Immature Grans % 0.5; MCH 29.5 pg (27.0-33.0); MCV 95 fL (80-95); MPV 10.1 fL (8.0-11.0); Monocytes % 3.8; Neutrophils % 92.3; Platelet Count 210 10^3/uL (130-400); RBC 3.02 10^6/uL (3.93-5.22); RDW-SD 55.3 fL
[2022-07-03 09:11] LABS: Absolute Eosinophil Count 0.03 10^3/uL (0.0-0.7); Absolute Neutrophil Count 10.71 10^3/uL (1.2-6.7)
[2022-07-03 09:24] LABS: Anion Gap 7.6 mmol/L (3-11); BUN 63 mg/dL (7-18); CO2 22.4 mmol/L (21.0-32.0); CREATININE 1.8 mg/dL (0.55-1.02); Chloride 105 mmol/L (98-107); Estimated GFR 29.02 (mL/min/1.73m2); Glucose 128 mg/dL (74-106); Magnesium 1.4 mg/dL (1.8-2.4); Potassium 4.5 mmol/L (3.5-5.1); Sodium 135 mmol/L (136-145)
--- NOTE | 2022-07-03 09:35 | PGE_ITS ---
Date of Service Date of service: 07/03/22 Time of Service: 09:35 Assessment and Plan Assessment and plan (1) H/O dissecting abdominal aortic aneurysm repair: Status: Acute (2) Abdominal pain: Status: Acute Assessment and plan: Patient has an extensive history of complications due to to her smoking including aneurysm and dissection that are both chronic. 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 She does have stents in place. These are followed by [facility]. She does go for regular stent change. And she will need to continue to do this. She has Klebsiella there is a chance that they could become colonized. Changed and the stents may need to be changed sooner then whenever her neck scheduled change it is. Currently she is tolerating clears. She had a bowel movement. She has no fever or white count. CTs scan did not show any acute abdominal processes. Continue treating UTI MiraLAX for constipation stop smoking- which pt refuses to do Follow-up with urology as previously scheduled at [facility]. She is also supposed to follow-up with rheumatology for consideration of treating fibrotic process with steroids. We will reevaluate at your request (3) Bacteremia due to Klebsiella pneumoniae: Status: Acute Subjective Subjective Interval history since last seen: Pt is doing well. no headaches. No CP or SOB. no productive cough. no d ysuria. no leg pain or swelling. She is tolerating clear liquids. She had a small smear of stool. She denies any abdominal pain. She denies any nausea. Exam Narrative Exam Narrative: Patient has a chronic cough from years of smoking and is on 2 L of oxygen. She has a few small scattered wheezes throughout. Abdomen is soft and nontender with good bowel sounds. She has internal stents and no nephrostomy tube. She has chronic A. fib and is on chronic blood thinners. There is no signs of any increase in the mural thrombus or in her chronic dissection or in the size of the aneurysm. Objective Last Vital Signs Temp 36.4 C L 07/03/22 07:04 Pulse 79 07/03/22 07:04 Resp 18 07/03/22 07:04 BP 90/58 L 07/03/22 07:04 Pulse Ox 96 07/03/22 07:04 Laboratory Results - last 24 hr 07/03/22 09:05 WBC 11.60 H RBC 3.02 L Hgb 8.9 L Hct 28.7 L MCV 95 MCH 29.5 MCHC 31.0 L RDW 16.0 H Plt Count 210 MPV 10.1 Immature Gran % 0.5 Neutrophils % 92.3 Lymphocytes % 3.0 Monocytes % 3.8 Eosinophils % 0.3 Basophils % 0.1 Nucleated RBC % 0.0 Absolute Neutrophils 10.71 H Absolute Lymphocytes 0.35 L Absolute Monocytes 0.44 Absolute Eosinophils 0.03 Absolute Basophils 0.01
--- NOTE | 2022-07-03 10:33 | W.PM.PROGNOT ---
Date of Service Date of service: 07/03/22 Time of Service: 10:33 Assessment and Plan Assessment and plan (1) Abdominal pain: Status: Acute Assessment and plan: Tolerating oral, has had a bowel movement. She has no fever or white count. CTs scan did not show any acute abdominal processes. Diet changed to heart healthy solids as tolerated. Continue treating UTI MiraLAX for constipation encourage her to stop smoking (2) Bacteremia due to Klebsiella pneumoniae: Status: Acute Assessment and plan: WBC 11.60 Continue Levofloxacin (3) Acute UTI: Status: Acute Assessment and plan: growing kleb pneum continue levaquin it is sensitive to kleb pneu (4) Pneumonia: Status: Acute Assessment and plan: should be covered with Levaquin continue pulmonary toilet inhalers Sputum cx unacceptable and not of value (5) Weakness: Status: Acute Assessment and plan: PT/OT - progressing (6) Atrial fibrillation: Status: Chronic Assessment and plan: rate controlled anticoagulated on xarelto 4 beat run of VT and lots of PVCs at rest - no chest pain, no shortness of breath, Mag 1.[address] Finnegan Qualifiers: Atrial fibrillation type: permanent Qualified Code(s): I48.2 - Chronic atrial fibrillation Subjective Subjective Patient reports: no new complaints, feels better, pain is less, tolerating a regular diet, flatus, bowel movement (large) and afebrile; denies diarrhea, blood in stool, nausea, vomiting or shortness of breath (not more than usual) Exam Narrative Exam Narrative: Abd soft, non-tender Const General: cooperative, frail appearing, ill appearing and lethargic Nutritional Appearance: cachectic and malnourished Orientation: alert and oriented to place [facility] Head: normal to inspection Other: She has some fine telangiectasias on both cheeks and nose. Eyes General: appearance normal, both eyes and all related structures Neck Neck: no lymphadenopathy, trachea midline, supple and no JVD Thyroid: thyroid normal Lymphatic: no lymphadenopathy noted Resp Effort & Inspection: decreased respiratory effort and no respiratory distress Auscultation: clear to auscultation bilaterally and diminished lung sounds Cardio Rate: regular rate Heart Sounds: S1 normal and S2 normal GI Inspection: normal to inspection and non-distended Palpation: soft, no guarding, no hernias and nontender Percussion: normal to percussion Skin General skin exam: turgor decreased Objective Last Vital Signs Temp 36.4 C L 07/03/22 07:04 Pulse 79 07/03/22 07:04 Resp 18 07/03/22 07:04 BP 90/58 L 07/03/22 07:04 Pulse Ox 96 07/03/22 07:04 Laboratory Results - last 24 hr 07/03/22 07/03/22 09:05 09:05 WBC 11.60 H RBC 3.02 L Hgb 8.9 L Hct 28.7 L MCV 95 MCH 29.5 MCHC 31.0 L RDW 16.0 H Plt Count 210 MPV 10.1 Immature Gran % 0.5 Neutrophils % 92.3 Lymphocytes % 3.0 Monocytes % 3.8 Eosinophils % 0.3 Basophils % 0.1 Nucleated RBC % 0.0 Absolute Neutrophils 10.71 H Absolute Lymphocytes 0.35 L Absolute Monocytes 0.44 Absolute Eosinophils 0.03 Absolute Basophils 0.01 Sodium 135 L Potassium 4.5 D Chloride 105 Carbon Dioxide 22.4 Anion Gap 7.6 BUN 63 H Creatinine 1.8 H Est GFR (CKD-EPI 2020) 29.02 Glucose 128 H Calcium 8.0 L Magnesium 1.4 L
[2022-07-03 11:31] LABS: BE -6 mmol/L (-2-3); HCO3 19 mmol/L (22-26); pCO2 31 mmHg (35-45); pO2 87 mmHg (80-105); sO2 98 % (95-98); tCO2 18 mmol/L (23-27)
[2022-07-03] MEDS: MAGNESIUM SULFATE 2 GM/50 ML BAG IVPB (11:31)
[2022-07-03 11:32] LABS: FIO2L 2 L; Site Right Brachial
--- NOTE | 2022-07-03 12:40 | PT.INTREAT ---
Date of service: 07/03/22 Time of Service: 09:20 PT Notes Visit Reasons: UTI,Pneumonia Inpatient Physical Therapy Treatment Note [facility] Date: 07/03/2022 PRECAUTIONS: Activity as tolerated SUBJECTIVE: Jessica is pleasant and agreeable to participating in PT.? She reports that she continues to feels weak but knows it is important to get moving. Did complain of legs getting weak while walking and had to take seated rest after about 20ft, but denied SOB throughout ambulation. OBJECTIVE:? PAIN: No c/o pain ? BED MOBILITY/TRANSFERS? Sit-stand: SBA ? Stand-sit: SBA GAIT: Assistive Device: FWW Weight bearing: Full Assistance: SBA Distance: 80' Deviation: SOB, seated rest x1 due to leg weakness, 1L O2 NC ? Had difficulty getting accurate O2 readings today despite attempts with several monitors and assist from Nurse Ramirez. ? Ther exercises: Able to perform ankle pumps x 10 reps, LAQs x 10 reps, seated hip flexion x 5 reps and right bicep curls x 5 reps. Discussed doing these exercises while sitting up in chair to help strengthen muscles and encourage blood flow. ? ASSESSMENT: She demonstrates decreased activity tolerance today. PLAN: Continue with gait training and general conditioning for improved activity tolerance. TREATMENT CODE/TIME: 30 minutes; 70275 x2 (9:10 to 9:40 am) ?
[2022-07-03] MEDS: MAGNESIUM SULFATE 4 GM/100 ML BAG IVPB (17:40)
[2022-07-03 18:44] LABS: Procalcitonin 0.1 ng/mL
[2022-07-03] MEDS: Rivaroxaban 15 MG TABLET PO (19:20)
[2022-07-04] VITALS (9 sets, daily range): BP systolic 92–116; BP diastolic 58–71; PULSE 62–75; RESP 16–18; TEMP 35.4–36.8; O2SAT 89–100
[2022-07-04 05:48] LABS: Abs Immature Grans 0.04 10^3/uL (0.0-0.06); Absolute Basophil Count 0.01 10^3/uL (0.0-0.2); Absolute Eosinophil Count 0.03 10^3/uL (0.0-0.7); Absolute Lymphocyte Count 0.34 10^3/uL (1.2-3.4); Basophils % 0.1; Eosinophils % 0.3; HCT 26.8 % (36.0-46.0); HGB 8.7 g/dL (11.2-15.7); Immature Grans % 0.4; Lymphocytes % 3.1; MCH 30.2 pg (27.0-33.0); MCHC 32.5 % (32.0-36.0); MCV 93 fL (80-95); MPV 10.4 fL (8.0-11.0); Monocytes % 3.7; Neutrophils % 92.4; Platelet Count 199 10^3/uL (130-400); RBC 2.88 10^6/uL (3.93-5.22); RDW 16.2 % (11.7-14.6); RDW-SD 55.1 fL; WBC 10.89 10^3/uL (4.4-10.8)
[2022-07-04 05:54] LABS: Absolute Neutrophil Count 10.06 10^3/uL (1.2-6.7)
[2022-07-04 06:02] LABS: Anion Gap 5.9 mmol/L (3-11); BUN 54 mg/dL (7-18); CO2 23.1 mmol/L (21.0-32.0); CREATININE 1.6 mg/dL (0.55-1.02); Calcium 7.9 mg/dL (8.5-10.1); Chloride 108 mmol/L (98-107); Estimated GFR 33.42 (mL/min/1.73m2); Glucose 116 mg/dL (74-106); Magnesium 3.1 mg/dL (1.8-2.4); Potassium 4.6 mmol/L (3.5-5.1); Sodium 137 mmol/L (136-145)
[2022-07-04] MEDS: Normal Saline 1,000 ML 75 ML IV (06:48)
[2022-07-04] MEDS: guaiFENesin 600 MG TABCR PO (08:01)
[2022-07-04] MEDS: Milk of Magnesia 30 ML CUP PO (08:01)
[2022-07-04] MEDS: Docusate Sodium 100 MG CAP PO (08:01)
[2022-07-04] MEDS: Polyethylene Glycol 3350 17 GM PACKET PO (08:01)
[2022-07-04] MEDS: Tiotropium/Olodaterol 10 PUFF INHALER 2 PUFF IH (08:05)
--- NOTE | 2022-07-04 11:10 | DSE_ITS ---
Date of service: 07/04/22 Time of Service: 12:00 DS: Diagnosis Discharge Diagnosis (1) Abdominal pain: Status: Acute (2) Bacteremia due to Klebsiella pneumoniae: Status: Acute (3) Acute UTI: Status: Acute (4) Pneumonia: Status: Acute (5) Weakness: Status: Acute (6) Atrial fibrillation: Status: Chronic Discharge Plan Disposition Patient Disposition: HOME Condition: Stable Discharge Details Reason For Visit: UTI,Pneumonia Admit Date/Time: 06/28/22 16:29 Admit Provider: Maninder Haskins Attending Provider: Maninder Haskins [facility]: This is a 77 yo female with a history of RUL NSCLC, COPD with a 50 pack year smoking history, recent PE on Xarelto who is admitted for UTI and Pneumonia. The past few months of her course: 02/17/22 - lung cancer screening CT finds new opacity in left lung, infection versus metastatic disease, new left hydronephrosis 03/04/22 - I recommend holding Xarelto for worsening hemoptysis and? we plan for bronchoscopy and future PET scan as I believe this to be infection in the lungs 03/19/22 - bronchoscopy performed, impression is pneumonia - I prescribe Augmentin. Patient goes home but clinically has chest pain and dyspnea - I have her return to ED - she is found to have PE - restarted on Xarelto. CT chest again notes hydro, CT abdo/pelvis obtain and verifies this hydronephrosis 03/22/22 - discharged home on home Xarelto and Augmentin 04/29/22 - called by [facility] radiology about PET scan results - development of severe bilateral hydronephrosis and possible retroperitoneal fibrosis as well as a CT urogram showing severe but not complete obstruction. Patients PCP was out of office and [facility] urology was on vacation so I called [facility] urology and discussed urgency and case with them Her Cr at the time was not overly elevated and the patient was asymptomatic so plan for short term outpatient follow up was made. 05/10/22 - Patient sees [facility] urology: Cr 1.07, she is now having gross hematuria. Plan is made for cystoscopy with bilateral RPG's, stent placement, possible ureteroscopy with biopsy and ureteral washing. This procedure was scheduled for 05/28/22 05/18/22 - Calls to [facility] urology stating Siomara is having more weakness, loss of appetite, weight loss, much more blood in urine. Instructed to get blood work with PCP. This is completed, which prompts ED trip given very elevated creatinine. 05/20/2022 - she was seen by Dr Go and diagnosed with bilateral hydronephrosis and stents were placed. She returned to the [facility] emergency department for generalized weakness and decreased oral intake since her last admission. She was found to have LLL pneumonia and a UTI. She was admitted to the medical floor. She was treated wi antibiotics. She complained of 10/10 abdominal pain. A plain film was done and she was seen by surgery. She had a CT of the abdomen and pelvis. She has a small- moderate amount of ascites that is new. The left pleural effusion has increased slightly. She had a lot of stool in her colon. She has chronic constipation, she was started on a bowel regime. She did have several large bowel movements and did not complain of abdominal pain after that. She continued antibiotics. She was weened off of oxygen and did well walking without oxygen. She has had no fevers, vital signs are normal and her WBC count has decreased. She does have chronic anemia that is stable with H&H 8.7/26.8. She was discharged to home with family on levofloxacin renal adjusted for 7 days. Home Health Nursing is resumed. She could also benefit from Home Health PT. . Home Meds and New Rx's Prescriptions: New levofloxacin 250 mg tablet 250 mg PO DAILY Qty: 7 0RF Continued Xarelto 20 mg tablet 20 mg PO QPM Qty: 30 11RF Rx Instructions: must administer with evening meal diltiazem HCl 120 mg capsule,extended release 24hr 120 mg PO HS atorvastatin [Lipitor] 80 mg Tablet 80 mg PO QPM albuterol sulfate [ProAir HFA] 90 mcg/actuation Hfa Aerosol Inhaler 2 puff INHALATION QID PRN ipratropium-albuterol 0.5 mg-3 mg(2.5 mg base)/3 mL Solution For Nebulization 3 ml UPD Q6H PRN PRN (Reason: shortness of breath or wheezing) Qty: 180 0RF Inhaler, Assist Devices [Pocket Chamber] 1 ea miscellaneous DIRECTED Qty: 0 0RF Stiolto Respimat 2.5-2.5 mcg/actuation mist 2 spray INHALATION DAILY Label Comments: Inhale 2 puff as directed once a day guaifenesin 600 mg tablet extended release 12hr 600 mg PO BID PRN Discharge Instructions Instructions: Levofloxacin (By mouth), Probiotic (By mouth), Urinary Tract Infection in Women (DC), Pneumonia (DC) Additional Instructions: Resume home health nursing; start home health PT. Stand Alone Forms: Nursing Discharge Form Referrals: Sherwin Ceja [Primary Care Provider] - (Call for an Appointment in the next 2 weeks Return to the ER if not much better in the follow up time noted. You can reach the ER at [phone] if you have any questions.) Activity:: Activity as Tolerated Equipment/Supplies:: Oxygen (L/min Below) Diet:: Low Sodium Discharge Orders Discharge Orders: Discharge Order (Routine); Ordered 07/04/22 Ordered By: Maye Perla Other Ambulatory Orders: Basic Metabolic Panel (Routine) Timeframe: [id number] Location: Determined by Patient Ordered By: Maye Perla Cardiac Event Recorder (Routine) Timeframe: 1 Week Facility: [facility] - Location: Respiratory Therapy Ordered By: Maye Perla Complete Blood Count w/Diff (Routine) Location: None Selected Ordered By: Maye Perla Discharge Data Discharge Date/Time-TO BE ENTERED AT DEPARTURE: 07/04/22 13:19 DS: Summary Time Spent with Patient providing and/or coordinating discharge services: Greater than 30 minutes Status at Discharge Functional status at discharge: uses cane/walker Overall status at discharge: patient is progressing back to baseline Mental Status: mental status grossly normal Speech and Movement: speech and movement normal Mood: congruent mood Affect: normal affect Exam Psych Mental Status: mental status grossly normal Speech and Movement: speech and movement normal Mood: congruent mood Affect: normal affect DS: Data Vitals/I&O Vitals and I&O: Vital Signs Temperature 36.5 C 07/04/22 07:25 Temperature Source Tympanic 07/04/22 07:25 Pulse 62 07/04/22 07:25 Pulse Rhythm Irregular 07/04/22 08:00 Pulse 84 06/28/22 16:31 Respiratory Rate 16 07/04/22 07:25 Respiratory Effort Non-Labored 07/04/22 08:00 Respiratory Depth Normal 07/04/22 08:00 Respiratory Pattern Normal 07/04/22 08:00 Blood Pressure 116/71 07/04/22 07:25 Blood Pressure Mean 76 06/28/22 16:31 Blood Pressure Position Sitting 06/28/22 11:24 Pulse Oximetry 92 07/04/22 07:25 Oxygen Delivery Method Nasal Cannula 07/04/22 07:25 Oxygen Flow Rate 1 07/04/22 07:25 Pain Level 0 07/04/22 07:25 Comment 07/03/22 07:04 Intake & Output 07/03/22 07/03/22 07/04/22 11:59 23:59 11:59 Intake Total 753.75 / 1930.00 1176.25 / 1930.00 1000 / 1000 Output Total 325 / 425 100 / 425 420 / 420 Balance 428.75 / 1505.00 1076.25 / 1505.00 580 / 580 Weight 53 kg 54.2 kg Intake: IV 753.75 / 1100.00 346.25 / 1100.00 1000 / 1000 Oral 830 / 830 Output: Urine 325 / 425 100 / 425 420 / 420 Other: Urine Color Yellow Pale Yellow Urine Appearance Clear Clear Clear Urine Odor Normal Normal Normal Comment pt is incontinent into brief, urinates in commode, unmeasureable amounts. Voiding Methods Toilet Bedside Commode Toilet Diaper Incontinent Data Completed and Pending Labs on day of discharge: Labs from last 24 hours 07/04/22 07/04/22 07/03/22 05:35 05:35 Unknown WBC 10.89 H RBC 2.88 L Hgb 8.7 L Hct 26.8 L MCV 93 MCH 30.2 MCHC 32.5 RDW 16.2 H Plt Count 199 MPV 10.4 Immature Gran % 0.4 Neutrophils % 92.4 Lymphocytes % 3.1 Monocytes % 3.7 Eosinophils % 0.3 Basophils % 0.1 Nucleated RBC % 0.0 Absolute Neutrophils 10.06 H Absolute Lymphocytes 0.34 L Absolute Monocytes 0.40 Absolute Eosinophils 0.03 Absolute Basophils 0.01 ABG Sample Site ABG pH ABG pCO2 ABG pO2 ABG HCO3 ABG Total CO2 ABG O2 Saturation ABG Base Excess Oxygen Liter Flow Sodium 137 Potassium 4.6 Chloride 108 H Carbon Dioxide 23.1 Anion Gap 5.9 BUN 54 H Creatinine 1.6 H Est GFR (CKD-EPI 2020) 33.42 Glucose 116 H Calcium 7.9 L Magnesium 3.1 H Procalcitonin Add-On Test Request Cancelled 07/03/22 07/03/22 17:59 11:31 WBC RBC Hgb Hct MCV MCH MCHC RDW Plt Count MPV Immature Gran % Neutrophils % Lymphocytes % Monocytes % Eosinophils % Basophils % Nucleated RBC % Absolute Neutrophils Absolute Lymphocytes Absolute Monocytes Absolute Eosinophils Absolute Basophils ABG Sample Site Right Brachial ABG pH 7.40 ABG pCO2 31 L ABG pO2 87 ABG HCO3 19 L ABG Total CO2 18 L ABG O2 Saturation 98 ABG Base Excess -6 L Oxygen Liter Flow 2 Sodium Potassium Chloride Carbon Dioxide Anion Gap BUN Creatinine Est GFR (CKD-EPI 2020) Glucose Calcium Magnesium Procalcitonin 0.1 Add-On Test Request Preliminary micro results at discharge 06/30/22 06:05 Blood Culture - Preliminary Blood NO GROWTH 96 HOURS 06/30/22 06:20 Blood Culture - Preliminary Blood NO GROWTH 96 HOURS 06/28/22 15:25 Blood Culture - Preliminary Blood Klebsiella pneumoniae PFSH All Active Problems (Updated 07/04/22 @ 11:35 by Maye Perla NP) Ventricular tachycardia (Chronic) H/O dissecting abdominal aortic aneurysm repair (Acute) CHRONIC with mural thrombosis and calcification Abdominal pain (Acute) Bacteremia due to Klebsiella pneumoniae (Acute) Weakness (Acute) Pneumonia (Acute) Acute uremia (Acute) Acute UTI (Acute) Gross hematuria (Acute) 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) Anemia (Chronic) Bilateral hydronephrosis (Acute) Acute renal failure (Acute) Extrinsic ureteral obstruction (Acute) AAA (abdominal aortic aneurysm) (Chronic) Pulmonary emboli (Chronic) Pneumonia (Acute) Respiratory failure with hypoxia and hypercapnia (Acute) NSCLC of right lung (Acute) Palliative care patient (Acute) Pulmonary hypertension (Chronic) Cor pulmonale (Acute) Weakness of both legs (Acute) Hypoxia (Acute) Requires supplemental oxygen (Acute) Hypoxia (Acute) Shortness of breath (Acute) CHF (congestive heart failure) (Chronic) HTN (hypertension) (Chronic) Atrial fibrillation (Chronic) Smoker (Acute) COPD (chronic obstructive pulmonary disease) (Chronic) Medical History Acute and chronic respiratory failure ([id number]) Acute exacerbation of chronic obstructive pulmonary disease Acute exacerbation of congestive heart failure Acute on chronic respiratory failure with hypoxia and hypercapnia Acute respiratory acidosis Acute respiratory failure with hypoxia and hypercapnia LORENE (acute kidney injury) Atrial fibrillation Bilateral hydronephrosis Chronic respiratory failure with hypoxia and hypercapnia COPD (chronic obstructive pulmonary disease) Hemoptysis HTN (hypertension) Hydronephrosis Hydronephrosis Hypercholesteremia Lung cancer Lung mass Pulmonary hypertension Smoker Surgical History S/P appendectomy S/P cholecystectomy S/P hysterectomy Family History Father Hemochromatosis Cirrhosis due to hemochromatosis Diabetes Daughter Heart disease [place] in 40s Social History Smoking/Tobacco Use Status: Current-Occasional Tobacco Type: cigarettes Years smoked: 50 Quit status: considering quitting Counseling given: patient declined Smoking risk assessment performed?: Yes Alcohol Intake: never Drug use: Never Substance use type: does not use What type of physical activity do you participate in: none Do you feel safe at home: Yes Do you feel safe in your relationship?: Yes Additional Social history: lives alone, but a lot of family in the area. of lung cancer
--- NOTE | 2022-07-04 12:44 | PT.INTREAT ---
Date of service: 07/04/22 Time of Service: 11:05 PT Notes Visit Reasons: UTI,Pneumonia Inpatient Physical Therapy Treatment Note [facility] Date: 07/04/2022 PRECAUTIONS: Activity as tolerated SUBJECTIVE: Jessica is pleasant and agreeable to participating in PT.? She reports that she continues to feels weak but knows it is important to get moving. Did complain of legs getting weak while walking and had to take seated rest after about 20ft, but denied SOB throughout ambulation. OBJECTIVE:? PAIN: No c/o pain ? BED MOBILITY/TRANSFERS? Sit-stand: SBA ? Stand-sit: SBA GAIT: Assistive Device: FWW, without O2 supplement Weight bearing: Full Assistance: SBA and RT to monitor O2 readings Distance:? 100' Did not require any standing or seated rest breaks today. Ther exercises: Able to perform ankle pumps x 15 reps, LAQs x 15 reps, seated hip flexion x 15 reps, seated marching x 11 reps and bilateral bicep curls, shoulder horizontal abd/add, punch outs x 10 reps. Discussed doing these exercises while sitting up in chair to help strengthen muscles and encourage blood flow. ? ASSESSMENT: She demonstrates decreased activity tolerance today. PLAN: Continue with gait training and general conditioning for improved activity tolerance. TREATMENT CODE/TIME: [id number] and [id number], (25') 11:00 to 11:15 (ther ex) and 12:05 to 12:15 (ther activity) ?
--- NOTE | 2022-07-04 16:50 | PDOC.CMDIS ---
- If Service Date Differs Date of service: 07/04/22 Time of Service: 16:50 LACE Index Scoring Tool - Questions: Length of Stay (in days): 4 - 6 Acuity (Admit via E.D.?): Yes Comorbidities: Congestive Heart Failure, Chronic Pulmonary Disease, Any Tumor E.D. Visits: 6 - Answers: Total Score: 16 Risk of Readmission: High Risk Care Management Discharge Reason for Hospitalization: UTI, Pneumonia Discharge Plan: Siomara will return home with a resumption of services. Her granddaughter will likely drive her home via private vehicle. She will follow up with her PCP and discharge plan of care. Patient/Family Education Needs: Review discharge instructions and limitations, discussion of self care needs including ask me three.
--- NOTE | 2022-07-06 10:10 | PT.INDS ---
Date of service: 07/06/22 Time of Service: 10:10 PT Notes Visit Reasons: UTI,Pneumonia Physical Therapy Inpatient Discharge Summary Date: 07/06/2022 Dates of service: 06/29/2022 through 07/03/2022 This is a clinical summary of care provided for the duration of dates listed above. No charge was made in the completion of this documentation. Referring Doctor:Ata Corral NP PT Orders: PT CONSULT: Eval/Treat Precautions: Fall. Standard. Activity as tolerated.? Patient Profile/Admitting Diagnosis:? Patient is a 77-year-old female who presented to the ED on 06/28/2022 with diagnoses of acute UTI, pneumonia,? generalized weakness, and AF. PMHX: All Active Problems?(Updated 06/28/22 @ 16:34 by Nish Sun NP) Weakness (Acute) Pneumonia (Acute) Acute uremia (Acute) Acute UTI (Acute) Gross hematuria (Acute) 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) Anemia (Chronic) Bilateral hydronephrosis (Acute) Acute renal failure (Acute) Extrinsic ureteral obstruction (Acute) AAA (abdominal aortic aneurysm) (Chronic) Pulmonary emboli (Chronic) Pneumonia (Acute) Respiratory failure with hypoxia and hypercapnia (Acute) NSCLC of right lung (Acute) Palliative care patient (Acute) Pulmonary hypertension (Chronic) Cor pulmonale (Acute) Weakness of both legs (Acute) Hypoxia (Acute) Requires supplemental oxygen (Acute) Hypoxia (Acute) Shortness of breath (Acute) CHF (congestive heart failure) (Chronic) HTN (hypertension) (Chronic) Atrial fibrillation (Chronic) Smoker (Acute) COPD (chronic obstructive pulmonary disease) (Chronic) Medical History Acute and chronic respiratory failure ([id number]) Acute exacerbation of chronic obstructive pulmonary disease Acute exacerbation of congestive heart failure Acute on chronic respiratory failure with hypoxia and hypercapnia Acute respiratory acidosis Acute respiratory failure with hypoxia and hypercapnia LORENE (acute kidney injury) Atrial fibrillation Bilateral hydronephrosis Chronic respiratory failure with hypoxia and hypercapnia COPD (chronic obstructive pulmonary disease) Hemoptysis HTN (hypertension) Hydronephrosis Hydronephrosis Hypercholesteremia Lung cancer Lung mass Pulmonary hypertension Smoker Surgical History? S/P appendectomy S/P cholecystectomy S/P hysterectomy Social History/Home Situation: Lives alone in a private home with 4 steps to enter with rails on B sides.? Independent with no AD with all aspects of ADLs. Still drives. Equipment Owned/DME: FWW, SPC Subjective: NT. See most recent RESIDENTIAL TREATMENT COUNSELOR notes. Objective: General Observation: NT. See most recent RESIDENTIAL TREATMENT COUNSELOR notes. Mental Status: NT. See most recent RESIDENTIAL TREATMENT COUNSELOR notes. Pain: NT. See most recent RESIDENTIAL TREATMENT COUNSELOR notes. Vital Signs: NT. See most recent RESIDENTIAL TREATMENT COUNSELOR notes. ROM: Right Upper Extremity: ? Shoulder Flexion WFL. Shoulder abduction WFL. Elbow flexion WFL. Wrist flexion WFL. Functional opening and closing of hand WFL. Left Upper Extremity:? Shoulder Flexion WFL. Shoulder abduction WFL. Elbow flexion WFL. Wrist flexion WFL. Functional opening and closing of hand WFL. Right Lower Extremity: Hip flexion WFL. Hip abduction WFL. Knee flexion WFL. Ankle dorsiflexion WFL. Ankle plantarflexion WFL. Left Lower Extremity: Hip flexion WFL. Hip abduction WFL. Knee flexion WFL. Ankle dorsiflexion WFL. Ankle plantarflexion WFL. Strength: Right Upper Extremity: Shoulder flexors 3+/5. Shoulder abductors 4/5. Elbow flexors 4/5. Elbow extensors 4/5. Diet Consultant strong. Left Upper Extremity: Shoulder flexors 3+/5. Shoulder abductors 4/5. Elbow flexors 4/5. Elbow extensors 4/5. Diet Consultant strong. Right Lower Extremity: Hip flexors 4-/5. Hip abductors 4-/5. Knee flexors 4-/5. Knee extensors 4-/5. Ankle dorsiflexors 4-/5. Ankle plantarflexors 4-/5. Left Lower Extremity: Hip flexors 4-/5. Hip abductors 4-/5. Knee flexors 4-/5. Knee extensors 4-/5. Ankle dorsiflexors 4-/5. Ankle plantarflexors 4-/5. BED MOBILITY/TRANSFERS? Sit-stand: SBA ? Stand-sit: SBA GAIT: Assistive Device: FWW Weight bearing: Full Assistance: SBA Distance:? 80' Deviation: SOB, seated rest x1 due to leg weakness, 1L O2 NC ? Had difficulty getting accurate O2 readings today despite attempts with several monitors and assist from Nurse Ramirez. ? Balance: Static Sitting: Normal Dynamic Sitting: Normal Static Standing: Fair Dynamic Standing: Fair Assessment: Patient presents with clinical signs and symptoms consistent with current/admitting diagnoses that have resulted to mobility limitations, gait instability, generalized weakness, and overall ADL decline as demonstrated by the following impairment level findings: 1.? Decreased strength to B UE/LE major muscle groups 2.? Impaired sitting/standing balance 3.? Impaired activity tolerance 4.? Shortness of breath 5.? Swelling Impairments are contributing to the following functional limitations: 1.? Decline in bed mobility skills 2.? Decline in transfer skills 3.? Difficulty with ambulation without assistive device and physical assistance 4.? Increased completion time for mobility ADL performance 5.? Increased risk for falls 6.? Difficulty with managing steps alone safely Goals: Goals X1 week 1. Supine-Sit independent NOT MET 2. Sit-Supine independent NOT MET 3. Sit-Stand independent NOT MET 4. Stand-Sit independent with FWW NOT MET 5. Bed-Chair independent with FWW NOT MET 6. Chair-Bed independent with FWW NOT MET 7. Independent gait on level surface with use of FWW for at least 100 feet without report of pain nor dyspnea NOT MET 8. Independent stair negotiation while holding onto B rails for at least 5 steps without report of pain nor dyspnea NOT MET 9. Independent with home exercise program NOT MET 10. Good static and dynamic standing balance/tolerance NOT MET DISCHARGE RECOMMENDATIONS: [] ? Home with no services [] [X] ? Home with services.? Patient will benefit from home health PT services in order to progress mobility level using least restrictive assistive ambulatory device, assess home safety, identify additional equipment needs, and establish a functional maintenance program that will increase ability of patient to remain at home. [] ? Home with outpatient PT [] [] ? SNF for continued rehabilitation [] [] ? [facility] [] [] ? SNF versus LTC based on ability to participate and progress [] TREATMENT CODE/TIME: GA Thank you for the opportunity to participate in the care of this patient. Andressa Cartagena PT, DPT, CLT [facility], [place]
== END 2022-07-04 13:19 | disposition home or self-care (01) | DRG 689 ==
LOC: ER 16:58 → MS 17:33
PROVIDERS: Nurse Practitioner Acute Care; Nurse Practitioner Family; Physician Assistant; Admitting Provider Family Medicine; Emergency Provider Nurse Practitioner Family; PCP Family Medicine; Visit Provider Family Medicine
DX: N39.0 Urinary tract infection, site not specified (principal); J18.9 Pneumonia, unspecified organism; I48.20 Chronic atrial fibrillation, unspecified; J44.0 Chronic obstructive pulmonary disease with (acute) lower respiratory infection; I74.10 Embolism and thrombosis of unspecified parts of aorta; N17.9 Acute kidney failure, unspecified; I13.0 Hypertensive heart and chronic kidney disease with heart failure and stage 1 through stage 4 chronic kidney disease, or unspecified chronic kidney disease; R53.1 Weakness; I27.20 Pulmonary hypertension, unspecified; R31.0 Gross hematuria; D64.9 Anemia, unspecified; I71.40 Abdominal aortic aneurysm, without rupture, unspecified; F17.210 Nicotine dependence, cigarettes, uncomplicated; B96.1 Klebsiella pneumoniae [K. pneumoniae] as the cause of diseases classified elsewhere; Z79.01 Long term (current) use of anticoagulants; R10.9 Unspecified abdominal pain; I27.29 Other secondary pulmonary hypertension; I50.9 Heart failure, unspecified
CPT/HCPCS: 36415; 74150; 80048; 80053; 82805; 84145; 87040; 87077; 87635; 90662; 93005; 94618; 94640; 97110; 97162; 97530; 99222; 99231; 99285; 36600; 71046; 74019; 74176; 81003; 81015; 83605; 83735; 84484; 85025; 85610; 85730; 87070; 87086; 87186; 87205; 93010; 99223; 99232; 99233; 99239; J1956; J3475; J7620

== ENCOUNTER 2022-07-07 10:53 | Inpatient (IN) | payer MEDICARE, SELFPAY ==
[2022-07-07] VITALS (26 sets, daily range): BP systolic 92–116; BP diastolic 54–77; PULSE 62–122; RESP 14–29; TEMP 36.2–37.2; O2SAT 0–98
--- NOTE | 2022-07-07 10:45 | RT.EKG_ITS ---
APPROVED REPORT Exam: Resting ECG Reason for Exam: SOB Patient Location: E HR:73 bpm ECG Measurements Heart Rate 73 AXIS WA 262 P 0 QRSd 67 QRS 26 QT 390 T 34 QTc 429 Conclusion Sinus rhythm...normal P axis, V-rate 60- 99 Multiform ventricular premature complexes...short R-R, variable morphology Prolonged WA interval...WA >220, V-rate 50- 90 Left atrial enlargement...P, P'>60mS, <-0.15mV V1 Low voltage, extremity and precordial leads...extremity<0.5mV, precordial<1.0mV Physician: no stemi
--- NOTE | 2022-07-07 11:00 | DI.CT_ITS ---
Exam(s) CT CHEST PE CTA EXAM: CT CHEST PE CTA CLINICAL HISTORY: sob, chest pain, hx of pe. TECHNIQUE: Imaging Protocol: Axial CT angiography was performed with multi-slice acquisition and mu lti-planar and/or 3D reconstructions. CONTRAST MATERIAL: Intravenous: Omnipaque 350 Contrast volume:structured data in ml COMPARISON: CT CT CHEST PE CTA from 03/19/[address] ABDOMEN PELVIS WO from 07/02/2022 FINDINGS: CT angiography of the chest was performed with intravenous infusion of 58 cc of Omnipaque 350. There is a large left pleural effusion and moderate size right pleural effusion. There is significan t compressive atelectasis of the left lung, particularly the left lower lobe. No gross hilar or medi astinal mass or adenopathy identified. There are apparent changes of scarring in the right lung apex . The patient reportedly has a history of non-small cell lung carcinoma.. Tracheobronchial tree aliya ears intact. No evidence of pulmonary embolic disease. Thoracic aorta is of normal diameter, no thoracic aortic an eurysm or dissection, major branch vessels appear intact. No mediastinal or hilar adenopathy. Images obtained through the upper abdomen show unremarkable appearance of the visualized portions of the liver, spleen, pancreas, adrenals, and kidneys. IMPRESSION: . No evidence of pulmonary embolic disease. Bilateral pleural effusions, left greater than right, th alf are of indeterminate etiology but could reflect intrathoracic pleural metastatic disease. RADIATION DOSE DELIVERED: 260.03mGy.cm Total DLP 260.03mGy.cm Total DLP !Error CTDIvol DATA REPOSITORY: All CT scans at this facility are submitted to the National Radiology Data Registry (NRDR) Dose Index Registry (DIR) with the [employer] (ACR). RADIATION OPTIMIZATION: All CT scans at this facility use at least one of these dose optimization te chniques: automated exposure control; mA and/or kV adjustment per patient size (includes targeted exa ms where dose is matched to clinical indication); or iterative reconstruction.
--- NOTE | 2022-07-07 11:08 | W.ED.GENAD ---
Discharge Plan Disposition Patient Disposition: [facility] INPATIENT Condition: Stable Discharge Details Chief Complaint: RespSymp Clinical Impression: Pleural effusion on left, Hypoxemia Primary Care Provider: Sherwin Ceja ED Provider: Arnulfo Gonsalves Home Meds and New Rx's Prescriptions: No Action Xarelto 20 mg tablet 20 mg PO QPM Qty: 30 11RF Rx Instructions: must administer with evening meal diltiazem HCl 120 mg capsule,extended release 24hr 120 mg PO HS levofloxacin 250 mg tablet 250 mg PO DAILY Qty: 7 0RF atorvastatin [Lipitor] 80 mg Tablet 80 mg PO QPM albuterol sulfate [ProAir HFA] 90 mcg/actuation Hfa Aerosol Inhaler 2 puff INHALATION QID PRN ipratropium-albuterol 0.5 mg-3 mg(2.5 mg base)/3 mL Solution For Nebulization 3 ml UPD Q6H PRN PRN (Reason: shortness of breath or wheezing) Qty: 180 0RF Inhaler, Assist Devices [Pocket Chamber] 1 ea miscellaneous DIRECTED Qty: 0 0RF Stiolto Respimat 2.5-2.5 mcg/actuation mist 2 spray INHALATION DAILY Label Comments: Inhale 2 puff as directed once a day guaifenesin 600 mg tablet extended release 12hr 600 mg PO BID PRN Medical Decision Making 77-year-old female with past medical history of AAA, pneumonia from Klebsiella pneumonia receiving treatment on Levaquin, previous pulmonary embolism and A. fib on Xarelto, previous lung cancer for which she received treatment for already and is no longer on treatment, she was recently just discharged from [facility] 3 days ago, presents today for shortness of breath and hypoxemia. She was at her primary care provider's office today when her oxygen was noted to be in the 70s. She was started on 4 L, she was brought to the ER by EMS. She is not normally on baseline oxygen. She was titrated down to [address] here, saturating in the mid 90s. She does admit to some fatigue, generalized weakness, and some mild chest achiness. She states that this is her baseline no. She denies any change in the nature of her cough. She has taken the antibiotic as directed. She has no other complaints at this time. No other modifying factors. Exam demonstrates relatively clear lung sounds, minimal crackles at the bases. Mucous membranes are somewhat dry. No focal neurologic deficits. Oxygenation is in the 90s currently on 3 L. She does not normally use supplemental oxygen. Differential includes worsening infection, recurrence of pulmonary embolism causing heart strain, COPD cardiac etiology,. We will evaluate for concerning etiologies, monitor closely and reassess. Screening EKG shows no evidence of STEMI. 2:15 PM Patient still does require supplemental oxygenation. She is saturating in the mid to high 90s on 2 to 3 L, but drops down to the 80s when oxygen is removed. She is not normally oxygen dependent. Bedside ultrasound does show evidence of what appears to be a very reasonable ejection fraction around the 40s to 50s at least. However if she has a notable effusion on the left for her lungs. CTA was performed out of concern for pulmonary embolism as the patient had been off of her anticoagulants for a few days. CTA shows no evidence of PE but does show very large effusion, much worse than when she was discharged a few days ago. Laboratory work-up is stable. The patient's troponin is normal, renal function is at baseline. Electrolytes stable. proBNP is elevated at 15,000 which is notably higher than normal for the patient. However upon ultrasound I am concerned that this may be secondary to pulmonary hypertension component potentially from the large effusion and the subsequent mass-effect at this and causes with a back pressure. However with her continued oxygen demand, I do not feel that she is stable for home. Because she is currently on the Xarelto at this time, I did contact surgery and they do not recommend drainage until she has been off of her anticoagulant for at least 24 hours. We will admit the patient in the meantime for continued monitoring and management with thoracentesis by surgery afterwards. Discussed the case with the hospitalist Dr. Finnegan, I have extensively reviewed the treatment plan with the patient. I have addressed all patient concerns at this time. I have also discussed the plan with the admitting physician and they agree with the current assessment and plan and have agreed to assume responsibility for the patient. All parties demonstrate verbal understanding and agreement with our assessment and plan at this time. The documentation in this chart was dictated using [employer] dictation software. Please excuse any dictation errors. FINDINGS: CT angiography of the chest was performed with intravenous infusion of 58 cc of Omnipaque 350. There is a large left pleural effusion and moderate size right pleural effusion. There is significant compressive atelectasis of the left lung, particularly the left lower lobe. No gross hilar or mediastinal mass or adenopathy identified. There are apparent changes of scarring in the right lung apex. The patient reportedly has a history of non-small cell lung carcinoma.. Tracheobronchial tree appears intact. No evidence of pulmonary embolic disease. Thoracic aorta is of normal diameter, no thoracic aortic aneurysm or dissection, major branch vessels appear intact. No mediastinal or hilar adenopathy. Images obtained through the upper abdomen show unremarkable appearance of the visualized portions of the liver, spleen, pancreas, adrenals, and kidneys. IMPRESSION: . No evidence of pulmonary embolic disease. Bilateral pleural effusions, left greater than right, these are of indeterminate etiology but could reflect intrathoracic pleural metastatic disease. HPI General Date/Time Provider Initiated Documentation: 07/07/22 10:59. HPI Narrative: 77-year-old female with past medical history of AAA, pneumonia from Klebsiella pneumonia receiving treatment on Levaquin, previous pulmonary embolism and A. fib on Xarelto, previous lung cancer for which she received treatment for already and is no longer on treatment, she was recently just discharged from [facility] 3 days ago, presents today for shortness of breath and hypoxemia. She was at her primary care provider's office today when her oxygen was noted to be in the 70s. She was started on 4 L, she was brought to the ER by EMS. She is not normally on baseline oxygen. She was titrated down to [address] here, saturating in the mid 90s. She does admit to some fatigue, generalized weakness, and some mild chest achiness. She states that this is her baseline no. She denies any change in the nature of her cough. She has taken the antibiotic as directed. She has no other complaints at this time. No other modifying factors. Related Data Home Medications Medication Instructions Recorded Confirmed albuterol sulfate 90 mcg/actuation 2 puff inhalation QID PRN 11/09/18 07/07/22 aerosol inhaler (ProAir HFA) atorvastatin 80 mg tablet (Lipitor) 80 mg PO QPM 11/09/18 07/07/22 ipratropium 0.5 mg-albuterol 3 mg 3 ml UPD Q6H PRN PRN shortness of 11/16/18 07/07/22 (2.5 mg base)/3 mL nebulization breath or wheezing #180 mL soln rivaroxaban 20 mg tablet (Xarelto) 20 mg PO QPM #30 tabs 03/14/19 07/07/22 diltiazem HCl 120 mg 120 mg PO HS 09/21/19 07/07/22 capsule,extended release 24 hr Inhaler, Assist Devices [Pocket 1 ea miscellaneous DIRECTED ##0 08/27/21 07/07/22 Chamber] tiotropium 2.5 mcg-olodaterol 2.5 2 spray inhalation DAILY 03/17/22 07/07/22 mcg/actuation mist for inhalation (Stiolto Respimat) guaifenesin 600 mg tablet, 600 mg PO BID PRN 05/20/22 07/07/22 extended release 12 hr levofloxacin 250 mg tablet 250 mg PO DAILY #7 tabs 07/04/22 07/07/22 Previous Rx's Medication Instructions Recorded ipratropium 0.5 mg-albuterol 3 mg 3 ml UPD Q6H PRN PRN shortness of 11/16/18 (2.5 mg base)/3 mL nebulization breath or wheezing #180 mL soln rivaroxaban 20 mg tablet (Xarelto) 20 mg PO QPM #30 tabs 03/14/19 Inhaler, Assist Devices [Pocket 1 ea miscellaneous DIRECTED ##0 08/27/21 Chamber] levofloxacin 250 mg tablet 250 mg PO DAILY #7 tabs 07/04/22 Allergies Allergy/AdvReac Type Severity Reaction Status Date / Time No Known Allergies Allergy Unverified 06/28/22 17:03 General Stated Complaint: RespSymp BOGDAN: 2 Review of Systems All systems reviewed & are unremarkable except as noted in HPI and below PFSH All Active Problems (Updated 07/07/22 @ 14:51 by Arnulfo Gonsalves DO) Pleural effusion on left (Acute) Hypoxemia (Acute) Ventricular tachycardia (Chronic) Bacteremia due to Klebsiella pneumoniae (Acute) Weakness (Acute) Pneumonia (Acute) Gross hematuria (Acute) Retroperitoneal mass (Acute) Anemia (Chronic) Bilateral hydronephrosis (Acute) Acute renal failure (Acute) AAA (abdominal aortic aneurysm) (Chronic) Pulmonary emboli (Chronic) Pneumonia (Acute) Respiratory failure with hypoxia and hypercapnia (Acute) NSCLC of right lung (Acute) Palliative care patient (Acute) Pulmonary hypertension (Chronic) Cor pulmonale (Acute) Weakness of both legs (Acute) Hypoxia (Acute) Requires supplemental oxygen (Acute) Hypoxia (Acute) Shortness of breath (Acute) CHF (congestive heart failure) (Chronic) HTN (hypertension) (Chronic) Atrial fibrillation (Chronic) Smoker (Acute) COPD (chronic obstructive pulmonary disease) (Chronic) Medical History Acute and chronic respiratory failure ([id number]) Acute exacerbation of chronic obstructive pulmonary disease Acute exacerbation of congestive heart failure Acute on chronic respiratory failure with hypoxia and hypercapnia Acute respiratory acidosis Acute respiratory failure with hypoxia and hypercapnia LORENE (acute kidney injury) Aortic mural thrombus Atrial fibrillation Bilateral hydronephrosis Chronic respiratory failure with hypoxia and hypercapnia COPD (chronic obstructive pulmonary disease) Extrinsic ureteral obstruction Hemoptysis HTN (hypertension) Hydronephrosis Hydronephrosis Hypercholesteremia Lung cancer Lung mass Pulmonary hypertension Smoker Surgical History H/O dissecting abdominal aortic aneurysm repair CHRONIC with mural thrombosis and calcification S/P appendectomy S/P cholecystectomy S/P hysterectomy Family History Father Hemochromatosis Cirrhosis due to hemochromatosis Diabetes Daughter Heart disease PA in 40s Social History Smoking/Tobacco Use Status: Current-Occasional Tobacco Type: cigarettes Years smoked: 50 Quit status: considering quitting Counseling given: patient declined Smoking risk assessment performed?: Yes Alcohol Intake: never Drug use: Never Substance use type: does not use What type of physical activity do you participate in: none Do you feel safe at home: Yes Do you feel safe in your relationship?: Yes Additional Social history: lives alone, but a lot of family in the area. of lung cancer Exam Narrative Exam Narrative: 1.Const: Well-nourished, Well-developed, appearing stated age 2.Eyes: PERRL, no conjunctival injection, and symmetrical lids. 3.ENT: Atraumatic external nose and ears. Somewhat dry MM. Neck: Symmetric, trachea midline, No thyromegaly. 4.CVS: +S1/S2, No murmurs or gallops. Peripheral pulses 2+ and equal in all extremities. Brisk capillary refill in all extremities. 5.RESP: Unlabored respiratory effort. Minimal crackles in the bases, no significant wheezes or rhonchi. 6.GI: Soft, Nontender/Nondistended, No hepatosplenomegaly. No guarding or rebound. 7.MSK: Normocephalic/Atraumatic, Extremities w/o deformity or ttp No cyanosis or clubbing, Normal movement of all extremities, no pitting edema in the lower extremities. 8.Skin: Warm, Dry. No rashes or lesions. 9.Neuro: conflict resolution professional II-XII grossly intact. Sensation grossly intact, no focal neurologic deficits. 10.Psych: (AAO) x3. Appropriate mood and affect Course Vital Signs Vital signs: Vital Signs Temperature 37.2 C 07/07/22 10:58 Pulse 70 07/07/22 10:58 Respiratory Rate 22 07/07/22 10:58 Blood Pressure 99/54 L 07/07/22 10:58 Pulse Oximetry 98 07/07/22 10:58 Temperature 37.2 C 07/07/22 10:58 Temperature Source Temporal Artery Scan 07/07/22 10:58 Pulse 70 07/07/22 10:58 Respiratory Rate 22 07/07/22 10:58 Blood Pressure 99/54 L 07/07/22 10:58 Blood Pressure Position Sitting 07/07/22 10:58 Pulse Oximetry 98 07/07/22 10:58 Oxygen Delivery Method Room Air 07/07/22 10:58 Oxygen Flow Rate 0 07/07/22 10:58 POCUS Exam (ED) Limited Cardiac Exam DATE OF EXAM: 07/07/22 TIME OF EXAM: 14:02 PROVIDER THAT PERFORMED THE STUDY: Arnulfo Gonsalves IS THIS A REPEAT EXAM DURING THIS ENCOUNTER: no REASON FOR EXAM: Congestive heart failure VISUALIZED STRUCTURES: Four Chambers VIEW OBTAINED: Parasternal long-axis PERTINENT FINDINGS/IMPRESSION: Other (Notable left-sided pleural effusion, very stable ejection fraction around 40 to 50% at least.) Exam complete
[2022-07-07 11:59] LABS: BE (Venous) 1 mmol/L (-2-3); HCO3 (Venous) 27 mmol/L (23-28); O2 Sat (Venous) 38 %; TCO2 (Venous) 26 mmol/L (24-29); pCO2 (Venous) 52 mmHg (41-51); pH (Venous) 7.32 (7.31-7.41); pO2 (Venous) 24 mmHg
[2022-07-07 12:05] LABS: Abs Immature Grans 0.11 10^3/uL (0.0-0.06); Absolute Basophil Count 0.03 10^3/uL (0.0-0.2); Absolute Eosinophil Count 0.03 10^3/uL (0.0-0.7); Absolute Lymphocyte Count 0.51 10^3/uL (1.2-3.4); Absolute Monocyte Count 0.46 10^3/uL (0.1-0.8); Absolute Neutrophil Count 8.89 10^3/uL (1.2-6.7); Basophils % 0.3; Eosinophils % 0.3; HCT 28.7 % (36.0-46.0); Immature Grans % 1.1; Lymphocytes % 5.1; MCH 29.5 pg (27.0-33.0); MCHC 31.4 % (32.0-36.0); MCV 94 fL (80-95); MPV 10.4 fL (8.0-11.0); Monocytes % 4.6; Neutrophils % 88.6; Platelet Count 212 10^3/uL (130-400); RBC 3.05 10^6/uL (3.93-5.22); RDW 16.9 % (11.7-14.6); RDW-SD 57.1 fL; WBC 10.03 10^3/uL (4.4-10.8)
[2022-07-07 12:17] LABS: INR 1.4 (0.9-1.1); PTT Activated 28.3 sec (21.0-27.5); Prothrombin Time 14.2 sec (9.3-11.0)
[2022-07-07 12:27] LABS: ALT 48 U/L (14-59); AST 47 U/L (15-37); Albumin 2.3 g/dL (3.4-5.0); Alkaline Phosphatase 97 U/L (46-116); Anion Gap 4.4 mmol/L (3-11); BUN 38 mg/dL (7-18); Bilirubin, Total 0.4 mg/dL (0.2-1.0); CO2 27.6 mmol/L (21.0-32.0); CREATININE 1.5 mg/dL (0.55-1.02); Calcium 8.3 mg/dL (8.5-10.1); Chloride 105 mmol/L (98-107); Estimated GFR 36.12 (mL/min/1.73m2); Glucose 98 mg/dL (74-106); NT-proBNP 15815 pg/mL (<300); Potassium 4.8 mmol/L (3.5-5.1); Sodium 137 mmol/L (136-145); TSH (W/Ref FT4) 6.93 uIU/mL (0.36-3.74); Total Protein 6.2 g/dL (6.4-8.2); Troponin I < 50 ng/L (<or=60)
[2022-07-07 12:45] LABS: Procalcitonin < 0.1 ng/mL
[2022-07-07 12:48] LABS: FREE T4 1.22 ng/dL (0.76-1.46)
[2022-07-07] MEDS: Omnipaque 350 MG/ML 500 ML BTL-Imaging package IJ (13:28)
--- NOTE | 2022-07-07 14:49 | W.PM.HP.N ---
Date of service: 07/07/22 Time of Service: 14:49 Assessment and Plan Assessment and plan (1) Pleural effusion on left: Status: Acute Assessment and plan: discussed with general surgery and plan for for diagnostic and therapeutic tap when off xarelto will admit to hospitalist services. O2 requirements, wean as able. hold xarelto (2) Bacteremia due to Klebsiella pneumoniae: Status: Acute Assessment and plan: WBC 11.60 Continue Levofloxacin to complete a 7 day course (3) Weakness: Status: Acute Assessment and plan: PT/OT - progressing (4) Atrial fibrillation: Status: Chronic Assessment and plan: rate controlled anticoagulated on xarelto but will be placed on hold pending thoracentesis. discussed with Dr. Finnegan Qualifiers: Atrial fibrillation type: permanent Qualified Code(s): I48.2 - Chronic atrial fibrillation History of Present Illness History of Present Illness Chief Complaint: shortness of breath Narrative: sent over by pcp office for shortness of breath. PFSH All Active Problems (Updated 07/07/22 @ 14:51 by Arnulfo Gonsalves DO) Pleural effusion on left (Acute) Hypoxemia (Acute) Ventricular tachycardia (Chronic) Bacteremia due to Klebsiella pneumoniae (Acute) Weakness (Acute) Pneumonia (Acute) Gross hematuria (Acute) Retroperitoneal mass (Acute) Anemia (Chronic) Bilateral hydronephrosis (Acute) Acute renal failure (Acute) AAA (abdominal aortic aneurysm) (Chronic) Pulmonary emboli (Chronic) Pneumonia (Acute) Respiratory failure with hypoxia and hypercapnia (Acute) NSCLC of right lung (Acute) Palliative care patient (Acute) Pulmonary hypertension (Chronic) Cor pulmonale (Acute) Weakness of both legs (Acute) Hypoxia (Acute) Requires supplemental oxygen (Acute) Hypoxia (Acute) Shortness of breath (Acute) CHF (congestive heart failure) (Chronic) HTN (hypertension) (Chronic) Atrial fibrillation (Chronic) Smoker (Acute) COPD (chronic obstructive pulmonary disease) (Chronic) Medical History Acute and chronic respiratory failure ([id number]) Acute exacerbation of chronic obstructive pulmonary disease Acute exacerbation of congestive heart failure Acute on chronic respiratory failure with hypoxia and hypercapnia Acute respiratory acidosis Acute respiratory failure with hypoxia and hypercapnia LORENE (acute kidney injury) Aortic mural thrombus Atrial fibrillation Bilateral hydronephrosis Chronic respiratory failure with hypoxia and hypercapnia COPD (chronic obstructive pulmonary disease) Extrinsic ureteral obstruction Hemoptysis HTN (hypertension) Hydronephrosis Hydronephrosis Hypercholesteremia Lung cancer Lung mass Pulmonary hypertension Smoker Surgical History H/O dissecting abdominal aortic aneurysm repair CHRONIC with mural thrombosis and calcification S/P appendectomy S/P cholecystectomy S/P hysterectomy Family History Father Hemochromatosis Cirrhosis due to hemochromatosis Diabetes Daughter Heart disease MA in 40s Social History Smoking/Tobacco Use Status: Current-Occasional Tobacco Type: cigarettes Years smoked: 50 Quit status: considering quitting Counseling given: patient declined Smoking risk assessment performed?: Yes Alcohol Intake: never Drug use: Never Substance use type: does not use What type of physical activity do you participate in: none Do you feel safe at home: Yes Do you feel safe in your relationship?: Yes Additional Social history: lives alone, but a lot of family in the area. of lung cancer Meds Allergies and Home Medications Allergies Allergy/AdvReac Type Severity Reaction Status Date / Time No Known Allergies Allergy Unverified 06/28/22 17:03 Home Medications Medication Instructions Recorded Confirmed Type albuterol sulfate 90 mcg/actuation 2 puff inhalation QID PRN 11/09/18 07/07/22 History aerosol inhaler (ProAir HFA) atorvastatin 80 mg tablet (Lipitor) 80 mg PO QPM 11/09/18 07/07/22 History ipratropium 0.5 mg-albuterol 3 mg 3 ml UPD Q6H PRN PRN shortness of 11/16/18 07/07/22 Rx (2.5 mg base)/3 mL nebulization breath or wheezing #180 mL soln rivaroxaban 20 mg tablet (Xarelto) 20 mg PO QPM #30 tabs 03/14/19 07/07/22 Rx diltiazem HCl 120 mg 120 mg PO HS 09/21/19 07/07/22 History capsule,extended release 24 hr Inhaler, Assist Devices [Pocket 1 ea miscellaneous DIRECTED ##0 08/27/21 07/07/22 Rx Chamber] tiotropium 2.5 mcg-olodaterol 2.5 2 spray inhalation DAILY 03/17/22 07/07/22 History mcg/actuation mist for inhalation (Stiolto Respimat) guaifenesin 600 mg tablet, 600 mg PO BID PRN 05/20/22 07/07/22 History extended release 12 hr levofloxacin 250 mg tablet 250 mg PO DAILY #7 tabs 07/04/22 07/07/22 Rx Exam Const General: cooperative, no acute distress, frail appearing and ill appearing chronically Nutritional Appearance: thin Orientation: alert, awake and oriented x3 Chest Chest: normal inspection of the chest Resp Effort & Inspection: normal respiratory effort Auscultation: diminished lung sounds and no wheezes Cardio Rate: regular rate Rhythm: regular rhythm GI Inspection: normal to inspection Palpation: soft Neuro General: patient alert, patient awake and no focal motor deficits Results Labs Result diagrams: 07/08/22 05:56 07/08/22 05:56 Labs: Laboratory Results - last 24 hr 07/07/22 07/07/22 07/07/22 11:47 11:47 11:47 WBC 10.03 RBC 3.05 L Hgb 9.0 L Hct 28.7 L MCV 94 MCH 29.5 MCHC 31.4 L RDW 16.9 H Plt Count 212 MPV 10.4 Immature Gran % 1.1 Neutrophils % 88.6 Lymphocytes % 5.1 Monocytes % 4.6 Eosinophils % 0.3 Basophils % 0.3 Nucleated RBC % 0.0 Absolute Neutrophils 8.89 H Absolute Lymphocytes 0.51 L Absolute Monocytes 0.46 Absolute Eosinophils 0.03 Absolute Basophils 0.03 PT 14.2 H INR 1.4 H APTT 28.3 H VBG pH VBG pCO2 VBG pO2 VBG HCO3 VBG Total CO2 VBG O2 Saturation VBG Base Excess Sodium 137 Potassium 4.8 Chloride 105 Carbon Dioxide 27.6 Anion Gap 4.4 BUN 38 H Creatinine 1.5 H Est GFR (CKD-EPI 2020) 36.12 Glucose 98 Calcium 8.3 L Total Bilirubin 0.4 AST 47 H ALT 48 Alkaline Phosphatase 97 Troponin I < 50 NT-Pro-B Natriuret Pep 18638 H Total Protein 6.2 L Albumin 2.3 L Procalcitonin TSH 6.93 H Free T4 1.22 07/07/22 07/07/22 11:47 11:47 WBC RBC Hgb Hct MCV MCH MCHC RDW Plt Count MPV Immature Gran % Neutrophils % Lymphocytes % Monocytes % Eosinophils % Basophils % Nucleated RBC % Absolute Neutrophils Absolute Lymphocytes Absolute Monocytes Absolute Eosinophils Absolute Basophils PT INR APTT VBG pH 7.32 VBG pCO2 52 H VBG pO2 24 VBG HCO3 27 VBG Total CO2 26 VBG O2 Saturation 38 VBG Base Excess 1 Sodium Potassium Chloride Carbon Dioxide Anion Gap BUN Creatinine Est GFR (CKD-EPI 2020) Glucose Calcium Total Bilirubin AST ALT Alkaline Phosphatase Troponin I NT-Pro-B Natriuret Pep Total Protein Albumin Procalcitonin < 0.1 TSH Free T4 Last Vital Signs Temp 37.2 C 07/07/22 10:58 Pulse 70 07/07/22 10:58 Resp 22 07/07/22 10:58 BP 99/54 L 07/07/22 10:58 Pulse Ox 98 07/07/22 10:58
[2022-07-07 16:53] LABS: Source Nasal/Nares
[2022-07-07 17:32] LABS: COVID-19 PCR Negative (Negative)
[2022-07-07 20:55] LABS: Troponin I < 50 ng/L (<or=60)
[2022-07-08] VITALS (10 sets, daily range): BP systolic 90–109; BP diastolic 55–76; PULSE 44–80; RESP 18–20; TEMP 36.1–36.7; O2SAT 92–98
[2022-07-08 07:14] LABS: Abs Immature Grans 0.08 10^3/uL (0.0-0.06); Absolute Basophil Count 0.02 10^3/uL (0.0-0.2); Absolute Lymphocyte Count 0.51 10^3/uL (1.2-3.4); Absolute Monocyte Count 0.59 10^3/uL (0.1-0.8); Absolute Neutrophil Count 8.79 10^3/uL (1.2-6.7); Basophils % 0.2; HCT 26.4 % (36.0-46.0); HGB 8.6 g/dL (11.2-15.7); Immature Grans % 0.8; Lymphocytes % 5.1; MCH 30.6 pg (27.0-33.0); MCHC 32.6 % (32.0-36.0); MCV 94 fL (80-95); MPV 10.9 fL (8.0-11.0); Monocytes % 5.8; Neutrophils % 87.1; Platelet Count 191 10^3/uL (130-400); RBC 2.81 10^6/uL (3.93-5.22); RDW 16.7 % (11.7-14.6); RDW-SD 56.2 fL; WBC 10.09 10^3/uL (4.4-10.8)
[2022-07-08 07:30] LABS: BUN 34 mg/dL (7-18); CREATININE 1.3 mg/dL (0.55-1.02); Calcium 8.2 mg/dL (8.5-10.1); Chloride 107 mmol/L (98-107); Estimated GFR 42.88 (mL/min/1.73m2); Glucose 88 mg/dL (74-106); Potassium 5.1 mmol/L (3.5-5.1); Sodium 138 mmol/L (136-145)
[2022-07-08] MEDS: levoFLOXacin 250 MG TAB PO (08:38)
[2022-07-08] MEDS: Tiotropium/Olodaterol 10 PUFF INHALER IH (09:04)
[2022-07-08] MEDS: Normal Saline Flush 10 ML SYR IVP ×2 (09:07→19:24)
--- NOTE | 2022-07-08 13:46 | W.PM.PROGNOT ---
Date of Service Date of service: 07/08/22 Time of Service: 13:46 Assessment and Plan Assessment and plan (1) Pleural effusion on left: Status: Acute Assessment and plan: hold blood thinners plan thorocentisis in 07/09- late pt does not need to be NPO Please let us know if you would like fluid to go for pathology or cytology Objective Last Vital Signs Temp 36.2 C L 07/08/22 11:28 Pulse 61 07/08/22 11:28 Resp 19 07/08/22 11:28 BP 90/58 L 07/08/22 11:28 Pulse Ox 94 07/08/22 11:28 Laboratory Results - last 24 hr 07/07/22 07/07/22 07/08/22 14:55 20:11 05:56 WBC RBC Hgb Hct MCV MCH MCHC RDW Plt Count MPV Immature Gran % Neutrophils % Lymphocytes % Monocytes % Eosinophils % Basophils % Nucleated RBC % Absolute Neutrophils Absolute Lymphocytes Absolute Monocytes Absolute Eosinophils Absolute Basophils Sodium 138 Potassium 5.1 Chloride 107 Carbon Dioxide 27.0 Anion Gap 4.0 BUN 34 H Creatinine 1.3 H Est GFR (CKD-EPI 2020) 42.88 Glucose 88 Calcium 8.2 L Magnesium Troponin I < 50 COVID-19 Source Nasal/Nares SARS-CoV-2 (PCR) Negative 07/08/22 07/08/22 05:56 05:56 WBC 10.09 RBC 2.81 L Hgb 8.6 L Hct 26.4 L MCV 94 MCH 30.6 MCHC 32.6 RDW 16.7 H Plt Count 191 MPV 10.9 Immature Gran % 0.8 Neutrophils % 87.1 Lymphocytes % 5.1 Monocytes % 5.8 Eosinophils % 1.0 Basophils % 0.2 Nucleated RBC % 0.0 Absolute Neutrophils 8.79 H Absolute Lymphocytes 0.51 L Absolute Monocytes 0.59 Absolute Eosinophils 0.10 Absolute Basophils 0.02 Sodium Potassium Chloride Carbon Dioxide Anion Gap BUN Creatinine Est GFR (CKD-EPI 2020) Glucose Calcium Magnesium 2.0 Troponin I COVID-19 Source SARS-CoV-2 (PCR)
--- NOTE | 2022-07-08 13:55 | CHAPLAIN ---
Siomara was in her chair when I visited. Shew as here a few days ago and discharged home. She told me she needs have her neck drained, but has to wait until her blood thinners are out of her system. She said she's tired and hoping to rest. She expects her granddaughter to visit later today. Siomara lives with her granddaughter. Siomara said she was cold so I was able to get her a warm blanket and help her use her bathrobe as a blanket.
--- NOTE | 2022-07-08 14:04 | W.PM.PROGNOT ---
Date of Service Date of service: 07/08/22 Time of Service: 14:04 Assessment and Plan Assessment and plan (1) Pleural effusion on left: Status: Acute Assessment and plan: general surgery plan for for diagnostic and therapeutic tap tomorrow, will be off xarelto 48 hours O2 requirements, wean as able. continue to hold xarelto (2) Bacteremia due to Klebsiella pneumoniae: Status: Acute Assessment and plan: WBC 11.60 Continue Levofloxacin to complete a 7 day course (3) Weakness: Status: Acute Assessment and plan: PT/OT -after thoracentesis (4) Atrial fibrillation: Status: Chronic Assessment and plan: rate controlled anticoagulated on xarelto but will be placed on hold pending thoracentesis. discussed with Dr. Sahu Qualifiers: Atrial fibrillation type: permanent Qualified Code(s): I48.2 - Chronic atrial fibrillation Subjective Subjective Patient reports: no new complaints, bowel movement and afebrile Exam Const General: cooperative, no acute distress, frail appearing and ill appearing chronically Nutritional Appearance: thin Orientation: alert, awake and oriented x3 Chest Chest: normal inspection of the chest Resp Effort & Inspection: normal respiratory effort Auscultation: diminished lung sounds and no wheezes Cardio Rate: regular rate Rhythm: regular rhythm GI Inspection: normal to inspection Palpation: soft Neuro General: patient alert, patient awake and no focal motor deficits Objective Last Vital Signs Temp 36.2 C L 07/08/22 11:28 Pulse 61 07/08/22 11:28 Resp 19 07/08/22 11:28 BP 90/58 L 07/08/22 11:28 Pulse Ox 94 07/08/22 11:28 Laboratory Results - last 24 hr 07/07/22 07/07/22 07/08/22 14:55 20:11 05:56 WBC RBC Hgb Hct MCV MCH MCHC RDW Plt Count MPV Immature Gran % Neutrophils % Lymphocytes % Monocytes % Eosinophils % Basophils % Nucleated RBC % Absolute Neutrophils Absolute Lymphocytes Absolute Monocytes Absolute Eosinophils Absolute Basophils Sodium 138 Potassium 5.1 Chloride 107 Carbon Dioxide 27.0 Anion Gap 4.0 BUN 34 H Creatinine 1.3 H Est GFR (CKD-EPI 2020) 42.88 Glucose 88 Calcium 8.2 L Magnesium Troponin I < 50 COVID-19 Source Nasal/Nares SARS-CoV-2 (PCR) Negative 07/08/22 07/08/22 05:56 05:56 WBC 10.09 RBC 2.81 L Hgb 8.6 L Hct 26.4 L MCV 94 MCH 30.6 MCHC 32.6 RDW 16.7 H Plt Count 191 MPV 10.9 Immature Gran % 0.8 Neutrophils % 87.1 Lymphocytes % 5.1 Monocytes % 5.8 Eosinophils % 1.0 Basophils % 0.2 Nucleated RBC % 0.0 Absolute Neutrophils 8.79 H Absolute Lymphocytes 0.51 L Absolute Monocytes 0.59 Absolute Eosinophils 0.10 Absolute Basophils 0.02 Sodium Potassium Chloride Carbon Dioxide Anion Gap BUN Creatinine Est GFR (CKD-EPI 2020) Glucose Calcium Magnesium 2.0 Troponin I COVID-19 Source SARS-CoV-2 (PCR)
--- NOTE | 2022-07-08 15:15 | INITIAL_ITS ---
- If Service Date Differs Date of service: 07/08/22 Time of Service: 15:15 Care Management Initial Assess REASON FOR HOSPITALIZATION:: dyspnea, pleural effusion, CHF PAST MEDICAL HISTORY/PAST SURGICAL HISTORY:: All Active Problems. Pleural effusion on left (Acute). Hypoxemia (Acute). Ventricular tachycardia (Chronic). Bacteremia due to Klebsiella pneumoniae (Acute). Weakness (Acute). Pneumonia (Acute). Gross hematuria (Acute). Retroperitoneal mass (Acute). Anemia (Chronic). Bilateral hydronephrosis (Acute). Acute renal failure (Acute). AAA (abdominal aortic aneurysm) (Chronic). Pulmonary emboli (Chronic). Pneumonia (Acute). Respiratory failure with hypoxia and hypercapnia (Acute). NSCLC of right lung (Acute). Palliative care patient (Acute). Pulmonary hypertension (Chronic). Cor pulmonale (Acute). Weakness of both legs (Acute). Hypoxia (Acute). Requires supplemental oxygen (Acute). Hypoxia (Acute). Shortness of breath (Acute). CHF (congestive heart failure) (Chronic). HTN (hypertension) (Chronic). Atrial fibrillation (Chronic). Smoker (Acute). COPD (chronic obstructive pulmonary disease) (Chronic). Medical History. Acute and chronic respiratory failure ([id number]). Acute exacerbation of chronic obstructive pulmonary disease. Acute exacerbation of congestive heart failure. Acute on chronic respiratory failure with hypoxia and hypercapnia. Acute respiratory acidosis. Acute respiratory failure with hypoxia and hypercapnia. LORENE (acute kidney injury). Aortic mural thrombus. Atrial fibrillation. Bilateral hydronephrosis. Chronic respiratory failure with hypoxia and hypercapnia. COPD (chronic obstructive pulmonary disease). Extrinsic ureteral obstruction. Hemoptysis. HTN (hypertension). Hydronephrosis. Hydronephrosis. Hypercholesteremia. Lung cancer. Lung mass. Pulmonary hypertension. Smoker. Surgical History. H/O dissecting abdominal aortic aneurysm repair. CHRONIC. with mural thrombosis and calcification. S/P appendectomy. S/P cholecystectomy. S/P hysterectomy PREVIOUS FUNCTIONAL STATUS/SOCIAL/FAMILY SUPPORTS:: Siomara is and lives in [facility] alone with her 2 dogs. Her Granddaughter Yolette is taking care of them during her admission. Siomara identifies Yolette as being her primary support and point person to contact. Siomara is retired, drives and is independent at baseline. CURRENT FUNCTIONAL STATUS:: Siomara was sitting up in her chair, covered up in a blanket and her robe when CM met with her. She stated that she was expecting to see the MD either today or tomorrow for a therapeutic thoracentesis. She stated that she is still not agreeable to home O2, but is ok with services. She currently has HH RN. CM will continue to follow. ADVANCE DIRECTIVES:: On File, [facility] is Alt. Shakira Ferris David Nelson Has patient been provided with info about the portal/API?: Yes Did the patient sign up for the portal?: No CODE STATUS:: DNR/DNI INSURANCE COVERAGE / FINANCIAL ISSUES:: [facility] MCR replacement CURRENT HOME/COMMUNITY SERVICES/EQUIPMENT:: [facility] [employer] PHYSICIAN:: Sherwin Ceja POTENTIAL DISCHARGE NEEDS:: Evaluations for further needs, follow up appointments. PATIENT/FAMILY EDUCATION NEEDS:: Review discharge instructions and limitations, discussion of self care needs including ask me three. ANTICIPATED BARRIERS TO DISCHARGE:: None TRANSPORTATION:: Via private vehicle by family. PLAN:: Siomara is awaiting a therapeutic thoracentesis. Once she becomes medically cleared, she will return home with a resumption of services. Her granddaughter will likely drive her home via private vehicle. She will follow up with her PCP and discharge plan of care. CM will continue to follow. Readmission - Within the Past 30 Days Yes or No: Y - Date of First Admission Date of 1st Admission: 06/28/22 - Date of this Admission Date of Admission: 07/07/22 This admission was: Through ED - Office Visit Since 1st Admission Have you seen your PCP in the office since discharge?: Yes Had an appointment Been Scheduled?: Yes - I. Interview patient and/or Family Difficulty reaching your doctor or getting an office appt?: No Have you had trouble purchasing/ or taking medication?: No Have you had trouble with getting meals at home?: No Did you feel ready for discharge when you left the last time: Yes Were services received that you thought were set up on disch: Yes What services were received?: [facility] RN Did you call your physician beore you came to the ED?: No - ED visits How many ED visits in the past 12 months: 7 - Assessment for Readmission Summary of readmission circumstances, based upon interviews: Siomara stated that she felt ready for discharge when she went home on her previous admission, but upon this admission, she feels that she has the same presentation. She is having trouble maintaining her oxygen saturation level, and is currently on O2. She stated that she does not want to have home O2, but she is ok with having HH services at home. She currently has HH RN. She stated that she has her grand daughter staying with her currently, which is very helpful.
--- NOTE | 2022-07-08 15:53 | PHA.REVIEW2 ---
Pharmacy Admission Review - Admission Clinical Review (Last Reviewed 07/07/22 @ 11:19 by Arnulfo Gonsalves DO) Pleural effusion on left (Acute) Hypoxemia (Acute) Bacteremia due to Klebsiella pneumoniae (Acute) Weakness (Acute) No Known Allergies Allergy (Unverified 06/28/22 17:03) Resuscitation Status DNR/DNI Height 5 ft 3 in Weight 53.4 kg - Renal Dosing Renal Dosing: BUN 34 mg/dL (7-18) H 07/08/22 05:56 Creatinine 1.3 mg/dL (0.55-1.02) H 07/08/22 05:56 Medications needing adjustments: Reviewed (Crcl ~31.45 mL/min current meds okay) - Anticoagulation Anticoagulation: Hgb 8.6 g/dL (11.2-15.7) L 07/08/22 05:56 Hct 26.4 % (36.0-46.0) L 07/08/22 05:56 Plt Count 191 10^3/uL (130-400) 07/08/22 05:56 INR 1.4 (0.9-1.1) H 07/07/22 11:47 Creatinine 1.3 mg/dL (0.55-1.02) H 07/08/22 05:56 DVT Prophylaxis: N/A Therapeutic Anticoagulation: Reviewed (rivaroxaban on hold per H&P pending paracentesis) - Opiate Usage Evaluate Pain Scale/Pains Meds: N/A - Relevant Labs Sodium 138 mmol/L (136-145) 07/08/22 05:56 Potassium 5.1 mmol/L (3.5-5.1) 07/08/22 05:56 Chloride 107 mmol/L (98-107) 07/08/22 05:56 Magnesium 2.0 mg/dL (1.8-2.4) 07/08/22 05:56 Electrolytes, C-Reactive P, ESR: Reviewed - DM Control DM Control: Glucose 88 mg/dL (74-106) 07/08/22 05:56 DM Control: Reviewed - Cardiac Review Cardiac Review: Troponin I < 50 ng/L (<or=60) 07/07/22 20:11 NT-Pro-B Natriuret Pep 00629 pg/mL (<300) H 07/07/22 11:47 BP, HR, EF%: Reviewed (BP and HR have been low to normal so far this admission) - Qtc Review QTc: Reviewed (QTc 429 on admission) - IV to PO Switch IV Medications: Reviewed - Home Meds Home Med List reviewed: Reviewed Relevent Home Meds Not ordered & why?: rivaroxaban (being held) - Current meds Current Medication Order Review: Intervened (Discontinued DI meds that had already been given.) - Comments Comments/Follow Ups: Watch BP, HR, SCr, H/H, labs, for culture results and for med changes (possible renal dose adjustments, resumption of rivaroxaban post paracentesis). Antibiotic Review - Pharmacy Antibiotic Review Pharmacy Antibiotic Activity: C/S review (Blood cultures pending.), Reviewed, no change (Levofloxacin continues (started on last admission, being used for bacteremia due to klebsiella pnuemoniae per H&P))
[2022-07-09] VITALS (9 sets, daily range): BP systolic 82–109; BP diastolic 52–72; PULSE 57–76; RESP 16–22; TEMP 36.3–36.8; O2SAT 94–99
[2022-07-09 06:14] LABS: Bilirubin Negative (Negative); Blood Moderate (Negative); Clarity Cloudy (Clear); Glucose Negative (Negative); Ketones Negative (Negative); Leukocyte Esterase Moderate (Negative); Nitrite Negative (Negative); Specific Gravity 1.015 (1.005-1.025); Urobilinogen 0.2 EU/dL (Up TO 0.2)
[2022-07-09 06:25] LABS: Bacteria Many HPF (Negative); C & S Indicated? Yes; Casts Negative LPF (Negative); Crystals Negative HPF (Negative); Epithelial Cells Few HPF (Negative); Mucus Trace (Negative)
[2022-07-09] MEDS: Lidocaine 1% Pres-Free W/EPI 1/200,000 10 ML VIAL (07:40)
[2022-07-09] MEDS: Sodium Bicarbonate 50 MEQ/50 ML VIAL (07:40)
--- NOTE | 2022-07-09 07:50 | PAPNONF_PTH ---
PATIENT: Siomara Quinones LOC: U#:[id number] AGE/SX: 77/F ROOM: RE07/07/[address]: Clinton Finnegan : 1945 BED: A DIS: 07/15/2022 SPEC #: [id number] RECD: 07/09/22 13:18 STATUS: OLIVIA REQ #: [id number] HODA: 07/09/22 07:[address]: Clinton Finnegan DEPT: [facility] Cytology RECD BY: Malissa Waldron ENTERED: 07/09/22 13:19 SP TYPE: KEEGAN GARCIA DR: Sherwin Ceja Laura M Tissues: 1 - BODY FLUID CYTO(NOT S/U/N/EM)[facility] Procedures: BODY FLUID CYTO(NOT SPU/UR/NIP/ENDOM)[facility] Comments: [id number] (TOTAL VOLUME = 60 ml) (REFRIGERATED) (30 ml FLUID & 30 ml CYTOLYT ADDED IN 2 CONTAINERS)
--- NOTE | 2022-07-09 07:59 | W.PM.OP ---
Date of service: 07/09/22 Time of Service: 07:59 Operative Note Operative Note DATE OF PROCEDURE: 07/09/22 PRE-OP DIAGNOSIS: left pleural effusion-transudate POST-OP DIAGNOSIS: same PROCEDURE: Thoracentesis SURGEON: Kelli Deleon Refer to Anesthesia Record ESTIMATED BLOOD LOSS: 1 PATHOLOGY: none sent COMPLICATIONS: None Patient was transported to: floor Patient's condition: stable Findings: 900 cc transudative fluid Procedure Description: REPORT OF OPERATION Operative Note Operative Note Pt is here today for thoracentesis for symptoms of shortness of breath.? Chest x-ray was reviewed prior to beginning the procedure.? Informed consent was obtained explaining risks and benefits of the procedure, including but not limited to bleeding, infection, pneumothorax, recurrence, complications of anesthesia, and other unforetold complications. Timeout is performed prior to beginning the procedure. ? PROCEDURE:? The patient is brought to the procedure room and placed in the seated position.? Ultrasound is used to localize the pocket on the left chest.? The area is marked and then prepped and draped in the usual sterile fashion using a ChloraPrep scrub solution.? 10 cc's of 1% Lidocaine is used to anesthetize the T10 interspace. ? The small zackery is made with a #11 blade.? The needle and catheter is then inserted over the top of the rib, aspirating as it is inserted.? The needle is then removed.? The catheter is then hooked up to the Vacutainer system and 900cc's of straw-colored fluid is evacuated.? The catheter is removed; pressure is held.? Sterile compression dressing is applied. ? Ultrasound shows good lung slide up to the apex of the lung, and no air. Pt is given instructions in wound care, activity, medications, and warning signs: SOB, increasing in pain, chest pain, redness or temperature- if these occur, come to ED.
[2022-07-09] MEDS: levoFLOXacin 250 MG TAB PO (08:13)
[2022-07-09] MEDS: Tiotropium/Olodaterol 10 PUFF INHALER IH (08:57)
[2022-07-09 09:01] LABS: Source: Pleural
[2022-07-09 09:21] LABS: Mononuclear Cells 64 %; Polynuclear Cells 36 %
[2022-07-09] MEDS: Normal Saline Flush 10 ML SYR IVP (09:33)
--- NOTE | 2022-07-09 10:23 | PDOC.CMPRO ---
- If Service Date Differs Date of service: 07/09/22 Time of Service: 10:23 Care Management Progress Note S/O: Siomara was lying in bed when CM met with her. She stated that she had 900 cc of fluid removed from her pleural effusion today, which has made her feel better. She remains on O2, and will be weaned as tolerated. Her daughter, Shakira, asked about getting her a hospital bed, CM reviewed this with Shakira, stating that there are strict requirements by [facility] in order to qualify for a hospital bed. CM will discuss this with the provider and Siomara, as she would have to be agreeable to an order being submitted. If she discharges over the weekend, this should be pursued by her PCP office. CM will continue to follow. A: Siomara is a 77 year old female admitted to [facility] on 07/07/22 with dyspnea, pleural effusion, CHF. P: Siomara is awaiting a therapeutic thoracentesis. Once she becomes medically cleared, she will return home with a resumption of services. Her granddaughter will likely drive her home via private vehicle. She will follow up with her PCP and discharge plan of care. CM will continue to follow.
[2022-07-09 12:07] LABS: Abs Immature Grans 0.08 10^3/uL (0.0-0.06); Absolute Eosinophil Count 0.07 10^3/uL (0.0-0.7); Absolute Lymphocyte Count 0.58 10^3/uL (1.2-3.4); Absolute Neutrophil Count 9.74 10^3/uL (1.2-6.7); Basophils % 0.5; Eosinophils % 0.6; HCT 27.2 % (36.0-46.0); HGB 8.9 g/dL (11.2-15.7); Immature Grans % 0.7; Lymphocytes % 5.2; MCH 30.4 pg (27.0-33.0); MCHC 32.7 % (32.0-36.0); MCV 93 fL (80-95); MPV 10.5 fL (8.0-11.0); Monocytes % 5.1; Neutrophils % 87.9; Platelet Count 196 10^3/uL (130-400); RBC 2.93 10^6/uL (3.93-5.22); RDW 17.1 % (11.7-14.6); RDW-SD 57.2 fL; WBC 11.08 10^3/uL (4.4-10.8)
[2022-07-09 12:11] LABS: Absolute Basophil Count 0.06 10^3/uL (0.0-0.2); Absolute Monocyte Count 0.57 10^3/uL (0.1-0.8)
[2022-07-09 12:16] LABS: Anion Gap 1.5 mmol/L (3-11); BUN 29 mg/dL (7-18); CO2 28.5 mmol/L (21.0-32.0); CREATININE 1.3 mg/dL (0.55-1.02); Calcium 8.1 mg/dL (8.5-10.1); Chloride 106 mmol/L (98-107); Estimated GFR 42.88 (mL/min/1.73m2); Glucose 88 mg/dL (74-106); Magnesium 1.7 mg/dL (1.8-2.4); Potassium 4.8 mmol/L (3.5-5.1); Sodium 136 mmol/L (136-145)
[2022-07-09 12:48] LABS: Clarity Clear; Nucleated Cells 303 uL (0); Source Pleural
[2022-07-09 18:22] LABS: Glucose, Fluid 85 mg/dL (See Note)
[2022-07-10] VITALS (12 sets, daily range): BP systolic 78–105; BP diastolic 47–66; PULSE 64–80; RESP 16–18; TEMP 35.7–37.2; O2SAT 94–98
[2022-07-10 07:00] LABS: Absolute Basophil Count 0.04 10^3/uL (0.0-0.2); Absolute Eosinophil Count 0.11 10^3/uL (0.0-0.7); Absolute Lymphocyte Count 0.55 10^3/uL (1.2-3.4); Absolute Monocyte Count 0.62 10^3/uL (0.1-0.8); Absolute Neutrophil Count 9.03 10^3/uL (1.2-6.7); Basophils % 0.4; Eosinophils % 1.1; HCT 27.1 % (36.0-46.0); HGB 8.8 g/dL (11.2-15.7); Lymphocytes % 5.3; MCH 30.6 pg (27.0-33.0); MCHC 32.5 % (32.0-36.0); MCV 94 fL (80-95); MPV 10.6 fL (8.0-11.0); Monocytes % 5.9; Neutrophils % 86.3; Platelet Count 189 10^3/uL (130-400); RBC 2.88 10^6/uL (3.93-5.22); RDW 17.3 % (11.7-14.6); RDW-SD 58.7 fL; WBC 10.45 10^3/uL (4.4-10.8)
[2022-07-10 07:33] LABS: BUN 28 mg/dL (7-18); CREATININE 1.3 mg/dL (0.55-1.02); Calcium 8.1 mg/dL (8.5-10.1); Chloride 107 mmol/L (98-107); Estimated GFR 42.88 (mL/min/1.73m2); Glucose 98 mg/dL (74-106); Magnesium 1.7 mg/dL (1.8-2.4); Potassium 5.1 mmol/L (3.5-5.1); Sodium 139 mmol/L (136-145)
[2022-07-10] MEDS: levoFLOXacin 250 MG TAB PO (08:02)
[2022-07-10] MEDS: Tiotropium/Olodaterol 10 PUFF INHALER IH (08:18)
--- NOTE | 2022-07-10 09:05 | W.PM.PROGNOT ---
Date of Service Date of service: 07/09/22 Time of Service: 13:00 Assessment and Plan Assessment and plan (1) Pleural effusion on left: Status: Acute Assessment and plan: O2 requirements, wean as able. Seen by surgery and had a thoracentesis with 900 ml trasudative fluid collected; sent for cx; pending - katy procedure well and has improved WOB (2) Bacteremia due to Klebsiella pneumoniae: Status: Acute Assessment and plan: WBC 11.08 Continue Levofloxacin to complete a 7 day course (3) Weakness: Status: Acute Assessment and plan: PT/OT - progressing (4) Atrial fibrillation: Status: Chronic Assessment and plan: rate controlled discussed with Dr. Sahu Qualifiers: Atrial fibrillation type: permanent Qualified Code(s): I48.2 - Chronic atrial fibrillation Subjective Subjective Patient reports: no new complaints, voiding w/o difficulty, bowel movement and afebrile; denies diarrhea, nausea, vomiting or shortness of breath Exam Const General: cooperative, no acute distress, frail appearing and ill appearing chronically Nutritional Appearance: thin Orientation: alert, awake and oriented x3 Chest Chest: normal inspection of the chest Resp Effort & Inspection: normal respiratory effort Auscultation: diminished lung sounds and no wheezes Cardio Rate: regular rate Rhythm: regular rhythm GI Inspection: normal to inspection Palpation: soft Neuro General: patient alert, patient awake and no focal motor deficits Objective Last Vital Signs Temp 36.6 C 07/10/22 08:16 Pulse 64 07/10/22 08:16 Resp 16 07/10/22 08:16 BP 80/54 L 07/10/22 08:40 Pulse Ox 94 07/10/22 08:16 Laboratory Results - last 24 hr 07/09/22 07/09/22 07/09/22 07:45 07:45 11:55 WBC RBC Hgb Hct MCV MCH MCHC RDW Plt Count MPV Immature Gran % Neutrophils % Lymphocytes % Monocytes % Eosinophils % Basophils % Nucleated RBC % Absolute Neutrophils Absolute Lymphocytes Absolute Monocytes Absolute Eosinophils Absolute Basophils Sodium 136 Potassium 4.8 Chloride 106 Carbon Dioxide 28.5 Anion Gap 1.5 L BUN 29 H Creatinine 1.3 H Est GFR (CKD-EPI 2020) 42.88 Glucose 88 Calcium 8.1 L Magnesium 1.7 L Fluid Source Pleural Cancelled Fluid Color Yellow Cancelled Fluid Clarity Clear Cancelled Fluid WBC 303 Cancelled Fld Polynuclear WBCs % 36 Cancelled Fluid Mononuclear Cell 64 Cancelled Fluid Other Cells Cancelled Path Cons Comment Cancelled 07/09/22 07/10/22 07/10/22 11:55 05:36 05:36 WBC 11.08 H 10.45 RBC 2.93 L 2.88 L Hgb 8.9 L 8.8 L Hct 27.2 L 27.1 L MCV 93 94 MCH 30.4 30.6 MCHC 32.7 32.5 RDW 17.1 H 17.3 H Plt Count 196 189 MPV 10.5 10.6 Immature Gran % 0.7 1.0 Neutrophils % 87.9 86.3 Lymphocytes % 5.2 5.3 Monocytes % 5.1 5.9 Eosinophils % 0.6 1.1 Basophils % 0.5 0.4 Nucleated RBC % 0.0 0.0 Absolute Neutrophils 9.74 H 9.03 H Absolute Lymphocytes 0.58 L 0.55 L Absolute Monocytes 0.57 0.62 Absolute Eosinophils 0.07 0.11 Absolute Basophils 0.06 0.04 Sodium 139 Potassium 5.1 Chloride 107 Carbon Dioxide 28.0 Anion Gap 4.0 BUN 28 H Creatinine 1.3 H Est GFR (CKD-EPI 2020) 42.88 Glucose 98 Calcium 8.1 L Magnesium 1.7 L Fluid Source Fluid Color Fluid Clarity Fluid WBC Fld Polynuclear WBCs % Fluid Mononuclear Cell Fluid Other Cells Path Cons Comment
--- NOTE | 2022-07-10 09:09 | W.PM.PROGNOT ---
Date of Service Date of service: 07/10/22 Time of Service: 09:09 Assessment and Plan Assessment and plan (1) Pleural effusion on left: Status: Acute Assessment and plan: O2 requirements, wean as able. Continues to be on 1 LPM oxygen via [place] She did have some hypotension; CXR was done, no pneumothorax, continues to have small pleural effusion on the left. No increased WOB; SPO2 stable 94-99% (2) Bacteremia due to Klebsiella pneumoniae: Status: Acute Assessment and plan: WBC 10.45 Continue Levofloxacin to complete a 7 day course (3) Weakness: Status: Acute Assessment and plan: PT/OT - progressing (4) Atrial fibrillation: Status: Chronic Assessment and plan: rate controlled discussed with Dr. Sahu Qualifiers: Atrial fibrillation type: permanent Qualified Code(s): I48.2 - Chronic atrial fibrillation Subjective Subjective Patient reports: no new complaints, feels better, tolerating a regular diet, voiding w/o difficulty and afebrile; denies flatus, diarrhea, nausea or vomiting Exam Const General: cooperative, no acute distress, frail appearing and ill appearing chronically Nutritional Appearance: thin Orientation: alert, awake and oriented x3 Chest Chest: normal inspection of the chest Resp Effort & Inspection: normal respiratory effort Auscultation: diminished lung sounds and no wheezes Cardio Rate: regular rate Rhythm: regular rhythm GI Inspection: normal to inspection Palpation: soft Neuro General: patient alert, patient awake and no focal motor deficits Objective Last Vital Signs Temp 36.6 C 07/10/22 08:16 Pulse 64 07/10/22 08:16 Resp 16 07/10/22 08:16 BP 80/54 L 07/10/22 08:40 Pulse Ox 94 07/10/22 08:16 Laboratory Results - last 24 hr 07/09/22 07/09/22 07/09/22 07:45 07:45 11:55 WBC RBC Hgb Hct MCV MCH MCHC RDW Plt Count MPV Immature Gran % Neutrophils % Lymphocytes % Monocytes % Eosinophils % Basophils % Nucleated RBC % Absolute Neutrophils Absolute Lymphocytes Absolute Monocytes Absolute Eosinophils Absolute Basophils Sodium 136 Potassium 4.8 Chloride 106 Carbon Dioxide 28.5 Anion Gap 1.5 L BUN 29 H Creatinine 1.3 H Est GFR (CKD-EPI 2020) 42.88 Glucose 88 Calcium 8.1 L Magnesium 1.7 L Fluid Source Pleural Cancelled Fluid Color Yellow Cancelled Fluid Clarity Clear Cancelled Fluid WBC 303 Cancelled Fld Polynuclear WBCs % 36 Cancelled Fluid Mononuclear Cell 64 Cancelled Fluid Other Cells Cancelled Path Cons Comment Cancelled 07/09/22 07/10/22 07/10/22 11:55 05:36 05:36 WBC 11.08 H 10.45 RBC 2.93 L 2.88 L Hgb 8.9 L 8.8 L Hct 27.2 L 27.1 L MCV 93 94 MCH 30.4 30.6 MCHC 32.7 32.5 RDW 17.1 H 17.3 H Plt Count 196 189 MPV 10.5 10.6 Immature Gran % 0.7 1.0 Neutrophils % 87.9 86.3 Lymphocytes % 5.2 5.3 Monocytes % 5.1 5.9 Eosinophils % 0.6 1.1 Basophils % 0.5 0.4 Nucleated RBC % 0.0 0.0 Absolute Neutrophils 9.74 H 9.03 H Absolute Lymphocytes 0.58 L 0.55 L Absolute Monocytes 0.57 0.62 Absolute Eosinophils 0.07 0.11 Absolute Basophils 0.06 0.04 Sodium 139 Potassium 5.1 Chloride 107 Carbon Dioxide 28.0 Anion Gap 4.0 BUN 28 H Creatinine 1.3 H Est GFR (CKD-EPI 2020) 42.88 Glucose 98 Calcium 8.1 L Magnesium 1.7 L Fluid Source Fluid Color Fluid Clarity Fluid WBC Fld Polynuclear WBCs % Fluid Mononuclear Cell Fluid Other Cells Path Cons Comment
[2022-07-10] MEDS: Normal Saline Flush 10 ML SYR IVP (11:00)
[2022-07-10] MEDS: Lactated Ringers 250 ML IV (11:06)
--- NOTE | 2022-07-10 12:15 | DI.RAD_ITS ---
Exam(s) XR PORTABLE CHEST AP EXAM: XR PORTABLE CHEST AP CLINICAL HISTORY: Post thoracentesis TECHNIQUE: 2D digital imaging was performed of the chest. One image was obtained. An AP view was ob tained. COMPARISON: CR XR CHEST 2V PA LATERAL from 06/28/2022 FINDINGS: MEDIASTINUM: Normal. HEART: Mild cardiomegaly. PULMONARY VASCULATURE: Normal. LUNGS: Stable scarring in the right lung apex. Stable bilateral pulmonary opacities, left greater th an right. There are increased markings in the right lung base which have increased since 06/28/2022. PLEURAL SPACE: There may be a small left pleural effusion. No right pleural effusion is seen. No pn eumothorax is present. BONE:Within normal limits for the patient's age. OTHER FINDINGS:Normal. IMPRESSION: Persistent bilateral infiltrates with slight worsening in the right lung base. DATA REPOSITORY: RADIATION DOSE DELIVERED:
[2022-07-10] MEDS: MAGNESIUM SULFATE 1 GM/100 ML BAG IVPB (12:31)
[2022-07-10] MEDS: Normal Saline 500 ML 30 ML IV (12:31)
--- NOTE | 2022-07-10 12:41 | DI.VRAD_ITS ---
PROCEDURE INFORMATION: Exam: XR Chest Exam date and time: 07/10/2022 11:52 AM Age: 77 years old Clinical indication: Other: Post thorancentesis TECHNIQUE: Imaging protocol: Radiologic exam of the chest. Views: 1 view. COMPARISON: CR XR CHEST 2V PA LATERAL 28/06/2022 14:14 FINDINGS: Lungs: Bilateral interstitial infiltrates similar to prior study with some progression at the right base. Right upper lobe pleural thickening with reticular markings similar to prior study. Pleural spaces: Blunted left lateral costophrenic angle consistent with pleural effusion. Heart/Mediastinum: Mild cardiomegaly. Vasculature: Atherosclerotic disease. Bones/joints: Multilevel degenerative changes of the spine. Soft tissues: Calcifications in the soft tissue of the left neck similar to prior study possibly related to the thyroid gland. IMPRESSION: Bilateral infiltrates. Left pleural effusion. Dictated and Authenticated by: Liyah Hayden MD. Ordering:GLENROY Villavicencio MD
[2022-07-10] MEDS: Atorvastatin 40 MG TAB 80 MG PO (20:03)
[2022-07-11] VITALS (8 sets, daily range): BP systolic 86–106; BP diastolic 48–71; PULSE 53–76; RESP 16–18; TEMP 36–37.1; O2SAT 89–97
[2022-07-11 06:58] LABS: Abs Immature Grans 0.07 10^3/uL (0.0-0.06); Absolute Basophil Count 0.04 10^3/uL (0.0-0.2); Absolute Eosinophil Count 0.13 10^3/uL (0.0-0.7); Absolute Lymphocyte Count 0.61 10^3/uL (1.2-3.4); Absolute Monocyte Count 0.64 10^3/uL (0.1-0.8); Basophils % 0.4; Eosinophils % 1.4; HCT 27.4 % (36.0-46.0); HGB 8.7 g/dL (11.2-15.7); Immature Grans % 0.7; Lymphocytes % 6.4; MCH 30.3 pg (27.0-33.0); MCHC 31.8 % (32.0-36.0); MCV 96 fL (80-95); MPV 10.3 fL (8.0-11.0); Monocytes % 6.7; Neutrophils % 84.4; Platelet Count 172 10^3/uL (130-400); RBC 2.87 10^6/uL (3.93-5.22); RDW 17.3 % (11.7-14.6); RDW-SD 58.7 fL; WBC 9.59 10^3/uL (4.4-10.8)
[2022-07-11 07:19] LABS: Anion Gap 2.7 mmol/L (3-11); BUN 27 mg/dL (7-18); CO2 28.3 mmol/L (21.0-32.0); CREATININE 1.3 mg/dL (0.55-1.02); Calcium 8.2 mg/dL (8.5-10.1); Chloride 107 mmol/L (98-107); Estimated GFR 42.88 (mL/min/1.73m2); Glucose 89 mg/dL (74-106); Potassium 5.1 mmol/L (3.5-5.1); Sodium 138 mmol/L (136-145)
[2022-07-11] MEDS: Tiotropium/Olodaterol 10 PUFF INHALER IH (09:10)
[2022-07-11] MEDS: levoFLOXacin 250 MG TAB PO (09:18)
[2022-07-11] MEDS: Normal Saline Flush 10 ML SYR IVP (09:18)
--- NOTE | 2022-07-11 15:57 | W.PM.PROGNOT ---
Date of Service Date of service: 07/11/22 Time of Service: 15:57 Assessment and Plan Assessment and plan (1) Pleural effusion on left: Status: Acute Assessment and plan: O2 requirements, wean as able. On RA and maintaining SPO2 > 90% No increased WOB (2) Bacteremia due to Klebsiella pneumoniae: Status: Acute Assessment and plan: WBC 9.59 Continue Levofloxacin to complete a 7 day course (3) Weakness: Status: Acute Assessment and plan: PT/OT - progressing (4) Atrial fibrillation: Status: Chronic Assessment and plan: rate controlled discussed with Dr. Sahu Qualifiers: Atrial fibrillation type: permanent Qualified Code(s): I48.2 - Chronic atrial fibrillation (5) DVT prophylaxis: Status: Acute Assessment and plan: Enoxaparin Subjective Subjective Patient reports: no new complaints, feels better, tolerating a regular diet, voiding w/o difficulty, bowel movement and afebrile; denies flatus, diarrhea, nausea or vomiting Interval history since last seen: No complaints, states she is feeling better today - she is on room air and maintaining sats Exam Const General: cooperative, no acute distress, frail appearing and ill appearing chronically Nutritional Appearance: thin Orientation: alert, awake and oriented x3 Chest Chest: normal inspection of the chest Resp Effort & Inspection: normal respiratory effort Auscultation: diminished lung sounds and no wheezes Cardio Rate: regular rate Rhythm: regular rhythm GI Inspection: normal to inspection Palpation: soft Neuro General: patient alert, patient awake and no focal motor deficits Objective Last Vital Signs Temp 37.1 C 07/11/22 15:48 Pulse 75 07/11/22 15:48 Resp 18 07/11/22 15:48 BP 89/54 L 07/11/22 15:48 Pulse Ox 91 L 07/11/22 15:48 Laboratory Results - last 24 hr 07/11/22 07/11/22 06:40 06:40 WBC 9.59 RBC 2.87 L Hgb 8.7 L Hct 27.4 L MCV 96 H MCH 30.3 MCHC 31.8 L RDW 17.3 H Plt Count 172 MPV 10.3 Immature Gran % 0.7 Neutrophils % 84.4 Lymphocytes % 6.4 Monocytes % 6.7 Eosinophils % 1.4 Basophils % 0.4 Nucleated RBC % 0.0 Absolute Neutrophils 8.10 H Absolute Lymphocytes 0.61 L Absolute Monocytes 0.64 Absolute Eosinophils 0.13 Absolute Basophils 0.04 Sodium 138 Potassium 5.1 Chloride 107 Carbon Dioxide 28.3 Anion Gap 2.7 L BUN 27 H Creatinine 1.3 H Est GFR (CKD-EPI 2020) 42.88 Glucose 89 Calcium 8.2 L Magnesium 2.0 Reviewed Pertinent PMH: Yes
[2022-07-11] MEDS: Lactated Ringers 250 ML IV (19:29)
[2022-07-11] MEDS: Atorvastatin 40 MG TAB 80 MG PO (19:37)
[2022-07-11] MEDS: Enoxaparin 40 MG/0.4 ML SYR SC (19:37)
[2022-07-12] VITALS (8 sets, daily range): BP systolic 92–114; BP diastolic 58–93; PULSE 56–84; RESP 16–82; TEMP 36–36.8; O2SAT 91–98
[2022-07-12 06:33] LABS: Abs Immature Grans 0.08 10^3/uL (0.0-0.06); Absolute Basophil Count 0.04 10^3/uL (0.0-0.2); Absolute Lymphocyte Count 0.67 10^3/uL (1.2-3.4); Absolute Monocyte Count 0.58 10^3/uL (0.1-0.8); Absolute Neutrophil Count 7.04 10^3/uL (1.2-6.7); Basophils % 0.5; Eosinophils % 1.2; HCT 25.2 % (36.0-46.0); Immature Grans % 0.9; Lymphocytes % 7.9; MCH 29.7 pg (27.0-33.0); MCHC 31.7 % (32.0-36.0); MCV 94 fL (80-95); MPV 10.7 fL (8.0-11.0); Monocytes % 6.8; Neutrophils % 82.7; Platelet Count 168 10^3/uL (130-400); RBC 2.69 10^6/uL (3.93-5.22); RDW 17.2 % (11.7-14.6); RDW-SD 58.4 fL; WBC 8.51 10^3/uL (4.4-10.8)
[2022-07-12 06:46] LABS: Anion Gap 4.8 mmol/L (3-11); BUN 25 mg/dL (7-18); CO2 26.2 mmol/L (21.0-32.0); CREATININE 1.2 mg/dL (0.55-1.02); Calcium 8.2 mg/dL (8.5-10.1); Chloride 108 mmol/L (98-107); Estimated GFR 47.21 (mL/min/1.73m2); Glucose 87 mg/dL (74-106); Magnesium 1.6 mg/dL (1.8-2.4); Sodium 139 mmol/L (136-145)
[2022-07-12] MEDS: levoFLOXacin 250 MG TAB PO (08:33)
[2022-07-12] MEDS: Normal Saline Flush 10 ML SYR IVP (08:34)
[2022-07-12] MEDS: Normal Saline 500 ML 30 ML IV (08:51)
[2022-07-12] MEDS: MAGNESIUM SULFATE 2 GM/50 ML BAG IVPB (08:52)
[2022-07-12] MEDS: Tiotropium/Olodaterol 10 PUFF INHALER IH (10:05)
--- NOTE | 2022-07-12 12:08 | PDOC.CMPRO ---
- If Service Date Differs Date of service: 07/12/22 Time of Service: 12:08 Care Management Progress Note S/O: Siomara was sitting up in her chair visiting with her brother when CM met with her. She stated that she is feeling much better than the last time CM visited, on Tuesday. She is no longer requiring O2. She stated that her appetite is starting to get better, as she has not been eating much at home. She stated I eat when I'm hungry. Per report, she is nearing discharge readiness. She will have a resumption of HH RN when she is discharged. CM will continue to follow. A: Siomara is a 77 year old female admitted to [facility] on 07/07/22 with dyspnea, pleural effusion, CHF. P: Siomara will return home once she becomes medically cleared, with a resumption of HH services. Her granddaughter will likely drive her home via private vehicle. She will follow up with her PCP and discharge plan of care. CM will continue to follow.
--- NOTE | 2022-07-12 17:36 | W.PM.PROGNOT ---
Date of Service Date of service: 07/12/22 Time of Service: 17:36 Assessment and Plan Assessment and plan (1) Pleural effusion on left: Status: Acute Assessment and plan: On RA and maintaining SPO2 > 90% No increased WOB (2) Bacteremia due to Klebsiella pneumoniae: Status: Acute Assessment and plan: WBC 8.51 Levofloxacin course completed (3) Weakness: Status: Acute Assessment and plan: PT/OT - progressing (4) Atrial fibrillation: Status: Chronic Assessment and plan: rate controlled Qualifiers: Atrial fibrillation type: permanent Qualified Code(s): I48.2 - Chronic atrial fibrillation (5) DVT prophylaxis: Status: Acute Assessment and plan: Enoxaparin (6) Discharge planning issues: Status: Acute Assessment and plan: Improved and if maintaining RA and Ex Ox is ok potential discharge 07/13/[address] Sahu Subjective Subjective Patient reports: no new complaints, tolerating a regular diet, voiding w/o difficulty, bowel movement and afebrile; denies diarrhea, nausea, vomiting or shortness of breath Exam Const General: cooperative, no acute distress, frail appearing and ill appearing chronically Nutritional Appearance: thin Orientation: alert, awake and oriented x3 Chest Chest: normal inspection of the chest Resp Effort & Inspection: normal respiratory effort Auscultation: diminished lung sounds and no wheezes Cardio Rate: regular rate Rhythm: regular rhythm GI Inspection: normal to inspection Palpation: soft Neuro General: patient alert, patient awake and no focal motor deficits Objective Last Vital Signs Temp 36 C L 07/12/22 16:25 Pulse 84 07/12/22 16:25 Resp 18 07/12/22 16:25 BP 108/63 07/12/22 16:25 Pulse Ox 97 07/12/22 16:25 Laboratory Results - last 24 hr 07/12/22 07/12/22 06:04 06:04 WBC 8.51 RBC 2.69 L Hgb 8.0 L Hct 25.2 L MCV 94 MCH 29.7 MCHC 31.7 L RDW 17.2 H Plt Count 168 MPV 10.7 Immature Gran % 0.9 Neutrophils % 82.7 Lymphocytes % 7.9 Monocytes % 6.8 Eosinophils % 1.2 Basophils % 0.5 Nucleated RBC % 0.0 Absolute Neutrophils 7.04 H Absolute Lymphocytes 0.67 L Absolute Monocytes 0.58 Absolute Eosinophils 0.10 Absolute Basophils 0.04 Sodium 139 Potassium 5.0 Chloride 108 H Carbon Dioxide 26.2 Anion Gap 4.8 BUN 25 H Creatinine 1.2 H Est GFR (CKD-EPI 2020) 47.21 Glucose 87 Calcium 8.2 L Magnesium 1.6 L
[2022-07-12] MEDS: Enoxaparin 40 MG/0.4 ML SYR SC (20:16)
[2022-07-12] MEDS: Atorvastatin 40 MG TAB 80 MG PO (20:16)
[2022-07-13] VITALS (7 sets, daily range): BP systolic 77–117; BP diastolic 45–76; PULSE 71–77; RESP 16–20; TEMP 36.3–37.1; O2SAT 92–96
[2022-07-13 06:13] LABS: Abs Immature Grans 0.07 10^3/uL (0.0-0.06); Absolute Basophil Count 0.06 10^3/uL (0.0-0.2); Absolute Eosinophil Count 0.13 10^3/uL (0.0-0.7); Absolute Lymphocyte Count 0.67 10^3/uL (1.2-3.4); Absolute Monocyte Count 0.63 10^3/uL (0.1-0.8); Absolute Neutrophil Count 6.56 10^3/uL (1.2-6.7); Basophils % 0.7; Eosinophils % 1.6; HCT 25.4 % (36.0-46.0); HGB 8.3 g/dL (11.2-15.7); Immature Grans % 0.9; Lymphocytes % 8.3; MCH 30.4 pg (27.0-33.0); MCHC 32.7 % (32.0-36.0); MCV 93 fL (80-95); MPV 10.5 fL (8.0-11.0); Monocytes % 7.8; Neutrophils % 80.7; Platelet Count 187 10^3/uL (130-400); RBC 2.73 10^6/uL (3.93-5.22); RDW 17.7 % (11.7-14.6); RDW-SD 58.6 fL; WBC 8.12 10^3/uL (4.4-10.8)
[2022-07-13 06:32] LABS: Anion Gap 4.1 mmol/L (3-11); BUN 27 mg/dL (7-18); CO2 28.9 mmol/L (21.0-32.0); CREATININE 1.3 mg/dL (0.55-1.02); Calcium 8.3 mg/dL (8.5-10.1); Chloride 105 mmol/L (98-107); Estimated GFR 42.88 (mL/min/1.73m2); Glucose 96 mg/dL (74-106); Magnesium 1.9 mg/dL (1.8-2.4); Potassium 4.5 mmol/L (3.5-5.1); Sodium 138 mmol/L (136-145)
[2022-07-13] MEDS: Tiotropium/Olodaterol 10 PUFF INHALER IH (08:07)
--- NOTE | 2022-07-13 08:53 | IN_ITS ---
PT Notes Visit Reasons: Dyspnea, pleural effusion, CHF Physical Therapy Inpatient Discharge Summary Date: 07/13/2022 In preparation for discharge Referring Doctor:? PT Orders: PT CONSULT: Eval/Treat Precautions: Fall. Standard. Activity as tolerated.? Patient Profile/Admitting Diagnosis:? 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) Anemia (Chronic) Bilateral hydronephrosis (Acute) Acute renal failure (Acute) Extrinsic ureteral obstruction (Acute) AAA (abdominal aortic aneurysm) (Chronic) Pulmonary emboli (Chronic) Pneumonia (Acute) Respiratory failure with hypoxia and hypercapnia (Acute) NSCLC of right lung (Acute) Palliative care patient (Acute) Pulmonary hypertension (Chronic) Cor pulmonale (Acute) Weakness of both legs (Acute) Hypoxia (Acute) Requires supplemental oxygen (Acute) Hypoxia (Acute) Shortness of breath (Acute) CHF (congestive heart failure) (Chronic) HTN (hypertension) (Chronic) Atrial fibrillation (Chronic) Smoker (Acute) COPD (chronic obstructive pulmonary disease) (Chronic) Medical History Acute and chronic respiratory failure ([id number]) Acute exacerbation of chronic obstructive pulmonary disease Acute exacerbation of congestive heart failure Acute on chronic respiratory failure with hypoxia and hypercapnia Acute respiratory acidosis Acute respiratory failure with hypoxia and hypercapnia LORENE (acute kidney injury) Atrial fibrillation Bilateral hydronephrosis Chronic respiratory failure with hypoxia and hypercapnia COPD (chronic obstructive pulmonary disease) Hemoptysis HTN (hypertension) Hydronephrosis Hydronephrosis Hypercholesteremia Lung cancer Lung mass Pulmonary hypertension Smoker Surgical History? S/P appendectomy S/P cholecystectomy S/P hysterectomy Social History/Home Situation: Lives alone in a private home with 4 steps to enter with rails on B sides.? Independent with no AD with all aspects of ADLs. Still drives. Equipment Owned/DME: FWW, SPC Subjective: NT. See most recent CUTTING AND BONING SUPERVISOR notes. Objective: General Observation: In bed ready to go home. Light headed fatigues quickly Mental Status:A and O x3 Pain: NT. See most recent CUTTING AND BONING SUPERVISOR notes.none Vital Signs: NT ROM: Right Upper Extremity: ? Shoulder Flexion WFL. Shoulder abduction WFL. Elbow flexion WFL. Wrist flexion WFL. Functional opening and closing of hand WFL. Left Upper Extremity:? Shoulder Flexion WFL. Shoulder abduction WFL. Elbow flexion WFL. Wrist flexion WFL. Functional opening and closing of hand WFL. Right Lower Extremity: Hip flexion WFL. Hip abduction WFL. Knee flexion WFL. Ankle dorsiflexion WFL. Ankle plantarflexion WFL. Left Lower Extremity: Hip flexion WFL. Hip abduction WFL. Knee flexion WFL. Ankle dorsiflexion WFL. Ankle plantarflexion WFL. Strength: Right Upper Extremity: Shoulder flexors 3+/5. Shoulder abductors 4/5. Elbow flexors 4/5. Elbow extensors 4/5. Cooperative Education Coordinator strong. Left Upper Extremity: Shoulder flexors 3+/5. Shoulder abductors 4/5. Elbow flexors 4/5. Elbow extensors 4/5. Cooperative Education Coordinator strong. Right Lower Extremity: Hip flexors 4-/5. Hip abductors 4-/5. Knee flexors 4-/5. Knee extensors 4-/5. Ankle dorsiflexors 4-/5. Ankle plantarflexors 4-/5. Left Lower Extremity: Hip flexors 4-/5. Hip abductors 4-/5. Knee flexors 4-/5. Knee extensors 4-/5. Ankle dorsiflexors 4-/5. Ankle plantarflexors 4-/5. BED MOBILITY/TRANSFERS? [place] to sit, uses arm rail of hosp bed'Ill use my granddaughter when I get home' ? Sit-stand: independent ? Stand-sit: independent, v/c for hand placement GAIT: Assistive Device:RW Weight bearing: Full Assistance: close guard Distance:? 40' Deviation: SOB,fatigued Balance:Able to stand without assistance of walker x 10 sec, fatigues quickly Static Sitting: Normal Dynamic Sitting: Normal Static Standing: Fair, needs light hand placement on walker Dynamic Standing: Fair minus Assessment: Patient presents with clinical signs and symptoms consistent with current/admitting diagnoses that have resulted to mobility limitations, gait instability, generalized weakness, and overall ADL decline as demonstrated by the following impairment level findings: 1.? Decreased strength to B UE/LE major muscle groups 2.? Impaired sitting/standing balance 3.? Impaired activity tolerance 4.? Shortness of breath Impairments are contributing to the following functional limitations: 1.? Decline in bed mobility skills 2.? Decline in transfer skills 3.? Difficulty with ambulation without assistive device and physical assistance 4.? Increased completion time for mobility ADL performance 5.? Increased risk for falls 6.? Difficulty with managing steps alone safely Goals: Goals X1 week 1. Supine-Sit independent 2. Sit-Supine independent 3. Sit-Stand independent 7. Independent gait on level surface with use of RW for at least 100 feet without report of dyspnea 8. Independent stair negotiation while holding onto B rails for at least 5 steps without report of pain nor dyspnea 9. Independent with home exercise program 10. Good static and dynamic standing balance/tolerance Treatment: Ambulation with RW x 40' with close guard. Sit to stand x5 with intermittent rest, LAQx5, marching in place x5. Advised continued PT while in hospital to achieve above outlined goals. DISCHARGE RECOMMENDATIONS: [] ? Home with no services [] [X] ? Home with services.? Patient will benefit from home health PT services in order to progress mobility level using least restrictive assistive ambulatory device, assess home safety, identify additional equipment needs, and establish a functional maintenance program that will increase ability of patient to remain at home. [] ? Home with outpatient PT [] [] ? SNF for continued rehabilitation []Pt. requests to go home has granddaughter to assist. She recognizes that she is weak. She would benefit from SNF due to lack of endurance and independence with negotiating stairs(4 to get in home), decreased katy to standing<30 sec, ambulation with RW(previous was with no AD or SPC) [] ? Alf Care [] [] ? SNF versus LTC based on ability to participate and progress [] TREATMENT CODE/TIME:20' Thank you for the opportunity to participate in the care of this patient.
[2022-07-13] MEDS: Normal Saline Flush 10 ML SYR IVP ×2 (11:06→19:41)
--- NOTE | 2022-07-13 12:01 | INPN_ITS ---
PT Notes Visit Reasons: Dyspnea, pleural effusion, CHF Inpatient Physical Therapy Evaluation Date: []07/13/2022 Referring Doctor: Maye Perla PT Orders: PT CONSULT: evaluate and treat Precautions: Standard Patient Profile/Admitting Diagnosis: Dispenia, CHF PMHX: Admitted 07/07 with SOB Social History/Home Situation: [] Current Functional Limitations: [] Equipment Owned/DME: [] Subjective: [] Objective: [] General Observation: [] Mental Status: [] Pain: [] Vital Signs: [] ROM: Right Upper Extremity: [] Left Upper Extremity: [] Right Lower Extremity: [] Left Lower Extremity: [] Strength: Right Upper Extremity: [] Left Upper Extremity: [] Right Lower Extremity: [] Left Lower Extremity: [] Sensation: [] Bed Mobility/Transfers: [] Gait: [] Balance: [] Static Sitting: [] Dynamic Sitting: [] Static Standing: [] Dynamic Standing: [] Special Tests: Mobility Limitations Standardized Measure [facility] AM-PAC 6 clicks Basic Mobility Inpatient Short Form: Raw Score: [] Standardized Score: [] CMS Score: [] Informed Consent/Education: Patient instructed in purpose of PT consult and plan of care. Assessment: Patient is a [] year old [] referred to physical therapy services with the diagnosis of []. Patient presents with clinical signs and symptoms consistent with [], as demonstrated by the following impairment level findings: []. Impairments are contributing to the following functional limitations: AMPAC score. Patient is assessed as a [] Low 65172 [] Moderate 98613 [] High 90146 complexity based on the following: History: [] Examination: [] Presentation: [] Decision Making: [] Goals: Goals X1 week 1. Supine-Sit [] 2. Sit-Supine [] 3. Sit-Stand [] 4. Stand-Sit [] 5. Bed-Chair [] 6. Chair-Bed [] 7. Gait [] 8. Stairs [] 9. Independent with home exercise program [] 10. Balance [] Plan of Care/Treatment Plan: 1-2x/day, 7 days/week x 1 week. Plan of care has been reviewed with the AIR INTERCEPT CONTROLLER SUPERVISOR providing the service under Physical Therapy direction. Initiate Physical Therapy intervention for strengthening, bed mobility, transfers, gait, stairs, balance training, use of assistive device. DISCHARGE RECOMMENDATIONS: [] [] Home with no services [] [] Home with services [specify] [] Home with outpatient PT [] [] SNF for continued rehabilitation [] [] Snf Care [] [] SNF versus LTC based on ability to participate and progress [] TREATMENT CODE/TIME: []
--- NOTE | 2022-07-13 15:09 | PT.INTREAT ---
Date of service: 07/13/22 Time of Service: 14:48 PT Notes Visit Reasons: Dyspnea, pleural effusion, CHF Inpatient Physical Therapy Treatment Note [facility] Date: 07/13/2022 PRECAUTIONS: Activity as tolerated SUBJECTIVE: Jessica is pleasant and agreeable to participating in PT. She reports that has been feeling weak and is worried that she will not be ready, functionally, to discharge to home tomorrow. OBJECTIVE: PAIN: No c/o pain BED MOBILITY/TRANSFERS Supine-sit: I Sit-supine: I Sit-stand: SBA Stand-sit: SBA GAIT: Assistive Device: FWW Weight bearing: Full Assistance: SBA Distance: 40' + 10' Deviation: SOB, B LE fatigue, seated rest x1 VITALS: 92% on RA TOILETING: Patient toileted with supervision ASSESSMENT: Patient demonstrates limited activity tolerance and requires cueing for safety with transfers and ambulation. PLAN: Continue with gait training and general conditioning for improved activity tolerance. TREATMENT CODE/TIME: 21 minutes; 97847 (14:48)
--- NOTE | 2022-07-13 15:33 | W.PM.PROGNOT ---
Date of Service Date of service: 07/13/22 Time of Service: 15:33 Assessment and Plan Assessment and plan (1) Pleural effusion on left: Status: Acute Assessment and plan: On RA and maintaining SPO2 > 90% No increased WOB (2) Bacteremia due to Klebsiella pneumoniae: Status: Acute Assessment and plan: WBC 8.51 Levofloxacin course completed (3) Weakness: Status: Acute Assessment and plan: PT/OT - progressing (4) Atrial fibrillation: Status: Chronic Assessment and plan: rate controlled Qualifiers: Atrial fibrillation type: permanent Qualified Code(s): I48.2 - Chronic atrial fibrillation (5) DVT prophylaxis: Status: Acute Assessment and plan: Enoxaparin (6) Discharge planning issues: Status: Acute Assessment and plan: continues to work with PT and maintaining RA and Exercise Ox is ok, anticipate discharge in 1-2 days to home with services. discussed with Dr. Finnegan Subjective Subjective Patient reports: no new complaints, tolerating liquids well, tolerating a regular diet, voiding w/o difficulty and afebrile; denies shortness of breath Interval history since last seen: feels weak and fatigued today Exam Const General: cooperative, no acute distress, frail appearing and ill appearing chronically Nutritional Appearance: thin Orientation: alert, awake and oriented x3 Chest Chest: normal inspection of the chest Resp Effort & Inspection: normal respiratory effort Auscultation: diminished lung sounds and no wheezes Cardio Rate: regular rate Rhythm: regular rhythm GI Inspection: normal to inspection Palpation: soft Neuro General: patient alert, patient awake and no focal motor deficits Objective Last Vital Signs Temp 36.3 C L 07/13/22 11:25 Pulse 76 07/13/22 11:25 Resp 16 07/13/22 11:25 BP 116/76 07/13/22 11:25 Pulse Ox 96 07/13/22 11:25 Laboratory Results - last 24 hr 07/09/22 07/13/22 07/13/22 07:45 05:42 05:42 WBC 8.12 RBC 2.73 L Hgb 8.3 L Hct 25.4 L MCV 93 MCH 30.4 MCHC 32.7 RDW 17.7 H Plt Count 187 MPV 10.5 Immature Gran % 0.9 Neutrophils % 80.7 Lymphocytes % 8.3 Monocytes % 7.8 Eosinophils % 1.6 Basophils % 0.7 Nucleated RBC % 0.0 Absolute Neutrophils 6.56 Absolute Lymphocytes 0.67 L Absolute Monocytes 0.63 Absolute Eosinophils 0.13 Absolute Basophils 0.06 Sodium 138 Potassium 4.5 Chloride 105 Carbon Dioxide 28.9 Anion Gap 4.1 BUN 27 H Creatinine 1.3 H Est GFR (CKD-EPI 2020) 42.88 Glucose 96 Calcium 8.3 L Magnesium 1.9 Path Cons Comment SEE COMMENT
[2022-07-13 17:01] LABS: Albumin, Body FLuid <1.0 g/dL (See Note)
--- NOTE | 2022-07-13 17:02 | PDOC.CMPRO ---
- If Service Date Differs Date of service: 07/13/22 Time of Service: 17:02 Care Management Progress Note S/O: Per report, Siomara was not feeling well today, and stated that she feels weak and fatigued. Per MD, she will likely be medically cleared in a day or two. CM will discuss options for discharge, including SNF, if she feels that she is not ready for discharge home, or HH services at home. Previously, she was disagreeable to both options. CM will continue to follow. A: Siomara is a 77 year old female admitted to [facility] on 07/07/22 with dyspnea, pleural effusion, CHF. P: Siomara will return home once she becomes medically cleared, with a resumption of HH services. Her granddaughter will likely drive her home via private vehicle. She will follow up with her PCP and discharge plan of care. CM will continue to follow.
--- NOTE | 2022-07-13 17:42 | CHAPLAIN ---
Siomara was resting in bed, curled up with her own robe on. She said she felt better, but today also told Care Management that she did not feel well and was not ready to go home. I'll continue to visit.
[2022-07-13] MEDS: Atorvastatin 40 MG TAB 80 MG PO (19:40)
[2022-07-13] MEDS: Enoxaparin 30 MG/0.3 ML SYR SC (19:41)
[2022-07-14 03:17] VITALS: BP 108/58; PULSE 86; RESP 18; TEMP 36.7; O2SAT 92
[2022-07-14] MEDS: Tiotropium/Olodaterol 10 PUFF INHALER IH (08:16)
[2022-07-14 08:22] VITALS: BP 91/53; PULSE 58; RESP 17; TEMP 36.6; O2SAT 95
[2022-07-14 11:36] VITALS: BP 106/61; PULSE 82; RESP 16; TEMP 36.6; O2SAT 99
--- NOTE | 2022-07-14 14:39 | PTTR_ITS ---
Date of service: 07/14/22 Time of Service: 08:56 PT Notes Visit Reasons: Dyspnea, pleural effusion, CHF Inpatient Physical Therapy Treatment Note [facility] Date: 07/14/2022 PRECAUTIONS: Activity as tolerated SUBJECTIVE: Jessica is pleasant and agreeable to participating in PT. She reports that she is feeling a little bit better but is worried that she is not strong enough to go home. After discussing PT recommendation of SNF placement due to limited activity tolerance and decreased level of mobility, she states I do not want to go to rehab, but I'll think about it. She also states my granddaught er will take care of me. OBJECTIVE: PAIN: No c/o pain BED MOBILITY/TRANSFERS Supine-sit: I Sit-stand: SBA Stand-sit: SBA GAIT: Assistive Device: FWW Weight bearing: Full Assistance: SBA Distance: 40' Deviation: SOB, B LE fatigue THEREX: Patient was instructed in a LE strengthening program, completed in a seated position, to include: ankle pumps, LAQ, hip flexion and hip abduction ~x6 reps each. She also completes chair push ups x6 reps. She requires rests between each exercise due to fatigue. ASSESSMENT: Patient demonstrates limited activity tolerance and and decreased mobility. She would benefit from continued participation in global strengthening and general conditioning at a SNF-level rehab prior to returning to home for improved safety and chances for success. PLAN: Continue with gait training and general conditioning for improved activity tolerance. TREATMENT CODE/TIME: 20 minutes; [id number] (08:58)
--- NOTE | 2022-07-14 16:46 | PCPN_ITS ---
Date of service: 07/14/22 Time of Service: 16:46 Assessment and Plan Assessment and plan (1) Goals of care, counseling/discussion: Status: Acute Assessment and plan: Patient with complex medical history, underlying etiology of peritoneal mass (fibrosis versus malignancy versus chronic dissecting AAA) still unclear, hydronephrosis resolved, slowly recovering from pulmonary infections but now with new pleural effusion. Exploration today of discharge planning and goals of care with patient was somewhat difficult. She seems to have some memory issues. Her thinking is not always logical. There may be some wishful thinking involved and that she has some realization that she is not ready to go home but is not willing to go to [facility] and hoping that the hospital will keep her until she is strong enough to go home. There is also some confusion over what procedures have been done but this could be related to her recent sepsis, and does seem that her medical providers have some confusion about the etiology of this as well. I will consider doing MMSE/[place] at future visit. Supportive counseling today around serious illness: - Reviewed current COLST: She actually would like to be admitted to the hospital and receive antibiotics and treatment and additional pleurocentesis if needed for treatment and symptom management. Therefore we are going to switch her from comfort care to avoid invasive interventions. Update COLST will be filed. Attempt was made to call daughter Yolette Mullins, but did not answer phone. I think it would be very helpful to discuss this further with her. If patient remains in hospital through the weekend, palliative care team will meet with her again. (2) Discharge planning issues: Status: Acute Assessment and plan: See discussion above (3) Weakness: Status: Acute Assessment and plan: See discussion above (4) Palliative care patient: Status: Acute Assessment and plan: See discussion above Subjective Subjective Interval history since last seen: Palliative care team was asked to meet with patient today to review goals of care. Patient was seen by palliative care team, Kathy Burgos NP approximately 8 weeks ago 05/21/2022. Patient with multiple hospital admissions times over the last several months for various medical issues including retroperitoneal mass versus fibrosis versus chronic dissecting AAA causing hydronephrosis requiring ureteral stent, recurrent pulmonary infections (bronchoscopy done), chronic hypoxia. Admitted several weeks ago with Klebsiella urosepsis sent home and readmitted several days later with large pleural effusion which was tapped (cytology with inflammatory cells but no obvious malignant process). Patient is now stabilized and no longer requires acute care. However hospital clinicians and physical therapy feel that she needs a subacute rehab stay before returning home to live with her granddaughter and great-grandchildren. Patient is not willing to go to [facility] and is planning to go home when I am ready , with help from her granddaughter and grandson in law. Patient has been informed that she is unable to remain any longer in the hospital. Patient says today that she is not strong enough to return home at this point but she also says she is not willing to go to [facility] Therefore I will have to go home . Patient is asked to describe what medical problems she currently has. Things are not going well . She is unable to tell me any specifics. When I meet with her today, she does not recall having pleurocentesis. But then later in the visit does remember this. She also says she had biopsy of the retroperitoneal mass, review [place] [facility] [place] shows that stenting was done and urine cytology and cytology done on brushings from the bladder were done as well but no discrete biopsy of the mass was done. What bothers you the most: Not much What bothers you the most: Nothing right now Goals: I want to go home What helps you cope: You just got to get through it . Finds family helpful and supportive. Palliative review of systems: Denies pain, GI symptoms, insomnia. Positive for shortness of breath with exertion and feeling tired all the time. Denies any depression or sadness. Advance care planning: -Advanced directive on file -COLST on file from May 2022: DNR, DNI, comfort measures only . Exam Narrative Exam Narrative: Pleasant and relaxed. Occasional deep cough. Does not appear dyspneic. Slightly pale. Moves easily in her chair. Good eye contact. Speech is fluid. Mental status exam: Alert. Oriented to month, most recent holiday ( was 2 days ago), 2020 or 2021 . Objective Last Vital Signs Temp 36.6 C 07/14/22 11:36 Pulse 82 07/14/22 11:36 Resp 16 07/14/22 11:36 BP 106/61 07/14/22 11:36 Pulse Ox 99 07/14/22 11:36 Laboratory Results - last 24 hr 07/09/22 07:45 Fluid Albumin <1.0
--- NOTE | 2022-07-14 17:33 | W.PM.PROGNOT ---
Date of Service Date of service: 07/14/22 Time of Service: 17:33 Assessment and Plan Assessment and plan (1) Pleural effusion on left: Status: Acute Assessment and plan: On RA and maintaining SPO2 > 90% No increased WOB awaiting cytology (2) Bacteremia due to Klebsiella pneumoniae: Status: Acute Assessment and plan: WBC 8.51 Levofloxacin course completed no fever (3) Weakness: Status: Acute Assessment and plan: PT/OT - progressing very slowly. recommendations for skilled rehabilitation which she is adamantly declining (4) Atrial fibrillation: Status: Chronic Assessment and plan: rate controlled Qualifiers: Atrial fibrillation type: permanent Qualified Code(s): I48.2 - Chronic atrial fibrillation (5) DVT prophylaxis: Status: Acute Assessment and plan: Enoxaparin (6) Discharge planning issues: Status: Acute Assessment and plan: continues to work with PT and maintaining RA and Exercise Ox is ok, anticipate discharge in 1-2 days to home with services despite recommendations to discharge to skilled rehab as she refuses case management following. discussed with Dr. Finnegan Subjective Subjective Patient reports: no new complaints, tolerating liquids well, tolerating a regular diet and afebrile; denies shortness of breath Interval history since last seen: patient working with PT and slow to progress. feeling weak with little stamina. Exam Const General: cooperative, no acute distress, frail appearing and ill appearing chronically Nutritional Appearance: thin Orientation: alert, awake and oriented x3 Chest Chest: normal inspection of the chest Resp Effort & Inspection: normal respiratory effort Auscultation: diminished lung sounds and no wheezes Cardio Rate: regular rate Rhythm: regular rhythm GI Inspection: normal to inspection Palpation: soft Neuro General: patient alert, patient awake and no focal motor deficits Objective Last Vital Signs Temp 36.6 C 07/14/22 11:36 Pulse 82 07/14/22 11:36 Resp 16 07/14/22 11:36 BP 106/61 07/14/22 11:36 Pulse Ox 99 07/14/22 11:36 Laboratory Results - last 24 hr 07/09/22 07:45 Fluid Albumin <1.0
--- NOTE | 2022-07-14 18:52 | PDOC.CMPRO ---
- If Service Date Differs Date of service: 07/14/22 Time of Service: 18:52 Care Management Progress Note S/O: Siomara was sitting up in her chair when CM met with her. PT is recommending that she go to short term rehab, which they expect will be longer than 1-2 weeks. CM discussed this with Siomara, who stated that she didn't feel ready for discharge today, and she adamantly declined to go to rehab. CM provided education regarding discharge readiness, as she may continue to recover at home or in a facility which will provide her with daily PT and OT. She did not identify barriers to SNF, other than the fact that she wants to be home. CM also discussed that referrals can be sent prior to her discharge, and if she decides to return home, but then feels that she would benefit from SNF, she can use this acute qualifying stay to transition to SNF from the community within 30 days of her admission. She declined this as well, stating that she would need to discuss it with her family. CM offered to call her grand daughter to go over details of these options, which she declined. Per provider, she will be discharged tomorrow, likely to home, or to SNF if she is agreeable. Referrals have not been sent, as Siomara has not provided consent to this. CM will continue to follow. A: Siomara is a 77 year old female admitted to [facility] on 07/07/22 with dyspnea, pleural effusion, CHF. P: Siomara will return home once she becomes medically cleared, with a resumption of services. Her granddaughter will likely drive her home via private vehicle. She will follow up with her PCP and discharge plan of care. CM will continue to follow.
[2022-07-14 19:45] VITALS: BP 116/77; PULSE 67; RESP 16; TEMP 36.5; O2SAT 94
[2022-07-14] MEDS: Atorvastatin 40 MG TAB 80 MG PO (20:58)
[2022-07-14 23:31] VITALS: BP 127/73; PULSE 87; RESP 19; TEMP 37.1; O2SAT 95
[2022-07-15 03:38] VITALS: BP 104/68; PULSE 80; RESP 18; TEMP 36.9; O2SAT 94
[2022-07-15 06:51] LABS: Platelet Count 163 10^3/uL (130-400)
[2022-07-15 07:43] VITALS: BP 106/62; PULSE 73; RESP 16; TEMP 37; O2SAT 95
[2022-07-15] MEDS: Enoxaparin 30 MG/0.3 ML SYR SC (09:39)
--- NOTE | 2022-07-15 09:45 | PT.INTREAT ---
Date of service: 07/15/22 Time of Service: 09:15 PT Notes Visit Reasons: Dyspnea, pleural effusion, CHF Inpatient Physical Therapy Treatment Note [facility] Date: 07/15/2022 PRECAUTIONS: Activity as tolerated SUBJECTIVE: Jessica is hesitant but agreeable to participating in PT. She reports that she just got back to bed from being washed up. She states that the most she has to walk in one stretch at home is from here to the door. OBJECTIVE: PAIN: No c/o pain BED MOBILITY/TRANSFERS Supine-sit: I Sit-supine: I Sit-stand: SBA Stand-sit: SBA GAIT: Assistive Device: No AD Weight bearing: Full Assistance: CGA Distance: 25' x2 + 20' Deviation: SOB, B LE weakness, increased fatigue THEREX: Patient was instructed in a LE strengthening program, completed in a seated position, to include: ankle pumps, heel raises, LAQ, hip flexion and hip abduction x10 reps each. She requires encouragement to achieve 10 reps with each exercise, and requires rests between each due to fatigue and SOB. She also completes bridging 2x5. ASSESSMENT: Patient demonstrates limited activity tolerance and and decreased mobility. She would benefit from continued participation in global strengthening and general conditioning at a SNF-level rehab prior to returning to home for improved safety and chances for success. PLAN: Patient to discharge to home later today, per provider. Recommend follow up with PT (due to patient's refusal to accept SNF-level rehab placement), upon discharge to home. TREATMENT CODE/TIME: 25 minutes; 60483, [id number] (09:15)
--- NOTE | 2022-07-15 10:12 | PDOC.CMDIS ---
- If Service Date Differs Date of service: 07/15/22 Time of Service: 10:12 LACE Index Scoring Tool - Questions: Length of Stay (in days): 7 - 13 Acuity (Admit via E.D.?): Yes Comorbidities: Congestive Heart Failure, Chronic Pulmonary Disease, Any Tumor E.D. Visits: 7 - Answers: Total Score: 17 Risk of Readmission: High Risk Care Management Discharge Reason for Hospitalization: dyspnea, pleural effusion, CHF Discharge Plan: Siomara will return home once she becomes medically cleared, with a resumption of HH/RN addition of PT/OT services. Her granddaughter will likely drive her home via private vehicle. She will follow up with her PCP and discharge plan of care. Patient/Family Education Needs: Review discharge instructions, discuss [facility] Me [employer]. Services Needed at Discharge: Home Health Care Services (RN, add PT)
[2022-07-15] MEDS: Tiotropium/Olodaterol 10 PUFF INHALER IH (10:57)
[2022-07-15 11:17] VITALS: BP 96/56; PULSE 72; RESP 16; TEMP 37; O2SAT 92
[2022-07-15 11:34] VITALS: O2SAT 92
[2022-07-15] MEDS: Normal Saline Flush 10 ML SYR IVP (11:37)
--- NOTE | 2022-07-15 12:37 | W.PM.DS.N ---
Date of service: 07/15/22 Time of Service: 12:37 DS: Diagnosis Discharge Diagnosis (1) Pleural effusion on left: Status: Acute (2) Bacteremia due to Klebsiella pneumoniae: Status: Acute (3) Weakness: Status: Acute (4) Atrial fibrillation: Status: Chronic Discharge Plan Disposition Patient Disposition: HOME W/HOME HEALTH SERVICE Condition: Stable Discharge Details Reason For Visit: Dyspnea, pleural effusion, CHF Admit Date/Time: 07/07/22 14:48 Admit Provider: Clinton Finnegan Attending Provider: Clinton Finnegan [facility] Hospital Course: This is a 77 year old female with complex medical history, underlying etiology of? peritoneal mass (fibrosis versus malignancy versus chronic dissecting AAA) still unclear, hydronephrosis resolved, slowly recovering from pulmonary infections but now with new pleural effusion that was drained on 07/09 by general surgery. Unfortunately a large volume was not send to lab so results questionable but showing reactive mesothelial cells. Cell block could not be obtained and lab is requesting a fresh sample of pleural fluid for cell block preparations if reaccumulation of pleural fluid occurs. She should have close follow up with her outpatient oncology team at [facility] as soon as possible. They are considering rheumatology referral as well as there is question of retroperitoneal fibrosis. Her oxygen has been weaned off, she remains medically stable but very weak. PT has been working with her and recommendations were for skilled rehab which she adamantly refuses. she will be discharged to home with home health services. discharge discussed with Dr Finnegan. Home Meds and New Rx's Prescriptions: Continued Xarelto 20 mg tablet 20 mg PO QPM Qty: 30 11RF Rx Instructions: must administer with evening meal diltiazem HCl 120 mg capsule,extended release 24hr 120 mg PO HS levofloxacin 250 mg tablet 250 mg PO DAILY Qty: 7 0RF atorvastatin [Lipitor] 80 mg Tablet 80 mg PO QPM albuterol sulfate [ProAir HFA] 90 mcg/actuation Hfa Aerosol Inhaler 2 puff INHALATION QID PRN ipratropium-albuterol 0.5 mg-3 mg(2.5 mg base)/3 mL Solution For Nebulization 3 ml UPD Q6H PRN PRN (Reason: shortness of breath or wheezing) Qty: 180 0RF Inhaler, Assist Devices [Pocket Chamber] 1 ea miscellaneous DIRECTED Qty: 0 0RF Stiolto Respimat 2.5-2.5 mcg/actuation mist 2 spray INHALATION DAILY Label Comments: Inhale 2 puff as directed once a day guaifenesin 600 mg tablet extended release 12hr 600 mg PO BID PRN Discharge Instructions Instructions: Pleural Effusion (DC) Stand Alone Forms: Nursing Discharge Form Referrals: HEMATOLOGY/[facility] [OTHER] - Sherwin Ceja [Primary Care Provider] - 07/26/22 2:30 pm Activity:: Activity as Tolerated Equipment/Supplies:: No Equipment Needed Diet:: As Tolerated Discharge Orders Discharge Orders: Discharge Order (Routine); Ordered 07/15/22 Ordered By: Tanesha Corral DS: Summary Time Spent with Patient providing and/or coordinating discharge services: Greater than 30 minutes Status at Discharge Functional status at discharge: uses cane/walker Overall status at discharge: patient is progressing back to baseline Mental Status: mental status grossly normal Speech and Movement: speech and movement normal Mood: congruent mood Affect: normal affect Exam Const General: cooperative, no acute distress, frail appearing and ill appearing chronically Nutritional Appearance: thin Orientation: alert, awake and oriented x3 Chest Chest: normal inspection of the chest Resp Effort & Inspection: normal respiratory effort Auscultation: diminished lung sounds and no wheezes Cardio Rate: regular rate Rhythm: regular rhythm GI Inspection: normal to inspection Palpation: soft Neuro General: patient alert, patient awake and no focal motor deficits Psych Mental Status: mental status grossly normal Speech and Movement: speech and movement normal Mood: congruent mood Affect: normal affect DS: Data Vitals/I&O Vitals and I&O: Vital Signs Temperature 37 C 07/15/22 11:17 Temperature Source Tympanic 07/15/22 11:17 Pulse 72 07/15/22 11:17 Pulse Rhythm Irregular 07/15/22 09:00 Pulse 73 07/07/22 15:10 Respiratory Rate 16 07/15/22 11:17 Respiratory Effort 07/15/22 09:00 Respiratory Depth Normal 07/15/22 09:00 Respiratory Pattern Normal 07/15/22 09:00 Blood Pressure 96/56 L 07/15/22 11:17 Blood Pressure Position Sitting 07/07/22 10:58 Pulse Oximetry 92 07/15/22 11:34 Oxygen Delivery Method Room Air 07/15/22 11:34 Oxygen Flow Rate 0 07/15/22 11:34 Pain Level 0 07/15/22 11:17 Comment 07/14/22 08:22 Intake & Output 07/14/22 07/15/22 07/15/22 23:59 11:59 23:59 Intake Total 360 / 360 1030 / 1030 Output Total 200 / 200 Balance 360 / 210 830 / 830 Weight 50.3 kg Intake: Oral 360 / 360 1030 / 1030 Output: Urine 200 / 200 Other: Urine Color Yellow Light Jennifer Urine Appearance Clear Clear Urine Odor Strong Comment pT stated she did not need to use the bathroom at this time. Will go back in to check. Stool Size Small Stool Characteristics Soft Voiding Methods Incontinent Bedside Commode Data Completed and Pending Labs on day of discharge: Labs from last 24 hours 07/15/22 05:38 Plt Count 163 PFSH All Active Problems (Updated 07/14/22 @ 16:57 by María Preston MD) Goals of care, counseling/discussion (Acute) Discharge planning issues (Acute) DVT prophylaxis (Acute) Pleural effusion on left (Acute) Hypoxemia (Acute) Ventricular tachycardia (Chronic) Bacteremia due to Klebsiella pneumoniae (Acute) Weakness (Acute) Pneumonia (Acute) Gross hematuria (Acute) Retroperitoneal mass (Acute) Anemia (Chronic) Bilateral hydronephrosis (Acute) Acute renal failure (Acute) AAA (abdominal aortic aneurysm) (Chronic) Pulmonary emboli (Chronic) Pneumonia (Acute) Respiratory failure with hypoxia and hypercapnia (Acute) NSCLC of right lung (Acute) Palliative care patient (Acute) Pulmonary hypertension (Chronic) Cor pulmonale (Acute) Weakness of both legs (Acute) Hypoxia (Acute) Requires supplemental oxygen (Acute) Hypoxia (Acute) Shortness of breath (Acute) CHF (congestive heart failure) (Chronic) HTN (hypertension) (Chronic) Atrial fibrillation (Chronic) Smoker (Acute) COPD (chronic obstructive pulmonary disease) (Chronic) Medical History Acute and chronic respiratory failure ([id number]) Acute exacerbation of chronic obstructive pulmonary disease Acute exacerbation of congestive heart failure Acute on chronic respiratory failure with hypoxia and hypercapnia Acute respiratory acidosis Acute respiratory failure with hypoxia and hypercapnia LORENE (acute kidney injury) Aortic mural thrombus Atrial fibrillation Bilateral hydronephrosis Chronic respiratory failure with hypoxia and hypercapnia COPD (chronic obstructive pulmonary disease) Extrinsic ureteral obstruction Hemoptysis HTN (hypertension) Hydronephrosis Hydronephrosis Hypercholesteremia Lung cancer Lung mass Pulmonary hypertension Smoker Surgical History H/O dissecting abdominal aortic aneurysm repair CHRONIC with mural thrombosis and calcification S/P appendectomy S/P cholecystectomy S/P hysterectomy Family History Father Hemochromatosis Cirrhosis due to hemochromatosis Diabetes Daughter Heart disease [place] in 40s Social History Smoking/Tobacco Use Status: Current-Occasional Tobacco Type: cigarettes Years smoked: 50 Quit status: considering quitting Counseling given: patient declined Smoking risk assessment performed?: Yes Alcohol Intake: never Drug use: Never Substance use type: does not use What type of physical activity do you participate in: none Do you feel safe at home: Yes Do you feel safe in your relationship?: Yes Additional Social history: lives alone, but a lot of family in the area. of lung cancer
--- NOTE | 2022-07-15 12:55 | PDOC.HHF2F_ITS ---
Home Health Certification Home Health Certification: 1. Encounter Date and Reason I certify that Siomara Quinones was seen by Tanesha Corral on 07/15/22 and that I had a [id number] encounter with this patient that meets the physician face to face encounter requirements. 2. Clinical Findings Supporting Skilled Need and Homebound Status I certify that home health services are medically necessary, include either intermittent assisted and/or physical/speech therapy, and that this patie nt is homebound in that absences from the home require considerable and taxing effort and are infrequent or of short duration, or are attributable to the need to receive medical care. [X] (a) Attached documentation from encounter provides clinical findings supporting skilled need and homebound status (including what assistance patient requires to leave the home). The encounter with the patient was in whole, or in part, for the following medical condition, which is the primary reason for home health care: Dyspnea, pleural effusion, CHF Physical and occupational Therapy: routine evaluation for global strengthening and general conditioning, home safety evaluation, fall management program, strengthening and gait training. Homebound: patient is unable to safely leave the house unattended d/t ?limited activity tolerance and and decreased mobility, shortness of breath limiting distance. 3. Certification and Authentication I certify that I composed the above information based on my clinical judgement relating to this patient's medical condition and, if applicable, clinical findings communicated to me by the NPP or inpatient physician who performed the Home Health Referral. All further orders will be obtained through __Sherwin Ceja MD__(Community Based Physician - PCP)
--- NOTE | 2022-07-15 18:00 | INDS_ITS ---
PT Notes Visit Reasons: Dyspnea, pleural effusion, CHF Physical Therapy Inpatient Discharge Summary Date: 07/15/2022 Date of service: 07/13/2022 through 07/15/2022 This is a clinical summary of care provided for the duration of dates listed above. No charge was made in the completion of this documentation. Referring Doctor:? PT Orders: PT CONSULT: Eval/Treat Precautions: Fall. Standard. Activity as tolerated.? Patient Profile/Admitting Diagnosis:? Patient is a 77-year-old female who presented to the ED planes of shortness of breath and hypoxemia. Patient this is, atrial fibrillation, and pleural effusion. PMHX: All Active Problems?(Updated 06/28/22 @ 16:34 by Nish Sun NP) Weakness (Acute) Pneumonia (Acute) Acute uremia (Acute) Acute UTI (Acute) Gross hematuria (Acute) 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) Anemia (Chronic) Bilateral hydronephrosis (Acute) Acute renal failure (Acute) Extrinsic ureteral obstruction (Acute) AAA (abdominal aortic aneurysm) (Chronic) Pulmonary emboli (Chronic) Pneumonia (Acute) Respiratory failure with hypoxia and hypercapnia (Acute) NSCLC of right lung (Acute) Palliative care patient (Acute) Pulmonary hypertension (Chronic) Cor pulmonale (Acute) Weakness of both legs (Acute) Hypoxia (Acute) Requires supplemental oxygen (Acute) Hypoxia (Acute) Shortness of breath (Acute) CHF (congestive heart failure) (Chronic) HTN (hypertension) (Chronic) Atrial fibrillation (Chronic) Smoker (Acute) COPD (chronic obstructive pulmonary disease) (Chronic) Medical History Acute and chronic respiratory failure ([id number]) Acute exacerbation of chronic obstructive pulmonary disease Acute exacerbation of congestive heart failure Acute on chronic respiratory failure with hypoxia and hypercapnia Acute respiratory acidosis Acute respiratory failure with hypoxia and hypercapnia LORENE (acute kidney injury) Atrial fibrillation Bilateral hydronephrosis Chronic respiratory failure with hypoxia and hypercapnia COPD (chronic obstructive pulmonary disease) Hemoptysis HTN (hypertension) Hydronephrosis Hydronephrosis Hypercholesteremia Lung cancer Lung mass Pulmonary hypertension Smoker Surgical History? S/P appendectomy S/P cholecystectomy S/P hysterectomy Social History/Home Situation: Lives alone in a private home with 4 steps to enter with rails on B sides.? Independent with no AD with all aspects of ADLs. Still drives. Equipment Owned/DME: [facility], [facility] Subjective: NT. See most recent [employer] notes. Objective: General Observation: NT. See most recent [employer] notes Mental Status:NT. See most recent [employer] notes Pain: NT. See most recent [employer] notes Vital Signs: NT. See most recent [employer] notes ROM: Right Upper Extremity: ? Shoulder Flexion WFL. Shoulder abduction WFL. Elbow flexion WFL. Wrist flexion WFL. Functional opening and closing of hand WFL. Left Upper Extremity:? Shoulder Flexion WFL. Shoulder abduction WFL. Elbow flexion WFL. Wrist flexion WFL. Functional opening and closing of hand WFL. Right Lower Extremity: Hip flexion WFL. Hip abduction WFL. Knee flexion WFL. Ankle dorsiflexion WFL. Ankle plantarflexion WFL. Left Lower Extremity: Hip flexion WFL. Hip abduction WFL. Knee flexion WFL. Ankle dorsiflexion WFL. Ankle plantarflexion WFL. Strength: Right Upper Extremity: Shoulder flexors 3+/5. Shoulder abductors 4/5. Elbow flexors 4/5. Elbow extensors 4/5. Rental Sales Associate strong. Left Upper Extremity: Shoulder flexors 3+/5. Shoulder abductors 4/5. Elbow flexors 4/5. Elbow extensors 4/5. Rental Sales Associate strong. Right Lower Extremity: Hip flexors 4-/5. Hip abductors 4-/5. Knee flexors 4-/5. Knee extensors 4-/5. Ankle dorsiflexors 4-/5. Ankle plantarflexors 4-/5. Left Lower Extremity: Hip flexors 4-/5. Hip abductors 4-/5. Knee flexors 4-/5. Knee extensors 4-/5. Ankle dorsiflexors 4-/5. Ankle plantarflexors 4-/5. BED MOBILITY/TRANSFERS? Supine-sit: I Sit-supine: I Sit-stand: SBA ? Stand-sit: SBA GAIT: Assistive Device: No AD Weight bearing: Full Assistance: CGA Distance: 25' x2 + 20' Deviation: SOB, B LE weakness, increased fatigue Assessment: Patient presents with clinical signs and symptoms consistent with current/admitting diagnoses that have resulted to mobility limitations, gait instability, generalized weakness, and overall ADL decline as demonstrated by the following impairment level findings: 1.? Decreased strength to B UE/LE major muscle groups 2.? Impaired sitting/standing balance 3.? Impaired activity tolerance 4.? Shortness of breath Impairments are contributing to the following functional limitations: 1.? Decline in bed mobility skills 2.? Decline in transfer skills 3.? Difficulty with ambulation without assistive device and physical assistance 4.? Increased completion time for mobility ADL performance 5.? Increased risk for falls 6.? Difficulty with managing steps alone safely Goals: Goals X1 week 1. Supine-Sit independent NOT MET 2. Sit-Supine independent NOT MET 3. Sit-Stand independent NOT MET 7. Independent gait on level surface with use of RW for at least 100 feet without report of? dyspnea NOT MET 8. Independent stair negotiation while holding onto B rails for at least 5 steps without report of pain nor dyspnea NOT MET 9. Independent with home exercise program NOT MET 10. Good static and dynamic standing balance/tolerance NOT MET DISCHARGE RECOMMENDATIONS: [] ? Home with no services [] [] ? Home with services [specify] [] ? Home with outpatient PT [] [X] ? SNF for continued rehabilitation. Patient will benefit from [facility] facility placement for continued skilled physical therapy services in order to progress mobility level, strength, and balance in preparation for a safe discharge to home. [] ? House Coordinator Care [] [] ? SNF versus LTC based on ability to participate and progress [] TREATMENT CODE/TIME: PR Thank you for the opportunity to participate in the care of this patient. Andressa Cartagena PT, DPT, CLT [facility] [place], [place]
== END 2022-07-15 14:51 | disposition home health service (06) | DRG 186 ==
LOC: ER 15:04 → MS 15:36
PROVIDERS: Nurse Practitioner Acute Care; Nurse Practitioner Family; Surgery; Admitting Provider Internal Medicine; Emergency Provider Student in an Organized Health Care Education/Training Program; PCP Family Medicine; Visit Provider Internal Medicine
PROC: 0W9B3ZX Drainage of Left Pleural Cavity, Percutaneous Approach, Diagnostic (ICD-10-PCS; CPT 32554; principal; 2022-07-09 07:30)
DX: J90 Pleural effusion, not elsewhere classified (principal); I71.02 Dissection of abdominal aorta; I47.29 Other ventricular tachycardia; I48.20 Chronic atrial fibrillation, unspecified; R78.81 Bacteremia; B96.1 Klebsiella pneumoniae [K. pneumoniae] as the cause of diseases classified elsewhere; R53.1 Weakness; Z79.01 Long term (current) use of anticoagulants; R09.02 Hypoxemia; D64.9 Anemia, unspecified; I27.20 Pulmonary hypertension, unspecified; I11.0 Hypertensive heart disease with heart failure; I50.9 Heart failure, unspecified; J44.9 Chronic obstructive pulmonary disease, unspecified; F17.210 Nicotine dependence, cigarettes, uncomplicated; Z86.711 Personal history of pulmonary embolism; Z85.118 Personal history of other malignant neoplasm of bronchus and lung; Z66 Do not resuscitate; R19.09 Other intra-abdominal and pelvic swelling, mass and lump; N13.5 Crossing vessel and stricture of ureter without hydronephrosis
CPT/HCPCS: 32554; 36415; 71275; 80048; 80053; 82042; 82805; 84145; 87040; 87635; 89051; 93005; 93308; 94618; 94640; 97110; 97162; 97530; 99285; J1650; 71045; 81003; 81015; 81373; 83735; 83880; 83986; 84439; 84443; 84484; 85025; 85049; 85610; 85730; 87070; 87086; 87205; 88104; 93010; 94667; 99223; 99232; 99233; 99239; J3475

== ENCOUNTER 2022-07-16 13:58 | Observation (INO) | payer MEDICARE, SELFPAY ==
[2022-07-16] VITALS (29 sets, daily range): BP systolic 94–116; BP diastolic 37–71; PULSE 58–81; RESP 13–24; TEMP 35.9–36.6; O2SAT 87–100
--- NOTE | 2022-07-16 14:10 | ED.GENADUL_ITS ---
Discharge Plan Disposition Patient Disposition: [facility] INPATIENT Condition: Poor Discharge Details Chief Complaint: SOB Clinical Impression: Adult failure to thrive Admit Date/Time: 07/16/22 16:20 Admit Provider: Clinton Finnegan Attending Provider: Clinton Finnegan Primary Care Provider: Sherwin Ceja ED Provider: Shirin Storey Discharge Instructions Activity:: Activity as Tolerated Equipment/Supplies:: No Equipment Needed Diet:: As Tolerated Discharge Data Discharge Date/Time-TO BE ENTERED AT DEPARTURE: 07/16/22 17:25 Medical Decision Making <Nish Sun NP - Last Filed: 07/17/22 08:14> Patient presenting to the emergency department for chief complaint of weakness. Patient was just discharged from the hospital yesterday and there was discussion of her going to rehab facility due to her weakness. At time of discharge patient had been going back and forth about going to rehab but decided to attempt to go home. Then right if she was going home decided that she would benefit from rehab stay. Patient was discharged home to have home health consult and to work on rehab placement on an outpatient basis. Was informed that patient was denied rehab but patient is still significantly weak and unable to perform daily tasks which she does live alone with some family support but not within the house. Physical exam shows no focal weakness but does have some generalized weakness, clear but diminished lung sounds, heart sounds are within normal range but is irregularly irregular with is consistent with patient's A. fib. Patient does appear chronically ill and frail but patient is denying any new or worsening in condition since being discharged yesterday. Spoke with case management and they are requesting a physical therapy consult prior to going to health and rehab. Patient was slightly hypoxic when she got here and staff developer initiated oxygen due to that. Patient does not normally wear home oxygen. Physical therapist stated that patient became hypotensive with trying to set up but had such significant weakness that could not get patient to standing position. Did reassess patient's vital signs and patient had similar vital signs at time of discharge from the hospital and I do not feel this is a new finding. While awaiting further evaluation from case management will give patient 500 mL fluid bolus to see if this helps. Otherwise I agree that patient is not safe to return home but given no new or worsening symptoms do not feel that any further emergency department work-up is needed and that patient needs longer recovery with skilled PT/nursing staff. <Karin Brooks DO - Last Filed: 07/17/22 08:59> Patient presenting to the emergency department for chief complaint of weakness. Patient was just discharged from the hospital yesterday and there was discussion of her going to rehab facility due to her weakness. At time of discharge patient had been going back and forth about going to rehab but decided to attempt to go home. Then right if she was going home decided that she would benefit from rehab stay. Patient was discharged home to have home health consult and to work on rehab placement on an outpatient basis. Was informed that patient was denied rehab but patient is still significantly weak and unable to perform daily tasks which she does live alone with some family support but not within the house. Physical exam shows no focal weakness but does have some generalized weakness, clear but diminished lung sounds, heart sounds are within normal range but is irregularly irregular with is consistent with patient's A. fib. Patient does appear chronically ill and frail but patient is denying any new or worsening in condition since being discharged yesterday. Spoke with case management and they are requesting a physical therapy consult prior to going to health and rehab. Patient was slightly hypoxic when she got here and staff developer initiated oxygen due to that. Patient does not normally wear home oxygen. Physical therapist stated that patient became hypotensive with trying to set up but had such significant weakness that could not get patient to standing position. Did reassess patient's vital signs and patient had similar vital signs at time of discharge from the hospital and I do not feel this is a new finding. While awaiting further evaluation from case management will give patient 500 mL fluid bolus to see if this helps. Otherwise I agree that patient is not safe to return home but given no new or worsening symptoms do not feel that any further emergency department work-up is needed and that patient needs longer recovery with skilled PT/nursing staff. Dr. Brooks Pt not seen or evaluated by me but I was available for consult if needed. <REYNA Strong - Last Filed: 07/29/22 08:46> Patient presenting to the emergency department for chief complaint of weakness. Patient was just discharged from the hospital yesterday and there was discussion of her going to rehab facility due to her weakness. At time of discharge patient had been going back and forth about going to rehab but decided to attempt to go home. Then right if she was going home decided that she would benefit from rehab stay. Patient was discharged home to have home health consult and to work on rehab placement on an outpatient basis. Was informed that patient was denied rehab but patient is still significantly weak and unable to perform daily tasks which she does live alone with some family support but not within the house. Physical exam shows no focal weakness but does have some generalized weakness, clear but diminished lung sounds, heart sounds are within normal range but is irregularly irregular with is consistent with patient's A. fib. Patient does appear chronically ill and frail but patient is denying any new or worsening in condition since being discharged yesterday. Spoke with case management and they are requesting a physical therapy consult prior to going to health and rehab. Patient was slightly hypoxic when she got here and staff developer initiated oxygen due to that. Patient does not normally wear home oxygen. Physical therapist stated that patient became hypotensive with trying to set up but had such significant weakness that could not get patient to standing position. Did reassess patient's vital signs and patient had similar vital signs at time of discharge from the hospital and I do not feel this is a new finding. While awaiting further evaluation from case management will give patient 500 mL fluid bolus to see if this helps. Otherwise I agree that patient is not safe to return home but given no new or worsening symptoms do not feel that any further emergency department work-up is needed and that patient needs longer recovery with skilled PT/nursing staff. Dr. Brooks Pt not seen or evaluated by me but I was available for consult if needed. [place] Patient is not able to be placed at residential facility at this time. Consulted with hospitalist who agrees to observation until safe discharge to facility is possible. Elizabeth agreeable to this plan HPI <Nish Sun NP - Last Filed: 07/17/22 08:14> General Mode of arrival: wheelchair . Date/Time Provider Initiated Documentation: 07/16/22 14:03 . Limitations to Documentation: no limitations . Information obtained by: patient, family and RN notes reviewed . History of Present Illness 77 year old F presents to the emergency department with the chief complaint of weakness, described as moderate and similar to prior epis odes, Patient started experiencing this day(s) and it has been constant. No relieving factors improve symptom(s), No exacerbating factors reported . Patient notes no other symptoms.. Related Data Home Medications Medication Instructions Recorded Confirmed atorvastatin 80 mg tablet (Lipitor) 80 mg PO QPM 11/09/18 07/16/22 rivaroxaban 20 mg tablet (Xarelto) 20 mg PO QPM #30 tabs 03/14/19 07/16/22 diltiazem HCl 120 mg 120 mg PO HS 09/21/19 07/07/22 capsule,extended release 24 hr Inhaler, Assist Devices [Pocket 1 ea miscellaneous DIRECTED ##0 08/27/21 07/07/22 Chamber] tiotropium 2.5 mcg-olodaterol 2.5 2 puff inhalation DAILY 03/17/22 07/16/22 mcg/actuation mist for inhalation (Stiolto Respimat) guaifenesin 600 mg tablet, 600 mg PO BID PRN 05/20/22 07/16/22 extended release 12 hr albuterol sulfate 90 mcg/actuation 1 - 2 puff inhalation Q4H PRN 07/16/22 07/16/22 aerosol inhaler (Ventolin HFA) fluticasone propionate 50 1 spray intranasal HS 07/16/22 07/16/22 mcg/actuation nasal spray,suspension glycerin (adult) 1 supp OK BID PRN 07/16/22 07/16/22 multivitamin-iron sulfate 15 1 tab PO DAILY 07/16/22 07/16/22 mg-folic acid 400 mcg tablet (Tab-A-Charlie Multivitamin w-iron) docusate sodium 100 mg capsule 100 mg PO TID PRN PRN #0 caps 07/19/22 (Colace) magnesium chloride 64 mg 64 mg PO TID #90 tabs 07/19/22 (magnesium chloride) tablet,delayed release (Mag 64) levofloxacin 250 mg tablet 250 mg PO DAILY #7 tabs 07/22/22 07/22/22 Previous Rx's Medication Instructions Recorded rivaroxaban 20 mg tablet (Xarelto) 20 mg PO QPM #30 tabs 03/14/19 Inhaler, Assist Devices [Pocket 1 ea miscellaneous DIRECTED ##0 08/27/21 Chamber] docusate sodium 100 mg capsule 100 mg PO TID PRN PRN #0 caps 07/19/22 (Colace) magnesium chloride 64 mg 64 mg PO TID #90 tabs 07/19/22 (magnesium chloride) tablet,delayed release (Mag 64) levofloxacin 250 mg tablet 250 mg PO DAILY #7 tabs 07/22/22 Allergies Allergy/AdvReac Type Severity Reaction Status Date / Time No Known Allergies Allergy Unverified 07/16/22 14:14 General Stated Complaint: SOB BOGDAN: 2 Review of Systems <Nish Sun NP - Last Filed: 07/17/22 08:14> Constitutional Constitutional: Denies chills, Reports fatigue, Denies fever(s), Reports malaise and Reports weakness Cardiovascular Cardiovascular: Denies chest pain, Denies syncope, Reports dyspnea and Reports dyspnea on exertion Respiratory Respiratory: Reports dyspnea and Reports dyspnea on exertion Gastrointestinal Gastrointestinal: Denies abdominal pain, Denies diarrhea, Denies nausea and Denies vomiting Genitourinary Genitourinary: Denies dysuria Integumentary/Breasts Skin/Breast: Denies rash Neurologic Neurologic: Denies syncope and Reports weakness Endocrine Endocrine: Reports fatigue PFSH <Nish Sun NP - Last Filed: 07/17/22 08:14> All Active Problems Adult failure to thrive (Acute) Goals of care, counseling/discussion (Acute) Hypoxemia (Acute) Ventricular tachycardia (Chronic) Bacteremia due to Klebsiella pneumoniae (Acute) Weakness (Acute) Pneumonia (Acute) Gross hematuria (Acute) Retroperitoneal mass (Acute) Anemia (Chronic) Bilateral hydronephrosis (Acute) Acute renal failure (Acute) AAA (abdominal aortic aneurysm) (Chronic) Pulmonary emboli (Chronic) Pneumonia (Acute) Respiratory failure with hypoxia and hypercapnia (Acute) NSCLC of right lung (Acute) Palliative care patient (Acute) Pulmonary hypertension (Chronic) Cor pulmonale (Acute) Weakness of both legs (Acute) Hypoxia (Acute) Requires supplemental oxygen (Acute) Hypoxia (Acute) Shortness of breath (Acute) CHF (congestive heart failure) (Chronic) HTN (hypertension) (Chronic) Atrial fibrillation (Chronic) Smoker (Acute) COPD (chronic obstructive pulmonary disease) (Chronic) Medical History Acute and chronic respiratory failure ([id number]) Acute exacerbation of chronic obstructive pulmonary disease Acute exacerbation of congestive heart failure Acute on chronic respiratory failure with hypoxia and hypercapnia Acute respiratory acidosis Acute respiratory failure with hypoxia and hypercapnia LORENE (acute kidney injury) Aortic mural thrombus Atrial fibrillation Bilateral hydronephrosis Chronic respiratory failure with hypoxia and hypercapnia COPD (chronic obstructive pulmonary disease) Extrinsic ureteral obstruction Hemoptysis HTN (hypertension) Hydronephrosis Hydronephrosis Hypercholesteremia Lung cancer Lung mass Pulmonary hypertension Smoker Surgical History H/O dissecting abdominal aortic aneurysm repair CHRONIC with mural thrombosis and calcification S/P appendectomy S/P cholecystectomy S/P hysterectomy Family History Father Hemochromatosis Cirrhosis due to hemochromatosis Diabetes Daughter Heart disease LA in 40s Social History Smoking/Tobacco Use Status: Former Tobacco Use Quit status: considering quitting Counseling given: patient declined Smoking risk assessment performed?: Yes Alcohol Intake: never Drug use: Never Substance use type: does not use Details: quit smoking a few days ago What type of physical activity do you participate in: none Do you feel safe at home: Yes Do you feel safe in your relationship?: Yes Additional Social history: lives alone, but a lot of family in the area. of lung cancer Exam <Nish Sun NP - Last Filed: 07/17/22 08:14> Const General: frail appearing and ill appearing chronically Nutritional Appearance: thin Orientation: alert, awake and oriented x3 HENMT Head: normal to inspection, normocephalic and atraumatic Resp Effort & Inspection: normal respiratory effort, able to speak in complete sentences, no tripod positioning and no use of accessory muscles Auscultation: clear to auscultation bilaterally and diminished lung sounds bilaterally in the lower lung moses Cardio Rate: regular rate Rhythm: abnormal rhythm irregularly irregular Heart Sounds: S1 normal and S2 normal Pulses: normal peripheral pulses Neuro General: patient alert, patient awake, patient oriented x3, moves all extremities and no focal motor deficits Course <Nish Sun NP - Last Filed: 07/17/22 08:14> Vital Signs Vital signs: Vital Signs Temperature 36.6 C 07/16/22 14:00 Pulse 70 07/16/22 14:00 Respiratory Rate 07/16/22 14:00 Blood Pressure 101/37 L 07/16/22 14:00 Pulse Oximetry 87 L 07/16/22 14:00 Temperature 36.6 C 07/16/22 14:00 Temperature Source Skin 07/16/22 14:00 Pulse 70 07/16/22 14:00 Respiratory Rate 22 07/16/22 14:00 Blood Pressure 101/37 L 07/16/22 14:00 Pulse Oximetry 98 07/16/22 14:08 Oxygen Delivery Method Nasal Cannula 07/16/22 14:08 Oxygen Flow Rate 2 07/16/22 14:08 Pain Level 0 07/16/22 14:00 Sign Out <Nish Sun NP - Last Filed: 07/17/22 08:14> Sign Out Data: Sign Out Comment: Patient pending completion of fluids and disposition from care management for possible observation stay versus discharge to rehab facility for generalized weakness. Last updated by Nish Sun NP at 07/16/22 15:17
--- NOTE | 2022-07-16 14:18 | PT.INIE ---
PT Notes Inpatient Physical Therapy Evaluation Date: 07/16/2022 Referring Doctor: Nish Sun PT Orders: PT CONSULT: Evaluate for discharge recommendations Precautions: Fall risk, standard Patient Profile/Admitting Diagnosis: 77 yo female being seen in ER for PT consultation for discharge consideration, medical chart review documents diagnosis of pneumonia and left pleural effusion. She was discharged from [facility] yesterday to home, having been admitted for Dyspnea, pleural effusion,? CHF, and A fib. PMHX:All Active Problems?(Updated 07/14/22 @ 16:57 by María Preston MD) Goals of care, counseling/discussion (Acute) Discharge planning issues (Acute) DVT prophylaxis (Acute) Pleural effusion on left (Acute) Hypoxemia (Acute) Ventricular tachycardia (Chronic) Bacteremia due to Klebsiella pneumoniae (Acute) Weakness (Acute) Pneumonia (Acute) Gross hematuria (Acute) Retroperitoneal mass (Acute) Anemia (Chronic) Bilateral hydronephrosis (Acute) Acute renal failure (Acute) AAA (abdominal aortic aneurysm) (Chronic) Pulmonary emboli (Chronic) Pneumonia (Acute) Respiratory failure with hypoxia and hypercapnia (Acute) NSCLC of right lung (Acute) Palliative care patient (Acute) Pulmonary hypertension (Chronic) Cor pulmonale (Acute) Weakness of both legs (Acute) Hypoxia (Acute) Requires supplemental oxygen (Acute) Hypoxia (Acute) Shortness of breath (Acute) CHF (congestive heart failure) (Chronic) HTN (hypertension) (Chronic) Atrial fibrillation (Chronic) Smoker (Acute) COPD (chronic obstructive pulmonary disease) (Chronic) Medical History Acute and chronic respiratory failure ([id number]) Acute exacerbation of chronic obstructive pulmonary disease Acute exacerbation of congestive heart failure Acute on chronic respiratory failure with hypoxia and hypercapnia Acute respiratory acidosis Acute respiratory failure with hypoxia and hypercapnia LORENE (acute kidney injury) Aortic mural thrombus Atrial fibrillation Bilateral hydronephrosis Chronic respiratory failure with hypoxia and hypercapnia COPD (chronic obstructive pulmonary disease) Extrinsic ureteral obstruction Hemoptysis HTN (hypertension) Hydronephrosis Hydronephrosis Hypercholesteremia Lung cancer Lung mass Pulmonary hypertension Smoker Surgical History? H/O dissecting abdominal aortic aneurysm repair CHRONIC with mural thrombosis and calcificationS/P appendectomy S/P cholecystectomy S/P hysterectomy Social History/Home Situation: Lives in a private home with her 30 yo granddaughter. She has 4 steps with a rail to enter her home, her home is all on 1 level. Current Functional Limitations: Unable to stand, requires assist to sit at EOB, relying on 2L O2, unable to ambulate in her home to even use the bathroom. Equipment Owned/DME: Cane, generally does not use oxygen Subjective: Feels so week, she can not move. She could not even walk to make it to the bathroom at home with her granddaughter helping, and an accident(s). She is currently choosing not to drive, because she knows she is not safe. Her weakness set in about a week ago. Very hard to breath, she feels short of breath. Objective: General Observation: Lying in hospital bed, NC with 2 L O2. Appears very weak and frail Mental Status: Not oriented to time, she states is 2020, she does not know the date or day of the week. She knows her name and is oriented to her date of . She thinks she is a [facility]. Pain: 0/10 Vital Signs: 101/59 BP, HR 68, 96 O2 with 2L O2 NC. Sitting 95/52 BP, 61 HR, RR 30. Returning to lying down 100/48 BP, HR 60 ROM: Right Upper Extremity: Grossly WFL Left Upper Extremity: Grossly WFL Right Lower Extremity: Grossly WFL Left Lower Extremity: Grossly WFL Strength: Right Upper Extremity: 3/5 grossly Left Upper Extremity: 3/5 grossly Right Lower Extremity: 3/5 grossly Left Lower Extremity: 3/5 grossly Bed Mobility/Transfers: Min assist x1 for supine to sit at edge of bed, and for return to supine Patient unable to stand due to feeling of nausea, and dizziness Patient barely able to move arms and legs while just lying in bed, due to her feeling of fatigue Gait: Unable to assess Balance: Static Sitting: Poor Dynamic Sitting: Poor Static Standing: Unable to assess Dynamic Standing: Unable to assess Informed Consent/Education: Patient instructed in purpose of PT consult and plan of care. Assessment: Patient is a 77 year old female referred to physical therapy services for evaluation of appropriate discharge recommendation, with diagnosis of medical record of pneumonia, recently having been discharged yesterday from [facility] for management of CHF, A. fib, and pleural effusion with dyspnea. Patient presents with remarkable weakness, high respiratory rate and shortness of breath dependent on O2, unstable vitals with very low blood pressure with attempt of just sitting. From my professional perspective, she does not appear safe for return home, and unstable enough where admission would probably be most appropriate. Functional impairments include assist for bed mobility, unable to stand or walk, unstable vitals and mental status. It appears her medical condition has greatly declined since her discharge yesterday. Patient is assessed as a High [id number] complexity based on the following: History: Comorbidities Examination: See above impairments and functional limitations outlined in assessment Presentation: Unstable Decision Making: Easy Goals: Goals X1 week 1. Supine-Sit independent 2. Sit-Supine independent 3. Sit-Stand independent 4. Stand-Sit independent 5. Bed-Chair independent 6. Chair-Bed independent 7. Gait household distance of 40 feet with walker 8. Stairs 4 with rail 9. Independent with home exercise program 10. Balance good with dynamic sitting and ambulation activity Plan of Care/Treatment Plan: 1-2x/day, 7 days/week x 1 week. Plan of care has been reviewed with the LABOR CONCILIATOR providing the service under Physical Therapy direction. Initiate Physical Therapy intervention for strengthening, bed mobility, transfers, gait, stairs, balance training, use of assistive device. DISCHARGE RECOMMENDATIONS: Recommend inpatient admission, as from within my professional standpoint she appears unsafe to function without assist, and her vitals are unstable with attempt of mobility, with goal of returning patient home after inpatient stay with home health PT service assuming she has good medical improvements, this will continue to be reassessed. TREATMENT CODE/TIME: [id number], 20 min, 1:45-2:05 p.m.
[2022-07-16] MEDS: Normal Saline 500 ML IV (14:45)
[2022-07-16 16:03] LABS: Source Nasal/Nares
--- NOTE | 2022-07-16 16:18 | NUR.NOTE ---
pt declined a meal tray Nursing Note:
[2022-07-16 16:35] LABS: COVID-19 PCR Negative (Negative)
[2022-07-16 16:46] LABS: Abs Immature Grans 0.05 10^3/uL (0.0-0.06); Absolute Basophil Count 0.04 10^3/uL (0.0-0.2); Absolute Eosinophil Count 0.06 10^3/uL (0.0-0.7); Absolute Lymphocyte Count 0.52 10^3/uL (1.2-3.4); Absolute Monocyte Count 0.62 10^3/uL (0.1-0.8); Absolute Neutrophil Count 6.55 10^3/uL (1.2-6.7); Basophils % 0.5; Eosinophils % 0.8; HCT 27.2 % (36.0-46.0); HGB 8.5 g/dL (11.2-15.7); Immature Grans % 0.6; Lymphocytes % 6.6; MCH 29.8 pg (27.0-33.0); MCHC 31.3 % (32.0-36.0); MCV 95 fL (80-95); MPV 10.1 fL (8.0-11.0); Monocytes % 7.9; Neutrophils % 83.6; Platelet Count 169 10^3/uL (130-400); RBC 2.85 10^6/uL (3.93-5.22); RDW-SD 62.4 fL; WBC 7.84 10^3/uL (4.4-10.8)
[2022-07-16 17:11] LABS: Bilirubin Negative (Negative); Blood Moderate (Negative); Clarity Sl Cloudy (Clear); Glucose Negative (Negative); Ketones Negative (Negative); Leukocyte Esterase Moderate (Negative); Nitrite Negative (Negative); Specific Gravity 1.015 (1.005-1.025); Urobilinogen 0.2 EU/dL (Up TO 0.2)
[2022-07-16 17:13] LABS: ALT 37 U/L (14-59); AST 34 U/L (15-37); Alkaline Phosphatase 86 U/L (46-116); Anion Gap 2.1 mmol/L (3-11); BUN 25 mg/dL (7-18); Bilirubin, Total 0.4 mg/dL (0.2-1.0); CO2 31.9 mmol/L (21.0-32.0); CREATININE 1.3 mg/dL (0.55-1.02); Calcium 8.1 mg/dL (8.5-10.1); Chloride 108 mmol/L (98-107); Estimated GFR 42.88 (mL/min/1.73m2); Glucose 110 mg/dL (74-106); Potassium 4.9 mmol/L (3.5-5.1); Sodium 142 mmol/L (136-145); Total Protein 5.2 g/dL (6.4-8.2)
[2022-07-16 17:18] LABS: Bacteria Few HPF (Negative); C & S Indicated? Yes; Casts Negative LPF (Negative); Crystals Negative HPF (Negative); Epithelial Cells Rare HPF (Negative); Mucus Negative (Negative)
--- NOTE | 2022-07-16 18:38 | W.PM.HP.N ---
Date of service: 07/16/22 Time of Service: 18:38 Assessment and Plan Assessment and plan (1) Weakness: Status: Acute Assessment and plan: PT/OT consult Failure to thrive at home; returned to ED for adm to H & R - (2) Atrial fibrillation: Status: Chronic Assessment and plan: rate controlled Qualifiers: Atrial fibrillation type: permanent Qualified Code(s): I48.2 - Chronic atrial fibrillation (3) DVT prophylaxis: Status: Deleted Assessment and plan: Enoxaparin (4) Discharge planning issues: Status: Deleted Assessment and plan: work with PT - to H & R hopefully Tuesday07/19/[address] Finnegan (5) Pleural effusion on left: Status: Resolved Assessment and plan: Maintaining SPO2 > 90% on RA No increased WOB History of Present Illness History of Present Illness Chief Complaint: Weakness Narrative: This is a 77 year old female with complex medical history, underlying etiology of? peritoneal mass (fibrosis versus malignancy versus chronic dissecting AAA) still unclear, hydronephrosis resolved, slowly recovering from pulmonary infections. She was discharged yesterday from [facility] in patient with having a new pleural effusion that was drained on 07/09 by general surgery.? Unfortunately a large volume was not sent to lab so results questionable but showing reactive mesothelial cells.? Cell block could not be obtained and lab is requesting a fresh sample of pleural fluid for cell block preparations if reaccumulation of pleural fluid occurs.?It was recommended she should have close follow up with [place] outpatient [place]ology team [place] [facility] [place].? They are considering rheumatology referral as well as there is question of retroperitoneal fibrosis.?Her oxygen was weaned off, she was medically stable but very weak.? PT had been working with her and recommendations were for skilled rehab which she adamantly refused.? She was discharged to home with home health services yesterday. She arrived to the ED this afternoon with weakness and failure to thrive. In discussion with care mgt, Siomara no longer has authorization to go to the H & R since she was discharged to home. She is placed on observation on the medical floor with failure to thrive pending authorization to H & R. Review of Systems All systems reviewed & are unremarkable except as noted in HPI and below PFSH All Active Problems (Updated 07/17/22 @ 08:14 by Nish Sun NP) Adult failure to thrive (Acute) Goals of care, counseling/discussion (Acute) Hypoxemia (Acute) Ventricular tachycardia (Chronic) Bacteremia due to Klebsiella pneumoniae (Acute) Weakness (Acute) Pneumonia (Acute) Gross hematuria (Acute) Retroperitoneal mass (Acute) Anemia (Chronic) Bilateral hydronephrosis (Acute) Acute renal failure (Acute) AAA (abdominal aortic aneurysm) (Chronic) Pulmonary emboli (Chronic) Pneumonia (Acute) Respiratory failure with hypoxia and hypercapnia (Acute) NSCLC of right lung (Acute) Palliative care patient (Acute) Pulmonary hypertension (Chronic) Cor pulmonale (Acute) Weakness of both legs (Acute) Hypoxia (Acute) Requires supplemental oxygen (Acute) Hypoxia (Acute) Shortness of breath (Acute) CHF (congestive heart failure) (Chronic) HTN (hypertension) (Chronic) Atrial fibrillation (Chronic) Smoker (Acute) COPD (chronic obstructive pulmonary disease) (Chronic) Medical History Acute and chronic respiratory failure ([id number]) Acute exacerbation of chronic obstructive pulmonary disease Acute exacerbation of congestive heart failure Acute on chronic respiratory failure with hypoxia and hypercapnia Acute respiratory acidosis Acute respiratory failure with hypoxia and hypercapnia LORENE (acute kidney injury) Aortic mural thrombus Atrial fibrillation Bilateral hydronephrosis Chronic respiratory failure with hypoxia and hypercapnia COPD (chronic obstructive pulmonary disease) Extrinsic ureteral obstruction Hemoptysis HTN (hypertension) Hydronephrosis Hydronephrosis Hypercholesteremia Lung cancer Lung mass Pulmonary hypertension Smoker Surgical History H/O dissecting abdominal aortic aneurysm repair CHRONIC with mural thrombosis and calcification S/P appendectomy S/P cholecystectomy S/P hysterectomy Family History Father Hemochromatosis Cirrhosis due to hemochromatosis Diabetes Daughter Heart disease IN in 40s Social History Smoking/Tobacco Use Status: Former Tobacco Use Quit status: considering quitting Counseling given: patient declined Smoking risk assessment performed?: Yes Alcohol Intake: never Drug use: Never Substance use type: does not use Details: quit smoking a few days ago What type of physical activity do you participate in: none Do you feel safe at home: Yes Do you feel safe in your relationship?: Yes Additional Social history: lives alone, but a lot of family in the area. of lung cancer Meds Allergies and Home Medications Allergies Allergy/AdvReac Type Severity Reaction Status Date / Time No Known Allergies Allergy Unverified 07/16/22 14:14 Home Medications Medication Instructions Recorded Confirmed Type atorvastatin 80 mg tablet (Lipitor) 80 mg PO QPM 11/09/18 07/16/22 History rivaroxaban 20 mg tablet (Xarelto) 20 mg PO QPM #30 tabs 03/14/19 07/16/22 Rx diltiazem HCl 120 mg 120 mg PO HS 09/21/19 07/07/22 History capsule,extended release 24 hr Inhaler, Assist Devices [Pocket 1 ea miscellaneous DIRECTED ##0 08/27/21 07/07/22 Rx Chamber] tiotropium 2.5 mcg-olodaterol 2.5 2 puff inhalation DAILY 03/17/22 07/16/22 History mcg/actuation mist for inhalation (Stiolto Respimat) guaifenesin 600 mg tablet, 600 mg PO BID PRN 05/20/22 07/16/22 History extended release 12 hr levofloxacin 250 mg tablet 250 mg PO DAILY #7 tabs 07/04/22 07/07/22 Rx albuterol sulfate 90 mcg/actuation 1 - 2 puff inhalation Q4H PRN 07/16/22 07/16/22 History aerosol inhaler (Ventolin HFA) fluticasone propionate 50 1 spray intranasal HS 07/16/22 07/16/22 History mcg/actuation nasal spray,suspension glycerin (adult) 1 supp NM BID PRN 07/16/22 07/16/22 History multivitamin-iron sulfate 15 1 tab PO DAILY 07/16/22 07/16/22 History mg-folic acid 400 mcg tablet (Tab-A-Charlie Multivitamin w-iron) Exam Const General: frail appearing and ill appearing chronically Nutritional Appearance: thin Orientation: alert, awake and oriented x3 HENMT Head: normal to inspection, normocephalic and atraumatic Resp Effort & Inspection: normal respiratory effort, able to speak in complete sentences, no tripod positioning and no use of accessory muscles Auscultation: clear to auscultation bilaterally and diminished lung sounds bilaterally in the lower lung moses Cardio Rate: regular rate Rhythm: abnormal rhythm irregularly irregular Heart Sounds: S1 normal and S2 normal Pulses: normal peripheral pulses Neuro General: patient alert, patient awake, patient oriented x3, moves all extremities and no focal motor deficits Results Labs Result diagrams: 07/18/22 06:40 07/18/22 06:40 Labs: Laboratory Results - last 24 hr 07/16/22 07/16/22 07/16/22 15:56 16:35 16:35 WBC 7.84 RBC 2.85 L Hgb 8.5 L Hct 27.2 L MCV 95 MCH 29.8 MCHC 31.3 L RDW 18.0 H Plt Count 169 MPV 10.1 Immature Gran % 0.6 Neutrophils % 83.6 Lymphocytes % 6.6 Monocytes % 7.9 Eosinophils % 0.8 Basophils % 0.5 Nucleated RBC % 0.0 Absolute Neutrophils 6.55 Absolute Lymphocytes 0.52 L Absolute Monocytes 0.62 Absolute Eosinophils 0.06 Absolute Basophils 0.04 Sodium 142 Potassium 4.9 Chloride 108 H Carbon Dioxide 31.9 Anion Gap 2.1 L BUN 25 H Creatinine 1.3 H Est GFR (CKD-EPI 2020) 42.88 Glucose 110 H Calcium 8.1 L Total Bilirubin 0.4 AST 34 ALT 37 Alkaline Phosphatase 86 Total Protein 5.2 L Albumin 2.0 L Urine Color Urine Clarity Urine pH Ur Specific Hungry Horse Urine Protein Urine Ketones Urine Blood Urine Nitrite Urine Bilirubin Urine Urobilinogen Ur Leukocyte Esterase Urine RBC Urine WBC Ur Epithelial Cells Urine Crystals Urine Bacteria Urine Casts Urine Mucus Ur Culture Indicated? Urine Glucose COVID-19 Source Nasal/Nares SARS-CoV-2 (PCR) Negative 07/16/22 17:05 WBC RBC Hgb Hct MCV MCH MCHC RDW Plt Count MPV Immature Gran % Neutrophils % Lymphocytes % Monocytes % Eosinophils % Basophils % Nucleated RBC % Absolute Neutrophils Absolute Lymphocytes Absolute Monocytes Absolute Eosinophils Absolute Basophils Sodium Potassium Chloride Carbon Dioxide Anion Gap BUN Creatinine Est GFR (CKD-EPI 2020) Glucose Calcium Total Bilirubin AST ALT Alkaline Phosphatase Total Protein Albumin Urine Color Yellow Urine Clarity Sl Cloudy Urine pH 7.0 Ur Specific Hungry Horse 1.015 Urine Protein Negative Urine Ketones Negative Urine Blood Moderate H Urine Nitrite Negative Urine Bilirubin Negative Urine Urobilinogen 0.2 Ur Leukocyte Esterase Moderate H Urine RBC 10-20 H Urine WBC 10-20 H Ur Epithelial Cells Rare Urine Crystals Negative Urine Bacteria Few Urine Casts Negative Urine Mucus Negative Ur Culture Indicated? Yes Urine Glucose Negative COVID-19 Source SARS-CoV-2 (PCR) Last Vital Signs Temp 35.9 C L 07/16/22 17:57 Pulse 69 07/16/22 17:57 Resp 16 07/16/22 17:57 BP 102/54 L 07/16/22 17:57 Pulse Ox 95 07/16/22 17:57
[2022-07-16] MEDS: Atorvastatin 40 MG TAB 80 MG PO (19:52)
[2022-07-16] MEDS: Rivaroxaban 10 MG TABLET 20 MG PO (19:52)
[2022-07-16] MEDS: Normal Saline Flush 10 ML SYR IVP (19:52)
[2022-07-16] MEDS: dilTIAZem CD 120 MG CAPCR PO (22:33)
[2022-07-17 03:10] VITALS: BP 115/50; PULSE 61; RESP 18; TEMP 36.7; O2SAT 97
[2022-07-17 07:22] LABS: Abs Immature Grans 0.04 10^3/uL (0.0-0.06); Absolute Basophil Count 0.05 10^3/uL (0.0-0.2); Absolute Eosinophil Count 0.07 10^3/uL (0.0-0.7); Absolute Lymphocyte Count 0.72 10^3/uL (1.2-3.4); Absolute Monocyte Count 0.52 10^3/uL (0.1-0.8); Absolute Neutrophil Count 5.12 10^3/uL (1.2-6.7); Basophils % 0.8; Eosinophils % 1.1; HGB 9.1 g/dL (11.2-15.7); Immature Grans % 0.6; MCH 30.4 pg (27.0-33.0); MCHC 32.5 % (32.0-36.0); MCV 94 fL (80-95); MPV 10.8 fL (8.0-11.0); Neutrophils % 78.5; Platelet Count 183 10^3/uL (130-400); RBC 2.99 10^6/uL (3.93-5.22); RDW 18.1 % (11.7-14.6); RDW-SD 61.6 fL; WBC 6.52 10^3/uL (4.4-10.8)
[2022-07-17 07:23] VITALS: BP 105/60; PULSE 60; RESP 17; TEMP 36.4; O2SAT 98
[2022-07-17 07:42] LABS: Anion Gap 4.9 mmol/L (3-11); BUN 25 mg/dL (7-18); CO2 29.1 mmol/L (21.0-32.0); CREATININE 1.3 mg/dL (0.55-1.02); Calcium 8.2 mg/dL (8.5-10.1); Chloride 107 mmol/L (98-107); Estimated GFR 42.88 (mL/min/1.73m2); Glucose 89 mg/dL (74-106); Magnesium 1.7 mg/dL (1.8-2.4); Potassium 4.3 mmol/L (3.5-5.1); Sodium 141 mmol/L (136-145)
[2022-07-17] MEDS: Tiotropium/Olodaterol 10 PUFF INHALER 2 PUFF IH (08:36)
[2022-07-17] MEDS: Normal Saline Flush 10 ML SYR IVP ×2 (08:46→19:26)
[2022-07-17] MEDS: Multivitamin TAB 1 TAB PO (08:46)
--- NOTE | 2022-07-17 11:39 | PDOC.CMIN ---
- If Service Date Differs Date of service: 07/17/22 Time of Service: 11:39 Care Management Initial Assess REASON FOR HOSPITALIZATION:: Failure to Thrive PAST MEDICAL HISTORY/PAST SURGICAL HISTORY:: All Active Problems. Goals of care, counseling/discussion (Acute). Hypoxemia (Acute). Ventricular tachycardia (Chronic). Bacteremia due to Klebsiella pneumoniae (Acute). Weakness (Acute). Pneumonia (Acute). Gross hematuria (Acute). Retroperitoneal mass (Acute). Anemia (Chronic). Bilateral hydronephrosis (Acute). Acute renal failure (Acute). AAA (abdominal aortic aneurysm) (Chronic). Pulmonary emboli (Chronic). Pneumonia (Acute). Respiratory failure with hypoxia and hypercapnia (Acute). NSCLC of right lung (Acute). Palliative care patient (Acute). Pulmonary hypertension (Chronic). Cor pulmonale (Acute). Weakness of both legs (Acute). Hypoxia (Acute). Requires supplemental oxygen (Acute). Hypoxia (Acute). Shortness of breath (Acute). CHF (congestive heart failure) (Chronic). HTN (hypertension) (Chronic). Atrial fibrillation (Chronic). Smoker (Acute). COPD (chronic obstructive pulmonary disease) (Chronic). Medical History. Acute and chronic respiratory failure ([id number]). Acute exacerbation of chronic obstructive pulmonary disease. Acute exacerbation of congestive heart failure. Acute on chronic respiratory failure with hypoxia and hypercapnia. Acute respiratory acidosis. Acute respiratory failure with hypoxia and hypercapnia. LORENE (acute kidney injury). Aortic mural thrombus. Atrial fibrillation. Bilateral hydronephrosis. Chronic respiratory failure with hypoxia and hypercapnia. COPD (chronic obstructive pulmonary disease). Extrinsic ureteral obstruction. Hemoptysis. HTN (hypertension). Hydronephrosis. Hydronephrosis. Hypercholesteremia. Lung cancer. Lung mass. Pulmonary hypertension. Smoker. Surgical History. H/O dissecting abdominal aortic aneurysm repair. CHRONIC. with mural thrombosis and calcification. S/P appendectomy. S/P cholecystectomy. S/P hysterectomy PREVIOUS FUNCTIONAL STATUS/SOCIAL/FAMILY SUPPORTS:: Siomara is and lives in [facility] alone with her 2 dogs. Her Granddaughter Yolette is taking care of them during her admission, and is staying with her currently, helping to care for her. Siomara identifies Yolette as being her primary support and point person to contact. Siomara is retired, drives and is independent at baseline. CURRENT FUNCTIONAL STATUS:: Siomara was lying in bed when CM met with her. She reported that she is feeling ok, but continues to struggle with her ambulation. CM reviewed her discharge plan, stating that her insurance PA is pending, but there won't be a determination until after the weekend. CM stated that if the PA is approved, she will transfer to [facility] as soon as a bed is available (Mon/Tu). If the PA is not approved, an alternative plan will need to be made, which will likely be her returning home with HH supports. CM will continue to follow. ADVANCE DIRECTIVES:: On File, [facility] is Madhav Ferris. Hayden Sanchez Has patient been provided with info about the portal/API?: Yes Did the patient sign up for the portal?: No CODE STATUS:: DNR/DNI INSURANCE COVERAGE / FINANCIAL ISSUES:: C MCR replacement CURRENT HOME/COMMUNITY SERVICES/EQUIPMENT:: HH services were ordered upon discharge, but did not start, as she returned to the ED the day after discharge. PRIMARY CARE PHYSICIAN:: Sherwin Ceja POTENTIAL DISCHARGE NEEDS:: SNF placement, follow up appointments PATIENT/FAMILY EDUCATION NEEDS:: Review discharge instructions and limitations, discussion of self care needs including ask me three. ANTICIPATED BARRIERS TO DISCHARGE:: Waiting for an authorization from Siomara's insurance for SNF. TRANSPORTATION:: Via facility van vs private vehicle by family. PLAN:: Siomara returned to the ED the day after discharge, after failing to thrive at home post discharge. She is agreeable to SNF, and per PT evaluation in ED, she was not able to ambulate out of bed. CM requested a PA, initiated by [facility], for her to go to SNF. PA was not obtained while Siomara was in the ED, therefore she is waiting in observation status for the PA and pending transfer to [facility], who has offered a bed. She will transport via facility w/c van. She will follow up with her PCP and discharge plan of care. CM will continue to follow. Readmission - Within the Past 30 Days Yes or No: Y - Date of First Admission Date of 1st Admission: 07/07/22 - Date of this Admission Date of Admission: 07/16/22 This admission was: Through ED - Office Visit Since 1st Admission Have you seen your PCP in the office since discharge?: No Had an appointment Been Scheduled?: Yes Date of Scheduled Appointment: 07/26/22 - I. Interview patient and/or Family Difficulty reaching your doctor or getting an office appt?: No Have you had trouble purchasing/ or taking medication?: No How do you take your medications and set up your pills?: with support from Yolette, granddaughter Have you had trouble with getting meals at home?: No Did you feel ready for discharge when you left the last time: No Why did you not feel ready for discharge?: difficulty with ambulation, weakness Were services received that you thought were set up on disch: No Why weren't services received?: Returned to the ED If patient did not receive services, were there orders at: Yes Did you call your physician beore you came to the ED?: No - If the patient had a VNA ordered Did the patient have a VNA order?: Yes Did you call the VNA before you came?: Yes Did the VNA tell you to come to the hospital?: Yes Do you know if the VNA called your physician?: No - ED visits How many ED visits in the past 12 months: 8 - Assessment for Readmission Summary of readmission circumstances, based upon interviews: Siomara was admitted from 07/07-07/15/22, and was recommended to go to SNF. She declined to have referrals sent, as she felt that she would be safe returning home with services and the support of her granddaughter, who is currently living with her. On the day of her discharge, she stated that she would prefer to go to SNF, and asked for referrals to be sent. She was offered a bed at [facility], pending a PA from her insurance, [facility]. She was discharge ready, per provider, and had 24/7 support at home, therefore she was discharged home with the intent to transfer from home to [facility] the following day. LEATHA received a call from [facility] on Tuesday07/16/22, who reported that due to her level of independence with PT, she would be declined for SNF, with the alternative option of home with HH services. LEATHA informed [facility] that she returned home with the intention of going to SNF from the community. [facility] stated that a new PA would need to be submitted with information that will support her SNF placement. LEATHA received a call from Yolette, Siomara's granddaughter, who stated that she is declining at home, and is not able to ambulate out of bed to the bathroom, and she is not able to eat. LEATHA asked if HH had visited yet, and Yolette stated that she cancelled HH, with the intention of bringing Siomara to SNF that day. LEATHA advised that she call HH and ask for them to evaluate Siomara at home. LEATHA called HH with no answer. Yolette called CM and stated that HH refused to visit, stating that she should go to the ED for evaluation. Yolette brought Siomara to the ED for evaluation. In the ED, PT evaluated Siomara and stated that she was unable to ambulate out of bed. PT also noted that her BP was low. CM contacted admissions at [facility], and initiated a new PA with the documentation from the ED. The PA was not received prior to end of day Tuesday, and there are no admissions over the weekend at [facility]. & will communicate the response to the PA on Tuesday, and will plan for admission early next week, pending PA approval and bed availability. CM will continue to follow.
[2022-07-17] MEDS: Magnesium Chloride 64 MG TABCR PO ×2 (13:26→19:27)
[2022-07-17 14:50] VITALS: O2SAT 93
[2022-07-17 14:59] VITALS: BP 102/62; PULSE 67; RESP 16; TEMP 36.5; O2SAT 94
--- NOTE | 2022-07-17 15:02 | PT.INPN ---
PT Notes Visit Reasons: Failure to Thrive Date: 07/17/2022 Treatment time: 25 minutes Treatment: [id number] Time of treatment: 2:15 - 2:40 PM Subjective: Alert and oriented x3 with complaints of generalized weakness. No complaints of pain offered. She is hoping to eventually return home, but is interested in going to a SNF for further rehab first. She complained of mild lightheadedness since shortness of breath in the upright position. Objective: 77-year-old female recently admitted with failure to thrive. She was admitted to the hospital through the ER yesterday, and at that time, was unable to ambulate, etc. Functional mobility: She is independent with assuming the supine to sitting to standing positions and vice versa. Gait: She ambulated approximately 200 feet initially with a wheeled walker with minimal contact guarding, and then another 50 feet without assistive device but with contact guarding. She is able walk on heels and toes. Resting pulse was 63 bpm and O2 sat at 84%, and following ambulation her pulse was 72 bpm and O2 sat 84%. I informed her attending nurse and Dr. Veras regarding the O2 sat. Balance: Her unilateral standing balance was less than 3 seconds. She is able to stand with her feet together without loss of balance. Negative Romberg sign Articular: She had full functional range of motion throughout her articular structures without pain on movement. Strength: Her strength is generally rated 4/5 Neuro: Hyporeflexive, sensations intact light touch and proprioception, and has full motor control. Her fingertips to nose is accurate without ataxia and rapid repetitive arm movements intact. Social: Lives with her granddaughter and has 2 dogs in a one-story home which she owns. She has 4 steps entering the home with a railing. Her bathroom has grab bars and a combo tub shower with a flexible hose. She uses a stool to sit while showering. She generally walks with a cane around the house along with her granddaughter, owns a walker, but does not like using it because it needs to be repaired. Assessment: Significant change in her functional status and ambulatory skills today compared to yesterday. She still requesting eventual transfer to SNF for further rehab. We will continue to follow her while she is in the hospital focusing on strengthening and conditioning along with gait training. Plan: The session consisted of gait training, along with low resistive strength exercises to her extremities. She will continue to be seen daily until discharge for gait training and strengthening, bed mobility activities, etc. Disclaimer: This note was created using [employer] voice recognition software. It was reviewed for major content. However, there may be multiple small discrepancies and errors due to the voice recognition aspects of the software.
--- NOTE | 2022-07-17 18:32 | W.PM.PROGNOT ---
Date of Service Date of service: 07/17/22 Time of Service: 16:00 Assessment and Plan Assessment and plan (1) Weakness: Status: Acute Assessment and plan: PT/OT consult Failure to thrive at home; returned to ED for adm to H & R - (2) Atrial fibrillation: Status: Chronic Assessment and plan: rate controlled Qualifiers: Atrial fibrillation type: permanent Qualified Code(s): I48.2 - Chronic atrial fibrillation (3) DVT prophylaxis: Status: Deleted Assessment and plan: Enoxaparin (4) Discharge planning issues: Status: Deleted Assessment and plan: work with PT - to H & R hopefully Tuesday07/19/[address] Finnegan (5) Pleural effusion on left: Status: Resolved Assessment and plan: Maintaining SPO2 > 90% on RA No increased WOB Subjective Subjective Patient reports: no new complaints Interval history since last seen: Resting comforably in bed. Conversant, pleasant AxO x4 Exam Const General: frail appearing and ill appearing chronically Nutritional Appearance: thin Orientation: alert, awake and oriented x3 HENMT Head: normal to inspection, normocephalic and atraumatic Resp Effort & Inspection: normal respiratory effort, able to speak in complete sentences, no tripod positioning and no use of accessory muscles Auscultation: clear to auscultation bilaterally and diminished lung sounds bilaterally in the lower lung moses Cardio Rate: regular rate Rhythm: abnormal rhythm irregularly irregular Heart Sounds: S1 normal and S2 normal Pulses: normal peripheral pulses Neuro General: patient alert, patient awake, patient oriented x3, moves all extremities and no focal motor deficits Objective Last Vital Signs Temp 36.5 C 07/17/22 14:59 Pulse 67 07/17/22 14:59 Resp 16 07/17/22 14:59 BP 102/62 07/17/22 14:59 Pulse Ox 94 07/17/22 14:59 Laboratory Results - last 24 hr 07/17/22 07/17/22 06:00 06:00 WBC 6.52 RBC 2.99 L Hgb 9.1 L Hct 28.0 L MCV 94 MCH 30.4 MCHC 32.5 RDW 18.1 H Plt Count 183 MPV 10.8 Immature Gran % 0.6 Neutrophils % 78.5 Lymphocytes % 11.0 Monocytes % 8.0 Eosinophils % 1.1 Basophils % 0.8 Nucleated RBC % 0.0 Absolute Neutrophils 5.12 Absolute Lymphocytes 0.72 L Absolute Monocytes 0.52 Absolute Eosinophils 0.07 Absolute Basophils 0.05 Sodium 141 Potassium 4.3 Chloride 107 Carbon Dioxide 29.1 Anion Gap 4.9 BUN 25 H Creatinine 1.3 H Est GFR (CKD-EPI 2020) 42.88 Glucose 89 Calcium 8.2 L Magnesium 1.7 L Reviewed Pertinent PMH: Yes
[2022-07-17 19:15] VITALS: BP 96/66; PULSE 55; RESP 18; TEMP 36.5; O2SAT 94
[2022-07-17] MEDS: Atorvastatin 40 MG TAB 80 MG PO (19:26)
[2022-07-17] MEDS: dilTIAZem CD 120 MG CAPCR PO (19:27)
[2022-07-17] MEDS: Rivaroxaban 10 MG TABLET 20 MG PO (19:27)
[2022-07-17 23:55] VITALS: BP 102/53; PULSE 60; RESP 16; TEMP 36.1; O2SAT 93
[2022-07-18] VITALS (7 sets, daily range): BP systolic 69–109; BP diastolic 38–69; PULSE 55–82; RESP 18–24; TEMP 36.6–37.1; O2SAT 88–98
[2022-07-18 07:03] LABS: Abs Immature Grans 0.04 10^3/uL (0.0-0.06); Absolute Basophil Count 0.04 10^3/uL (0.0-0.2); Absolute Eosinophil Count 0.08 10^3/uL (0.0-0.7); Absolute Lymphocyte Count 0.66 10^3/uL (1.2-3.4); Absolute Monocyte Count 0.56 10^3/uL (0.1-0.8); Absolute Neutrophil Count 6.01 10^3/uL (1.2-6.7); Basophils % 0.5; Eosinophils % 1.1; HCT 26.2 % (36.0-46.0); HGB 8.5 g/dL (11.2-15.7); Immature Grans % 0.5; Lymphocytes % 8.9; MCH 30.5 pg (27.0-33.0); MCHC 32.4 % (32.0-36.0); MCV 94 fL (80-95); MPV 10.8 fL (8.0-11.0); Monocytes % 7.6; Neutrophils % 81.4; Platelet Count 181 10^3/uL (130-400); RBC 2.79 10^6/uL (3.93-5.22); RDW 18.4 % (11.7-14.6); RDW-SD 62.5 fL; WBC 7.39 10^3/uL (4.4-10.8)
[2022-07-18 07:15] LABS: BUN 27 mg/dL (7-18); CREATININE 1.3 mg/dL (0.55-1.02); Calcium 8.2 mg/dL (8.5-10.1); Chloride 107 mmol/L (98-107); Estimated GFR 42.88 (mL/min/1.73m2); Glucose 99 mg/dL (74-106); Potassium 4.3 mmol/L (3.5-5.1); Sodium 141 mmol/L (136-145)
[2022-07-18 07:16] LABS: Magnesium 1.7 mg/dL (1.8-2.4)
[2022-07-18] MEDS: Multivitamin TAB 1 TAB PO (07:38)
[2022-07-18] MEDS: Docusate Sodium 100 MG CAP PO (07:38)
[2022-07-18] MEDS: Normal Saline Flush 10 ML SYR IVP (07:38)
[2022-07-18] MEDS: Magnesium Chloride 64 MG TABCR PO ×2 (07:38→14:18)
[2022-07-18] MEDS: Tiotropium/Olodaterol 10 PUFF INHALER 2 PUFF IH (07:56)
--- NOTE | 2022-07-18 10:36 | NT_ITS ---
PT Notes Visit Reasons: Failure to Thrive Date: 07/18/2022 Attempted to treat patient twice today, and she refused. Each time, she was lyi ng in the position on her left side complaining of nausea and disinterest in moving.
--- NOTE | 2022-07-18 15:16 | NUR.NOTE ---
Nursing Note: Pt yahaira resistive to care, acting obstinate. incontinent of urine, bed wet. needed to do full bed change. asked Pt to stand, she refused. Was sitting on edge of bed and flung herself onto bed say I have to lay down. Pt refusing to eat, refused PT session today. I just want to sleep for now, leave me alone Pt slept most of shift. CACHORRO Beaver in room to witness Pt's behavior.
--- NOTE | 2022-07-18 19:23 | PGE_ITS ---
Date of Service Date of service: 07/18/22 Time of Service: 14:00 Assessment and Plan Assessment and plan (1) Weakness: Status: Acute Assessment and plan: PT/OT consult Failure to thrive at home; returned to ED for adm to H & R - (2) Atrial fibrillation: Status: Chronic Assessment and plan: rate controlled Qualifiers: Atrial fibrillation type: permanent Qualified Code(s): I48.2 - Chronic atrial fibrillation (3) DVT prophylaxis: Status: Deleted Assessment and plan: Enoxaparin (4) Discharge planning issues: Status: Deleted Assessment and plan: work with PT - to H & R hopefully Tuesday07/19/[address] Finnegan (5) Pleural effusion on left: Status: Resolved Assessment and plan: Maintaining SPO2 > 90% on RA No increased WOB (6) Discharge planning issues: Status: Acute Assessment and plan: H$R when authorization from insurance is completed - she is in line with this plan Discussed with Dr Haskins. Subjective Subjective Patient reports: no new complaints, tolerating a regular diet, voiding w/o diffi culty, bowel movement and afebrile; denies flatus, diarrhea, nausea or vomiting Interval history since last seen: Resting comfortably, conversant and pleasant. She is reading book and enjoying it. Exam Const General: frail appearing and ill appearing chronically Nutritional Appearance: thin Orientation: alert, awake and oriented x3 HENMT Head: normal to inspection, normocephalic and atraumatic Resp Effort & Inspection: normal respiratory effort, able to speak in complete sentences, no tripod positioning and no use of accessory muscles Auscultation: clear to auscultation bilaterally and diminished lung sounds bilaterally in the lower lung moses Cardio Rate: regular rate Rhythm: abnormal rhythm irregularly irregular Heart Sounds: S1 normal and S2 normal Pulses: normal peripheral pulses Neuro General: patient alert, patient awake, patient oriented x3, moves all extremities and no focal motor deficits Objective Last Vital Signs Temp 36.7 C 07/18/22 15:38 Pulse 55 L 07/18/22 15:38 Resp 20 07/18/22 15:38 BP 97/55 L 07/18/22 15:38 Pulse Ox 88 L 07/18/22 15:38 Laboratory Results - last 24 hr 07/18/22 07/18/22 07/18/22 06:40 06:40 06:40 WBC 7.39 RBC 2.79 L Hgb 8.5 L Hct 26.2 L MCV 94 MCH 30.5 MCHC 32.4 RDW 18.4 H Plt Count 181 MPV 10.8 Immature Gran % 0.5 Neutrophils % 81.4 Lymphocytes % 8.9 Monocytes % 7.6 Eosinophils % 1.1 Basophils % 0.5 Nucleated RBC % 0.0 Absolute Neutrophils 6.01 Absolute Lymphocytes 0.66 L Absolute Monocytes 0.56 Absolute Eosinophils 0.08 Absolute Basophils 0.04 Sodium 141 Potassium 4.3 Chloride 107 Carbon Dioxide 29.0 Anion Gap 5.0 BUN 27 H Creatinine 1.3 H Est GFR (CKD-EPI 2020) 42.88 Glucose 99 Calcium 8.2 L Magnesium 1.7 L
[2022-07-19 04:28] VITALS: BP 100/56; PULSE 67; RESP 18; TEMP 36.7; O2SAT 91
[2022-07-19 06:52] LABS: Abs Immature Grans 0.05 10^3/uL (0.0-0.06); Absolute Basophil Count 0.03 10^3/uL (0.0-0.2); Absolute Eosinophil Count 0.05 10^3/uL (0.0-0.7); Absolute Lymphocyte Count 0.68 10^3/uL (1.2-3.4); Absolute Monocyte Count 0.54 10^3/uL (0.1-0.8); Absolute Neutrophil Count 5.86 10^3/uL (1.2-6.7); Basophils % 0.4; Eosinophils % 0.7; HCT 27.2 % (36.0-46.0); HGB 8.9 g/dL (11.2-15.7); Immature Grans % 0.7; Lymphocytes % 9.4; MCH 30.7 pg (27.0-33.0); MCHC 32.7 % (32.0-36.0); MCV 94 fL (80-95); MPV 10.5 fL (8.0-11.0); Monocytes % 7.5; Neutrophils % 81.3; Platelet Count 179 10^3/uL (130-400); RDW-SD 61.9 fL; WBC 7.21 10^3/uL (4.4-10.8)
[2022-07-19 07:04] LABS: Anion Gap 3.8 mmol/L (3-11); BUN 24 mg/dL (7-18); CO2 30.2 mmol/L (21.0-32.0); CREATININE 1.4 mg/dL (0.55-1.02); Calcium 8.2 mg/dL (8.5-10.1); Chloride 108 mmol/L (98-107); Estimated GFR 39.23 (mL/min/1.73m2); Glucose 98 mg/dL (74-106); Magnesium 1.6 mg/dL (1.8-2.4); Potassium 4.7 mmol/L (3.5-5.1); Sodium 142 mmol/L (136-145)
[2022-07-19 07:39] VITALS: BP 104/56; PULSE 63; RESP 21; TEMP 36.3; O2SAT 95
[2022-07-19] MEDS: Tiotropium/Olodaterol 10 PUFF INHALER 2 PUFF IH (07:49)
[2022-07-19] MEDS: Magnesium Chloride 64 MG TABCR PO (09:18)
[2022-07-19] MEDS: Normal Saline Flush 10 ML SYR IVP (09:19)
[2022-07-19] MEDS: Multivitamin TAB 1 TAB PO (09:19)
--- NOTE | 2022-07-19 10:01 | DSE_ITS ---
Date of service: 07/19/22 Time of Service: 10:01 DS: Diagnosis Discharge Diagnosis (1) Weakness: Status: Acute Asessment and Plan: Improving, ambulates without assistance (2) Atrial fibrillation: Status: Chronic Asessment and Plan: Chronic, continue home meds (3) Pleural effusion on left: Status: Resolved Asessment and Plan: Lungs clear, diminished throughout Discharge Plan Disposition Patient Disposition: SNF ([facility]) [facility] Condition: Poor Discharge Details Reason For Visit: Failure to Thrive Admit Date/Time: 07/16/22 16:20 Admit Provider: Clinton Finnegan Attending Provider: Clinton Finnegan [facility] Course: This is a 77 year old female with complex medical history, underlying etiology of? peritoneal mass (fibrosis versus malignancy versus chronic dissecting AAA) still unclear, hydronephrosis resolved, slowly recovering from pulmonary infections.? She was discharged yesterday from [facility] in patient with having a new pleural effusion that was drained on 07/09 by general surgery.? Unfortunately a large volume was not sent to lab so results questionable but showing reactive mesothelial cells.? Cell block could not be obtained and lab is requesting a fresh sample of pleural fluid for cell block preparations if reaccumulation of pleural fluid occurs.?It was recommended she should have close follow up with [place] [facility] [place].? They are considering rheumatology referral as well as there is question of retroperitoneal fibrosis.?Her oxygen was weaned off, she was medically stable but very weak.? PT had been working with her and recommendations were for skilled rehab which she adamantly refused.? She was discharged to home with home health services. The next day, Patient arrived to the ED with c/o weakness and failure to thrive.? In discussion with care mgt, Siomara no longer had authorization to go to the H & R since she was discharged to home.? She was placed on observation on the medical floor with failure to thrive pending authorization to H & R. She has been comfortable with no complaints, normal labs and stable vital signs. She was authorzied and accepted to go to the [facility] today. She is discharged stable with current med list and addition of magnesium orally for chronic hypomagnesemia. The [facility] are accepting her last Covid 19 PCR result of negative. Discussed with Dr Haskins. Home Meds and New Rx's Prescriptions: New docusate sodium [Colace] 100 mg Capsule 100 mg PO TID PRN PRNQty: 0 0RF Mag 64 64 mg Tablet,Delayed Release (Dr/Ec) 64 mg PO TID Qty: 90 0RF Continued Xarelto 20 mg tablet 20 mg PO QPM Qty: 30 11RF Rx Instructions: must administer with evening meal diltiazem HCl 120 mg capsule,extended release 24hr 120 mg PO HS Tab-A-Charlie Multivitamin w-iron 15 mg iron- 400 mcg tablet 1 tab PO DAILY Label Comments: TAKE ONE TABLET BY MOUTH EVERY DAY glycerin (adult) Suppository [address] BID PRN Label Comments: Insert 1 suppository into rectum twice a day as needed for constipation albuterol sulfate [Ventolin HFA] 90 mcg/actuation HFA aerosol inhaler 1 - 2 puff INHALATION Q4H PRN Label Comments: Inhale 1-2 puff every four to six hours as needed fluticasone propionate 50 mcg/actuation spray,suspension 1 spray INTRANASAL HS atorvastatin [Lipitor] 80 mg Tablet 80 mg PO QPM Inhaler, Assist Devices [Pocket Chamber] 1 ea miscellaneous DIRECTED Qty: 0 0RF Stiolto Respimat 2.5-2.5 mcg/actuation mist 2 puff INHALATION DAILY Label Comments: Inhale 2 puff as directed once a day guaifenesin 600 mg tablet extended release 12hr 600 mg PO BID PRN No Action levofloxacin 250 mg tablet 250 mg PO DAILY Qty: 7 0RF Discharge Instructions Activity:: Activity as Tolerated Equipment/Supplies:: No Equipment Needed Diet:: As Tolerated Discharge Orders Discharge Orders: Discharge Order (Routine); Ordered 07/19/22 Ordered By: Maye Perla DS: Summary Time Spent with Patient providing and/or coordinating discharge services: Less than 30 minutes Status at Discharge Functional status at discharge: independent ambulation Overall status at discharge: patient is back to baseline Mental Status: mental status grossly normal Speech and Movement: speech and movement normal Mood: congruent mood Affect: normal affect Exam Psych Mental Status: mental status grossly normal Speech and Movement: speech and movement normal Mood: congruent mood Affect: normal affect DS: Data Vitals/I&O Vitals and I&O: Vital Signs Temperature 36.3 C L 07/19/22 07:39 Temperature Source Tympanic 07/19/22 07:39 Pulse 63 07/19/22 07:39 Pulse Rhythm Irregular 07/18/22 23:10 Pulse 65 07/16/22 16:40 Respiratory Rate 21 07/19/22 07:39 Respiratory Effort Non-Labored 07/18/22 23:10 Respiratory Depth Normal 07/18/22 23:10 Respiratory Pattern Normal 07/18/22 23:10 Blood Pressure 104/56 L 07/19/22 07:39 Blood Pressure Mean 80 07/16/22 16:31 Pulse Oximetry 95 07/19/22 07:39 Oxygen Delivery Method Nasal Cannula 07/19/22 07:39 Oxygen Flow Rate 1 07/19/22 07:39 Pain Level 0 07/19/22 04:28 Comment 07/19/22 07:39 Intake & Output 07/18/22 07/18/22 07/19/22 11:59 23:59 11:59 Intake Total 710 / 910 100 / 100 Output Total 100 / 100 Balance 710 / 910 0 / 0 Weight 49.9 kg Intake: IV Oral 700 / 900 100 / 100 Output: Urine 100 / 100 Other: Urine Color Yellow Straw Urine Appearance Clear Urine Odor Normal Comment patient was incont and voided in commode Stool Size Stool Characteristics Voiding Methods Diaper Bedside Commode Incontinent Diaper Incontinent Data Completed and Pending Labs on day of discharge: Labs from last 24 hours 07/19/22 07/19/22 06:15 06:15 WBC 7.21 RBC 2.90 L Hgb 8.9 L Hct 27.2 L MCV 94 MCH 30.7 MCHC 32.7 RDW 18.0 H Plt Count 179 MPV 10.5 Immature Gran % 0.7 Neutrophils % 81.3 Lymphocytes % 9.4 Monocytes % 7.5 Eosinophils % 0.7 Basophils % 0.4 Nucleated RBC % 0.0 Absolute Neutrophils 5.86 Absolute Lymphocytes 0.68 L Absolute Monocytes 0.54 Absolute Eosinophils 0.05 Absolute Basophils 0.03 Sodium 142 Potassium 4.7 Chloride 108 H Carbon Dioxide 30.2 Anion Gap 3.8 BUN 24 H Creatinine 1.4 H Est GFR (CKD-EPI 2020) 39.23 Glucose 98 Calcium 8.2 L Magnesium 1.6 L PFSH All Active Problems (Updated 07/18/22 @ 19:25 by Maye Perla NP) Discharge planning issues (Acute) Adult failure to thrive (Acute) Goals of care, counseling/discussion (Acute) Hypoxemia (Acute) Ventricular tachycardia (Chronic) Bacteremia due to Klebsiella pneumoniae (Acute) Weakness (Acute) Pneumonia (Acute) Gross hematuria (Acute) Retroperitoneal mass (Acute) Anemia (Chronic) Bilateral hydronephrosis (Acute) Acute renal failure (Acute) AAA (abdominal aortic aneurysm) (Chronic) Pulmonary emboli (Chronic) Pneumonia (Acute) Respiratory failure with hypoxia and hypercapnia (Acute) NSCLC of right lung (Acute) Palliative care patient (Acute) Pulmonary hypertension (Chronic) Cor pulmonale (Acute) Weakness of both legs (Acute) Hypoxia (Acute) Requires supplemental oxygen (Acute) Hypoxia (Acute) Shortness of breath (Acute) CHF (congestive heart failure) (Chronic) HTN (hypertension) (Chronic) Atrial fibrillation (Chronic) Smoker (Acute) COPD (chronic obstructive pulmonary disease) (Chronic) Medical History Acute and chronic respiratory failure ([id number]) Acute exacerbation of chronic obstructive pulmonary disease Acute exacerbation of congestive heart failure Acute on chronic respiratory failure with hypoxia and hypercapnia Acute respiratory acidosis Acute respiratory failure with hypoxia and hypercapnia LORENE (acute kidney injury) Aortic mural thrombus Atrial fibrillation Bilateral hydronephrosis Chronic respiratory failure with hypoxia and hypercapnia COPD (chronic obstructive pulmonary disease) Extrinsic ureteral obstruction Hemoptysis HTN (hypertension) Hydronephrosis Hydronephrosis Hypercholesteremia Lung cancer Lung mass Pulmonary hypertension Smoker Surgical History H/O dissecting abdominal aortic aneurysm repair CHRONIC with mural thrombosis and calcification S/P appendectomy S/P cholecystectomy S/P hysterectomy Family History Father Hemochromatosis Cirrhosis due to hemochromatosis Diabetes Daughter Heart disease IA in 40s Social History Smoking/Tobacco Use Status: Former Tobacco Use Quit status: considering quitting Counseling given: patient declined Smoking risk assessment performed?: Yes Alcohol Intake: never Drug use: Never Substance use type: does not use Details: quit smoking a few days ago What type of physical activity do you participate in: none Do you feel safe at home: Yes Do you feel safe in your relationship?: Yes Additional Social history: lives alone, but a lot of family in the area. of lung cancer
--- NOTE | 2022-07-19 15:54 | PDOC.CMDIS ---
- If Service Date Differs Date of service: 07/19/22 Time of Service: 15:54 LACE Index Scoring Tool - Questions: Length of Stay (in days): 3 Acuity (Admit via E.D.?): Yes Comorbidities: Congestive Heart Failure, Chronic Pulmonary Disease, Any Tumor E.D. Visits: 8 - Answers: Total Score: 15 Risk of Readmission: High Risk Care Management Discharge Reason for Hospitalization: Failure to Thrive Discharge Plan: Siomara transferred to [facility] today, after obtaining a PA from her insurance. She transported via facility w/c [employer]. called her granddaughter, Yolette, to inform her of her acceptance and discharge. Siomara will follow up with her PCP and discharge plan of care. She is happy to be going to rehab. Patient/Family Education Needs: Review discharge instructions and limitations, discussion of self care needs including ask me three. Services Needed at Discharge: [facility] Facility ([facility]), Transportation (facility w/c van)
== END 2022-07-19 11:31 | disposition skilled nursing facility (03) ==
LOC: ER 15:48 → MS 17:24
PROVIDERS: Nurse Practitioner Family; Admitting Provider Internal Medicine; Emergency Provider Physician Assistant; PCP Family Medicine; Visit Provider Internal Medicine
DX: R62.7 Adult failure to thrive (principal); R53.1 Weakness; Z68.1 Body mass index [BMI] 19.9 or less, adult; J90 Pleural effusion, not elsewhere classified; E83.42 Hypomagnesemia; I48.91 Unspecified atrial fibrillation; R19.09 Other intra-abdominal and pelvic swelling, mass and lump; I11.0 Hypertensive heart disease with heart failure; I50.9 Heart failure, unspecified; J44.9 Chronic obstructive pulmonary disease, unspecified; F17.210 Nicotine dependence, cigarettes, uncomplicated; R09.02 Hypoxemia; Z86.711 Personal history of pulmonary embolism; D64.9 Anemia, unspecified; E78.00 Pure hypercholesterolemia, unspecified; C34.91 Malignant neoplasm of unspecified part of right bronchus or lung; I27.20 Pulmonary hypertension, unspecified; Z99.81 Dependence on supplemental oxygen; Z20.822 Contact with and (suspected) exposure to COVID-19
CPT/HCPCS: 36415; 80048; 80053; 87635; 94640; 96360; 97110; 97116; 97163; 99284; 99285; 81003; 81015; 83735; 85025; 87086; 94667; 99217; 99219; 99225